=== PATIENT | female | born 1945 | race Caucasian/White ===

== ENCOUNTER 2020-06-15 10:45 | Inpatient (IN) | payer MEDICARE, BC ==
--- NOTE | 2020-06-15 11:02 | ED ---
URI HPI - General Chief Complaint: Upper Respiratory Infection Stated Complaint: Cough & fever Time Seen by Provider: 06/15/20 10:45 Source: patient, RN notes reviewed Mode of arrival: EMS Limitations: no limitations - History of Present Illness Initial Comments: This is a 74-year-old female who is still a smoker who presents by EMS from her assisted living facility with complaints of cough shortness of breath going on since last night. MD Complaint: fever, cough - Related Data Home Medications Medication Instructions Recorded Confirmed ALPRAZolam [Xanax] 0.25 mg PO TID PRN 06/15/20 06/15/20 Baclofen 10 mg PO BID@0800,199906/15/20 06/15/20 Betamethasone Dipropionate 1 applic TOPICAL BID PRN 06/15/20 06/15/20 [Diprolene AF 0.05% Cream] Carbamide Peroxide [Debrox Otic] 6 drops BOTH EARS DAILY PRN 06/15/20 06/15/20 Docusate [Colace] 100 mg PO BID@0800,199906/15/20 06/15/20 Fluticasone/Umeclidin/Vilanter 1 puff INHALATION RT-DAILY@199906/15/20 06/15/20 [Trelegy Ellipta 100-62.5-25] Furosemide [Lasix] 20 mg PO DAILY PRN 06/15/20 06/15/20 Gabapentin [Neurontin] 300 mg PO TID@0800,1300,199906/15/20 06/15/20 Ipratropium-Albuterol Nebulize 3 ml INHALATION RT-QID PRN 06/15/20 06/15/20 [Duoneb 0.5 mg-3 mg/3 ml Soln] Levothyroxine Sodium [Synthroid] 50 mcg PO DAILY@0800 06/15/20 06/15/20 Magnesium Hydroxide [Milk of 2,400 mg PO DAILY PRN 06/15/20 06/15/20 Magnesia] Meclizine HCl 25 mg PO BID PRN 06/15/20 06/15/20 Mupirocin 2% Oint [Bactroban 2% 1 applic TOPICAL TID PRN 06/15/20 06/15/20 Oint] Polyethylene Glycol 3350 [Miralax] 17 gm PO DAILY@0800 06/15/2006/15/20 Simvastatin [Zocor] 20 mg PO DAILY@199906/15/20 06/15/20 Vitamin B Complex 1 tab PO DAILY@79906/15/20 06/15/20 amLODIPine [Norvasc] 5 mg PO DAILY@79906/15/20 06/15/20 buPROPion HCL [Wellbutrin SR] 150 mg PO BID@0800,199906/15/20 06/15/20 guaiFENesin [guaiFENesin Oral 200 mg PO BID@0800,199906/15/20 06/15/20 Solution] metFORMIN HCL ER [Glucophage Xr] 500 mg PO DAILY@199906/15/20 06/15/20 risperiDONE 1.5 mg PO BID@08,199906/15/20 06/15/20 Allergies Allergy/AdvReac Type Severity Reaction Status Date / Time No Known Allergies Allergy Verified 06/15/20 11:32 Review of Systems ROS Statement: Those systems with pertinent positive or pertinent negative responses have been documented in the HPI. ROS Other: All systems not noted in ROS Statement are negative. Past Medical History Past Medical History: COPD, Diabetes Mellitus, Hypertension, Thyroid Disorder History of Any Multi-Drug Resistant Organisms: None Reported Past Psychological History: Schizophrenia Smoking Status: Current every day smoker Past Alcohol Use History: None Reported, Abuse Past Drug Use History: None Reported General Exam - General Exam Comments Initial Comments: Is a well-developed well-nourished awake alert female who does sound somewhat rhonchorous. Limitations: no limitations General appearance: alert, in no apparent distress Head exam: Present: atraumatic, normocephalic, normal inspection Eye exam: Present: normal appearance, PERRL, EOMI. Absent: scleral icterus, conjunctival injection, periorbital swelling ENT exam: Present: normal exam, mucous membranes moist Neck exam: Present: normal inspection, full ROM. Absent: tenderness, meningismus, lymphadenopathy Respiratory exam: Present: decreased breath sounds, other (Some scattered rhonchi). Absent: respiratory distress, wheezes, rales, rhonchi, stridor Cardiovascular Exam: Present: regular rate, normal rhythm, normal heart sounds. Absent: systolic murmur, diastolic murmur, rubs, gallop, clicks GI/Abdominal exam: Present: soft, normal bowel sounds. Absent: distended, tenderness, guarding, rebound, rigid Extremities exam: Present: normal inspection, full ROM, normal capillary refill. Absent: tenderness, pedal edema, joint swelling, calf tenderness Back exam: Present: normal inspection Neurological exam: Present: alert, oriented X3, CN II-XII intact Psychiatric exam: Present: normal affect, normal mood Skin exam: Present: warm, dry, intact, normal color. Absent: rash Course Vital Signs 06/15/20 06/15/20 06/15/20 10:48 11:33 12:14 Temperature 99.0 F Pulse Rate 78 69 Respiratory 18 17 Rate Blood Pressure 123/67 115/55 123/61 O2 Sat by Pulse 93 L 98 Oximetry Medical Decision Making - Medical Decision Making I did discuss case with the patient and with Dr. Sanchez patient be admitted place an IV antibiotics evidence of dehydration and hyponatremia rhabdomyolysis pneumonia - Lab Data Result diagrams: 06/15/20 10:49 06/15/20 10:49 Lab Results 06/15/20 06/15/20 06/15/20 Range/Units 10:49 10:49 10:49 WBC 15.5 H (3.8-10.6) k/uL RBC 3.58 L (3.80-5.40) m/uL Hgb 10.9 L (11.4-16.0) gm/dL Hct 32.8 L (34.0-46.0) % MCV 91.5 (80.0-100.0) fL MCH 30.4 (25.0-35.0) pg MCHC 33.3 (31.0-37.0) g/dL RDW 15.0 (11.5-15.5) % Plt Count 266 (150-450) k/uL Neutrophils % 89 % Lymphocytes % 5 % Monocytes % 4 % Eosinophils % 1 % Basophils % 0 % Neutrophils # 13.8 H (1.3-7.7) k/uL Lymphocytes # 0.8 L (1.0-4.8) k/uL Monocytes # 0.6 (0-1.0) k/uL Eosinophils # 0.1 (0-0.7) k/uL Basophils # 0.0 (0-0.2) k/uL PT 10.2 (9.0-12.0) sec INR 1.0 (<1.2) APTT 26.5 (22.0-30.0) sec Sodium 126 L (137-145) mmol/L Potassium 4.4 (3.5-5.1) mmol/L Chloride 93 L (98-107) mmol/L Carbon Dioxide 25 (22-30) mmol/L Anion Gap 8 mmol/L BUN 11 (7-17) mg/dL Creatinine 0.55 (0.52-1.04) mg/dL Est GFR (CKD-EPI)AfAm >90 (>60 ml/min/1.73 sqM) Est GFR (CKD-EPI)NonAf >90 (>60 ml/min/1.73 sqM) Glucose 185 H (74-99) mg/dL Plasma Lactic Acid Shawn (0.7-2.0) mmol/L Calcium 9.0 (8.4-10.2) mg/dL Magnesium 1.7 (1.6-2.3) mg/dL Total Bilirubin 0.5 (0.2-1.3) mg/dL AST 82 H (14-36) U/L ALT 37 H (4-34) U/L Alkaline Phosphatase 63 (38-126) U/L Creatine Kinase 1454 H* (30-135) U/L Troponin I (0.000-0.034) ng/mL NT-Pro-B Natriuret Pep pg/mL Total Protein 7.0 (6.3-8.2) g/dL Albumin 3.5 (3.5-5.0) g/dL 06/15/20 06/15/20 06/15/20 Range/Units 10:49 10:49 10:49 WBC (3.8-10.6) k/uL RBC (3.80-5.40) m/uL Hgb (11.4-16.0) gm/dL Hct (34.0-46.0) % MCV (80.0-100.0) fL MCH (25.0-35.0) pg MCHC (31.0-37.0) g/dL RDW (11.5-15.5) % Plt Count (150-450) k/uL Neutrophils % % Lymphocytes % % Monocytes % % Eosinophils % % Basophils % % Neutrophils # (1.3-7.7) k/uL Lymphocytes # (1.0-4.8) k/uL Monocytes # (0-1.0) k/uL Eosinophils # (0-0.7) k/uL Basophils # (0-0.2) k/uL PT (9.0-12.0) sec INR (<1.2) APTT (22.0-30.0) sec Sodium (137-145) mmol/L Potassium (3.5-5.1) mmol/L Chloride (98-107) mmol/L Carbon Dioxide (22-30) mmol/L Anion Gap mmol/L BUN (7-17) mg/dL Creatinine (0.52-1.04) mg/dL Est GFR (CKD-EPI)AfAm (>60 ml/min/1.73 sqM) Est GFR (CKD-EPI)NonAf (>60 ml/min/1.73 sqM) Glucose (74-99) mg/dL Plasma Lactic Acid Shawn 1.3 (0.7-2.0) mmol/L Calcium (8.4-10.2) mg/dL Magnesium (1.6-2.3) mg/dL Total Bilirubin (0.2-1.3) mg/dL AST (14-36) U/L ALT (4-34) U/L Alkaline Phosphatase (38-126) U/L Creatine Kinase (30-135) U/L Troponin I <0.012 (0.000-0.034) ng/mL NT-Pro-B Natriuret Pep 435 pg/mL Total Protein (6.3-8.2) g/dL Albumin (3.5-5.0) g/dL - EKG Data -: EKG Interpreted by Me EKG shows normal: sinus rhythm EKG Comments: Sinus rhythm of 79. Interval 170 QRS duration 96 QT since QTC 366/[address]-T wave configuration - Radiology Data Radiology results: report reviewed (I did review the imaging and report or is evidence of left lower lobe infiltrate his interstitial lung disease.), image reviewed Disposition Clinical Impression: Left lower lobe pneumonia, Dehydration, Rhabdomyolysis, Febrile illness, acute Disposition: ADMITTED IP TO THIS [facility] Condition: Fair Referrals: None,Stated [REFERRING] - 1-2 days
[2020-06-15 11:22] LABS: Basophils % (A) 0 %; Eosinophils # (A) 0.1 k/uL (0-0.7); Eosinophils % (A) 1 %; HCT 32.8 % (34.0-46.0); HGB 10.9 gm/dL (11.4-16.0); Lymphocytes # (A) 0.8 k/uL (1.0-4.8); Lymphocytes % (A) 5 %; MCH 30.4 pg (25.0-35.0); MCHC 33.3 g/dL (31.0-37.0); MCV 91.5 fL (80.0-100.0); Mean Platelet Volume 7.5; Monocytes # (A) 0.6 k/uL (0-1.0); Monocytes % (A) 4 %; Neutrophils # (A) 13.8 k/uL (1.3-7.7); Neutrophils % (A) 89 %; Platelet Count 266 k/uL (150-450); RBC 3.58 m/uL (3.80-5.40); WBC 15.5 k/uL (3.8-10.6)
[2020-06-15 11:26] LABS: ALT 37 U/L (4-34); AST 82 U/L (14-36); African American GFR (CKD) >90 (>60 ml/min/1.73 sqM); Albumin 3.5 g/dL (3.5-5.0); Alkaline Phosphatase 63 U/L (38-126); Anion Gap 8 mmol/L; Blood Urea Nitrogen 11 mg/dL (7-17); Carbon Dioxide 25 mmol/L (22-30); Chloride 93 mmol/L (98-107); Glucose 185 mg/dL (74-99); Magnesium 1.7 mg/dL (1.6-2.3); Non-African American GFR(CKD) >90 (>60 ml/min/1.73 sqM); Potassium 4.4 mmol/L (3.5-5.1); Sodium 126 mmol/L (137-145); Total Bilirubin 0.5 mg/dL (0.2-1.3)
[2020-06-15 11:32] LABS: Partial Thromboplastin Time 26.5 sec (22.0-30.0); Prothrombin Time 10.2 sec (9.0-12.0)
[2020-06-15 11:40] LABS: Creatine Kinase 1454 U/L (30-135)
--- NOTE | 2020-06-15 13:04 | XR ---
EXAMINATION TYPE: XR chest 2V DATE OF EXAM: 06/15/2020 HISTORY: difficulty breathing. REFERENCE: NONE. FINDINGS: The lungs are overinflated. The heart is not enlarged. There are increased interstitial mar kings throughout both lungs. This may BE acute or chronic. There is some confluent airspace disease a t the left lung base. I could not exclude superimposed pneumonia. There is blunting of both CP angles which may be secondary to overinflation or small effusions. IMPRESSION: 1. COPD. 2. CIRCULAR SOME DEGREE OF INTERSTITIAL LUNG DISEASE. 3. I CANNOT EXCLUDE SUPERIMPOSED PNEUMONIA AT THE LEFT LUNG BASE.
[2020-06-15] MEDS ORDERED: PNEUMONIA PROTOCOL UTILIZED 1 EACH MISC PO PRN (13:22)
[2020-06-15] MEDS ORDERED: AZITHROMYCIN 500 MG in SODIUM CHLORIDE 0.9% 250 ML IVPB STA (13:22)
[2020-06-15] MEDS ORDERED: MAGNESIUM HYDROXIDE 2,400 MG/10 ML CUP PO PRN (13:27)
[2020-06-15] MEDS ORDERED: CARBAMIDE PEROXIDE 6.5% DROPS 15 ML BTL BOTH EARS PRN (13:27)
[2020-06-15] MEDS ORDERED: IPRATROPIUM-ALBUTEROL 3 ML NEB INHALATION PRN (13:27)
[2020-06-15] MEDS ORDERED: MUPIROCIN 2% OINT 22 GM TUBE TOPICAL PRN (13:27)
[2020-06-15] MEDS ORDERED: BETAMETHASONE DIPROPIONATE 0.05% CREAM 15 GM TUBE TOPICAL PRN (13:27)
[2020-06-15] MEDS ORDERED: MECLIZINE 25 MG TAB PO PRN (13:27)
[2020-06-15] MEDS ORDERED: FUROSEMIDE 20 MG TAB PO PRN (13:27)
[2020-06-15] MEDS: ALPRAZolam 0.25 MG TAB PO PRN (14:13)
[2020-06-15] MEDS: SODIUM CHLORIDE 0.9% 1,000 ML IV SCH ×2 (14:13→21:39)
[2020-06-15 16:47] LABS: Glucose,Whole Blood 106 mg/dL (75-99)
[2020-06-15] MEDS: HYDROcodone/APAP 5-325MG 1 EACH TAB PO PRN (19:24)
[2020-06-15] MEDS: buPROPion SR 150 MG TABLET.ER PO SCH (19:25)
[2020-06-15] MEDS: GABAPENTIN 300 MG CAP PO SCH (19:25)
[2020-06-15] MEDS: ATORVASTATIN 10 MG TAB PO SCH (19:25)
[2020-06-15] MEDS: BACLOFEN 10 MG TAB PO SCH (19:25)
[2020-06-15] MEDS: DOCUSATE 100 MG CAP PO SCH (19:25)
[2020-06-15] MEDS: risperiDONE 0.5 MG TAB PO SCH (19:25)
[2020-06-15] MEDS: guaiFENesin SYRUP 100MG/5ML 200 MG/10 ML CUP PO SCH (19:25)
[2020-06-15] MEDS: metFORMIN 500 MG TAB PO SCH (19:26)
[2020-06-15 19:47] LABS: Glucose,Whole Blood 179 mg/dL (75-99)
[2020-06-15] MEDS: INSULIN ASPART (NovoLOG) 100 UNIT/ML VIAL SQ SCH (20:55)
[2020-06-15] MEDS: IPRATROPIUM 0.5 MG/2.5 ML NEBU INHALATION SCH (21:28)
[2020-06-15] MEDS: SYMBICORT 80-4.5 MCG INHALER INHALATION SCH (21:28)
[2020-06-16] MEDS: SODIUM CHLORIDE 0.9% 1,000 ML IV SCH ×3 (05:29→20:27)
[2020-06-16 07:00] LABS: Glucose,Whole Blood 108 mg/dL (75-99)
[2020-06-16] MEDS: INSULIN ASPART (NovoLOG) 100 UNIT/ML VIAL SQ SCH ×4 (07:08→20:27)
[2020-06-16] MEDS: metFORMIN 500 MG TAB PO SCH ×2 (07:24→20:26)
[2020-06-16] MEDS: amLODIPine 5 MG TAB PO SCH (07:24)
[2020-06-16] MEDS: BACLOFEN 10 MG TAB PO SCH ×2 (07:24→20:26)
[2020-06-16] MEDS: LEVOTHYROXINE 50 MCG TAB PO SCH (07:24)
--- NOTE | 2020-06-16 07:24 | XR ---
EXAMINATION TYPE: XR chest 1V portable DATE OF EXAM: 06/16/2020 HISTORY: pneumonia. REFERENCE: Previous study dated 06/15/2020. FINDINGS: There is a worsening left basilar infiltrate and a worsening left-sided effusion. Heart siz e upper limits of normal. IMPRESSION: WORSENING LEFT-SIDED INFILTRATE WITH A CONCOMITANT EFFUSION.
[2020-06-16] MEDS: risperiDONE 0.5 MG TAB PO SCH ×2 (07:25→20:27)
[2020-06-16] MEDS: GABAPENTIN 300 MG CAP PO SCH ×3 (07:25→20:26)
[2020-06-16] MEDS: guaiFENesin SYRUP 100MG/5ML 200 MG/10 ML CUP PO SCH ×2 (07:25→20:26)
[2020-06-16] MEDS: DOCUSATE 100 MG CAP PO SCH ×2 (07:25→20:26)
[2020-06-16] MEDS: ALPRAZolam 0.25 MG TAB PO PRN ×2 (07:25→17:36)
[2020-06-16] MEDS: AZITHROMYCIN 500 MG TAB PO SCH (07:26)
[2020-06-16] MEDS: polyethylene glycoL 3350 17 GM POWD.PACK PO SCH (07:26)
[2020-06-16] MEDS: buPROPion SR 150 MG TABLET.ER PO SCH ×2 (07:26→20:27)
[2020-06-16] MEDS ORDERED: NON FORMULARY DRUG (Vitamin B Complex [Vitamin B Complex] 1 TAB) PO SCH (08:00)
[2020-06-16] MEDS: SYMBICORT 80-4.5 MCG INHALER INHALATION SCH ×2 (08:59→20:15)
[2020-06-16] MEDS: IPRATROPIUM 0.5 MG/2.5 ML NEBU INHALATION SCH ×4 (08:59→20:15)
[2020-06-16 10:10] LABS: African American GFR (CKD) >90 (>60 ml/min/1.73 sqM); Anion Gap 6 mmol/L; Blood Urea Nitrogen 7 mg/dL (7-17); Calcium 8.7 mg/dL (8.4-10.2); Carbon Dioxide 25 mmol/L (22-30); Chloride 100 mmol/L (98-107); Glucose 104 mg/dL (74-99); Non-African American GFR(CKD) >90 (>60 ml/min/1.73 sqM); Sodium 131 mmol/L (137-145)
[2020-06-16 10:15] LABS: HCT 31.7 % (34.0-46.0); HGB 10.3 gm/dL (11.4-16.0); MCH 30.1 pg (25.0-35.0); MCHC 32.6 g/dL (31.0-37.0); MCV 92.5 fL (80.0-100.0); Mean Platelet Volume 7.6; Platelet Count 267 k/uL (150-450); RBC 3.43 m/uL (3.80-5.40); RDW 15.1 % (11.5-15.5); WBC 8.9 k/uL (3.8-10.6)
[2020-06-16 12:16] LABS: Glucose,Whole Blood 96 mg/dL (75-99)
--- NOTE | 2020-06-16 12:54 | P.HPIM ---
History of Present Illness H&P Date: 06/16/20 Sofía Leslie, is a 74-year-old female patient of Dr. Jacob, who presented to [facility] emergency room with a chief complaint of cough and shortness of breath for about 24 hours, patient was evaluated in the emergency room, her chest x-ray was suspicious for pneumonia, Covid 19 testing was done and is still pending, patient is a smoker, she lives in an assisted living facility. Patient has a known history of hypertension, hyperlipidemia, hypothyroidism , ood-pyrcvao-nyzimkkxf diabetes mellitus, COPD, and history of alcohol abuse, she has psychiatry care illness requiring the use of risperidone , Xanax , and Wellbutrin however patient is unable to give any significant details. On review of systems patient stated that she is feeling well, she is sitting up at the edge of the bed eating her meal, she stated that her cough and her shortness of breath has improved since admission, there is no fever or chills no headache or dizziness no chest pain no no nausea or vomiting no abdominal pain no diarrhea no blood in the stools, no burning with urination no frequency or urgency and no hematuria. Past Medical History Past Medical History: COPD, Diabetes Mellitus, Hypertension, Thyroid Disorder History of Any Multi-Drug Resistant Organisms: None Reported Past Anesthesia/Blood Transfusion Reactions: No Reported Reaction Past Psychological History: Depression, Schizophrenia Additional Psychological History / Comment(s): SEVERELY PARANOID Smoking Status: Current every day smoker Past Alcohol Use History: None Reported, Abuse Past Drug Use History: None Reported Medications and Allergies Home Medications Medication Instructions Recorded Confirmed Type ALPRAZolam [Xanax] 0.25 mg PO TID PRN 06/15/20 06/15/20 History Baclofen 10 mg PO BID@0800,199906/15/20 06/15/20 History Betamethasone Dipropionate 1 applic TOPICAL BID PRN 06/15/20 06/15/20 History [Diprolene AF 0.05% Cream] Carbamide Peroxide [Debrox Otic] 6 drops BOTH EARS DAILY PRN 06/15/20 06/15/20 History Docusate [Colace] 100 mg PO BID@0800,199906/15/20 06/15/20 History Fluticasone/Umeclidin/Vilanter 1 puff INHALATION RT-DAILY@199906/15/20 06/15/20 History [Trelegy Ellipta 100-62.5-25] Furosemide [Lasix] 20 mg PO DAILY PRN 06/15/20 06/15/20 History Gabapentin [Neurontin] 300 mg PO TID@0800,1300,199906/15/20 06/15/20 History Ipratropium-Albuterol Nebulize 3 ml INHALATION RT-QID PRN 06/15/20 06/15/20 History [Duoneb 0.5 mg-3 mg/3 ml Soln] Levothyroxine Sodium [Synthroid] 50 mcg PO DAILY@0800 06/15/20 06/15/20 History Magnesium Hydroxide [Milk of 2,400 mg PO DAILY PRN 06/15/20 06/15/20 History Magnesia] Meclizine HCl 25 mg PO BID PRN 06/15/20 06/15/20 History Mupirocin 2% Oint [Bactroban 2% 1 applic TOPICAL TID PRN 06/15/20 06/15/20 History Oint] Polyethylene Glycol 3350 [Miralax] 17 gm PO DAILY@0806/15/20 06/15/20 History Simvastatin [Zocor] 20 mg PO DAILY@199906/15/20 06/15/20 History Vitamin B Complex 1 tab PO DAILY@0806/15/20 06/15/20 History amLODIPine [Norvasc] 5 mg PO DAILY@0800 06/15/20 06/15/20 History buPROPion HCL [Wellbutrin SR] 150 mg PO BID@0800,199906/15/20 06/15/20 History guaiFENesin [guaiFENesin Oral 200 mg PO BID@0800,199906/15/20 06/15/20 History Solution] metFORMIN HCL ER [Glucophage Xr] 500 mg PO DAILY@199906/15/20 06/15/20 History risperiDONE 1.5 mg PO BID@0800,199906/15/20 06/15/20 History Allergies Allergy/AdvReac Type Severity Reaction Status Date / Time No Known Allergies Allergy Verified 06/15/20 11:32 Physical Exam Vitals: Vital Signs Temp Pulse Pulse Resp BP BP Pulse Ox 06/16/20 07:00 97.5 F L 57 L 17 143/71 97 06/16/20 04:00 18 06/16/20 01:36 97.5 F L 59 L 18 113/64 97 06/16/20 00:00 18 06/15/20 21:44 63 06/15/20 21:29 63 97 06/15/20 20:00 98.3 F 93 18 121/70 98 06/15/20 19:55 18 06/15/20 19:39 97.7 F 70 18 132/72 96 06/15/20 14:32 98.4 F 73 19 139/66 90 L 06/15/20 14:25 99.1 F 71 18 121/71 98 Intake and Output 06/15/20 06/16/20 06/16/20 22:59 06:59 14:59 Other: # Voids 0 2 In general patient is alert and oriented 3 in no apparent distress HEENT head normocephalic and atraumatic Neck is supple no JVD no goiter no lymphadenopathy Chest exam reveals coarse crackles in both lung conley no wheezing Cardiac exam reveals regular heart sounds no gallops no murmurs Abdomen is soft nontender no organomegaly with normal bowel sounds Extremity exam reveals no edema no cyanosis or clubbing Neurological examination reveals no gross focal deficit Results CBC & Chem 7: 06/16/20 09:28 06/16/20 09:28 Labs: Abnormal Lab Results - Last 24 Hours (Table) 06/15/20 06/15/20 06/16/20 Range/Units 16:45 19:45 06:58 RBC (3.80-5.40) m/uL Hgb (11.4-16.0) gm/dL Hct (34.0-46.0) % Sodium (137-145) mmol/L Creatinine (0.52-1.04) mg/dL Glucose (74-99) mg/dL POC Glucose (mg/dL) 106 H 179 H 108 H (75-99) mg/dL Creatine Kinase (30-135) U/L 06/16/20 06/16/20 06/16/20 Range/Units 09:28 09:28 09:28 RBC 3.43 L (3.80-5.40) m/uL Hgb 10.3 L (11.4-16.0) gm/dL Hct 31.7 L (34.0-46.0) % Sodium 131 L (137-145) mmol/L Creatinine 0.40 L (0.52-1.04) mg/dL Glucose 104 H (74-99) mg/dL POC Glucose (mg/dL) (75-99) mg/dL Creatine Kinase 806 H (30-135) U/L Thrombosis Risk Factor Assmnt - Choose All That Apply Each Factor Represents 1 point: Obesity (BMI >25), Serious lung disease incl. pneumonia (< 1month) Each Risk Factor Represents 3 Points: Age 75 years or older Thrombosis Risk Factor Assessment Total Risk Factor Score: 5 Thrombosis Risk Factor Assessment Level: High Risk Assessment and Plan Plan: 1. Pneumonia, patient is admitted to medical floor she was started on IV Rocephin and Zithromax, Covid 19 testing is still pending, I will consult infectious disease and pulmonary at this time, continue current antibiotics 2. Underlying history of hypertension well-controlled on current medications continue 3. Underlying history of qxy-yezlnqn-zaylkvail diabetes mellitus maintained on metformin continue 4. Underlying history of hyperlipidemia maintained on simvastatin continue 5. History of mental illness, unable to qualify at this time patient was maintained on risperidone, Wellbutrin, and Xanax as outpatient will continue with current medication 6. Underlying history of hypothyroidism maintained on Synthroid continue 7. For DVT prophylaxis we will use Lovenox for GI prophylaxis Will use Protonix Will follow during this admission, Course will depend on clinical progress, sputum culture results, and Covid 19 testing results
[2020-06-16] MEDS: ENOXAPARIN 40 MG/0.4 ML SYRINGE SQ SCH (13:05)
--- NOTE | 2020-06-16 13:59 | P.CNPUL ---
History of Present Illness Consult date: 06/16/20 Reason for consult: pneumonia History of present illness: A 74-year-old female patient presented to the hospital because of increased cough and shortness of breath of few days' duration. She was seen in the ED and x-ray was suspicion for pneumonia as the patient lower lobe infiltrate left more than right. The patient has multiple other comorbidities including hypertension and hyperlipidemia and hypothyroidism and COPD and diabetes mellitus which is [id number]. She has COPD and chronic alcohol abuse. She has also psychiatric history and she is demented on a combination of sick medication included risperidone Xanax and Wellbutrin. The patient had a white cell count of 15.5. Hemoglobin was at 10.9. Platelets of 266. Sodium was 126, bicarbonate up to 131. Serum bicarb is 25. BUN is 11 with a creatinine of 0.55. The patient also had a lactic acid level of 1.3. Calcium level is 9. CPK is at 1454 with a cecal dropped down to 806. Troponin was negative 1. ProBNP level is 435. The chest x-ray showed a left lower lobe pulmonary infiltrate on 06/15/2020. Subsequent chest x-rays was done on 06/16/2020 showed worsening in the left-sided pulmonary infiltrate with a development of an effusion. The patient is currently on DuoNeb neb regimen [id number]. The patient was given accommodation Rocephin and Zithromax. The patient was kept on Symbicort. Home medication been ordered resume. She is also on Lovenox for DVT prophylaxis.: The COVID 19 evaluation still pending for now. The history is quite limited as the patient has severe paranoia related to her underlying schizophrenia. Review of Systems Constitutional: Reports as per HPI Eyes: denies as per HPI, denies blurred vision, denies bulging eye, denies decreased vision, denies diplopia, denies discharge, denies dry eye, denies irritation, denies itching, denies pain, denies photophobia, denies loss of peripheral vision, denies loss of vision, denies tunnel vision/blind spots Ears: deny: decreased hearing, ear discharge, earache, tinnitus Ears, nose, mouth and throat: Denies headache, Denies sore throat Breasts: absent: as per HPI, change in shape, gynecomastia, masses, nipple discharge, pain, skin changes, swelling Cardiovascular: Reports decreased exercise tolerance, Reports dyspnea on exertion Respiratory: Reports cough, Reports dyspnea Gastrointestinal: Reports as per HPI Genitourinary: Reports as per HPI Menstruation: Reports as per HPI Musculoskeletal: Reports as per HPI Musculoskeletal: absent: ankle pain, ankle stiffness, ankle swelling, as per HPI, elbow pain, elbow stiffness, elbow swelling, foot pain, foot stiffness, foot swelling, hand pain, hand stiffness, hand swelling, hip pain, hip stiffness, hip swelling, knee pain, knee stiffness, knee swelling, shoulder pain, shoulder stiffness, shoulder swelling, wrist pain, wrist stiffness, wrist swelling Integumentary: Reports as per HPI Neurological: Reports as per HPI Psychiatric: Reports as per HPI Endocrine: Reports as per HPI Past Medical History Past Medical History: COPD, Diabetes Mellitus, Hyperlipidemia, Hypertension, Thyroid Disorder History of Any Multi-Drug Resistant Organisms: None Reported Past Anesthesia/Blood Transfusion Reactions: No Reported Reaction Past Psychological History: Depression, Schizophrenia Additional Psychological History / Comment(s): SEVERELY PARANOID Smoking Status: Current every day smoker Past Alcohol Use History: None Reported, Abuse Past Drug Use History: None Reported Medications and Allergies Home Medications Medication Instructions Recorded Confirmed Type ALPRAZolam [Xanax] 0.25 mg PO TID PRN 06/15/20 06/15/20 History Baclofen 10 mg PO BID@0800,199906/15/20 06/15/20 History Betamethasone Dipropionate 1 applic TOPICAL BID PRN 06/15/20 06/15/20 History [Diprolene AF 0.05% Cream] Carbamide Peroxide [Debrox Otic] 6 drops BOTH EARS DAILY PRN 06/15/20 06/15/20 History Docusate [Colace] 100 mg PO BID@0800,199906/15/20 06/15/20 History Fluticasone/Umeclidin/Vilanter 1 puff INHALATION RT-DAILY@199906/15/20 06/15/20 History [Trelegy Ellipta 100-62.5-25] Furosemide [Lasix] 20 mg PO DAILY PRN 06/15/20 06/15/20 History Gabapentin [Neurontin] 300 mg PO TID@0800,1300,199906/15/20 06/15/20 History Ipratropium-Albuterol Nebulize 3 ml INHALATION RT-QID PRN 06/15/20 06/15/20 History [Duoneb 0.5 mg-3 mg/3 ml Soln] Levothyroxine Sodium [Synthroid] 50 mcg PO DAILY@79906/15/20 06/15/20 History Magnesium Hydroxide [Milk of 2,400 mg PO DAILY PRN 06/15/20 06/15/20 History Magnesia] Meclizine HCl 25 mg PO BID PRN 06/15/20 06/15/20 History Mupirocin 2% Oint [Bactroban 2% 1 applic TOPICAL TID PRN 06/15/20 06/15/20 History Oint] Polyethylene Glycol 3350 [Miralax] 17 gm PO DAILY@79906/15/20 06/15/20 History Simvastatin [Zocor] 20 mg PO DAILY@199906/15/20 06/15/20 History Vitamin B Complex 1 tab PO DAILY@0806/15/20 06/15/20 History amLODIPine [Norvasc] 5 mg PO DAILY@79906/15/20 06/15/20 History buPROPion HCL [Wellbutrin SR] 150 mg PO BID@0800,199906/15/20 06/15/20 History guaiFENesin [guaiFENesin Oral 200 mg PO BID@0800,199906/15/20 06/15/20 History Solution] metFORMIN HCL ER [Glucophage Xr] 500 mg PO DAILY@199906/15/20 06/15/20 History risperiDONE 1.5 mg PO BID@0800,199906/15/20 06/15/20 History Allergies Allergy/AdvReac Type Severity Reaction Status Date / Time No Known Allergies Allergy Verified 06/15/20 11:32 Physical Exam Vitals: Vital Signs Temp Pulse Pulse Resp BP BP Pulse Ox 06/16/20 07:00 97.5 F L 57 L 17 143/71 97 06/16/20 04:00 18 06/16/20 01:36 97.5 F L 59 L 18 113/64 97 06/16/20 00:00 18 06/15/20 21:44 63 06/15/20 21:29 63 97 06/15/20 20:00 98.3 F 93 18 121/70 98 06/15/20 19:55 18 06/15/20 19:39 97.7 F 70 18 132/72 96 06/15/20 14:32 98.4 F 73 19 139/66 90 L 06/15/20 14:25 99.1 F 71 18 121/71 98 Intake and Output 06/15/20 06/16/20 06/16/20 22:59 06:59 14:59 Other: # Voids 0 2 The patient appeared well nourished and normally developed. Vital signs as documented. Head exam is unremarkable. No scleral icterus or corneal arcus noted. Neck is without jugular venous distension, thyromegaly, or carotid bruits. Carotid upstrokes are brisk bilaterally. Lungs are demonstrating c rackles lung base bilaterally more so on the left and there is diminished breath sound lung bases. Cardiac exam reveals the PMI to be normally sized and situated. Rhythm is regular. First and second heart sounds normal. No murmurs, rubs or gallops. Abdominal exam reveals normal bowel sounds, no masses, no organomegaly and no aortic enlargement. Extremities are nonedematous and both femoral and pedal pulses are normal.Neurologically, the patient is awake and alert and the patient does not have any focal neurological deficit. Cranial nerves are essentially intact. Results - Laboratory Findings CBC and BMP: 06/16/20 09:28 06/16/20 09:28 PT/INR, D-dimer PT 10.2 sec (9.0-12.0) 06/15/20 10:49 INR 1.0 (<1.2) 06/15/20 10:49 Abnormal lab findings: Abnormal Labs 06/15/20 06/15/20 06/15/20 10:49 10:49 16:45 WBC 15.5 H RBC 3.58 L Hgb 10.9 L Hct 32.8 L Neutrophils # 13.8 H Lymphocytes # 0.8 L Sodium 126 L Chloride 93 L Creatinine Glucose 185 H POC Glucose (mg/dL) 106 H AST 82 H ALT 37 H Creatine Kinase 1454 H* 06/15/20 06/16/20 06/16/20 19:45 06:58 09:28 WBC RBC 3.43 L Hgb 10.3 L Hct 31.7 L Neutrophils # Lymphocytes # Sodium Chloride Creatinine Glucose POC Glucose (mg/dL) 179 H 108 H AST ALT Creatine Kinase 06/16/20 06/16/20 09:28 09:28 WBC RBC Hgb Hct Neutrophils # Lymphocytes # Sodium 131 L Chloride Creatinine 0.40 L Glucose 104 H POC Glucose (mg/dL) AST ALT Creatine Kinase 806 H - Diagnostic Findings Chest x-ray: image reviewed Assessment and Plan Plan: 1 left lower lobe pneumonia with a small left-sided pleural effusion. The p atient a combination of Rocephin and Zithromax. There are coronavirus COVID 19 evaluation is still pending. Nevertheless, overall suspicion for COVID 19 is low. 2 acute hypoxic respiratory failure secondary to above 3 COPD maintained on Trelegy Ellipta 1 inhalation daily on an outpatient basis 4 [id number] diabetes mellitus 5 hypertension 6 hyperlipidemia 7 hypothyroidism 8 schizophrenia with severe paranoid ideations. The patient's history is extremely limited due to her severe paranoia. 9 depression Plan Continue Rocephin and Zithromax Check pro-calcitonin level Check coronavirus Covid 19 nasal swab by PCR Resume all medications Blood cultures Sputum Gram stain and culture DuoNeb nebulized treatment 4 times a day [id number] Agree on Symbicort for now We'll follow
[2020-06-16 16:37] LABS: Glucose,Whole Blood 116 mg/dL (75-99)
[2020-06-16] MEDS: ATORVASTATIN 10 MG TAB PO SCH (20:26)
[2020-06-16 20:27] LABS: Glucose,Whole Blood 109 mg/dL (75-99)
[2020-06-16] MEDS: HYDROcodone/APAP 5-325MG 1 EACH TAB PO PRN (22:55)
[2020-06-17] MEDS: SODIUM CHLORIDE 0.9% 1,000 ML IV SCH ×3 (04:45→19:03)
--- NOTE | 2020-06-17 07:12 | P.CONS ---
History of Present Illness - Reason for Consult Consult date: 06/16/20 Pneumonia Requesting physician: Agnieszka Sanchez - Chief Complaint Shortness of breath and cough 1 day - History of Present Illness Patient is a 74-year-old female with a past medical history significant for COPD and psychiatric illness currently an adult foster care resident patient has been brought into the ER For evaluation of increasing shortness of breath and cough that apparently started the day before presentation to the hospital patient denies having any chest pain is complaining of shortness of breath on minimal exertion she also have a cough and bring up some sputum however she not hear about the color patient denies having any chest pain denies having any nausea no vomiting no choking on the food no abdominal pain and no diarrhea with the symptoms the patient was evaluated by the ER physician on arrival to the ER the patient was afebrile however she did have elevated white count of 15,000 patient did have a chest x-ray on admission that was suspicious for left lower lobe pneumonia a repeat x-ray this morning showing slight worsening of left lower lobe pneumonia along with some confusion however her white count has normalized patient has been treated with Rocephin and Zithromax infectious disease was consulted for further management of antibiotic therapy, Covid 19 testing came back negative Review of Systems Positive points mentioned in HPI however the patient is not good historian complete review of systems could not be completed Past Medical History Past Medical History: COPD, Diabetes Mellitus, Hypertension, Thyroid Disorder History of Any Multi-Drug Resistant Organisms: None Reported Past Anesthesia/Blood Transfusion Reactions: No Reported Reaction Past Psychological History: Depression, Schizophrenia Additional Psychological History / Comment(s): SEVERELY PARANOID Smoking Status: Current every day smoker Past Alcohol Use History: None Reported, Abuse Past Drug Use History: None Reported Medications and Allergies Home Medications Medication Instructions Recorded Confirmed Type ALPRAZolam [Xanax] 0.25 mg PO TID PRN 06/15/20 06/15/20 History Baclofen 10 mg PO BID@0800,199906/15/20 06/15/20 History Betamethasone Dipropionate 1 applic TOPICAL BID PRN 06/15/20 06/15/20 History [Diprolene AF 0.05% Cream] Carbamide Peroxide [Debrox Otic] 6 drops BOTH EARS DAILY PRN 06/15/20 06/15/20 History Docusate [Colace] 100 mg PO BID@0800,199906/15/20 06/15/20 History Fluticasone/Umeclidin/Vilanter 1 puff INHALATION RT-DAILY@199906/15/20 06/15/20 History [Trelegy Ellipta 100-62.5-25] Furosemide [Lasix] 20 mg PO DAILY PRN 06/15/20 06/15/20 History Gabapentin [Neurontin] 300 mg PO TID@0800,1300,199906/15/20 06/15/20 History Ipratropium-Albuterol Nebulize 3 ml INHALATION RT-QID PRN 06/15/20 06/15/20 History [Duoneb 0.5 mg-3 mg/3 ml Soln] Levothyroxine Sodium [Synthroid] 50 mcg PO DAILY@79906/15/20 06/15/20 History Magnesium Hydroxide [Milk of 2,400 mg PO DAILY PRN 06/15/20 06/15/20 History Magnesia] Meclizine HCl 25 mg PO BID PRN 06/15/20 06/15/20 History Mupirocin 2% Oint [Bactroban 2% 1 applic TOPICAL TID PRN 06/15/20 06/15/20 History Oint] Polyethylene Glycol 3350 [Miralax] 17 gm PO DAILY@79906/15/20 06/15/20 History Simvastatin [Zocor] 20 mg PO DAILY@199906/15/20 06/15/20 History Vitamin B Complex 1 tab PO DAILY@0806/15/20 06/15/20 History amLODIPine [Norvasc] 5 mg PO DAILY@79906/15/20 06/15/20 History buPROPion HCL [Wellbutrin SR] 150 mg PO BID@0800,199906/15/20 06/15/20 History guaiFENesin [guaiFENesin Oral 200 mg PO BID@08,199906/15/20 06/15/20 History Solution] metFORMIN HCL ER [Glucophage Xr] 500 mg PO DAILY@199906/15/20 06/15/20 History risperiDONE 1.5 mg PO BID@0800,199906/15/20 06/15/20 History Allergies Allergy/AdvReac Type Severity Reaction Status Date / Time No Known Allergies Allergy Verified 06/15/20 11:32 Physical Exam Vitals: Vital Signs Temp Pulse Pulse Resp BP BP Pulse Ox 06/16/20 07:00 97.5 F L 57 L 17 143/71 97 06/16/20 04:00 18 06/16/20 01:36 97.5 F L 59 L 18 113/64 97 06/16/20 00:00 18 06/15/20 21:44 63 06/15/20 21:29 63 97 06/15/20 20:00 98.3 F 93 18 121/70 98 06/15/20 19:55 18 06/15/20 19:39 97.7 F 70 18 132/72 96 06/15/20 14:32 98.4 F 73 19 139/66 90 L 06/15/20 14:25 99.1 F 71 18 121/71 98 Intake and Output 06/15/20 06/16/20 06/16/20 22:59 06:59 14:59 Other: # Voids 0 2 GENERAL DESCRIPTION: An elderly female up in the chair, no distress. No tachypnea or accessory muscle of respiration use. HEENT: Shows Pallor , no scleral icterus. Oral mucous membrane is dry. No pharyngeal erythema or thrush NECK: Trachea central, no thyromegaly. LUNGS: Unlabored breathing. Decreased breath sound at the base. No wheeze or crackle. HEART: S1, S2, regular rate and rhythm. No loud murmur ABDOMEN: Soft, no tenderness , guarding or rigidity, no organomegaly EXTREMITIES: No edema of feet. SKIN: No rash, no masses palpable. NEUROLOGICAL: The patient is awake, alert, oriented x2, mood and affect normal. Results CBC & Chem 7: 06/16/20 09:28 06/16/20 09:28 Labs: Abnormal Lab Results - Last 24 Hours (Table) 06/15/20 06/15/20 06/16/20 Range/Units 16:45 19:45 06:58 RBC (3.80-5.40) m/uL Hgb (11.4-16.0) gm/dL Hct (34.0-46.0) % Sodium (137-145) mmol/L Creatinine (0.52-1.04) mg/dL Glucose (74-99) mg/dL POC Glucose (mg/dL) 106 H 179 H 108 H (75-99) mg/dL Creatine Kinase (30-135) U/L 06/16/20 06/16/20 06/16/20 Range/Units 09:28 09:28 09:28 RBC 3.43 L (3.80-5.40) m/uL Hgb 10.3 L (11.4-16.0) gm/dL Hct 31.7 L (34.0-46.0) % Sodium 131 L (137-145) mmol/L Creatinine 0.40 L (0.52-1.04) mg/dL Glucose 104 H (74-99) mg/dL POC Glucose (mg/dL) (75-99) mg/dL Creatine Kinase 806 H (30-135) U/L Assessment and Plan Assessment: 1- patient presented to hospital with increasing shortness of breath and cough in this patient was noticed to have left lower lobe infiltrate and elevated white count on admission the patient white count subsequently normalized however the x-ray showing worsening of the left lower lobe infiltrate with some effusion with a question of possible community acquired pneumonia And the patient currently does not look toxic and is not running any fever and covid 19 testing came back negative (1) Left lower lobe pneumonia Current Visit: Yes Status: Acute Code(s): J18.9 - PNEUMONIA, UNSPECIFIED O RGANISM SNOMED Code(s): 663520603 Plan: 1- we will obtain sputum for Gram stain and culture 2- check a CRP and procalcitonin level 3- Rocephin 1 g daily and Zithromax to continue We will follow on clinical condition and cultures to further adjust medication if needed Thank you for this consultation will follow this patient with you Time with Patient: Greater than 30
[2020-06-17 07:37] LABS: Glucose,Whole Blood 92 mg/dL (75-99)
[2020-06-17 07:43] LABS: Basophils % (A) 0 %; Eosinophils # (A) 0.3 k/uL (0-0.7); Eosinophils % (A) 4 %; HCT 33.5 % (34.0-46.0); HGB 10.7 gm/dL (11.4-16.0); Lymphocytes # (A) 1.2 k/uL (1.0-4.8); Lymphocytes % (A) 17 %; MCH 29.5 pg (25.0-35.0); MCHC 31.8 g/dL (31.0-37.0); MCV 92.7 fL (80.0-100.0); Mean Platelet Volume 7.1; Monocytes # (A) 0.5 k/uL (0-1.0); Monocytes % (A) 7 %; Neutrophils # (A) 4.7 k/uL (1.3-7.7); Neutrophils % (A) 69 %; Platelet Count 291 k/uL (150-450); RBC 3.61 m/uL (3.80-5.40); RDW 15.1 % (11.5-15.5); WBC 6.9 k/uL (3.8-10.6)
[2020-06-17 07:53] LABS: ALT 36 U/L (4-34); AST 38 U/L (14-36); African American GFR (CKD) >90 (>60 ml/min/1.73 sqM); Albumin 3.2 g/dL (3.5-5.0); Alkaline Phosphatase 63 U/L (38-126); Anion Gap 6 mmol/L; Blood Urea Nitrogen 4 mg/dL (7-17); Calcium 8.8 mg/dL (8.4-10.2); Carbon Dioxide 25 mmol/L (22-30); Chloride 101 mmol/L (98-107); Glucose 114 mg/dL (74-99); Non-African American GFR(CKD) >90 (>60 ml/min/1.73 sqM); Potassium 4.1 mmol/L (3.5-5.1); Sodium 132 mmol/L (137-145); Total Bilirubin 0.5 mg/dL (0.2-1.3); Total Protein 6.6 g/dL (6.3-8.2)
[2020-06-17] MEDS: INSULIN ASPART (NovoLOG) 100 UNIT/ML VIAL SQ SCH ×4 (08:15→20:47)
[2020-06-17] MEDS: BACLOFEN 10 MG TAB PO SCH ×2 (08:22→20:48)
[2020-06-17] MEDS: GABAPENTIN 300 MG CAP PO SCH ×3 (08:22→20:48)
[2020-06-17] MEDS: PANTOPRAZOLE 40 MG TABLET PO SCH (08:22)
[2020-06-17] MEDS: amLODIPine 5 MG TAB PO SCH (08:22)
[2020-06-17] MEDS: buPROPion SR 150 MG TABLET.ER PO SCH ×2 (08:22→20:49)
[2020-06-17] MEDS: metFORMIN 500 MG TAB PO SCH ×2 (08:22→20:48)
[2020-06-17] MEDS: AZITHROMYCIN 500 MG TAB PO SCH (08:22)
[2020-06-17] MEDS: DOCUSATE 100 MG CAP PO SCH ×2 (08:22→20:48)
[2020-06-17] MEDS: guaiFENesin SYRUP 100MG/5ML 200 MG/10 ML CUP PO SCH ×2 (08:23→20:49)
[2020-06-17] MEDS: risperiDONE 0.5 MG TAB PO SCH ×2 (08:24→20:49)
[2020-06-17] MEDS: LEVOTHYROXINE 50 MCG TAB PO SCH (08:24)
[2020-06-17] MEDS: ENOXAPARIN 40 MG/0.4 ML SYRINGE SQ SCH (08:28)
[2020-06-17] MEDS: polyethylene glycoL 3350 17 GM POWD.PACK PO SCH (08:29)
[2020-06-17] MEDS: SYMBICORT 80-4.5 MCG INHALER INHALATION SCH ×2 (08:40→20:37)
[2020-06-17] MEDS: IPRATROPIUM 0.5 MG/2.5 ML NEBU INHALATION SCH ×4 (08:40→20:37)
[2020-06-17 11:55] LABS: Glucose,Whole Blood 116 mg/dL (75-99)
--- NOTE | 2020-06-17 12:35 | P.PN ---
Subjective Progress Note Date: 06/17/20 Principal diagnosis: Left lower lobe pneumonia A 74-year-old female patient presented to the hospital because of increased cough and shortness of breath of few days' duration. She was seen in the ED and x-ray was suspicion for pneumonia as the patient lower lobe infiltrate left more than right. The patient has multiple other comorbidities including hypertension and hyperlipidemia and hypothyroidism and COPD and diabetes mellitus which is [id number]. She has COPD and chronic alcohol abuse. She has also psychiatric history and she is demented on a combination of sick medication included risperidone Xanax and Wellbutrin. The patient had a white cell count of 15.5. Hemoglobin was at 10.9. Platelets of 266. Sodium was 126, bicarbonate up to 131. Serum bicarb is 25. BUN is 11 with a creatinine of 0.55. The patient also had a lactic acid level of 1.3. Calcium level is 9. CPK is at 1454 with a cecal dropped down to 806. Troponin was negative 1. Pr oBNP level is 435. The chest x-ray showed a left lower lobe pulmonary infiltrate on 06/15/2020. Subsequent chest x-rays was done on 06/16/2020 showed worsening in the left-sided pulmonary infiltrate with a development of an effusion. The patient is currently on DuoNeb neb regimen [id number]. The patient was given accommodation Rocephin and Zithromax. The patient was kept on Symbicort. Home medication been ordered resume. She is also on Lovenox for DVT prophylaxis.: The COVID 19 evaluation still pending for now. The history is quite limited as the patient has severe paranoia related to her underlying schizophrenia. On 06/17/2020 patient seen in follow-up on general medical surgical floor. She is in no acute distress, room air pulse ox is 90%, hemodynamically stable, has been afebrile during this admission. No cough or congestion, no compressive chest pain, or worsening dyspnea, blood culture has shown no growth since admission. No hemoptysis. Patient is on a combination of Zithromax and Rocephin. On sounds reveal inspiratory crackles over posterior left lung.COVID 19 was negative. IV fluids normal saline infusing at a rate of 1:30 ML per hour. Her last chest x-ray was done yesterday, showing worsening left-sided infiltrate with a concomitant effusion. Clinically patient is stable, we'll obtain follow-up chest x-ray in the morning, and continue current medical treatment Objective - Vital Signs Vital signs: Vital Signs Temp 97.8 F 06/17/20 07:00 Pulse 60 06/17/20 07:00 Resp 20 06/17/20 08:00 BP 134/72 06/17/20 07:00 Pulse Ox 90 L 06/17/20 07:00 Intake & Output 06/16/20 06/17/20 06/17/20 18:59 06:59 18:59 Intake Total 100 225 Output Total 1 Balance 99 225 Intake: Oral 100 225 Output: Urine 1 Other: # Voids 1 1 - Exam GENERAL EXAM: Alert, 74-year-old white female room air with a pulse ox of 90- 91% comfortable in no apparent distress. Patient insisted that her last name is Raymundo, and not Bruce, and her first name is Umu, not Sofía. Patient has underlying history of schizophrenia. HEAD: Normocephalic/atraumatic. EYES: Normal reaction of pupils, equal size. Conjunctiva pink, sclera white. NOSE: Clear with pink turbinates. THROAT: No erythema or exudates. NECK: No masses, no JVD, no thyroid enlargement, no adenopathy. CHEST: No chest wall deformity. Symmetrical expansion. LUNGS: Equal air entry with coarse inspiratory crackles over left mid to lower lung, posteriorly CVS: Regular rate and rhythm, normal S1 and S2, no gallops, no murmurs, no rubs ABDOMEN: Soft, nontender. No hepatosplenomegaly, normal bowel sounds, no guarding or rigidity. EXTREMITIES: No clubbing, no edema, no cyanosis, 2+ pulses and upper and lower extremities. MUSCULOSKELETAL: Muscle strength and tone normal. SPINE: No scoliosis or deformity SKIN: No rashes CENTRAL NERVOUS SYSTEM: Alert and oriented -3. No focal deficits, tone is normal in all 4 extremities. PSYCHIATRIC: Alert and oriented -3. Appropriate affect. Intact judgment and insight. - Labs CBC & Chem 7: 06/17/20 07:28 06/17/20 07:28 Labs: Abnormal Lab Results - Last 24 Hours (Table) 06/16/20 06/16/20 06/17/20 Range/Units 16:36 20:25 07:28 RBC 3.61 L (3.80-5.40) m/uL Hgb 10.7 L (11.4-16.0) gm/dL Hct 33.5 L (34.0-46.0) % Sodium (137-145) mmol/L BUN (7-17) mg/dL Creatinine (0.52-1.04) mg/dL Glucose (74-99) mg/dL POC Glucose (mg/dL) 116 H 109 H (75-99) mg/dL AST (14-36) U/L ALT (4-34) U/L Albumin (3.5-5.0) g/dL 06/17/20 06/17/20 Range/Units 07:28 11:45 RBC (3.80-5.40) m/uL Hgb (11.4-16.0) gm/dL Hct (34.0-46.0) % Sodium 132 L (137-145) mmol/L BUN 4 L (7-17) mg/dL Creatinine 0.40 L (0.52-1.04) mg/dL Glucose 114 H (74-99) mg/dL POC Glucose (mg/dL) 116 H (75-99) mg/dL AST 38 H (14-36) U/L ALT 36 H (4-34) U/L Albumin 3.2 L (3.5-5.0) g/dL Microbiology - Last 24 Hours (Table) 06/15/20 11:18 Blood Culture - Preliminary Blood No Growth after 24 hours Assessment and Plan Plan: Assessment: 1 left lower lobe pneumonia with a small left-sided pleural effusion. The patient a combination of Rocephin and Zithromax. There are coronavirus COVID 19 evaluation is still pending. COVID 19 was negative 2 acute hypoxic respiratory failure secondary to above 3 COPD maintained on Trelegy Ellipta 1 inhalation daily on an outpatient basis 4 [id number]-[id number] diabetes mellitus 5 hypertension 6 hyperlipidemia 7 hypothyroidism 8 schizophrenia with severe paranoid ideations. The patient's history is extremely limited due to her severe paranoia. 9 depression Plan: Continue current antibiotic treatment, COVID 19 was negative, patient has been afebrile, vital signs have been stable, we'll repeat chest x-ray in another 24 hours, we'll continue to follow I performed a history & physical examination of the patient and discussed their management with my nurse practitioner, Johanna Brantley. I reviewed the nurse practitioner's note and agree with the documented findings and plan of care. Lung sounds are positive for coarse inspiratory crackles over left lung. The findings and the impression was discussed with the patient. I attest to the documentation by the nurse practitioner. Time with Patient: Less than 30
[2020-06-17 17:16] LABS: Glucose,Whole Blood 108 mg/dL (75-99)
--- NOTE | 2020-06-17 17:54 | P.PN ---
Subjective Progress Note Date: 06/17/20 Sofía Leslie, is a 74-year-old female patient of Dr. Jacob, who presented to [facility] emergency room with a chief complaint of cough and shortness of breath for about 24 hours, patient was evaluated in the emergency room, her chest x-ray was suspicious for pneumonia, Covid 19 testing was done and is still pending, patient is a smoker, she lives in an assisted living facility. Patient has a known history of hypertension, hyperlipidemia, hypothyroidism , sxm-vljekzn-gnreivoch diabetes mellitus, COPD, and history of alcohol abuse, she has psychiatry care illness requiring the use of risperidone , Xanax , and Wellbutrin however patient is unable to give any significant details. On review of systems patient stated that she is feeling well, she is sitting up at the edge of the bed eating her meal, she stated that her cough and her shortness of breath has improved since admission, there is no fever or chills no headache or dizziness no chest pain no no nausea or vomiting no abdominal pain no diarrhea no blood in the stools, no burning with urination no frequency or urgency and no hematuria. On 06/17/2020 patient was seen and examined on the medical floor she is alert and oriented 3 in no apparent distress there is no fever or chills no headache or dizziness no chest pain no shortness of breath she has occasional cough no nausea or vomiting no abdominal pain no diarrhea no burning with urination no frequency or urgency and no hematuria Objective - Vital Signs Vital signs: Vital Signs Temp 97.9 F 06/17/20 15:00 Pulse 64 06/17/20 15:00 Resp 20 06/17/20 16:00 BP 163/78 06/17/20 15:00 Pulse Ox 94 L 06/17/20 15:00 Intake & Output 06/16/20 06/17/20 06/17/20 18:59 06:59 18:59 Intake Total 100 425 Output Total 1 Balance 99 425 Intake: Oral 100 425 Output: Urine 1 Other: # Voids 1 1 2 # Bowel Movements 1 - Exam In general patient is alert and oriented 3 in no apparent distress HEENT head normocephalic and atraumatic Neck is supple no JVD no goiter no lymphadenopathy Chest exam reveals coarse crackles in both lung conley no wheezing Cardiac exam reveals regular heart sounds no gallops no murmurs Abdomen is soft nontender no organomegaly with normal bowel sounds Extremity exam reveals no edema no cyanosis or clubbing Neurological examination reveals no gross focal deficit - Labs CBC & Chem 7: 06/17/20 07:28 06/17/20 07:28 Labs: Abnormal Lab Results - Last 24 Hours (Table) 06/16/20 06/17/20 06/17/20 Range/Units 20:25 07:28 07:28 RBC 3.61 L (3.80-5.40) m/uL Hgb 10.7 L (11.4-16.0) gm/dL Hct 33.5 L (34.0-46.0) % Sodium 132 L (137-145) mmol/L BUN 4 L (7-17) mg/dL Creatinine 0.40 L (0.52-1.04) mg/dL Glucose 114 H (74-99) mg/dL POC Glucose (mg/dL) 109 H (75-99) mg/dL AST 38 H (14-36) U/L ALT 36 H (4-34) U/L Albumin 3.2 L (3.5-5.0) g/dL 06/17/20 06/17/20 Range/Units 11:45 17:14 RBC (3.80-5.40) m/uL Hgb (11.4-16.0) gm/dL Hct (34.0-46.0) % Sodium (137-145) mmol/L BUN (7-17) mg/dL Creatinine (0.52-1.04) mg/dL Glucose (74-99) mg/dL POC Glucose (mg/dL) 116 H 108 H (75-99) mg/dL AST (14-36) U/L ALT (4-34) U/L Albumin (3.5-5.0) g/dL Microbiology - Last 24 Hours (Table) 06/15/20 11:18 Blood Culture - Preliminary Blood No Growth after 48 hours Assessment and Plan Plan: 1. Pneumonia, patient is admitted to medical floor she was started on IV Rocephin and Zithromax, Covid 19 testing is still pending, I will consult infectious disease and pulmonary at this time, continue current antibiotics 2. Underlying history of hypertension well-controlled on current medications continue 3. Underlying history of [id number]-mpwabtdwf diabetes mellitus maintained on metformin continue 4. Underlying history of hyperlipidemia maintained on simvastatin continue 5. History of mental illness, unable to qualify at this time patient was maintained on risperidone, Wellbutrin, and Xanax as outpatient will continue with current medication 6. Underlying history of hypothyroidism maintained on Synthroid continue 7. For DVT prophylaxis we will use Lovenox for GI prophylaxis Will use Protonix Will follow during this admission, Course will depend on clinical progress, sputum culture results, and Covid 19 testing results
[2020-06-17 20:48] LABS: Glucose,Whole Blood 93 mg/dL (75-99)
[2020-06-17] MEDS: ATORVASTATIN 10 MG TAB PO SCH (20:49)
[2020-06-17] MEDS: HYDROcodone/APAP 5-325MG 1 EACH TAB PO PRN (22:05)
--- NOTE | 2020-06-17 22:25 | PN ---
PROGRESS NOTE DATE OF SERVICE: 06/17/2020 REASON FOR FOLLOWUP: Pneumonia. INTERVAL HISTORY: The patient is currently afebrile. The patient is breathing comfortably. The patient mentions she is fine. Denies having any chest pain. Did have some cough but no sputum. No nausea, no vomiting. No abdominal pain or diarrhea. PHYSICAL EXAMINATION: Blood pressure 158/75 with a pulse of 64, temperature 98.2. She is 94% on room air. General description is an elderly female lying in bed in no distress. RESPIRATORY SYSTEM: Unlabored breathing with decreased breath sounds at the base. No wheeze. HEART: S1, S2. Regular rate and rhythm. ABDOMEN: Soft. No tenderness. LABS: Hemoglobin is 10.7, white count 6.9, BUN of 4, creatinine 0.40. DIAGNOSTIC IMPRESSION AND PLAN: Patient admitted to hospital with increased shortness of breath in this patient who did have a component of left lower lobe pneumonia, possibly community-acquired. The patient is covered with Rocephin and Zithromax; to continue and monitor clinical course closely. Continue supportive care. MMODL / IJN: [id number] /
[2020-06-18] MEDS: SODIUM CHLORIDE 0.9% 1,000 ML IV SCH ×2 (02:02→17:31)
[2020-06-18 06:45] LABS: Glucose,Whole Blood 86 mg/dL (75-99)
[2020-06-18] MEDS: INSULIN ASPART (NovoLOG) 100 UNIT/ML VIAL SQ SCH ×4 (07:21→22:14)
[2020-06-18] MEDS: SYMBICORT 80-4.5 MCG INHALER INHALATION SCH ×2 (07:30→18:56)
[2020-06-18] MEDS: IPRATROPIUM 0.5 MG/2.5 ML NEBU INHALATION SCH ×4 (07:31→18:56)
[2020-06-18 07:33] LABS: Basophils % (A) 1 %; Eosinophils # (A) 0.2 k/uL (0-0.7); Eosinophils % (A) 4 %; HCT 31.5 % (34.0-46.0); HGB 10.3 gm/dL (11.4-16.0); Lymphocytes # (A) 1.5 k/uL (1.0-4.8); Lymphocytes % (A) 30 %; MCH 30.2 pg (25.0-35.0); MCHC 32.7 g/dL (31.0-37.0); MCV 92.2 fL (80.0-100.0); Mean Platelet Volume 7.5; Monocytes # (A) 0.5 k/uL (0-1.0); Monocytes % (A) 9 %; Neutrophils # (A) 2.7 k/uL (1.3-7.7); Neutrophils % (A) 54 %; Platelet Count 326 k/uL (150-450); RBC 3.42 m/uL (3.80-5.40); RDW 15.1 % (11.5-15.5)
[2020-06-18 07:44] LABS: ALT 32 U/L (4-34); AST 29 U/L (14-36); African American GFR (CKD) >90 (>60 ml/min/1.73 sqM); Albumin 3.3 g/dL (3.5-5.0); Alkaline Phosphatase 62 U/L (38-126); Anion Gap 7 mmol/L; Blood Urea Nitrogen 5 mg/dL (7-17); Carbon Dioxide 26 mmol/L (22-30); Chloride 99 mmol/L (98-107); Glucose 81 mg/dL (74-99); Non-African American GFR(CKD) >90 (>60 ml/min/1.73 sqM); Potassium 4.2 mmol/L (3.5-5.1); Sodium 132 mmol/L (137-145); Total Bilirubin 0.6 mg/dL (0.2-1.3); Total Protein 6.6 g/dL (6.3-8.2)
[2020-06-18] MEDS: GABAPENTIN 300 MG CAP PO SCH ×3 (07:50→19:12)
[2020-06-18] MEDS: metFORMIN 500 MG TAB PO SCH ×2 (07:51→19:12)
[2020-06-18] MEDS: amLODIPine 5 MG TAB PO SCH (07:51)
[2020-06-18] MEDS: PANTOPRAZOLE 40 MG TABLET PO SCH (07:51)
[2020-06-18] MEDS: DOCUSATE 100 MG CAP PO SCH ×2 (07:51→19:12)
[2020-06-18] MEDS: BACLOFEN 10 MG TAB PO SCH ×2 (07:52→19:12)
[2020-06-18] MEDS: guaiFENesin SYRUP 100MG/5ML 200 MG/10 ML CUP PO SCH ×2 (07:52→19:12)
[2020-06-18] MEDS: polyethylene glycoL 3350 17 GM POWD.PACK PO SCH (07:52)
[2020-06-18] MEDS: LEVOTHYROXINE 50 MCG TAB PO SCH (07:52)
[2020-06-18] MEDS: ENOXAPARIN 40 MG/0.4 ML SYRINGE SQ SCH (07:53)
[2020-06-18] MEDS: buPROPion SR 150 MG TABLET.ER PO SCH ×2 (07:53→19:12)
[2020-06-18] MEDS: risperiDONE 0.5 MG TAB PO SCH ×2 (07:53→19:12)
[2020-06-18] MEDS: AZITHROMYCIN 500 MG TAB PO SCH (07:54)
[2020-06-18] MEDS: HYDROcodone/APAP 5-325MG 1 EACH TAB PO PRN ×2 (08:04→17:33)
--- NOTE | 2020-06-18 10:36 | XR ---
EXAMINATION TYPE: XR chest 1V portable DATE OF EXAM: 06/18/2020 COMPARISON: Chest radiograph 06/16/2020 HISTORY: Left lower lobe pneumonia TECHNIQUE: Single frontal portable view of the chest is obtained. FINDINGS: There is focal opacity of the left lung base and small left pleural effusion, unchanged fr om 06/16/2020. There is haziness at the right costophrenic angle which may represent atelectasis versu s tiny pleural effusion. Interstitial coarsening redemonstrated. No pneumothorax seen. The cardiac si lhouette size is within normal limits. IMPRESSION: 1. Unchanged left basilar airspace opacity and small left pleural effusion. 2. Hazy right costophrenic angle may represent atelectasis versus tiny pleural effusion.
[2020-06-18 11:26] LABS: Glucose,Whole Blood 79 mg/dL (75-99)
--- NOTE | 2020-06-18 12:21 | P.PN ---
Subjective Progress Note Date: 06/18/20 Principal diagnosis: Left lower lobe pneumonia A 74-year-old female patient presented to the hospital because of increased cough and shortness of breath of few days' duration. She was seen in the ED and x-ray was suspicion for pneumonia as the patient lower lobe infiltrate left more than right. The patient has multiple other comorbidities including hypertension and hyperlipidemia and hypothyroidism and COPD and diabetes mellitus which is [id number]-sounzxivn. She has COPD and chronic alcohol abuse. She has also psychiatric history and she is demented on a combination of sick medication included risperidone Xanax and Wellbutrin. The patient had a white cell count of 15.5. Hemoglobin was at 10.9. Platelets of 266. Sodium was 126, bicarbonate up to 131. Serum bicarb is 25. BUN is 11 with a creatinine of 0.55. The patient also had a lactic acid level of 1.3. Calcium level is 9. CPK is at 1454 with a cecal dropped down to 806. Troponin was negative 1. Pr oBNP level is 435. The chest x-ray showed a left lower lobe pulmonary infiltrate on 06/15/2020. Subsequent chest x-rays was done on 06/16/2020 showed worsening in the left-sided pulmonary infiltrate with a development of an effusion. The patient is currently on DuoNeb neb regimen [id number]. The patient was given accommodation Rocephin and Zithromax. The patient was kept on Symbicort. Home medication been ordered resume. She is also on Lovenox for DVT prophylaxis.: The COVID 19 evaluation still pending for now. The history is quite limited as the patient has severe paranoia related to her underlying schizophrenia. On 06/17/2020 patient seen in follow-up on general medical surgical floor. She is in no acute distress, room air pulse ox is 90%, hemodynamically stable, has been afebrile during this admission. No cough or congestion, no compressive chest pain, or worsening dyspnea, blood culture has shown no growth since admission. No hemoptysis. Patient is on a combination of Zithromax and Rocephin. On sounds reveal inspiratory crackles over posterior left lung.COVID 19 was negative. IV fluids normal saline infusing at a rate of 1:30 ML per hour. Her last chest x-ray was done yesterday, showing worsening left-sided infiltrate with a concomitant effusion. Clinically patient is stable, we'll obtain follow-up chest x-ray in the morning, and continue current medical treatment On 06/18/2020 patient seen in follow-up on general medical floor. She is sitt ing up in the recliner, she has her shoes on in her purse and she is stating that she is going home today. Room air pulse ox is 91-98%, hemodynamically patient is stable, she is afebrile, respirations are nonlabored, lung sounds reveal coarse inspiratory crackles over left mid to lower posterior lung. No cough, no congestion, no complaints of chest discomfort. Remains on azithromycin and Rocephin. Today's chest x-ray has been reviewed with Dr. Argueta, showing left basilar airspace opacity and small left pleural effusion, and hazy right costophrenic angle representing atelectasis versus tiny pleural effusion. Clinically patient has remained stable, And could be considered for discharge home today. Objective - Vital Signs Vital signs: Vital Signs Temp 98.3 F 06/18/20 07:00 Pulse 61 06/18/20 07:00 Resp 17 06/18/20 07:00 BP 145/76 06/18/20 07:00 Pulse Ox 91 L 06/18/20 07:00 Intake & Output 06/17/20 06/18/20 06/18/20 18:59 06:59 18:59 Intake Total 425 300 Balance 425 300 Intake: Oral 425 300 Other: Voiding Method Toilet # Voids 2 1 # Bowel Movements 1 - Exam GENERAL EXAM: Alert, 74-year-old white female room air with a pulse ox of 90- 91% comfortable in no apparent distress. Patient insisted that her last name is Raymundo, and not Bruce, and her first name is Umu, not Sofía. Patient has underlying history of schizophrenia. HEAD: Normocephalic/atraumatic. EYES: Normal reaction of pupils, equal size. Conjunctiva pink, sclera white. NOSE: Clear with pink turbinates. THROAT: No erythema or exudates. NECK: No masses, no JVD, no thyroid enlargement, no adenopathy. CHEST: No chest wall deformity. Symmetrical expansion. LUNGS: Equal air entry with coarse inspiratory crackles over left mid to lower lung, posteriorly CVS: Regular rate and rhythm, normal S1 and S2, no gallops, no murmurs, no rubs ABDOMEN: Soft, nontender. No hepatosplenomegaly, normal bowel sounds, no guarding or rigidity. EXTREMITIES: No clubbing, no edema, no cyanosis, 2+ pulses and upper and lower extremities. MUSCULOSKELETAL: Muscle strength and tone normal. SPINE: No scoliosis or deformity SKIN: No rashes CENTRAL NERVOUS SYSTEM: Alert and oriented -3. No focal deficits, tone is normal in all 4 extremities. PSYCHIATRIC: Alert and oriented -3. Appropriate affect. Intact judgment and insight. - Labs CBC & Chem 7: 06/18/20 06:47 06/18/20 06:47 Labs: Abnormal Lab Results - Last 24 Hours (Table) 06/17/20 06/18/20 06/18/20 Range/Units 17:14 06:47 06:47 RBC 3.42 L (3.80-5.40) m/uL Hgb 10.3 L (11.4-16.0) gm/dL Hct 31.5 L (34.0-46.0) % Sodium 132 L (137-145) mmol/L BUN 5 L (7-17) mg/dL Creatinine 0.43 L (0.52-1.04) mg/dL POC Glucose (mg/dL) 108 H (75-99) mg/dL Albumin 3.3 L (3.5-5.0) g/dL Microbiology - Last 24 Hours (Table) 06/15/20 11:18 Blood Culture - Preliminary Blood No Growth after 48 hours Assessment and Plan Plan: Assessment: 1 left lower lobe pneumonia with a small left-sided pleural effusion. The patient a combination of Rocephin and Zithromax. There are coronavirus COVID 19 evaluation is still pending. COVID 19 was negative 2 acute hypoxic respiratory failure secondary to above, resolved 3 COPD maintained on Trelegy Ellipta 1 inhalation daily on an outpatient basis 4 hks-lhxseve-vcwhuwutv diabetes mellitus 5 hypertension 6 hyperlipidemia 7 hypothyroidism 8 schizophrenia with severe paranoid ideations. The patient's history is extremely limited due to her severe paranoia. 9 depression Plan: Today's chest x-ray has been reviewed still showing left basilar airspace opacity and small left pleural effusion, clinically patient has remained stable, she is on room air, she is afebrile, breathing is comfortable, no complaints of chest pain, or worsening shortness of breath, no cough or congestion. She is determined to go home today, from pulmonary perspective patient is stable, and can be considered for discharge home with outpatient follow-up in the office with Dr. Argueta in 7-10 days and patient can complete oral course of antibiotics azithromycin and oral Ceftin. I performed a history & physical examination of the patient and discussed their management with my nurse practitioner, Johanna Brantley. I reviewed the nurse practitioner's note and agree with the documented findings and plan of care. Lung sounds are positive for coarse inspiratory crackles over left lung. The findings and the impression was discussed with the patient. I attest to the doc umentation by the nurse practitioner. Time with Patient: Less than 30
[2020-06-18 14:21] VITALS: RESP 16
--- NOTE | 2020-06-18 15:55 | PN ---
PROGRESS NOTE DATE OF SERVICE: 06/18/2020 REASON FOR FOLLOWUP: Pneumonia. INTERVAL HISTORY: The patient is currently afebrile. The patient is feeling better, breathing comfortably. The patient denies having any chest pain or shortness of breath. Occasional cough. No abdominal pain or diarrhea. PHYSICAL EXAMINATION: Her blood pressure is 145/76 with a pulse of 71, temperature 98.3. She is 91% on room air. General description is an elderly female up in the chair in no distress. RESPIRATORY SYSTEM: Unlabored breathing with decreased breath sounds at the base. No wheeze. HEART: S1, S2. Regular rate and rhythm. ABDOMEN: Soft. No tenderness. LABS: Hemoglobin is 10, white count of 5.0, BUN of 5, creatinine 0.43. Chest x-ray did not show any changes. DIAGNOSTIC IMPRESSION AND PLAN: Patient with left lower lobe pneumonia, possibly community-acquired, clinically responding to Rocephin and Zithromax; to continue. Finish therapy with oral Ceftin. Continue with supportive care. MMODL / IJN: [id number] /
[2020-06-18 17:25] LABS: Glucose,Whole Blood 129 mg/dL (75-99)
--- NOTE | 2020-06-18 18:03 | P.DS ---
Providers Date of admission: 06/15/20 13:22 Expected date of discharge: 06/18/20 Attending physician: Agnieszka Sanchez Consults: 06/16/20 12:43 Consult Physician Routine Consulting Provider: Trena Jarrell Consult Reason/Comments: pneumonia Do you want consulting provider notified?: Yes 06/16/20 12:44 Consult Physician Routine Consulting Provider: Jaquan Basurto Consult Reason/Comments: pneumonia Do you want consulting provider notified?: Yes Primary care physician: Aby Jacob Hospital Course: Diagnoses on discharge: 1. Pneumonia, patient is admitted to medical floor she was started on IV Rocephin and Zithromax, Covid 19 testing is still pending, I will consult infectious disease and pulmonary at this time, continue current antibiotics 2. Underlying history of hypertension well-controlled on current medications continue 3. Underlying history of yzb-yiurfxn-yciqqsdsg diabetes mellitus maintained on metformin continue 4. Underlying history of hyperlipidemia maintained on simvastatin continue 5. History of mental illness, unable to qualify at this time patient was maintained on risperidone, Wellbutrin, and Xanax as outpatient will continue with current medication 6. Underlying history of hypothyroidism maintained on Synthroid continue 7. For DVT prophylaxis we will use Lovenox for GI prophylaxis Will use Protonix Hospital course: Sofía Leslie, is a 74-year-old female patient of Dr. Jacob, who presented to [facility] emergency room with a chief complaint of cough and shortness of breath for about 24 hours, patient was evaluated in the emergency room, her chest x-ray was suspicious for pneumonia, Covid 19 testing was done and is still pending, patient is a smoker, she lives in an assisted living facility. Patient has a known history of hypertension, hyperlipidemia, hypothyroidism , gde-apgefnn-tewqgwqno diabetes mellitus, COPD, and history of alcohol abuse, she has psychiatry care illness requiring the use of risperidone , Xanax , and Wellbutrin however patient is unable to give any significant details. On review of systems patient stated that she is feeling well, she is sitting up at the edge of the bed eating her meal, she stated that her cough and her shortness of breath has improved since admission, there is no fever or chills no headache or dizziness no chest pain no no nausea or vomiting no abdominal pain no diarrhea no blood in the stools, no burning with urination no frequency or urgency and no hematuria. On 06/17/2020 patient was seen and examined on the medical floor she is alert and oriented 3 in no apparent distress there is no fever or chills no headache or dizziness no chest pain no shortness of breath she has occasional cough no nausea or vomiting no abdominal pain no diarrhea no burning with urination no frequency or urgency and no hematuria On 06/18/2020 patient was seen and examined on the medical floor she is alert and oriented 3 in no apparent distress she is still having cough otherwise she denies any complaints there is no fever or chills no headache or dizzinessno chest pain no shortness of breath no nausea or vomiting no abdominal pain no diarrhea no blood in the stools no burning was urination no frequency or urgency no hematuria. Chest x-ray has worsened slightly since admission, however patient is insisting on going home today I spent considerable amount of time trying to convince her to stay in the hospital longer on IV antibiotic however patient refused adamantly. At this time she will be given a prescription for Ceftin 500 mg twice daily for 10 days and Zithromax 500 mg by mouth daily for 7 days she was instructed to return to the hospital if her condition worsens or if she developed shortness of breath., Or fever. Patient was and able to give a sputum sample for culture during this admission. Patient Condition at Discharge: Fair Plan - Discharge Summary Discharge Rx Participant: Yes New Discharge Prescriptions: New Cefuroxime Axetil [Ceftin] 500 mg PO BID 10 Days #20 tab Azithromycin [Zithromax] 500 mg PO DAILY 7 Days #7 tab Continue Mupirocin 2% Oint [Bactroban 2% Oint] 1 applic TOPICAL TID PRN PRN Reason: SKIN LESIONS/INFECTION Meclizine HCl 25 mg PO BID PRN PRN Reason: DIZZINESS Magnesium Hydroxide [Milk of Magnesia] 2,400 mg PO DAILY PRN PRN Reason: Constipation Ipratropium-Albuterol Nebulize [Duoneb 0.5 mg-3 mg/3 ml Soln] 3 ml INHALATION RT-QID PRN PRN Reason: Shortness Of Breath Furosemide [Lasix] 20 mg PO DAILY PRN PRN Reason: LEG SWELLING Carbamide Peroxide [Debrox Otic] 6 drops BOTH EARS DAILY PRN PRN Reason: earwax buildup Betamethasone Dipropionate [Diprolene AF 0.05% Cream] 1 applic TOPICAL BID PRN PRN Reason: Rash Fluticasone/Umeclidin/Vilanter [Trelegy Ellipta 100-62.5-25] 1 puff INHALATION RT-DAILY@1999 ALPRAZolam [Xanax] 0.25 mg PO TID PRN PRN Reason: Anxiety risperiDONE 1.5 mg PO BID@08,1999 Simvastatin [Zocor] 20 mg PO DAILY@1999 amLODIPine [Norvasc] 5 mg PO DAILY@08 Gabapentin [Neurontin] 300 mg PO TID@0800,1299,1999 Polyethylene Glycol 3350 [Miralax] 17 gm PO DAILY@0800 Levothyroxine Sodium [Synthroid] 50 mcg PO DAILY@08 metFORMIN HCL ER [Glucophage Xr] 500 mg PO DAILY@1999 guaiFENesin [guaiFENesin Oral Solution] 200 mg PO BID@799,1999 buPROPion HCL [Wellbutrin SR] 150 mg PO BID@799,1999 Docusate [Colace] 100 mg PO BID@799,1999 Vitamin B Complex 1 tab PO DAILY@0800 Baclofen 10 mg PO BID@799,1999 Discharge Medication List ALPRAZolam [Xanax] 0.25 mg PO TID PRN 06/15/20 [History] Baclofen 10 mg PO BID@799,199906/15/20 [History] Betamethasone Dipropionate [Diprolene AF 0.05% Cream] 1 applic TOPICAL BID PRN 06/15/20 [History] Carbamide Peroxide [Debrox Otic] 6 drops BOTH EARS DAILY PRN 06/15/20 [History] Docusate [Colace] 100 mg PO BID@799,199906/15/20 [History] Fluticasone/Umeclidin/Vilanter [Trelegy Ellipta 100-62.5-25] 1 puff INHALATION RT-DAILY@199906/15/20 [History] Furosemide [Lasix] 20 mg PO DAILY PRN 06/15/20 [History] Gabapentin [Neurontin] 300 mg PO TID@0800,1300,199906/15/20 [History] Ipratropium-Albuterol Nebulize [Duoneb 0.5 mg-3 mg/3 ml Soln] 3 ml INHALATION RT-QID PRN 06/15/20 [History] Levothyroxine Sodium [Synthroid] 50 mcg PO DAILY@79906/15/20 [History] Magnesium Hydroxide [Milk of Magnesia] 2,400 mg PO DAILY PRN 06/15/20 [History] Meclizine HCl 25 mg PO BID PRN 06/15/20 [History] Mupirocin 2% Oint [Bactroban 2% Oint] 1 applic TOPICAL TID PRN 06/15/20 [History] Polyethylene Glycol 3350 [Miralax] 17 gm PO DAILY@79906/15/20 [History] Simvastatin [Zocor] 20 mg PO DAILY@199906/15/20 [History] Vitamin B Complex 1 tab PO DAILY@79906/15/20 [History] amLODIPine [Norvasc] 5 mg PO DAILY@79906/15/20 [History] buPROPion HCL [Wellbutrin SR] 150 mg PO BID@08,199906/15/20 [History] guaiFENesin [guaiFENesin Oral Solution] 200 mg PO BID@08,199906/15/20 [History] metFORMIN HCL ER [Glucophage Xr] 500 mg PO DAILY@199906/15/20 [History] risperiDONE 1.5 mg PO BID@799,199906/15/20 [History] Azithromycin [Zithromax] 500 mg PO DAILY 7 Days #7 tab 06/18/20 [Rx] Cefuroxime Axetil [Ceftin] 500 mg PO BID 10 Days #20 tab 06/18/20 [Rx] Follow up Appointment(s)/Referral(s): None,Stated [REFERRING] - 1-2 days
[2020-06-18] MEDS: ATORVASTATIN 10 MG TAB PO SCH (19:12)
[2020-06-18 20:34] LABS: Glucose,Whole Blood 98 mg/dL (75-99)
[2020-06-18 21:00] VITALS: BP 166/76; PULSE 67; TEMP 98
== END 2020-06-18 21:40 | disposition home or self-care (01) | DRG 193 ==
LOC: EEVIPCON 10:45 → EC 10:45 → 4SSUR 13:22
PROVIDERS: ADMIT Internal Medicine; ATTEND Internal Medicine
DX: J18.9 Pneumonia, unspecified organism (principal); J96.01 Acute respiratory failure with hypoxia; E87.1 Hypo-osmolality and hyponatremia; J44.0 Chronic obstructive pulmonary disease with (acute) lower respiratory infection; M62.82 Rhabdomyolysis; J98.11 Atelectasis; F03.90 Unspecified dementia, unspecified severity, without behavioral disturbance, psychotic disturbance, mood disturbance, and anxiety; E03.9 Hypothyroidism, unspecified; E11.9 Type 2 diabetes mellitus without complications; E78.5 Hyperlipidemia, unspecified; E86.0 Dehydration; F17.200 Nicotine dependence, unspecified, uncomplicated; F20.9 Schizophrenia, unspecified; F32.9 Major depressive disorder, single episode, unspecified; F60.0 Paranoid personality disorder; I10 Essential (primary) hypertension; Z20.828 Contact with and (suspected) exposure to other viral communicable diseases; Z79.84 Long term (current) use of oral hypoglycemic drugs; Z79.890 Hormone replacement therapy; Z79.899 Other long term (current) drug therapy
CPT/HCPCS: 36415; 71045; 71046; 80048; 80053; 82550; 83605; 83735; 83880; 84145; 84484; 85025; 85027; 85610; 85730; 87040; 93005; 94640; 99285

== ENCOUNTER 2020-10-21 08:57 | Inpatient (IN) | payer MEDICARE, BC ==
[2020-10-21 09:21] LABS: Glucose,Whole Blood 118 mg/dL (75-99)
--- NOTE | 2020-10-21 09:27 | ED ---
Weakness HPI - General Source: patient, EMS Mode of arrival: EMS Limitations: no limitations <Rosalina Ceballos - Last Filed: 10/21/20 09:23> <Ezio Traceyssargentina Shaffer - Last Filed: 10/21/20 12:53> - General Chief complaint: Weakness Stated complaint: weakness Time Seen by Provider: 10/21/20 09:07 - History of Present Illness Initial comments: Dictation was produced using [employer] dictation software. please excuse any grammatical, word or spelling errors. This patient was cared for during a federal and state declared state of emergency secondary to Covid 19 Chief Complaint: 74-year-old female brought to the emergency department for altered mental status. History of Present Illness: A 74-year-old female she is brought in today for to the emergency department for altered mental status upon waking. Patient is a poor historian. EMS is not here for history of present illness. According to nursing staff patient was seen at the bedside sitting on the bed when she seemed to be a little more altered more than usual. Patient unable to provide detailed history of present illness. It is unclear what is patient's normal baseline mental status is. Patient allegedly has history of bipolar disorder. There is concern about slurred speech. Patient also did suffer a fall. It is unclear whether patient symptoms started. Unable to obtain secondary to patient's mental status. PHYSICAL EXAM: General Impression: Alert oriented x3, not in acute distress HEENT: Small hematoma over the occiput, no bleeding extra-ocular movements intact, pupils equal and reactive to light bilaterally, mucous membranes moist. Cardiovascular: Heart regular rate and rhythm Chest: Able to complete full sentences, no retractions, no tachypnea Abdomen: abdomen soft, non-tender, non-distended, no organomegaly Musculoskeletal: Pulses present and equal in all extremities, no peripheral edema Motor: no focal deficits noted Neurological: Slurred speech, no facial asymmetry with smiling, pupils 3 mm reactive to light, with answering questions, 3 minus weakness to all the extremities, non-aphasic, and NIH is 14 slurred speech ED course: 74-year-old female past history of psychiatric disease presents from [facility] home for concerns of stroke like symptoms and fall. As upon arrival are within acceptable limits. Patient is presents today with her daily medications. MAR from [facility] was reviewed. She does have an advanced directive that shows no CPR, no cardiac medication, no pressors and no shocks. Also no intubations and no ventilators. Laboratory evaluation obtained. Leukocytosis, 26.8. Patient does not have leukocytosis at baseline. Neutrophils 25.9. Coag panel is unremarkable. Metabolic panel shows sodium 125, potassium 6.0 with slight hemolysis. Rest metabolic panel is unremarkable.. Patient is a poor historian is unclear with patient having localizing symptoms. Computed tomography scan of the brain shows no acute processes. CT C-spine shows no acute processes. CT angiogram of the head and neck shows 80% diameter reduction at the left internal carotid artery, 50% stenosis involving the right internal carotid artery. Also left upper lobe infiltrate possible pneumonia. Chest x-ray should just increasing lung infiltrate. Case was discussed with Dr. Sanchez was willing to accept patients care. He requested neurology be consulted and patient be given antibiotics. Patient given azithromycin and ceftriaxone. EKG interpretation: Ventricular rate 73, normal sinus rhythm. QRS 96, QTC 425. No IA prolongation, no QTC prolongation, no ST or T-wave changes noted. I disagree with computer EKG interpretation.. Overall, this EKG is unremarkable (Steve Tracey) - Related Data Home Medications Medication Instructions Recorded Confirmed ALPRAZolam [Xanax] 0.25 mg PO TID PRN 06/15/20 10/21/20 Baclofen 10 mg PO BID@0800,199906/15/20 10/21/20 Betamethasone Dipropionate 1 applic TOPICAL BID PRN 06/15/20 10/21/20 [Diprolene AF 0.05% Cream] Carbamide Peroxide [Debrox Otic] 6 drops BOTH EARS DAILY PRN 06/15/20 10/21/20 Docusate [Colace] 100 mg PO BID@0800,199906/15/20 10/21/20 Fluticasone/Umeclidin/Vilanter 1 puff INHALATION RT-DAILY@199906/15/20 10/21/20 [Trelegy Ellipta 100-62.5-25] Furosemide [Lasix] 20 mg PO DAILY PRN 06/15/20 10/21/20 Gabapentin [Neurontin] 300 mg PO TID@0800,1300,199906/15/20 10/21/20 Ipratropium-Albuterol Nebulize 3 ml INHALATION RT-QID PRN 06/15/20 10/21/20 [Duoneb 0.5 mg-3 mg/3 ml Soln] Levothyroxine Sodium [Synthroid] 50 mcg PO DAILY@0800 06/15/20 10/21/20 Magnesium Hydroxide [Milk of 2,400 mg PO DAILY PRN 06/15/20 10/21/20 Magnesia] Meclizine HCl 25 mg PO BID PRN 06/15/20 10/21/20 Mupirocin 2% Oint [Bactroban 2% 1 applic TOPICAL TID PRN 06/15/20 10/21/20 Oint] Simvastatin [Zocor] 20 mg PO DAILY@199906/15/20 10/21/20 Vitamin B Complex 1 tab PO DAILY@0800 06/15/20 10/21/20 amLODIPine [Norvasc] 5 mg PO DAILY@0800 06/15/20 10/21/20 buPROPion HCL [Wellbutrin SR] 150 mg PO BID@0800,199906/15/20 10/21/20 guaiFENesin [guaiFENesin Oral 200 mg PO BID@0800,199906/15/20 10/21/20 Solution] metFORMIN HCL ER [Glucophage Xr] 500 mg PO HS@199906/15/20 10/21/20 polyethylene glycoL 3350 [Miralax] 17 gm PO DAILY@0800 06/15/20 10/21/20 risperiDONE 1.5 mg PO BID@0800,199906/15/20 10/21/20 Acetaminophen Tab [Tylenol Tab] 500 - 1,000 mg PO Q8H PRN 10/21/20 10/21/20 Azithromycin [Zithromax] See Taper PO DAILY@0800 10/21/20 10/21/20 Theraworx Relief 1 pump TOPICAL BID PRN 10/21/20 10/21/20 Allergies Allergy/AdvReac Type Severity Reaction Status Date / Time No Known Allergies Allergy Verified 10/21/20 09:00 Review of Systems ROS Other: All systems not noted in ROS Statement are negative. <Rosalina Ceballos - Last Filed: 10/21/20 09:23> ROS Other: All systems not noted in ROS Statement are negative. <Steve Tracey - Last Filed: 10/21/20 12:53> ROS Statement: Those systems with pertinent positive or pertinent negative responses have been documented in the HPI. Past Medical History Past Medical History: COPD, Diabetes Mellitus, Hypertension, Thyroid Disorder History of Any Multi-Drug Resistant Organisms: None Reported Past Surgical History: Unable to Obtain Past Anesthesia/Blood Transfusion Reactions: No Reported Reaction Past Psychological History: Depression, Schizophrenia Smoking Status: Current every day smoker Past Alcohol Use History: None Reported, Abuse Past Drug Use History: None Reported <Rosalina Ceballos L - Last Filed: 10/21/20 09:23> General Exam Limitations: no limitations <Rosalina Ceballos L - Last Filed: 10/21/20 09:23> Course Vital Signs 10/21/20 10/21/20 10/21/20 08:58 09:03 09:15 Temperature 97.9 F 98.0 F Pulse Rate 75 75 Respiratory 18 18 Rate Blood Pressure 111/55 110/63 O2 Sat by Pulse 95 83 L 95 Oximetry 10/21/20 10/21/20 10/21/20 09:30 09:45 10:00 Temperature 98.0 F 97.9 F 98.0 F Pulse Rate 67 67 66 Respiratory 18 18 18 Rate Blood Pressure 118/55 120/56 120/56 O2 Sat by Pulse 97 96 94 L Oximetry 10/21/20 10/21/20 10/21/20 10:30 11:00 11:30 Temperature Pulse Rate 71 71 Respiratory 13 18 18 Rate Blood Pressure 116/52 112/51 115/54 O2 Sat by Pulse 91 L 85 L 90 L Oximetry 10/21/20 10/21/20 12:00 12:30 Temperature Pulse Rate 70 70 Respiratory 19 17 Rate Blood Pressure 110/67 119/63 O2 Sat by Pulse 92 L 89 L Oximetry Medical Decision Making - Lab Data Result diagrams: 10/21/20 09:21 10/21/20 09:21 <Steve Tracey - Last Filed: 10/21/20 12:53> - Lab Data Lab Results 10/21/20 10/21/20 10/21/20 Range/Units 09:20 09:21 09:21 WBC 26.8 H (3.8-10.6) k/uL RBC 3.88 (3.80-5.40) m/uL Hgb 11.2 L (11.4-16.0) gm/dL Hct 35.8 (34.0-46.0) % MCV 92.3 (80.0-100.0) fL MCH 29.0 (25.0-35.0) pg MCHC 31.4 (31.0-37.0) g/dL RDW 15.8 H (11.5-15.5) % Plt Count 307 (150-450) k/uL MPV 8.3 Neutrophils % (Manual) 91 % Band Neuts % (Manual) 6 % Lymphocytes % (Manual) 3 % Monocytes % (Manual) 2 % Neutrophils # (Manual) 25.90 H (1.3-7.7) k/uL Lymphocytes # (Manual) 0.80 L (1.0-4.8) k/uL Monocytes # (Manual) 0.54 (0-1.0) k/uL Nucleated RBCs 0 (0-0) /100 WBC Manual Slide Review Performed PT 9.8 (9.0-12.0) sec INR 0.9 (<1.2) APTT 24.8 (22.0-30.0) sec Sodium (137-145) mmol/L Potassium (3.5-5.1) mmol/L Chloride (98-107) mmol/L Carbon Dioxide (22-30) mmol/L Anion Gap mmol/L BUN (7-17) mg/dL Creatinine (0.52-1.04) mg/dL Est GFR (CKD-EPI)AfAm (>60 ml/min/1.73 sqM) Est GFR (CKD-EPI)NonAf (>60 ml/min/1.73 sqM) Glucose (74-99) mg/dL POC Glucose (mg/dL) 118 H (75-99) mg/dL POC Glu Senior Network Engineer ID Ariella Ward Plasma Lactic Acid Hsawn (0.7-2.0) mmol/L Calcium (8.4-10.2) mg/dL Phosphorus (2.5-4.5) mg/dL Magnesium (1.6-2.3) mg/dL Total Bilirubin (0.2-1.3) mg/dL AST (14-36) U/L ALT (4-34) U/L Alkaline Phosphatase (38-126) U/L Troponin I (0.000-0.034) ng/mL NT-Pro-B Natriuret Pep pg/mL Total Protein (6.3-8.2) g/dL Albumin (3.5-5.0) g/dL Urine Color Urine Appearance (Clear) Urine pH (5.0-8.0) Ur Specific [place] (1.001-1.035) Urine Protein (Negative) Urine Glucose (UA) (Negative) Urine Ketones (Negative) Urine Blood (Negative) Urine Nitrite (Negative) Urine Bilirubin (Negative) Urine Urobilinogen (<2.0) mg/dL Ur Leukocyte Esterase (Negative) Urine RBC (0-5) /hpf Urine WBC (0-5) /hpf Urine WBC Clumps (None) /hpf Ur Squamous Epith Cells (0-4) /hpf Urine Mucus (None) /hpf 10/21/20 10/21/20 10/21/20 Range/Units 09:21 09:21 09:21 WBC (3.8-10.6) k/uL RBC (3.80-5.40) m/uL Hgb (11.4-16.0) gm/dL Hct (34.0-46.0) % MCV (80.0-100.0) fL MCH (25.0-35.0) pg MCHC (31.0-37.0) g/dL RDW (11.5-15.5) % Plt Count (150-450) k/uL MPV Neutrophils % (Manual) % Band Neuts % (Manual) % Lymphocytes % (Manual) % Monocytes % (Manual) % Neutrophils # (Manual) (1.3-7.7) k/uL Lymphocytes # (Manual) (1.0-4.8) k/uL Monocytes # (Manual) (0-1.0) k/uL Nucleated RBCs (0-0) /100 WBC Manual Slide Review PT (9.0-12.0) sec INR (<1.2) APTT (22.0-30.0) sec Sodium 125 L (137-145) mmol/L Potassium 6.0 H (3.5-5.1) mmol/L Chloride 95 L (98-107) mmol/L Carbon Dioxide 24 (22-30) mmol/L Anion Gap 6 mmol/L BUN 16 (7-17) mg/dL Creatinine 0.97 (0.52-1.04) mg/dL Est GFR (CKD-EPI)AfAm 66 (>60 ml/min/1.73 sqM) Est GFR (CKD-EPI)NonAf 58 (>60 ml/min/1.73 sqM) Glucose 114 H (74-99) mg/dL POC Glucose (mg/dL) (75-99) mg/dL POC Glu Senior Network Engineer ID Plasma Lactic Acid Shawn 1.8 (0.7-2.0) mmol/L Calcium 9.0 (8.4-10.2) mg/dL Phosphorus 3.7 (2.5-4.5) mg/dL Magnesium 1.6 (1.6-2.3) mg/dL Total Bilirubin 0.7 (0.2-1.3) mg/dL AST 101 H (14-36) U/L ALT 28 (4-34) U/L Alkaline Phosphatase 60 (38-126) U/L Troponin I <0.012 (0.000-0.034) ng/mL NT-Pro-B Natriuret Pep pg/mL Total Protein 7.2 (6.3-8.2) g/dL Albumin 3.3 L (3.5-5.0) g/dL Urine Color Urine Appearance (Clear) Urine pH (5.0-8.0) Ur Specific [place] (1.001-1.035) Urine Protein (Negative) Urine Glucose (UA) (Negative) Urine Ketones (Negative) Urine Blood (Negative) Urine Nitrite (Negative) Urine Bilirubin (Negative) Urine Urobilinogen (<2.0) mg/dL Ur Leukocyte Esterase (Negative) Urine RBC (0-5) /hpf Urine WBC (0-5) /hpf Urine WBC Clumps (None) /hpf Ur Squamous Epith Cells (0-4) /hpf Urine Mucus (None) /hpf 10/21/20 10/21/20 Range/Units 09:21 12:00 WBC (3.8-10.6) k/uL RBC (3.80-5.40) m/uL Hgb (11.4-16.0) gm/dL Hct (34.0-46.0) % MCV (80.0-100.0) fL MCH (25.0-35.0) pg MCHC (31.0-37.0) g/dL RDW (11.5-15.5) % Plt Count (150-450) k/uL MPV Neutrophils % (Manual) % Band Neuts % (Manual) % Lymphocytes % (Manual) % Monocytes % (Manual) % Neutrophils # (Manual) (1.3-7.7) k/uL Lymphocytes # (Manual) (1.0-4.8) k/uL Monocytes # (Manual) (0-1.0) k/uL Nucleated RBCs (0-0) /100 WBC Manual Slide Review PT (9.0-12.0) sec INR (<1.2) APTT (22.0-30.0) sec Sodium (137-145) mmol/L Potassium (3.5-5.1) mmol/L Chloride (98-107) mmol/L Carbon Dioxide (22-30) mmol/L Anion Gap mmol/L BUN (7-17) mg/dL Creatinine (0.52-1.04) mg/dL Est GFR (CKD-EPI)AfAm (>60 ml/min/1.73 sqM) Est GFR (CKD-EPI)NonAf (>60 ml/min/1.73 sqM) Glucose (74-99) mg/dL POC Glucose (mg/dL) (75-99) mg/dL POC Glu Senior Network Engineer ID Plasma Lactic Acid Shawn (0.7-2.0) mmol/L Calcium (8.4-10.2) mg/dL Phosphorus (2.5-4.5) mg/dL Magnesium (1.6-2.3) mg/dL Total Bilirubin (0.2-1.3) mg/dL AST (14-36) U/L ALT (4-34) U/L Alkaline Phosphatase (38-126) U/L Troponin I (0.000-0.034) ng/mL NT-Pro-B Natriuret Pep 592 pg/mL Total Protein (6.3-8.2) g/dL Albumin (3.5-5.0) g/dL Urine Color Yellow Urine Appearance Turbid H (Clear) Urine pH 6.5 (5.0-8.0) Ur Specific [place] 1.046 H (1.001-1.035) Urine Protein 1+ H (Negative) Urine Glucose (UA) Negative (Negative) Urine Ketones Negative (Negative) Urine Blood Large H (Negative) Urine Nitrite Negative (Negative) Urine Bilirubin Negative (Negative) Urine Urobilinogen <2.0 (<2.0) mg/dL Ur Leukocyte Esterase Large H (Negative) Urine RBC 49 H (0-5) /hpf Urine WBC >182 H (0-5) /hpf Urine WBC Clumps Many H (None) /hpf Ur Squamous Epith Cells 3 (0-4) /hpf Urine Mucus Occasional H (None) /hpf Disposition <Rosalina Ceballos - Last Filed: 10/21/20 09:23> Decision Time: 12:53 <Steve Tracey - Last Filed: 10/21/20 12:53> Clinical Impression: Slurred speech, Pneumonia, UTI (urinary tract infection) Disposition: ADMITTED IP TO THIS HOSP Condition: Fair Referrals: Aby Jacob MD [Primary Care Provider] - 1-2 days
--- NOTE | 2020-10-21 09:40 | CT ---
EXAMINATION TYPE: CT brain yael palafox DATE OF EXAM: 10/21/2020 COMPARISON: None HISTORY: Neuro deficit CT DLP: 1233.[address] of the brain was performed. The ventricles, basal cisterns and sulci overlying the cerebral convexities demonstrate mild enlargem ent. There is no evidence for intracranial hemorrhage or sulcal effacement. There is decreased attenuatio n about the periventricular white matter and deep white matter of both cerebral hemispheres, compatib le with chronic small vessel ischemia. No mass effects are seen. If symptoms persist consider MRI. Osseous calvarium is intact. IMPRESSION: 1. Age related atrophic and chronic small vessel ischemic change without acute intracranial process seen at this time. CT Cervical Spine: Unenhanced CT of the cervical spine was performed with bone and soft tissue window settings submitted . Coronal and sagittal reconstruction is obtained. There is normal alignment and prevertebral soft tissues. No evidence for acute cervical fracture . Scattered degenerative disc disease and spondylosis. Biapical scarring. IMPRESSION: 1. No evidence for acute fracture or subluxation of the cervical spine.
[2020-10-21 09:54] LABS: INR 0.9 (<1.2)
[2020-10-21 09:55] LABS: Partial Thromboplastin Time 24.8 sec (22.0-30.0); Prothrombin Time 9.8 sec (9.0-12.0)
[2020-10-21 09:58] LABS: Total Bilirubin 0.7 mg/dL (0.2-1.3)
--- NOTE | 2020-10-21 10:13 | CT ---
EXAMINATION TYPE: CT angio head neck DATE OF EXAM: 10/21/2020 COMPARISON: None HISTORY: Weakness CT DLP: 392.6 mGycm CONTRAST: Performed with IV Contrast, patient injected with 65 mL of Isovue 370. Combination Contrast CTA cervical carotids and [place] CTA cervical carotids with 3-D recons truction Contrast CTA of the cervical carotids was performed 3-D reconstruction imaging obtained at a separate workstation. Right carotid system: Mild plaque is seen of the right common carotid artery. There is moderate plaq ue also noted at the carotid bulb and proximal ICA. Estimated diameter reduction of 50 percent. ECA is patent. Right vertebral artery appears unremarkable. Left carotid system: Mild plaque is seen of the left common carotid artery. There is moderate to sev ere plaque also noted at the carotid bulb and proximal ICA. Estimated diameter reduction of greater than 80% left ICA.ECA is patent. Right vertebral artery appears unremarkable. IMPRESSION: 1. Estimated diameter reduction is estimated at 80% on the left internal carotid artery. 50% stenosis involving the right internal carotid artery. 2. Left upper lobe infiltrate. Correlate for pneumonia. CTA [place] with 3-D reconstruction Contrast CTA of the [place] was performed 3-D reconstruction imaging obtained at a separate workstation. Vertebrobasilar system as well as intracranial portions of the internal carotid arteries and their ma demetrius tributaries are patent. I do not see evidence for sizable aneurysm or vascular malformation. Pl ease note MRI provides greater sensitivity and specificity. Visualized brain appears grossly unremar kable. IMPRESSION: 1. No significant abnormality.
[2020-10-21 10:16] LABS: Albumin 3.3 g/dL (3.5-5.0); Magnesium 1.6 mg/dL (1.6-2.3); Phosphorus 3.7 mg/dL (2.5-4.5); Total Protein 7.2 g/dL (6.3-8.2)
[2020-10-21 10:17] LABS: HCT 35.8 % (34.0-46.0); HGB 11.2 gm/dL (11.4-16.0); MCHC 31.4 g/dL (31.0-37.0); MCV 92.3 fL (80.0-100.0); Mean Platelet Volume 8.3; Platelet Count 307 k/uL (150-450); RBC 3.88 m/uL (3.80-5.40); RDW 15.8 % (11.5-15.5); WBC 26.8 k/uL (3.8-10.6)
--- NOTE | 2020-10-21 10:34 | XR ---
EXAMINATION TYPE: XR chest 2V DATE OF EXAM: 10/21/2020 COMPARISON: 06/18/2020 INDICATION: Weakness TECHNIQUE: Frontal and lateral views of the chest are obtained. FINDINGS: The heart size is normal. The pulmonary vasculature is normal. There is a patchy trachea on the left side. This is increasing from comparison. Consider atypical pne umonia.. IMPRESSION: 1. Increasing left lung infiltrate. Continued follow-up is recommended.
[2020-10-21 10:44] LABS: Band Neutrophils % 6 %; Monocytes # (M) 0.54 k/uL (0-1.0); Neutrophils % (M) 91 %; Nucleated Red Blood Cells 0 /100 WBC (0-0); Total Cells Counted 200
[2020-10-21] MEDS ORDERED: SODIUM CHLORIDE 0.9% 1,000 ML IV STA (12:12)
[2020-10-21] MEDS ORDERED: AZITHROMYCIN 500 MG in SODIUM CHLORIDE 0.9% 250 ML IVPB STA (12:18)
[2020-10-21 12:43] LABS: Appearance,Urine Turbid (Clear); Bilirubin,Urine Negative (Negative); Blood,Urine Large (Negative); Color,Urine Yellow; Glucose,Urine (UA) Negative (Negative); Ketones,Urine Negative (Negative); Leukocyte Esterase,Urine Large (Negative); Mucus,Urine Occasional /hpf; Nitrite,Urine Negative (Negative); PH, Urine 6.5 (5.0-8.0); Protein,Urine 1+ (Negative); RBC,Urine 49 /hpf (0-5); Squamous Epithelial Cell,Urine 3 /hpf (0-4); Urobilinogen,Urine <2.0 mg/dL (<2.0); WBC,Urine >182 /hpf (0-5)
[2020-10-21 12:44] LABS: Specific Gravity,Urine 1.046 (1.001-1.035)
[2020-10-21] MEDS ORDERED: cefTRIAXone IN SWFI 1,000 MG/10 ML SYRINGE IVP STA (12:44)
[2020-10-21] MEDS ORDERED: ONDANSETRON 4 MG/2 ML VIAL IVP PRN (12:51)
[2020-10-21] MEDS ORDERED: NALOXONE 0.4 MG/ML 1 ML VIAL IV PRN (12:51)
[2020-10-21] MEDS ORDERED: ASPIRIN 81 MG PO STA (12:52)
[2020-10-21] MEDS ORDERED: MORPHINE SULFATE 4 MG/ML SYRINGE IVP STA (13:01)
[2020-10-21] MEDS: SODIUM CHLORIDE 0.9% 1,000 ML IV SCH (13:10)
[2020-10-22] MEDS: SODIUM CHLORIDE 0.9% 1,000 ML IV SCH ×3 (02:34→20:18)
[2020-10-22] MEDS ORDERED: MUPIROCIN 2% OINT 22 GM TUBE TOPICAL PRN (09:52)
[2020-10-22] MEDS ORDERED: [UNRECOGNIZED DRUG - OTHER] TOPICAL PRN (09:52)
[2020-10-22] MEDS ORDERED: BETAMETHASONE DIPROPIONATE 0.05% CREAM 15 GM TUBE TOPICAL PRN (09:52)
[2020-10-22] MEDS ORDERED: FUROSEMIDE 20 MG TAB PO PRN (09:52)
[2020-10-22] MEDS ORDERED: MAGNESIUM HYDROXIDE 2,400 MG/10 ML CUP PO PRN (09:52)
[2020-10-22] MEDS ORDERED: CARBAMIDE PEROXIDE 6.5% DROPS 15 ML BTL BOTH EARS PRN (09:52)
[2020-10-22] MEDS ORDERED: MECLIZINE 25 MG TAB PO PRN (09:52)
[2020-10-22 11:39] LABS: Basophils # (A) 0.1 k/uL (0-0.2); Basophils % (A) 0 %; Eosinophils # (A) 0.1 k/uL (0-0.7); Eosinophils % (A) 1 %; HCT 32.8 % (34.0-46.0); HGB 10.9 gm/dL (11.4-16.0); Lymphocytes # (A) 0.8 k/uL (1.0-4.8); Lymphocytes % (A) 4 %; MCH 30.2 pg (25.0-35.0); MCHC 33.2 g/dL (31.0-37.0); Mean Platelet Volume 7.9; Monocytes # (A) 0.5 k/uL (0-1.0); Monocytes % (A) 3 %; Neutrophils # (A) 18.6 k/uL (1.3-7.7); Neutrophils % (A) 92 %; Platelet Count 269 k/uL (150-450); RDW 15.6 % (11.5-15.5); WBC 20.2 k/uL (3.8-10.6)
[2020-10-22 11:43] LABS: ALT 42 U/L (4-34); AST 139 U/L (14-36); African American GFR (CKD) >90 (>60 ml/min/1.73 sqM); Albumin 2.8 g/dL (3.5-5.0); Albumin/Globulin Ratio 0.8; Alkaline Phosphatase 71 U/L (38-126); Anion Gap 4 mmol/L; Blood Urea Nitrogen 14 mg/dL (7-17); Calcium 8.6 mg/dL (8.4-10.2); Carbon Dioxide 24 mmol/L (22-30); Chloride 102 mmol/L (98-107); Globulin 3.4 g/dL; Glucose 110 mg/dL (74-99); Non-African American GFR(CKD) >90 (>60 ml/min/1.73 sqM); Potassium 4.2 mmol/L (3.5-5.1); Sodium 130 mmol/L (137-145); Total Bilirubin 0.3 mg/dL (0.2-1.3); Total Protein 6.2 g/dL (6.3-8.2)
[2020-10-22] MEDS: GABAPENTIN 300 MG CAP PO SCH ×2 (12:00→20:19)
--- NOTE | 2020-10-22 12:25 | P.HPIM ---
History of Present Illness H&P Date: 10/22/20 Sofía Leslie is a 74 year-old female patient of Dr Jacob who presented to [facility] ER with a chief complaint of slurred speech, patient has a known history of bipolar disorder, schizophrenia, she is a poor historian her baseline mental status and speech pattern is not clear however caregivers. There is a change from her baseline and she was brought into emergency room to be evaluated for possible stroke. Patient was evaluated in the emergency room her temperature was 97.9 pulse 75 respiration 18 blood pressure 111/55 pulse ox 95% on room air, subsequently dropped to 83% on room air. Her laboratory data was significant for a white blood count of 26.8 sodium of 125 potassium of 6.0 and evidence of elevated AST at 101 and evidence of urinary tract infection. Patient underwent a computed tomography scan of the brain without contrast in the emergency room that revealed age-related atrophic and chronic small vessel disease changes without acute intracranial bleeding she also underwent computed tomography scan of the cervical spine due to recent fall there was no evidence for acute fracture or subluxation of the cervical spine CT angiogram of the brain did not reveal any significant abnormality in the [place] CT angiogram of the neck revealed 80% stenosis on the left internal carotid artery chest x-ray was positive for left upper lobe infiltrate correlate for pneumonia. EKG revealed accelerated junctional rhythm with nonspecific T-wave abnormality. Patient was started on IV antibiotic for UTI and pneumonia. She was started on IV fluid for severe hyponatremia she was admitted to medical floor infectious disease consultation and cardiology consultation were requested. Past Medical History Past Medical History: COPD, Diabetes Mellitus, Hypertension, Thyroid Disorder History of Any Multi-Drug Resistant Organisms: None Reported Past Surgical History: Unable to Obtain Past Anesthesia/Blood Transfusion Reactions: No Reported Reaction Past Psychological History: Depression, Schizophrenia Additional Psychological History / Comment(s): SEVERELY PARANOID Smoking Status: Current every day smoker Past Alcohol Use History: None Reported, Abuse Past Drug Use History: None Reported Medications and Allergies Home Medications Medication Instructions Recorded Confirmed Type ALPRAZolam [Xanax] 0.25 mg PO TID PRN 06/15/20 10/21/20 History Baclofen 10 mg PO BID@0800,199906/15/20 10/21/20 History Betamethasone Dipropionate 1 applic TOPICAL BID PRN 06/15/20 10/21/20 History [Diprolene AF 0.05% Cream] Carbamide Peroxide [Debrox Otic] 6 drops BOTH EARS DAILY PRN 06/15/20 10/21/20 History Docusate [Colace] 100 mg PO BID@0800,199906/15/20 10/21/20 History Fluticasone/Umeclidin/Vilanter 1 puff INHALATION RT-DAILY@199906/15/20 10/21/20 History [Trelegy Ellipta 100-62.5-25] Furosemide [Lasix] 20 mg PO DAILY PRN 06/15/20 10/21/20 History Gabapentin [Neurontin] 300 mg PO TID@0800,1300,199906/15/20 10/21/20 History Ipratropium-Albuterol Nebulize 3 ml INHALATION RT-QID PRN 06/15/20 10/21/20 History [Duoneb 0.5 mg-3 mg/3 ml Soln] Levothyroxine Sodium [Synthroid] 50 mcg PO DAILY@79906/15/20 10/21/20 History Magnesium Hydroxide [Milk of 2,400 mg PO DAILY PRN 06/15/20 10/21/20 History Magnesia] Meclizine HCl 25 mg PO BID PRN 06/15/20 10/21/20 History Mupirocin 2% Oint [Bactroban 2% 1 applic TOPICAL TID PRN 06/15/20 10/21/20 History Oint] Simvastatin [Zocor] 20 mg PO DAILY@199906/15/20 10/21/20 History Vitamin B Complex 1 tab PO DAILY@0806/15/20 10/21/20 History amLODIPine [Norvasc] 5 mg PO DAILY@0806/15/20 10/21/20 History buPROPion HCL [Wellbutrin SR] 150 mg PO BID@0800,199906/15/20 10/21/20 History guaiFENesin [guaiFENesin Oral 200 mg PO BID@0800,199906/15/20 10/21/20 History Solution] metFORMIN HCL ER [Glucophage Xr] 500 mg PO HS@199906/15/20 10/21/20 History polyethylene glycoL 3350 [Miralax] 17 gm PO DAILY@0806/15/20 10/21/20 History risperiDONE 1.5 mg PO BID@0800,199906/15/20 10/21/20 History Acetaminophen Tab [Tylenol Tab] 500 - 1,000 mg PO Q8H PRN 10/21/20 10/21/20 History Azithromycin [Zithromax] See Taper PO DAILY@0800 10/21/20 10/21/20 History Theraworx Relief 1 pump TOPICAL BID PRN 10/21/20 10/21/20 History Allergies Allergy/AdvReac Type Severity Reaction Status Date / Time No Known Allergies Allergy Verified 10/21/20 09:00 Physical Exam Vitals: Vital Signs Temp Pulse Pulse Resp BP BP Pulse Ox 10/22/20 11:31 93 L 10/22/20 07:00 98.1 F 82 127/69 91 L 10/21/20 19:50 98.0 F 95 18 135/74 95 10/21/20 18:34 97.6 F 84 18 145/64 94 L 10/21/20 12:30 70 17 119/63 89 L Intake and Output 10/21/20 10/22/20 10/22/20 22:59 06:59 14:59 Intake Total 1320 Balance 1320 Intake: Intake, IV Titration 960 Amount Sodium Chloride 0.9% 1, 960 000 ml @ 80 mls/hr IV . [id number] [facility] Rx#:[id number] Oral 360 Other: Voiding Method Incontinent Incontinent # Voids 1 2 1 # Bowel Movements 1 Weight 76.204 kg In general patient is alert slightly confused in no apparent distress HEENT head normocephalic and atraumatic Neck is supple no JVD no goiter no lymphadenopathy Chest exam reveals a few scattered rhonchi no wheezing Cardiac exam reveals regular heart sounds S1 and S2 no gallops no murmurs Abdomen is soft nontender no organomegaly with normal bowel sounds Extremity exam reveals no edema no cyanosis or clubbing Neurological examination reveals no gross focal deficit Results CBC & Chem 7: 10/22/20 10:56 10/22/20 10:56 Labs: Abnormal Lab Results - Last 24 Hours (Table) 10/21/20 10/22/20 10/22/20 Range/Units 12:00 10:56 10:56 WBC 20.2 H (3.8-10.6) k/uL RBC 3.60 L (3.80-5.40) m/uL Hgb 10.9 L (11.4-16.0) gm/dL Hct 32.8 L (34.0-46.0) % RDW 15.6 H (11.5-15.5) % Neutrophils # 18.6 H (1.3-7.7) k/uL Lymphocytes # 0.8 L (1.0-4.8) k/uL Sodium 130 L (137-145) mmol/L Glucose 110 H (74-99) mg/dL AST 139 H (14-36) U/L ALT 42 H (4-34) U/L Total Protein 6.2 L (6.3-8.2) g/dL Albumin 2.8 L (3.5-5.0) g/dL Urine Appearance Turbid H (Clear) Ur Specific [place] 1.046 H (1.001-1.035) Urine Protein 1+ H (Negative) Urine Blood Large H (Negative) Ur Leukocyte Esterase Large H (Negative) Urine RBC 49 H (0-5) /hpf Urine WBC >182 H (0-5) /hpf Urine WBC Clumps Many H (None) /hpf Urine Mucus Occasional H (None) /hpf Microbiology - Last 24 Hours (Table) 10/21/20 12:00 Urine Culture - Preliminary Urine,Catheterized Thrombosis Risk Factor Assmnt - Choose All That Apply Any of the Below Risk Factors Present?: No Other Risk Factors: Yes Each Risk Factor Represents 3 Points: Age 75 years or older Thrombosis Risk Factor Assessment Total Risk Factor Score: 3 Thrombosis Risk Factor Assessment Level: Moderate Risk Assessment and Plan Plan: 1. Left upper lobe pneumonia 2. Urinary tract infection 3. Hyponatremia 4. Hyperkalemia 5. Possible worsening mental status changes and slurred speech Neurology consultation was requested. 6. Slight elevation in liver enzymes will check liver ultrasound. At this time patient was started on IV Rocephin and oral Zithromax Medication and labs were reviewed and reordered Will follow during this admission for medical management
[2020-10-22] MEDS: ASPIRIN 81 MG PO SCH (13:05)
[2020-10-22] MEDS: CLOPIDOGREL 75 MG TAB PO SCH (13:40)
--- NOTE | 2020-10-22 14:10 | P.CRDCN ---
History of Present Illness Consult date: 10/22/20 Chief complaint: Slurred speech History of present illness: This is a 74-year-old female patient who has a known history of bipolar disorder, schizophrenia, she is a poor historian, most of the information was taken from the medical record. Patient was apparently brought to the hospital because it was noted by her caregivers that she was having a change in her speech pattern, slurring of speech. They brought her to the emergency room for evaluation of possible stroke. Temperature on arrival here 97.9, blood pressure 110/50 with a heart rate in the 70s, 95% on room air. Subsequently her oxygenation dropped to 80%. Her laboratory data was reviewed, white blood cell count 26.8, sodium 125, potassium 6, AST 101, evidence of a urinary tract infection. Patient underwent a computed tomography scan of the brain without contrast in the emergency room that revealed age-related atrophic and chronic small vessel disease changes without any acute intracranial bleeding. CT angiogram revealed 80% stenosis in the left carotid artery. Chest x-ray showed left upper lobe infiltrate, correlate for possible pneumonia. KG showed a normal sinus rhythm with nonspecific ST-T wave changes. No evidence of junctional rhythm. Patient has been initiated on antibiotics for UTI and pneumonia. She is also started on IV fluids for her severe hyponatremia. According to the medical record, patient does have a history of diabetes, hypertension, hypothyroidism, COPD, depression, schizophrenia, nicotine dependence and bipolar disorder. Past Medical History Past Medical History: COPD, Diabetes Mellitus, Hypertension, Thyroid Disorder History of Any Multi-Drug Resistant Organisms: None Reported Past Surgical History: Unable to Obtain Past Anesthesia/Blood Transfusion Reactions: No Reported Reaction Past Psychological History: Depression, Schizophrenia Additional Psychological History / Comment(s): SEVERELY PARANOID Smoking Status: Current every day smoker Past Alcohol Use History: None Reported, Abuse Past Drug Use History: None Reported Medications and Allergies Home Medications Medication Instructions Recorded Confirmed Type ALPRAZolam [Xanax] 0.25 mg PO TID PRN 06/15/20 10/21/20 History Baclofen 10 mg PO BID@0800,199906/15/20 10/21/20 History Betamethasone Dipropionate 1 applic TOPICAL BID PRN 06/15/20 10/21/20 History [Diprolene AF 0.05% Cream] Carbamide Peroxide [Debrox Otic] 6 drops BOTH EARS DAILY PRN 06/15/20 10/21/20 History Docusate [Colace] 100 mg PO BID@0800,199906/15/20 10/21/20 History Fluticasone/Umeclidin/Vilanter 1 puff INHALATION RT-DAILY@199906/15/20 10/21/20 History [Trelegy Ellipta 100-62.5-25] Furosemide [Lasix] 20 mg PO DAILY PRN 06/15/20 10/21/20 History Gabapentin [Neurontin] 300 mg PO TID@0800,1300,199906/15/20 10/21/20 History Ipratropium-Albuterol Nebulize 3 ml INHALATION RT-QID PRN 06/15/20 10/21/20 History [Duoneb 0.5 mg-3 mg/3 ml Soln] Levothyroxine Sodium [Synthroid] 50 mcg PO DAILY@0800 06/15/20 10/21/20 History Magnesium Hydroxide [Milk of 2,400 mg PO DAILY PRN 06/15/20 10/21/20 History Magnesia] Meclizine HCl 25 mg PO BID PRN 06/15/20 10/21/20 History Mupirocin 2% Oint [Bactroban 2% 1 applic TOPICAL TID PRN 06/15/20 10/21/20 History Oint] Simvastatin [Zocor] 20 mg PO DAILY@199906/15/20 10/21/20 History Vitamin B Complex 1 tab PO DAILY@0800 06/15/20 10/21/20 History amLODIPine [Norvasc] 5 mg PO DAILY@0800 06/15/20 10/21/20 History buPROPion HCL [Wellbutrin SR] 150 mg PO BID@0800,199906/15/20 10/21/20 History guaiFENesin [guaiFENesin Oral 200 mg PO BID@0800,199906/15/20 10/21/20 History Solution] metFORMIN HCL ER [Glucophage Xr] 500 mg PO HS@199906/15/20 10/21/20 History polyethylene glycoL 3350 [Miralax] 17 gm PO DAILY@0800 06/15/20 10/21/20 History risperiDONE 1.5 mg PO BID@0800,199906/15/20 10/21/20 History Acetaminophen Tab [Tylenol Tab] 500 - 1,000 mg PO Q8H PRN 10/21/20 10/21/20 History Azithromycin [Zithromax] See Taper PO DAILY@0800 10/21/20 10/21/20 History Theraworx Relief 1 pump TOPICAL BID PRN 10/21/20 10/21/20 History Allergies Allergy/AdvReac Type Severity Reaction Status Date / Time No Known Allergies Allergy Verified 10/21/20 09:00 Physical Exam Vitals: Vital Signs Temp Pulse Pulse Resp BP BP Pulse Ox 10/22/20 11:31 93 L 10/22/20 07:00 98.1 F 82 127/69 91 L 10/21/20 19:50 98.0 F 95 18 135/74 95 10/21/20 18:34 97.6 F 84 18 145/64 94 L Intake and Output 10/21/20 10/22/20 10/22/20 22:59 06:59 14:59 Intake Total 1320 Balance 1320 Intake: Intake, IV Titration 960 Amount Sodium Chloride 0.9% 1, 960 000 ml @ 80 mls/hr IV . [id number] [facility] Rx#:[id number] Oral 360 Other: Voiding Method Incontinent Incontinent # Voids 1 2 1 # Bowel Movements 1 Weight 76.204 kg PHYSICAL EXAMINATION: GENERAL: 74-year-old female in no acute distress at the time of my examination, slightly confused HEENT: Head is atraumatic, normocephalic. Pupils equal, round. Sclera anicteric. Conjunctiva are clear. Mucous membranes of the mouth are moist. Neck is supple. There is no elevated jugular venous pressure. HEART EXAMINATION: Heart S1, S2 normal. No murmur or gallop heard. CHEST EXAMINATION: Lungs reveal scattered coarse wheezing and rhonchi throughout . ABDOMEN: Soft, nontender. Bowel sounds are heard. No organomegaly noted. EXTREMITIES: 2+ peripheral pulses with no evidence of peripheral edema and no calf tenderness noted. NEUROLOGIC patient is awake, alert and oriented 1 . . Results 10/22/20 10:56 10/22/20 10:56 Cardiac Enzymes 10/22/20 Range/Units 10:56 AST 139 H (14-36) U/L CBC 10/22/20 Range/Units 10:56 WBC 20.2 H (3.8-10.6) k/uL RBC 3.60 L (3.80-5.40) m/uL Hgb 10.9 L (11.4-16.0) gm/dL Hct 32.8 L (34.0-46.0) % Plt Count 269 (150-450) k/uL Comprehensive Metabolic Panel 10/22/20 Range/Units 10:56 Sodium 130 L (137-145) mmol/L Potassium 4.2 (3.5-5.1) mmol/L Chloride 102 (98-107) mmol/L Carbon Dioxide 24 (22-30) mmol/L BUN 14 (7-17) mg/dL Creatinine 0.58 (0.52-1.04) mg/dL Glucose 110 H (74-99) mg/dL Calcium 8.6 (8.4-10.2) mg/dL AST 139 H (14-36) U/L ALT 42 H (4-34) U/L Alkaline Phosphatase 71 (38-126) U/L Total Protein 6.2 L (6.3-8.2) g/dL Albumin 2.8 L (3.5-5.0) g/dL Current Medications Generic Name Dose Route Start Last Admin Trade Name Freq PRN Reason Stop Dose Admin Acetaminophen 500 mg 10/22/20 09:52 Acetaminophen Tab 500 Mg Tab PO Q8H PRN Pain or Fever > 100.5 Albuterol/Ipratropium 3 ml 10/22/20 09:52 Ipratropium-Albuterol 3 Ml Neb INHALATION RT-QID PRN Shortness Of Breath Alprazolam 0.25 mg 10/22/20 09:52 Alprazolam 0.25 Mg Tab PO TID PRN Anxiety Amlodipine Besylate 5 mg 10/23/20 08:00 Amlodipine 5 Mg Tab PO DAILY@0800 [facility] Aspirin 81 mg 10/22/20 13:00 10/22/20 13:05 Aspirin 81 Mg PO 81 mg DAILY [facility] Administration Atorvastatin Calcium 40 mg 10/22/20 21:00 Atorvastatin 40 Mg Tab PO HS DAMIAN Baclofen 10 mg 10/22/20 20:00 Baclofen 10 Mg Tab PO BID@0800,2000 [facility] Betamethasone Dipropionate 1 applic 10/22/20 09:52 Betamethasone Dipropionate 0.05% Cream 15 Gm Tube TOPICAL BID PRN Rash Budesonide/Formoterol Fumarate 2 puff 10/22/20 20:00 Symbicort 80-4.5 Mcg Inhaler INHALATION RT-BID [facility] Bupropion HCl 150 mg 10/22/20 20:00 Bupropion Sr 150 Mg Tablet.Er PO BID@ [facility] Carbamide Perox/Anhydrous Glycerin 6 drops 10/22/20 09:52 Carbamide Peroxide 6.5% Drops 15 Ml Btl BOTH EARS DAILY PRN earwax buildup Clopidogrel Bisulfate 75 mg 10/22/20 13:15 10/22/20 13:40 Clopidogrel 75 Mg Tab PO 75 mg DAILY [facility] Administration Docusate Sodium 100 mg 10/22/20 20:00 Docusate 100 Mg Cap PO BID@ [facility] Furosemide 20 mg 10/22/20 09:52 Furosemide 20 Mg Tab PO DAILY PRN LEG SWELLING Gabapentin 300 mg 10/22/20 13:00 10/22/20 12:00 Gabapentin 300 Mg Cap PO 300 mg TID@08,1299,1999 [facility] Administration Guaifenesin 200 mg 10/22/20 20:00 Guaifenesin Syrup 100mg/5ml 200 Mg/10 Ml Cup PO BID@ [facility] Sodium Chloride 1,000 mls @ 80 mls/hr 10/21/20 13:00 10/22/20 08:28 Saline 0.9% IV 80 mls/hr .[id number] [facility] Administration Ceftriaxone Sodium 1 gm/ 50 mls @ 100 mls/hr 10/22/20 10:15 10/22/20 10:08 Sodium Chloride IVPB 100 mls/hr Q24HR [facility] Administration Ipratropium [place] 0.5 mg 10/22/20 20:00 Ipratropium 0.5 Mg/2.5 Ml Nebu INHALATION RT-QID [facility] Levothyroxine Sodium 50 mcg 10/23/20 08:00 Levothyroxine 50 Mcg Tab PO DAILY@0800 [facility] Magnesium Hydroxide 2,400 mg 10/22/20 09:52 Magnesium Hydroxide 2,400 Mg/10 Ml Cup PO DAILY PRN Constipation Meclizine HCl 25 mg 10/22/20 09:52 Meclizine 25 Mg Tab PO BID PRN DIZZINESS Metformin HCl 250 mg 10/22/20 20:00 Metformin 500 Mg Tab PO BID@ [facility] Mupirocin 1 applic 10/22/20 09:52 Mupirocin 2% Oint 22 Gm Tube TOPICAL TID PRN SKIN LESIONS/INFECTION Naloxone HCl 0.2 mg 10/21/20 12:51 Naloxone 0.4 Mg/Ml 1 Ml Vial IV Q2M PRN Opioid Reversal Ondansetron HCl 4 mg 10/21/20 12:51 Ondansetron 4 Mg/2 Ml Vial IVP Q8HR PRN Nausea And Vomiting Polyethylene Glycol 17 gm 10/23/20 08:00 Polyethylene Glycol 3350 17 Gm Powd.Pack PO DAILY@0800 [facility] Risperidone 1.5 mg 10/22/20 20:00 Risperidone 0.5 Mg Tab PO BID@ [facility] Intake and Output 10/21/20 10/22/20 10/22/20 22:59 06:59 14:59 Intake Total 1320 Balance 1320 Intake: Intake, IV Titration 960 Amount Sodium Chloride 0.9% 1, 960 000 ml @ 80 mls/hr IV . [id number] [facility] Rx#:[id number] Oral 360 Other: Voiding Method Incontinent Incontinent # Voids 1 2 1 # Bowel Movements 1 Weight 76.204 kg 10/22/20 10:56 10/22/20 10:56 EKG Interpretations (text) EKG shows a normal sinus rhythm with nonspecific ST-T wave changes Assessment and Plan Plan: Assessment and plan #1 mental status changes with associated slurring of speech, neurology consulted #2 left carotid stenosis, 80% #3 left upper lobe pneumonia #4 hyponatremia #5 hyperkalemia #6 elevated liver enzymes Plan We will obtain an echocardiogram with Doppler study. We will also add Plavix and a statin to the patient's medication regime. No evidence of junctional rhythm on the EKG or monitor. Further recommendations to follow. DNP note has been reviewed, I agree with a documented findings and plan of care. Patient was seen and examined.
[2020-10-22 18:53] LABS: Chol/HDL Ratio 1.93; Cholesterol 114 mg/dL (0-200); Triglycerides <50.0 mg/dL (0.0-149.0)
[2020-10-22] MEDS: IPRATROPIUM 0.5 MG/2.5 ML NEBU INHALATION SCH (19:15)
[2020-10-22] MEDS: SYMBICORT 80-4.5 MCG INHALER INHALATION SCH (19:16)
--- NOTE | 2020-10-22 19:45 | P.CNNES ---
History of Present Illness Consult date: 10/22/20 Requesting physician: Steve Tracey Reason for Consult: altered mental status History of Present Illness: This is a 74-year-old woman with medical history of diabetes, hypertension, bipolar, schizophrenia presented to [facility] ED on 10/21/2020 for altered mental status. Patient is a poor historian. I attempted to contact patient son via phone but received voice message. She was obtained from medical records. Per medical record according to the nursing staff the patient was at bedside sitting on the bed but seemed to be more altered the today upon waking up on 10/21/2020. a is a concern that the patient has a slurring of the speech. Unclear exactly when the symptoms were started. She does have memory issues about her mentation is change from her baseline. Workup in the hospital consisted of: CT of the head was reported as age-related atrophic and chronic small vessel ischemic changes without acute intracranial process seen at this time. I reviewed the CT of the head and agree with the report. CT cervical spine is reported as no evidence for acute fracture or subluxation of cervical spine. CT angiography of the head and neck was reported as a diameter reduction is estimated at 80% on the left internal carotid artery. 50% stenosis involving the right internal carotid artery. Left upper lobe infiltrate the. Correlate for pneumonia. CT of the head was reported as no significant abnormality. EKG reported as accelerated junctional rhythm. Nonspecific T wave abnormality. Abnormal EKG. On initial presentation the patient 1 blood cell is 26.8 on repeated is 20.2. And it's predominantly neutrophilic. Patient sodium on presentation is 125 on repeated is a 130. Patient the baseline sodium is a runs from 126 to 132. An initial serum glucose is 118. Calcium is 9.0. Urine analysis. It appears that her bed, leukocyte esterase is large, urine white blood cell is more than 182, urine white blood cell clumps is many. This is suggestive of urinary tract infection. Review of Systems Review of system is limited because of the patient's condition but per her positive and negative as per HPI. Past Medical History Past Medical History: COPD, Diabetes Mellitus, Hypertension, Thyroid Disorder History of Any Multi-Drug Resistant Organisms: None Reported Past Surgical History: Unable to Obtain Past Anesthesia/Blood Transfusion Reactions: No Reported Reaction Past Psychological History: Depression, Schizophrenia Additional Psychological History / Comment(s): SEVERELY PARANOID Smoking Status: Current every day smoker Past Alcohol Use History: None Reported, Abuse Past Drug Use History: None Reported Medications and Allergies Home Medications Medication Instructions Recorded Confirmed Type ALPRAZolam [Xanax] 0.25 mg PO TID PRN 06/15/20 10/21/20 History Baclofen 10 mg PO BID@0800,199906/15/20 10/21/20 History Betamethasone Dipropionate 1 applic TOPICAL BID PRN 06/15/20 10/21/20 History [Diprolene AF 0.05% Cream] Carbamide Peroxide [Debrox Otic] 6 drops BOTH EARS DAILY PRN 06/15/20 10/21/20 History Docusate [Colace] 100 mg PO BID@0800,199906/15/20 10/21/20 History Fluticasone/Umeclidin/Vilanter 1 puff INHALATION RT-DAILY@199906/15/20 10/21/20 History [Trelegy Ellipta 100-62.5-25] Furosemide [Lasix] 20 mg PO DAILY PRN 06/15/20 10/21/20 History Gabapentin [Neurontin] 300 mg PO TID@0800,1300,199906/15/20 10/21/20 History Ipratropium-Albuterol Nebulize 3 ml INHALATION RT-QID PRN 06/15/20 10/21/20 History [Duoneb 0.5 mg-3 mg/3 ml Soln] Levothyroxine Sodium [Synthroid] 50 mcg PO DAILY@0806/15/20 10/21/20 History Magnesium Hydroxide [Milk of 2,400 mg PO DAILY PRN 06/15/20 10/21/20 History Magnesia] Meclizine HCl 25 mg PO BID PRN 06/15/20 10/21/20 History Mupirocin 2% Oint [Bactroban 2% 1 applic TOPICAL TID PRN 06/15/20 10/21/20 History Oint] Simvastatin [Zocor] 20 mg PO DAILY@199906/15/20 10/21/20 History Vitamin B Complex 1 tab PO DAILY@0806/15/20 10/21/20 History amLODIPine [Norvasc] 5 mg PO DAILY@79906/15/20 10/21/20 History buPROPion HCL [Wellbutrin SR] 150 mg PO BID@0800,199906/15/20 10/21/20 History guaiFENesin [guaiFENesin Oral 200 mg PO BID@799,199906/15/20 10/21/20 History Solution] metFORMIN HCL ER [Glucophage Xr] 500 mg PO HS@199906/15/20 10/21/20 History polyethylene glycoL 3350 [Miralax] 17 gm PO DAILY@0806/15/20 10/21/20 History risperiDONE 1.5 mg PO BID@08,199906/15/20 10/21/20 History Acetaminophen Tab [Tylenol Tab] 500 - 1,000 mg PO Q8H PRN 10/21/20 10/21/20 History Azithromycin [Zithromax] See Taper PO DAILY@0800 10/21/20 10/21/20 History Theraworx Relief 1 pump TOPICAL BID PRN 10/21/20 10/21/20 History Allergies Allergy/AdvReac Type Severity Reaction Status Date / Time No Known Allergies Allergy Verified 10/21/20 09:00 Physical Examination - Vital Signs Vital Signs: Vital Signs Temp Pulse Pulse Resp BP BP Pulse Ox 10/22/20 11:31 93 L 10/22/20 07:00 98.1 F 82 127/69 91 L 10/21/20 19:50 98.0 F 95 18 135/74 95 10/21/20 18:34 97.6 F 84 18 145/64 94 L Intake and Output 10/21/20 10/22/20 10/22/20 22:59 06:59 14:59 Intake Total 1320 Balance 1320 Intake: Intake, IV Titration 960 Amount Sodium Chloride 0.9% 1, 960 000 ml @ 80 mls/hr IV . [id number] [facility] Rx#:[id number] Oral 360 Other: Voiding Method Incontinent Incontinent # Voids 1 2 1 # Bowel Movements 1 Weight 76.204 kg GENERAL: The patient is lying in bed and is not in acute distress. Patient seemed restless. CHEST: The heart rate is regular rate rhythm. No murmurs to auscultation. Positive carotid bruit over the left. LUNG: Clear to auscultation bilaterally no wheezing noted throughout. Not labored breathing. ABDOMEN/GI: Bowel sounds present in all 4 quadrants. No tenderness to palpation throughout. NEUROLOGICAL: Higher mental function: The patient is awake, alert, oriented to self only. Correctly naming objects such as cup, phone and pen. Patient is following simple commands. I felt she had garbled speech and concern for aphasia (predominately broca) but unsure patient baseline. No neglect. Cranial nerves: The pupils are round, equal (3-4mm) and reactive to light. Visual conley are full to confrontation throughout. Extraocular movement is intact no nystagmus is noted. Facial sensation is normal to touch throughout. The facial strength is normal throughout. Hearing is slightly decreased to hand rub bilaterlly. Tongue is midline and moved [id number] without any difficulty. No dysarthria is noted. Shoulder shrug is normal bilaterally. Motor: Gait is deferred. The strength is able to move all extremities above gravity without drift. Could not assess each individual muscle because of cooperation. Normal tone and bulk. Cerebellum: Normal finger to nose bilaterally. Sensation: Sensation is normal to touch throughout. Reflexes (right/left):2+ throughout. Plantars are downgoing bilaterally. Results Schneider virus PCR is nondetected Cognition study: PT of 9.8, INR 0.9 and PTT of 24.8. - Laboratory Findings CBC and BMP: 10/22/20 10:56 10/22/20 10:56 Abnormal Lab Findings: Abnormal Labs 10/21/20 10/21/20 10/21/20 09:20 09:21 09:21 WBC 26.8 H RBC Hgb 11.2 L Hct RDW 15.8 H Neutrophils # Neutrophils # (Manual) 25.90 H Lymphocytes # Lymphocytes # (Manual) 0.80 L Sodium 125 L Potassium 6.0 H Chloride 95 L Glucose 114 H POC Glucose (mg/dL) 118 H AST 101 H ALT Total Protein Albumin 3.3 L Urine Appearance Ur Specific Fork Urine Protein Urine Blood Ur Leukocyte Esterase Urine RBC Urine WBC Urine WBC Clumps Urine Mucus 10/21/20 10/22/20 10/22/20 12:00 10:56 10:56 WBC 20.2 H RBC 3.60 L Hgb 10.9 L Hct 32.8 L RDW 15.6 H Neutrophils # 18.6 H Neutrophils # (Manual) Lymphocytes # 0.8 L Lymphocytes # (Manual) Sodium 130 L Potassium Chloride Glucose 110 H POC Glucose (mg/dL) AST 139 H ALT 42 H Total Protein 6.2 L Albumin 2.8 L Urine Appearance Turbid H Ur Specific [place]ork 1.046 H Urine Protein 1+ H Urine Blood Large H Ur Leukocyte Esterase Large H Urine RBC 49 H Urine WBC >182 H Urine WBC Clumps Many H Urine Mucus Occasional H Assessment and Plan Assessment: This is a 74-year-old woman with multiple medical problems who presented to [facility] ED on 10/21/2020 for altered mental status. Patient is a poor historian. Per medical record according to the nursing staff the patient was at bedside sitting on the bed but seemed to be more altered the today upon waking up on 10/21/2020 and concern for slurring of speech. Unclear exactly when the symptoms were started. She does have memory issues about her mentation is change from her baseline. Slurring speech and on examination there is concern for aphasia (predominately broca): Concern for stroke. Possibly artery to artery emboli. Unsure patient baseline language. Toxic metabolic encephalopathy (urinary tract infection and the chronic hyponatremia) Left internal carotid stenosis (per CTA) Right Internal carotid stenosis (50% per CTA) Chronic hyponatremia (125 Baseline sodium is a runs from 126 to 132) likely due to medication use Urinary tract infection Diabetes mellitus Hypertension Bipolar, Schizophrenia Plan: MR the brain would help us delineate if the patient has an acute stroke but the patient is to his restless to get it. Therefore will will consider getting a repeated CT of the head tomorrow in the a.m. Patient is currently on Lipitor 10 mg daily and will increase to 40 mg daily. She received aspirin 324 mg once in the ED. But she is currently not on any antiplatelets. I started the patient on the aspirin 81 mg and cardiology started the patient on Plavix 75 mg I think will be suitable because of the carotid stenosis having on dual antiplatelets. For the patient the significant carotid stenosis over the left as well as junctional rhythm Dr. Akbar Andrews is consulted. Patient had the lipid profile on 05/29/2020: Triglyceride is less than 50, cholesterol is 125, LDL there is no value over the LDL, HDL 65. I'll repeat the lipid profile. Ordered 2-D echo. I consulted the physical therapy, occupational therapy and [employer]EL[employer]. TSH on 05/29/2020 is normal with a value of 2.770 with a free T4 of 1.30 both are normal. There is no reason to repeat this. Hemoglobin A1c is 6.1 on 05/29/2020 and there is no need to repeat this again. Ordered vitamin B12 and folate level. She is on gabapentin 300 mg 3 times a day as home bed and that was restarted by the primary team. I'll defer the management of hyponatremia to the primary team and recommend correcting the slowly. Blood cultures is pending ordered by ED. Infection disease is consulted. I attempted to contact patient's son via phone but received a voice message. Thank you for the consultation. Arnaldo Robbins M.D. Neuro-hospitalist Time with Patient: Greater than 30
[2020-10-22] MEDS ORDERED: ATORVASTATIN 10 MG TAB PO SCH (20:00)
[2020-10-22] MEDS: DOCUSATE 100 MG CAP PO SCH (20:19)
[2020-10-22] MEDS: guaiFENesin SYRUP 100MG/5ML 200 MG/10 ML CUP PO SCH (20:19)
[2020-10-22] MEDS: BACLOFEN 10 MG TAB PO SCH (20:19)
[2020-10-22] MEDS: buPROPion SR 150 MG TABLET.ER PO SCH (20:19)
[2020-10-22] MEDS: risperiDONE 0.5 MG TAB PO SCH (20:20)
[2020-10-22] MEDS: metFORMIN 500 MG TAB PO SCH (20:35)
[2020-10-22 20:49] LABS: Glucose,Whole Blood 134 mg/dL (75-99)
[2020-10-22] MEDS ORDERED: ATORVASTATIN 40 MG TAB PO SCH (21:00)
[2020-10-23] MEDS: AMPICILLIN-SULBACTAM 3 GM in SODIUM CHLORIDE 0.9% 100 ML IVPB SCH ×4 (00:20→18:45)
--- NOTE | 2020-10-23 06:13 | CONS ---
CONSULTATION DATE OF SERVICE: 10/22/2020. REASON FOR CONSULTATION: UTI and pneumonia. HISTORY OF PRESENT ILLNESS: The patient is a 74-year-old female with a past medical history significant for bipolar disorder. The patient has been brought into the ER at [facility] yesterday for evaluation of mental status changes and apparently the patient did have a fall. The patient at the time of my evaluation when asked specifically why she was in the hospital did not answer that question. The patient mentioned she is hard of hearing, but denies having any headache or URI symptoms. No chest pain. The patient did have minimal cough, but not bringing up any sputum. No nausea, no vomiting. No abdominal pain or any diarrhea. On arrival to the hospital, the patient has been afebrile with a low-grade fever of 99.5 this evening. The patient was hypoxic requiring supplemental oxygen. She did have a white count 26.8. Repeat is 20.2. Kidney function was normal. AST was mildly elevated. CRP and procalcitonin have not been done. She did have positive UA. Schneider PCR came back negative. The patient has been treated with Rocephin. Infectious Disease was consulted for further management of antibiotic therapy. History remains to be limited because the patient is not a good historian so most of the information has been extracted from review of the chart. This patient also has a chest x-ray with increasing left lung infiltrate. REVIEW OF SYSTEMS: Could not be completely obtained though the positive points have been mentioned in HPI. PAST MEDICAL HISTORY: COPD, diabetes mellitus, hypertension, hypothyroidism, depression, and schizophrenia. PAST SURGICAL HISTORY: No major surgery. SOCIAL HISTORY: Current everyday smoker. No drinking or drug use. FAMILY HISTORY: No pertinent findings noted. ALLERGIES: No known drug allergies. MEDICATIONS: Medications include the patient is currently on risperidone, MiraLAX, Zofran, Narcan, Bactroban, Antivert, Synthroid, Robitussin, Neurontin, Lasix, Rocephin 1 gram daily, Wellbutrin, Symbicort, baclofen, Lipitor, aspirin, Norvasc, and Xanax. PHYSICAL EXAMINATION: Blood pressure is 120/59, pulse of 77, temperature 99.5. She is 94% on 4 L nasal cannula. General description is an elderly female up in the bed in no distress. No tachypnea or accessory muscle of respiration use. HEENT: Examination shows pallor, no scleral icterus. Oral mucous membrane is dry. NECK: Trachea central. No thyromegaly. LUNGS: Unlabored breathing, decreased breath sounds at the base. No wheeze. HEART: S1, S2. Regular rate and rhythm. ABDOMEN: Soft, no tenderness. No guarding or rigidity. EXTREMITIES: No edema of feet. SKIN EXAMINATION: No rash or mass palpable. NEUROLOGICAL: The patient is an awake, alert, oriented x1. Mood and affect normal. LABS: Hemoglobin is 10.9, white count 20.2, with a BUN of 14, creatinine 0.58. Urine is positive. was negative. DIAGNOSTIC IMPRESSION: The patient admitted to the hospital with mental status changes. Source is likely symptomatic urinary tract infection underlying pneumonia less likely but not entirely excluded with urine culture now showing Enterococcus species. PLAN: 1. Discontinue Rocephin. 2. Will start the patient on Unasyn 3 grams q.6 hours. 3. We will follow on her clinical condition and culture to further adjust medication if needed. Thank you for this consultation. Will follow this patient along with you. MMODL / IJN: [id number] /
[2020-10-23 06:40] LABS: Basophils % (A) 0 %; Eosinophils # (A) 0.1 k/uL (0-0.7); Eosinophils % (A) 1 %; HCT 31.5 % (34.0-46.0); HGB 10.1 gm/dL (11.4-16.0); Lymphocytes # (A) 0.9 k/uL (1.0-4.8); Lymphocytes % (A) 8 %; MCH 29.5 pg (25.0-35.0); MCHC 32.2 g/dL (31.0-37.0); MCV 91.9 fL (80.0-100.0); Monocytes # (A) 0.7 k/uL (0-1.0); Monocytes % (A) 6 %; Neutrophils # (A) 10.2 k/uL (1.3-7.7); Neutrophils % (A) 84 %; Platelet Count 238 k/uL (150-450); RBC 3.43 m/uL (3.80-5.40); RDW 15.6 % (11.5-15.5); WBC 12.1 k/uL (3.8-10.6)
[2020-10-23 06:56] LABS: Glucose,Whole Blood 89 mg/dL (75-99)
[2020-10-23] MEDS ORDERED: NON FORMULARY DRUG (Vitamin B Complex [Vitamin B Complex] 1 EACH Capsule) PO SCH (08:00)
[2020-10-23] MEDS ORDERED: AZITHROMYCIN 250 MG TAB PO SCH (08:00)
[2020-10-23] MEDS ORDERED: amLODIPine 5 MG TAB PO SCH (08:00)
[2020-10-23] MEDS: IPRATROPIUM 0.5 MG/2.5 ML NEBU INHALATION SCH ×4 (08:03→20:26)
[2020-10-23] MEDS: SYMBICORT 80-4.5 MCG INHALER INHALATION SCH ×2 (08:03→20:26)
[2020-10-23] MEDS: LEVOTHYROXINE 50 MCG TAB PO SCH (08:32)
[2020-10-23] MEDS: ASPIRIN 81 MG PO SCH (08:32)
[2020-10-23] MEDS: GABAPENTIN 300 MG CAP PO SCH ×3 (08:32→21:53)
[2020-10-23] MEDS: guaiFENesin SYRUP 100MG/5ML 200 MG/10 ML CUP PO SCH ×2 (08:32→21:54)
[2020-10-23] MEDS: metFORMIN 500 MG TAB PO SCH ×2 (08:33→21:53)
[2020-10-23] MEDS: CLOPIDOGREL 75 MG TAB PO SCH (08:33)
[2020-10-23] MEDS: DOCUSATE 100 MG CAP PO SCH ×2 (08:33→21:53)
[2020-10-23] MEDS: BACLOFEN 10 MG TAB PO SCH ×2 (08:33→21:53)
[2020-10-23] MEDS: risperiDONE 0.5 MG TAB PO SCH ×2 (08:34→21:54)
[2020-10-23] MEDS: buPROPion SR 150 MG TABLET.ER PO SCH ×2 (08:34→21:54)
[2020-10-23] MEDS: polyethylene glycoL 3350 17 GM POWD.PACK PO SCH (08:34)
--- NOTE | 2020-10-23 09:33 | CT ---
EXAMINATION TYPE: CT brain wo con DATE OF EXAM: 10/23/2020 HISTORY: Slurring speech and aphasia. CT DLP: 1031.4 mGycm. Automated Exposure Control for Dose Reduction was Utilized. TECHNIQUE: CT scan of the head is performed without contrast. COMPARISON: CT brain 2 days ago. FINDINGS: There is no acute intracranial hemorrhage or midline shift identified. There is diffuse v entricular and sulcal prominence consistent with diffuse age-related cerebral atrophy. There is low- attenuation in the periventricular white matter consistent with chronic small vessel ischemic change. 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 The glob es are intact and the visualized sinuses are clear. Vascular calcification distal internal carotid arteries bilaterally redemonstrated. IMPRESSION: No acute intracranial hemorrhage or midline shift. There is mild diffuse age-related ce rebral atrophy and chronic small vessel ischemic change along with old lacunar infarct left head of c audate nucleus all redemonstrated. No significant interval change.
[2020-10-23 11:44] LABS: Glucose,Whole Blood 86 mg/dL (75-99)
--- NOTE | 2020-10-23 13:30 | ECHOF ---
Referral Reason:stroke MEASUREMENTS -------- HEIGHT: 167.6 cm WEIGHT: 76.2 kg BP: 127/69 IVSd: 1.2 cm (0.6 - 1.1) LVIDd: 4.9 cm (3.9 - 5.3) LVPWd: 1.3 cm (0.6 - 1.1) EDV(Teich): 113 ml IVSs: 1.9 cm LVIDs: 2.6 cm LVPWs: 1.9 cm %IVS Thck: 54 % ESV(Teich): 26 ml EF(Teich): 77 % %FS: 46 % SV(Teich): 87 ml RVIDd: 2.8 cm (< 3.3) IVC: 26.92 mm LALs A4C: 7.0 cm LAAs A4C: 29.7 cm LAESV A-L A4C: 107 ml LAESV MOD A4C: 93 ml LALs A2C: 5.4 cm LAAs A2C: 21.3 cm LAESV A-L A2C: 71 ml LAESV MOD A2C: 68 ml LAESV(A-L): 99 ml LAESV Index (A-L): 53.14 ml/m Ao Diam: 3.4 cm (2.0 - 3.7) AV Cusp: 2.0 cm (1.5 - 2.6) EPSS: 1.8 cm MV E Magdi: 1.14 m/s MV DecT: 152 ms MV Dec [place]: 7.5 m/s MV A Magdi: 1.14 m/s MV E/A Ratio: 1.00 MV PHT: 44 ms LVOT Vmax: 0.87 m/s LVOT maxP.06 mmHg AV Vmax: 1.51 m/s AV maxP.15 mmHg TR Vmax: 3.29 m/s TR maxP.28 mmHg RAP: 20.00 mmHg RVSP: 63.28 mmHg MV EF SLOPE: 83.32 mm/s (70 - 150) MV EXCURSION: 15.57 mm (> 18.000) FINDINGS -------- Sinus rhythm. This was a technically adequate study. The left ventricular size is normal. There is mild concentric left ventricular hypertrophy. Overa left ventricular systolic function is normal with, an EF between 55 - 60 %. The right ventricle is normal in size. LA is severely dilated >40 ml/m2 The right atrial size is normal. Interatrial and interventricular septum intact. The aortic valve is trileaflet and appears structurally normal. There is no evidence of aortic regu rgitation. There is no evidence of aortic stenosis. [id number] mitral regurgitation is present. Moderate to severe tricuspid regurgitation present. There is severe pulmonary hypertension. The r ight ventricular systolic pressure, as measured by Doppler, is 63.28mmHg. There is no pulmonic regurgitation present. The aortic root size is normal. The inferior vena cava is dilated with poor inspiratory collapse which is consistent with estimated r ight atrial pressure of 20 mmHg. There is a trivial pericardial effusion present. CONCLUSIONS -------- 1. The left ventricular size is normal. 2. There is mild concentric left ventricular hypertrophy. 3. Overall left ventricular systolic function is normal with, an EF between 55 - 60 %. 4. LA is severely dilated >40 ml/m2 5. Pnvt-vf-ckwnluav mitral regurgitation is present. 6. Moderate to severe tricuspid regurgitation present. 7. There is severe pulmonary hypertension. 8. The right ventricular systolic pressure, as measured by Doppler, is 63.28mmHg. 9. The inferior vena cava is dilated with poor inspiratory collapse which is consistent with estimate d right atrial pressure of 20 mmHg. 10. There is a trivial pericardial effusion present. COMPONENTS ENGINEER: Robyn Hook RDCS
[2020-10-23] MEDS ORDERED: IV FLUID CONTINUATION 950 ML IV ONE (14:10)
[2020-10-23] MEDS ORDERED: LIDOCAINE 1% INJ 10MG/ML (20 ML MDV) SQ ONE (14:40)
[2020-10-23] MEDS ORDERED: HEPARIN SODIUM 1,000 UN/ML (10ML VL) IV ONE (14:46)
[2020-10-23] MEDS ORDERED: CLOPIDOGREL 75 MG TAB PO ONE (15:46)
[2020-10-23] MEDS ORDERED: IOPAMIDOL-250 100ML BTL IV ONE (15:48)
[2020-10-23] MEDS ORDERED: SODIUM CHLORIDE 0.9% 1,000 ML in EMPTY BAG 1 BAG IV SCH (16:00)
[2020-10-23] MEDS: IPRATROPIUM-ALBUTEROL 3 ML NEB INHALATION PRN (17:03)
--- NOTE | 2020-10-23 17:22 | IR ---
EXAMINATION TYPE: IR stent intravas non coronary DATE OF EXAM: 10/23/2020 COMPARISON: CTA head and neck 10/21/2020 HISTORY: Internal carotid lesion TECHNIQUE: Fluoroscopy. FINDINGS: Fluoroscopic guidance was provided during procedure performed by Dr. Colindres. A total of 14. 6 minutes of fluoroscopic time was utilized during the procedure and 267 images acquired. Please see operative report for additional details. IMPRESSION: As Above.
--- NOTE | 2020-10-23 17:23 | P.PN ---
Subjective Progress Note Date: 10/23/20 Patient was taken for carotid stenting of the symptomatic CTA that was read by Dr. Colindres and he notified me that the the left internal carotid artery was actually about 20% the atherosclerotic plaque and he felt that external carotid artery was a more significantly the stenosis as a result there is no int ervention done. Today the sodium is 130. Objective - Vital Signs Vital signs: Vital Signs Temp 98.6 F 10/23/20 13:42 Pulse 76 10/23/20 17:03 Resp 12 10/23/20 16:41 BP 143/72 10/23/20 16:50 Pulse Ox 90 L 10/23/20 16:50 Intake & Output 10/22/20 10/23/20 10/23/20 18:59 06:59 18:59 Intake Total 200 400 Balance 200 400 Intake: IV 200 Sodium Chloride 0.9% 1, 0 000 ml @ 80 mls/hr IV . [id number] DAMIAN Rx#:[id number] Oral 200 200 Other: Voiding Method Incontinent Incontinent # Voids 1 1 3 # Bowel Movements 1 1 - Exam GENERAL: The patient is lying in bed and is not in acute distress. Patient seemed restless. CHEST: The heart rate is regular rate rhythm. No murmurs to auscultation. NEUROLOGICAL: Higher mental function: The patient is awake, alert, oriented to self only. Correctly naming objects such as cup, phone and pen. Patient is following simple commands. I felt she had garbled speech and concern for aphasia (predominately broca) but unsure patient baseline. No neglect. Cranial nerves: The pupils are round, equal (3-4mm) and reactive to light. Visual conley are full to confrontation throughout. Extraocular movement is intact no nystagmus is noted. Facial sensation is normal to touch throughout. The facial strength is normal throughout. Hearing is slightly decreased to hand rub bilaterally. Tongue is midline and moved [id number] without any difficulty. No dysarthria is noted. Shoulder shrug is normal bilaterally. Motor: Gait is deferred. The strength is able to move all extremities above gravity without drift. Could not assess each individual muscle because of cooperation. Normal tone and bulk. Cerebellum: Normal finger to nose bilaterally. Sensation: Sensation is normal to touch throughout. Reflexes (right/left):2+ throughout. Plantars are downgoing bilaterally. - Labs CBC & Chem 7: 10/23/20 05:34 10/22/20 10:56 Labs: Abnormal Lab Results - Last 24 Hours (Table) 10/22/20 10/22/20 10/22/20 Range/Units 10:56 10:56 20:47 WBC (3.8-10.6) k/uL RBC (3.80-5.40) m/uL Hgb (11.4-16.0) gm/dL Hct (34.0-46.0) % RDW (11.5-15.5) % Neutrophils # (1.3-7.7) k/uL Lymphocytes # (1.0-4.8) k/uL POC Glucose (mg/dL) 134 H (75-99) mg/dL C-Reactive Protein (0.0-0.8) mg/dL Vitamin B12 982.0 H (200.0-944.0) pg/mL RBC Folate 1,274 H (280 - 791) ng/mL Procalcitonin (0.02-0.09) ng/mL 10/23/20 10/23/20 10/23/20 Range/Units 05:34 05:34 05:34 WBC 12.1 H (3.8-10.6) k/uL RBC 3.43 L (3.80-5.40) m/uL Hgb 10.1 L (11.4-16.0) gm/dL Hct 31.5 L (34.0-46.0) % RDW 15.6 H (11.5-15.5) % Neutrophils # 10.2 H (1.3-7.7) k/uL Lymphocytes # 0.9 L (1.0-4.8) k/uL POC Glucose (mg/dL) (75-99) mg/dL C-Reactive Protein 19.6 H (0.0-0.8) mg/dL Vitamin B12 (200.0-944.0) pg/mL RBC Folate (280 - 791) ng/mL Procalcitonin 0.45 H (0.02-0.09) ng/mL Microbiology - Last 24 Hours (Table) 10/21/20 13:00 Blood Culture - Preliminary Blood No Growth after 48 hours 10/21/20 12:00 Urine Culture - Preliminary Urine,Catheterized Group D Enterococcus Assessment and Plan Assessment: This is a 74-year-old woman with multiple medical problems who presented to [facility] ED on 10/21/2020 for altered mental status. Patient is a poor historian. Per medical record according to the nursing staff the patient was at bedside sitting on the bed but seemed to be more altered the today upon waking up on 10/21/2020 and concern for slurring of speech. Unclear exactly when the symptoms were started. She does have memory issues about her mentation is change from her baseline. Slurring speech and on examination there is concern for aphasia (predominately broca): Concern for stroke. Possibly artery to artery emboli. Unsure patient baseline language. Toxic metabolic encephalopathy (urinary tract infection and the chronic hyponatremia) Left internal carotid stenosis (per CTA) but upon diagnostic cerebral angiogram it was 20%stenosis per Dr. Colindres Right Internal carotid stenosis (50% per CTA) Chronic hyponatremia (125 Baseline sodium is a runs from 126 to 132) likely due to medication use Urinary tract infection Diabetes mellitus Hypertension Bipolar, Schizophrenia Plan: MR the brain would help us delineate if the patient has an acute stroke but the patient is to his restless to get it. Repeat CT of the head shows no acute intracranial hemorrhage or midline shift. 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 No significant interval change. Patient is currently on Lipitor 10 mg daily and will increase to 40 mg daily. Initially the derrick boat runner increase it to 80 thinking that she had the significant carotid stenosis per CTA by the upon getting diagnostic cerebral angiogram and left ICA was 20% therefore I decrease in back to 40 mg daily. I started the patient on the aspirin 81 mg and cardiology started the patient on Plavix 75 mg I think will be suitable. Patient to continue dual antiplatelets for 21 days then the to the discontinue Plavix continue aspirin permanently. Again the patient had diagnostic cerebral angiogram and there is no significant carotid stenosis over the left ICA was about 20% therefore there is no intervention that was needed that. Regarding that junctional rhythm Dr. Colindres was not convinced off any arrhythmia such as A. fib or atrial flutter. Patient had the lipid profile on 05/29/2020: Triglyceride is less than 50, cholesterol is 125, LDL there is no value over the LDL, HDL 65. I'll repeat the lipid profile. 2-D echo: Reported as mild concentric left ventricular hypertrophy. Ejection fraction of 55-60%. Left atrium is severely dilated. Moderate to severe tricuspid regurgitation is present. There is severe pulmonary hypertension. Continue physical therapy, occupational therapy and ADMISSIONS NURSE. TSH on 05/29/2020 is normal with a value of 2.770 with a free T4 of 1.30 both are normal. There is no reason to repeat this. Hemoglobin A1c is 6.1 on 05/29/2020 and there is no need to repeat this again. vitamin B12: 982 and folate level: 1274 both above normal limit which is ok. She is on gabapentin 300 mg 3 times a day as home bed and that was restarted by the primary team. I'll defer the management of hyponatremia to the primary team and recommend correcting the slowly. I'll defer the management of severe pulmonary hypertension to the primary team. Blood cultures is pending ordered by ED. Infection disease is consulted. I attempted to contact patient's son via phone but received a voice message. Arnaldo Robbins M.D. Neuro-hospitalist Time with Patient: Less than 30
--- NOTE | 2020-10-23 18:16 | P.PN ---
Subjective Progress Note Date: 10/23/20 Sofía Leslie is a 74 year-old female patient of Dr Jacob who presented to [facility] ER with a chief complaint of slurred speech, patient has a known history of bipolar disorder, schizophrenia, she is a poor historian her baseline mental status and speech pattern is not clear however caregivers. There is a change from her baseline and she was brought into emergency room to be evaluated for possible stroke. Patient was evaluated in the emergency room her temperature was 97.9 pulse 75 respiration 18 blood pressure 111/55 pulse ox 95% on room air, subsequently dropped to 83% on room air. Her laboratory data was significant for a white blood count of 26.8 sodium of 125 potassium of 6.0 and evidence of elevated AST at 101 and evidence of urinary tract infection. Patient underwent a computed tomography scan of the brain without contrast in the emergency room that revealed age-related atrophic and chronic small vessel disease changes without acute intracranial bleeding she also underwent computed tomography scan of the cervical spine due to recent fall there was no evidence for acute fracture or subluxation of the cervical spine CT angiogram of the brain did not reveal any significant abnormality in the [place] of [place] CT angiogram of the neck revealed 80% stenosis on the left internal carotid artery chest x-ray was positive for left upper lobe infiltrate correlate for pneumonia. EKG revealed accelerated junctional rhythm with nonspecific T-wave abnormality. Patient was started on IV antibiotic for UTI and pneumonia. She was started on IV fluid for severe hyponatremia she was admitted to medical floor infectious disease consultation and cardiology consultation were requested. On 10/23/2020 patient was seen and examined on the medical floor she is alert, slightly confused in no apparent distress there is no fever or chills no headache or dizziness no chest pain no shortness of breath no cough no nausea or vomiting no abdominal pain no diarrhea and no urinary symptoms Objective - Vital Signs Vital signs: Vital Signs Temp 98.6 F 10/23/20 13:42 Pulse 76 10/23/20 16:15 Resp 12 10/23/20 16:15 BP 146/67 10/23/20 16:15 Pulse Ox 90 L 10/23/20 16:15 Intake & Output 10/22/20 10/23/20 10/23/20 18:59 06:59 18:59 Intake Total 200 400 Balance 200 400 Intake: IV 200 Sodium Chloride 0.9% 1, 0 000 ml @ 80 mls/hr IV . [id number] [facility] Rx#:[id number] Oral 200 200 Other: Voiding Method Incontinent Incontinent # Voids 1 1 3 # Bowel Movements 1 1 - Exam In general patient is alert slightly confused in no apparent distress HEENT head normocephalic and atraumatic Neck is supple no JVD no goiter no lymphadenopathy Chest exam reveals a few scattered rhonchi no wheezing Cardiac exam reveals regular heart sounds S1 and S2 no gallops no murmurs Abdomen is soft nontender no organomegaly with normal bowel sounds Extremity exam reveals no edema no cyanosis or clubbing Neurological examination reveals no gross focal deficit - Labs CBC & Chem 7: 10/23/20 05:34 10/22/20 10:56 Labs: Abnormal Lab Results - Last 24 Hours (Table) 10/22/20 10/22/20 10/22/20 Range/Units 10:56 10:56 20:47 WBC (3.8-10.6) k/uL RBC (3.80-5.40) m/uL Hgb (11.4-16.0) gm/dL Hct (34.0-46.0) % RDW (11.5-15.5) % Neutrophils # (1.3-7.7) k/uL Lymphocytes # (1.0-4.8) k/uL POC Glucose (mg/dL) 134 H (75-99) mg/dL C-Reactive Protein (0.0-0.8) mg/dL Vitamin B12 982.0 H (200.0-944.0) pg/mL RBC Folate 1,274 H (280 - 791) ng/mL Procalcitonin (0.02-0.09) ng/mL 10/23/20 10/23/20 10/23/20 Range/Units 05:34 05:34 05:34 WBC 12.1 H (3.8-10.6) k/uL RBC 3.43 L (3.80-5.40) m/uL Hgb 10.1 L (11.4-16.0) gm/dL Hct 31.5 L (34.0-46.0) % RDW 15.6 H (11.5-15.5) % Neutrophils # 10.2 H (1.3-7.7) k/uL Lymphocytes # 0.9 L (1.0-4.8) k/uL POC Glucose (mg/dL) (75-99) mg/dL C-Reactive Protein 19.6 H (0.0-0.8) mg/dL Vitamin B12 (200.0-944.0) pg/mL RBC Folate (280 - 791) ng/mL Procalcitonin 0.45 H (0.02-0.09) ng/mL Microbiology - Last 24 Hours (Table) 10/21/20 13:00 Blood Culture - Preliminary Blood No Growth after 48 hours 10/21/20 12:00 Urine Culture - Preliminary Urine,Catheterized Group D Enterococcus Assessment and Plan Plan: 1. Left upper lobe pneumonia 2. Urinary tract infection 3. Hyponatremia 4. Hyperkalemia 5. Possible worsening mental status changes and slurred speech Neurology consultation was requested. 6. Slight elevation in liver enzymes will check liver ultrasound. At this time patient was started on IV Rocephin and oral Zithromax Medication and labs were reviewed and reordered Will follow during this admission for medical management
[2020-10-23] MEDS ORDERED: FUROSEMIDE 10 MG/ML 4 ML VIAL IV STA (18:35)
[2020-10-23] MEDS: SODIUM CHLORIDE 0.9% 1,000 ML IV SCH (18:45)
[2020-10-23] MEDS ORDERED: ATORVASTATIN 80 MG TAB PO SCH (21:00)
--- NOTE | 2020-10-23 23:27 | LTR ---
October 23, 2020 To: Dr. Sanchez Re: Sofía Leslie (43) Dear Dr. Sanchez: Ms. Sofía Leslie underwent today selective carotid angiogram and that revealed only mild disease involving the left internal carotid artery. Because we had a hard time going up to her arch from the right groin with a lot of resistance and because of severe disease involving her common iliac system, I performed successful stenting of both iliacs with excellent angiographic results and without any complications. Thank you again for allowing us to participate in her care. Please do not hesitate to call if you have any question or concerns. Sincerely, Akbar Colnidres M.D. ABRAHAN / VIKKI: [id number] /
[2020-10-24] MEDS: ACETAMINOPHEN TAB 500 MG TAB PO PRN ×2 (00:04→23:19)
--- NOTE | 2020-10-24 00:18 | PN ---
PROGRESS NOTE DATE OF SERVICE: 10/23/2020 REASON FOR FOLLOWUP: UTI and possible pneumonia. INTERVAL HISTORY: Patient is currently afebrile. The patient is breathing slightly comfortably. Denies any chest pain. She did have a cough, not bringing up sputum. No nausea. No vomiting. No abdominal pain. No diarrhea. PHYSICAL EXAMINATION: Blood pressure 156/71 with a pulse of 80, temperature 98.3. She is 92% on 4 L nasal cannula. General description is an elderly female up in the chair in no distress. Respiratory system: Unlabored breathing, decreased breath sounds at bases. No wheeze. Heart S1, S2. Regular rate and rhythm. ABDOMEN: Soft, no tenderness. LABS: Hemoglobin is 10.1, white count 12.1. CRP is 19.6 with procalcitonin of 0.45. Urine with group D Enterococcus. DIAGNOSTIC IMPRESSION AND PLAN: Patient with urinary tract infection, urine with Enterococcus and question of pneumonia. Patient is covered with Unasyn to continue. White count showing a downward trend and continue supportive care. MMODL / IJN: [id number] /
--- NOTE | 2020-10-24 01:51 | AN ---
ANGIOGRAPHY REPORT DATE OF SERVICE: October 23, 2020 PERFORMING PHYSICIAN: Akbar Colindres MD. PROCEDURE PERFORMED: 1. Aortic arch angiogram. 2. Selective left internal carotid artery angiogram. 3. Selective bilateral iliac arteries angiogram. 4. Successful stenting of the right and left common iliac arteries using 8.0 x 39 on the right and 8.0 x 29 on the left in a kissing technique with an excellent angiographic results. INDICATIONS: This is a 74-year-old female patient with hypertension and dyslipidemia and multiple comorbid conditions who was admitted to the hospital with change in mental status and she was diagnosed with TIA/CVA. She was seen by a neurologist, Dr. Robbins who diagnosed the patient with possible stroke and also expressive aphagia. She underwent a CTA of the carotid and the CTA revealed severe disease involving the left internal carotid artery. Because of that, we consulted to see the patient. We advised proceeding with percutaneous stenting of the left carotid artery given the symptomatic state of the patient as well as the severity of the carotid disease. APPROACH: Right common femoral artery and left common femoral artery. COMPLICATION: None. LEVEL OF SEDATION: Moderate with sedation length of 66 minutes. PROCEDURE DESCRIPTION: After obtaining an informed consent, the patient was brought to the cardiac incinerator plant laborer. The right common femoral artery was cannulated using micropuncture technique and a micropuncture wire passed easily. Then I advanced a 0.[address] the way to the descending aorta. I had resistance advancing a 6-Wolof sheath across the right common iliac artery. There was extremely calcified segment of the right common iliac artery extending all the way to the ostium. Because of that I decided to balloon that iliac on my way up. I ballooned it using 6 mm x 20 mm balloon multiple times. After that I was an able to advance the Shuttle sheath [address] to the aortic arch. That was performed under fluoroscopic guidance. An aortic arch angiogram was performed and revealed a type 2 aortic arch. The arch was calcified. I did select the left common carotid artery using REJI 2 catheter. Multiple injections with multiple views of the left internal carotid artery were performed through the REJI 2 catheter. The lesion in the left internal carotid artery was only about 20%-30% and it was calcified, but the left external carotid artery has a very critical lesion. Because of that, we aborted any procedure or any intervention on the left carotid artery. Because we ballooned the left iliac and I was worried about acute vessel closure, I decided to stent that Iliac. Because the lesion was extending all the way to the ostium, I decided to do a kissing technique. At that point, I accessed the left common femoral artery using micropuncture technique under ultrasound guidance and then I placed a 6-Wolof sheath 23 cm Brite tip at the left common femoral artery. The same sheath was placed at the right common femoral artery. I did stenting of the right and left common iliac artery using kissing technique where I placed on the right 8 x 39 and on the left 8 x 29 mm. Both stents were deployed simultaneously. The following angiogram showed excellent angiographic results and the procedure was completed without any complication. After that, I did exchange my short sheath my 23 cm sheath into 11 cm sheath using 0.035 wire. Finally I did selective bilateral common femoral artery angiogram. The procedure was completed without any complication. CONCLUSION: 1. Only mild disease involving the left internal carotid system. 2. Critical disease involving the right common iliac artery. 3. Successful stenting of the right and left common iliac arteries in a kissing technique with an excellent angiographic results. POSTPROCEDURE MANAGEMENT: 1. Dual anti-platelet therapy. 2. Risk factor modifications. 3. Follow up with the patient. MMODL / IJN: [id number] /
[2020-10-24] MEDS: SODIUM CHLORIDE 0.9% 1,000 ML IV SCH ×3 (04:34→23:09)
[2020-10-24] MEDS: AMPICILLIN-SULBACTAM 3 GM in SODIUM CHLORIDE 0.9% 100 ML IVPB SCH ×6 (05:50→23:10)
[2020-10-24 08:36] LABS: Basophils % (A) 0 %; Eosinophils # (A) 0.1 k/uL (0-0.7); Eosinophils % (A) 1 %; HCT 30.3 % (34.0-46.0); HGB 9.9 gm/dL (11.4-16.0); Lymphocytes # (A) 0.9 k/uL (1.0-4.8); Lymphocytes % (A) 10 %; MCH 29.8 pg (25.0-35.0); MCHC 32.6 g/dL (31.0-37.0); MCV 91.2 fL (80.0-100.0); Mean Platelet Volume 6.9; Monocytes # (A) 0.5 k/uL (0-1.0); Monocytes % (A) 6 %; Neutrophils # (A) 6.9 k/uL (1.3-7.7); Neutrophils % (A) 79 %; Platelet Count 257 k/uL (150-450); RBC 3.33 m/uL (3.80-5.40); RDW 15.9 % (11.5-15.5); WBC 8.7 k/uL (3.8-10.6)
[2020-10-24 08:54] LABS: ALT 40 U/L (4-34); AST 60 U/L (14-36); African American GFR (CKD) >90 (>60 ml/min/1.73 sqM); Albumin 2.5 g/dL (3.5-5.0); Alkaline Phosphatase 65 U/L (38-126); Anion Gap 5 mmol/L; Blood Urea Nitrogen 9 mg/dL (7-17); Calcium 8.1 mg/dL (8.4-10.2); Carbon Dioxide 26 mmol/L (22-30); Chloride 102 mmol/L (98-107); Glucose 79 mg/dL (74-99); Non-African American GFR(CKD) >90 (>60 ml/min/1.73 sqM); Potassium 3.4 mmol/L (3.5-5.1); Sodium 133 mmol/L (137-145); Total Bilirubin 0.6 mg/dL (0.2-1.3); Total Protein 5.7 g/dL (6.3-8.2)
[2020-10-24] MEDS: SYMBICORT 80-4.5 MCG INHALER INHALATION SCH ×2 (09:25→18:54)
[2020-10-24] MEDS: IPRATROPIUM 0.5 MG/2.5 ML NEBU INHALATION SCH ×4 (09:26→18:54)
[2020-10-24] MEDS: polyethylene glycoL 3350 17 GM POWD.PACK PO SCH (10:30)
[2020-10-24] MEDS: metFORMIN 500 MG TAB PO SCH ×2 (10:30→20:09)
[2020-10-24] MEDS: guaiFENesin SYRUP 100MG/5ML 200 MG/10 ML CUP PO SCH ×2 (10:30→20:09)
[2020-10-24] MEDS: GABAPENTIN 300 MG CAP PO SCH ×3 (10:30→20:09)
[2020-10-24] MEDS: DOCUSATE 100 MG CAP PO SCH ×2 (10:31→20:09)
[2020-10-24] MEDS: BACLOFEN 10 MG TAB PO SCH ×2 (10:31→20:09)
[2020-10-24] MEDS: CLOPIDOGREL 75 MG TAB PO SCH (10:31)
[2020-10-24] MEDS: ASPIRIN 81 MG PO SCH (10:31)
[2020-10-24] MEDS: risperiDONE 0.5 MG TAB PO SCH ×2 (10:31→22:08)
[2020-10-24] MEDS: LEVOTHYROXINE 50 MCG TAB PO SCH (10:31)
[2020-10-24] MEDS: buPROPion SR 150 MG TABLET.ER PO SCH ×2 (10:32→22:09)
--- NOTE | 2020-10-24 13:45 | P.PN ---
Subjective Progress Note Date: 10/24/20 Sofía Leslie is a 74 year-old female patient of Dr Jacob who presented to [facility] ER with a chief complaint of slurred speech, patient has a known history of bipolar disorder, schizophrenia, she is a poor historian her baseline mental status and speech pattern is not clear however caregivers. There is a change from her baseline and she was brought into emergency room to be evaluated for possible stroke. Patient was evaluated in the emergency room her temperature was 97.9 pulse 75 respiration 18 blood pressure 111/55 pulse ox 95% on room air, subsequently dropped to 83% on room air. Her laboratory data was significant for a white blood count of 26.8 sodium of 125 potassium of 6.0 and evidence of elevated AST at 101 and evidence of urinary tract infection. Patient underwent a computed tomography scan of the brain without contrast in the emergency room that revealed age-related atrophic and chronic small vessel disease changes without acute intracranial bleeding she also underwent computed tomography scan of the cervical spine due to recent fall there was no evidence for acute fracture or subluxation of the cervical spine CT angiogram of the brain did not reveal any significant abnormality in the [place] CT angiogram of the neck revealed 80% stenosis on the left internal carotid artery chest x-ray was positive for left upper lobe infiltrate correlate for pneumonia. EKG revealed accelerated junctional rhythm with nonspecific T-wave abnormality. Patient was started on IV antibiotic for UTI and pneumonia. She was started on IV fluid for severe hyponatremia she was admitted to medical floor infectious disease consultation and cardiology consultation were requested. On 10/23/2020 patient was seen and examined on the medical floor she is alert, slightly confused in no apparent distress there is no fever or chills no headache or dizziness no chest pain no shortness of breath no cough no nausea or vomiting no abdominal pain no diarrhea and no urinary symptoms. On 10/24/2020 patient was seen and examined on the medical floor she is alert confused in no apparent distress there is no fever or chills no headache or dizziness no chest pain no shortness of breath no cough no nausea or vomiting no abdominal pain no diarrhea and no urinary symptoms, patient is being treated for pneumonia, urinary tract infection, mental status changes she seems to be related to metabolic encephalopathy related to her infections, case was discussed with neurology today Dr. Robbins no evidence of acute CVA at this point. Objective - Vital Signs Vital signs: Vital Signs Temp 97.9 F 10/24/20 10:29 Pulse 68 10/24/20 10:29 Resp 20 10/24/20 10:29 BP 126/61 10/24/20 10:29 Pulse Ox 90 L 10/24/20 10:29 Intake & Output 10/23/20 10/24/20 10/24/20 18:59 06:59 18:59 Intake Total 560 0 Output Total 400 Balance 560 -400 0 Weight 75.5 kg Intake: IV 360 Sodium Chloride 0.9% 1, 160 000 ml @ 80 mls/hr IV . [id number] [facility] Rx#:[id number] Oral 200 0 Output: Urine 400 Other: Voiding Method Incontinent # Voids 3 1 - Exam In general patient is alert slightly confused in no apparent distress HEENT head normocephalic and atraumatic Neck is supple no JVD no goiter no lymphadenopathy Chest exam reveals a few scattered rhonchi no wheezing Cardiac exam reveals regular heart sounds S1 and S2 no gallops no murmurs Abdomen is soft nontender no organomegaly with normal bowel sounds Extremity exam reveals no edema no cyanosis or clubbing Neurological examination reveals no gross focal deficit - Labs CBC & Chem 7: 10/24/20 08:18 10/24/20 08:18 Labs: Abnormal Lab Results - Last 24 Hours (Table) 10/24/20 10/24/20 Range/Units 08:18 08:18 RBC 3.33 L (3.80-5.40) m/uL Hgb 9.9 L (11.4-16.0) gm/dL Hct 30.3 L (34.0-46.0) % RDW 15.9 H (11.5-15.5) % Lymphocytes # 0.9 L (1.0-4.8) k/uL Sodium 133 L (137-145) mmol/L Potassium 3.4 L (3.5-5.1) mmol/L Calcium 8.1 L (8.4-10.2) mg/dL AST 60 H (14-36) U/L ALT 40 H (4-34) U/L Total Protein 5.7 L (6.3-8.2) g/dL Albumin 2.5 L (3.5-5.0) g/dL Microbiology - Last 24 Hours (Table) 10/21/20 12:00 Urine Culture - Final Urine,Catheterized Enterococcus faecalis 10/21/20 13:00 Blood Culture - Preliminary Blood No Growth after 48 hours Assessment and Plan Plan: 1. Left upper lobe pneumonia 2. Urinary tract infection 3. Hyponatremia 4. Hyperkalemia 5. Possible worsening mental status changes and slurred speech Neurology consultation was requested. 6. Slight elevation in liver enzymes will check liver ultrasound. At this time patient was started on IV Rocephin and oral Zithromax Medication and labs were reviewed and reordered Will follow during this admission for medical management
--- NOTE | 2020-10-24 14:11 | P.PN ---
Subjective Progress Note Date: 10/24/20 HISTORY OF PRESENT ILLNESS: Patient underwent carotid angiogram that revealed only mild disease involving the left internal carotid artery. Patient also had stenting of both iliac arteries. Patient examined at the bedside. She denies chest pain or pressure. Denies shortness of breath. PHYSICAL EXAM: VITAL SIGNS: Reviewed. GENERAL: Well-developed in no acute distress. NECK: Supple. No JVD or thyromegaly LUNGS: Respirations even and unlabored. Lungs diminished. HEART: Regular rate and rhythm. S1 and S2 heard. EXTREMITIES: Normal range of motion. No clubbing or cyanosis. Peripheral pulses intact. No lower extremity edema. Right femoral site without hematoma. Pulse noted. ASSESSMENT: #1 mental status changes with associated slurring of speech, possible TIA/CVA #2 left carotid stenosis, 80% per CTA, s/p angiogram revealing mild disease (20%) #3 left upper lobe pneumonia #4 hyponatremia #5 hyperkalemia #6 elevated liver enzymes PLAN: Continue current cardiac medications Neurology following Further recommendations pending patient course Nurse practitioner note has been reviewed by physician. Signing provider agrees with the documented findings, assessment, and plan of care. Objective - Vital Signs Vital signs: Vital Signs Temp 97.9 F 10/24/20 10:29 Pulse 84 10/24/20 13:55 Resp 18 10/24/20 12:45 BP 163/70 10/24/20 12:45 Pulse Ox 91 L 10/24/20 12:45 Intake & Output 10/23/20 10/24/20 10/24/20 18:59 06:59 18:59 Intake Total 560 0 Output Total 400 Balance 560 -400 0 Weight 75.5 kg Intake: IV 360 Sodium Chloride 0.9% 1, 160 000 ml @ 80 mls/hr IV . [id number] [facility] Rx#:[id number] Oral 200 0 Output: Urine 400 Other: Voiding Method Incontinent # Voids 3 1 - Labs CBC & Chem 7: 10/24/20 08:18 10/24/20 08:18 Labs: Abnormal Lab Results - Last 24 Hours (Table) 10/24/20 10/24/20 Range/Units 08:18 08:18 RBC 3.33 L (3.80-5.40) m/uL Hgb 9.9 L (11.4-16.0) gm/dL Hct 30.3 L (34.0-46.0) % RDW 15.9 H (11.5-15.5) % Lymphocytes # 0.9 L (1.0-4.8) k/uL Sodium 133 L (137-145) mmol/L Potassium 3.4 L (3.5-5.1) mmol/L Calcium 8.1 L (8.4-10.2) mg/dL AST 60 H (14-36) U/L ALT 40 H (4-34) U/L Total Protein 5.7 L (6.3-8.2) g/dL Albumin 2.5 L (3.5-5.0) g/dL Microbiology - Last 24 Hours (Table) 10/21/20 12:00 Urine Culture - Final Urine,Catheterized Enterococcus faecalis 10/21/20 13:00 Blood Culture - Preliminary Blood No Growth after 48 hours
--- NOTE | 2020-10-24 17:57 | P.PN ---
Subjective Progress Note Date: 10/24/20 Patient was seen at bedside and she seems much better today compared to yesterday. She is verbalizing better. Patient stated that she's doing well and she kept on saying I would like to go home. She denies of any weakness any numbness. As of any headache any nausea, any visual disturbance. Objective - Vital Signs Vital signs: Vital Signs Temp 98.7 F 10/24/20 16:08 Pulse 82 10/24/20 16:08 Resp 16 10/24/20 16:08 BP 129/63 10/24/20 16:08 Pulse Ox 96 10/24/20 16:08 Intake & Output 10/23/20 10/24/20 10/24/20 18:59 06:59 18:59 Intake Total 560 0 Output Total 400 Balance 560 -400 0 Weight 75.5 kg Intake: IV 360 Sodium Chloride 0.9% 1, 160 000 ml @ 80 mls/hr IV . [id number] [facility] Rx#:[id number] Oral 200 0 Output: Urine 400 Other: Voiding Method Incontinent Incontinent # Voids 3 1 2 # Bowel Movements 1 - Exam GENERAL: The patient is lying in bed and is not in acute distress. Patient seemed restless. CHEST: The heart rate is regular rate rhythm. No murmurs to auscultation. NEUROLOGICAL: Higher mental function: The patient is awake, alert, oriented to self, place and time. Patient is following simple commands. No aphasia or neglect. Cranial nerves: The pupils are round, equal (3-4mm) and reactive to light. Visual conley are full to confrontation throughout. Extraocular movement is intact no nystagmus is noted. Facial sensation is normal to touch throughout. The facial strength is normal throughout. Hearing is slightly decreased to hand rub bilaterally. Tongue is midline and moved [id number] without any difficulty. No dysarthria is noted. Shoulder shrug is normal bilaterally. Motor: Gait is deferred. The strength is 5-/5 throughout.. Normal tone and bulk. Cerebellum: Normal finger to nose bilaterally. Sensation: Sensation is normal to touch throughout. Reflexes (right/left):2+ throughout. Plantars are downgoing bilaterally. - Labs CBC & Chem 7: 10/24/20 08:18 10/24/20 08:18 Labs: Abnormal Lab Results - Last 24 Hours (Table) 10/24/20 10/24/20 Range/Units 08:18 08:18 RBC 3.33 L (3.80-5.40) m/uL Hgb 9.9 L (11.4-16.0) gm/dL Hct 30.3 L (34.0-46.0) % RDW 15.9 H (11.5-15.5) % Lymphocytes # 0.9 L (1.0-4.8) k/uL Sodium 133 L (137-145) mmol/L Potassium 3.4 L (3.5-5.1) mmol/L Calcium 8.1 L (8.4-10.2) mg/dL AST 60 H (14-36) U/L ALT 40 H (4-34) U/L Total Protein 5.7 L (6.3-8.2) g/dL Albumin 2.5 L (3.5-5.0) g/dL Microbiology - Last 24 Hours (Table) 10/21/20 13:00 Blood Culture - Preliminary Blood No Growth after 72 hours 10/21/20 12:00 Urine Culture - Final Urine,Catheterized Enterococcus faecalis Assessment and Plan Assessment: This is a 74-year-old woman with multiple medical problems who presented to [facility] ED on 10/21/2020 for altered mental status. Patient is a poor historian. Per medical record according to the nursing staff the patient was at bedside sitting on the bed but seemed to be more altered the today upon waking up on 10/21/2020 and concern for slurring of speech. Unclear exactly when the symptoms were started. She does have memory issues about her mentation is change from her baseline. Slurring speech and on examination there is concern for aphasia (predominately broca): Possibly from underlying toxic-metabolic encephalopathy. Transient is chemic attack is a possibility but I believe less likely. Toxic metabolic encephalopathy (urinary tract infection and the chronic hyponatremia)--improving Left internal carotid stenosis (per CTA 80%) but upon diagnostic cerebral angiogram it was 20% stenosis per Dr. Colindres (he documented mild disease) Chronic hyponatremia (125 Baseline sodium is a runs from 126 to 132) likely due to medication use Urinary tract infection Diabetes mellitus Hypertension Bipolar, Schizophrenia Plan: Repeat CT of the head 10/23/20 shows no acute intracranial hemorrhage or midline shift. 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 No significant interval change. Patient is currently on Lipitor 10 mg daily and will increase to 40 mg daily. I started the patient on the aspirin 81 mg and cardiology started the patient on Plavix 75 mg I think will be suitable. Patient to continue dual antiplatelets for 21 days then the to the discontinue Plavix continue aspirin permanently. Again the patient had diagnostic cerebral angiogram and there is no significant carotid stenosis over the left ICA was mild therefore there is no intervention that was needed. Regarding that junctional rhythm Dr. Colindres was not convinced off any arrhythmia such as A. fib or atrial flutter. Patient had the lipid profile on 05/29/2020: Triglyceride is less than 50, cholesterol is 125, LDL there is no value over the LDL, HDL 65. I'll repeat the lipid profile. 2-D echo: Reported as mild concentric left ventricular hypertrophy. Ejection fraction of 55-60%. Left atrium is severely dilated. Moderate to severe tricuspid regurgitation is present. There is severe pulmonary hypertension. Continue physical therapy, occupational therapy and BOTTLING LINE ATTENDANT. TSH on 05/29/2020 is normal with a value of 2.770 with a free T4 of 1.30 both are normal. There is no reason to repeat this. Hemoglobin A1c is 6.1 on 05/29/2020 and there is no need to repeat this again. vitamin B12: 982 and folate level: 1274 both above normal limit which is ok. She is on gabapentin 300 mg 3 times a day as home bed and that was restarted by the primary team. I'll defer the management of hyponatremia to the primary team and recommend correcting the slowly. I'll defer the management of severe pulmonary hypertension to the primary team. Urine culture: Enteroccous faecalis. Infection disease is on board. I attempted to contact patient's son via phone but received a voice message. The plan was discussed with the primary team. Arnaldo Robbins M.D. Neuro-hospitalist Time with Patient: Less than 30
[2020-10-24] MEDS: ATORVASTATIN 40 MG TAB PO SCH (20:09)
[2020-10-25] MEDS: AMPICILLIN-SULBACTAM 3 GM in SODIUM CHLORIDE 0.9% 100 ML IVPB SCH ×4 (06:00→23:03)
--- NOTE | 2020-10-25 06:10 | PN ---
PROGRESS NOTE DATE OF SERVICE: 10/24/2020 REASON FOR FOLLOWUP: UTI and pneumonia. INTERVAL HISTORY: The patient is currently afebrile. The patient is breathing comfortably. No chest pain. Occasional cough. No abdominal pain or any diarrhea. PHYSICAL EXAMINATION: Blood pressure is 131/64 with a pulse of 78, temperature 98.7. She is 96% on 4 L nasal cannula. General description is an elderly female up in the chair in no distress. RESPIRATORY SYSTEM: Unlabored breathing, decreased breath sounds at the bases. No wheeze. HEART: S1, S2. Regular rate and rhythm. ABDOMEN: Soft, no tenderness. LABS: Hemoglobin 9.9, white count 8.7, BUN of 9, creatinine 0.53. DIAGNOSTIC IMPRESSION AND PLAN: The patient with Enterococcus faecalis urinary tract infection and pneumonia. Patient is covered with Unasyn. Patient white count normalized. To continue with current antibiotics. Finish therapy with the oral antibiotics and continue supportive care. MMODL / IJN: [id number] /
[2020-10-25] MEDS: IPRATROPIUM-ALBUTEROL 3 ML NEB INHALATION PRN (08:44)
[2020-10-25] MEDS: SYMBICORT 80-4.5 MCG INHALER INHALATION SCH ×2 (08:44→21:05)
[2020-10-25] MEDS: IPRATROPIUM 0.5 MG/2.5 ML NEBU INHALATION SCH ×4 (08:44→21:03)
[2020-10-25] MEDS: ASPIRIN 81 MG PO SCH (09:45)
[2020-10-25] MEDS: DOCUSATE 100 MG CAP PO SCH ×2 (09:46→20:24)
[2020-10-25] MEDS: BACLOFEN 10 MG TAB PO SCH ×2 (09:46→20:25)
[2020-10-25] MEDS: metFORMIN 500 MG TAB PO SCH ×2 (09:46→20:25)
[2020-10-25] MEDS: LEVOTHYROXINE 50 MCG TAB PO SCH (09:46)
[2020-10-25] MEDS: CLOPIDOGREL 75 MG TAB PO SCH (09:47)
[2020-10-25] MEDS: GABAPENTIN 300 MG CAP PO SCH ×3 (09:47→20:25)
[2020-10-25] MEDS: buPROPion SR 150 MG TABLET.ER PO SCH ×2 (09:48→20:25)
[2020-10-25] MEDS: polyethylene glycoL 3350 17 GM POWD.PACK PO SCH (09:48)
[2020-10-25] MEDS: guaiFENesin SYRUP 100MG/5ML 200 MG/10 ML CUP PO SCH ×2 (09:48→20:24)
[2020-10-25] MEDS: risperiDONE 0.5 MG TAB PO SCH ×2 (09:48→20:25)
--- NOTE | 2020-10-25 11:41 | US ---
EXAMINATION TYPE: US liver DATE OF EXAM: 10/25/2020 COMPARISON: NONE CLINICAL HISTORY: elevated liver enzymes. EXAM MEASUREMENTS: Liver Length: 16.8 cm Gallbladder Wall: 0.1 cm CBD: 1.0 cm Right Kidney: 11.4 x 4.7 x 4.7 cm Pancreas: Normal. Liver: Normal. Gallbladder: Normal. No cholelithiasis, gallbladder wall thickening, or pericholecystic edema. House Wirer reports negative sonographic Finnegan sign. CBD: Dilated with no obvious obstruction. Right Kidney: Normal. IMPRESSION: 1. Dilated common bile duct up to 1.0 cm. No cholelithiasis or visualized choledocholithiasis. Recomm end MRCP for further characterization. 2. No focal liver abnormality.
--- NOTE | 2020-10-25 11:44 | P.PN ---
Subjective Progress Note Date: 10/25/20 The patient was seen at bedside and she said that she's doing well. Denies of any new weakness, numbness or visual disturbance. According to the patient the her slurring that is noticed by our team is her b aseline. She feels like she is doing well. Objective - Vital Signs Vital signs: Vital Signs Temp 98.1 F 10/25/20 08:00 Pulse 80 10/25/20 08:55 Resp 18 10/25/20 08:00 BP 155/69 10/25/20 08:00 Pulse Ox 94 L 10/25/20 08:00 Intake & Output 10/24/20 10/25/20 10/25/20 18:59 06:59 18:59 Intake Total 120 240 Balance 120 240 Weight 46 kg Intake: Oral 120 240 Other: Voiding Method Incontinent Incontinent # Voids 2 1 # Bowel Movements 1 - Exam GENERAL: The patient is lying in bed and is not in acute distress. NEUROLOGICAL: Higher mental function: The patient is awake, alert, oriented to self, place and time. Patient is following simple commands. No aphasia or neglect. Cranial nerves: The pupils are round, equal (3-4mm) and reactive to light. Visual conley are full to confrontation throughout. Extraocular movement is intact no nystagmus is noted. Facial sensation is normal to touch throughout. The facial strength is normal throughout. Hearing is slightly decreased to hand rub bilaterally. Tongue is midline and moved [id number] without any difficulty. Mild dysarthria is noted (per patient this is her baseline). Shoulder shrug is normal bilaterally. Motor: Gait is deferred. The strength is 5/5 throughout.. Normal tone and bulk. Cerebellum: Normal finger to nose bilaterally. Sensation: Sensation is normal to touch throughout. Reflexes (right/left):2+ throughout. Plantars are downgoing bilaterally. - Labs CBC & Chem 7: 10/24/20 08:18 10/24/20 08:18 Labs: Microbiology - Last 24 Hours (Table) 10/21/20 13:00 Blood Culture - Preliminary Blood No Growth after 72 hours Assessment and Plan Assessment: This is a 74-year-old woman with multiple medical problems who presented to [facility] ED on 10/21/2020 for altered mental status. Patient is a p oor historian. Per medical record according to the nursing staff the patient was at bedside sitting on the bed but seemed to be more altered the today upon waking up on 10/21/2020 and concern for slurring of speech. Unclear exactly when the symptoms were started. She does have memory issues about her mentation is change from her baseline. * Toxic metabolic encephalopathy (urinary tract infection and the chronic hyponatremia)--improving * Slurring speech and on examination there is concern for aphasia (predominately broca): Possibly from underlying toxic-metabolic encephalopathy. Transient ischemic attack is a possibility but I believe less likely. Aphasia resolved. While mild dysarthria patient said this is her baseline. * Left internal carotid stenosis (per CTA 80%) but upon diagnostic cerebral angiogram it was 20% stenosis per Dr. Colindres (he documented mild disease) * Chronic hyponatremia (125 Baseline sodium is a runs from 126 to 132) likely due to medication use--improving. Last Na 133. * Urinary tract infection * Diabetes mellitus * Hypertension * Bipolar * Schizophrenia Plan: Repeat CT of the head 10/23/20 shows no acute intracranial hemorrhage or midline shift. 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 No significant interval change. Patient is currently on Lipitor 10 mg daily and will increase to 40 mg daily. I started the patient on the aspirin 81 mg and cardiology started the patient on Plavix 75 mg I think will be suitable. Patient to continue dual antiplatelets for 21 days then the to the discontinue Plavix continue aspirin permanently. Again the patient had diagnostic cerebral angiogram and there is no significant carotid stenosis over the left ICA was mild therefore there is no intervention that was needed. Regarding that junctional rhythm Dr. Colindres was not convinced off any arrhythmia such as A. fib or atrial flutter. Patient had the lipid profile on 05/29/2020: Triglyceride is less than 50, cholesterol is 125, LDL there is no value over the LDL, HDL 65. I'll repeat the lipid profile. 2-D echo: Reported as mild concentric left ventricular hypertrophy. Ejection fraction of 55-60%. Left atrium is severely dilated. Moderate to severe tricuspid regurgitation is present. There is severe pulmonary hypertension. Continue physical therapy, occupational therapy and [employer]. TSH on 05/29/2020 is normal with a value of 2.770 with a free T4 of 1.30 both are normal. There is no reason to repeat this. Hemoglobin A1c is 6.1 on 05/29/2020 and there is no need to repeat this again. vitamin B12: 982 and folate level: 1274 both above normal limit which is ok. She is on gabapentin 300 mg 3 times a day as home bed and that was restarted by the primary team. I'll defer the management of hyponatremia to the primary team and recommend correcting the slowly. I'll defer the management of severe pulmonary hypertension to the primary team. Urine culture: Enteroccous faecalis. Infection disease is on board. I attempted to contact patient's son via phone but received a voice message. Patient needs to follow-up with neurologist as outpatient within 2-3 weeks upon discharge. No further work-up is needed. Neurology will sign off. Please reconsult if needed. Arnaldo Robbins M.D. Neuro-hospitalist Time with Patient: Less than 30
--- NOTE | 2020-10-25 13:19 | P.PN ---
Subjective Progress Note Date: 10/25/20 HISTORY OF PRESENT ILLNESS: Patient underwent carotid angiogram that revealed only mild disease involving the left internal carotid artery. Patient also had stenting of both iliac arteries. Patient examined at the bedside. She denies chest pain or pressure. Denies shortness of breath. PHYSICAL EXAM: VITAL SIGNS: Reviewed. GENERAL: Well-developed in no acute distress. NECK: Supple. No JVD or thyromegaly LUNGS: Respirations even and unlabored. Lungs diminished. HEART: Regular rate and rhythm. S1 and S2 heard. EXTREMITIES: Normal range of motion. No clubbing or cyanosis. Peripheral pulses intact. No lower extremity edema. Right femoral site without hematoma. Pulse noted. ASSESSMENT: #1 mental status changes with associated slurring of speech, possible TIA/CVA #2 left carotid stenosis, 80% per CTA, s/p angiogram revealing mild disease (20%) #3 left upper lobe pneumonia #4 hyponatremia #5 hyperkalemia #6 elevated liver enzymes PLAN: Continue current cardiac medications Neurology following Patient is stable for discharge from a cardiac perspective. Will defer to internal medicine We will follow on an as-needed basis. Please call with questions or concerns Nurse practitioner note has been reviewed by physician. Signing provider agrees with the documented findings, assessment, and plan of care. Objective - Vital Signs Vital signs: Vital Signs Temp 98.1 F 10/25/20 08:00 Pulse 80 10/25/20 08:55 Resp 18 10/25/20 08:00 BP 155/69 10/25/20 08:00 Pulse Ox 94 L 10/25/20 08:00 Intake & Output 10/24/20 10/25/20 10/25/20 18:59 06:59 18:59 Intake Total 120 240 Balance 120 240 Weight 46 kg Intake: Oral 120 240 Other: Voiding Method Incontinent Incontinent # Voids 2 1 # Bowel Movements 1 - Labs CBC & Chem 7: 10/24/20 08:18 10/24/20 08:18 Labs: Microbiology - Last 24 Hours (Table) 10/21/20 13:00 Blood Culture - Preliminary Blood No Growth after 72 hours
[2020-10-25 13:22] VITALS: BMI 16.3
[2020-10-25] MEDS: SODIUM CHLORIDE 0.9% 1,000 ML IV SCH (16:55)
[2020-10-25 20:23] LABS: Glucose,Whole Blood 149 mg/dL (75-99)
[2020-10-25] MEDS: ATORVASTATIN 40 MG TAB PO SCH (20:25)
--- NOTE | 2020-10-25 22:13 | PN ---
PROGRESS NOTE DATE OF SERVICE: 10/25/2020 REASON FOR FOLLOWUP: Pneumonia and urinary tract infection. INTERVAL HISTORY: The patient is currently afebrile. Still complaining of feeling weak and tired; no energy. No chest pain. She did have a cough but not bringing up any sputum. No vomiting. No abdominal pain or diarrhea. PHYSICAL EXAMINATION: Blood pressure 161/77 with a pulse of 69, temperature 98.9. She is 94% on 4 L nasal cannula. General description is an elderly female up in the chair in no distress. RESPIRATORY SYSTEM: Unlabored breathing with some coarse breath sounds at the bases. No wheeze. HEART: S1, S2. Regular rate and rhythm. ABDOMEN: Soft. No tenderness. LABS: Hemoglobin 9.9, white count 8.7, BUN of 9, creatinine 0.53. Urine is enterococcus. Blood culture negative. No sputum collected. DIAGNOSTIC IMPRESSION AND PLAN: Patient admitted to hospital with generalized weakness. No new fever. Concern for UTI plus/minus pneumonia. The patient is currently covered with Unasyn with overall resolution of her fever, and white count normalized. To continue to finish therapy with oral Augmentin. Continue with supportive care. MMODL / IJN: [id number] /
[2020-10-25] MEDS: ACETAMINOPHEN TAB 500 MG TAB PO PRN (22:38)
[2020-10-26] MEDS: AMPICILLIN-SULBACTAM 3 GM in SODIUM CHLORIDE 0.9% 100 ML IVPB SCH ×3 (05:18→18:08)
[2020-10-26] MEDS: SODIUM CHLORIDE 0.9% 1,000 ML IV SCH ×2 (05:19→21:19)
[2020-10-26 07:37] LABS: Basophils % (A) 1 %; Eosinophils # (A) 0.1 k/uL (0-0.7); Eosinophils % (A) 2 %; HCT 28.7 % (34.0-46.0); HGB 9.5 gm/dL (11.4-16.0); Lymphocytes % (A) 11 %; MCH 30.2 pg (25.0-35.0); MCV 91.3 fL (80.0-100.0); Monocytes # (A) 0.7 k/uL (0-1.0); Monocytes % (A) 8 %; Neutrophils % (A) 78 %; Platelet Count 277 k/uL (150-450); RBC 3.15 m/uL (3.80-5.40); RDW 15.3 % (11.5-15.5)
[2020-10-26 07:41] LABS: ALT 36 U/L (4-34); AST 34 U/L (14-36); African American GFR (CKD) >90 (>60 ml/min/1.73 sqM); Albumin 2.4 g/dL (3.5-5.0); Alkaline Phosphatase 63 U/L (38-126); Anion Gap 2 mmol/L; Blood Urea Nitrogen 8 mg/dL (7-17); Calcium 8.3 mg/dL (8.4-10.2); Carbon Dioxide 30 mmol/L (22-30); Chloride 102 mmol/L (98-107); Glucose 93 mg/dL (74-99); Non-African American GFR(CKD) >90 (>60 ml/min/1.73 sqM); Potassium 3.7 mmol/L (3.5-5.1); Sodium 134 mmol/L (137-145); Total Bilirubin 0.6 mg/dL (0.2-1.3); Total Protein 5.5 g/dL (6.3-8.2)
[2020-10-26] MEDS: guaiFENesin SYRUP 100MG/5ML 200 MG/10 ML CUP PO SCH ×2 (07:47→20:23)
[2020-10-26] MEDS: polyethylene glycoL 3350 17 GM POWD.PACK PO SCH (07:47)
[2020-10-26] MEDS: DOCUSATE 100 MG CAP PO SCH ×2 (07:48→20:22)
[2020-10-26] MEDS: metFORMIN 500 MG TAB PO SCH ×2 (07:48→20:22)
[2020-10-26] MEDS: buPROPion SR 150 MG TABLET.ER PO SCH ×2 (07:48→20:22)
[2020-10-26] MEDS: GABAPENTIN 300 MG CAP PO SCH ×3 (07:48→20:23)
[2020-10-26] MEDS: BACLOFEN 10 MG TAB PO SCH ×2 (07:48→20:22)
[2020-10-26] MEDS: LEVOTHYROXINE 50 MCG TAB PO SCH (07:49)
[2020-10-26] MEDS: CLOPIDOGREL 75 MG TAB PO SCH (07:50)
[2020-10-26] MEDS: ASPIRIN 81 MG PO SCH (07:50)
[2020-10-26] MEDS: risperiDONE 0.5 MG TAB PO SCH ×2 (07:50→20:23)
[2020-10-26] MEDS: SYMBICORT 80-4.5 MCG INHALER INHALATION SCH ×3 (08:35→20:38)
[2020-10-26] MEDS: IPRATROPIUM 0.5 MG/2.5 ML NEBU INHALATION SCH ×4 (08:36→20:20)
--- NOTE | 2020-10-26 13:06 | P.PN ---
Subjective Progress Note Date: 10/25/20 Sofía Leslie is a 74 year-old female patient of Dr Jacob who presented to [facility] ER with a chief complaint of slurred speech, patient has a known history of bipolar disorder, schizophrenia, she is a poor historian her baseline mental status and speech pattern is not clear however caregivers. There is a change from her baseline and she was brought into emergency room to be evaluated for possible stroke. Patient was evaluated in the emergency room her temperature was 97.9 pulse 75 respiration 18 blood pressure 111/55 pulse ox 95% on room air, subsequently dropped to 83% on room air. Her laboratory data was significant for a white blood count of 26.8 sodium of 125 potassium of 6.0 and evidence of elevated AST at 101 and evidence of urinary tract infection. Patient underwent a computed tomography scan of the brain without contrast in the emergency room that revealed age-related atrophic and chronic small vessel disease changes without acute intracranial bleeding she also underwent computed tomography scan of the cervical spine due to recent fall there was no evidence for acute fracture or subluxation of the cervical spine CT angiogram of the brain did not reveal any significant abnormality in the [place] CT angiogram of the neck revealed 80% stenosis on the left internal carotid artery chest x-ray was positive for left upper lobe infiltrate correlate for pneumonia. EKG revealed accelerated junctional rhythm with nonspecific T-wave abnormality. Patient was started on IV antibiotic for UTI and pneumonia. She was started on IV fluid for severe hyponatremia she was admitted to medical floor infectious disease consultation and cardiology consultation were requested. On 10/23/2020 patient was seen and examined on the medical floor she is alert, slightly confused in no apparent distress there is no fever or chills no headache or dizziness no chest pain no shortness of breath no cough no nausea or vomiting no abdominal pain no diarrhea and no urinary symptoms. On 10/24/2020 patient was seen and examined on the medical floor she is alert confused in no apparent distress there is no fever or chills no headache or dizziness no chest pain no shortness of breath no cough no nausea or vomiting no abdominal pain no diarrhea and no urinary symptoms, patient is being treated for pneumonia, urinary tract infection, mental status changes she seems to be related to metabolic encephalopathy related to her infections, case was discussed with neurology today Dr. Robbins no evidence of acute CVA at this point. On 10/25/2020 patient was seen and examined on the medical floor she is alert confused in no distress she is complaining of cough her oxygen saturation is borderline with 2 L of nasal cannula, there is no fever or chills no headache or dizziness no chest pain no shortness of breath no nausea or vomiting no abdominal pain no diarrhea no blood in the stools no burning with urination no frequency or urgency and no hematuria. Liver enzymes are elevated liver ultrasound reveals enlarged common bile duct gastroenterology consultation re quested. Objective - Vital Signs Vital signs: Vital Signs Temp 98.1 F 10/25/20 08:00 Pulse 96 10/25/20 12:00 Resp 18 10/25/20 12:00 BP 148/79 10/25/20 12:00 Pulse Ox 95 10/25/20 12:00 Intake & Output 10/24/20 10/25/20 10/25/20 18:59 06:59 18:59 Intake Total 120 240 100 Balance 120 240 100 Weight 46 kg 46 kg Intake: IV 100 Ampicillin-Sulbactam 3 gm 100 In Sodium Chloride 0.9% 100 ml @ 200 mls/hr IVPB Q6HR [facility] Rx#:[id number] Oral 120 240 Other: Voiding Method Incontinent Incontinent Incontinent # Voids 2 1 # Bowel Movements 1 - Exam In general patient is alert slightly confused in no apparent distress HEENT head normocephalic and atraumatic Neck is supple no JVD no goiter no lymphadenopathy Chest exam reveals a few scattered rhonchi no wheezing Cardiac exam reveals regular heart sounds S1 and S2 no gallops no murmurs Abdomen is soft nontender no organomegaly with normal bowel sounds Extremity exam reveals no edema no cyanosis or clubbing Neurological examination reveals no gross focal deficit - Labs CBC & Chem 7: 10/26/20 06:54 10/26/20 06:54 Labs: Microbiology - Last 24 Hours (Table) 10/21/20 13:00 Blood Culture - Preliminary Blood No Growth after 96 hours Assessment and Plan Plan: 1. Left upper lobe pneumonia maintained on IV antibiotic infectious disease consultation requested 2. Urinary tract infection 3. Hyponatremia 4. Hyperkalemia 5. Possible worsening mental status changes and slurred speech Neurology consultation was requested. 6. Elevated liver enzymes with abnormal liver ultrasound showing dilated common bile duct gastroenterology consultation requested At this time patient was started on IV Rocephin and oral Zithromax Medication and labs were reviewed and reordered Will follow during this admission for medical management
--- NOTE | 2020-10-26 13:07 | P.PN ---
Subjective Progress Note Date: 10/26/20 Sofía Leslie is a 74 year-old female patient of Dr Jacob who presented to [facility] ER with a chief complaint of slurred speech, patient has a known history of bipolar disorder, schizophrenia, she is a poor historian her baseline mental status and speech pattern is not clear however caregivers. There is a change from her baseline and she was brought into emergency room to be evaluated for possible stroke. Patient was evaluated in the emergency room her temperature was 97.9 pulse 75 respiration 18 blood pressure 111/55 pulse ox 95% on room air, subsequently dropped to 83% on room air. Her laboratory data was significant for a white blood count of 26.8 sodium of 125 potassium of 6.0 and evidence of elevated AST at 101 and evidence of urinary tract infection. Patient underwent a computed tomography scan of the brain without contrast in the emergency room that revealed age-related atrophic and chronic small vessel disease changes without acute intracranial bleeding she also underwent computed tomography scan of the cervical spine due to recent fall there was no evidence for acute fracture or subluxation of the cervical spine CT angiogram of the brain did not reveal any significant abnormality in the [place] CT angiogram of the neck revealed 80% stenosis on the left internal carotid artery chest x-ray was positive for left upper lobe infiltrate correlate for pneumonia. EKG revealed accelerated junctional rhythm with nonspecific T-wave abnormality. Patient was started on IV antibiotic for UTI and pneumonia. She was started on IV fluid for severe hyponatremia she was admitted to medical floor infectious disease consultation and cardiology consultation were requested. On 10/23/2020 patient was seen and examined on the medical floor she is alert, slightly confused in no apparent distress there is no fever or chills no headache or dizziness no chest pain no shortness of breath no cough no nausea or vomiting no abdominal pain no diarrhea and no urinary symptoms. On 10/24/2020 patient was seen and examined on the medical floor she is alert confused in no apparent distress there is no fever or chills no headache or dizziness no chest pain no shortness of breath no cough no nausea or vomiting no abdominal pain no diarrhea and no urinary symptoms, patient is being treated for pneumonia, urinary tract infection, mental status changes she seems to be related to metabolic encephalopathy related to her infections, case was discussed with neurology today Dr. Robbins no evidence of acute CVA at this point. On 10/25/2020 patient was seen and examined on the medical floor she is alert confused in no distress she is complaining of cough her oxygen saturation is borderline with 2 L of nasal cannula, there is no fever or chills no headache or dizziness no chest pain no shortness of breath no nausea or vomiting no abdominal pain no diarrhea no blood in the stools no burning with urination no frequency or urgency and no hematuria. Liver enzymes are elevated liver ultrasound reveals enlarged common bile duct gastroenterology consultation re quested. On 10/26/2020 patient was seen and examined on the medical floor she is alert and oriented 3 in no apparent distress today she is maintained on oxygen 3 L nasal cannula her pulse ox is 89 at this time will repeat chest x-ray will repeat Covid 19 testing there is no fever or chills no headache or dizziness no chest pain no shortness of breath patient is still having cough no nausea or vo miting no abdominal pain no diarrhea no blood in the stools no burning with urination no frequency or urgency no hematuria Objective - Vital Signs Vital signs: Vital Signs Temp 98.2 F 10/26/20 08:25 Pulse 80 10/26/20 08:46 Resp 16 10/26/20 08:25 BP 148/69 10/26/20 08:25 Pulse Ox 89 L 10/26/20 08:25 Intake & Output 10/25/20 10/26/20 10/26/20 18:59 06:59 18:59 Intake Total 672 Balance 672 Weight 46 kg Intake: IV 200 Ampicillin-Sulbactam 3 gm 200 In Sodium Chloride 0.9% 100 ml @ 200 mls/hr IVPB Q6HR [facility] Rx#:[id number] Oral 472 Other: Voiding Method Incontinent Incontinent Incontinent # Voids 2 - Exam In general patient is alert slightly confused in no apparent distress HEENT head normocephalic and atraumatic Neck is supple no JVD no goiter no lymphadenopathy Chest exam reveals a few scattered rhonchi no wheezing Cardiac exam reveals regular heart sounds S1 and S2 no gallops no murmurs Abdomen is soft nontender no organomegaly with normal bowel sounds Extremity exam reveals no edema no cyanosis or clubbing Neurological examination reveals no gross focal deficit - Labs CBC & Chem 7: 10/26/20 06:54 10/26/20 06:54 Labs: Abnormal Lab Results - Last 24 Hours (Table) 10/25/20 10/26/20 10/26/20 Range/Units 20:22 06:54 06:54 RBC 3.15 L (3.80-5.40) m/uL Hgb 9.5 L (11.4-16.0) gm/dL Hct 28.7 L (34.0-46.0) % Sodium 134 L (137-145) mmol/L POC Glucose (mg/dL) 149 H (75-99) mg/dL Calcium 8.3 L (8.4-10.2) mg/dL ALT 36 H (4-34) U/L Total Protein 5.5 L (6.3-8.2) g/dL Albumin 2.4 L (3.5-5.0) g/dL Microbiology - Last 24 Hours (Table) 10/21/20 13:00 Blood Culture - Preliminary Blood No Growth after 96 hours Assessment and Plan Plan: 1. Left upper lobe pneumonia maintained on IV antibiotic infectious disease consultation requested 2. Urinary tract infection 3. Hyponatremia 4. Hyperkalemia 5. Possible worsening mental status changes and slurred speech Neurology consultation was requested. 6. Elevated liver enzymes with abnormal liver ultrasound showing dilated common bile duct gastroenterology consultation requested At this time patient was started on IV Rocephin and oral Zithromax Medication and labs were reviewed and reordered Will follow during this admission for medical management
--- NOTE | 2020-10-26 16:06 | XR ---
EXAMINATION TYPE: XR chest 1V portable DATE OF EXAM: 10/26/2020 COMPARISON: 10/21/2020 HISTORY: Hypoxemia TECHNIQUE: Single view FINDINGS: There is extensive opacification left hemithorax. Heart and mediastinum are deviated slight ly to the left side. There is interstitial infiltrate throughout the right lung. IMPRESSION: There is significant airspace consolidation and mild volume loss in the left lung that de leon s progressed compared to recent exam. There is increasing diffuse interstitial infiltrate in the righ t lung compared to recent exam. RDS is possible. Congestive heart failure not excluded.
[2020-10-26] MEDS ORDERED: BENZONATATE 100 MG CAP PO PRN (17:26)
[2020-10-26] MEDS: IPRATROPIUM-ALBUTEROL 3 ML NEB INHALATION PRN (20:20)
[2020-10-26] MEDS: ATORVASTATIN 40 MG TAB PO SCH (20:22)
[2020-10-26] MEDS: ACETAMINOPHEN TAB 500 MG TAB PO PRN (21:05)
[2020-10-27] MEDS: PIPERACILLIN-TAZOBACTAM 3.375 GM in SODIUM CHLORIDE 0.9% 100 ML IVPB SCH ×4 (00:15→23:27)
--- NOTE | 2020-10-27 01:07 | PN ---
PROGRESS NOTE DATE OF SERVICE: 10/26/2020 REASON FOR FOLLOWUP: Enterococcus UTI and pneumonia. INTERVAL HISTORY: The patient has been afebrile. The patient has been breathing comfortably. Denies any chest pain. She did have some congested cough, noticed to be hypoxic requiring supplemental oxygen which has been compared to yesterday. No vomiting or diarrhea has been reported. PHYSICAL EXAMINATION: Blood pressure is 151/71 with a pulse of 84, temperature 99. General description: The patient is an elderly female up in the bed in no distress. Respiratory system: Unlabored breathing and decreased breath sounds in the bases. Heart S1, S2. Regular rate and rhythm. Abdomen soft, no tenderness. LABS: Hemoglobin 9.5, white count 9.0, creatinine 0.57. Chest x-ray now showing significant airspace consolidation and mild volume loss in the left lung. DIAGNOSTIC IMPRESSION AND PLAN: Patient with left lower lobe pneumonia, possible aspiration etiology versus gram- negative with worsening on the Unasyn. We will discontinue the Unasyn and start the patient on Zosyn. Try to obtain a sputum and monitor clinical course. MMODL / IJN: [id number] /
[2020-10-27] MEDS: SODIUM CHLORIDE 0.9% 1,000 ML IV SCH ×2 (05:25→20:00)
[2020-10-27] MEDS: ASPIRIN 81 MG PO SCH (07:40)
[2020-10-27] MEDS: polyethylene glycoL 3350 17 GM POWD.PACK PO SCH (07:40)
[2020-10-27] MEDS: LEVOTHYROXINE 50 MCG TAB PO SCH (07:40)
[2020-10-27] MEDS: DOCUSATE 100 MG CAP PO SCH ×2 (07:40→19:58)
[2020-10-27] MEDS: metFORMIN 500 MG TAB PO SCH ×2 (07:40→19:58)
[2020-10-27] MEDS: BACLOFEN 10 MG TAB PO SCH ×2 (07:40→19:58)
[2020-10-27] MEDS: buPROPion SR 150 MG TABLET.ER PO SCH ×2 (07:40→19:59)
[2020-10-27] MEDS: guaiFENesin SYRUP 100MG/5ML 200 MG/10 ML CUP PO SCH ×2 (07:41→19:59)
[2020-10-27] MEDS: GABAPENTIN 300 MG CAP PO SCH ×3 (07:41→19:58)
[2020-10-27] MEDS: CLOPIDOGREL 75 MG TAB PO SCH (07:41)
[2020-10-27] MEDS: risperiDONE 0.5 MG TAB PO SCH ×2 (07:41→19:59)
[2020-10-27] MEDS ORDERED: RX INFO: IV CONTRAST WAS GIVEN 1 EACH MISC MISCELLANE PRN (08:00)
[2020-10-27] MEDS: IPRATROPIUM 0.5 MG/2.5 ML NEBU INHALATION SCH ×4 (08:10→20:55)
[2020-10-27] MEDS: SYMBICORT 80-4.5 MCG INHALER INHALATION SCH ×2 (08:10→20:57)
--- NOTE | 2020-10-27 08:59 | XR ---
EXAMINATION TYPE: XR chest 1V portable DATE OF EXAM: 10/27/2020 CLINICAL HISTORY: Hypoxia and fever progress study. TECHNIQUE: Single AP portable upright view of the chest is obtained. COMPARISON: Chest x-ray from one day earlier and older studies. FINDINGS: Persistent diffuse left lung opacity with some improved aeration left upper lung. Persiste nt silhouetting of the left hemidiaphragm and heart border. Background chronic parenchymal change wit h worsening right lung alveolar and interstitial opacities. Osseous structures are intact. Cardiac si lhouette size is difficult to assess likely stable and upper limits of normal IMPRESSION: Chronic parenchymal changes with diffuse left mid to lower lung acute edema and/or infilt rates slightly improved in the upper lung from one day earlier. But there is developing diffuse right lung edema and/or infiltrates noted in interval.
[2020-10-27 09:48] LABS: C Reactive Protein 11.8 mg/dL (0.0-0.8)
--- NOTE | 2020-10-27 10:30 | US ---
EXAMINATION TYPE: US chest DATE OF EXAM: 10/27/2020 COMPARISON: Chest x-ray earlier today. CLINICAL HISTORY: Markings for thoracentesis by pulmonary staff. TECHNIQUE: Targeted ultrasound of the posterior lower bilateral hemithoraces EXAM MEASUREMENTS: Right Pleural Effusion pocket size: 0.0 cm Left Pleural Effusion pocket size: 5.5 cm Right side NOT marked for possible thoracentesis outside the dept due to no fluid seen. Left side NOT marked for possible thoracentesis outside the dept due to lung tissue in fluid pocket. Pulmonologists are able to review the images in the patient?s EMR. No significant right-sided pleural effusion on the initial 2 images saved. Next 4 images show only sm all left pleural effusion and atelectatic lung which correlates with same day x-ray. IMPRESSIONS: As above.
--- NOTE | 2020-10-27 10:33 | P.PN ---
Subjective Progress Note Date: 10/27/20 Sofía Leslie is a 74 year-old female patient of Dr Jacob who presented to [facility] ER with a chief complaint of slurred speech, patient has a known history of bipolar disorder, schizophrenia, she is a poor historian her baseline mental status and speech pattern is not clear however caregivers. There is a change from her baseline and she was brought into emergency room to be evaluated for possible stroke. Patient was evaluated in the emergency room her temperature was 97.9 pulse 75 respiration 18 blood pressure 111/55 pulse ox 95% on room air, subsequently dropped to 83% on room air. Her laboratory data was significant for a white blood count of 26.8 sodium of 125 potassium of 6.0 and evidence of elevated AST at 101 and evidence of urinary tract infection. Patient underwent a computed tomography scan of the brain without contrast in the emergency room that revealed age-related atrophic and chronic small vessel disease changes without acute intracranial bleeding she also underwent computed tomography scan of the cervical spine due to recent fall there was no evidence for acute fracture or subluxation of the cervical spine CT angiogram of the brain did not reveal any significant abnormality in the craig of Shukla CT angiogram of the neck revealed 80% stenosis on the left internal carotid artery chest x-ray was positive for left upper lobe infiltrate correlate for pneumonia. EKG revealed accelerated junctional rhythm with nonspecific T-wave abnormality. Patient was started on IV antibiotic for UTI and pneumonia. She was started on IV fluid for severe hyponatremia she was admitted to medical floor infectious disease consultation and cardiology consultation were requested. On 10/23/2020 patient was seen and examined on the medical floor she is alert, slightly confused in no apparent distress there is no fever or chills no headache or dizziness no chest pain no shortness of breath no cough no nausea or vomiting no abdominal pain no diarrhea and no urinary symptoms. On 10/24/2020 patient was seen and examined on the medical floor she is alert confused in no apparent distress there is no fever or chills no headache or dizziness no chest pain no shortness of breath no cough no nausea or vomiting no abdominal pain no diarrhea and no urinary symptoms, patient is being treated for pneumonia, urinary tract infection, mental status changes she seems to be related to metabolic encephalopathy related to her infections, case was discussed with neurology today Dr. Robbins no evidence of acute CVA at this point. On 10/25/2020 patient was seen and examined on the medical floor she is alert confused in no distress she is complaining of cough her oxygen saturation is borderline with 2 L of nasal cannula, there is no fever or chills no headache or dizziness no chest pain no shortness of breath no nausea or vomiting no abdominal pain no diarrhea no blood in the stools no burning with urination no frequency or urgency and no hematuria. Liver enzymes are elevated liver ultrasound reveals enlarged common bile duct gastroenterology consultation re quested. On 10/26/2020 patient was seen and examined on the medical floor she is alert and oriented 3 in no apparent distress today she is maintained on oxygen 3 L nasal cannula her pulse ox is 89 at this time will repeat chest x-ray will repeat Covid 19 testing there is no fever or chills no headache or dizziness no chest pain no shortness of breath patient is still having cough no nausea or vo miting no abdominal pain no diarrhea no blood in the stools no burning with urination no frequency or urgency no hematuria On 10/27/2020 patient was seen and examined on the medical floor she is alert and oriented, her condition is worse today she developed worsening shortness of breath was decreased O2 saturation repeat chest x-ray, reveals bilateral infiltrates, her Covid 19 testing on presentation was negative, repeat testing ordered yesterday is still pending, patient will be started on IV Decadron pulmonary consultation was requested yesterday she is also followed by infectious disease Objective - Vital Signs Vital signs: Vital Signs Temp 98.2 F 10/27/20 08:00 Pulse 82 10/27/20 08:22 Resp 20 10/27/20 08:00 BP 170/75 10/27/20 08:00 Pulse Ox 96 10/27/20 08:00 Intake & Output 10/26/20 10/27/20 10/27/20 18:59 06:59 18:59 Intake Total 100 Balance 100 Intake: Intake, IV Titration 100 Amount Piperacillin-Tazobactam 3 100 .375 gm In Sodium Chloride 0.9% 100 ml @ 25 mls/hr IVPB Q8HR [facility] Rx# :[id number] Other: Voiding Method Incontinent Incontinent # Voids 1 - Exam In general patient is alert slightly confused in no apparent distress HEENT head normocephalic and atraumatic Neck is supple no JVD no goiter no lymphadenopathy Chest exam reveals a few scattered rhonchi no wheezing Cardiac exam reveals regular heart sounds S1 and S2 no gallops no murmurs Abdomen is soft nontender no organomegaly with normal bowel sounds Extremity exam reveals no edema no cyanosis or clubbing Neurological examination reveals no gross focal deficit - Labs CBC & Chem 7: 10/26/20 06:54 10/26/20 06:54 Labs: Abnormal Lab Results - Last 24 Hours (Table) 10/27/20 10/27/20 10/27/20 Range/Units 04:45 04:45 04:45 D-Dimer 4.16 H (<0.60) mg/L FEU C-Reactive Protein 11.8 H (0.0-0.8) mg/dL Procalcitonin 0.11 H (0.02-0.09) ng/mL Microbiology - Last 24 Hours (Table) 10/21/20 13:00 Blood Culture - Preliminary Blood No Growth after 120 hours Assessment and Plan Plan: 1. Left upper lobe pneumonia maintained on IV antibiotic infectious disease consultation requested 2. Urinary tract infection 3. Hyponatremia 4. Hyperkalemia 5. Possible worsening mental status changes and slurred speech Neurology consultation was requested. 6. Elevated liver enzymes with abnormal liver ultrasound showing dilated common bile duct gastroenterology consultation requested At this time patient was started on IV Rocephin and oral Zithromax Medication and labs were reviewed and reordered Will follow during this admission for medical management
--- NOTE | 2020-10-27 11:08 | CT ---
EXAMINATION TYPE: CT angio chest DATE OF EXAM: 10/27/2020 10:44 AM COMPARISON: Chest x-ray earlier today an older studies HISTORY: Pulmonary Embolus CT DLP: 308.7 mGycm Automated exposure control for dose reduction was used. CONTRAST: CTA scan of the thorax is performed with IV Contrast, patient injected with 75 mL of Isovue 370, pulm onary embolism protocol. . FINDINGS: LUNGS: Background mild to moderate underlying emphysematous and pulmonary fibrotic change. There are small to tiny bilateral pleural effusions and associated compressive atelectasis. Pleural fluid exten ds into the right-sided major fissure with more rounded appearance. Bilateral upper lobes posterior i nferior aspect show multifocal organizing consolidation with additional areas of involvement in the l ingula and left lower lobe and to lesser degree the right lower lobe axial image 102. No pneumothorax seen bilaterally. MEDIASTINUM: There is suboptimal bolus with most dense contrast seen in the SVC but there is no conv incing evidence for medium or large size central pulmonary embolism. Enlarged main pulmonary artery o f 3.3 cm image 57 consistent with underlying pulmonary hypertension. Smaller segmental and subsegmen danielle PE not entirely excluded on this study. There is abnormal thoracic adenopathy with involvement pr evascular region and AP window near axial image 47 and pericarinal region axial image 49.Enlarged love ateral hilar lymph nodes. No pericardial effusion is seen. There is cardiomegaly with moderate to sev ere biatrial dilatation and moderate left ventricular dilatation. OTHER: Focal calcified plaque at origin of celiac artery appears to cause significant stenosis sagit danielle image 89. Correlate clinically. IMPRESSION: 1. Suboptimal study without central pulmonary embolism. 2. Cardiomegaly with small bilateral pleural effusions. Background moderate emphysematous and to less er degree scattered pulmonary fibrotic changes. Multifocal areas of organizing consolidation bilatera lly consistent with covid- 19 infection progression.
--- NOTE | 2020-10-27 12:20 | P.CONS ---
History of Present Illness - Reason for Consult Consult date: 10/26/20 Dilated common bile duct Requesting physician: gAnieszka Sanchez - Chief Complaint Slurred speech - History of Present Illness 74-year-old female with a medical history significant for bipolar disorder, schizophrenia who presented with slurred speech. She was evaluated for possible CVA with no evidence of such. Evaluation was suggestive of UTI and pneumonia and the patient has been receiving treatment in association with the infectious disease service. She has had issues with shortness of breath which have persisted. She did have evaluation with ultrasound of the abdomen due to mild elevation of her liver enzymes which are almost completely normal today with total bilirubin 0.6, alkaline phosphatase 63, AST 34 and ALT 36. On questioning patient denies any history of elevation of liver enzymes or liver disease. She denies any right upper quadrant pain at this time. She has tolerated diet. Review of Systems REVIEW OF SYSTEMS: CONSTITUTIONAL: Denies any fevers, chills, weight change but she is reporting fatigue. CARDIOVASCULAR: Denies any chest pain, palpitations high or low blood pressures RESPIRATORY: Denies any hemoptysis but does report shortness of breath and cough. GENITOURINARY: No dysuria or hematuria. MUSCULOSKELETAL: No weakness reported. SKIN: Denies any new rashes or lesions, jaundice or pallor. PSYCHIATRIC: Denies any depression or anxiety at present but she does have an underlying psychiatric history. NEUROLOGY: Denies headache, denies any new focal deficits. EARS/NOSE/THROAT: No recent hearing change, congestion, nasal discharge or sore throat. EYES: No pain in eyes, discharge or change in vision. GASTROINTESTINAL: As per HPI. Past Medical History Past Medical History: COPD, Diabetes Mellitus, Hypertension, Thyroid Disorder History of Any Multi-Drug Resistant Organisms: None Reported Past Surgical History: Unable to Obtain Past Anesthesia/Blood Transfusion Reactions: No Reported Reaction Past Psychological History: Depression, Schizophrenia Additional Psychological History / Comment(s): SEVERELY PARANOID Smoking Status: Current every day smoker Past Alcohol Use History: None Reported, Abuse Past Drug Use History: None Reported Additional History: Family history: Reviewed with the patient and noncontributory to current medical presentation. Medications and Allergies Home Medications Medication Instructions Recorded Confirmed Type ALPRAZolam [Xanax] 0.25 mg PO TID PRN 06/15/20 10/21/20 History Baclofen 10 mg PO BID@0800,199906/15/20 10/21/20 History Betamethasone Dipropionate 1 applic TOPICAL BID PRN 06/15/20 10/21/20 History [Diprolene AF 0.05% Cream] Carbamide Peroxide [Debrox Otic] 6 drops BOTH EARS DAILY PRN 06/15/20 10/21/20 History Docusate [Colace] 100 mg PO BID@0800,199906/15/20 10/21/20 History Fluticasone/Umeclidin/Vilanter 1 puff INHALATION RT-DAILY@199906/15/20 10/21/20 History [Trelegy Ellipta 100-62.5-25] Furosemide [Lasix] 20 mg PO DAILY PRN 06/15/20 10/21/20 History Gabapentin [Neurontin] 300 mg PO TID@0800,1300,199906/15/20 10/21/20 History Ipratropium-Albuterol Nebulize 3 ml INHALATION RT-QID PRN 06/15/20 10/21/20 History [Duoneb 0.5 mg-3 mg/3 ml Soln] Levothyroxine Sodium [Synthroid] 50 mcg PO DAILY@0800 06/15/20 10/21/20 History Magnesium Hydroxide [Milk of 2,400 mg PO DAILY PRN 06/15/20 10/21/20 History Magnesia] Meclizine HCl 25 mg PO BID PRN 06/15/20 10/21/20 History Mupirocin 2% Oint [Bactroban 2% 1 applic TOPICAL TID PRN 06/15/20 10/21/20 H istory Oint] Simvastatin [Zocor] 20 mg PO DAILY@199906/15/20 10/21/20 History Vitamin B Complex 1 tab PO DAILY@0800 06/15/20 10/21/20 History amLODIPine [Norvasc] 5 mg PO DAILY@0806/15/20 10/21/20 History buPROPion HCL [Wellbutrin SR] 150 mg PO BID@0800,199906/15/20 10/21/20 History guaiFENesin [guaiFENesin Oral 200 mg PO BID@0800,199906/15/20 10/21/20 History Solution] metFORMIN HCL ER [Glucophage Xr] 500 mg PO HS@199906/15/20 10/21/20 History polyethylene glycoL 3350 [Miralax] 17 gm PO DAILY@0806/15/20 10/21/20 History risperiDONE 1.5 mg PO BID@06/15/20 10/21/20 History Acetaminophen Tab [Tylenol Tab] 500 - 1,000 mg PO Q8H PRN 10/21/20 10/21/20 History Azithromycin [Zithromax] See Taper PO DAILY@0810/21/20 10/21/20 History Theraworx Relief 1 pump TOPICAL BID PRN 10/21/20 10/21/20 History Allergies Allergy/AdvReac Type Severity Reaction Status Date / Time No Known Allergies Allergy Verified 10/21/20 09:00 Physical Exam Vitals: Vital Signs Temp Pulse Pulse Pulse Resp BP BP 10/26/20 13:51 80 10/26/20 13:37 80 10/26/20 13:06 10/26/20 08:46 80 10/26/20 08:39 80 10/26/20 08:25 98.2 F 67 16 148/69 10/26/20 02:10 98.0 F 70 20 131/57 10/25/20 21:15 69 10/25/20 21:05 69 10/25/20 20:00 98.9 F 69 19 161/77 10/25/20 16:52 89 10/25/20 16:41 75 10/25/20 16:00 60 18 151/70 Pulse Ox 10/26/20 13:51 10/26/20 13:37 10/26/20 13:06 99 10/26/20 08:46 10/26/20 08:39 10/26/20 08:25 89 L 10/26/20 02:10 95 10/25/20 21:15 10/25/20 21:05 10/25/20 20:00 94 L 10/25/20 16:52 10/25/20 16:41 10/25/20 16:00 95 Intake and Output 10/25/20 10/26/20 10/26/20 22:59 06:59 14:59 Intake Total 322 Balance 322 Intake: IV 100 Ampicillin-Sulbactam 3 gm 100 In Sodium Chloride 0.9% 100 ml @ 200 mls/hr IVPB Q6HR [facility] Rx#:[id number] Oral 222 Other: Voiding Method Incontinent Incontinent Incontinent # Voids 2 On physical examination, patient appears comfortable in no apparent distress. HEAD: Normocephalic, atraumatic. EYES: No scleral icterus. No conjunctival injection. MOUTH: No lesions, tongue midline. NECK: Trachea midline, no gross abnormalities. CHEST: Decreased air entry in all. HEART: Regular rate and rhythm. ABDOMEN: Soft, nontender to palpation. Bowel sounds are positive. No organomegaly. No guarding or rigidity. EXTREMITIES: No pedal edema. SKIN: No rashes, no jaundice. NEUROLOGIC: Alert and oriented x3. No focal deficits. Results CBC & Chem 7: 10/26/20 06:54 10/26/20 06:54 Labs: Abnormal Lab Results - Last 24 Hours (Table) 10/25/20 10/26/20 10/26/20 Range/Units 20:22 06:54 06:54 RBC 3.15 L (3.80-5.40) m/uL Hgb 9.5 L (11.4-16.0) gm/dL Hct 28.7 L (34.0-46.0) % Sodium 134 L (137-145) mmol/L POC Glucose (mg/dL) 149 H (75-99) mg/dL Calcium 8.3 L (8.4-10.2) mg/dL ALT 36 H (4-34) U/L Total Protein 5.5 L (6.3-8.2) g/dL Albumin 2.4 L (3.5-5.0) g/dL Microbiology - Last 24 Hours (Table) 10/21/20 13:00 Blood Culture - Preliminary Blood No Growth after 96 hours US - abdomen: report reviewed (Ultrasound abdomen with no focal liver defect about 1 cm dilated CBD noted) Assessment and Plan (1) Common bile duct dilation Narrative/Plan: 74-year-old female with multiple medical comorbidities currently being treated for suspected pneumonia and UTI. Ultrasound of the abdomen was performed in evaluation of elevated liver enzymes and showed a dilated CBD with no other liver abnormalities seen. Liver enzymes almost completely normal with only mild elevation today with total bilirubin 0.6, alkaline phosphatase 63, AST 34 and ALT 36. She denies any history of liver abnormalities or abnormal liver enzymes in the past. Suspicion is for medication effects or other benign process, however cannot rule out other etiology. There is no evidence of biliary obstruction evaluation of liver enzymes. Current Visit: Yes Status: Acute Code(s): K83.8 - OTHER SPECIFIED DISEASES OF BILIARY TRACT SNOMED Code(s): 470090132 (2) Elevated liver enzymes Current Visit: Yes Status: Acute Code(s): R74.8 - ABNORMAL LEVELS OF OTHER SERUM ENZYMES SNOMED Code(s): 289422366 Plan: Supportive care Okay for diet as tolerated Continue monitor CBC, BMP, LFTs Continue treatment of suspected UTI and pneumonia Recommendation is for nonemergent MRCP for evaluation of the bile duct, this can be performed after discharge Thank you for allowing us to participate in the care of the patient, the GI service will stand by, please call us back with any questions or concerns
[2020-10-27] MEDS: DEXAMETHASONE SOD PHOSPHATE 10 MG/ML 1 ML VIAL IV SCH (13:33)
[2020-10-27] MEDS: ENOXAPARIN 40 MG/0.4 ML SYRINGE SQ SCH (13:33)
[2020-10-27] MEDS: ZINC SULFATE 220 MG CAP PO SCH (13:33)
[2020-10-27] MEDS: ASCORBIC ACID 500 MG TAB PO SCH (13:33)
--- NOTE | 2020-10-27 13:35 | P.CNPUL ---
History of Present Illness Consult date: 10/27/20 Requesting physician: Agnieszka Sanchez Reason for consult: dyspnea, hypoxemia, abnormal CXR/CT Chief complaint: Shortness of breath History of present illness: This is a 74-year-old female patient who follows with Dr. Jacob as her primary care provider. She has a history of hypertension, hypothyroidism, diabetes mellitus, chronic obstructive pulmonary disease, severe paranoia and schizophrenia, chronic and ongoing tobacco dependence. She was brought into the emergency room via EMS back on 10/21/2020 for altered mental status upon wakening. She was unable to provide any significant history. She did have slurred speech and possibly suffered a fall. CAT scan revealed age related atrophic and chronic small vessel ischemic changes without acute intracranial process. Urine positive for enterococcal faecalis. Blood culture revealed no growth. Chest x-ray did reveal left lung infiltrate. She had been initiated on Unasyn. Her oxygen requirements continued to worsen and she is currently on the AirVo high flow oxygen device at 30 L and 80% FiO2 to maintain O2 saturation in the low 90s. We're consulted today 10/27/2020 for the same. Chest x-ray reveals significant diffuse left mid to lower lung edema/infiltrate and worsening diffuse right lung edema/infiltrate. An ultrasound of the chest was requested and there was 0 amount of fluid in the right lung and 5.5 cm pocket in the left. Not enough to consider a thoracentesis. CAT scan of the chest revealed cardiomegaly with small bilateral pleural effusions. Background moderate emphysematous changes and scattered fibrotic changes. There are multifocal areas of organizing consolidation bilaterally consistent with CoVID 19 infection. Again, her initial screen was negative. She is seen on the regular medical floor. She is currently sitting up in bed. She is oriented to self only. She no she is in a facility unclear which one. Not sure of the day or the time. Not sure why she is here. White count 9.0. Hemoglobin 9.5. D- dimer 4.16. Sodium 134. Potassium 3.7. Creatinine 0.57. LDH 221. C-reactive protein 11.8. Pro-calcitonin 0.11. She is switched to Zosyn. Repeat CoVID 19 screen pending. Review of Systems ROS unobtainable: due to mental status Past Medical History Past Medical History: COPD, Diabetes Mellitus, Hypertension, Thyroid Disorder History of Any Multi-Drug Resistant Organisms: None Reported Past Surgical History: Unable to Obtain Past Anesthesia/Blood Transfusion Reactions: No Reported Reaction Past Psychological History: Depression, Schizophrenia Additional Psychological History / Comment(s): SEVERELY PARANOID Smoking Status: Current every day smoker Past Alcohol Use History: None Reported, Abuse Past Drug Use History: None Reported Medications and Allergies Home Medications Medication Instructions Recorded Confirmed Type ALPRAZolam [Xanax] 0.25 mg PO TID PRN 06/15/20 10/21/20 History Baclofen 10 mg PO BID@0800,199906/15/20 10/21/20 History Betamethasone Dipropionate 1 applic TOPICAL BID PRN 06/15/20 10/21/20 History [Diprolene AF 0.05% Cream] Carbamide Peroxide [Debrox Otic] 6 drops BOTH EARS DAILY PRN 06/15/20 10/21/20 History Docusate [Colace] 100 mg PO BID@0800,199906/15/20 10/21/20 History Fluticasone/Umeclidin/Vilanter 1 puff INHALATION RT-DAILY@199906/15/20 10/21/20 History [Trelegy Ellipta 100-62.5-25] Furosemide [Lasix] 20 mg PO DAILY PRN 06/15/20 10/21/20 History Gabapentin [Neurontin] 300 mg PO TID@0800,1300,199906/15/20 10/21/20 History Ipratropium-Albuterol Nebulize 3 ml INHALATION RT-QID PRN 06/15/20 10/21/20 History [Duoneb 0.5 mg-3 mg/3 ml Soln] Levothyroxine Sodium [Synthroid] 50 mcg PO DAILY@0800 06/15/20 10/21/20 History Magnesium Hydroxide [Milk of 2,400 mg PO DAILY PRN 06/15/20 10/21/20 History Magnesia] Meclizine HCl 25 mg PO BID PRN 06/15/20 10/21/20 History Mupirocin 2% Oint [Bactroban 2% 1 applic TOPICAL TID PRN 06/15/20 10/21/20 History Oint] Simvastatin [Zocor] 20 mg PO DAILY@199906/15/20 10/21/20 History Vitamin B Complex 1 tab PO DAILY@0800 20 11/23/20 History amLODIPine [Norvasc] 5 mg PO DAILY@79906/15/20 10/21/20 History buPROPion HCL [Wellbutrin SR] 150 mg PO BID@799,199906/15/20 10/21/20 History guaiFENesin [guaiFENesin Oral 200 mg PO BID@799,199906/15/20 10/21/20 History Solution] metFORMIN HCL ER [Glucophage Xr] 500 mg PO HS@199906/15/20 10/21/20 History polyethylene glycoL 3350 [Miralax] 17 gm PO DAILY@79906/15/20 10/21/20 History risperiDONE 1.5 mg PO BID@799,199906/15/20 10/21/20 History Acetaminophen Tab [Tylenol Tab] 500 - 1,000 mg PO Q8H PRN 10/21/20 10/21/20 History Azithromycin [Zithromax] See Taper PO DAILY@79910/21/20 10/21/20 History Theraworx Relief 1 pump TOPICAL BID PRN 10/21/20 10/21/20 History Allergies Allergy/AdvReac Type Severity Reaction Status Date / Time No Known Allergies Allergy Verified 10/21/20 09:00 Physical Exam Vitals: Vital Signs Temp Pulse Pulse Pulse Resp BP BP 10/27/20 12:40 80 10/27/20 12:20 80 10/27/20 11:47 97.1 F L 65 18 163/50 10/27/20 08:22 82 10/27/20 08:10 82 10/27/20 08:00 98.2 F 62 20 170/75 10/27/20 03:17 10/27/20 02:00 98.4 F 62 18 128/69 10/26/20 22:00 18 10/26/20 21:09 100.7 F H 10/26/20 20:21 73 10/26/20 19:55 10/26/20 19:42 99.0 F 84 20 151/71 10/26/20 16:17 83 10/26/20 16:10 83 10/26/20 14:18 97.4 F L 69 20 141/71 10/26/20 13:51 80 10/26/20 13:37 80 Pulse Ox 10/27/20 12:40 10/27/20 12:20 10/27/20 11:47 95 10/27/20 08:22 10/27/20 08:10 10/27/20 08:00 96 10/27/20 03:17 91 L 10/27/20 02:00 94 L 10/26/20 22:00 91 L 10/26/20 21:09 10/26/20 20:21 10/26/20 19:55 85 L 10/26/20 19:42 85 L 10/26/20 16:17 10/26/20 16:10 10/26/20 14:18 92 L 10/26/20 13:51 10/26/20 13:37 Intake and Output 10/26/20 10/27/20 10/27/20 22:59 06:59 14:59 Intake Total 100 Balance 100 Intake: Intake, IV Titration 100 Amount Piperacillin-Tazobactam 3 100 .375 gm In Sodium Chloride 0.9% 100 ml @ 25 mls/hr IVPB Q8HR [facility] Rx# :[id number] Other: Voiding Method Incontinent # Voids 1 1 GENERAL EXAM: Alert, confused 74-year-old female patient, on AIrVO high flow oxygen 30 liters and 80% FiO2, comfortable in no apparent distress. HEAD: Normocephalic. EYES: Normal reaction of pupils, equal size. NOSE: Clear with pink turbinates. THROAT: No erythema or exudates. NECK: No masses, no JVD. CHEST: No chest wall deformity. LUNGS: Equal air entry with bilateral scattered rhonchi, coarse crackles in the bases, diminished. CVS: S1 and S2 normal with no audible murmur, regular rhythm. ABDOMEN: No hepatosplenomegaly, normal bowel sounds, no guarding or rigidity. SPINE: No scoliosis or deformity SKIN: No rashes CENTRAL NERVOUS SYSTEM: No focal deficits, tone is normal in all 4 extremities. EXTREMITIES: There is no peripheral edema. No clubbing, no cyanosis. Peripheral pulses are intact. Results - Laboratory Findings CBC and BMP: 10/26/20 06:54 10/26/20 06:54 PT/INR, D-dimer PT 9.8 sec (9.0-12.0) 10/21/20 09:21 INR 0.9 (<1.2) 10/21/20 09:21 D-Dimer 4.16 mg/L FEU (<0.60) H 10/27/20 04:45 Abnormal lab findings: Abnormal Labs 10/21/20 10/21/20 10/21/20 09:20 09:21 09:21 WBC 26.8 H RBC Hgb 11.2 L Hct RDW 15.8 H Neutrophils # Neutrophils # (Manual) 25.90 H Lymphocytes # Lymphocytes # (Manual) 0.80 L D-Dimer Sodium 125 L Potassium 6.0 H Chloride 95 L Glucose 114 H POC Glucose (mg/dL) 118 H Calcium AST 101 H ALT C-Reactive Protein Total Protein Albumin 3.3 L Vitamin B12 RBC Folate Procalcitonin Urine Appearance Ur Specific Allen Urine Protein Urine Blood Ur Leukocyte Esterase Urine RBC Urine WBC Urine WBC Clumps Urine Mucus 10/21/20 10/22/20 10/22/20 12:00 10:56 10:56 WBC 20.2 H RBC 3.60 L Hgb 10.9 L Hct 32.8 L RDW 15.6 H Neutrophils # 18.6 H Neutrophils # (Manual) Lymphocytes # 0.8 L Lymphocytes # (Manual) D-Dimer Sodium 130 L Potassium Chloride Glucose 110 H POC Glucose (mg/dL) Calcium AST 139 H ALT 42 H C-Reactive Protein Total Protein 6.2 L Albumin 2.8 L Vitamin B12 RBC Folate Procalcitonin Urine Appearance Turbid H Ur Specific Allen 1.046 H Urine Protein 1+ H Urine Blood Large H Ur Leukocyte Esterase Large H Urine RBC 49 H Urine WBC >182 H Urine WBC Clumps Many H Urine Mucus Occasional H 10/22/20 10/22/20 10/22/20 10:56 10:56 20:47 WBC RBC Hgb Hct RDW Neutrophils # Neutrophils # (Manual) Lymphocytes # Lymphocytes # (Manual) D-Dimer Sodium Potassium Chloride Glucose POC Glucose (mg/dL) 134 H Calcium AST ALT C-Reactive Protein Total Protein Albumin Vitamin B12 982.0 H RBC Folate 1,274 H Procalcitonin Urine Appearance Ur Specific Allen Urine Protein Urine Blood Ur Leukocyte Esterase Urine RBC Urine WBC Urine WBC Clumps Urine Mucus 10/23/20 10/23/20 10/23/20 05:34 05:34 05:34 WBC 12.1 H RBC 3.43 L Hgb 10.1 L Hct 31.5 L RDW 15.6 H Neutrophils # 10.2 H Neutrophils # (Manual) Lymphocytes # 0.9 L Lymphocytes # (Manual) D-Dimer Sodium Potassium Chloride Glucose POC Glucose (mg/dL) Calcium AST ALT C-Reactive Protein 19.6 H Total Protein Albumin Vitamin B12 RBC Folate Procalcitonin 0.45 H Urine Appearance Ur Specific Allen Urine Protein Urine Blood Ur Leukocyte Esterase Urine RBC Urine WBC Urine WBC Clumps Urine Mucus 10/24/20 10/24/20 10/25/20 08:18 08:18 20:22 WBC RBC 3.33 L Hgb 9.9 L Hct 30.3 L RDW 15.9 H Neutrophils # Neutrophils # (Manual) Lymphocytes # 0.9 L Lymphocytes # (Manual) D-Dimer Sodium 133 L Potassium 3.4 L Chloride Glucose POC Glucose (mg/dL) 149 H Calcium 8.1 L AST 60 H ALT 40 H C-Reactive Protein Total Protein 5.7 L Albumin 2.5 L Vitamin B12 RBC Folate Procalcitonin Urine Appearance Ur Specific Allen Urine Protein Urine Blood Ur Leukocyte Esterase Urine RBC Urine WBC Urine WBC Clumps Urine Mucus 10/26/20 10/26/20 10/27/20 06:54 06:54 04:45 WBC RBC 3.15 L Hgb 9.5 L Hct 28.7 L RDW Neutrophils # Neutrophils # (Manual) Lymphocytes # Lymphocytes # (Manual) D-Dimer Sodium 134 L Potassium Chloride Glucose POC Glucose (mg/dL) Calcium 8.3 L AST ALT 36 H C-Reactive Protein Total Protein 5.5 L Albumin 2.4 L Vitamin B12 RBC Folate Procalcitonin 0.11 H Urine Appearance Ur Specific Allen Urine Protein Urine Blood Ur Leukocyte Esterase Urine RBC Urine WBC Urine WBC Clumps Urine Mucus 10/27/20 10/27/20 04:45 04:45 WBC RBC Hgb Hct RDW Neutrophils # Neutrophils # (Manual) Lymphocytes # Lymphocytes # (Manual) D-Dimer 4.16 H Sodium Potassium Chloride Glucose POC Glucose (mg/dL) Calcium AST ALT C-Reactive Protein 11.8 H Total Protein Albumin Vitamin B12 RBC Folate Procalcitonin Urine Appearance Ur Specific Allen Urine Protein Urine Blood Ur Leukocyte Esterase Urine RBC Urine WBC Urine WBC Clumps Urine Mucus - Diagnostic Findings Chest x-ray: image reviewed Assessment and Plan Assessment: 1 Acute hypoxic respiratory failure secondary to suspected aspiration pneumonia versus CoVID 19 pneumonia 2 Altered mental status suspect secondary to above 3 Acute exacerbation of chronic obstructive pulmonary disease 4 Chronic and ongoing tobacco dependence 5 Severe paranoia and bipolar disorder 6 history of congestive heart failure 7 History of valvular heart disease 8 Hypothyroidism 9 Diabetes mellitus 10 Hypertension Plan: The patient was seen and evaluated by Dr. Zepeda Chest x-ray and labs reviewed CAT scan and ultrasound ordered and reviewed Not enough fluid for thoracentesis Suspect CoVID 19 pneumonitis versus aspiration pneumonia Repeat CoVID screen pending Continue Symbicort and DuoNeb inhalations Antibiotics changed to Zosyn Initiated on Decadron, Lovenox per ID services Titrate the FiO2 as tolerated Monitor oxygen therapy closely We will continue to follow and make further recommendations based on her clinical status I, the cosigning physician, performed a history & physical examination of the patient. Lungs sounds with bilateral rhonchi, crackles in the posterior bases diminished. Maintaining good O2 saturations in the 90s on 80% FiO2 via the AirVo. I discussed the assessment and plan of care with my nurse practitioner, Sona Parker. I attest to the above consultation as dictated by her. Time with Patient: Greater than 30
[2020-10-27] MEDS: IPRATROPIUM-ALBUTEROL 3 ML NEB INHALATION PRN (16:00)
[2020-10-27] MEDS: CHOLECALCIFEROL 400 UNIT TAB PO SCH (16:36)
[2020-10-27] MEDS: ATORVASTATIN 40 MG TAB PO SCH (19:58)
[2020-10-28] MEDS: ALPRAZolam 0.25 MG TAB PO PRN (04:16)
--- NOTE | 2020-10-28 05:59 | PN ---
PROGRESS NOTE DATE OF SERVICE: 10/27/2020 REASON FOR FOLLOWUP: 1. Pneumonia, possible COVID or aspiration. 2. Enterococcus UTI. INTERVAL HISTORY: Patient is currently afebrile. Patient is breathing slightly comfortably, still requiring high-flow oxygen. Denies any chest pain. Minimal cough. No abdominal pain. No diarrhea. EXAMINATION: Blood pressure 140/66, pulse of 71, temperature 99.1. She is 96% on high-flow nasal cannula oxygen. General description is an elderly female lying in bed in no distress. Respiratory system: Unlabored breathing, decreased breath sounds in the bases, with no wheeze. Heart S1, S2. Regular rate and rhythm. Abdomen is soft, no tenderness. Extremities: No edema of the feet. LAB: COVID test came back negative. Hemoglobin 9.5, white count 9.0, d-dimer 4.16. Procalcitonin 0.11. CRP is down to 11.8. IMPRESSION/PLAN: Patient with pneumonia with concern for possible aspiration versus COVID. The COVID test came back negative. The patient is currently on Solu-Medrol, zinc sulfate, dexamethasone, to continue and monitor clinical course closely. MMODL / IJN: [id number] /
[2020-10-28] MEDS: SYMBICORT 80-4.5 MCG INHALER INHALATION SCH ×2 (08:31→20:35)
[2020-10-28] MEDS: ALBUTEROL HFA INHALER INHALATION PRN ×4 (08:31→20:35)
[2020-10-28] MEDS: TIOTROPIUM 18 MCG/PUFF INHALER INHALATION SCH (08:32)
[2020-10-28] MEDS: ASPIRIN 81 MG PO SCH (09:28)
[2020-10-28] MEDS: GABAPENTIN 300 MG CAP PO SCH ×3 (09:28→20:06)
[2020-10-28] MEDS: ENOXAPARIN 40 MG/0.4 ML SYRINGE SQ SCH (09:28)
[2020-10-28] MEDS: PIPERACILLIN-TAZOBACTAM 3.375 GM in SODIUM CHLORIDE 0.9% 100 ML IVPB SCH ×2 (09:28→15:46)
[2020-10-28] MEDS: guaiFENesin SYRUP 100MG/5ML 200 MG/10 ML CUP PO SCH ×2 (09:29→20:06)
[2020-10-28] MEDS: CLOPIDOGREL 75 MG TAB PO SCH (09:29)
[2020-10-28] MEDS: DOCUSATE 100 MG CAP PO SCH ×2 (09:29→20:06)
[2020-10-28] MEDS: ASCORBIC ACID 500 MG TAB PO SCH (09:29)
[2020-10-28] MEDS: buPROPion SR 150 MG TABLET.ER PO SCH ×2 (09:29→20:06)
[2020-10-28] MEDS: metFORMIN 500 MG TAB PO SCH ×2 (09:30→20:06)
[2020-10-28] MEDS: ZINC SULFATE 220 MG CAP PO SCH (09:30)
[2020-10-28] MEDS: LEVOTHYROXINE 50 MCG TAB PO SCH (09:30)
[2020-10-28] MEDS: polyethylene glycoL 3350 17 GM POWD.PACK PO SCH (09:31)
[2020-10-28] MEDS: DEXAMETHASONE SOD PHOSPHATE 10 MG/ML 1 ML VIAL IV SCH (09:31)
[2020-10-28] MEDS: risperiDONE 0.5 MG TAB PO SCH ×2 (09:32→20:06)
[2020-10-28] MEDS: CHOLECALCIFEROL 400 UNIT TAB PO SCH (09:35)
[2020-10-28] MEDS: BACLOFEN 10 MG TAB PO SCH ×2 (09:48→20:12)
[2020-10-28] MEDS: SODIUM CHLORIDE 0.9% 1,000 ML IV SCH ×2 (15:17→20:21)
--- NOTE | 2020-10-28 16:31 | P.PN ---
Subjective Progress Note Date: 10/28/20 Principal diagnosis: Shortness of breath This is a 74-year-old female patient who follows with Dr. Jacob as her primary care provider. She has a history of hypertension, hypothyroidism, diabetes mellitus, chronic obstructive pulmonary disease, severe paranoia and schizophrenia, chronic and ongoing tobacco dependence. She was brought into the emergency room via EMS back on 10/21/2020 for altered mental status upon wakening. She was unable to provide any significant history. She did have slurred speech and possibly suffered a fall. CAT scan revealed age related atrophic and chronic small vessel ischemic changes without acute intracranial process. Urine positive for enterococcal faecalis. Blood culture revealed no growth. Chest x-ray did reveal left lung infiltrate. She had been initiated on Unasyn. Her oxygen requirements continued to worsen and she is currently on the AirVo high flow oxygen device at 30 L and 80% FiO2 to maintain O2 saturation in the low 90s. We're consulted today 10/27/2020 for the same. Chest x-ray reveals significant diffuse left mid to lower lung edema/infiltrate and worsening diffuse right lung edema/infiltrate. An ultrasound of the chest was requested and there was 0 amount of fluid in the right lung and 5.5 cm pocket in the left. Not enough to consider a thoracentesis. CAT scan of the chest revealed cardiomegaly with small bilateral pleural effusions. Background moderate emphysematous changes and scattered fibrotic changes. There are multifocal areas of organizing consolidation bilaterally consistent with CoVID 19 infection. Again, her initial screen was negative. She is seen on the regular medical floor. She is currently sitting up in bed. She is oriented to self only. She no she is in a facility unclear which one. Not sure of the day or the time. Not sure why she is here. White count 9.0. Hemoglobin 9.5. D- dimer 4.16. Sodium 134. Potassium 3.7. Creatinine 0.57. LDH 221. C-reactive protein 11.8. Pro-calcitonin 0.11. She is switched to Zosyn. Repeat CoVID 19 screen pending. on 10/28/2020 patient is seen in follow-up on Gen. medical surgical floor. She remains on high flow oxygen, per Airvo at 40 L/m, and FiO2 of 75%, with a pulse ox of 94%, she is awake and alert, she is quite hard of hearing, she is answering questions appropriate, she is oriented 3, she denies any worsening d yspnea, lung sounds are still positive for some scattered wheezes, she denies any chest pain, occasional cough. Patient has been afebrile, her CTA chest showed suboptimal study with of central pulmonary embolism, cardiomegaly with small bilateral pleural effusions, on a background of moderate emphysematous and to a lesser degree scattered pulmonary fibrotic changes. There are multifocal areas of organizing consolidation with the possibility of Covid 19 infection progression. However patient tested negative on 4 different occasions for coronavirus PCR. And her most recent test on 10/27/2020 also came back negative. She remains on IV Decadron, and Zosyn for possibility of aspiration pneumonia. Objective - Vital Signs Vital signs: Vital Signs Temp 98.0 F 10/28/20 14:00 Pulse 80 10/28/20 14:00 Resp 18 10/28/20 14:00 BP 123/55 10/28/20 14:00 Pulse Ox 91 L 10/28/20 14:00 Intake & Output 10/27/20 10/28/20 10/28/20 18:59 06:59 18:59 Intake Total 300 Output Total 2 Balance 300 -2 Intake: IV 100 Ampicillin-Sulbactam 3 gm 100 In Sodium Chloride 0.9% 100 ml @ 200 mls/hr IVPB Q6HR [facility] Rx#:[id number] Intake, IV Titration 200 Amount Piperacillin-Tazobactam 3 200 .375 gm In Sodium Chloride 0.9% 100 ml @ 25 mls/hr IVPB Q8HR [facility] Rx# :[id number] Output: Urine 2 Other: Voiding Method Incontinent Incontinent Incontinent # Voids 2 1 # Bowel Movements 1 - Exam GENERAL EXAM: Alert, very pleasant, 74-year-old white female quite hard of hearing, on Airvo at 40 L/m, and FiO2 of 75%, sat been 94% comfortable in no apparent distress. HEAD: Normocephalic/atraumatic. EYES: Normal reaction of pupils, equal size. Conjunctiva pink, sclera white. NOSE: Clear with pink turbinates. THROAT: No erythema or exudates. NECK: No masses, no JVD, no thyroid enlargement, no adenopathy. CHEST: No chest wall deformity. Symmetrical expansion. LUNGS: Equal air entry with diffuse wheezes CVS: Regular rate and rhythm, normal S1 and S2, no gallops, no murmurs, no rubs ABDOMEN: Soft, nontender. No hepatosplenomegaly, normal bowel sounds, no guarding or rigidity. EXTREMITIES: No clubbing, no edema, no cyanosis, 2+ pulses and upper and lower extremities. MUSCULOSKELETAL: Muscle strength and tone normal. SPINE: No scoliosis or deformity SKIN: No rashes CENTRAL NERVOUS SYSTEM: Alert and oriented -3. No focal deficits, tone is normal in all 4 extremities. PSYCHIATRIC: Alert and oriented -3. Appropriate affect. Intact judgment and i nsight. - Labs CBC & Chem 7: 10/26/20 06:54 10/26/20 06:54 Labs: Microbiology - Last 24 Hours (Table) 10/27/20 00:01 Blood Culture - Preliminary Blood No Growth after 24 hours 10/21/20 13:00 Blood Culture - Final Blood No Growth after 144 hours Assessment and Plan Plan: Assessment: #1. Acute hypoxic respiratory failure secondary to suspected aspiration pneumonia, COVID 19 pneumonia has been ruled out #2. Altered mental status, likely related to metabolic encephalopathy related to pneumonia and urinary tract infection, improved #3. Acute exacerbation of chronic obstructive pulmonary disease #4. Chronic and ongoing tobacco dependence #5. History of bipolar disorder and severe paranoia #6. History of congestive heart failure, with unknown EF #7. History of valvular heart disease #8. History of hypothyroidism #9. Diabetes poultice type II #10. Hypertension #11. Acute urinary tract infection related to Enterococcus faecalis Plan: Continue with Zosyn for empiric antibiotic coverage, leukocytosis is improving, patient has been afebrile, wean FiO2, mentation is improving, vital signs have been stable, follow-up chest x-ray in the morning, continue to follow. I performed a history & physical examination of the patient and discussed their management with my nurse practitioner, Johanna Brantley. I reviewed the nurse practitioner's note and agree with the documented findings and plan of care. Lung sounds are positive for bibasilar crackles. The findings and the impression was discussed with the patient. I attest to the documentation by the nurse practitioner. Time with Patient: Less than 30
--- NOTE | 2020-10-28 19:39 | P.PN ---
Subjective Progress Note Date: 10/28/20 Sofía Leslie is a 74 year-old female patient of Dr Jacob who presented to [facility] ER with a chief complaint of slurred speech, patient has a known history of bipolar disorder, schizophrenia, she is a poor historian her baseline mental status and speech pattern is not clear however caregivers. There is a change from her baseline and she was brought into emergency room to be evaluated for possible stroke. Patient was evaluated in the emergency room her temperature was 97.9 pulse 75 respiration 18 blood pressure 111/55 pulse ox 95% on room air, subsequently dropped to 83% on room air. Her laboratory data was significant for a white blood count of 26.8 sodium of 125 potassium of 6.0 and evidence of elevated AST at 101 and evidence of urinary tract infection. Patient underwent a computed tomography scan of the brain without contrast in the emergency room that revealed age-related atrophic and chronic small vessel disease changes without acute intracranial bleeding she also underwent computed tomography scan of the cervical spine due to recent fall there was no evidence for acute fracture or subluxation of the cervical spine CT angiogram of the brain did not reveal any significant abnormality in the ambler of [place] CT angiogram of the neck revealed 80% stenosis on the left internal carotid artery chest x-ray was positive for left upper lobe infiltrate correlate for pneumonia. EKG revealed accelerated junctional rhythm with nonspecific T-wave abnormality. Patient was started on IV antibiotic for UTI and pneumonia. She was started on IV fluid for severe hyponatremia she was admitted to medical floor infectious disease consultation and cardiology consultation were requested. On 10/23/2020 patient was seen and examined on the medical floor she is alert, slightly confused in no apparent distress there is no fever or chills no headache or dizziness no chest pain no shortness of breath no cough no nausea or vomiting no abdominal pain no diarrhea and no urinary symptoms. On 10/24/2020 patient was seen and examined on the medical floor she is alert confused in no apparent distress there is no fever or chills no headache or dizziness no chest pain no shortness of breath no cough no nausea or vomiting no abdominal pain no diarrhea and no urinary symptoms, patient is being treated for pneumonia, urinary tract infection, mental status changes she seems to be related to metabolic encephalopathy related to her infections, case was discussed with neurology today Dr. Robbins no evidence of acute CVA at this point. On 10/25/2020 patient was seen and examined on the medical floor she is alert confused in no distress she is complaining of cough her oxygen saturation is borderline with 2 L of nasal cannula, there is no fever or chills no headache or dizziness no chest pain no shortness of breath no nausea or vomiting no abdominal pain no diarrhea no blood in the stools no burning with urination no frequency or urgency and no hematuria. Liver enzymes are elevated liver ultrasound reveals enlarged common bile duct gastroenterology consultation re quested. On 10/26/2020 patient was seen and examined on the medical floor she is alert and oriented 3 in no apparent distress today she is maintained on oxygen 3 L nasal cannula her pulse ox is 89 at this time will repeat chest x-ray will repeat Covid 19 testing there is no fever or chills no headache or dizziness no chest pain no shortness of breath patient is still having cough no nausea or vo miting no abdominal pain no diarrhea no blood in the stools no burning with urination no frequency or urgency no hematuria On 10/27/2020 patient was seen and examined on the medical floor she is alert and oriented, her condition is worse today she developed worsening shortness of breath was decreased O2 saturation repeat chest x-ray, reveals bilateral infiltrates, her Covid 19 testing on presentation was negative, repeat testing ordered yesterday is still pending, patient will be started on IV Decadron pulmonary consultation was requested yesterday she is also followed by infectious disease On 10/28/2020 patient was seen and examined on the medical floor she is alert and oriented, she developed worsening shortness of breath was decreased O2 saturation repeat chest x-ray, reveals bilateral infiltrates, her Covid 19 testing on presentation was negative, repeat testing ordered yesterday is negative again, patient will be started on IV Decadron pulmonary consultation was requested yesterday she is also followed by infectious disease. she is maintained on antibiotics for possible aspiration pneumonia. Objective - Vital Signs Vital signs: Vital Signs Temp 98.1 F 10/28/20 08:00 Pulse 74 10/28/20 08:00 Resp 19 10/28/20 08:00 BP 141/63 10/28/20 08:00 Pulse Ox 94 L 10/28/20 11:50 Intake & Output 10/27/20 10/28/20 10/28/20 18:59 06:59 18:59 Intake Total 300 Output Total 2 Balance 300 -2 Intake: IV 100 Ampicillin-Sulbactam 3 gm 100 In Sodium Chloride 0.9% 100 ml @ 200 mls/hr IVPB Q6HR [facility] Rx#:[id number] Intake, IV Titration 200 Amount Piperacillin-Tazobactam 3 200 .375 gm In Sodium Chloride 0.9% 100 ml @ 25 mls/hr IVPB Q8HR [facility] Rx# :[id number] Output: Urine 2 Other: Voiding Method Incontinent Incontinent Incontinent # Voids 2 # Bowel Movements 1 - Exam In general patient is alert slightly confused in no apparent distress HEENT head normocephalic and atraumatic Neck is supple no JVD no goiter no lymphadenopathy Chest exam reveals a few scattered rhonchi no wheezing Cardiac exam reveals regular heart sounds S1 and S2 no gallops no murmurs Abdomen is soft nontender no organomegaly with normal bowel sounds Extremity exam reveals no edema no cyanosis or clubbing Neurological examination reveals no gross focal deficit - Labs CBC & Chem 7: 10/26/20 06:54 10/26/20 06:54 Labs: Microbiology - Last 24 Hours (Table) 10/27/20 00:01 Blood Culture - Preliminary Blood No Growth after 24 hours 10/21/20 13:00 Blood Culture - Final Blood No Growth after 144 hours Assessment and Plan Plan: 1. Left upper lobe pneumonia maintained on IV antibiotic infectious disease consultation requested 2. Urinary tract infection 3. Hyponatremia 4. Hyperkalemia 5. Possible worsening mental status changes and slurred speech Neurology consultation was requested. 6. Elevated liver enzymes with abnormal liver ultrasound showing dilated common bile duct gastroenterology consultation requested At this time patient was started on IV Rocephin and oral Zithromax Medication and labs were reviewed and reordered Will follow during this admission for medical management
[2020-10-28] MEDS: ATORVASTATIN 40 MG TAB PO SCH (20:06)
[2020-10-29] MEDS: PIPERACILLIN-TAZOBACTAM 3.375 GM in SODIUM CHLORIDE 0.9% 100 ML IVPB SCH ×3 (00:06→15:58)
--- NOTE | 2020-10-29 02:18 | PN ---
PROGRESS NOTE DATE OF SERVICE: 10/28/2020 REASON FOR FOLLOWUP: Pneumonia and UTI. INTERVAL HISTORY: The patient is currently afebrile. She is still requiring high-flow supplemental oxygen. The patient denies having any chest pain. She did have some cough. Complains of some weakness in the legs. No abdominal pain or diarrhea. PHYSICAL EXAMINATION: Blood pressure 134/67 with pulse of 63, temperature 98. She is 96% on 20% FiO2. General description is an elderly female lying in bed in no distress. RESPIRATORY SYSTEM: Unlabored breathing, decreased breath sounds at the bases. No wheeze. HEART: S1, S2. Regular rate and rhythm. ABDOMEN: Soft. No tenderness. LABS: White count normal at 9.0. BUN of 8, creatinine 0.57. Schneider PCR has been negative. DIAGNOSTIC IMPRESSION AND PLAN: Patient admitted to the hospital with fever and elevated white count. Concern likely for pneumonia possible respiratory etiology as well as urinary tract infection. The patient is currently covered with Zosyn to continue. White count normalized. Still on high-flow supplemental oxygen and Pulmonary following the patient closely. Continue with supportive care. MMODL / IJN: [id number] /
[2020-10-29 07:11] LABS: Basophils % (A) 0 %; Eosinophils # (A) 0.2 k/uL (0-0.7); Eosinophils % (A) 2 %; HGB 8.5 gm/dL (11.4-16.0); Lymphocytes # (A) 1.2 k/uL (1.0-4.8); Lymphocytes % (A) 13 %; MCH 30.3 pg (25.0-35.0); MCHC 32.6 g/dL (31.0-37.0); MCV 92.7 fL (80.0-100.0); Mean Platelet Volume 7.1; Monocytes # (A) 0.6 k/uL (0-1.0); Monocytes % (A) 6 %; Neutrophils # (A) 7.7 k/uL (1.3-7.7); Neutrophils % (A) 78 %; Platelet Count 406 k/uL (150-450); RDW 15.3 % (11.5-15.5)
[2020-10-29] MEDS: CHOLECALCIFEROL 400 UNIT TAB PO SCH (08:02)
[2020-10-29] MEDS: ZINC SULFATE 220 MG CAP PO SCH (08:02)
[2020-10-29] MEDS: ASPIRIN 81 MG PO SCH (08:02)
[2020-10-29] MEDS: polyethylene glycoL 3350 17 GM POWD.PACK PO SCH (08:02)
[2020-10-29] MEDS: ASCORBIC ACID 500 MG TAB PO SCH (08:03)
[2020-10-29] MEDS: guaiFENesin SYRUP 100MG/5ML 200 MG/10 ML CUP PO SCH ×2 (08:03→20:22)
[2020-10-29] MEDS: DOCUSATE 100 MG CAP PO SCH ×2 (08:03→20:22)
[2020-10-29] MEDS: buPROPion SR 150 MG TABLET.ER PO SCH ×2 (08:03→20:22)
[2020-10-29] MEDS: BACLOFEN 10 MG TAB PO SCH ×2 (08:03→20:22)
[2020-10-29] MEDS: LEVOTHYROXINE 50 MCG TAB PO SCH (08:03)
[2020-10-29] MEDS: risperiDONE 0.5 MG TAB PO SCH ×2 (08:03→20:22)
[2020-10-29] MEDS: CLOPIDOGREL 75 MG TAB PO SCH (08:03)
[2020-10-29] MEDS: GABAPENTIN 300 MG CAP PO SCH ×3 (08:03→20:22)
[2020-10-29] MEDS: metFORMIN 500 MG TAB PO SCH ×2 (08:03→20:22)
[2020-10-29] MEDS: SYMBICORT 80-4.5 MCG INHALER INHALATION SCH ×2 (08:04→19:42)
[2020-10-29] MEDS: ALBUTEROL HFA INHALER INHALATION PRN ×2 (08:04→12:15)
[2020-10-29] MEDS: SODIUM CHLORIDE 0.9% 1,000 ML IV SCH ×2 (08:04→20:26)
[2020-10-29] MEDS: DEXAMETHASONE SOD PHOSPHATE 10 MG/ML 1 ML VIAL IV SCH (08:04)
[2020-10-29 10:15] LABS: African American GFR (CKD) 109.7 (60.0-200.0); Albumin 2.6 g/dL (3.80-4.90); Anion Gap 5.2 mmol/L (4.00-12.00); Calcium 8.6 mg/dL (8.7-10.3); Carbon Dioxide 31.8 mmol/L (21.6-31.8); Globulin 2.6 g/dL (1.6-3.3); Non-African American GFR(CKD) 94.7 (60.0-200.0); Potassium 3.9 mmol/L (3.5-5.5); Total Bilirubin 0.4 mg/dL (0.2-1.2); Total Protein 5.2 g/dL (6.2-8.2)
[2020-10-29] MEDS: ENOXAPARIN 40 MG/0.4 ML SYRINGE SQ SCH (11:20)
[2020-10-29] MEDS: TIOTROPIUM 18 MCG/PUFF INHALER INHALATION SCH (12:15)
[2020-10-29] MEDS: methylPREDNISolone SOD SUCCI 125 MG/2 ML VIAL IV SCH (16:38)
--- NOTE | 2020-10-29 16:40 | P.PN ---
Subjective Progress Note Date: 10/29/20 Principal diagnosis: Shortness of breath This is a 74-year-old female patient who follows with Dr. Jacob as her primary care provider. She has a history of hypertension, hypothyroidism, diabetes mellitus, chronic obstructive pulmonary disease, severe paranoia and schizophrenia, chronic and ongoing tobacco dependence. She was brought into the emergency room via EMS back on 10/21/2020 for altered mental status upon wakening. She was unable to provide any significant history. She did have slurred speech and possibly suffered a fall. CAT scan revealed age related atrophic and chronic small vessel ischemic changes without acute intracranial process. Urine positive for enterococcal faecalis. Blood culture revealed no growth. Chest x-ray did reveal left lung infiltrate. She had been initiated on Unasyn. Her oxygen requirements continued to worsen and she is currently on the AirVo high flow oxygen device at 30 L and 80% FiO2 to maintain O2 saturation in the low 90s. We're consulted today 10/27/2020 for the same. Chest x-ray reveals significant diffuse left mid to lower lung edema/infiltrate and worsening diffuse right lung edema/infiltrate. An ultrasound of the chest was requested and there was 0 amount of fluid in the right lung and 5.5 cm pocket in the left. Not enough to consider a thoracentesis. CAT scan of the chest revealed cardiomegaly with small bilateral pleural effusions. Background moderate emphysematous changes and scattered fibrotic changes. There are multifocal areas of organizing consolidation bilaterally consistent with CoVID 19 infection. Again, her initial screen was negative. She is seen on the regular medical floor. She is currently sitting up in bed. She is oriented to self only. She no she is in a facility unclear which one. Not sure of the day or the time. Not sure why she is here. White count 9.0. Hemoglobin 9.5. D- dimer 4.16. Sodium 134. Potassium 3.7. Creatinine 0.57. LDH 221. C-reactive protein 11.8. Pro-calcitonin 0.11. She is switched to Zosyn. Repeat CoVID 19 screen pending. on 10/28/2020 patient is seen in follow-up on Gen. medical surgical floor. She remains on high flow oxygen, per Airvo at 40 L/m, and FiO2 of 75%, with a pulse ox of 94%, she is awake and alert, she is quite hard of hearing, she is answering questions appropriate, she is oriented 3, she denies any worsening d yspnea, lung sounds are still positive for some scattered wheezes, she denies any chest pain, occasional cough. Patient has been afebrile, her CTA chest showed suboptimal study with of central pulmonary embolism, cardiomegaly with small bilateral pleural effusions, on a background of moderate emphysematous and to a lesser degree scattered pulmonary fibrotic changes. There are multifocal areas of organizing consolidation with the possibility of Covid 19 infection progression. However patient tested negative on 4 different occasions for coronavirus PCR. And her most recent test on 10/27/2020 also came back negative. She remains on IV Decadron, and Zosyn for possibility of aspiration pneumonia. On 10/29/2020 patient seen in follow-up on medical surgical floor. She remains on Airvo 40 L, and FiO2 of 74% with a pulse ox of 94%, still requiring high flow oxygen, she has a congested cough, but not bringing up any sputum, remains Zosyn for empiric antibiotic coverage, she is on bronchodilators, her mentation has improved, patient is awake and alert, she is answering questions appropriately. She's been afebrile. Denies any chest pain, or hemoptysis, no new chest x-ray, her urine culture came back positive for Enterococcus faecalis, is sensitive to penicillin, blood cultures have shown no growth. ID service is following. Objective - Vital Signs Vital signs: Vital Signs Temp 98.8 F 10/29/20 11:44 Pulse 72 10/29/20 11:44 Resp 17 10/29/20 11:44 BP 138/67 10/29/20 11:44 Pulse Ox 93 L 10/29/20 12:16 Intake & Output 10/28/20 10/29/20 10/29/20 18:59 06:59 18:59 Intake Total 200 360 Output Total 2 Balance -2 200 360 Weight 46 kg Intake: IV 100 Sodium Chloride 0.9% 1, 100 000 ml @ 80 mls/hr IV . [id number] [facility] Rx#:[id number] Intake, IV Titration 100 Amount Piperacillin-Tazobactam 3 100 .375 gm In Sodium Chloride 0.9% 100 ml @ 25 mls/hr IVPB Q8HR [facility] Rx# :[id number] Oral 360 Output: Urine 2 Other: Voiding Method Incontinent Incontinent Incontinent # Voids 1 1 # Bowel Movements 1 - Exam GENERAL EXAM: Alert, very pleasant, 74-year-old white female quite hard of hearing, on Airvo at 40 L/m, and FiO2 of 75%, sat been 94% comfortable in no apparent distress. HEAD: Normocephalic/atraumatic. EYES: Normal reaction of pupils, equal size. Conjunctiva pink, sclera white. NOSE: Clear with pink turbinates. THROAT: No erythema or exudates. NECK: No masses, no JVD, no thyroid enlargement, no adenopathy. CHEST: No chest wall deformity. Symmetrical expansion. LUNGS: Equal air entry with diffuse wheezes CVS: Regular rate and rhythm, normal S1 and S2, no gallops, no murmurs, no rubs ABDOMEN: Soft, nontender. No hepatosplenomegaly, normal bowel sounds, no guarding or rigidity. EXTREMITIES: No clubbing, no edema, no cyanosis, 2+ pulses and upper and lower extremities. MUSCULOSKELETAL: Muscle strength and tone normal. SPINE: No scoliosis or deformity SKIN: No rashes CENTRAL NERVOUS SYSTEM: Alert and oriented -3. No focal deficits, tone is normal in all 4 extremities. PSYCHIATRIC: Alert and oriented -3. Appropriate affect. Intact judgment and insight. - Labs CBC & Chem 7: 10/29/20 06:26 10/29/20 06:26 Labs: Abnormal Lab Results - Last 24 Hours (Table) 10/29/20 10/29/20 Range/Units 06:26 06:26 RBC 2.80 L (3.80-5.40) m/uL Hgb 8.5 L (11.4-16.0) gm/dL Hct 26.0 L (34.0-46.0) % Creatinine 0.5 L (0.6-1.5) mg/dL BUN/Creatinine Ratio 22.00 H (12.00-20.00) Ratio Calcium 8.6 L (8.7-10.3) mg/dL AST 72 H (13-35) U/L ALT 89 H (8-44) U/L Total Protein 5.2 L (6.2-8.2) g/dL Albumin 2.60 L (3.80-4.90) g/dL Albumin/Globulin Ratio 1.00 L (1.60-3.17) g/dL Microbiology - Last 24 Hours (Table) 10/27/20 00:01 Blood Culture - Preliminary Blood No Growth after 48 hours Assessment and Plan Plan: Assessment: #1. Acute hypoxic respiratory failure secondary to suspected aspiration pneu monia, COVID 19 pneumonia has been ruled out #2. Altered mental status, likely related to metabolic encephalopathy related to pneumonia and urinary tract infection, improved #3. Acute exacerbation of chronic obstructive pulmonary disease #4. Chronic and ongoing tobacco dependence #5. History of bipolar disorder and severe paranoia #6. History of congestive heart failure, with unknown EF #7. History of valvular heart disease #8. History of hypothyroidism #9. Diabetes poultice type II #10. Hypertension #11. Acute urinary tract infection related to Enterococcus faecalis Plan: Continue current antibiotic coverage, patient has been afebrile, still requiring high flow oxygen, her chest CTA shows extensive multifocal areas of organizing consolidation bilaterally, she has a congested cough, not able to bring up any sputum, we will add IV Solu-Medrol, will continue with bronchodilators, encourage deep breathing and coughing, follow-up chest x-ray in the morning, wean FiO2, will follow I performed a history & physical examination of the patient and discussed their management with my nurse practitioner, Johanna Brantley. I reviewed the nurse practitioner's note and agree with the documented findings and plan of care. Lung sounds are positive for bibasilar crackles. The findings and the impression was discussed with the patient. I attest to the documentation by the nurse practitioner. Time with Patient: Less than 30
--- NOTE | 2020-10-29 18:00 | P.PN ---
Subjective Progress Note Date: 10/29/20 Sofía Leslie is a 74 year-old female patient of Dr Jacob who presented to [facility] ER with a chief complaint of slurred speech, patient has a known history of bipolar disorder, schizophrenia, she is a poor historian her baseline mental status and speech pattern is not clear however caregivers. There is a change from her baseline and she was brought into emergency room to be evaluated for possible stroke. Patient was evaluated in the emergency room her temperature was 97.9 pulse 75 respiration 18 blood pressure 111/55 pulse ox 95% on room air, subsequently dropped to 83% on room air. Her laboratory data was significant for a white blood count of 26.8 sodium of 125 potassium of 6.0 and evidence of elevated AST at 101 and evidence of urinary tract infection. Patient underwent a computed tomography scan of the brain without contrast in the emergency room that revealed age-related atrophic and chronic small vessel disease changes without acute intracranial bleeding she also underwent computed tomography scan of the cervical spine due to recent fall there was no evidence for acute fracture or subluxation of the cervical spine CT angiogram of the brain did not reveal any significant abnormality in the [place] of [place] CT angiogram of the neck revealed 80% stenosis on the left internal carotid artery chest x-ray was positive for left upper lobe infiltrate correlate for pneumonia. EKG revealed accelerated junctional rhythm with nonspecific T-wave abnormality. Patient was started on IV antibiotic for UTI and pneumonia. She was started on IV fluid for severe hyponatremia she was admitted to medical floor infectious disease consultation and cardiology consultation were requested. On 10/23/2020 patient was seen and examined on the medical floor she is alert, slightly confused in no apparent distress there is no fever or chills no headache or dizziness no chest pain no shortness of breath no cough no nausea or vomiting no abdominal pain no diarrhea and no urinary symptoms. On 10/24/2020 patient was seen and examined on the medical floor she is alert confused in no apparent distress there is no fever or chills no headache or dizziness no chest pain no shortness of breath no cough no nausea or vomiting no abdominal pain no diarrhea and no urinary symptoms, patient is being treated for pneumonia, urinary tract infection, mental status changes she seems to be related to metabolic encephalopathy related to her infections, case was discussed with neurology today Dr. Robbins no evidence of acute CVA at this point. On 10/25/2020 patient was seen and examined on the medical floor she is alert confused in no distress she is complaining of cough her oxygen saturation is borderline with 2 L of nasal cannula, there is no fever or chills no headache or dizziness no chest pain no shortness of breath no nausea or vomiting no abdominal pain no diarrhea no blood in the stools no burning with urination no frequency or urgency and no hematuria. Liver enzymes are elevated liver ultrasound reveals enlarged common bile duct gastroenterology consultation re quested. On 10/26/2020 patient was seen and examined on the medical floor she is alert and oriented 3 in no apparent distress today she is maintained on oxygen 3 L nasal cannula her pulse ox is 89 at this time will repeat chest x-ray will repeat Covid 19 testing there is no fever or chills no headache or dizziness no chest pain no shortness of breath patient is still having cough no nausea or vo miting no abdominal pain no diarrhea no blood in the stools no burning with urination no frequency or urgency no hematuria On 10/27/2020 patient was seen and examined on the medical floor she is alert and oriented, her condition is worse today she developed worsening shortness of breath was decreased O2 saturation repeat chest x-ray, reveals bilateral infiltrates, her Covid 19 testing on presentation was negative, repeat testing ordered yesterday is still pending, patient will be started on IV Decadron pulmonary consultation was requested yesterday she is also followed by infectious disease On 10/28/2020 patient was seen and examined on the medical floor she is alert and oriented, she developed worsening shortness of breath was decreased O2 saturation repeat chest x-ray, reveals bilateral infiltrates, her Covid 19 testing on presentation was negative, repeat testing ordered yesterday is negative again, patient will be started on IV Decadron pulmonary consultation was requested yesterday she is also followed by infectious disease. she is maintained on antibiotics for possible aspiration pneumonia. On 10/29/2020 patient was seen and examined on the medical floor she is alert and oriented 3 in no apparent distress. She remains on Airvo 40 L, and FiO2 of 74% with a pulse ox of 94%,, she is complaining of cough and shortness of breath otherwise she denies any complaints there is no fever or chills no headache or dizziness no chest pain no nausea or vomiting no abdominal pain no diarrhea no blood in the stools no burning with urination no frequency or urgency and no hematuria pulmonary and infectious disease consultants following Objective - Vital Signs Vital signs: Vital Signs Temp 98.1 F 10/29/20 07:45 Pulse 67 10/29/20 07:45 Resp 18 10/29/20 07:45 BP 135/64 10/29/20 07:45 Pulse Ox 90 L 10/29/20 08:05 Intake & Output 10/28/20 10/29/20 10/29/20 18:59 06:59 18:59 Intake Total 200 Output Total 2 Balance -2 200 Intake: IV 100 Sodium Chloride 0.9% 1, 100 000 ml @ 80 mls/hr IV . [id number] [facility] Rx#:[id number] Intake, IV Titration 100 Amount Piperacillin-Tazobactam 3 100 .375 gm In Sodium Chloride 0.9% 100 ml @ 25 mls/hr IVPB Q8HR [facility] Rx# :[id number] Output: Urine 2 Other: Voiding Method Incontinent Incontinent # Voids 1 1 # Bowel Movements 1 - Exam In general patient is alert slightly confused in no apparent distress HEENT head normocephalic and atraumatic Neck is supple no JVD no goiter no lymphadenopathy Chest exam reveals a few scattered rhonchi no wheezing Cardiac exam reveals regular heart sounds S1 and S2 no gallops no murmurs Abdomen is soft nontender no organomegaly with normal bowel sounds Extremity exam reveals no edema no cyanosis or clubbing Neurological examination reveals no gross focal deficit - Labs CBC & Chem 7: 10/29/20 06:26 10/29/20 06:26 Labs: Abnormal Lab Results - Last 24 Hours (Table) 10/29/20 Range/Units 06:26 RBC 2.80 L (3.80-5.40) m/uL Hgb 8.5 L (11.4-16.0) gm/dL Hct 26.0 L (34.0-46.0) % Microbiology - Last 24 Hours (Table) 10/27/20 00:01 Blood Culture - Preliminary Blood No Growth after 48 hours Assessment and Plan Plan: 1. Left upper lobe pneumonia maintained on IV antibiotic infectious disease consultation requested 2. Urinary tract infection 3. Hyponatremia 4. Hyperkalemia 5. Possible worsening mental status changes and slurred speech Neurology consultation was requested. 6. Elevated liver enzymes with abnormal liver ultrasound showing dilated common bile duct gastroenterology consultation requested At this time patient was started on IV Rocephin and oral Zithromax Medication and labs were reviewed and reordered Will follow during this admission for medical management
[2020-10-29] MEDS: ATORVASTATIN 40 MG TAB PO SCH (20:22)
[2020-10-29] MEDS ORDERED: LEVOFLOXACIN 750MG-D5W PMX 750 MG in DEXTROSE/WATER 1 150ML.BAG IVPB STA (22:34)
[2020-10-30] MEDS: methylPREDNISolone SOD SUCCI 125 MG/2 ML VIAL IV SCH ×5 (00:47→23:30)
[2020-10-30] MEDS: PIPERACILLIN-TAZOBACTAM 3.375 GM in SODIUM CHLORIDE 0.9% 100 ML IVPB SCH ×4 (00:47→23:30)
--- NOTE | 2020-10-30 02:15 | PN ---
PROGRESS NOTE DATE OF SERVICE: 10/29/2020 REASON FOR FOLLOWUP: Pneumonia. INTERVAL HISTORY: The patient is currently afebrile. Patient is breathing more comfortably. FiO2 is cut down to 40%. Denies having any chest pain. Did have a cough, not bringing up sputum. No vomiting or any diarrhea has been reported. PHYSICAL EXAMINATION: Blood pressure 170/54 with a pulse of 73, temperature 98.1. She is 94% on 40% FiO2. General description is an elderly female lying in bed in no distress. RESPIRATORY SYSTEM: Unlabored breathing, decreased breath sounds at the bases. No wheeze. HEART: S1, S2. Regular rate and rhythm. ABDOMEN: Soft, no tenderness. LABS: Hemoglobin 8.5, white count 10, BUN of 11, creatinine 0.5. Blood culture has been negative. No sputum has been collected. DIAGNOSTIC IMPRESSION AND PLAN: Patient admitted to the hospital with fever, elevated white count with concern initially for pneumonia and possible gram-negative; however, chest x-ray and CT has been most suspicious for a COVID infection. However, the patient carver PCR has been negative x2. We will check urine for Legionella antigen, add Levaquin and monitor her clinical course closely. MMODL / IJN: [id number] /
[2020-10-30 06:42] LABS: Basophils % (A) 0 %; Eosinophils % (A) 0 %; HCT 28.2 % (34.0-46.0); Lymphocytes # (A) 0.6 k/uL (1.0-4.8); Lymphocytes % (A) 5 %; MCH 29.9 pg (25.0-35.0); MCHC 31.9 g/dL (31.0-37.0); MCV 93.6 fL (80.0-100.0); Mean Platelet Volume 6.8; Monocytes # (A) 0.4 k/uL (0-1.0); Monocytes % (A) 3 %; Neutrophils # (A) 9.7 k/uL (1.3-7.7); Neutrophils % (A) 90 %; Platelet Count 461 k/uL (150-450); RBC 3.01 m/uL (3.80-5.40); WBC 10.8 k/uL (3.8-10.6)
[2020-10-30] MEDS: CLOPIDOGREL 75 MG TAB PO SCH (07:54)
[2020-10-30] MEDS: CHOLECALCIFEROL 400 UNIT TAB PO SCH (07:54)
[2020-10-30] MEDS: GABAPENTIN 300 MG CAP PO SCH ×3 (07:54→21:33)
[2020-10-30] MEDS: DOCUSATE 100 MG CAP PO SCH ×2 (07:54→21:32)
[2020-10-30] MEDS: ZINC SULFATE 220 MG CAP PO SCH (07:54)
[2020-10-30] MEDS: ASPIRIN 81 MG PO SCH (07:55)
[2020-10-30] MEDS: buPROPion SR 150 MG TABLET.ER PO SCH ×2 (07:55→21:33)
[2020-10-30] MEDS: ASCORBIC ACID 500 MG TAB PO SCH (07:55)
[2020-10-30] MEDS: LEVOTHYROXINE 50 MCG TAB PO SCH (07:55)
[2020-10-30] MEDS: risperiDONE 0.5 MG TAB PO SCH ×2 (07:55→21:34)
[2020-10-30] MEDS: metFORMIN 500 MG TAB PO SCH ×2 (07:55→21:33)
[2020-10-30] MEDS: polyethylene glycoL 3350 17 GM POWD.PACK PO SCH (07:56)
[2020-10-30] MEDS: ENOXAPARIN 40 MG/0.4 ML SYRINGE SQ SCH (07:56)
[2020-10-30] MEDS: BACLOFEN 10 MG TAB PO SCH ×2 (07:57→21:33)
[2020-10-30] MEDS: ACETAMINOPHEN TAB 500 MG TAB PO PRN (08:00)
[2020-10-30] MEDS: guaiFENesin SYRUP 100MG/5ML 200 MG/10 ML CUP PO SCH ×2 (08:03→21:33)
[2020-10-30] MEDS ORDERED: BENZOCAINE/MENTHOL LOZENG 1 EACH LOZENGE MUCOUS MEM PRN (08:06)
[2020-10-30] MEDS ORDERED: HYDROcodone/APAP 5-325MG 1 EACH TAB PO PRN (08:07)
--- NOTE | 2020-10-30 08:49 | XR ---
EXAMINATION TYPE: XR chest 1V portable DATE OF EXAM: 10/30/2020 COMPARISON: 10/27/2020 HISTORY: Cough possible pneumonia TECHNIQUE: Single frontal view of the chest is obtained. FINDINGS: Diffuse interstitial pattern with cardiomegaly, bilateral effusions and patchy bilateral a reas of consolidation. Heart is enlarged. No sizable pneumothorax. IMPRESSION: 1. Diffuse pleural-parenchymal changes are similar to prior exam with mild improvement of the left yaz ng base.
[2020-10-30] MEDS: SYMBICORT 80-4.5 MCG INHALER INHALATION SCH ×2 (10:08→20:24)
[2020-10-30] MEDS: TIOTROPIUM 18 MCG/PUFF INHALER INHALATION SCH (10:08)
[2020-10-30 10:57] LABS: African American GFR (CKD) 109.7 (60.0-200.0); Albumin/Globulin Ratio 1.03 (1.60-3.17); Anion Gap 8.2 mmol/L (4.00-12.00); Calcium 8.8 mg/dL (8.7-10.3); Carbon Dioxide 28.8 mmol/L (21.6-31.8); Globulin 2.9 g/dL (1.6-3.3); Non-African American GFR(CKD) 94.7 (60.0-200.0); Potassium 4.4 mmol/L (3.5-5.5); Total Bilirubin 0.3 mg/dL (0.3-1.2); Total Protein 5.9 g/dL (6.2-8.2)
[2020-10-30] MEDS: SODIUM CHLORIDE 0.9% 1,000 ML IV SCH ×2 (11:09→23:10)
[2020-10-30] MEDS: ALBUTEROL HFA INHALER INHALATION PRN ×3 (13:11→20:24)
--- NOTE | 2020-10-30 14:24 | P.PN ---
Subjective Progress Note Date: 10/30/20 Principal diagnosis: Acute hypoxic respiratory failure secondary to suspected aspiration pneumonia. CoVID 19 ruled out This is a 74-year-old female patient who follows with Dr. Jacob as her primary care provider. She has a history of hypertension, hypothyroidism, diabetes [place], chronic obstructive pulmonary disease, severe paranoia and schizophrenia, chronic and ongoing tobacco dependence. She was brought into the emergency room via EMS back on 10/21/2020 for altered mental status upon wakening. She was unable to provide any significant history. She did have slurred speech and possibly suffered a fall. CAT scan revealed age related atrophic and chronic small vessel ischemic changes without acute intracranial process. Urine positive for enterococcal faecalis. Blood culture revealed no growth. Chest x- ray did reveal left lung infiltrate. She had been initiated on Unasyn. Her oxygen requirements continued to worsen and she is currently on the AirVo high flow oxygen device at 30 L and 80% FiO2 to maintain O2 saturation in the low 90s. We're consulted today 10/27/2020 for the same. Chest x-ray reveals significant diffuse left mid to lower lung edema/infiltrate and worsening diffuse right lung edema/infiltrate. An ultrasound of the chest was requested and there was 0 amount of fluid in the right lung and 5.5 cm pocket in the left. Not enough to consider a thoracentesis. CAT scan of the chest revealed cardiomegaly with small bilateral pleural effusions. Background moderate emphysematous changes and scattered fibrotic changes. There are multifocal areas of organizing consolidation bilaterally consistent with CoVID 19 infection. Again, her initial screen was negative. She is seen on the regular medical floor. She is currently sitting up in bed. She is oriented to self only. She no she is in a facility unclear which one. Not sure of the day or the time. Not sure why she is here. White count 9.0. Hemoglobin 9.5. D-dimer 4.16. Sodium 134. Potassium 3.7. Creatinine 0.57. LDH 221. C-reactive protein 11.8. Pro-calcitonin 0.11. She is switched to Zosyn. Repeat CoVID 19 screen pending. on 10/28/2020 patient is seen in follow-up on Gen. medical surgical floor. She remains on high flow oxygen, per Airvo at 40 L/m, and FiO2 of 75%, with a pulse ox of 94%, she is awake and alert, she is quite hard of hearing, she is answering questions appropriate, she is oriented 3, she denies any worsening dyspnea, lung sounds are still positive for some scattered wheezes, she denies any chest pain, occasional cough. Patient has been afebrile, her CTA chest showed suboptimal study with of central pulmonary embolism, cardiomegaly with small bilateral pleural effusions, on a background of moderate emphysematous and to a lesser degree scattered pulmonary fibrotic changes. There are multifocal areas of organizing consolidation with the possibility of Covid 19 infection progression. However patient tested negative on 4 different occasions for coronavirus PCR. And her most recent test on 10/27/2020 also came back nega tive. She remains on IV Decadron, and Zosyn for possibility of aspiration pneumonia. On 10/29/2020 patient seen in follow-up on medical surgical floor. She remains on Airvo 40 L, and FiO2 of 74% with a pulse ox of 94%, still requiring high flow oxygen, she has a congested cough, but not bringing up any sputum, remains Zosyn for empiric antibiotic coverage, she is on bronchodilators, her mentation has improved, patient is awake and alert, she is answering questions appropriately. She's been afebrile. Denies any chest pain, or hemoptysis, no new chest x-ray, her urine culture came back positive for Enterococcus faecalis, is sensitive to penicillin, blood cultures have shown no growth. ID service is following. The patient is seen today 10/30/2020 in follow-up on the regular medical floor. She is currently resting comfortably in bed. He remains on AirVo high flow oxygen at 35 L and 73% FiO2 to maintain O2 saturations in the high 80s low 90s. Patient is restless at times and pulse her device off. She's currently afebrile. Chest x-ray continues to reveal diffuse pleural parenchymal changes with mild improvement in the left lung base. White count 10.8. Hemoglobin 9.0. Sodium 135. Potassium 4.4. Creatinine 0.5. Remains on bronchodilators, IV Solu-Medrol, Zosyn. Objective - Vital Signs Vital signs: Vital Signs Temp 97.8 F 10/30/20 13:07 Pulse 69 10/30/20 13:07 Resp 28 H 10/30/20 13:07 BP 161/69 10/30/20 13:07 Pulse Ox 88 L 10/30/20 13:07 Intake & Output 10/29/20 10/30/20 10/30/20 18:59 06:59 18:59 Intake Total 360 Balance 360 Weight 46 kg Intake: Oral 360 Other: Voiding Method Incontinent Incontinent # Voids 4 # Bowel Movements 4 - Exam GENERAL EXAM: Alert, restless, on AirVo high flow oxygen, comfortable in no apparent distress. HEAD: Normocephalic. EYES: Normal reaction of pupils, equal size. NOSE: Clear with pink turbinates. THROAT: No erythema or exudates. NECK: No masses, no JVD. CHEST: No chest wall deformity. LUNGS: Equal air entry with bilateral scattered rhonchi, crackles in the posterior bases CVS: S1 and S2 normal with no audible murmur, regular rhythm. ABDOMEN: No hepatosplenomegaly, normal bowel sounds, no guarding or rigidity. SPINE: No scoliosis or deformity SKIN: No rashes CENTRAL NERVOUS SYSTEM: No focal deficits, tone is normal in all 4 extremities. EXTREMITIES: There is no peripheral edema. No clubbing, no cyanosis. Peripheral pulses are intact. - Labs CBC & Chem 7: 10/30/20 06:10 10/30/20 06:10 Labs: Abnormal Lab Results - Last 24 Hours (Table) 10/30/20 10/30/20 Range/Units 06:10 06:10 WBC 10.8 H (3.8-10.6) k/uL RBC 3.01 L (3.80-5.40) m/uL Hgb 9.0 L (11.4-16.0) gm/dL Hct 28.2 L (34.0-46.0) % Plt Count 461 H (150-450) k/uL Neutrophils # 9.7 H (1.3-7.7) k/uL Lymphocytes # 0.6 L (1.0-4.8) k/uL Creatinine 0.5 L (0.6-1.5) mg/dL BUN/Creatinine Ratio 26.00 H (12.00-20.00) Ratio Glucose 128 H (70-110) mg/dL AST 121 H (13-35) U/L ALT 162 H (8-44) U/L Total Protein 5.9 L (6.2-8.2) g/dL Albumin 3.00 L (3.80-4.90) g/dL Albumin/Globulin Ratio 1.03 L (1.60-3.17) g/dL Microbiology - Last 24 Hours (Table) 10/27/20 00:01 Blood Culture - Preliminary Blood No Growth after 72 hours Assessment and Plan Assessment: 1 Acute hypoxic respiratory failure secondary to suspected aspiration pneumonia, CoVID 19 ruled out 2 Altered mental status suspect secondary to above 3 Acute exacerbation of chronic obstructive pulmonary disease 4 Chronic and ongoing tobacco dependence 5 Severe paranoia and bipolar disorder 6 history of congestive heart failure 7 History of valvular heart disease 8 Hypothyroidism 9 Diabetes mellitus 10 Hypertension Plan: The patient was seen and evaluated by Dr. Robbins Chest x-ray and labs reviewed Continue Symbicort and DuoNeb inhalations Continue Zosyn Continue IV Solu-Medrol Titrate the FiO2 as tolerated We will continue to follow and make further recommendations based on her clinical status I, the cosigning physician, performed a history & physical examination of the patient. Lungs sounds with bilateral rhonchi, crackles in the posterior bases diminished. Maintaining good O2 saturations in the 90s on 73% FiO2 via the AirVo. I discussed the assessment and plan of care with my nurse practitioner, Sona Parker. I attest to the above note as dictated by her.
[2020-10-30] MEDS: ALPRAZolam 0.25 MG TAB PO PRN (15:49)
--- NOTE | 2020-10-30 18:42 | P.PN ---
Subjective Progress Note Date: 10/30/20 Sofía Leslie is a 74 year-old female patient of Dr Jacob who presented to [facility] ER with a chief complaint of slurred speech, patient has a known history of bipolar disorder, schizophrenia, she is a poor historian her baseline mental status and speech pattern is not clear however caregivers. There is a change from her baseline and she was brought into emergency room to be evaluated for possible stroke. Patient was evaluated in the emergency room her temperature was 97.9 pulse 75 respiration 18 blood pressure 111/55 pulse ox 95% on room air, subsequently dropped to 83% on room air. Her laboratory data was significant for a white blood count of 26.8 sodium of 125 potassium of 6.0 and evidence of elevated AST at 101 and evidence of urinary tract infection. Patient underwent a computed tomography scan of the brain without contrast in the emergency room that revealed age-related atrophic and chronic small vessel disease changes without acute intracranial bleeding she also underwent computed tomography scan of the cervical spine due to recent fall there was no evidence for acute fracture or subluxation of the cervical spine CT angiogram of the brain did not reveal any significant abnormality in the [place] CT angiogram of the neck revealed 80% stenosis on the left internal carotid artery chest x-ray was positive for left upper lobe infiltrate correlate for pneumonia. EKG revealed accelerated junctional rhythm with nonspecific T-wave abnormality. Patient was started on IV antibiotic for UTI and pneumonia. She was started on IV fluid for severe hyponatremia she was admitted to medical floor infectious disease consultation and cardiology consultation were requested. On 10/23/2020 patient was seen and examined on the medical floor she is alert, slightly confused in no apparent distress there is no fever or chills no headache or dizziness no chest pain no shortness of breath no cough no nausea or vomiting no abdominal pain no diarrhea and no urinary symptoms. On 10/24/2020 patient was seen and examined on the medical floor she is alert confused in no apparent distress there is no fever or chills no headache or dizziness no chest pain no shortness of breath no cough no nausea or vomiting no abdominal pain no diarrhea and no urinary symptoms, patient is being treated for pneumonia, urinary tract infection, mental status changes she seems to be related to metabolic encephalopathy related to her infections, case was discussed with neurology today Dr. Robbins no evidence of acute CVA at this point. On 10/25/2020 patient was seen and examined on the medical floor she is alert confused in no distress she is complaining of cough her oxygen saturation is borderline with 2 L of nasal cannula, there is no fever or chills no headache or dizziness no chest pain no shortness of breath no nausea or vomiting no abdominal pain no diarrhea no blood in the stools no burning with urination no frequency or urgency and no hematuria. Liver enzymes are elevated liver ultrasound reveals enlarged common bile duct gastroenterology consultation re quested. On 10/26/2020 patient was seen and examined on the medical floor she is alert and oriented 3 in no apparent distress today she is maintained on oxygen 3 L nasal cannula her pulse ox is 89 at this time will repeat chest x-ray will repeat Covid 19 testing there is no fever or chills no headache or dizziness no chest pain no shortness of breath patient is still having cough no nausea or vo miting no abdominal pain no diarrhea no blood in the stools no burning with urination no frequency or urgency no hematuria On 10/27/2020 patient was seen and examined on the medical floor she is alert and oriented, her condition is worse today she developed worsening shortness of breath was decreased O2 saturation repeat chest x-ray, reveals bilateral infiltrates, her Covid 19 testing on presentation was negative, repeat testing ordered yesterday is still pending, patient will be started on IV Decadron pulmonary consultation was requested yesterday she is also followed by infectious disease On 10/28/2020 patient was seen and examined on the medical floor she is alert and oriented, she developed worsening shortness of breath was decreased O2 saturation repeat chest x-ray, reveals bilateral infiltrates, her Covid 19 testing on presentation was negative, repeat testing ordered yesterday is negative again, patient will be started on IV Decadron pulmonary consultation was requested yesterday she is also followed by infectious disease. she is maintained on antibiotics for possible aspiration pneumonia. On 10/29/2020 patient was seen and examined on the medical floor she is alert and oriented 3 in no apparent distress. She remains on Airvo 40 L, and FiO2 of 74% with a pulse ox of 94%,, she is complaining of cough and shortness of breath otherwise she denies any complaints there is no fever or chills no headache or dizziness no chest pain no nausea or vomiting no abdominal pain no diarrhea no blood in the stools no burning with urination no frequency or urgency and no hematuria pulmonary and infectious disease consultants following On 10/30/2020 patient was seen and examined on the medical floor she is alert and oriented 3 in no apparent distress she is complaining of cough and shortness of breath she is still maintained on high flow oxygen otherwise she denies any complaints there is no fever or chills no headache or dizziness no chest pain no nausea or vomiting no abdominal pain no diarrhea and no urinary symptoms, IV heparin was discontinued patient was started on subcu Lovenox Objective - Vital Signs Vital signs: Vital Signs Temp 97.8 F 10/30/20 13:07 Pulse 69 10/30/20 13:07 Resp 28 H 10/30/20 13:07 BP 161/69 10/30/20 13:07 Pulse Ox 88 L 10/30/20 13:07 Intake & Output 10/29/20 10/30/20 10/30/20 18:59 06:59 18:59 Intake Total 360 360 Balance 360 360 Weight 46 kg Intake: Oral 360 360 Other: Voiding Method Incontinent Incontinent Incontinent # Voids 4 2 # Bowel Movements 4 - Exam In general patient is alert slightly confused in no apparent distress HEENT head normocephalic and atraumatic Neck is supple no JVD no goiter no lymphadenopathy Chest exam reveals a few scattered rhonchi no wheezing Cardiac exam reveals regular heart sounds S1 and S2 no gallops no murmurs Abdomen is soft nontender no organomegaly with normal bowel sounds Extremity exam reveals no edema no cyanosis or clubbing Neurological examination reveals no gross focal deficit - Labs CBC & Chem 7: 10/30/20 06:10 10/30/20 06:10 Labs: Abnormal Lab Results - Last 24 Hours (Table) 10/30/20 10/30/20 Range/Units 06:10 06:10 WBC 10.8 H (3.8-10.6) k/uL RBC 3.01 L (3.80-5.40) m/uL Hgb 9.0 L (11.4-16.0) gm/dL Hct 28.2 L (34.0-46.0) % Plt Count 461 H (150-450) k/uL Neutrophils # 9.7 H (1.3-7.7) k/uL Lymphocytes # 0.6 L (1.0-4.8) k/uL Creatinine 0.5 L (0.6-1.5) mg/dL BUN/Creatinine Ratio 26.00 H (12.00-20.00) Ratio Glucose 128 H (70-110) mg/dL AST 121 H (13-35) U/L ALT 162 H (8-44) U/L Total Protein 5.9 L (6.2-8.2) g/dL Albumin 3.00 L (3.80-4.90) g/dL Albumin/Globulin Ratio 1.03 L (1.60-3.17) g/dL Microbiology - Last 24 Hours (Table) 10/27/20 00:01 Blood Culture - Preliminary Blood No Growth after 72 hours Assessment and Plan Plan: 1. Left upper lobe pneumonia maintained on IV antibiotic infectious disease consultation requested 2. Urinary tract infection 3. Hyponatremia 4. Hyperkalemia 5. Possible worsening mental status changes and slurred speech Neurology consultation was requested. 6. Elevated liver enzymes with abnormal liver ultrasound showing dilated common bile duct gastroenterology consultation requested At this time patient was started on IV Rocephin and oral Zithromax Medication and labs were reviewed and reordered Will follow during this admission for medical management
[2020-10-30] MEDS: ATORVASTATIN 40 MG TAB PO SCH (21:32)
--- NOTE | 2020-10-31 01:22 | PN ---
PROGRESS NOTE DATE OF SERVICE: 10/30/2020 REASON FOR FOLLOWUP: Pneumonia. INTERVAL HISTORY: The patient is currently afebrile. The patient is breathing slightly comfortably, still requiring high-flow oxygen, though overall requirement has decreased. Denies having any chest pain. She did have a cough, not bringing up sputum. No abdominal pain or diarrhea. PHYSICAL EXAMINATION: Blood pressure 156/73 with a pulse of 67, temperature 98. She is 95% on 25% FiO2. General description is an elderly female lying in bed in no distress. RESPIRATORY SYSTEM: Unlabored breathing, decreased intensity of breath sounds. No wheeze. HEART: S1, S2. Regular rate and rhythm. ABDOMEN: Soft, no tenderness. LABS: Hemoglobin 9, white count 10.8, BUN of 13, creatinine 0.5. DIAGNOSTIC IMPRESSION AND PLAN: Patient with pneumonia, possible Gram negative versus atypical. Patient is covered with Zosyn and Levaquin to continue along with respiratory support. Monitor clinical course closely. MMODL / IJN: [id number] /
[2020-10-31] MEDS: methylPREDNISolone SOD SUCCI 125 MG/2 ML VIAL IV SCH ×4 (05:38→23:36)
[2020-10-31 07:37] LABS: Glucose,Whole Blood 143 mg/dL (75-99)
[2020-10-31] MEDS: LEVOTHYROXINE 50 MCG TAB PO SCH (08:11)
[2020-10-31] MEDS: ASCORBIC ACID 500 MG TAB PO SCH (08:12)
[2020-10-31] MEDS: DOCUSATE 100 MG CAP PO SCH ×2 (08:12→19:15)
[2020-10-31] MEDS: CLOPIDOGREL 75 MG TAB PO SCH (08:12)
[2020-10-31] MEDS: ZINC SULFATE 220 MG CAP PO SCH (08:12)
[2020-10-31] MEDS: metFORMIN 500 MG TAB PO SCH ×2 (08:12→19:16)
[2020-10-31] MEDS: BACLOFEN 10 MG TAB PO SCH ×2 (08:13→19:16)
[2020-10-31] MEDS: ASPIRIN 81 MG PO SCH (08:13)
[2020-10-31] MEDS: CHOLECALCIFEROL 400 UNIT TAB PO SCH (08:13)
[2020-10-31] MEDS: GABAPENTIN 300 MG CAP PO SCH ×3 (08:13→19:15)
[2020-10-31] MEDS: buPROPion SR 150 MG TABLET.ER PO SCH ×2 (08:14→19:15)
[2020-10-31] MEDS: guaiFENesin SYRUP 100MG/5ML 200 MG/10 ML CUP PO SCH ×2 (08:14→19:16)
[2020-10-31] MEDS: ENOXAPARIN 40 MG/0.4 ML SYRINGE SQ SCH (08:15)
[2020-10-31] MEDS: polyethylene glycoL 3350 17 GM POWD.PACK PO SCH (08:15)
[2020-10-31] MEDS: PIPERACILLIN-TAZOBACTAM 3.375 GM in SODIUM CHLORIDE 0.9% 100 ML IVPB SCH ×3 (08:15→23:36)
[2020-10-31] MEDS: risperiDONE 0.5 MG TAB PO SCH ×2 (08:16→19:16)
[2020-10-31] MEDS: SYMBICORT 80-4.5 MCG INHALER INHALATION SCH ×2 (08:50→22:39)
[2020-10-31] MEDS: TIOTROPIUM 18 MCG/PUFF INHALER INHALATION SCH (08:50)
[2020-10-31] MEDS: ALPRAZolam 0.25 MG TAB PO PRN (09:10)
[2020-10-31 10:00] LABS: Basophils % (A) 0 %; Eosinophils % (A) 0 %; HCT 28.3 % (34.0-46.0); HGB 8.9 gm/dL (11.4-16.0); Hypochromasia Slight; Lymphocytes # (A) 0.7 k/uL (1.0-4.8); Lymphocytes % (A) 5 %; MCH 29.9 pg (25.0-35.0); MCHC 31.6 g/dL (31.0-37.0); MCV 94.6 fL (80.0-100.0); Mean Platelet Volume 6.9; Monocytes # (A) 0.4 k/uL (0-1.0); Monocytes % (A) 3 %; Neutrophils # (A) 11.1 k/uL (1.3-7.7); Neutrophils % (A) 90 %; Platelet Count 578 k/uL (150-450); RBC 2.99 m/uL (3.80-5.40); RDW 14.9 % (11.5-15.5); WBC 12.3 k/uL (3.8-10.6)
[2020-10-31] MEDS: ALBUTEROL HFA INHALER INHALATION PRN ×2 (13:03→22:39)
[2020-10-31] MEDS: LEVOFLOXACIN 750 MG TAB PO SCH (13:15)
--- NOTE | 2020-10-31 14:41 | P.PN ---
Subjective Progress Note Date: 10/31/20 Principal diagnosis: Acute hypoxic respiratory failure secondary to suspected aspiration pneumonia. CoVID 19 ruled out This is a 74-year-old female patient who follows with Dr. Jacob as her primary care provider. She has a history of hypertension, hypothyroidism, diabetes xena litus, chronic obstructive pulmonary disease, severe paranoia and schizophrenia, chronic and ongoing tobacco dependence. She was brought into the emergency room via EMS back on 10/21/2020 for altered mental status upon wakening. She was unable to provide any significant history. She did have slurred speech and possibly suffered a fall. CAT scan revealed age related atrophic and chronic small vessel ischemic changes without acute intracranial process. Urine positive for enterococcal faecalis. Blood culture revealed no growth. Chest x- ray did reveal left lung infiltrate. She had been initiated on Unasyn. Her oxygen requirements continued to worsen and she is currently on the AirVo high flow oxygen device at 30 L and 80% FiO2 to maintain O2 saturation in the low 90s. We're consulted today 10/27/2020 for the same. Chest x-ray reveals significant diffuse left mid to lower lung edema/infiltrate and worsening diffuse right lung edema/infiltrate. An ultrasound of the chest was requested and there was 0 amount of fluid in the right lung and 5.5 cm pocket in the left. Not enough to consider a thoracentesis. CAT scan of the chest revealed cardiomegaly with small bilateral pleural effusions. Background moderate emphysematous changes and scattered fibrotic changes. There are multifocal areas of organizing consolidation bilaterally consistent with CoVID 19 infection. Again, her initial screen was negative. She is seen on the regular medical floor. She is currently sitting up in bed. She is oriented to self only. She no she is in a facility unclear which one. Not sure of the day or the time. Not sure why she is here. White count 9.0. Hemoglobin 9.5. D-dimer 4.16. Sodium 134. Potassium 3.7. Creatinine 0.57. LDH 221. C-reactive protein 11.8. Pro-calcitonin 0.11. She is switched to Zosyn. Repeat CoVID 19 screen pending. on 10/28/2020 patient is seen in follow-up on Gen. medical surgical floor. She remains on high flow oxygen, per Airvo at 40 L/m, and FiO2 of 75%, with a pulse ox of 94%, she is awake and alert, she is quite hard of hearing, she is answering questions appropriate, she is oriented 3, she denies any worsening dyspnea, lung sounds are still positive for some scattered wheezes, she denies any chest pain, occasional cough. Patient has been afebrile, her CTA chest showed suboptimal study with of central pulmonary embolism, cardiomegaly with small bilateral pleural effusions, on a background of moderate emphysematous and to a lesser degree scattered pulmonary fibrotic changes. There are multifocal areas of organizing consolidation with the possibility of Covid 19 infection progression. However patient tested negative on 4 different occasions for coronavirus PCR. And her most recent test on 10/27/2020 also came back nega tive. She remains on IV Decadron, and Zosyn for possibility of aspiration pneumonia. On 10/29/2020 patient seen in follow-up on medical surgical floor. She remains on Airvo 40 L, and FiO2 of 74% with a pulse ox of 94%, still requiring high flow oxygen, she has a congested cough, but not bringing up any sputum, remains Zosyn for empiric antibiotic coverage, she is on bronchodilators, her mentation has improved, patient is awake and alert, she is answering questions appropriately. She's been afebrile. Denies any chest pain, or hemoptysis, no new chest x-ray, her urine culture came back positive for Enterococcus faecalis, is sensitive to penicillin, blood cultures have shown no growth. ID service is following. The patient is seen today 10/30/2020 in follow-up on the regular medical floor. She is currently resting comfortably in bed. He remains on AirVo high flow oxygen at 35 L and 73% FiO2 to maintain O2 saturations in the high 80s low 90s. Patient is restless at times and pulse her device off. She's currently afebrile. Chest x-ray continues to reveal diffuse pleural parenchymal changes with mild improvement in the left lung base. White count 10.8. Hemoglobin 9.0. Sodium 135. Potassium 4.4. Creatinine 0.5. Remains on bronchodilators, IV Solu-Medrol, Zosyn. The patient is seen today 10/31/2020 in follow-up on the regular medical floor. She is sitting up in bed having lunch. Awake and alert in no acute distress. She remains on AirVo high flow oxygen at 35 L and 80% FiO2. She is currently afebrile. Urine culture was positive for Enterococcus faecalis and the blood cultures revealed no growth. Coronavirus screen was negative 4. White count 12.3. Hemoglobin 8.9. She remains on Zosyn and Levaquin. Remains on bronchodilators and IV Solu-Medrol. Lovenox for DVT prophylaxis. Objective - Vital Signs Vital signs: Vital Signs Temp 97.7 F 10/31/20 11:00 Pulse 70 10/31/20 11:00 Resp 22 10/31/20 11:00 BP 146/68 10/31/20 11:00 Pulse Ox 90 L 10/31/20 11:00 Intake & Output 10/30/20 10/31/20 10/31/20 18:59 06:59 18:59 Intake Total 360 1630 Balance 360 1630 Weight 46 kg Intake: Intake, IV Titration 680 Amount Piperacillin-Tazobactam 3 200 .375 gm In Sodium Chloride 0.9% 100 ml @ 25 mls/hr IVPB Q8HR [facility] Rx# :[id number] Sodium Chloride 0.9% 1, 480 000 ml @ 80 mls/hr IV . [id number] [facility] Rx#:[id number] Oral 360 950 Other: Voiding Method Incontinent Incontinent # Voids 2 1 - Exam GENERAL EXAM: Alert, restless, on AirVo high flow oxygen at 85% FiO2, comfortable in no apparent distress. HEAD: Normocephalic. EYES: Normal reaction of pupils, equal size. NOSE: Clear with pink turbinates. THROAT: No erythema or exudates. NECK: No masses, no JVD. CHEST: No chest wall deformity. LUNGS: Equal air entry with bilateral scattered rhonchi, crackles in the posterior bases CVS: S1 and S2 normal with no audible murmur, regular rhythm. ABDOMEN: No hepatosplenomegaly, normal bowel sounds, no guarding or rigidity. SPINE: No scoliosis or deformity SKIN: No rashes CENTRAL NERVOUS SYSTEM: No focal deficits, tone is normal in all 4 extremities. EXTREMITIES: There is no peripheral edema. No clubbing, no cyanosis. Peripheral pulses are intact. - Labs CBC & Chem 7: 10/31/20 09:35 10/30/20 06:10 Labs: Abnormal Lab Results - Last 24 Hours (Table) 10/31/20 10/31/20 Range/Units 07:34 09:35 WBC 12.3 H (3.8-10.6) k/uL RBC 2.99 L (3.80-5.40) m/uL Hgb 8.9 L (11.4-16.0) gm/dL Hct 28.3 L (34.0-46.0) % Plt Count 578 H (150-450) k/uL Neutrophils # 11.1 H (1.3-7.7) k/uL Lymphocytes # 0.7 L (1.0-4.8) k/uL POC Glucose (mg/dL) 143 H (75-99) mg/dL Microbiology - Last 24 Hours (Table) 10/27/20 00:01 Blood Culture - Preliminary Blood No Growth after 96 hours Assessment and Plan Assessment: 1 Acute hypoxic respiratory failure secondary to suspected aspiration pneumonia, CoVID 19 ruled out 4 2 Altered mental status suspect secondary to above 3 Acute exacerbation of chronic obstructive pulmonary disease 4 Chronic and ongoing tobacco dependence 5 Severe paranoia and bipolar disorder 6 history of congestive heart failure 7 History of valvular heart disease 8 Hypothyroidism 9 Diabetes mellitus 10 Hypertension Plan: The patient was seen and evaluated by Dr. Robbins Continue Symbicort and DuoNeb inhalations Continue Zosyn and Levaquin Continue IV Solu-Medrol Titrate the FiO2 as tolerated We will continue to follow and make further recommendations based on her clinical status I, the cosigning physician, performed a history & physical examination of the patient. Lungs sounds with bilateral rhonchi, crackles in the posterior bases diminished. Maintaining good O2 saturations in the 90s on 85% FiO2 via the AirVo. I discussed the assessment and plan of care with my nurse practitioner, Sona Parker. I attest to the above note as dictated by her.
[2020-10-31 15:50] LABS: African American GFR (CKD) 102.6 (60.0-200.0); Albumin/Globulin Ratio 1.07 (1.60-3.17); BUN/Creat Ratio 28.33 Ratio (12.00-20.00); Calcium 9.1 mg/dL (8.7-10.3); Globulin 2.8 g/dL (1.6-3.3); Non-African American GFR(CKD) 88.5 (60.0-200.0); Potassium 4.3 mmol/L (3.5-5.5); Total Bilirubin 0.3 mg/dL (0.2-1.2); Total Protein 5.8 g/dL (6.2-8.2)
--- NOTE | 2020-10-31 16:20 | P.PN ---
Subjective Progress Note Date: 10/31/20 HISTORY OF PRESENT ILLNESS This is a 75-year-old female admitted to the hospital and treated for possible aspiration pneumonia, gram-negative pneumonia. Patient has been covered with Zosyn and Levaquin transitioned to oral. Patient complains of cough that is productive. Nurse relates the patient has had problems with hallucinations. Patient denies having any chest pain. Patient has been a febrile, heart rate 70, blood pressure 146/60, pulse ox 90% on high flow nasal cannula with FiO2 of 80, flow rate 35. Repeat blood work reveals WBC 12.3, hemoglobin 8.9, platelet count 578. Electrolytes and renal function normal. Blood sugar 189. AST 85, ALT 178. PHYSICAL EXAMINATION Gen: This is a thin 75-year-old female. HEENT: Head is atraumatic, normocephalic. Pupils equal, round. Sclerae is anicteric. LUNGS: Decreased breath sounds bilaterally. No intercostal retractions. No accessory muscle usage. HEART: Regular rate and rhythm. No murmur. ABDOMEN: Soft. Bowel sounds are present. No masses. No tenderness. EXTREMITIES: No pedal edema. No calf tenderness. NEUROLOGICAL: Patient is awake, alert. ASSESSMENT Acute aspiration pneumonia COVID-19 ruled out on 4 different specimens Metabolic encephalopathy secondary to pneumonia Acute exacerbation of COPD Tobacco use and dependence Acute urinary tract infection, completed treatment PLAN Continue Levaquin 750 mg oral daily Continue Zosyn 3.375 grams every 8 hours Continue oxygen therapy and attempt to wean The above dictated assessment and findings were discussed with Dr. Jarrell. The impression and plan of care have been directed as dictated. Jessica Currie nurse practitioner acting as scribe for Dr. Jarrell. Objective - Vital Signs Vital signs: Vital Signs Temp 98.1 F 10/31/20 05:00 Pulse 64 10/31/20 05:00 Resp 16 10/31/20 05:00 BP 169/78 10/31/20 05:00 Pulse Ox 97 10/31/20 05:00 Intake & Output 10/30/20 10/31/20 10/31/20 18:59 06:59 18:59 Intake Total 360 1630 Balance 360 1630 Intake: Intake, IV Titration 680 Amount Piperacillin-Tazobactam 3 200 .375 gm In Sodium Chloride 0.9% 100 ml @ 25 mls/hr IVPB Q8HR [facility] Rx# :[id number] Sodium Chloride 0.9% 1, 480 000 ml @ 80 mls/hr IV . [id number] [facility] Rx#:[id number] Oral 360 950 Other: Voiding Method Incontinent # Voids 2 1 - Labs CBC & Chem 7: 10/31/20 09:35 10/31/20 09:35 Labs: Abnormal Lab Results - Last 24 Hours (Table) 10/30/20 10/31/20 10/31/20 Range/Units 06:10 07:34 09:35 WBC 12.3 H (3.8-10.6) k/uL RBC 2.99 L (3.80-5.40) m/uL Hgb 8.9 L (11.4-16.0) gm/dL Hct 28.3 L (34.0-46.0) % Plt Count 578 H (150-450) k/uL Neutrophils # 11.1 H (1.3-7.7) k/uL Lymphocytes # 0.7 L (1.0-4.8) k/uL Creatinine 0.5 L (0.6-1.5) mg/dL BUN/Creatinine Ratio 26.00 H (12.00-20.00) Ratio Glucose 128 H (70-110) mg/dL POC Glucose (mg/dL) 143 H (75-99) mg/dL AST 121 H (13-35) U/L ALT 162 H (8-44) U/L Total Protein 5.9 L (6.2-8.2) g/dL Albumin 3.00 L (3.80-4.90) g/dL Albumin/Globulin Ratio 1.03 L (1.60-3.17) g/dL Microbiology - Last 24 Hours (Table) 10/27/20 00:01 Blood Culture - Preliminary Blood No Growth after 96 hours
[2020-10-31] MEDS: SODIUM CHLORIDE 0.9% 1,000 ML IV SCH (16:36)
--- NOTE | 2020-10-31 18:48 | P.PN ---
Subjective Progress Note Date: 10/31/20 Sofía Leslie is a 74 year-old female patient of Dr Jacob who presented to [facility] ER with a chief complaint of slurred speech, patient has a known history of bipolar disorder, schizophrenia, she is a poor historian her baseline mental status and speech pattern is not clear however caregivers. There is a change from her baseline and she was brought into emergency room to be evaluated for possible stroke. Patient was evaluated in the emergency room her temperature was 97.9 pulse 75 respiration 18 blood pressure 111/55 pulse ox 95% on room air, subsequently dropped to 83% on room air. Her laboratory data was significant for a white blood count of 26.8 sodium of 125 potassium of 6.0 and evidence of elevated AST at 101 and evidence of urinary tract infection. Patient underwent a computed tomography scan of the brain without contrast in the emergency room that revealed age-related atrophic and chronic small vessel disease changes without acute intracranial bleeding she also underwent computed tomography scan of the cervical spine due to recent fall there was no evidence for acute fracture or subluxation of the cervical spine CT angiogram of the brain did not reveal any significant abnormality in the [place] [facility] [place] CT angiogram of the neck revealed 80% stenosis on the left internal carotid artery chest x-ray was positive for left upper lobe infiltrate correlate for pneumonia. EKG revealed accelerated junctional rhythm with nonspecific T-wave abnormality. Patient was started on IV antibiotic for UTI and pneumonia. She was started on IV fluid for severe hyponatremia she was admitted to medical floor infectious disease consultation and cardiology consultation were requested. On 10/23/2020 patient was seen and examined on the medical floor she is alert, slightly confused in no apparent distress there is no fever or chills no headache or dizziness no chest pain no shortness of breath no cough no nausea or vomiting no abdominal pain no diarrhea and no urinary symptoms. On 10/24/2020 patient was seen and examined on the medical floor she is alert confused in no apparent distress there is no fever or chills no headache or dizziness no chest pain no shortness of breath no cough no nausea or vomiting no abdominal pain no diarrhea and no urinary symptoms, patient is being treated for pneumonia, urinary tract infection, mental status changes she seems to be related to metabolic encephalopathy related to her infections, case was discussed with neurology today Dr. Robbins no evidence of acute CVA at this point. On 10/25/2020 patient was seen and examined on the medical floor she is alert confused in no distress she is complaining of cough her oxygen saturation is borderline with 2 L of nasal cannula, there is no fever or chills no headache or dizziness no chest pain no shortness of breath no nausea or vomiting no abdominal pain no diarrhea no blood in the stools no burning with urination no frequency or urgency and no hematuria. Liver enzymes are elevated liver ultrasound reveals enlarged common bile duct gastroenterology consultation re quested. On 10/26/2020 patient was seen and examined on the medical floor she is alert and oriented 3 in no apparent distress today she is maintained on oxygen 3 L nasal cannula her pulse ox is 89 at this time will repeat chest x-ray will repeat Covid 19 testing there is no fever or chills no headache or dizziness no chest pain no shortness of breath patient is still having cough no nausea or vo miting no abdominal pain no diarrhea no blood in the stools no burning with urination no frequency or urgency no hematuria On 10/27/2020 patient was seen and examined on the medical floor she is alert and oriented, her condition is worse today she developed worsening shortness of breath was decreased O2 saturation repeat chest x-ray, reveals bilateral infiltrates, her Covid 19 testing on presentation was negative, repeat testing ordered yesterday is still pending, patient will be started on IV Decadron pulmonary consultation was requested yesterday she is also followed by infectious disease On 10/28/2020 patient was seen and examined on the medical floor she is alert and oriented, she developed worsening shortness of breath was decreased O2 saturation repeat chest x-ray, reveals bilateral infiltrates, her Covid 19 testing on presentation was negative, repeat testing ordered yesterday is negative again, patient will be started on IV Decadron pulmonary consultation was requested yesterday she is also followed by infectious disease. she is maintained on antibiotics for possible aspiration pneumonia. On 10/29/2020 patient was seen and examined on the medical floor she is alert and oriented 3 in no apparent distress. She remains on Airvo 40 L, and FiO2 of 74% with a pulse ox of 94%,, she is complaining of cough and shortness of breath otherwise she denies any complaints there is no fever or chills no headache or dizziness no chest pain no nausea or vomiting no abdominal pain no diarrhea no blood in the stools no burning with urination no frequency or urgency and no hematuria pulmonary and infectious disease consultants following On 10/30/2020 patient was seen and examined on the medical floor she is alert and oriented 3 in no apparent distress she is complaining of cough and shortness of breath she is still maintained on high flow oxygen otherwise she denies any complaints there is no fever or chills no headache or dizziness no chest pain no nausea or vomiting no abdominal pain no diarrhea and no urinary symptoms, IV heparin was discontinued patient was started on subcu Lovenox On 10/31/2020 patient was seen and examined on the medical floor she is alert and oriented in no distress she is still complaining of cough and shortness of breath she is maintained on high flow oxygen otherwise she denies any complaints there is no fever or chills no headache or dizziness no chest pain no known nausea or vomiting no abdominal pain no diarrhea no blood in the stools no burning with urination no frequency or urgency and no hematuria patient is followed by pulmonary critical care Objective - Vital Signs Vital signs: Vital Signs Temp 98 F 10/31/20 17:00 Pulse 60 10/31/20 17:00 Resp 22 10/31/20 17:00 BP 172/79 10/31/20 17:00 Pulse Ox 99 10/31/20 17:00 Intake & Output 10/30/20 10/31/20 10/31/20 18:59 06:59 18:59 Intake Total 360 1630 Balance 360 1630 Weight 46 kg Intake: Intake, IV Titration 680 Amount Piperacillin-Tazobactam 3 200 .375 gm In Sodium Chloride 0.9% 100 ml @ 25 mls/hr IVPB Q8HR [facility] Rx# :[id number] Sodium Chloride 0.9% 1, 480 000 ml @ 80 mls/hr IV . [id number] [facility] Rx#:[id number] Oral 360 950 Other: Voiding Method Incontinent Incontinent # Voids 2 1 - Exam In general patient is alert slightly confused in no apparent distress HEENT head normocephalic and atraumatic Neck is supple no JVD no goiter no lymphadenopathy Chest exam reveals a few scattered rhonchi no wheezing Cardiac exam reveals regular heart sounds S1 and S2 no gallops no murmurs Abdomen is soft nontender no organomegaly with normal bowel sounds Extremity exam reveals no edema no cyanosis or clubbing Neurological examination reveals no gross focal deficit - Labs CBC & Chem 7: 10/31/20 09:35 12/03/20 09:35 Labs: Abnormal Lab Results - Last 24 Hours (Table) 10/31/20 10/31/20 10/31/20 Range/Units 07:34 09:35 09:35 WBC 12.3 H (3.8-10.6) k/uL RBC 2.99 L (3.80-5.40) m/uL Hgb 8.9 L (11.4-16.0) gm/dL Hct 28.3 L (34.0-46.0) % Plt Count 578 H (150-450) k/uL Neutrophils # 11.1 H (1.3-7.7) k/uL Lymphocytes # 0.7 L (1.0-4.8) k/uL BUN/Creatinine Ratio 28.33 H (12.00-20.00) Ratio Glucose 189 H (70-110) mg/dL POC Glucose (mg/dL) 143 H (75-99) mg/dL AST 85 H (13-35) U/L ALT 178 H (8-44) U/L Total Protein 5.8 L (6.2-8.2) g/dL Albumin 3.00 L (3.80-4.90) g/dL Albumin/Globulin Ratio 1.07 L (1.60-3.17) g/dL Microbiology - Last 24 Hours (Table) 10/27/20 00:01 Blood Culture - Preliminary Blood No Growth after 96 hours Assessment and Plan Plan: 1. Left upper lobe pneumonia maintained on IV antibiotic infectious disease consultation requested 2. Urinary tract infection 3. Hyponatremia 4. Hyperkalemia 5. Possible worsening mental status changes and slurred speech Neurology consultation was requested. 6. Elevated liver enzymes with abnormal liver ultrasound showing dilated common bile duct gastroenterology consultation requested At this time patient was started on IV Rocephin and oral Zithromax Medication and labs were reviewed and reordered Will follow during this admission for medical management
[2020-10-31] MEDS: ATORVASTATIN 40 MG TAB PO SCH (19:16)
[2020-11-01] MEDS: ALPRAZolam 0.25 MG TAB PO PRN ×3 (01:27→20:12)
[2020-11-01] MEDS: SODIUM CHLORIDE 0.9% 1,000 ML IV SCH ×2 (04:00→08:47)
[2020-11-01] MEDS: methylPREDNISolone SOD SUCCI 125 MG/2 ML VIAL IV SCH ×3 (05:30→17:54)
[2020-11-01] MEDS: LEVOFLOXACIN 750 MG TAB PO SCH (08:45)
[2020-11-01] MEDS: buPROPion SR 150 MG TABLET.ER PO SCH ×2 (08:45→20:12)
[2020-11-01] MEDS: metFORMIN 500 MG TAB PO SCH ×2 (08:45→20:12)
[2020-11-01] MEDS: ASPIRIN 81 MG PO SCH (08:45)
[2020-11-01] MEDS: ZINC SULFATE 220 MG CAP PO SCH (08:45)
[2020-11-01] MEDS: DOCUSATE 100 MG CAP PO SCH ×2 (08:46→20:12)
[2020-11-01] MEDS: risperiDONE 0.5 MG TAB PO SCH ×2 (08:46→20:13)
[2020-11-01] MEDS: GABAPENTIN 300 MG CAP PO SCH ×3 (08:46→20:12)
[2020-11-01] MEDS: LEVOTHYROXINE 50 MCG TAB PO SCH (08:46)
[2020-11-01] MEDS: PIPERACILLIN-TAZOBACTAM 3.375 GM in SODIUM CHLORIDE 0.9% 100 ML IVPB SCH ×2 (08:46→16:00)
[2020-11-01] MEDS: BACLOFEN 10 MG TAB PO SCH ×2 (08:46→20:12)
[2020-11-01] MEDS: guaiFENesin SYRUP 100MG/5ML 200 MG/10 ML CUP PO SCH ×2 (08:46→20:12)
[2020-11-01] MEDS: ASCORBIC ACID 500 MG TAB PO SCH (08:46)
[2020-11-01] MEDS: CLOPIDOGREL 75 MG TAB PO SCH (08:46)
[2020-11-01] MEDS: CHOLECALCIFEROL 400 UNIT TAB PO SCH (08:46)
[2020-11-01] MEDS: polyethylene glycoL 3350 17 GM POWD.PACK PO SCH (08:47)
[2020-11-01] MEDS: ENOXAPARIN 40 MG/0.4 ML SYRINGE SQ SCH (08:47)
[2020-11-01 08:56] LABS: Basophils % (A) 0 %; Eosinophils % (A) 0 %; HCT 28.6 % (34.0-46.0); HGB 9.2 gm/dL (11.4-16.0); Hypochromasia Slight; Lymphocytes # (A) 0.9 k/uL (1.0-4.8); Lymphocytes % (A) 7 %; MCH 30.3 pg (25.0-35.0); MCHC 32.1 g/dL (31.0-37.0); MCV 94.4 fL (80.0-100.0); Mean Platelet Volume 6.9; Monocytes # (A) 0.7 k/uL (0-1.0); Monocytes % (A) 5 %; Neutrophils # (A) 10.8 k/uL (1.3-7.7); Neutrophils % (A) 86 %; Platelet Count 622 k/uL (150-450); RBC 3.03 m/uL (3.80-5.40); WBC 12.6 k/uL (3.8-10.6)
[2020-11-01] MEDS: ALBUTEROL HFA INHALER INHALATION PRN ×4 (09:32→20:06)
[2020-11-01] MEDS: SYMBICORT 80-4.5 MCG INHALER INHALATION SCH ×2 (09:32→20:06)
[2020-11-01] MEDS: TIOTROPIUM 18 MCG/PUFF INHALER INHALATION SCH (12:32)
--- NOTE | 2020-11-01 14:16 | P.PN ---
Subjective Progress Note Date: 11/01/20 Principal diagnosis: Acute hypoxic respiratory failure secondary to suspected aspiration pneumonia. CoVID 19 ruled out This is a 74-year-old female patient who follows with Dr. Jacob as her primary care provider. She has a history of hypertension, hypothyroidism, diabetes xena litus, chronic obstructive pulmonary disease, severe paranoia and schizophrenia, chronic and ongoing tobacco dependence. She was brought into the emergency room via EMS back on 10/21/2020 for altered mental status upon wakening. She was unable to provide any significant history. She did have slurred speech and possibly suffered a fall. CAT scan revealed age related atrophic and chronic small vessel ischemic changes without acute intracranial process. Urine positive for enterococcal faecalis. Blood culture revealed no growth. Chest x- ray did reveal left lung infiltrate. She had been initiated on Unasyn. Her oxygen requirements continued to worsen and she is currently on the AirVo high flow oxygen device at 30 L and 80% FiO2 to maintain O2 saturation in the low 90s. We're consulted today 10/27/2020 for the same. Chest x-ray reveals significant diffuse left mid to lower lung edema/infiltrate and worsening diffuse right lung edema/infiltrate. An ultrasound of the chest was requested and there was 0 amount of fluid in the right lung and 5.5 cm pocket in the left. Not enough to consider a thoracentesis. CAT scan of the chest revealed cardiomegaly with small bilateral pleural effusions. Background moderate emphysematous changes and scattered fibrotic changes. There are multifocal areas of organizing consolidation bilaterally consistent with CoVID 19 infection. Again, her initial screen was negative. She is seen on the regular medical floor. She is currently sitting up in bed. She is oriented to self only. She no she is in a facility unclear which one. Not sure of the day or the time. Not sure why she is here. White count 9.0. Hemoglobin 9.5. D-dimer 4.16. Sodium 134. Potassium 3.7. Creatinine 0.57. LDH 221. C-reactive protein 11.8. Pro-calcitonin 0.11. She is switched to Zosyn. Repeat CoVID 19 screen pending. on 10/28/2020 patient is seen in follow-up on Gen. medical surgical floor. She remains on high flow oxygen, per Airvo at 40 L/m, and FiO2 of 75%, with a pulse ox of 94%, she is awake and alert, she is quite hard of hearing, she is answering questions appropriate, she is oriented 3, she denies any worsening dyspnea, lung sounds are still positive for some scattered wheezes, she denies any chest pain, occasional cough. Patient has been afebrile, her CTA chest showed suboptimal study with of central pulmonary embolism, cardiomegaly with small bilateral pleural effusions, on a background of moderate emphysematous and to a lesser degree scattered pulmonary fibrotic changes. There are multifocal areas of organizing consolidation with the possibility of Covid 19 infection progression. However patient tested negative on 4 different occasions for coronavirus PCR. And her most recent test on 10/27/2020 also came back nega tive. She remains on IV Decadron, and Zosyn for possibility of aspiration pneumonia. On 10/29/2020 patient seen in follow-up on medical surgical floor. She remains on Airvo 40 L, and FiO2 of 74% with a pulse ox of 94%, still requiring high flow oxygen, she has a congested cough, but not bringing up any sputum, remains Zosyn for empiric antibiotic coverage, she is on bronchodilators, her mentation has improved, patient is awake and alert, she is answering questions appropriately. She's been afebrile. Denies any chest pain, or hemoptysis, no new chest x-ray, her urine culture came back positive for Enterococcus faecalis, is sensitive to penicillin, blood cultures have shown no growth. ID service is following. The patient is seen today 10/30/2020 in follow-up on the regular medical floor. She is currently resting comfortably in bed. He remains on AirVo high flow oxygen at 35 L and 73% FiO2 to maintain O2 saturations in the high 80s low 90s. Patient is restless at times and pulse her device off. She's currently afebrile. Chest x-ray continues to reveal diffuse pleural parenchymal changes with mild improvement in the left lung base. White count 10.8. Hemoglobin 9.0. Sodium 135. Potassium 4.4. Creatinine 0.5. Remains on bronchodilators, IV Solu-Medrol, Zosyn. The patient is seen today 10/31/2020 in follow-up on the regular medical floor. She is sitting up in bed having lunch. Awake and alert in no acute distress. She remains on AirVo high flow oxygen at 35 L and 80% FiO2. She is currently afebrile. Urine culture was positive for Enterococcus faecalis and the blood cultures revealed no growth. Coronavirus screen was negative 4. White count 12.3. Hemoglobin 8.9. She remains on Zosyn and Levaquin. Remains on bronchodilators and IV Solu-Medrol. Lovenox for DVT prophylaxis. The patient is seen today 11/01/2020 in follow-up on the regular medical floor. She is currently sitting up in bed. Having lunch. Maintaining O2 saturations up to 100% on 35 L and 85% on the AirVo high flow oxygen device. She's afebrile. White count 12.6. Hemoglobin 9.2. She remains on Levaquin and Zosyn. Continued on bronchodilators, IV Solu-Medrol, Lovenox. Objective - Vital Signs Vital signs: Vital Signs Temp 97.5 F L 11/01/20 10:11 Pulse 73 11/01/20 10:11 Resp 22 11/01/20 10:11 BP 179/75 11/01/20 04:41 Pulse Ox 100 11/01/20 10:11 Intake & Output 10/31/20 11/01/20 11/01/20 18:59 06:59 18:59 Intake Total 960 Balance 960 Weight 46 kg Intake: IV 960 Sodium Chloride 0.9% 1, 960 000 ml @ 80 mls/hr IV . [id number] [facility] Rx#:[id number] Other: Voiding Method Incontinent Incontinent # Bowel Movements 3 - Exam GENERAL EXAM: Alert, restless, on AirVo high flow oxygen at 85% FiO2, comfortable in no apparent distress. HEAD: Normocephalic. EYES: Normal reaction of pupils, equal size. NOSE: Clear with pink turbinates. THROAT: No erythema or exudates. NECK: No masses, no JVD. CHEST: No chest wall deformity. LUNGS: Equal air entry with bilateral scattered rhonchi, diminished CVS: S1 and S2 normal with no audible murmur, regular rhythm. ABDOMEN: No hepatosplenomegaly, normal bowel sounds, no guarding or rigidity. SPINE: No scoliosis or deformity SKIN: No rashes CENTRAL NERVOUS SYSTEM: No focal deficits, tone is normal in all 4 extremities. EXTREMITIES: There is no peripheral edema. No clubbing, no cyanosis. Peripheral pulses are intact. - Labs CBC & Chem 7: 11/01/20 07:38 12 09:35 Labs: Abnormal Lab Results - Last 24 Hours (Table) 10/31/20 11/01/20 Range/Units 09:35 07:38 WBC 12.6 H (3.8-10.6) k/uL RBC 3.03 L (3.80-5.40) m/uL Hgb 9.2 L (11.4-16.0) gm/dL Hct 28.6 L (34.0-46.0) % Plt Count 622 H (150-450) k/uL Neutrophils # 10.8 H (1.3-7.7) k/uL Lymphocytes # 0.9 L (1.0-4.8) k/uL BUN/Creatinine Ratio 28.33 H (12.00-20.00) Ratio Glucose 189 H (70-110) mg/dL AST 85 H (13-35) U/L ALT 178 H (8-44) U/L Total Protein 5.8 L (6.2-8.2) g/dL Albumin 3.00 L (3.80-4.90) g/dL Albumin/Globulin Ratio 1.07 L (1.60-3.17) g/dL Microbiology - Last 24 Hours (Table) 10/27/20 00:01 Blood Culture - Preliminary Blood No Growth after 120 hours Assessment and Plan Assessment: 1 Acute hypoxic respiratory failure secondary to suspected aspiration pneumonia, CoVID 19 ruled out 4 2 Altered mental status suspect secondary to above 3 Acute exacerbation of chronic obstructive pulmonary disease 4 Chronic and ongoing tobacco dependence 5 Severe paranoia and bipolar disorder 6 history of congestive heart failure 7 History of valvular heart disease 8 Hypothyroidism 9 Diabetes mellitus 10 Hypertension Plan: The patient was seen and evaluated by Dr. Robbins We will give her a trial on 15 L high flow versus the AirVo Titrate oxygen to keep O2 saturations greater than 88% We will continue to follow and make further recommendations based on her clinical status I, the cosigning physician, performed a history & physical examination of the patient. Lungs sounds with bilateral rhonchi, diminished. Maintaining good O2 saturations in the 90s on 85% FiO2 via the AirVo. I discussed the assessment and plan of care with my nurse practitioner, Sona Parker. I attest to the above note as dictated by her.
--- NOTE | 2020-11-01 15:35 | P.PN ---
Subjective Progress Note Date: 11/01/20 Sofía Leslie is a 74 year-old female patient of Dr Jacob who presented to [facility] ER with a chief complaint of slurred speech, patient has a known history of bipolar disorder, schizophrenia, she is a poor historian her baseline mental status and speech pattern is not clear however caregivers. There is a change from her baseline and she was brought into emergency room to be evaluated for possible stroke. Patient was evaluated in the emergency room her temperature was 97.9 pulse 75 respiration 18 blood pressure 111/55 pulse ox 95% on room air, subsequently dropped to 83% on room air. Her laboratory data was significant for a white blood count of 26.8 sodium of 125 potassium of 6.0 and evidence of elevated AST at 101 and evidence of urinary tract infection. Patient underwent a computed tomography scan of the brain without contrast in the emergency room that revealed age-related atrophic and chronic small vessel disease changes without acute intracranial bleeding she also underwent computed tomography scan of the cervical spine due to recent fall there was no evidence for acute fracture or subluxation of the cervical spine CT angiogram of the brain did not reveal any significant abnormality in the lower [place] of [place] CT angiogram of the neck revealed 80% stenosis on the left internal carotid artery chest x-ray was positive for left upper lobe infiltrate correlate for pneumonia. EKG revealed accelerated junctional rhythm with nonspecific T-wave abnormality. Patient was started on IV antibiotic for UTI and pneumonia. She was started on IV fluid for severe hyponatremia she was admitted to medical floor infectious disease consultation and cardiology consultation were requested. On 10/23/2020 patient was seen and examined on the medical floor she is alert, slightly confused in no apparent distress there is no fever or chills no headache or dizziness no chest pain no shortness of breath no cough no nausea or vomiting no abdominal pain no diarrhea and no urinary symptoms. On 10/24/2020 patient was seen and examined on the medical floor she is alert confused in no apparent distress there is no fever or chills no headache or dizziness no chest pain no shortness of breath no cough no nausea or vomiting no abdominal pain no diarrhea and no urinary symptoms, patient is being treated for pneumonia, urinary tract infection, mental status changes she seems to be related to metabolic encephalopathy related to her infections, case was discussed with neurology today Dr. Robbins no evidence of acute CVA at this point. On 10/25/2020 patient was seen and examined on the medical floor she is alert confused in no distress she is complaining of cough her oxygen saturation is borderline with 2 L of nasal cannula, there is no fever or chills no headache or dizziness no chest pain no shortness of breath no nausea or vomiting no abdominal pain no diarrhea no blood in the stools no burning with urination no frequency or urgency and no hematuria. Liver enzymes are elevated liver ultrasound reveals enlarged common bile duct gastroenterology consultation re quested. On 10/26/2020 patient was seen and examined on the medical floor she is alert and oriented 3 in no apparent distress today she is maintained on oxygen 3 L nasal cannula her pulse ox is 89 at this time will repeat chest x-ray will repeat Covid 19 testing there is no fever or chills no headache or dizziness no chest pain no shortness of breath patient is still having cough no nausea or vo miting no abdominal pain no diarrhea no blood in the stools no burning with urination no frequency or urgency no hematuria On 10/27/2020 patient was seen and examined on the medical floor she is alert and oriented, her condition is worse today she developed worsening shortness of breath was decreased O2 saturation repeat chest x-ray, reveals bilateral infiltrates, her Covid 19 testing on presentation was negative, repeat testing ordered yesterday is still pending, patient will be started on IV Decadron pulmonary consultation was requested yesterday she is also followed by infectious disease On 10/28/2020 patient was seen and examined on the medical floor she is alert and oriented, she developed worsening shortness of breath was decreased O2 saturation repeat chest x-ray, reveals bilateral infiltrates, her Covid 19 testing on presentation was negative, repeat testing ordered yesterday is negative again, patient will be started on IV Decadron pulmonary consultation was requested yesterday she is also followed by infectious disease. she is maintained on antibiotics for possible aspiration pneumonia. On 10/29/2020 patient was seen and examined on the medical floor she is alert and oriented 3 in no apparent distress. She remains on Airvo 40 L, and FiO2 of 74% with a pulse ox of 94%,, she is complaining of cough and shortness of breath otherwise she denies any complaints there is no fever or chills no headache or dizziness no chest pain no nausea or vomiting no abdominal pain no diarrhea no blood in the stools no burning with urination no frequency or urgency and no hematuria pulmonary and infectious disease consultants following On 10/30/2020 patient was seen and examined on the medical floor she is alert and oriented 3 in no apparent distress she is complaining of cough and shortness of breath she is still maintained on high flow oxygen otherwise she denies any complaints there is no fever or chills no headache or dizziness no chest pain no nausea or vomiting no abdominal pain no diarrhea and no urinary symptoms, IV heparin was discontinued patient was started on subcu Lovenox On 10/31/2020 patient was seen and examined on the medical floor she is alert and oriented in no distress she is still complaining of cough and shortness of breath she is maintained on high flow oxygen otherwise she denies any complaints there is no fever or chills no headache or dizziness no chest pain no known nausea or vomiting no abdominal pain no diarrhea no blood in the stools no burning with urination no frequency or urgency and no hematuria patient is followed by pulmonary critical care On 11/01/2020 patient was seen and examined on the medical floor she is alert an d oriented 3 in no distress she is complaining of cough and shortness of breath otherwise no complaints there is no fever or chills no headache or dizziness no chest pain no nausea or vomiting no abdominal pain no diarrhea no blood in the stools no burning with urination no frequency or urgency no hematuria Objective - Vital Signs Vital signs: Vital Signs Temp 97.9 F 11/01/20 04:41 Pulse 55 L 11/01/20 04:41 Resp 20 11/01/20 04:41 BP 179/75 11/01/20 04:41 Pulse Ox 100 11/01/20 04:41 Intake & Output 10/31/20 11/01/20 11/01/20 18:59 06:59 18:59 Intake Total 960 Balance 960 Weight 46 kg Intake: IV 960 Sodium Chloride 0.9% 1, 960 000 ml @ 80 mls/hr IV . [id number] [facility] Rx#:[id number] Other: Voiding Method Incontinent Incontinent # Bowel Movements 3 - Exam In general patient is alert slightly confused in no apparent distress HEENT head normocephalic and atraumatic Neck is supple no JVD no goiter no lymphadenopathy Chest exam reveals a few scattered rhonchi no wheezing Cardiac exam reveals regular heart sounds S1 and S2 no gallops no murmurs Abdomen is soft nontender no organomegaly with normal bowel sounds Extremity exam reveals no edema no cyanosis or clubbing Neurological examination reveals no gross focal deficit - Labs CBC & Chem 7: 11/01/20 07:38 10/31/20 09:35 Labs: Abnormal Lab Results - Last 24 Hours (Table) 10/31/20 11/01/20 Range/Units 09:35 07:38 WBC 12.6 H (3.8-10.6) k/uL RBC 3.03 L (3.80-5.40) m/uL Hgb 9.2 L (11.4-16.0) gm/dL Hct 28.6 L (34.0-46.0) % Plt Count 622 H (150-450) k/uL Neutrophils # 10.8 H (1.3-7.7) k/uL Lymphocytes # 0.9 L (1.0-4.8) k/uL BUN/Creatinine Ratio 28.33 H (12.00-20.00) Ratio Glucose 189 H (70-110) mg/dL AST 85 H (13-35) U/L ALT 178 H (8-44) U/L Total Protein 5.8 L (6.2-8.2) g/dL Albumin 3.00 L (3.80-4.90) g/dL Albumin/Globulin Ratio 1.07 L (1.60-3.17) g/dL Microbiology - Last 24 Hours (Table) 10/27/20 00:01 Blood Culture - Preliminary Blood No Growth after 120 hours Assessment and Plan Plan: 1. Left upper lobe pneumonia maintained on IV antibiotic infectious disease consultation requested 2. Urinary tract infection 3. Hyponatremia 4. Hyperkalemia 5. Possible worsening mental status changes and slurred speech Neurology consultation was requested. 6. Elevated liver enzymes with abnormal liver ultrasound showing dilated common bile duct gastroenterology consultation requested At this time patient was started on IV Rocephin and oral Zithromax Medication and labs were reviewed and reordered Will follow during this admission for medical management
--- NOTE | 2020-11-01 16:23 | P.PN ---
Subjective Progress Note Date: 11/01/20 HISTORY OF PRESENT ILLNESS This is a 75-year-old female admitted to the hospital and treated for possible aspiration pneumonia, gram-negative pneumonia. Patient has been covered with Zosyn and Levaquin transitioned to oral. Patient complains of cough that is productive. Nurse relates the patient has had problems with hallucinations. Patient denies having any chest pain. Patient has been a febrile, heart rate 70, blood pressure 146/60, pulse ox 90% on high flow nasal cannula with FiO2 of 80, flow rate 35. Repeat blood work reveals WBC 12.3, hemoglobin 8.9, platelet count 578. Electrolytes and renal function normal. Blood sugar 189. AST 85, ALT 178. 11/01: Patient states that she is feeling better today. She denies any chest pain, no shortness of breath, no cough. She denies any abdominal symptoms. Large amount of oxygen with pulse ox 100% on 15 L high flow. Blood pressure 161/84, heart rate 67, afebrile. Repeat blood work reveals an ABC 12.6, hemoglobin 9.2, platelet count 622. PHYSICAL EXAMINATION Gen: This is a thin 75-year-old female. HEENT: Head is atraumatic, normocephalic. Pupils equal, round. Sclerae is anicteric. LUNGS: Decreased breath sounds bilaterally and clear to auscultation. No intercostal retractions. No accessory muscle usage. HEART: Regular rate and rhythm. No murmur. ABDOMEN: Soft. Bowel sounds are present. No masses. No tenderness. EXTREMITIES: No pedal edema. No calf tenderness. NEUROLOGICAL: Patient is awake, alert. ASSESSMENT Acute aspiration pneumonia COVID-19 ruled out on 4 different specimens Metabolic encephalopathy secondary to pneumonia Acute exacerbation of COPD Tobacco use and dependence Acute urinary tract infection, completed treatment PLAN Continue Levaquin 750 mg oral daily Continue Zosyn 3.375 grams every 8 hours Continue oxygen therapy and attempt to wean The above dictated assessment and findings were discussed with Dr. Jarrell. The impression and plan of care have been directed as dictated. Jessica Currie nurse practitioner acting as scribe for Dr. Jarrell. Objective - Vital Signs Vital signs: Vital Signs Temp 97.5 F L 11/01/20 10:11 Pulse 73 11/01/20 10:11 Resp 22 11/01/20 10:11 BP 179/75 11/01/20 04:41 Pulse Ox 100 11/01/20 10:11 Intake & Output 10/31/20 11/01/20 11/01/20 18:59 06:59 18:59 Intake Total 960 Balance 960 Weight 46 kg Intake: IV 960 Sodium Chloride 0.9% 1, 960 000 ml @ 80 mls/hr IV . [id number] [facility] Rx#:[id number] Other: Voiding Method Incontinent Incontinent # Bowel Movements 3 - Labs CBC & Chem 7: 11/01/20 07:38 10/31/20 09:35 Labs: Abnormal Lab Results - Last 24 Hours (Table) 10/31/20 11/01/20 Range/Units 09:35 07:38 WBC 12.6 H (3.8-10.6) k/uL RBC 3.03 L (3.80-5.40) m/uL Hgb 9.2 L (11.4-16.0) gm/dL Hct 28.6 L (34.0-46.0) % Plt Count 622 H (150-450) k/uL Neutrophils # 10.8 H (1.3-7.7) k/uL Lymphocytes # 0.9 L (1.0-4.8) k/uL BUN/Creatinine Ratio 28.33 H (12.00-20.00) Ratio Glucose 189 H (70-110) mg/dL AST 85 H (13-35) U/L ALT 178 H (8-44) U/L Total Protein 5.8 L (6.2-8.2) g/dL Albumin 3.00 L (3.80-4.90) g/dL Albumin/Globulin Ratio 1.07 L (1.60-3.17) g/dL Microbiology - Last 24 Hours (Table) 10/27/20 00:01 Blood Culture - Preliminary Blood No Growth after 120 hours
[2020-11-01 16:32] LABS: Albumin/Globulin Ratio 1.03 (1.60-3.17); Anion Gap 8.2 mmol/L (4.00-12.00); Calcium 8.8 mg/dL (8.7-10.3); Carbon Dioxide 29.8 mmol/L (21.6-31.8); Globulin 2.9 g/dL (1.6-3.3); Potassium 4.6 mmol/L (3.5-5.5); Total Bilirubin 0.2 mg/dL (0.2-1.2); Total Protein 5.9 g/dL (6.2-8.2)
[2020-11-01] MEDS: ATORVASTATIN 40 MG TAB PO SCH (20:12)
[2020-11-02] MEDS: methylPREDNISolone SOD SUCCI 125 MG/2 ML VIAL IV SCH ×4 (01:17→17:34)
[2020-11-02] MEDS: PIPERACILLIN-TAZOBACTAM 3.375 GM in SODIUM CHLORIDE 0.9% 100 ML IVPB SCH ×3 (01:17→15:42)
[2020-11-02] MEDS: SODIUM CHLORIDE 0.9% 1,000 ML IV SCH ×2 (03:07→15:41)
[2020-11-02 06:24] LABS: Basophils % (A) 0 %; Eosinophils % (A) 0 %; HCT 27.6 % (34.0-46.0); HGB 8.7 gm/dL (11.4-16.0); Hypochromasia Slight; Lymphocytes # (A) 0.7 k/uL (1.0-4.8); Lymphocytes % (A) 6 %; MCH 29.6 pg (25.0-35.0); MCHC 31.5 g/dL (31.0-37.0); MCV 93.9 fL (80.0-100.0); Mean Platelet Volume 6.7; Monocytes # (A) 0.4 k/uL (0-1.0); Monocytes % (A) 4 %; Neutrophils # (A) 9.4 k/uL (1.3-7.7); Neutrophils % (A) 89 %; Platelet Count 622 k/uL (150-450); RBC 2.94 m/uL (3.80-5.40); RDW 15.1 % (11.5-15.5); WBC 10.7 k/uL (3.8-10.6)
[2020-11-02] MEDS: ALBUTEROL HFA INHALER INHALATION PRN (09:28)
[2020-11-02] MEDS: SYMBICORT 80-4.5 MCG INHALER INHALATION SCH ×2 (09:29→20:02)
[2020-11-02] MEDS: TIOTROPIUM 18 MCG/PUFF INHALER INHALATION SCH (09:29)
[2020-11-02] MEDS: ENOXAPARIN 40 MG/0.4 ML SYRINGE SQ SCH (09:40)
[2020-11-02] MEDS: CHOLECALCIFEROL 400 UNIT TAB PO SCH (09:40)
[2020-11-02] MEDS: ASCORBIC ACID 500 MG TAB PO SCH (09:40)
[2020-11-02] MEDS: ASPIRIN 81 MG PO SCH (09:40)
[2020-11-02] MEDS: CLOPIDOGREL 75 MG TAB PO SCH (09:41)
[2020-11-02] MEDS: LEVOFLOXACIN 750 MG TAB PO SCH (09:41)
[2020-11-02] MEDS: ZINC SULFATE 220 MG CAP PO SCH (09:41)
[2020-11-02] MEDS: metFORMIN 500 MG TAB PO SCH ×2 (09:42→20:17)
[2020-11-02] MEDS: polyethylene glycoL 3350 17 GM POWD.PACK PO SCH (09:42)
[2020-11-02] MEDS: buPROPion SR 150 MG TABLET.ER PO SCH ×2 (09:43→20:17)
[2020-11-02] MEDS: LEVOTHYROXINE 50 MCG TAB PO SCH (09:43)
[2020-11-02] MEDS: BACLOFEN 10 MG TAB PO SCH ×2 (09:43→20:17)
[2020-11-02] MEDS: GABAPENTIN 300 MG CAP PO SCH ×3 (09:44→20:17)
[2020-11-02] MEDS: DOCUSATE 100 MG CAP PO SCH ×2 (09:44→20:17)
[2020-11-02] MEDS: guaiFENesin SYRUP 100MG/5ML 200 MG/10 ML CUP PO SCH ×2 (09:44→20:18)
[2020-11-02] MEDS: risperiDONE 0.5 MG TAB PO SCH ×2 (09:47→20:17)
[2020-11-02 10:11] LABS: Albumin 2.9 g/dL (3.80-4.90); Albumin/Globulin Ratio 1.12 (1.60-3.17); Anion Gap 2.1 mmol/L (4.00-12.00); Calcium 8.8 mg/dL (8.7-10.3); Carbon Dioxide 35.9 mmol/L (21.6-31.8); Globulin 2.6 g/dL (1.6-3.3); Potassium 4.6 mmol/L (3.5-5.5); Total Bilirubin 0.3 mg/dL (0.3-1.2); Total Protein 5.5 g/dL (6.2-8.2)
--- NOTE | 2020-11-02 10:33 | P.PN ---
Subjective Progress Note Date: 11/02/20 Sofía Leslie is a 74 year-old female patient of Dr Jacob who presented to [facility] ER with a chief complaint of slurred speech, patient has a known history of bipolar disorder, schizophrenia, she is a poor historian her baseline mental status and speech pattern is not clear however caregivers. There is a change from her baseline and she was brought into emergency room to be evaluated for possible stroke. Patient was evaluated in the emergency room her temperature was 97.9 pulse 75 respiration 18 blood pressure 111/55 pulse ox 95% on room air, subsequently dropped to 83% on room air. Her laboratory data was significant for a white blood count of 26.8 sodium of 125 potassium of 6.0 and evidence of elevated AST at 101 and evidence of urinary tract infection. Patient underwent a computed tomography scan of the brain without contrast in the emergency room that revealed age-related atrophic and chronic small vessel disease changes without acute intracranial bleeding she also underwent computed tomography scan of the cervical spine due to recent fall there was no evidence for acute fracture or subluxation of the cervical spine CT angiogram of the brain did not reveal any significant abnormality in the chemehuevi of [place] CT angiogram of the neck revealed 80% stenosis on the left internal carotid artery chest x-ray was positive for left upper lobe infiltrate correlate for pneumonia. EKG revealed accelerated junctional rhythm with nonspecific T-wave abnormality. Patient was started on IV antibiotic for UTI and pneumonia. She was started on IV fluid for severe hyponatremia she was admitted to medical floor infectious disease consultation and cardiology consultation were requested. On 10/23/2020 patient was seen and examined on the medical floor she is alert, slightly confused in no apparent distress there is no fever or chills no headache or dizziness no chest pain no shortness of breath no cough no nausea or vomiting no abdominal pain no diarrhea and no urinary symptoms. On 10/24/2020 patient was seen and examined on the medical floor she is alert confused in no apparent distress there is no fever or chills no headache or dizziness no chest pain no shortness of breath no cough no nausea or vomiting no abdominal pain no diarrhea and no urinary symptoms, patient is being treated for pneumonia, urinary tract infection, mental status changes she seems to be related to metabolic encephalopathy related to her infections, case was discussed with neurology today Dr. Robbins no evidence of acute CVA at this point. On 10/25/2020 patient was seen and examined on the medical floor she is alert confused in no distress she is complaining of cough her oxygen saturation is borderline with 2 L of nasal cannula, there is no fever or chills no headache or dizziness no chest pain no shortness of breath no nausea or vomiting no abdominal pain no diarrhea no blood in the stools no burning with urination no frequency or urgency and no hematuria. Liver enzymes are elevated liver ultrasound reveals enlarged common bile duct gastroenterology consultation re quested. On 10/26/2020 patient was seen and examined on the medical floor she is alert and oriented 3 in no apparent distress today she is maintained on oxygen 3 L nasal cannula her pulse ox is 89 at this time will repeat chest x-ray will repeat Covid 19 testing there is no fever or chills no headache or dizziness no chest pain no shortness of breath patient is still having cough no nausea or vo miting no abdominal pain no diarrhea no blood in the stools no burning with urination no frequency or urgency no hematuria On 10/27/2020 patient was seen and examined on the medical floor she is alert and oriented, her condition is worse today she developed worsening shortness of breath was decreased O2 saturation repeat chest x-ray, reveals bilateral infiltrates, her Covid 19 testing on presentation was negative, repeat testing ordered yesterday is still pending, patient will be started on IV Decadron pulmonary consultation was requested yesterday she is also followed by infectious disease On 10/28/2020 patient was seen and examined on the medical floor she is alert and oriented, she developed worsening shortness of breath was decreased O2 saturation repeat chest x-ray, reveals bilateral infiltrates, her Covid 19 testing on presentation was negative, repeat testing ordered yesterday is negative again, patient will be started on IV Decadron pulmonary consultation was requested yesterday she is also followed by infectious disease. she is maintained on antibiotics for possible aspiration pneumonia. On 10/29/2020 patient was seen and examined on the medical floor she is alert and oriented 3 in no apparent distress. She remains on Airvo 40 L, and FiO2 of 74% with a pulse ox of 94%,, she is complaining of cough and shortness of breath otherwise she denies any complaints there is no fever or chills no headache or dizziness no chest pain no nausea or vomiting no abdominal pain no diarrhea no blood in the stools no burning with urination no frequency or urgency and no hematuria pulmonary and infectious disease consultants following On 10/30/2020 patient was seen and examined on the medical floor she is alert and oriented 3 in no apparent distress she is complaining of cough and shortness of breath she is still maintained on high flow oxygen otherwise she denies any complaints there is no fever or chills no headache or dizziness no chest pain no nausea or vomiting no abdominal pain no diarrhea and no urinary symptoms, IV heparin was discontinued patient was started on subcu Lovenox On 10/31/2020 patient was seen and examined on the medical floor she is alert and oriented in no distress she is still complaining of cough and shortness of breath she is maintained on high flow oxygen otherwise she denies any complaints there is no fever or chills no headache or dizziness no chest pain no known nausea or vomiting no abdominal pain no diarrhea no blood in the stools no burning with urination no frequency or urgency and no hematuria patient is followed by pulmonary critical care On 11/01/2020 patient was seen and examined on the medical floor she is alert an d oriented 3 in no distress she is complaining of cough and shortness of breath otherwise no complaints there is no fever or chills no headache or dizziness no chest pain no nausea or vomiting no abdominal pain no diarrhea no blood in the stools no burning with urination no frequency or urgency no hematuria 11/02/2020 patient is alert and oriented 3. Patient still having some cough and shortness of breath but per nursing staff oxygen is weaning down currently on 10 L high flow. White blood cell also improving to 10.7. Liver numbers also trending down. Patient remains on Zosyn and Levaquin Objective - Vital Signs Vital signs: Vital Signs Temp 98.0 F 11/02/20 05:00 Pulse 59 L 11/02/20 05:00 Resp 16 11/02/20 05:00 BP 116/59 11/01/20 23:00 Pulse Ox 100 11/02/20 05:00 Intake & Output 11/01/20 11/02/20 11/02/20 18:59 06:59 18:59 Intake Total 1180 Output Total 2 Balance 1180 -2 Intake: Oral 1180 Output: Urine 2 Other: Voiding Method Diaper Incontinent # Voids 1 2 2 # Bowel Movements 3 - Exam In general patient is alert slightly confused in no apparent distress HEENT head normocephalic and atraumatic Neck is supple no JVD no goiter no lymphadenopathy Chest exam reveals a few scattered rhonchi no wheezing Cardiac exam reveals regular heart sounds S1 and S2 no gallops no murmurs Abdomen is soft nontender no organomegaly with normal bowel sounds Extremity exam reveals no edema no cyanosis or clubbing Neurological examination reveals no gross focal deficit - Labs CBC & Chem 7: 11/02/20 05:42 11/02/20 05:42 Labs: Abnormal Lab Results - Last 24 Hours (Table) 11/01/20 11/02/20 11/02/20 Range/Units 07:38 05:42 05:42 WBC 10.7 H (3.8-10.6) k/uL RBC 2.94 L (3.80-5.40) m/uL Hgb 8.7 L (11.4-16.0) gm/dL Hct 27.6 L (34.0-46.0) % Plt Count 622 H (150-450) k/uL Neutrophils # 9.4 H (1.3-7.7) k/uL Lymphocytes # 0.7 L (1.0-4.8) k/uL Carbon Dioxide 35.9 H (21.6-31.8) mmol/L Anion Gap 2.10 L (4.00-12.00) mmol/L Creatinine 0.5 L 0.5 L (0.6-1.5) mg/dL BUN/Creatinine Ratio 30.00 H 26.00 H (12.00-20.00) Ratio Glucose 115 H (70-110) mg/dL AST 59 H (13-35) U/L ALT 160 H 121 H (8-44) U/L Total Protein 5.9 L 5.5 L (6.2-8.2) g/dL Albumin 3.00 L 2.90 L (3.80-4.90) g/dL Albumin/Globulin Ratio 1.03 L 1.12 L (1.60-3.17) g/dL Microbiology - Last 24 Hours (Table) 10/27/20 00:01 Blood Culture - Final Blood No Growth after 144 hours Assessment and Plan Plan: 1. Left upper lobe pneumonia. She remains on Levaquin and Zosyn. Infectious disease and pulmonary services are following. 2. Urinary tract infection. Per infectious disease patient has completed treatment is currently maintained on IV antibiotics for pneumonia 3. Hyponatremia. Resolved 4. Hyperkalemia resolved 5. Toxic Metabolic encephalopathy secondary to pneumonia. Patient was evaluated by neurology services. Per neurology services patient was started on aspirin and Plavix recommended 21 day antiplatelet therapy. She has been cleared by neurology services follow up with neurology services 2-3 weeks discharge 6. Elevated liver enzymes with abnormal liver ultrasound showing dilated common bile duct. Patient was evaluated by GI services. Per GI services recommended for nonemergent MRCP upon discharge. Liver numbers have improved DVT prophylaxis Lovenox. GI prophylaxis Pepcid Pulmonary and infectious disease currently following Patient was evaluated by GI and neurology services She remains on Levaquin and Zosyn IV antibiotic
[2020-11-02] MEDS: ALPRAZolam 0.25 MG TAB PO PRN (12:21)
--- NOTE | 2020-11-02 13:40 | P.PN ---
Subjective Progress Note Date: 11/02/20 Principal diagnosis: Acute hypoxic respiratory failure secondary to suspected aspiration pneumonia. CoVID 19 ruled out This is a 74-year-old female patient who follows with Dr. Jacob as her primary care provider. She has a history of hypertension, hypothyroidism, diabetes xena litus, chronic obstructive pulmonary disease, severe paranoia and schizophrenia, chronic and ongoing tobacco dependence. She was brought into the emergency room via EMS back on 10/21/2020 for altered mental status upon wakening. She was unable to provide any significant history. She did have slurred speech and possibly suffered a fall. CAT scan revealed age related atrophic and chronic small vessel ischemic changes without acute intracranial process. Urine positive for enterococcal faecalis. Blood culture revealed no growth. Chest x- ray did reveal left lung infiltrate. She had been initiated on Unasyn. Her oxygen requirements continued to worsen and she is currently on the AirVo high flow oxygen device at 30 L and 80% FiO2 to maintain O2 saturation in the low 90s. We're consulted today 10/27/2020 for the same. Chest x-ray reveals significant diffuse left mid to lower lung edema/infiltrate and worsening diffuse right lung edema/infiltrate. An ultrasound of the chest was requested and there was 0 amount of fluid in the right lung and 5.5 cm pocket in the left. Not enough to consider a thoracentesis. CAT scan of the chest revealed cardiomegaly with small bilateral pleural effusions. Background moderate emphysematous changes and scattered fibrotic changes. There are multifocal areas of organizing consolidation bilaterally consistent with CoVID 19 infection. Again, her initial screen was negative. She is seen on the regular medical floor. She is currently sitting up in bed. She is oriented to self only. She no she is in a facility unclear which one. Not sure of the day or the time. Not sure why she is here. White count 9.0. Hemoglobin 9.5. D-dimer 4.16. Sodium 134. Potassium 3.7. Creatinine 0.57. LDH 221. C-reactive protein 11.8. Pro-calcitonin 0.11. She is switched to Zosyn. Repeat CoVID 19 screen pending. on 10/28/2020 patient is seen in follow-up on Gen. medical surgical floor. She remains on high flow oxygen, per Airvo at 40 L/m, and FiO2 of 75%, with a pulse ox of 94%, she is awake and alert, she is quite hard of hearing, she is answering questions appropriate, she is oriented 3, she denies any worsening dyspnea, lung sounds are still positive for some scattered wheezes, she denies any chest pain, occasional cough. Patient has been afebrile, her CTA chest showed suboptimal study with of central pulmonary embolism, cardiomegaly with small bilateral pleural effusions, on a background of moderate emphysematous and to a lesser degree scattered pulmonary fibrotic changes. There are multifocal areas of organizing consolidation with the possibility of Covid 19 infection progression. However patient tested negative on 4 different occasions for coronavirus PCR. And her most recent test on 10/27/2020 also came back nega tive. She remains on IV Decadron, and Zosyn for possibility of aspiration pneumonia. On 10/29/2020 patient seen in follow-up on medical surgical floor. She remains on Airvo 40 L, and FiO2 of 74% with a pulse ox of 94%, still requiring high flow oxygen, she has a congested cough, but not bringing up any sputum, remains Zosyn for empiric antibiotic coverage, she is on bronchodilators, her mentation has improved, patient is awake and alert, she is answering questions appropriately. She's been afebrile. Denies any chest pain, or hemoptysis, no new chest x-ray, her urine culture came back positive for Enterococcus faecalis, is sensitive to penicillin, blood cultures have shown no growth. ID service is following. The patient is seen today 10/30/2020 in follow-up on the regular medical floor. She is currently resting comfortably in bed. He remains on AirVo high flow oxygen at 35 L and 73% FiO2 to maintain O2 saturations in the high 80s low 90s. Patient is restless at times and pulse her device off. She's currently afebrile. Chest x-ray continues to reveal diffuse pleural parenchymal changes with mild improvement in the left lung base. White count 10.8. Hemoglobin 9.0. Sodium 135. Potassium 4.4. Creatinine 0.5. Remains on bronchodilators, IV Solu-Medrol, Zosyn. The patient is seen today 10/31/2020 in follow-up on the regular medical floor. She is sitting up in bed having lunch. Awake and alert in no acute distress. She remains on AirVo high flow oxygen at 35 L and 80% FiO2. She is currently afebrile. Urine culture was positive for Enterococcus faecalis and the blood cultures revealed no growth. Coronavirus screen was negative 4. White count 12.3. Hemoglobin 8.9. She remains on Zosyn and Levaquin. Remains on bronchodilators and IV Solu-Medrol. Lovenox for DVT prophylaxis. The patient is seen today 11/01/2020 in follow-up on the regular medical floor. She is currently sitting up in bed. Having lunch. Maintaining O2 saturations up to 100% on 35 L and 85% on the AirVo high flow oxygen device. She's afebrile. White count 12.6. Hemoglobin 9.2. She remains on Levaquin and Zosyn. Continued on bronchodilators, IV Solu-Medrol, Lovenox. The patient is seen today 11/02/2020 in follow-up on the regular medical floor. She is currently awake and alert in no acute distress. She's been converted from the airflow O2 high flow nasal cannula. Currently at 11 L. Maintaining O2 saturation the high 90s. White count 10.7. Hemoglobin 8.7. Sodium 135. Potassium 4.6. Creatinine 0.5. She remains on bronchodilators, IV Solu-Medrol, Lovenox. Antibiotics in form of Levaquin and Zosyn. Objective - Vital Signs Vital signs: Vital Signs Temp 98.2 F 11/02/20 11:18 Pulse 63 11/02/20 11:18 Resp 16 11/02/20 11:18 BP 170/75 11/02/20 11:18 Pulse Ox 100 11/02/20 11:18 Intake & Output 11/01/20 11/02/20 11/02/20 18:59 06:59 18:59 Intake Total 1180 Output Total 2 Balance 1180 -2 Intake: Oral 1180 Output: Urine 2 Other: Voiding Method Diaper Incontinent # Voids 1 2 2 # Bowel Movements 3 - Exam GENERAL EXAM: Alert, restless, on 11 L high flow nasal cannula, comfortable in no apparent distress. HEAD: Normocephalic. EYES: Normal reaction of pupils, equal size. NOSE: Clear with pink turbinates. THROAT: No erythema or exudates. NECK: No masses, no JVD. CHEST: No chest wall deformity. LUNGS: Equal air entry with bilateral scattered rhonchi, diminished CVS: S1 and S2 normal with no audible murmur, regular rhythm. ABDOMEN: No hepatosplenomegaly, normal bowel sounds, no guarding or rigidity. SPINE: No scoliosis or deformity SKIN: No rashes CENTRAL NERVOUS SYSTEM: No focal deficits, tone is normal in all 4 extremities. EXTREMITIES: There is no peripheral edema. No clubbing, no cyanosis. Peripheral pulses are intact. - Labs CBC & Chem 7: 11/02/20 05:42 11/02/20 05:42 Labs: Abnormal Lab Results - Last 24 Hours (Table) 11/01/20 11/02/20 11/02/20 Range/Units 07:38 05:42 05:42 WBC 10.7 H (3.8-10.6) k/uL RBC 2.94 L (3.80-5.40) m/uL Hgb 8.7 L (11.4-16.0) gm/dL Hct 27.6 L (34.0-46.0) % Plt Count 622 H (150-450) k/uL Neutrophils # 9.4 H (1.3-7.7) k/uL Lymphocytes # 0.7 L (1.0-4.8) k/uL Carbon Dioxide 35.9 H (21.6-31.8) mmol/L Anion Gap 2.10 L (4.00-12.00) mmol/L Creatinine 0.5 L 0.5 L (0.6-1.5) mg/dL BUN/Creatinine Ratio 30.00 H 26.00 H (12.00-20.00) Ratio Glucose 115 H (70-110) mg/dL AST 59 H (13-35) U/L ALT 160 H 121 H (8-44) U/L Total Protein 5.9 L 5.5 L (6.2-8.2) g/dL Albumin 3.00 L 2.90 L (3.80-4.90) g/dL Albumin/Globulin Ratio 1.03 L 1.12 L (1.60-3.17) g/dL Microbiology - Last 24 Hours (Table) 10/27/20 00:01 Blood Culture - Final Blood No Growth after 144 hours Assessment and Plan Assessment: 1 Acute hypoxic respiratory failure secondary to suspected aspiration pneumonia, CoVID 19 ruled out 4 2 Altered mental status suspect secondary to above 3 Acute exacerbation of chronic obstructive pulmonary disease 4 Chronic and ongoing tobacco dependence 5 Severe paranoia and bipolar disorder 6 history of congestive heart failure 7 History of valvular heart disease 8 Hypothyroidism 9 Diabetes mellitus 10 Hypertension Plan: The patient was seen and evaluated by Dr. Robbins Continue the current treatment plan Titrate down the oxygen to keep O2 saturations greater than 88% Repeat a chest x-ray in the a.m. We will continue to follow and make further recommendations based on her clinical status I, the cosigning physician, performed a history & physical examination of the patient. Lungs sounds with bilateral rhonchi, diminished. Maintaining good O2 saturations in the 90s on 11 L high flow nasal cannula. I discussed the ass essment and plan of care with my nurse practitioner, Sona Parker. I attest to the above note as dictated by her.
[2020-11-02 20:08] LABS: Glucose,Whole Blood 116 mg/dL (75-99)
[2020-11-02] MEDS: ATORVASTATIN 40 MG TAB PO SCH (20:17)
--- NOTE | 2020-11-02 22:47 | PN ---
PROGRESS NOTE DATE OF SERVICE: 11/02/2020 REASON FOR FOLLOWUP: Pneumonia and UTI. INTERVAL HISTORY: The patient is currently afebrile. The patient is breathing slightly comfortably decreased. Denies any chest pain. Did have a cough but decreased intensity. No nausea. No vomiting. No abdominal pain. No diarrhea. PHYSICAL EXAMINATION: Blood pressure 143/69, pulse of 68, temperature 99.1. She is 93% on 9 L nasal cannula. General description is an elderly female lying in bed in no distress. Respiratory system: Unlabored breathing. Decreased breath sounds. No wheeze. Heart S1, S2 regular rate and rhythm. Abdomen soft, no tenderness. LAB: Hemoglobin 8.4, white count 10.7, BUN of 13, creatinine 0.5. DIAGNOSTIC IMPRESSION AND PLAN: Patient with pneumonia and concern for possible atypical bacteria versus viral pneumonia although has been multiple. Covid testing came back negative. The patient to continue with Levaquin and Solu-Medrol for now. Has received 7 days of Zosyn. Will give another three more days and continue supportive care. Thank you. MMODL / IJN: [id number] /
[2020-11-03] MEDS: PIPERACILLIN-TAZOBACTAM 3.375 GM in SODIUM CHLORIDE 0.9% 100 ML IVPB SCH ×3 (00:48→16:44)
[2020-11-03] MEDS: methylPREDNISolone SOD SUCCI 125 MG/2 ML VIAL IV SCH ×4 (00:48→16:49)
[2020-11-03 04:26] LABS: Glucose,Whole Blood 112 mg/dL (75-99)
[2020-11-03] MEDS: SODIUM CHLORIDE 0.9% 1,000 ML IV SCH ×2 (05:26→14:39)
[2020-11-03 07:28] LABS: Glucose,Whole Blood 147 mg/dL (75-99)
[2020-11-03 07:57] LABS: Basophils % (A) 0 %; Eosinophils % (A) 0 %; HCT 28.3 % (34.0-46.0); Hypochromasia Slight; Lymphocytes # (A) 0.7 k/uL (1.0-4.8); Lymphocytes % (A) 6 %; MCH 29.8 pg (25.0-35.0); MCHC 31.8 g/dL (31.0-37.0); MCV 93.7 fL (80.0-100.0); Mean Platelet Volume 6.7; Monocytes # (A) 0.4 k/uL (0-1.0); Monocytes % (A) 3 %; Neutrophils # (A) 10.8 k/uL (1.3-7.7); Neutrophils % (A) 90 %; Platelet Count 695 k/uL (150-450); RBC 3.02 m/uL (3.80-5.40)
[2020-11-03] MEDS: polyethylene glycoL 3350 17 GM POWD.PACK PO SCH (08:27)
[2020-11-03] MEDS: LEVOFLOXACIN 750 MG TAB PO SCH (08:27)
[2020-11-03] MEDS: ENOXAPARIN 40 MG/0.4 ML SYRINGE SQ SCH (08:27)
[2020-11-03] MEDS: guaiFENesin SYRUP 100MG/5ML 200 MG/10 ML CUP PO SCH ×2 (08:27→20:46)
[2020-11-03] MEDS: ASPIRIN 81 MG PO SCH (08:27)
[2020-11-03] MEDS: CHOLECALCIFEROL 400 UNIT TAB PO SCH (08:28)
[2020-11-03] MEDS: FAMOTIDINE 20 MG TAB PO SCH (08:28)
[2020-11-03] MEDS: LEVOTHYROXINE 50 MCG TAB PO SCH (08:28)
[2020-11-03] MEDS: GABAPENTIN 300 MG CAP PO SCH ×3 (08:28→20:46)
[2020-11-03] MEDS: CLOPIDOGREL 75 MG TAB PO SCH (08:28)
[2020-11-03] MEDS: BACLOFEN 10 MG TAB PO SCH ×2 (08:28→20:45)
[2020-11-03] MEDS: ASCORBIC ACID 500 MG TAB PO SCH (08:28)
[2020-11-03] MEDS: ZINC SULFATE 220 MG CAP PO SCH (08:28)
[2020-11-03] MEDS: risperiDONE 0.5 MG TAB PO SCH ×2 (08:29→21:13)
[2020-11-03] MEDS: metFORMIN 500 MG TAB PO SCH ×2 (08:29→20:45)
[2020-11-03] MEDS: DOCUSATE 100 MG CAP PO SCH ×2 (08:29→20:45)
--- NOTE | 2020-11-03 08:55 | XR ---
EXAMINATION TYPE: XR chest 1V portable DATE OF EXAM: 11/03/2020 Comparison: 10/30/2020 Clinical History: 75-year-old female Pneumonia Findings: Heart upper limits of normal in size. Continued small left effusion. Diffuse interstitial opacities p ersist. More confluent density left base, right upper lobe, and peripheral left upper lobe is redemon strated but with some improvement in the right upper lobe. Impression: Continued diffuse interstitial infiltrates along with superimposed airspace disease in the upper lobe s and left base. There has been partial improvement in the right upper lobe.
[2020-11-03] MEDS: TIOTROPIUM 18 MCG/PUFF INHALER INHALATION SCH (09:00)
[2020-11-03] MEDS: SYMBICORT 80-4.5 MCG INHALER INHALATION SCH ×2 (09:00→21:04)
[2020-11-03] MEDS: ALBUTEROL HFA INHALER INHALATION PRN ×4 (09:01→21:05)
[2020-11-03] MEDS: buPROPion SR 150 MG TABLET.ER PO SCH (10:00)
[2020-11-03 10:40] LABS: Glucose,Whole Blood 150 mg/dL (75-99)
--- NOTE | 2020-11-03 12:13 | P.PN ---
Subjective Progress Note Date: 11/03/20 Sofía Leslie is a 74 year-old female patient of Dr Jacob who presented to [facility] ER with a chief complaint of slurred speech, patient has a known history of bipolar disorder, schizophrenia, she is a poor historian her baseline mental status and speech pattern is not clear however caregivers. There is a change from her baseline and she was brought into emergency room to be evaluated for possible stroke. Patient was evaluated in the emergency room her temperature was 97.9 pulse 75 respiration 18 blood pressure 111/55 pulse ox 95% on room air, subsequently dropped to 83% on room air. Her laboratory data was significant for a white blood count of 26.8 sodium of 125 potassium of 6.0 and evidence of elevated AST at 101 and evidence of urinary tract infection. Patient underwent a computed tomography scan of the brain without contrast in the emergency room that revealed age-related atrophic and chronic small vessel disease changes without acute intracranial bleeding she also underwent computed tomography scan of the cervical spine due to recent fall there was no evidence for acute fracture or subluxation of the cervical spine CT angiogram of the brain did not reveal any significant abnormality in the [place] of [place] CT angiogram of the neck revealed 80% stenosis on the left internal carotid artery chest x-ray was positive for left upper lobe infiltrate correlate for pneumonia. EKG revealed accelerated junctional rhythm with nonspecific T-wave abnormality. Patient was started on IV antibiotic for UTI and pneumonia. She was started on IV fluid for severe hyponatremia she was admitted to medical floor infectious disease consultation and cardiology consultation were requested. On 10/23/2020 patient was seen and examined on the medical floor she is alert, slightly confused in no apparent distress there is no fever or chills no headache or dizziness no chest pain no shortness of breath no cough no nausea or vomiting no abdominal pain no diarrhea and no urinary symptoms. On 10/24/2020 patient was seen and examined on the medical floor she is alert confused in no apparent distress there is no fever or chills no headache or dizziness no chest pain no shortness of breath no cough no nausea or vomiting no abdominal pain no diarrhea and no urinary symptoms, patient is being treated for pneumonia, urinary tract infection, mental status changes she seems to be related to metabolic encephalopathy related to her infections, case was discussed with neurology today Dr. Robbins no evidence of acute CVA at this point. On 10/25/2020 patient was seen and examined on the medical floor she is alert confused in no distress she is complaining of cough her oxygen saturation is borderline with 2 L of nasal cannula, there is no fever or chills no headache or dizziness no chest pain no shortness of breath no nausea or vomiting no abdominal pain no diarrhea no blood in the stools no burning with urination no frequency or urgency and no hematuria. Liver enzymes are elevated liver ultrasound reveals enlarged common bile duct gastroenterology consultation re quested. On 10/26/2020 patient was seen and examined on the medical floor she is alert and oriented 3 in no apparent distress today she is maintained on oxygen 3 L nasal cannula her pulse ox is 89 at this time will repeat chest x-ray will repeat Covid 19 testing there is no fever or chills no headache or dizziness no chest pain no shortness of breath patient is still having cough no nausea or vo miting no abdominal pain no diarrhea no blood in the stools no burning with urination no frequency or urgency no hematuria On 10/27/2020 patient was seen and examined on the medical floor she is alert and oriented, her condition is worse today she developed worsening shortness of breath was decreased O2 saturation repeat chest x-ray, reveals bilateral infiltrates, her Covid 19 testing on presentation was negative, repeat testing ordered yesterday is still pending, patient will be started on IV Decadron pulmonary consultation was requested yesterday she is also followed by infectious disease On 10/28/2020 patient was seen and examined on the medical floor she is alert and oriented, she developed worsening shortness of breath was decreased O2 saturation repeat chest x-ray, reveals bilateral infiltrates, her Covid 19 testing on presentation was negative, repeat testing ordered yesterday is negative again, patient will be started on IV Decadron pulmonary consultation was requested yesterday she is also followed by infectious disease. she is maintained on antibiotics for possible aspiration pneumonia. On 10/29/2020 patient was seen and examined on the medical floor she is alert and oriented 3 in no apparent distress. She remains on Airvo 40 L, and FiO2 of 74% with a pulse ox of 94%,, she is complaining of cough and shortness of breath otherwise she denies any complaints there is no fever or chills no headache or dizziness no chest pain no nausea or vomiting no abdominal pain no diarrhea no blood in the stools no burning with urination no frequency or urgency and no hematuria pulmonary and infectious disease consultants following On 10/30/2020 patient was seen and examined on the medical floor she is alert and oriented 3 in no apparent distress she is complaining of cough and shortness of breath she is still maintained on high flow oxygen otherwise she denies any complaints there is no fever or chills no headache or dizziness no chest pain no nausea or vomiting no abdominal pain no diarrhea and no urinary symptoms, IV heparin was discontinued patient was started on subcu Lovenox On 10/31/2020 patient was seen and examined on the medical floor she is alert and oriented in no distress she is still complaining of cough and shortness of breath she is maintained on high flow oxygen otherwise she denies any complaints there is no fever or chills no headache or dizziness no chest pain no known nausea or vomiting no abdominal pain no diarrhea no blood in the stools no burning with urination no frequency or urgency and no hematuria patient is followed by pulmonary critical care On 11/01/2020 patient was seen and examined on the medical floor she is alert an d oriented 3 in no distress she is complaining of cough and shortness of breath otherwise no complaints there is no fever or chills no headache or dizziness no chest pain no nausea or vomiting no abdominal pain no diarrhea no blood in the stools no burning with urination no frequency or urgency no hematuria 11/02/2020 patient is alert and oriented 3. Patient still having some cough and shortness of breath but per nursing staff oxygen is weaning down currently on 10 L high flow. White blood cell also improving to 10.7. Liver numbers also trending down. Patient remains on Zosyn and Levaquin On 11/03/2020 patient is alert and oriented 3 resting comfortably in bed. Oxygen status is improving. Patient remains on 10 L. Patient remains on IV Zosyn per infectious disease. h Objective - Vital Signs Vital signs: Vital Signs Temp 98.5 F 11/03/20 05:00 Pulse 71 11/03/20 08:00 Resp 16 11/03/20 08:00 BP 109/58 11/03/20 05:00 Pulse Ox 90 L 11/03/20 05:00 Intake & Output 11/02/20 11/03/20 11/03/20 18:59 06:59 18:59 Intake Total 120 590 Output Total 2 Balance 118 590 Intake: Oral 120 590 Output: Urine 2 Other: Voiding Method Diaper Diaper Diaper Incontinent Incontinent Incontinent # Voids 2 2 # Bowel Movements 3 1 - Exam In general patient is alert slightly confused in no apparent distress HEENT head normocephalic and atraumatic Neck is supple no JVD no goiter no lymphadenopathy Chest exam reveals a few scattered rhonchi no wheezing Cardiac exam reveals regular heart sounds S1 and S2 no gallops no murmurs Abdomen is soft nontender no organomegaly with normal bowel sounds Extremity exam reveals no edema no cyanosis or clubbing Neurological examination reveals no gross focal deficit - Labs CBC & Chem 7: 11/03/20 07:27 11/02/20 05:42 Labs: Abnormal Lab Results - Last 24 Hours (Table) 11/02/20 11/03/20 11/03/20 Range/Units 20:07 04:25 07:26 WBC (3.8-10.6) k/uL RBC (3.80-5.40) m/uL Hgb (11.4-16.0) gm/dL Hct (34.0-46.0) % Plt Count (150-450) k/uL Neutrophils # (1.3-7.7) k/uL Lymphocytes # (1.0-4.8) k/uL POC Glucose (mg/dL) 116 H 112 H 147 H (75-99) mg/dL 11/03/20 11/03/20 Range/Units 07:27 10:39 WBC 12.0 H (3.8-10.6) k/uL RBC 3.02 L (3.80-5.40) m/uL Hgb 9.0 L (11.4-16.0) gm/dL Hct 28.3 L (34.0-46.0) % Plt Count 695 H (150-450) k/uL Neutrophils # 10.8 H (1.3-7.7) k/uL Lymphocytes # 0.7 L (1.0-4.8) k/uL POC Glucose (mg/dL) 150 H (75-99) mg/dL Assessment and Plan Plan: 1. Left upper lobe pneumonia. She remains on Levaquin and Zosyn. Infectious disease and pulmonary services are following. 2. Urinary tract infection. Per infectious disease patient has completed treatment is currently maintained on IV antibiotics for pneumonia 3. Hyponatremia. Resolved 4. Hyperkalemia resolved 5. Toxic Metabolic encephalopathy secondary to pneumonia. Patient was evaluated by neurology services. Per neurology services patient was started on aspirin and Plavix recommended 21 day antiplatelet therapy. She has been cleared by neurology services follow up with neurology services 2-3 weeks discharge 6. Elevated liver enzymes with abnormal liver ultrasound showing dilated common bile duct. Patient was evaluated by GI services. Per GI services recommended for nonemergent MRCP upon discharge. Liver numbers have improved DVT prophylaxis Lovenox. GI prophylaxis Pepcid Pulmonary and infectious disease currently following Patient was evaluated by GI and neurology services She remains on Levaquin and Zosyn IV antibiotic
--- NOTE | 2020-11-03 14:12 | P.PN ---
Subjective Progress Note Date: 11/03/20 Principal diagnosis: Acute hypoxic respiratory failure secondary to suspected aspiration pneumonia. CoVID 19 ruled out This is a 74-year-old female patient who follows with Dr. Jacob as her primary care provider. She has a history of hypertension, hypothyroidism, diabetes xena litus, chronic obstructive pulmonary disease, severe paranoia and schizophrenia, chronic and ongoing tobacco dependence. She was brought into the emergency room via EMS back on 10/21/2020 for altered mental status upon wakening. She was unable to provide any significant history. She did have slurred speech and possibly suffered a fall. CAT scan revealed age related atrophic and chronic small vessel ischemic changes without acute intracranial process. Urine positive for enterococcal faecalis. Blood culture revealed no growth. Chest x- ray did reveal left lung infiltrate. She had been initiated on Unasyn. Her oxygen requirements continued to worsen and she is currently on the AirVo high flow oxygen device at 30 L and 80% FiO2 to maintain O2 saturation in the low 90s. We're consulted today 10/27/2020 for the same. Chest x-ray reveals significant diffuse left mid to lower lung edema/infiltrate and worsening diffuse right lung edema/infiltrate. An ultrasound of the chest was requested and there was 0 amount of fluid in the right lung and 5.5 cm pocket in the left. Not enough to consider a thoracentesis. CAT scan of the chest revealed cardiomegaly with small bilateral pleural effusions. Background moderate emphysematous changes and scattered fibrotic changes. There are multifocal areas of organizing consolidation bilaterally consistent with CoVID 19 infection. Again, her initial screen was negative. She is seen on the regular medical floor. She is currently sitting up in bed. She is oriented to self only. She no she is in a facility unclear which one. Not sure of the day or the time. Not sure why she is here. White count 9.0. Hemoglobin 9.5. D-dimer 4.16. Sodium 134. Potassium 3.7. Creatinine 0.57. LDH 221. C-reactive protein 11.8. Pro-calcitonin 0.11. She is switched to Zosyn. Repeat CoVID 19 screen pending. on 10/28/2020 patient is seen in follow-up on Gen. medical surgical floor. She remains on high flow oxygen, per Airvo at 40 L/m, and FiO2 of 75%, with a pulse ox of 94%, she is awake and alert, she is quite hard of hearing, she is answering questions appropriate, she is oriented 3, she denies any worsening dyspnea, lung sounds are still positive for some scattered wheezes, she denies any chest pain, occasional cough. Patient has been afebrile, her CTA chest showed suboptimal study with of central pulmonary embolism, cardiomegaly with small bilateral pleural effusions, on a background of moderate emphysematous and to a lesser degree scattered pulmonary fibrotic changes. There are multifocal areas of organizing consolidation with the possibility of Covid 19 infection progression. However patient tested negative on 4 different occasions for coronavirus PCR. And her most recent test on 10/27/2020 also came back nega tive. She remains on IV Decadron, and Zosyn for possibility of aspiration pneumonia. On 10/29/2020 patient seen in follow-up on medical surgical floor. She remains on Airvo 40 L, and FiO2 of 74% with a pulse ox of 94%, still requiring high flow oxygen, she has a congested cough, but not bringing up any sputum, remains Zosyn for empiric antibiotic coverage, she is on bronchodilators, her mentation has improved, patient is awake and alert, she is answering questions appropriately. She's been afebrile. Denies any chest pain, or hemoptysis, no new chest x-ray, her urine culture came back positive for Enterococcus faecalis, is sensitive to penicillin, blood cultures have shown no growth. ID service is following. The patient is seen today 10/30/2020 in follow-up on the regular medical floor. She is currently resting comfortably in bed. He remains on AirVo high flow oxygen at 35 L and 73% FiO2 to maintain O2 saturations in the high 80s low 90s. Patient is restless at times and pulse her device off. She's currently afebrile. Chest x-ray continues to reveal diffuse pleural parenchymal changes with mild improvement in the left lung base. White count 10.8. Hemoglobin 9.0. Sodium 135. Potassium 4.4. Creatinine 0.5. Remains on bronchodilators, IV Solu-Medrol, Zosyn. The patient is seen today 10/31/2020 in follow-up on the regular medical floor. She is sitting up in bed having lunch. Awake and alert in no acute distress. She remains on AirVo high flow oxygen at 35 L and 80% FiO2. She is currently afebrile. Urine culture was positive for Enterococcus faecalis and the blood cultures revealed no growth. Coronavirus screen was negative 4. White count 12.3. Hemoglobin 8.9. She remains on Zosyn and Levaquin. Remains on bronchodilators and IV Solu-Medrol. Lovenox for DVT prophylaxis. The patient is seen today 11/01/2020 in follow-up on the regular medical floor. She is currently sitting up in bed. Having lunch. Maintaining O2 saturations up to 100% on 35 L and 85% on the AirVo high flow oxygen device. She's afebrile. White count 12.6. Hemoglobin 9.2. She remains on Levaquin and Zosyn. Continued on bronchodilators, IV Solu-Medrol, Lovenox. The patient is seen today 11/02/2020 in follow-up on the regular medical floor. She is currently awake and alert in no acute distress. She's been converted from the airflow O2 high flow nasal cannula. Currently at 11 L. Maintaining O2 saturation the high 90s. White count 10.7. Hemoglobin 8.7. Sodium 135. Potassium 4.6. Creatinine 0.5. She remains on bronchodilators, IV Solu-Medrol, Lovenox. Antibiotics in form of Levaquin and Zosyn. The patient is seen today 11/03/2020 in follow-up on the regular medical floor. She is resting comfortably in bed. Awake and alert in no acute distress. She is maintaining O2 saturations up to 100% on 10 L high flow nasal cannula. Currently afebrile. White count 12.0. Hemoglobin 9.0. This x-ray continues to show diffuse interstitial infiltrates along with superimposed airspace disease in the upper lobes and left base. There is been partial improvement in the right upper lobe. Objective - Vital Signs Vital signs: Vital Signs Temp 98.1 F 11/03/20 11:00 Pulse 61 11/03/20 11:00 Resp 20 11/03/20 11:00 BP 170/79 11/03/20 11:00 Pulse Ox 100 11/03/20 11:00 Intake & Output 11/02/20 11/03/20 11/03/20 18:59 06:59 18:59 Intake Total 120 590 Output Total 2 Balance 118 590 Intake: Oral 120 590 Output: Urine 2 Other: Voiding Method Diaper Diaper Diaper Incontinent Incontinent Incontinent # Voids 2 2 # Bowel Movements 3 1 - Exam GENERAL EXAM: Alert, restless, on 10 L high flow nasal cannula, comfortable in no apparent distress. HEAD: Normocephalic. EYES: Normal reaction of pupils, equal size. NOSE: Clear with pink turbinates. THROAT: No erythema or exudates. NECK: No masses, no JVD. CHEST: No chest wall deformity. LUNGS: Equal air entry with bilateral scattered rhonchi, diminished CVS: S1 and S2 normal with no audible murmur, regular rhythm. ABDOMEN: No hepatosplenomegaly, normal bowel sounds, no guarding or rigidity. SPINE: No scoliosis or deformity SKIN: No rashes CENTRAL NERVOUS SYSTEM: No focal deficits, tone is normal in all 4 extremities. EXTREMITIES: There is no peripheral edema. No clubbing, no cyanosis. Peripheral pulses are intact. - Labs CBC & Chem 7: 11/03/20 07:27 11/02/20 05:42 Labs: Abnormal Lab Results - Last 24 Hours (Table) 11/02/20 11/03/20 11/03/20 Range/Units 20:07 04:25 07:26 WBC (3.8-10.6) k/uL RBC (3.80-5.40) m/uL Hgb (11.4-16.0) gm/dL Hct (34.0-46.0) % Plt Count (150-450) k/uL Neutrophils # (1.3-7.7) k/uL Lymphocytes # (1.0-4.8) k/uL POC Glucose (mg/dL) 116 H 112 H 147 H (75-99) mg/dL 11/03/20 11/03/20 Range/Units 07:27 10:39 WBC 12.0 H (3.8-10.6) k/uL RBC 3.02 L (3.80-5.40) m/uL Hgb 9.0 L (11.4-16.0) gm/dL Hct 28.3 L (34.0-46.0) % Plt Count 695 H (150-450) k/uL Neutrophils # 10.8 H (1.3-7.7) k/uL Lymphocytes # 0.7 L (1.0-4.8) k/uL POC Glucose (mg/dL) 150 H (75-99) mg/dL Assessment and Plan Assessment: 1 Acute hypoxic respiratory failure secondary to suspected aspiration pneumonia, CoVID 19 ruled out 4 2 Altered mental status suspect secondary to above 3 Acute exacerbation of chronic obstructive pulmonary disease 4 Chronic and ongoing tobacco dependence 5 Severe paranoia and bipolar disorder 6 history of congestive heart failure 7 History of valvular heart disease 8 Hypothyroidism 9 Diabetes mellitus 10 Hypertension Plan: The patient was seen and evaluated by Dr. Robbins Chest x-ray and labs reviewed She has been slow to progress Antibiotics per ID services Titrate down the oxygen to keep O2 saturations greater than 88% We will continue to follow and make further recommendations based on her clinical status I, the cosigning physician, performed a history & physical examination of the patient. Lungs sounds with bilateral rhonchi, diminished. Maintaining good O2 saturations in the 90s on 11 L high flow nasal cannula. I discussed the assessment and plan of care with my nurse practitioner, Sona Parker. I attest to the above note as dictated by her.
[2020-11-03 17:57] LABS: Glucose,Whole Blood 119 mg/dL (75-99)
[2020-11-03 20:02] LABS: Glucose,Whole Blood 124 mg/dL (75-99)
[2020-11-03] MEDS: ATORVASTATIN 40 MG TAB PO SCH (20:45)
[2020-11-03] MEDS: ALPRAZolam 0.25 MG TAB PO PRN (20:46)
--- NOTE | 2020-11-03 23:31 | PN ---
PROGRESS NOTE DATE OF SERVICE: 11/03/2020 REASON FOR FOLLOWUP: Pneumonia. INTERVAL HISTORY: Patient is currently afebrile. The patient is breathing more comfortably. Patient denies having any chest pain or shortness of breath. Minimal cough. No abdominal pain or diarrhea. PHYSICAL EXAMINATION: Blood pressure 116/86, pulse of 73, temperature 98.3. She is 100% on 10 L nasal cannula. General description is an elderly female lying in bed in no distress. Respiratory system: Unlabored breathing, decreased breath sounds in the base, with no wheeze. Heart S1, S2. Regular rate and rhythm. ABDOMEN: Soft. No tenderness. LABS: Hemoglobin is 9.8, white count 5.0. DIAGNOSTIC IMPRESSION AND PLAN: Patient admitted with pneumonia for which the patient has been treated with Zosyn and Levaquin. Minimal clinical improvement. Plan to finish therapy with oral Levaquin and continue supportive care. MMODL / IJN: [id number] /
[2020-11-04] MEDS: buPROPion SR 150 MG TABLET.ER PO SCH ×3 (01:04→20:27)
[2020-11-04] MEDS: PIPERACILLIN-TAZOBACTAM 3.375 GM in SODIUM CHLORIDE 0.9% 100 ML IVPB SCH ×3 (01:05→15:52)
[2020-11-04] MEDS: methylPREDNISolone SOD SUCCI 125 MG/2 ML VIAL IV SCH ×4 (01:06→17:22)
[2020-11-04] MEDS: SODIUM CHLORIDE 0.9% 1,000 ML IV SCH ×3 (04:53→20:29)
[2020-11-04 06:37] LABS: Basophils % (A) 0 %; Eosinophils # (A) 0.1 k/uL (0-0.7); Eosinophils % (A) 1 %; HCT 28.4 % (34.0-46.0); HGB 9.2 gm/dL (11.4-16.0); Hypochromasia Slight; Lymphocytes # (A) 0.6 k/uL (1.0-4.8); Lymphocytes % (A) 7 %; MCH 30.3 pg (25.0-35.0); MCHC 32.2 g/dL (31.0-37.0); Mean Platelet Volume 6.8; Monocytes # (A) 0.3 k/uL (0-1.0); Monocytes % (A) 4 %; Neutrophils # (A) 7.7 k/uL (1.3-7.7); Neutrophils % (A) 88 %; Platelet Count 664 k/uL (150-450); RBC 3.02 m/uL (3.80-5.40); RDW 15.2 % (11.5-15.5); WBC 8.8 k/uL (3.8-10.6)
[2020-11-04 07:21] LABS: Glucose,Whole Blood 147 mg/dL (75-99)
[2020-11-04] MEDS: ENOXAPARIN 40 MG/0.4 ML SYRINGE SQ SCH (08:38)
[2020-11-04] MEDS: BACLOFEN 10 MG TAB PO SCH ×2 (08:39→20:27)
[2020-11-04] MEDS: polyethylene glycoL 3350 17 GM POWD.PACK PO SCH (08:39)
[2020-11-04] MEDS: guaiFENesin SYRUP 100MG/5ML 200 MG/10 ML CUP PO SCH ×2 (08:39→20:26)
[2020-11-04] MEDS: LEVOFLOXACIN 750 MG TAB PO SCH (08:39)
[2020-11-04] MEDS: LEVOTHYROXINE 50 MCG TAB PO SCH (08:39)
[2020-11-04] MEDS: ASPIRIN 81 MG PO SCH (08:39)
[2020-11-04] MEDS: CHOLECALCIFEROL 400 UNIT TAB PO SCH (08:40)
[2020-11-04] MEDS: ASCORBIC ACID 500 MG TAB PO SCH (08:40)
[2020-11-04] MEDS: DOCUSATE 100 MG CAP PO SCH ×2 (08:40→20:26)
[2020-11-04] MEDS: risperiDONE 0.5 MG TAB PO SCH ×2 (08:40→20:26)
[2020-11-04] MEDS: FAMOTIDINE 20 MG TAB PO SCH (08:40)
[2020-11-04] MEDS: ZINC SULFATE 220 MG CAP PO SCH (08:40)
[2020-11-04] MEDS: CLOPIDOGREL 75 MG TAB PO SCH (08:41)
[2020-11-04] MEDS: GABAPENTIN 300 MG CAP PO SCH ×3 (08:41→20:26)
[2020-11-04] MEDS: metFORMIN 500 MG TAB PO SCH ×2 (08:41→20:27)
[2020-11-04] MEDS: SYMBICORT 80-4.5 MCG INHALER INHALATION SCH ×2 (09:14→20:07)
[2020-11-04] MEDS: TIOTROPIUM 18 MCG/PUFF INHALER INHALATION SCH (09:14)
[2020-11-04] MEDS: ALBUTEROL HFA INHALER INHALATION PRN ×4 (09:14→20:07)
[2020-11-04 09:16] LABS: Albumin 2.9 g/dL (3.80-4.90); Albumin/Globulin Ratio 1.12 (1.60-3.17); Anion Gap 2.9 mmol/L (4.00-12.00); Calcium 8.5 mg/dL (8.7-10.3); Carbon Dioxide 33.1 mmol/L (21.6-31.8); Globulin 2.6 g/dL (1.6-3.3); Potassium 4.4 mmol/L (3.5-5.5); Total Bilirubin 0.4 mg/dL (0.3-1.2); Total Protein 5.5 g/dL (6.2-8.2)
[2020-11-04] MEDS: ALPRAZolam 0.25 MG TAB PO PRN (10:50)
[2020-11-04 11:50] LABS: Glucose,Whole Blood 122 mg/dL (75-99)
--- NOTE | 2020-11-04 13:59 | P.PN ---
Subjective Progress Note Date: 11/04/20 74-year-old female patient with multiple medical problems and comorbidities with acute hypoxic respiratory failure. The patient is currently on 10 L of oxygen by nasal cannula and she was treated for aspiration pneumonia. COVID 19 infection was ruled out. The patient has hypertension, hypothyroidism and diabetes mellitus and COPD. The patient has severe paranoia and schizophrenia. She is a chronic cigarette smoker. She has been in the hospital for quite some time treated with high flow oxygen and a combination of antibiotics. Chest x- ray from yesterday from 11/03/2020 showed diffuse interstitial infiltrates along with some airspace disease in the upper lobes and left lung base. There was s ome partial improvement in the right upper lobe area. The patient remains on Symbicort, albuterol HFA, Levaquin 750 mg by mouth daily and IV Zosyn. and Lovenox for DVT prophylaxis dose of 40 mg subcu daily. The white cell count is not elevated. The patient is a 32 with a creatinine of 0.5. The patient apparently is breathing more comfortably. She is afebrile. No chest pain. Minimal cough. No nausea. No vomiting. No diarrhea. She was treated with Zosyn and Levaquin. Her recovery was slow and the patient is currently finishing a course of Levaquin. Objective - Vital Signs Vital signs: Vital Signs Temp 97.5 F L 11/04/20 11:40 Pulse 63 11/04/20 11:40 Resp 16 11/04/20 11:40 BP 142/63 11/04/20 11:40 Pulse Ox 93 L 11/04/20 11:40 Intake & Output 11/03/20 11/04/20 11/04/20 18:59 06:59 18:59 Intake Total 240 590 Balance 240 590 Intake: Oral 240 590 Other: Voiding Method Diaper Bedpan Bedpan Incontinent Diaper Diaper Incontinent Incontinent # Voids 3 2 - Exam GENERAL EXAM: Alert, restless, on 10 L high flow nasal cannula, comfortable in no apparent distress. HEAD: Normocephalic. EYES: Normal reaction of pupils, equal size. NOSE: Clear with pink turbinates. THROAT: No erythema or exudates. NECK: No masses, no JVD. CHEST: No chest wall deformity. LUNGS: Equal air entry with bilateral scattered rhonchi, diminished CVS: S1 and S2 normal with no audible murmur, regular rhythm. ABDOMEN: No hepatosplenomegaly, normal bowel sounds, no guarding or rigidity. SPINE: No scoliosis or deformity SKIN: No rashes CENTRAL NERVOUS SYSTEM: No focal deficits, tone is normal in all 4 extremities. EXTREMITIES: There is no peripheral edema. No clubbing, no cyanosis. Peripheral pulses are intact. - Labs CBC & Chem 7: 11/04/20 06:26 11/04/20 06:26 Labs: Abnormal Lab Results - Last 24 Hours (Table) 11/03/20 11/03/20 11/04/20 Range/Units 17:55 20:00 06:26 RBC 3.02 L (3.80-5.40) m/uL Hgb 9.2 L (11.4-16.0) gm/dL Hct 28.4 L (34.0-46.0) % Plt Count 664 H (150-450) k/uL Lymphocytes # 0.6 L (1.0-4.8) k/uL Sodium (135-145) mmol/L Carbon Dioxide (21.6-31.8) mmol/L Anion Gap (4.00-12.00) mmol/L Creatinine (0.6-1.5) mg/dL BUN/Creatinine Ratio (12.00-20.00) Ratio Glucose (70-110) mg/dL POC Glucose (mg/dL) 119 H 124 H (75-99) mg/dL Calcium (8.7-10.3) mg/dL ALT (8-44) U/L Total Protein (6.2-8.2) g/dL Albumin (3.80-4.90) g/dL Albumin/Globulin Ratio (1.60-3.17) g/dL 11/04/20 11/04/20 11/04/20 Range/Units 06:26 07:20 11:42 RBC (3.80-5.40) m/uL Hgb (11.4-16.0) gm/dL Hct (34.0-46.0) % Plt Count (150-450) k/uL Lymphocytes # (1.0-4.8) k/uL Sodium 134 L (135-145) mmol/L Carbon Dioxide 33.1 H (21.6-31.8) mmol/L Anion Gap 2.90 L (4.00-12.00) mmol/L Creatinine 0.5 L (0.6-1.5) mg/dL BUN/Creatinine Ratio 26.00 H (12.00-20.00) Ratio Glucose 144 H (70-110) mg/dL POC Glucose (mg/dL) 147 H 122 H (75-99) mg/dL Calcium 8.5 L (8.7-10.3) mg/dL ALT 69 H (8-44) U/L Total Protein 5.5 L (6.2-8.2) g/dL Albumin 2.90 L (3.80-4.90) g/dL Albumin/Globulin Ratio 1.12 L (1.60-3.17) g/dL Assessment and Plan Plan: 1 Acute hypoxic respiratory failure secondary to suspected aspiration pneumonia, CoVID 19 ruled out 4, consider also post aspiration acute lung injury/ARDS. The patient is currently completing a course of Levaquinand Zosyn. She was t reated with Zosyn and Levaquin 2 Altered mental status suspect secondary to above, improved 3 Acute exacerbation of chronic obstructive pulmonary disease, improved 4 Chronic and ongoing tobacco dependence 5 Severe paranoia and bipolar disorder 6 history of congestive heart failure 7 History of valvular heart disease 8 Hypothyroidism 9 Diabetes mellitus 10 Hypertension Plan: She has been slow to progress Antibiotics per ID services Titrate down the oxygen to keep O2 saturations greater than 88% We will continue to follow and make further recommendations based on her clinical status
--- NOTE | 2020-11-04 15:18 | P.PN ---
Subjective Progress Note Date: 11/04/20 HISTORY OF PRESENT ILLNESS This is a 75-year-old female admitted to the hospital and treated for possible aspiration pneumonia, gram-negative pneumonia. Patient has been covered with Zosyn and Levaquin transitioned to oral. Patient complains of cough that is productive. Nurse relates the patient has had problems with hallucinations. Patient denies having any chest pain. Patient has been a febrile, heart rate 70, blood pressure 146/60, pulse ox 90% on high flow nasal cannula with FiO2 of 80, flow rate 35. Repeat blood work reveals WBC 12.3, hemoglobin 8.9, platelet count 578. Electrolytes and renal function normal. Blood sugar 189. AST 85, ALT 178. 12: Patient states that she is feeling better today. She denies any chest pain, no shortness of breath, no cough. She denies any abdominal symptoms. Large amount of oxygen with pulse ox 100% on 15 L high flow. Blood pressure 161/84, heart rate 67, afebrile. Repeat blood work reveals an ABC 12.6, hemoglobin 9.2, platelet count 622. 12: Patient states that she continues to have a cough. She denies any shortness of breath, no chest pain. She states that she is feeling fine. She denies having any abdominal symptoms, no abdominal pain, nausea, vomiting, diarrhea. She has been treated with Zosyn and Levaquin.. PHYSICAL EXAMINATION Gen: This is a thin 75-year-old female. HEENT: Head is atraumatic, normocephalic. Pupils equal, round. Sclerae is anicteric. LUNGS: Decreased breath sounds bilaterally and clear to auscultation. No intercostal retractions. No accessory muscle usage. HEART: Regular rate and rhythm. No murmur. ABDOMEN: Soft. Bowel sounds are present. No masses. No tenderness. EXTREMITIES: No pedal edema. No calf tenderness. NEUROLOGICAL: Patient is awake, alert. ASSESSMENT Acute aspiration pneumonia COVID-19 ruled out on 4 different specimens Metabolic encephalopathy secondary to pneumonia Acute exacerbation of COPD Tobacco use and dependence Acute urinary tract infection, completed treatment PLAN Continue Levaquin 750 mg oral daily for 5 more days outpatient. Prescription has been sent to her pharmacy. Patient is cleared for discharge from infectious disease. The above dictated assessment and findings were discussed with Dr. Jarrell. The impression and plan of care have been directed as dictated. Jessica Currie nurse practitioner acting as scribe for Dr. Jarrell. Objective - Vital Signs Vital signs: Vital Signs Temp 97.5 F L 11/04/20 11:40 Pulse 63 11/04/20 11:40 Resp 16 11/04/20 11:40 BP 142/63 11/04/20 11:40 Pulse Ox 93 L 11/04/20 11:40 Intake & Output 11/03/20 11/04/20 11/04/20 18:59 06:59 18:59 Intake Total 240 590 Balance 240 590 Intake: Oral 240 590 Other: Voiding Method Diaper Bedpan Bedpan Incontinent Diaper Diaper Incontinent Incontinent # Voids 3 2 - Labs CBC & Chem 7: 11/04/20 06:26 11/04/20 06:26 Labs: Abnormal Lab Results - Last 24 Hours (Table) 11/03/20 11/03/20 11/04/20 Range/Units 17:55 20:00 06:26 RBC 3.02 L (3.80-5.40) m/uL Hgb 9.2 L (11.4-16.0) gm/dL Hct 28.4 L (34.0-46.0) % Plt Count 664 H (150-450) k/uL Lymphocytes # 0.6 L (1.0-4.8) k/uL Sodium (135-145) mmol/L Carbon Dioxide (21.6-31.8) mmol/L Anion Gap (4.00-12.00) mmol/L Creatinine (0.6-1.5) mg/dL BUN/Creatinine Ratio (12.00-20.00) Ratio Glucose (70-110) mg/dL POC Glucose (mg/dL) 119 H 124 H (75-99) mg/dL Calcium (8.7-10.3) mg/dL ALT (8-44) U/L Total Protein (6.2-8.2) g/dL Albumin (3.80-4.90) g/dL Albumin/Globulin Ratio (1.60-3.17) g/dL 11/04/20 11/04/20 11/04/20 Range/Units 06:26 07:20 11:42 RBC (3.80-5.40) m/uL Hgb (11.4-16.0) gm/dL Hct (34.0-46.0) % Plt Count (150-450) k/uL Lymphocytes # (1.0-4.8) k/uL Sodium 134 L (135-145) mmol/L Carbon Dioxide 33.1 H (21.6-31.8) mmol/L Anion Gap 2.90 L (4.00-12.00) mmol/L Creatinine 0.5 L (0.6-1.5) mg/dL BUN/Creatinine Ratio 26.00 H (12.00-20.00) Ratio Glucose 144 H (70-110) mg/dL POC Glucose (mg/dL) 147 H 122 H (75-99) mg/dL Calcium 8.5 L (8.7-10.3) mg/dL ALT 69 H (8-44) U/L Total Protein 5.5 L (6.2-8.2) g/dL Albumin 2.90 L (3.80-4.90) g/dL Albumin/Globulin Ratio 1.12 L (1.60-3.17) g/dL
[2020-11-04 17:00] LABS: Glucose,Whole Blood 113 mg/dL (75-99)
--- NOTE | 2020-11-04 17:31 | P.PN ---
Subjective Progress Note Date: 11/04/20 Sofía Leslie is a 74 year-old female patient of Dr Jacob who presented to [facility] ER with a chief complaint of slurred speech, patient has a known history of bipolar disorder, schizophrenia, she is a poor historian her baseline mental status and speech pattern is not clear however caregivers. There is a change from her baseline and she was brought into emergency room to be evaluated for possible stroke. Patient was evaluated in the emergency room her temperature was 97.9 pulse 75 respiration 18 blood pressure 111/55 pulse ox 95% on room air, subsequently dropped to 83% on room air. Her laboratory data was significant for a white blood count of 26.8 sodium of 125 potassium of 6.0 and evidence of elevated AST at 101 and evidence of urinary tract infection. Patient underwent a computed tomography scan of the brain without contrast in the emergency room that revealed age-related atrophic and chronic small vessel disease changes without acute intracranial bleeding she also underwent computed tomography scan of the cervical spine due to recent fall there was no evidence for acute fracture or subluxation of the cervical spine CT angiogram of the brain did not reveal any significant abnormality in the [place] CT angiogram of the neck revealed 80% stenosis on the left internal carotid artery chest x-ray was positive for left upper lobe infiltrate correlate for pneumonia. EKG revealed accelerated junctional rhythm with nonspecific T-wave abnormality. Patient was started on IV antibiotic for UTI and pneumonia. She was started on IV fluid for severe hyponatremia she was admitted to medical floor infectious disease consultation and cardiology consultation were requested. On 10/23/2020 patient was seen and examined on the medical floor she is alert, slightly confused in no apparent distress there is no fever or chills no headache or dizziness no chest pain no shortness of breath no cough no nausea or vomiting no abdominal pain no diarrhea and no urinary symptoms. On 10/24/2020 patient was seen and examined on the medical floor she is alert confused in no apparent distress there is no fever or chills no headache or dizziness no chest pain no shortness of breath no cough no nausea or vomiting no abdominal pain no diarrhea and no urinary symptoms, patient is being treated for pneumonia, urinary tract infection, mental status changes she seems to be related to metabolic encephalopathy related to her infections, case was discussed with neurology today Dr. Robbins no evidence of acute CVA at this point. On 10/25/2020 patient was seen and examined on the medical floor she is alert confused in no distress she is complaining of cough her oxygen saturation is borderline with 2 L of nasal cannula, there is no fever or chills no headache or dizziness no chest pain no shortness of breath no nausea or vomiting no abdominal pain no diarrhea no blood in the stools no burning with urination no frequency or urgency and no hematuria. Liver enzymes are elevated liver ultrasound reveals enlarged common bile duct gastroenterology consultation re quested. On 10/26/2020 patient was seen and examined on the medical floor she is alert and oriented 3 in no apparent distress today she is maintained on oxygen 3 L nasal cannula her pulse ox is 89 at this time will repeat chest x-ray will repeat Covid 19 testing there is no fever or chills no headache or dizziness no chest pain no shortness of breath patient is still having cough no nausea or vo miting no abdominal pain no diarrhea no blood in the stools no burning with urination no frequency or urgency no hematuria On 10/27/2020 patient was seen and examined on the medical floor she is alert and oriented, her condition is worse today she developed worsening shortness of breath was decreased O2 saturation repeat chest x-ray, reveals bilateral infiltrates, her Covid 19 testing on presentation was negative, repeat testing ordered yesterday is still pending, patient will be started on IV Decadron pulmonary consultation was requested yesterday she is also followed by infectious disease On 10/28/2020 patient was seen and examined on the medical floor she is alert and oriented, she developed worsening shortness of breath was decreased O2 saturation repeat chest x-ray, reveals bilateral infiltrates, her Covid 19 testing on presentation was negative, repeat testing ordered yesterday is negative again, patient will be started on IV Decadron pulmonary consultation was requested yesterday she is also followed by infectious disease. she is maintained on antibiotics for possible aspiration pneumonia. On 10/29/2020 patient was seen and examined on the medical floor she is alert and oriented 3 in no apparent distress. She remains on Airvo 40 L, and FiO2 of 74% with a pulse ox of 94%,, she is complaining of cough and shortness of breath otherwise she denies any complaints there is no fever or chills no headache or dizziness no chest pain no nausea or vomiting no abdominal pain no diarrhea no blood in the stools no burning with urination no frequency or urgency and no hematuria pulmonary and infectious disease consultants following On 10/30/2020 patient was seen and examined on the medical floor she is alert and oriented 3 in no apparent distress she is complaining of cough and shortness of breath she is still maintained on high flow oxygen otherwise she denies any complaints there is no fever or chills no headache or dizziness no chest pain no nausea or vomiting no abdominal pain no diarrhea and no urinary symptoms, IV heparin was discontinued patient was started on subcu Lovenox On 10/31/2020 patient was seen and examined on the medical floor she is alert and oriented in no distress she is still complaining of cough and shortness of breath she is maintained on high flow oxygen otherwise she denies any complaints there is no fever or chills no headache or dizziness no chest pain no known nausea or vomiting no abdominal pain no diarrhea no blood in the stools no burning with urination no frequency or urgency and no hematuria patient is followed by pulmonary critical care On 11/01/2020 patient was seen and examined on the medical floor she is alert an d oriented 3 in no distress she is complaining of cough and shortness of breath otherwise no complaints there is no fever or chills no headache or dizziness no chest pain no nausea or vomiting no abdominal pain no diarrhea no blood in the stools no burning with urination no frequency or urgency no hematuria 11/02/2020 patient is alert and oriented 3. Patient still having some cough and shortness of breath but per nursing staff oxygen is weaning down currently on 10 L high flow. White blood cell also improving to 10.7. Liver numbers also trending down. Patient remains on Zosyn and Levaquin On 11/03/2020 patient is alert and oriented 3 resting comfortably in bed. Oxygen status is improving. Patient remains on 10 L. Patient remains on IV Zosyn per infectious disease. On 11/04/2020 patient was seen and examined on the medical floor she is alert confused in no apparent distress she is still complaining of cough and shortness of breath she is still on 10 L of oxygen per minutes otherwise she denies any complaints there is no fever or chills no headache or dizziness no chest pain no nausea or vomiting no abdominal pain no diarrhea and no urinary symptoms Objective - Vital Signs Vital signs: Vital Signs Temp 98.1 F 11/04/20 05:00 Pulse 60 11/04/20 05:00 Resp 20 11/04/20 05:00 BP 175/82 11/04/20 05:00 Pulse Ox 100 11/04/20 05:00 Intake & Output 11/03/20 11/04/20 11/04/20 18:59 06:59 18:59 Intake Total 240 590 Balance 240 590 Intake: Oral 240 590 Other: Voiding Method Diaper Bedpan Incontinent Diaper Incontinent # Voids 3 2 - Exam In general patient is alert slightly confused in no apparent distress HEENT head normocephalic and atraumatic Neck is supple no JVD no goiter no lymphadenopathy Chest exam reveals a few scattered rhonchi no wheezing Cardiac exam reveals regular heart sounds S1 and S2 no gallops no murmurs Abdomen is soft nontender no organomegaly with normal bowel sounds Extremity exam reveals no edema no cyanosis or clubbing Neurological examination reveals no gross focal deficit - Labs CBC & Chem 7: 11/04/20 06:26 11/04/20 06:26 Labs: Abnormal Lab Results - Last 24 Hours (Table) 11/03/20 11/03/20 11/03/20 Range/Units 07:26 07:27 10:39 WBC 12.0 H (3.8-10.6) k/uL RBC 3.02 L (3.80-5.40) m/uL Hgb 9.0 L (11.4-16.0) gm/dL Hct 28.3 L (34.0-46.0) % Plt Count 695 H (150-450) k/uL Neutrophils # 10.8 H (1.3-7.7) k/uL Lymphocytes # 0.7 L (1.0-4.8) k/uL POC Glucose (mg/dL) 147 H 150 H (75-99) mg/dL 11/03/20 11/03/20 11/04/20 Range/Units 17:55 20:00 06:26 WBC (3.8-10.6) k/uL RBC 3.02 L (3.80-5.40) m/uL Hgb 9.2 L (11.4-16.0) gm/dL Hct 28.4 L (34.0-46.0) % Plt Count 664 H (150-450) k/uL Neutrophils # (1.3-7.7) k/uL Lymphocytes # 0.6 L (1.0-4.8) k/uL POC Glucose (mg/dL) 119 H 124 H (75-99) mg/dL Assessment and Plan Plan: 1. Left upper lobe pneumonia. She remains on Levaquin and Zosyn. Infectious disease and pulmonary services are following. 2. Urinary tract infection. Per infectious disease patient has completed treatment is currently maintained on IV antibiotics for pneumonia 3. Hyponatremia. Resolved 4. Hyperkalemia resolved 5. Toxic Metabolic encephalopathy secondary to pneumonia. Patient was evaluated by neurology services. Per neurology services patient was started on aspirin and Plavix recommended 21 day antiplatelet therapy. She has been cleared by neurology services follow up with neurology services 2-3 weeks discharge 6. Elevated liver enzymes with abnormal liver ultrasound showing dilated common bile duct. Patient was evaluated by GI services. Per GI services recommended for nonemergent MRCP upon discharge. Liver numbers have improved DVT prophylaxis Lovenox. GI prophylaxis Pepcid Pulmonary and infectious disease currently following Patient was evaluated by GI and neurology services She remains on Levaquin and Zosyn IV antibiotic
[2020-11-04] MEDS: ATORVASTATIN 40 MG TAB PO SCH (20:26)
[2020-11-05] MEDS: methylPREDNISolone SOD SUCCI 125 MG/2 ML VIAL IV SCH ×4 (00:29→16:39)
[2020-11-05] MEDS: PIPERACILLIN-TAZOBACTAM 3.375 GM in SODIUM CHLORIDE 0.9% 100 ML IVPB SCH ×3 (00:29→15:17)
[2020-11-05 05:49] LABS: Basophils % (A) 0 %; Eosinophils % (A) 0 %; HCT 28.8 % (34.0-46.0); HGB 9.1 gm/dL (11.4-16.0); Hypochromasia Slight; Lymphocytes # (A) 0.7 k/uL (1.0-4.8); Lymphocytes % (A) 8 %; MCH 29.7 pg (25.0-35.0); MCHC 31.5 g/dL (31.0-37.0); MCV 94.1 fL (80.0-100.0); Mean Platelet Volume 7.2; Monocytes # (A) 0.4 k/uL (0-1.0); Monocytes % (A) 5 %; Neutrophils # (A) 7.2 k/uL (1.3-7.7); Neutrophils % (A) 86 %; Platelet Count 692 k/uL (150-450); RBC 3.07 m/uL (3.80-5.40); RDW 15.2 % (11.5-15.5); WBC 8.4 k/uL (3.8-10.6)
[2020-11-05 07:15] LABS: Glucose,Whole Blood 137 mg/dL (75-99)
[2020-11-05] MEDS: ALBUTEROL HFA INHALER INHALATION PRN ×4 (09:03→19:44)
[2020-11-05] MEDS: TIOTROPIUM 18 MCG/PUFF INHALER INHALATION SCH (09:03)
[2020-11-05] MEDS: SYMBICORT 80-4.5 MCG INHALER INHALATION SCH ×2 (09:03→19:44)
[2020-11-05 09:44] LABS: Albumin 2.9 g/dL (3.80-4.90); Albumin/Globulin Ratio 1.12 (1.60-3.17); Anion Gap 4.4 mmol/L (4.00-12.00); Calcium 8.7 mg/dL (8.7-10.3); Carbon Dioxide 31.6 mmol/L (21.6-31.8); Globulin 2.6 g/dL (1.6-3.3); Potassium 4.4 mmol/L (3.5-5.5); Total Bilirubin 0.3 mg/dL (0.2-1.2); Total Protein 5.5 g/dL (6.2-8.2)
[2020-11-05] MEDS: ZINC SULFATE 220 MG CAP PO SCH (10:00)
[2020-11-05] MEDS: GABAPENTIN 300 MG CAP PO SCH ×3 (10:00→22:08)
[2020-11-05] MEDS: ENOXAPARIN 40 MG/0.4 ML SYRINGE SQ SCH (10:01)
[2020-11-05] MEDS: BACLOFEN 10 MG TAB PO SCH ×2 (10:01→22:13)
[2020-11-05] MEDS: guaiFENesin SYRUP 100MG/5ML 200 MG/10 ML CUP PO SCH ×2 (10:01→22:27)
[2020-11-05] MEDS: ASCORBIC ACID 500 MG TAB PO SCH (10:01)
[2020-11-05] MEDS: risperiDONE 0.5 MG TAB PO SCH ×2 (10:01→22:08)
[2020-11-05] MEDS: LEVOTHYROXINE 50 MCG TAB PO SCH (10:01)
[2020-11-05] MEDS: polyethylene glycoL 3350 17 GM POWD.PACK PO SCH (10:01)
[2020-11-05] MEDS: metFORMIN 500 MG TAB PO SCH ×2 (10:02→22:08)
[2020-11-05] MEDS: LEVOFLOXACIN 750 MG TAB PO SCH (10:02)
[2020-11-05] MEDS: buPROPion SR 150 MG TABLET.ER PO SCH ×2 (10:02→22:08)
[2020-11-05] MEDS: ASPIRIN 81 MG PO SCH (10:02)
[2020-11-05] MEDS: CHOLECALCIFEROL 400 UNIT TAB PO SCH (10:03)
[2020-11-05] MEDS: DOCUSATE 100 MG CAP PO SCH ×2 (10:03→22:07)
[2020-11-05] MEDS: FAMOTIDINE 20 MG TAB PO SCH (10:03)
[2020-11-05] MEDS: CLOPIDOGREL 75 MG TAB PO SCH (10:03)
[2020-11-05 11:52] LABS: Glucose,Whole Blood 165 mg/dL (75-99)
--- NOTE | 2020-11-05 13:29 | P.PN ---
Subjective Progress Note Date: 11/05/20 74-year-old female patient with multiple medical problems and comorbidities with acute hypoxic respiratory failure. The patient is currently on 10 L of oxygen by nasal cannula and she was treated for aspiration pneumonia. COVID 19 infection was ruled out. The patient has hypertension, hypothyroidism and diabetes mellitus and COPD. The patient has severe paranoia and schizophrenia. She is a chronic cigarette smoker. She has been in the hospital for quite some time treated with high flow oxygen and a combination of antibiotics. Chest x- ray from yesterday from 11/03/2020 showed diffuse interstitial infiltrates along with some airspace disease in the upper lobes and left lung base. There was s ome partial improvement in the right upper lobe area. The patient remains on Symbicort, albuterol HFA, Levaquin 750 mg by mouth daily and IV Zosyn. and Lovenox for DVT prophylaxis dose of 40 mg subcu daily. The white cell count is not elevated. The patient is a 32 with a creatinine of 0.5. The patient apparently is breathing more comfortably. She is afebrile. No chest pain. Minimal cough. No nausea. No vomiting. No diarrhea. She was treated with Zosyn and Levaquin. Her recovery was slow and the patient is currently finishing a course of Levaquin. on 11/05/2020, the patient has been weaned down to 5 L of oxygen by nasal cannula.She is feeling better. She has a limited cough. No significant sputum production. She is on a combination of Levaquin and Zosyn. No systemic steroid s at this point in time. She is on DVT prophylaxis with Lovenox 40 mg subcu. She is tolerating her diet. Objective - Vital Signs Vital signs: Vital Signs Temp 97.7 F 11/05/20 11:00 Pulse 69 11/05/20 11:00 Resp 20 11/05/20 11:00 BP 147/67 11/05/20 11:00 Pulse Ox 93 L 11/05/20 11:00 Intake & Output 11/04/20 11/05/20 11/05/20 18:59 06:59 18:59 Intake Total 440 590 Balance 440 590 Weight 46 kg Intake: IV 240 Sodium Chloride 0.9% 1, 240 000 ml @ 80 mls/hr IV . [id number] [facility] Rx#:[id number] Intake, IV Titration 200 Amount Piperacillin-Tazobactam 3 200 .375 gm In Sodium Chloride 0.9% 100 ml @ 25 mls/hr IVPB Q8HR [facility] Rx# :[id number] Oral 590 Other: Voiding Method Bedpan Bedpan Bedpan Diaper Diaper Diaper Incontinent Incontinent Incontinent # Voids 1 - Exam GENERAL EXAM: Alert, restless, on 5 L high flow nasal cannula, comfortable in no apparent distress. HEAD: Normocephalic. EYES: Normal reaction of pupils, equal size. NOSE: Clear with pink turbinates. THROAT: No erythema or exudates. NECK: No masses, no JVD. CHEST: No chest wall deformity. LUNGS: Equal air entry with bilateral scattered rhonchi, diminished CVS: S1 and S2 normal with no audible murmur, regular rhythm. ABDOMEN: No hepatosplenomegaly, normal bowel sounds, no guarding or rigidity. SPINE: No scoliosis or deformity SKIN: No rashes CENTRAL NERVOUS SYSTEM: No focal deficits, tone is normal in all 4 extremities. EXTREMITIES: There is no peripheral edema. No clubbing, no cyanosis. Peripheral pulses are intact. - Labs CBC & Chem 7: 11/05/20 05:29 11/05/20 05:29 Labs: Abnormal Lab Results - Last 24 Hours (Table) 11/04/20 11/05/20 11/05/20 Range/Units 16:58 05:29 05:29 RBC 3.07 L (3.80-5.40) m/uL Hgb 9.1 L (11.4-16.0) gm/dL Hct 28.8 L (34.0-46.0) % Plt Count 692 H (150-450) k/uL Lymphocytes # 0.7 L (1.0-4.8) k/uL Creatinine 0.5 L (0.6-1.5) mg/dL BUN/Creatinine Ratio 30.00 H (12.00-20.00) Ratio Glucose 136 H (70-110) mg/dL POC Glucose (mg/dL) 113 H (75-99) mg/dL ALT 56 H (8-44) U/L Total Protein 5.5 L (6.2-8.2) g/dL Albumin 2.90 L (3.80-4.90) g/dL Albumin/Globulin Ratio 1.12 L (1.60-3.17) g/dL 11/05/20 11/05/20 Range/Units 07:11 11:50 RBC (3.80-5.40) m/uL Hgb (11.4-16.0) gm/dL Hct (34.0-46.0) % Plt Count (150-450) k/uL Lymphocytes # (1.0-4.8) k/uL Creatinine (0.6-1.5) mg/dL BUN/Creatinine Ratio (12.00-20.00) Ratio Glucose (70-110) mg/dL POC Glucose (mg/dL) 137 H 165 H (75-99) mg/dL ALT (8-44) U/L Total Protein (6.2-8.2) g/dL Albumin (3.80-4.90) g/dL Albumin/Globulin Ratio (1.60-3.17) g/dL Assessment and Plan Plan: 1 Acute hypoxic respiratory failure secondary to suspected aspiration pneumonia, CoVID 19 ruled out 4, consider also post aspiration acute lung injury/ARDS. The patient is currently completing a course of Levaquin and Zosyn. She was treated with Zosyn and Levaquin. Clinically the patient is improving. O xygenation is also improved and the patient is currently on 5 L of oxygen by nasal cannula. On examination, she has diminished breath sounds that she needs to be working more aggressively with her incentive spirometer. 2 Altered mental status suspect secondary to above, improved 3 Acute exacerbation of chronic obstructive pulmonary disease, improved 4 Chronic and ongoing tobacco dependence 5 Severe paranoia and bipolar disorder 6 history of congestive heart failure 7 History of valvular heart disease 8 Hypothyroidism 9 Diabetes mellitus 10 Hypertension Plan: She has been slow to progress, had oxidation is improved. Repeat chest x-ray in the morning. Antibiotics per ID services Titrate down the oxygen to keep O2 saturations greater than 88% We will continue to follow and make further recommendations based on her clinical status
--- NOTE | 2020-11-05 14:19 | P.PN ---
Subjective Progress Note Date: 11/05/20 HISTORY OF PRESENT ILLNESS This is a 75-year-old female admitted to the hospital and treated for possible aspiration pneumonia, gram-negative pneumonia. Patient has been covered with Zosyn and Levaquin transitioned to oral. Patient complains of cough that is productive. Nurse relates the patient has had problems with hallucinations. Patient denies having any chest pain. Patient has been a febrile, heart rate 70, blood pressure 146/60, pulse ox 90% on high flow nasal cannula with FiO2 of 80, flow rate 35. Repeat blood work reveals WBC 12.3, hemoglobin 8.9, platelet count 578. Electrolytes and renal function normal. Blood sugar 189. AST 85, ALT 178. 11/01: Patient states that she is feeling better today. She denies any chest pain, no shortness of breath, no cough. She denies any abdominal symptoms. Large amount of oxygen with pulse ox 100% on 15 L high flow. Blood pressure 161/84, heart rate 67, afebrile. Repeat blood work reveals an ABC 12.6, hemoglobin 9.2, platelet count 622. 11/04: Patient states that she continues to have a cough. She denies any shortness of breath, no chest pain. She states that she is feeling fine. She denies having any abdominal symptoms, no abdominal pain, nausea, vomiting, diarrhea. She has been treated with Zosyn and Levaquin.. 11/05: Patient denies having cough, shortness of breath, chest pain. She denies any abdominal symptoms including pain, nausea or vomiting. No diarrhea. She has been afebrile, heart rate 69, blood pressure 147/67, pulse ox 93% on high flow nasal cannula 5 L. WBC 8.4. Hemoglobin 9.1. Platelet count 692. Lymphocytes 2.7. Creatinine 0.5. She is tolerating diet but continues to have decreased appetite. PHYSICAL EXAMINATION Gen: This is a thin cachectic appearing 75-year-old female. HEENT: Head is atraumatic, normocephalic. Pupils equal, round. Sclerae is anicteric. LUNGS: Decreased breath sounds bilaterally and clear to auscultation. No intercostal retractions. No accessory muscle usage. HEART: Regular rate and rhythm. No murmur. ABDOMEN: Soft. Bowel sounds are present. No masses. No tenderness. EXTREMITIES: No pedal edema. No calf tenderness. NEUROLOGICAL: Patient is awake, alert. ASSESSMENT Acute aspiration pneumonia COVID-19 ruled out on 4 different specimens Metabolic encephalopathy secondary to pneumonia Acute exacerbation of COPD Tobacco use and dependence Acute urinary tract infection, completed treatment PLAN Continue Levaquin 750 mg oral daily for 5 more days outpatient. Prescription has been sent to her pharmacy. Patient is cleared for discharge from infectious disease once oxygen was titrated to a reasonable amount for discharge. The above dictated assessment and findings were discussed with Dr. Jarrell. The impression and plan of care have been directed as dictated. Jessica Currie nurse practitioner acting as scribe for Dr. Jarrell. Objective - Vital Signs Vital signs: Vital Signs Temp 97.7 F 11/05/20 11:00 Pulse 69 11/05/20 11:00 Resp 20 11/05/20 11:00 BP 147/67 11/05/20 11:00 Pulse Ox 93 L 11/05/20 11:00 Intake & Output 11/04/20 11/05/20 11/05/20 18:59 06:59 18:59 Intake Total 440 590 Balance 440 590 Intake: IV 240 Sodium Chloride 0.9% 1, 240 000 ml @ 80 mls/hr IV . [id number] [facility] Rx#:[id number] Intake, IV Titration 200 Amount Piperacillin-Tazobactam 3 200 .375 gm In Sodium Chloride 0.9% 100 ml @ 25 mls/hr IVPB Q8HR [facility] Rx# :[id number] Oral 590 Other: Voiding Method Bedpan Bedpan Bedpan Diaper Diaper Diaper Incontinent Incontinent Incontinent # Voids 1 - Labs CBC & Chem 7: 11/05/20 05:29 11/05/20 05:29 Labs: Abnormal Lab Results - Last 24 Hours (Table) 11/04/20 11/05/20 11/05/20 Range/Units 16:58 05:29 05:29 RBC 3.07 L (3.80-5.40) m/uL Hgb 9.1 L (11.4-16.0) gm/dL Hct 28.8 L (34.0-46.0) % Plt Count 692 H (150-450) k/uL Lymphocytes # 0.7 L (1.0-4.8) k/uL Creatinine 0.5 L (0.6-1.5) mg/dL BUN/Creatinine Ratio 30.00 H (12.00-20.00) Ratio Glucose 136 H (70-110) mg/dL POC Glucose (mg/dL) 113 H (75-99) mg/dL ALT 56 H (8-44) U/L Total Protein 5.5 L (6.2-8.2) g/dL Albumin 2.90 L (3.80-4.90) g/dL Albumin/Globulin Ratio 1.12 L (1.60-3.17) g/dL 11/05/20 11/05/20 Range/Units 07:11 11:50 RBC (3.80-5.40) m/uL Hgb (11.4-16.0) gm/dL Hct (34.0-46.0) % Plt Count (150-450) k/uL Lymphocytes # (1.0-4.8) k/uL Creatinine (0.6-1.5) mg/dL BUN/Creatinine Ratio (12.00-20.00) Ratio Glucose (70-110) mg/dL POC Glucose (mg/dL) 137 H 165 H (75-99) mg/dL ALT (8-44) U/L Total Protein (6.2-8.2) g/dL Albumin (3.80-4.90) g/dL Albumin/Globulin Ratio (1.60-3.17) g/dL
[2020-11-05] MEDS: SODIUM CHLORIDE 0.9% 1,000 ML IV SCH (15:17)
[2020-11-05 16:48] LABS: Glucose,Whole Blood 173 mg/dL (75-99)
--- NOTE | 2020-11-05 18:07 | P.PN ---
Subjective Progress Note Date: 11/05/20 Sofía Leslie is a 74 year-old female patient of Dr Jacob who presented to [facility] ER with a chief complaint of slurred speech, patient has a known history of bipolar disorder, schizophrenia, she is a poor historian her baseline mental status and speech pattern is not clear however caregivers. There is a change from her baseline and she was brought into emergency room to be evaluated for possible stroke. Patient was evaluated in the emergency room her temperature was 97.9 pulse 75 respiration 18 blood pressure 111/55 pulse ox 95% on room air, subsequently dropped to 83% on room air. Her laboratory data was significant for a white blood count of 26.8 sodium of 125 potassium of 6.0 and evidence of elevated AST at 101 and evidence of urinary tract infection. Patient underwent a computed tomography scan of the brain without contrast in the emergency room that revealed age-related atrophic and chronic small vessel disease changes without acute intracranial bleeding she also underwent computed tomography scan of the cervical spine due to recent fall there was no evidence for acute fracture or subluxation of the cervical spine CT angiogram of the brain did not reveal any significant abnormality in the [place] CT angiogram of the neck revealed 80% stenosis on the left internal carotid artery chest x-ray was positive for left upper lobe infiltrate correlate for pneumonia. EKG revealed accelerated junctional rhythm with nonspecific T-wave abnormality. Patient was started on IV antibiotic for UTI and pneumonia. She was started on IV fluid for severe hyponatremia she was admitted to medical floor infectious disease consultation and cardiology consultation were requested. On 10/23/2020 patient was seen and examined on the medical floor she is alert, slightly confused in no apparent distress there is no fever or chills no headache or dizziness no chest pain no shortness of breath no cough no nausea or vomiting no abdominal pain no diarrhea and no urinary symptoms. On 10/24/2020 patient was seen and examined on the medical floor she is alert confused in no apparent distress there is no fever or chills no headache or dizziness no chest pain no shortness of breath no cough no nausea or vomiting no abdominal pain no diarrhea and no urinary symptoms, patient is being treated for pneumonia, urinary tract infection, mental status changes she seems to be related to metabolic encephalopathy related to her infections, case was discussed with neurology today Dr. Robbins no evidence of acute CVA at this point. On 10/25/2020 patient was seen and examined on the medical floor she is alert confused in no distress she is complaining of cough her oxygen saturation is borderline with 2 L of nasal cannula, there is no fever or chills no headache or dizziness no chest pain no shortness of breath no nausea or vomiting no abdominal pain no diarrhea no blood in the stools no burning with urination no frequency or urgency and no hematuria. Liver enzymes are elevated liver ultrasound reveals enlarged common bile duct gastroenterology consultation re quested. On 10/26/2020 patient was seen and examined on the medical floor she is alert and oriented 3 in no apparent distress today she is maintained on oxygen 3 L nasal cannula her pulse ox is 89 at this time will repeat chest x-ray will repeat Covid 19 testing there is no fever or chills no headache or dizziness no chest pain no shortness of breath patient is still having cough no nausea or vo miting no abdominal pain no diarrhea no blood in the stools no burning with urination no frequency or urgency no hematuria On 10/27/2020 patient was seen and examined on the medical floor she is alert and oriented, her condition is worse today she developed worsening shortness of breath was decreased O2 saturation repeat chest x-ray, reveals bilateral infiltrates, her Covid 19 testing on presentation was negative, repeat testing ordered yesterday is still pending, patient will be started on IV Decadron pulmonary consultation was requested yesterday she is also followed by infectious disease On 10/28/2020 patient was seen and examined on the medical floor she is alert and oriented, she developed worsening shortness of breath was decreased O2 saturation repeat chest x-ray, reveals bilateral infiltrates, her Covid 19 testing on presentation was negative, repeat testing ordered yesterday is negative again, patient will be started on IV Decadron pulmonary consultation was requested yesterday she is also followed by infectious disease. she is maintained on antibiotics for possible aspiration pneumonia. On 10/29/2020 patient was seen and examined on the medical floor she is alert and oriented 3 in no apparent distress. She remains on Airvo 40 L, and FiO2 of 74% with a pulse ox of 94%,, she is complaining of cough and shortness of breath otherwise she denies any complaints there is no fever or chills no headache or dizziness no chest pain no nausea or vomiting no abdominal pain no diarrhea no blood in the stools no burning with urination no frequency or urgency and no hematuria pulmonary and infectious disease consultants following On 10/30/2020 patient was seen and examined on the medical floor she is alert and oriented 3 in no apparent distress she is complaining of cough and shortness of breath she is still maintained on high flow oxygen otherwise she denies any complaints there is no fever or chills no headache or dizziness no chest pain no nausea or vomiting no abdominal pain no diarrhea and no urinary symptoms, IV heparin was discontinued patient was started on subcu Lovenox On 10/31/2020 patient was seen and examined on the medical floor she is alert and oriented in no distress she is still complaining of cough and shortness of breath she is maintained on high flow oxygen otherwise she denies any complaints there is no fever or chills no headache or dizziness no chest pain no known nausea or vomiting no abdominal pain no diarrhea no blood in the stools no burning with urination no frequency or urgency and no hematuria patient is followed by pulmonary critical care On 11/01/2020 patient was seen and examined on the medical floor she is alert an d oriented 3 in no distress she is complaining of cough and shortness of breath otherwise no complaints there is no fever or chills no headache or dizziness no chest pain no nausea or vomiting no abdominal pain no diarrhea no blood in the stools no burning with urination no frequency or urgency no hematuria 11/02/2020 patient is alert and oriented 3. Patient still having some cough and shortness of breath but per nursing staff oxygen is weaning down currently on 10 L high flow. White blood cell also improving to 10.7. Liver numbers also trending down. Patient remains on Zosyn and Levaquin On 11/03/2020 patient is alert and oriented 3 resting comfortably in bed. Oxygen status is improving. Patient remains on 10 L. Patient remains on IV Zosyn per infectious disease. On 11/04/2020 patient was seen and examined on the medical floor she is alert confused in no apparent distress she is still complaining of cough and shortness of breath she is still on 10 L of oxygen per minutes otherwise she denies any complaints there is no fever or chills no headache or dizziness no chest pain no nausea or vomiting no abdominal pain no diarrhea and no urinary symptoms On 11/05/2020 patient was seen and examined on the medical floor she is alert and oriented 3 she still has occasional cough she has generalized weakness and requires assistance to stand up and walk she has shortness of breath with activity otherwise she denies any complaints there is no fever or chills no headache or dizziness no chest pain no nausea or vomiting no abdominal pain no diarrhea no blood in the stools no burning with urination no frequency or urgency and no hematuria Objective - Vital Signs Vital signs: Vital Signs Temp 98.0 F 11/05/20 05:00 Pulse 60 11/05/20 05:00 Resp 20 11/05/20 05:00 BP 157/67 11/05/20 05:00 Pulse Ox 91 L 11/05/20 05:00 Intake & Output 11/04/20 11/05/20 11/05/20 18:59 06:59 18:59 Intake Total 440 590 Balance 440 590 Intake: IV 240 Sodium Chloride 0.9% 1, 240 000 ml @ 80 mls/hr IV . [id number] [facility] Rx#:[id number] Intake, IV Titration 200 Amount Piperacillin-Tazobactam 3 200 .375 gm In Sodium Chloride 0.9% 100 ml @ 25 mls/hr IVPB Q8HR [facility] Rx# :[id number] Oral 590 Other: Voiding Method Bedpan Bedpan Diaper Diaper Incontinent Incontinent # Voids 1 - Exam In general patient is alert slightly confused in no apparent distress HEENT head normocephalic and atraumatic Neck is supple no JVD no goiter no lymphadenopathy Chest exam reveals a few scattered rhonchi no wheezing Cardiac exam reveals regular heart sounds S1 and S2 no gallops no murmurs Abdomen is soft nontender no organomegaly with normal bowel sounds Extremity exam reveals no edema no cyanosis or clubbing Neurological examination reveals no gross focal deficit - Labs CBC & Chem 7: 11/05/20 05:29 11/05/20 05:29 Labs: Abnormal Lab Results - Last 24 Hours (Table) 11/04/20 11/04/20 11/04/20 Range/Units 06:26 11:42 16:58 RBC (3.80-5.40) m/uL Hgb (11.4-16.0) gm/dL Hct (34.0-46.0) % Plt Count (150-450) k/uL Lymphocytes # (1.0-4.8) k/uL Sodium 134 L (135-145) mmol/L Carbon Dioxide 33.1 H (21.6-31.8) mmol/L Anion Gap 2.90 L (4.00-12.00) mmol/L Creatinine 0.5 L (0.6-1.5) mg/dL BUN/Creatinine Ratio 26.00 H (12.00-20.00) Ratio Glucose 144 H (70-110) mg/dL POC Glucose (mg/dL) 122 H 113 H (75-99) mg/dL Calcium 8.5 L (8.7-10.3) mg/dL ALT 69 H (8-44) U/L Total Protein 5.5 L (6.2-8.2) g/dL Albumin 2.90 L (3.80-4.90) g/dL Albumin/Globulin Ratio 1.12 L (1.60-3.17) g/dL 11/05/20 11/05/20 Range/Units 05:29 07:11 RBC 3.07 L (3.80-5.40) m/uL Hgb 9.1 L (11.4-16.0) gm/dL Hct 28.8 L (34.0-46.0) % Plt Count 692 H (150-450) k/uL Lymphocytes # 0.7 L (1.0-4.8) k/uL Sodium (135-145) mmol/L Carbon Dioxide (21.6-31.8) mmol/L Anion Gap (4.00-12.00) mmol/L Creatinine (0.6-1.5) mg/dL BUN/Creatinine Ratio (12.00-20.00) Ratio Glucose (70-110) mg/dL POC Glucose (mg/dL) 137 H (75-99) mg/dL Calcium (8.7-10.3) mg/dL ALT (8-44) U/L Total Protein (6.2-8.2) g/dL Albumin (3.80-4.90) g/dL Albumin/Globulin Ratio (1.60-3.17) g/dL Assessment and Plan Plan: 1. Left upper lobe pneumonia. She remains on Levaquin and Zosyn. Infectious disease and pulmonary services are following. 2. Urinary tract infection. Per infectious disease patient has completed treatment is currently maintained on IV antibiotics for pneumonia 3. Hyponatremia. Resolved 4. Hyperkalemia resolved 5. Toxic Metabolic encephalopathy secondary to pneumonia. Patient was evaluated by neurology services. Per neurology services patient was started on aspirin and Plavix recommended 21 day antiplatelet therapy. She has been cleared by neurology services follow up with neurology services 2-3 weeks discharge 6. Elevated liver enzymes with abnormal liver ultrasound showing dilated common bile duct. Patient was evaluated by GI services. Per GI services recommended for nonemergent MRCP upon discharge. Liver numbers have improved DVT prophylaxis Lovenox. GI prophylaxis Pepcid Pulmonary and infectious disease currently following Patient was evaluated by GI and neurology services She remains on Levaquin and Zosyn IV antibiotic
[2020-11-05 20:25] LABS: Glucose,Whole Blood 150 mg/dL (75-99)
[2020-11-05] MEDS: ATORVASTATIN 40 MG TAB PO SCH (22:09)
[2020-11-06] MEDS: methylPREDNISolone SOD SUCCI 125 MG/2 ML VIAL IV SCH ×4 (00:51→18:12)
[2020-11-06] MEDS: PIPERACILLIN-TAZOBACTAM 3.375 GM in SODIUM CHLORIDE 0.9% 100 ML IVPB SCH ×3 (00:51→16:24)
[2020-11-06] MEDS: SODIUM CHLORIDE 0.9% 1,000 ML IV SCH ×2 (05:11→18:27)
[2020-11-06 07:12] LABS: Glucose,Whole Blood 149 mg/dL (75-99)
--- NOTE | 2020-11-06 08:24 | XR ---
EXAMINATION TYPE: XR chest 1V DATE OF EXAM: 11/06/2020 COMPARISON: 11/03/2020 HISTORY: Pneumonia TECHNIQUE: Single frontal view of the chest is obtained. FINDINGS: Diffuse bilateral infiltrate and small effusion stable. Heart size stable. Atherosclerotic change aorta. Diffuse osteopenia and arthropathy shoulders. No pneumothorax. IMPRESSION: Stable diffuse bilateral infiltrate
[2020-11-06] MEDS: TIOTROPIUM 18 MCG/PUFF INHALER INHALATION SCH (08:57)
[2020-11-06] MEDS: ALBUTEROL HFA INHALER INHALATION PRN ×4 (08:57→19:26)
[2020-11-06] MEDS: SYMBICORT 80-4.5 MCG INHALER INHALATION SCH ×2 (08:57→19:26)
[2020-11-06] MEDS: LEVOFLOXACIN 750 MG TAB PO SCH (09:23)
[2020-11-06] MEDS: GABAPENTIN 300 MG CAP PO SCH ×3 (09:23→20:47)
[2020-11-06] MEDS: ASCORBIC ACID 500 MG TAB PO SCH (09:24)
[2020-11-06] MEDS: CLOPIDOGREL 75 MG TAB PO SCH (09:24)
[2020-11-06] MEDS: BACLOFEN 10 MG TAB PO SCH ×2 (09:24→20:47)
[2020-11-06] MEDS: buPROPion SR 150 MG TABLET.ER PO SCH ×2 (09:24→20:47)
[2020-11-06] MEDS: DOCUSATE 100 MG CAP PO SCH ×2 (09:24→20:47)
[2020-11-06] MEDS: FAMOTIDINE 20 MG TAB PO SCH (09:24)
[2020-11-06] MEDS: ASPIRIN 81 MG PO SCH (09:24)
[2020-11-06] MEDS: ENOXAPARIN 40 MG/0.4 ML SYRINGE SQ SCH (09:25)
[2020-11-06] MEDS: guaiFENesin SYRUP 100MG/5ML 200 MG/10 ML CUP PO SCH ×2 (09:25→20:47)
[2020-11-06] MEDS: CHOLECALCIFEROL 400 UNIT TAB PO SCH (09:26)
[2020-11-06] MEDS: risperiDONE 0.5 MG TAB PO SCH ×2 (09:26→20:46)
[2020-11-06] MEDS: ZINC SULFATE 220 MG CAP PO SCH (09:29)
[2020-11-06] MEDS: polyethylene glycoL 3350 17 GM POWD.PACK PO SCH (09:35)
[2020-11-06] MEDS: LEVOTHYROXINE 50 MCG TAB PO SCH (09:35)
[2020-11-06] MEDS: metFORMIN 500 MG TAB PO SCH ×2 (09:35→20:47)
[2020-11-06 11:28] LABS: Albumin/Globulin Ratio 1.15 (1.60-3.17); Anion Gap 6.9 mmol/L (4.00-12.00); Calcium 8.8 mg/dL (8.7-10.3); Carbon Dioxide 30.1 mmol/L (21.6-31.8); Globulin 2.6 g/dL (1.6-3.3); Potassium 4.5 mmol/L (3.5-5.5); Total Bilirubin 0.4 mg/dL (0.3-1.2); Total Protein 5.6 g/dL (6.2-8.2)
[2020-11-06 12:10] LABS: Glucose,Whole Blood 128 mg/dL (75-99)
--- NOTE | 2020-11-06 12:23 | P.PN ---
Subjective Progress Note Date: 11/06/20 Principal diagnosis: Shortness of breath This is a 74-year-old female patient who follows with Dr. Jacob as her primary care provider. She has a history of hypertension, hypothyroidism, diabetes mellitus, chronic obstructive pulmonary disease, severe paranoia and schizophrenia, chronic and ongoing tobacco dependence. She was brought into the emergency room via EMS back on 10/21/2020 for altered mental status upon wakening. She was unable to provide any significant history. She did have slurred speech and possibly suffered a fall. CAT scan revealed age related atrophic and chronic small vessel ischemic changes without acute intracranial process. Urine positive for enterococcal faecalis. Blood culture revealed no growth. Chest x-ray did reveal left lung infiltrate. She had been initiated on Unasyn. Her oxygen requirements continued to worsen and she is currently on the AirVo high flow oxygen device at 30 L and 80% FiO2 to maintain O2 saturation in the low 90s. We're consulted today 10/27/2020 for the same. Chest x-ray reveals significant diffuse left mid to lower lung edema/infiltrate and worsening diffuse right lung edema/infiltrate. An ultrasound of the chest was requested and there was 0 amount of fluid in the right lung and 5.5 cm pocket in the left. Not enough to consider a thoracentesis. CAT scan of the chest revealed cardiomegaly with small bilateral pleural effusions. Background moderate emphysematous changes and scattered fibrotic changes. There are multifocal areas of organizing consolidation bilaterally consistent with CoVID 19 infection. Again, her initial screen was negative. She is seen on the regular medical floor. She is currently sitting up in bed. She is oriented to self only. She no she is in a facility unclear which one. Not sure of the day or the time. Not sure why she is here. White count 9.0. Hemoglobin 9.5. D- dimer 4.16. Sodium 134. Potassium 3.7. Creatinine 0.57. LDH 221. C-reactive protein 11.8. Pro-calcitonin 0.11. She is switched to Zosyn. Repeat CoVID 19 screen pending. on 10/28/2020 patient is seen in follow-up on Gen. medical surgical floor. She remains on high flow oxygen, per Airvo at 40 L/m, and FiO2 of 75%, with a pulse ox of 94%, she is awake and alert, she is quite hard of hearing, she is answering questions appropriate, she is oriented 3, she denies any worsening d yspnea, lung sounds are still positive for some scattered wheezes, she denies any chest pain, occasional cough. Patient has been afebrile, her CTA chest showed suboptimal study with of central pulmonary embolism, cardiomegaly with small bilateral pleural effusions, on a background of moderate emphysematous and to a lesser degree scattered pulmonary fibrotic changes. There are multifocal areas of organizing consolidation with the possibility of Covid 19 infection progression. However patient tested negative on 4 different occasions for coronavirus PCR. And her most recent test on 10/27/2020 also came back negative. She remains on IV Decadron, and Zosyn for possibility of aspiration pneumonia. On 10/29/2020 patient seen in follow-up on medical surgical floor. She remains on Airvo 40 L, and FiO2 of 74% with a pulse ox of 94%, still requiring high flow oxygen, she has a congested cough, but not bringing up any sputum, remains Zosyn for empiric antibiotic coverage, she is on bronchodilators, her mentation has improved, patient is awake and alert, she is answering questions appropriately. She's been afebrile. Denies any chest pain, or hemoptysis, no new chest x-ray, her urine culture came back positive for Enterococcus faecalis, is sensitive to penicillin, blood cultures have shown no growth. ID service is following. On today's evaluation on October patient seen in follow-up on the general medical floor she is calm and comfortable, she is currently on 5 L of oxygen, her pulse ox of 95%, FiO2 was dropped down to 3 L, she denies any cough or congestion, there is no wheezing, no rhonchi today's exam, breathing is comfortable, nonlabored, denies any chest pain, no fever or chills, she remains on a combination of Levaquin and Zosyn, she is on bronchodilators, had no acute events overnight, she is working with physical therapy, requiring oral intake, has no specific complaints Objective - Vital Signs Vital signs: Vital Signs Temp 97.7 F 11/06/20 11:00 Pulse 65 11/06/20 11:00 Resp 19 11/06/20 11:00 BP 161/77 11/06/20 11:00 Pulse Ox 98 11/06/20 11:00 Intake & Output 11/05/20 11/06/20 11/06/20 18:59 06:59 18:59 Intake Total 500 Balance 500 Weight 46 kg Intake: IV 400 Sodium Chloride 0.9% 1, 400 000 ml @ 80 mls/hr IV . [id number] [facility] Rx#:[id number] Intake, IV Titration 100 Amount Piperacillin-Tazobactam 3 100 .375 gm In Sodium Chloride 0.9% 100 ml @ 25 mls/hr IVPB Q8HR [facility] Rx# :[id number] Other: Voiding Method Bedpan Bedpan Bedside Commode Diaper Diaper Diaper Incontinent Incontinent Incontinent # Voids 0 - Exam GENERAL EXAM: Alert, very pleasant, 74-year-old white female quite hard of hearing, on 5 L per high flow nasal cannula sat been 94% comfortable in no apparent distress. HEAD: Normocephalic/atraumatic. EYES: Normal reaction of pupils, equal size. Conjunctiva pink, sclera white. NOSE: Clear with pink turbinates. THROAT: No erythema or exudates. NECK: No masses, no JVD, no thyroid enlargement, no adenopathy. CHEST: No chest wall deformity. Symmetrical expansion. LUNGS: Equal air entry with diffuse wheezes CVS: Regular rate and rhythm, normal S1 and S2, no gallops, no murmurs, no rubs ABDOMEN: Soft, nontender. No hepatosplenomegaly, normal bowel sounds, no guarding or rigidity. EXTREMITIES: No clubbing, no edema, no cyanosis, 2+ pulses and upper and lower extremities. MUSCULOSKELETAL: Muscle strength and tone normal. SPINE: No scoliosis or deformity SKIN: No rashes CENTRAL NERVOUS SYSTEM: Alert and oriented -3. No focal deficits, tone is normal in all 4 extremities. PSYCHIATRIC: Alert and oriented -3. Appropriate affect. Intact judgment and insight. - Labs CBC & Chem 7: 11/05/20 05:29 11/06/20 05:32 Labs: Abnormal Lab Results - Last 24 Hours (Table) 11/05/20 11/05/20 11/06/20 Range/Units 16:37 20:23 05:32 Creatinine 0.5 L (0.6-1.5) mg/dL BUN/Creatinine Ratio 24.00 H (12.00-20.00) Ratio Glucose 132 H (70-110) mg/dL POC Glucose (mg/dL) 173 H 150 H (75-99) mg/dL ALT 49 H (8-44) U/L Total Protein 5.6 L (6.2-8.2) g/dL Albumin 3.00 L (3.80-4.90) g/dL Albumin/Globulin Ratio 1.15 L (1.60-3.17) g/dL 11/06/20 11/06/20 Range/Units 07:10 11:56 Creatinine (0.6-1.5) mg/dL BUN/Creatinine Ratio (12.00-20.00) Ratio Glucose (70-110) mg/dL POC Glucose (mg/dL) 149 H 128 H (75-99) mg/dL ALT (8-44) U/L Total Protein (6.2-8.2) g/dL Albumin (3.80-4.90) g/dL Albumin/Globulin Ratio (1.60-3.17) g/dL Assessment and Plan Plan: Assessment: #1. Acute hypoxic respiratory failure secondary to suspected aspiration pneumonia, COVID 19 pneumonia has been ruled out #2. Altered mental status, likely related to metabolic encephalopathy related to pneumonia and urinary tract infection, improved #3. Acute exacerbation of chronic obstructive pulmonary disease #4. Chronic and ongoing tobacco dependence #5. History of bipolar disorder and severe paranoia #6. History of congestive heart failure, with unknown EF #7. History of valvular heart disease #8. History of hypothyroidism #9. Diabetes poultice type II #10. Hypertension #11. Acute urinary tract infection related to Enterococcus faecalis Plan: Patient continues to improve, continue weaning FiO2, today's chest x-ray shows improvement in the appearance of bilateral multifocal pneumonia, no fever or chills, continue current antibiotics, increase activity as tolerated, maintain aspiration precautions, from pulmonary perspective patient can be considered for discharge home in the next 24-48 hours with antibiotics of ID service recommendations. I performed a history & physical examination of the patient and discussed their management with my nurse practitioner, Johanna Brantley. I reviewed the nurse practitioner's note and agree with the documented findings and plan of care. Lung sounds are positive for bibasilar crackles. The findings and the impression was discussed with the patient. I attest to the documentation by the nurse practitioner. Time with Patient: Less than 30
[2020-11-06 17:18] LABS: Glucose,Whole Blood 149 mg/dL (75-99)
--- NOTE | 2020-11-06 17:59 | P.PN ---
Subjective Progress Note Date: 11/06/20 Sofía Leslie is a 74 year-old female patient of Dr Jacob who presented to [facility] ER with a chief complaint of slurred speech, patient has a known history of bipolar disorder, schizophrenia, she is a poor historian her baseline mental status and speech pattern is not clear however caregivers. There is a change from her baseline and she was brought into emergency room to be evaluated for possible stroke. Patient was evaluated in the emergency room her temperature was 97.9 pulse 75 respiration 18 blood pressure 111/55 pulse ox 95% on room air, subsequently dropped to 83% on room air. Her laboratory data was significant for a white blood count of 26.8 sodium of 125 potassium of 6.0 and evidence of elevated AST at 101 and evidence of urinary tract infection. Patient underwent a computed tomography scan of the brain without contrast in the emergency room that revealed age-related atrophic and chronic small vessel disease changes without acute intracranial bleeding she also underwent computed tomography scan of the cervical spine due to recent fall there was no evidence for acute fracture or subluxation of the cervical spine CT angiogram of the brain did not reveal any significant abnormality in the [place] CT angiogram of the neck revealed 80% stenosis on the left internal carotid artery chest x-ray was positive for left upper lobe infiltrate correlate for pneumonia. EKG revealed accelerated junctional rhythm with nonspecific T-wave abnormality. Patient was started on IV antibiotic for UTI and pneumonia. She was started on IV fluid for severe hyponatremia she was admitted to medical floor infectious disease consultation and cardiology consultation were requested. On 10/23/2020 patient was seen and examined on the medical floor she is alert, slightly confused in no apparent distress there is no fever or chills no headache or dizziness no chest pain no shortness of breath no cough no nausea or vomiting no abdominal pain no diarrhea and no urinary symptoms. On 10/24/2020 patient was seen and examined on the medical floor she is alert confused in no apparent distress there is no fever or chills no headache or dizziness no chest pain no shortness of breath no cough no nausea or vomiting no abdominal pain no diarrhea and no urinary symptoms, patient is being treated for pneumonia, urinary tract infection, mental status changes she seems to be related to metabolic encephalopathy related to her infections, case was discussed with neurology today Dr. Robbins no evidence of acute CVA at this point. On 10/25/2020 patient was seen and examined on the medical floor she is alert confused in no distress she is complaining of cough her oxygen saturation is borderline with 2 L of nasal cannula, there is no fever or chills no headache or dizziness no chest pain no shortness of breath no nausea or vomiting no abdominal pain no diarrhea no blood in the stools no burning with urination no frequency or urgency and no hematuria. Liver enzymes are elevated liver ultrasound reveals enlarged common bile duct gastroenterology consultation re quested. On 10/26/2020 patient was seen and examined on the medical floor she is alert and oriented 3 in no apparent distress today she is maintained on oxygen 3 L nasal cannula her pulse ox is 89 at this time will repeat chest x-ray will repeat Covid 19 testing there is no fever or chills no headache or dizziness no chest pain no shortness of breath patient is still having cough no nausea or vo miting no abdominal pain no diarrhea no blood in the stools no burning with urination no frequency or urgency no hematuria On 10/27/2020 patient was seen and examined on the medical floor she is alert and oriented, her condition is worse today she developed worsening shortness of breath was decreased O2 saturation repeat chest x-ray, reveals bilateral infiltrates, her Covid 19 testing on presentation was negative, repeat testing ordered yesterday is still pending, patient will be started on IV Decadron pulmonary consultation was requested yesterday she is also followed by infectious disease On 10/28/2020 patient was seen and examined on the medical floor she is alert and oriented, she developed worsening shortness of breath was decreased O2 saturation repeat chest x-ray, reveals bilateral infiltrates, her Covid 19 testing on presentation was negative, repeat testing ordered yesterday is negative again, patient will be started on IV Decadron pulmonary consultation was requested yesterday she is also followed by infectious disease. she is maintained on antibiotics for possible aspiration pneumonia. On 10/29/2020 patient was seen and examined on the medical floor she is alert and oriented 3 in no apparent distress. She remains on Airvo 40 L, and FiO2 of 74% with a pulse ox of 94%,, she is complaining of cough and shortness of breath otherwise she denies any complaints there is no fever or chills no headache or dizziness no chest pain no nausea or vomiting no abdominal pain no diarrhea no blood in the stools no burning with urination no frequency or urgency and no hematuria pulmonary and infectious disease consultants following On 10/30/2020 patient was seen and examined on the medical floor she is alert and oriented 3 in no apparent distress she is complaining of cough and shortness of breath she is still maintained on high flow oxygen otherwise she denies any complaints there is no fever or chills no headache or dizziness no chest pain no nausea or vomiting no abdominal pain no diarrhea and no urinary symptoms, IV heparin was discontinued patient was started on subcu Lovenox On 10/31/2020 patient was seen and examined on the medical floor she is alert and oriented in no distress she is still complaining of cough and shortness of breath she is maintained on high flow oxygen otherwise she denies any complaints there is no fever or chills no headache or dizziness no chest pain no known nausea or vomiting no abdominal pain no diarrhea no blood in the stools no burning with urination no frequency or urgency and no hematuria patient is followed by pulmonary critical care On 11/01/2020 patient was seen and examined on the medical floor she is alert an d oriented 3 in no distress she is complaining of cough and shortness of breath otherwise no complaints there is no fever or chills no headache or dizziness no chest pain no nausea or vomiting no abdominal pain no diarrhea no blood in the stools no burning with urination no frequency or urgency no hematuria 11/02/2020 patient is alert and oriented 3. Patient still having some cough and shortness of breath but per nursing staff oxygen is weaning down currently on 10 L high flow. White blood cell also improving to 10.7. Liver numbers also trending down. Patient remains on Zosyn and Levaquin On 11/03/2020 patient is alert and oriented 3 resting comfortably in bed. Oxygen status is improving. Patient remains on 10 L. Patient remains on IV Zosyn per infectious disease. On 11/04/2020 patient was seen and examined on the medical floor she is alert confused in no apparent distress she is still complaining of cough and shortness of breath she is still on 10 L of oxygen per minutes otherwise she denies any complaints there is no fever or chills no headache or dizziness no chest pain no nausea or vomiting no abdominal pain no diarrhea and no urinary symptoms On 11/05/2020 patient was seen and examined on the medical floor she is alert and oriented 3 she still has occasional cough she has generalized weakness and requires assistance to stand up and walk she has shortness of breath with activity otherwise she denies any complaints there is no fever or chills no headache or dizziness no chest pain no nausea or vomiting no abdominal pain no diarrhea no blood in the stools no burning with urination no frequency or urgency and no hematuria On 11/06/2020 patient was seen and examined on the medical floor she is alert and oriented in no distress she still has cough and shortness of breath with any activity she is still having generalized weakness and requires assistance to ambulate, otherwise she denies any complaints there is no fever or chills no headache or dizziness no chest pain no nausea or vomiting no abdominal pain no diarrhea no blood in the stools no burning with urination no frequency or urgency and no hematuria. Today vitals and labs were reviewed input from pulmonary was reviewed possible discharge to home tomorrow. Objective - Vital Signs Vital signs: Vital Signs Temp 97.6 F 11/06/20 16:48 Pulse 69 11/06/20 16:48 Resp 19 11/06/20 16:48 BP 149/66 11/06/20 16:48 Pulse Ox 96 11/06/20 16:48 Intake & Output 11/05/20 11/06/20 11/06/20 18:59 06:59 18:59 Intake Total 500 Balance 500 Weight 46 kg Intake: IV 400 Sodium Chloride 0.9% 1, 400 000 ml @ 80 mls/hr IV . [id number] [facility] Rx#:[id number] Intake, IV Titration 100 Amount Piperacillin-Tazobactam 3 100 .375 gm In Sodium Chloride 0.9% 100 ml @ 25 mls/hr IVPB Q8HR [facility] Rx# :[id number] Other: Voiding Method Bedpan Bedpan Bedside Commode Diaper Diaper Diaper Incontinent Incontinent Incontinent # Voids 0 2 # Bowel Movements 2 - Exam In general patient is alert slightly confused in no apparent distress HEENT head normocephalic and atraumatic Neck is supple no JVD no goiter no lymphadenopathy Chest exam reveals a few scattered rhonchi no wheezing Cardiac exam reveals regular heart sounds S1 and S2 no gallops no murmurs Abdomen is soft nontender no organomegaly with normal bowel sounds Extremity exam reveals no edema no cyanosis or clubbing Neurological examination reveals no gross focal deficit - Labs CBC & Chem 7: 11/05/20 05:29 11/06/20 05:32 Labs: Abnormal Lab Results - Last 24 Hours (Table) 11/05/20 11/06/20 11/06/20 Range/Units 20:23 05:32 07:10 Creatinine 0.5 L (0.6-1.5) mg/dL BUN/Creatinine Ratio 24.00 H (12.00-20.00) Ratio Glucose 132 H (70-110) mg/dL POC Glucose (mg/dL) 150 H 149 H (75-99) mg/dL ALT 49 H (8-44) U/L Total Protein 5.6 L (6.2-8.2) g/dL Albumin 3.00 L (3.80-4.90) g/dL Albumin/Globulin Ratio 1.15 L (1.60-3.17) g/dL 11/06/20 11/06/20 Range/Units 11:56 17:00 Creatinine (0.6-1.5) mg/dL BUN/Creatinine Ratio (12.00-20.00) Ratio Glucose (70-110) mg/dL POC Glucose (mg/dL) 128 H 149 H (75-99) mg/dL ALT (8-44) U/L Total Protein (6.2-8.2) g/dL Albumin (3.80-4.90) g/dL Albumin/Globulin Ratio (1.60-3.17) g/dL Assessment and Plan Plan: 1. Left upper lobe pneumonia. She remains on Levaquin and Zosyn. Infectious disease and pulmonary services are following. 2. Urinary tract infection. Per infectious disease patient has completed treatment is currently maintained on IV antibiotics for pneumonia 3. Hyponatremia. Resolved 4. Hyperkalemia resolved 5. Toxic Metabolic encephalopathy secondary to pneumonia. Patient was evaluated by neurology services. Per neurology services patient was started on aspirin and Plavix recommended 21 day antiplatelet therapy. She has been cleared by neurology services follow up with neurology services 2-3 weeks discharge 6. Elevated liver enzymes with abnormal liver ultrasound showing dilated common bile duct. Patient was evaluated by GI services. Per GI services recommended for nonemergent MRCP upon discharge. Liver numbers have improved DVT prophylaxis Lovenox. GI prophylaxis Pepcid Pulmonary and infectious disease currently following Patient was evaluated by GI and neurology services She remains on Levaquin and Zosyn IV antibiotic
[2020-11-06 20:02] LABS: Glucose,Whole Blood 137 mg/dL (75-99)
[2020-11-06] MEDS: ATORVASTATIN 40 MG TAB PO SCH (20:47)
[2020-11-07] MEDS: methylPREDNISolone SOD SUCCI 125 MG/2 ML VIAL IV SCH ×4 (00:21→17:05)
[2020-11-07] MEDS: PIPERACILLIN-TAZOBACTAM 3.375 GM in SODIUM CHLORIDE 0.9% 100 ML IVPB SCH ×3 (00:22→16:18)
--- NOTE | 2020-11-07 00:26 | PN ---
PROGRESS NOTE DATE OF SERVICE: 11/06/2020 REASON FOR FOLLOWUP: Pneumonia and UTI. INTERVAL HISTORY: The patient is currently afebrile. Patient is breathing more comfortably. Patient denies any chest pain. She did have a cough, not bringing any sputum. No nausea. No vomiting or diarrhea. PHYSICAL EXAMINATION: Blood pressure 174/75 with a pulse of 75, temperature 98. She is 98% on 3 L nasal cannula. General description is an elderly female up in the bed in no distress. Respiratory system: Unlabored breathing. Coarse breath sounds in the bases, no wheeze. Heart S1, S2. Regular rate and rhythm. Abdomen soft, no tenderness. LABS: BUN of 20, creatinine 0.5. The patient did have a chest x-ray, stable diffuse bilateral infiltrate. DIAGNOSTIC IMPRESSION AND PLAN: Patient with pneumonia, question of aspiration or antiviral in this patient currently on oral Levaquin and Zosyn to continue along with steroids and bronchodilator and monitor clinical course closely. MMODL / IJN: [id number] /
[2020-11-07] MEDS: SODIUM CHLORIDE 0.9% 1,000 ML IV SCH ×2 (05:46→16:19)
[2020-11-07 07:11] LABS: Glucose,Whole Blood 136 mg/dL (75-99)
[2020-11-07] MEDS: ENOXAPARIN 40 MG/0.4 ML SYRINGE SQ SCH (07:43)
[2020-11-07] MEDS: polyethylene glycoL 3350 17 GM POWD.PACK PO SCH (07:44)
[2020-11-07] MEDS: metFORMIN 500 MG TAB PO SCH (07:45)
[2020-11-07] MEDS: LEVOFLOXACIN 750 MG TAB PO SCH (07:48)
[2020-11-07] MEDS: risperiDONE 0.5 MG TAB PO SCH (07:48)
[2020-11-07] MEDS: buPROPion SR 150 MG TABLET.ER PO SCH (07:48)
[2020-11-07] MEDS: GABAPENTIN 300 MG CAP PO SCH ×2 (07:48→13:20)
[2020-11-07] MEDS: DOCUSATE 100 MG CAP PO SCH (07:48)
[2020-11-07] MEDS: BACLOFEN 10 MG TAB PO SCH (07:48)
[2020-11-07] MEDS: FAMOTIDINE 20 MG TAB PO SCH (07:48)
[2020-11-07] MEDS: ZINC SULFATE 220 MG CAP PO SCH (07:49)
[2020-11-07] MEDS: LEVOTHYROXINE 50 MCG TAB PO SCH (07:49)
[2020-11-07] MEDS: guaiFENesin SYRUP 100MG/5ML 200 MG/10 ML CUP PO SCH (07:49)
[2020-11-07] MEDS: CHOLECALCIFEROL 400 UNIT TAB PO SCH (07:49)
[2020-11-07] MEDS: ASCORBIC ACID 500 MG TAB PO SCH (07:49)
[2020-11-07] MEDS: ASPIRIN 81 MG PO SCH (07:49)
[2020-11-07] MEDS: CLOPIDOGREL 75 MG TAB PO SCH (07:49)
[2020-11-07] MEDS: SYMBICORT 80-4.5 MCG INHALER INHALATION SCH (08:19)
[2020-11-07] MEDS: TIOTROPIUM 18 MCG/PUFF INHALER INHALATION SCH (08:19)
[2020-11-07] MEDS: ALBUTEROL HFA INHALER INHALATION PRN ×3 (08:19→17:11)
--- NOTE | 2020-11-07 11:13 | CDI ---
Documentation Clarification Form Date: 11/07/2020 10:38:00 AM From: Lisa Hansen RN, CCDS Admit Date: 10/21/2020 12:51:00 PM Patient Name: Sofía Leslie Visit Number: [id number] Discharge Date: ATTENTION: The Clinical Documentation Specialists (CDI) and [facility] Coding Staff appreciate your assistance in clarifying documentation. Please respond to the clarification below the line at the bottom and electronically sign. The CDI & [facility] Coding staff will review the response and follow-up if needed. Please note: Queries are made part of the Legal Health Record. If you have any questions, please contact the author of this message via ITS. Dr. Agnieszka Sanchez Physical examination by ID: This is a thin cachetic appearing 75-year-old has been documented in the progress note on 11/05. Please provide further specificity of what this may indicate. History/Risk Factors: Bipolar disorder, COPD, Diabetes mellitus, Hypertension, Current every day smoker Clinical Indicators: 75-year-old female present on 10/21 confusion. She had suffered a fall and has a small hematoma over the occiput. She had slurred speech, baseline was not known. She is undergoing treatment for possible aspiration, pneumonia, UTI. 10/21 Vital signs on admission: 111/55 75 18 95 % 10/21 Labs: WBC 26.8, NA+ 125, K+ 6.0 Total protein 7.2, Albumin 3.3, UA: Large Leukocyte Esterase / Total Protein 5,.6, Albumin 3.0 Albumin/Globulin Ratio 1.15 (range 1.60- 3.17) Current BMI: 16.4 Insufficient energy intake: Yes per nutritional consult: decreased appetite/intake due to PNA/UTI Documented intake<50 % EER Treatment: Dietary Consult: Yes, BMI index: Underweight Supplements: Ensure Enlive BID, Monitor PO intake, supplement intake In your professional opinion, can you please clarify if these findings signify one of the following conditions? Mild Protein-Calorie Malnutrition Moderate Protein-Calorie Malnutrition Severe Protein-Calorie Malnutrition Other condition, please specify _ Unable to determine (Last Revision: May 2019) moderate protein calorie malnutrition MTDD
[2020-11-07 11:30] LABS: Glucose,Whole Blood 116 mg/dL (75-99)
[2020-11-07 12:04] VITALS: RESP 17
--- NOTE | 2020-11-07 14:22 | P.PN ---
Subjective Progress Note Date: 11/07/20 HISTORY OF PRESENT ILLNESS This is a 75-year-old female admitted to the hospital and treated for possible aspiration pneumonia, gram-negative pneumonia. Patient has been covered with Zosyn and Levaquin transitioned to oral. Patient complains of cough that is productive. Nurse relates the patient has had problems with hallucinations. Patient denies having any chest pain. Patient has been a febrile, heart rate 70, blood pressure 146/60, pulse ox 90% on high flow nasal cannula with FiO2 of 80, flow rate 35. Repeat blood work reveals WBC 12.3, hemoglobin 8.9, platelet count 578. Electrolytes and renal function normal. Blood sugar 189. AST 85, ALT 178. 11/07: Patient denies having cough, shortness of breath, chest pain. She denies any abdominal symptoms including pain, nausea or vomiting. No diarrhea. She has been afebrile, heart rate 73, blood pressure 164/73, pulse ox 92% on 3 L nasal cannula. PHYSICAL EXAMINATION Gen: This is a thin cachectic appearing 75-year-old female. HEENT: Head is atraumatic, normocephalic. Pupils equal, round. Sclerae is anicteric. LUNGS: Decreased breath sounds bilaterally and clear to auscultation. No intercostal retractions. No accessory muscle usage. HEART: Regular rate and rhythm. No murmur. ABDOMEN: Soft. Bowel sounds are present. No masses. No tenderness. EXTREMITIES: No pedal edema. No calf tenderness. NEUROLOGICAL: Patient is awake, alert. ASSESSMENT Acute aspiration pneumonia COVID-19 ruled out on 4 different specimens Metabolic encephalopathy secondary to pneumonia Acute exacerbation of COPD Tobacco use and dependence Acute urinary tract infection, completed treatment PLAN Continue Levaquin 750 mg oral daily for 5 more days outpatient. Prescription has been sent to her pharmacy. Patient is cleared for discharge from infectious disease once oxygen was titrated to a reasonable amount for discharge. The above dictated assessment and findings were discussed with Dr. Jarrell. The impression and plan of care have been directed as dictated. Jessica Currie nurse practitioner acting as scribe for Dr. Jarrell. Objective - Vital Signs Vital signs: Vital Signs Temp 97.7 F 11/07/20 11:00 Pulse 73 11/07/20 11:00 Resp 17 11/07/20 11:00 BP 164/73 11/07/20 11:00 Pulse Ox 92 L 11/07/20 11:00 Intake & Output 11/06/20 11/07/20 11/07/20 18:59 06:59 18:59 Other: Voiding Method Bedside Commode Bedside Commode Bedside Commode Diaper Diaper Diaper Incontinent Incontinent Incontinent # Voids 2 5 # Bowel Movements 2 0 - Labs CBC & Chem 7: 11/05/20 05:29 11/06/20 05:32 Labs: Abnormal Lab Results - Last 24 Hours (Table) 11/06/20 11/06/20 11/07/20 Range/Units 17:00 20:01 07:10 POC Glucose (mg/dL) 149 H 137 H 136 H (75-99) mg/dL 11/07/20 Range/Units 11:28 POC Glucose (mg/dL) 116 H (75-99) mg/dL
--- NOTE | 2020-11-07 15:09 | P.PN ---
Subjective Progress Note Date: 11/07/20 74-year-old female patient with multiple medical problems and comorbidities with acute hypoxic respiratory failure. The patient is currently on 10 L of oxygen by nasal cannula and she was treated for aspiration pneumonia. COVID 19 infection was ruled out. The patient has hypertension, hypothyroidism and diabetes mellitus and COPD. The patient has severe paranoia and schizophrenia. She is a chronic cigarette smoker. She has been in the hospital for quite some time treated with high flow oxygen and a combination of antibiotics. Chest x- ray from yesterday from 11/03/2020 showed diffuse interstitial infiltrates along with some airspace disease in the upper lobes and left lung base. There was s ome partial improvement in the right upper lobe area. The patient remains on Symbicort, albuterol HFA, Levaquin 750 mg by mouth daily and IV Zosyn. and Lovenox for DVT prophylaxis dose of 40 mg subcu daily. On 11/07/2020, the patient is being seen for a follow-up. She remains on the same antibiotic coverage. She feels good. No specific complaints. She was taken off the oxygen and she is currently on room air oxygen. Chest x-ray from yesterday was improving and the patient was showing improvement in her oxygenation. She is down to 3 L of oxygen by nasal cannula and she has home oxygen. The patient is feeling better. She wants to go home. Case was discussed with her primary care physician. Objective - Vital Signs Vital signs: Vital Signs Temp 97.7 F 11/07/20 11:00 Pulse 73 11/07/20 11:00 Resp 17 11/07/20 11:00 BP 164/73 11/07/20 11:00 Pulse Ox 92 L 11/07/20 11:00 Intake & Output 11/06/20 11/07/20 11/07/20 18:59 06:59 18:59 Other: Voiding Method Bedside Commode Bedside Commode Bedside Commode Diaper Diaper Diaper Incontinent Incontinent Incontinent # Voids 2 5 # Bowel Movements 2 0 - Exam GENERAL EXAM: Alert, restless, on 3 L high flow nasal cannula, comfortable in no apparent distress. HEAD: Normocephalic. EYES: Normal reaction of pupils, equal size. NOSE: Clear with pink turbinates. THROAT: No erythema or exudates. NECK: No masses, no JVD. CHEST: No chest wall deformity. LUNGS: Equal air entry with bilateral scattered rhonchi, diminished CVS: S1 and S2 normal with no audible murmur, regular rhythm. ABDOMEN: No hepatosplenomegaly, normal bowel sounds, no guarding or rigidity. SPINE: No scoliosis or deformity SKIN: No rashes CENTRAL NERVOUS SYSTEM: No focal deficits, tone is normal in all 4 extremities. EXTREMITIES: There is no peripheral edema. No clubbing, no cyanosis. Peripheral pulses are intact. - Labs CBC & Chem 7: 11/05/20 05:29 11/06/20 05:32 Labs: Abnormal Lab Results - Last 24 Hours (Table) 11/06/20 11/06/20 11/07/20 Range/Units 17:00 20:01 07:10 POC Glucose (mg/dL) 149 H 137 H 136 H (75-99) mg/dL 11/07/20 Range/Units 11:28 POC Glucose (mg/dL) 116 H (75-99) mg/dL Assessment and Plan Plan: 1 Acute hypoxic respiratory failure secondary to suspected aspiration pneumonia, CoVID 19 ruled out 4, consider also post aspiration acute lung injury/ARDS. The patient is currently completing a course of Levaquin and Zosyn. Patient continued to improve. Her chest x-ray was improving and she was down to 3 L of oxygen by nasal cannula. Raises are being made for this patient to be discharged home. 2 Altered mental status suspect secondary to above, improved 3 Acute exacerbation of chronic obstructive pulmonary disease, improved 4 Chronic and ongoing tobacco dependence 5 Severe paranoia and bipolar disorder 6 history of congestive heart failure 7 History of valvular heart disease 8 Hypothyroidism 9 Diabetes mellitus 10 Hypertension Plan: She has been slow to progress, had oxidation is improved. Repeat chest x-ray was improving. On room air oxygen and his pulse ox is around 85%. As such, she is still going to be somewhat between 2 or 3 L of oxygen by nasal cannula. The choice of antibiotics per ID at a time of discharge.
--- NOTE | 2020-11-07 16:02 | P.DS ---
Providers Date of admission: 10/21/20 12:51 Expected date of discharge: 11/07/20 Attending physician: Agnieszka Sanchez Consults: 10/21/20 12:50 Consult Physician Routine Consulting Provider: Arnaldo Robbins Consult Reason/Comments: altered mental status Do you want consulting provider notified?: Yes 10/22/20 09:58 Consult Physician Routine Consulting Provider: Trena Jarrell Consult Reason/Comments: UTI, Pneumonia Do you want consulting provider notified?: Yes 10/27/20 06:31 Consult Physician Routine Consulting Provider: Edvin Zepeda Consult Reason/Comments: pneumonia, low pulse ox Do you want consulting provider notified?: Yes, Notify in am Primary care physician: Aby Jacob Hospital Course: Diagnoses on discharge: 1. Left upper lobe pneumonia. She remains on Levaquin and Zosyn. Infectious disease and pulmonary services are following. 2. Urinary tract infection. Per infectious disease patient has completed treatment is currently maintained on IV antibiotics for pneumonia 3. Hyponatremia. Resolved 4. Hyperkalemia resolved 5. Toxic Metabolic encephalopathy secondary to pneumonia. Patient was evaluated by neurology services. Per neurology services patient was started on aspirin and Plavix recommended 21 day antiplatelet therapy. She has been cleared by neurology services follow up with neurology services 2-3 weeks discharge 6. Elevated liver enzymes with abnormal liver ultrasound showing dilated common bile duct. Patient was evaluated by GI services. Per GI services recommended for nonemergent MRCP upon discharge. Liver numbers have improved Hospital course: Sofía Leslie is a 74 year-old female patient of Dr Jacob who presented to [facility] ER with a chief complaint of slurred speech, patient has a known history of bipolar disorder, schizophrenia, she is a poor historian her baseline mental status and speech pattern is not clear however caregivers. There is a change from her baseline and she was brought into emergency room to be evaluated for possible stroke. Patient was evaluated in the emergency room her temperature was 97.9 pulse 75 respiration 18 blood pressure 111/55 pulse ox 95% on room air, subsequently dropped to 83% on room air. Her laboratory data was significant for a white blood count of 26.8 sodium of 125 potassium of 6.0 and evidence of elevated AST at 101 and evidence of urinary tract infection. Patient underwent a computed tomography scan of the brain without contrast in the emergency room that revealed age-related atrophic and chronic small vessel disease changes without acute intracranial bleeding she also underwent computed tomography scan of the cervical spine due to recent fall there was no evidence for acute fracture or subluxation of the cervical spine CT angiogram of the brain did not reveal any significant abnormality in the pitka's point of [place]uk[place] CT angiogram of the neck revealed 80% stenosis on the left internal carotid artery chest x-ray was positive for left upper lobe infiltrate correlate for pneumonia. EKG revealed accelerated junctional rhythm with nonspecific T-wave abnormality. Patient was started on IV antibiotic for UTI and pneumonia. She was started on IV fluid for severe hyponatremia she was admitted to medical floor infectious disease consultation and cardiology consultation were requested. On 10/23/2020 patient was seen and examined on the medical floor she is alert, slightly confused in no apparent distress there is no fever or chills no headache or dizziness no chest pain no shortness of breath no cough no nausea or vomiting no abdominal pain no diarrhea and no urinary symptoms. On 10/24/2020 patient was seen and examined on the medical floor she is alert confused in no apparent distress there is no fever or chills no headache or dizziness no chest pain no shortness of breath no cough no nausea or vomiting no abdominal pain no diarrhea and no urinary symptoms, patient is being treated for pneumonia, urinary tract infection, mental status changes she seems to be related to metabolic encephalopathy related to her infections, case was discussed with neurology today Dr. Robbins no evidence of acute CVA at this point. On 10/25/2020 patient was seen and examined on the medical floor she is alert confused in no distress she is complaining of cough her oxygen saturation is borderline with 2 L of nasal cannula, there is no fever or chills no headache or dizziness no chest pain no shortness of breath no nausea or vomiting no abdominal pain no diarrhea no blood in the stools no burning with urination no frequency or urgency and no hematuria. Liver enzymes are elevated liver ultrasound reveals enlarged common bile duct gastroenterology consultation requested. On 10/26/2020 patient was seen and examined on the medical floor she is alert and oriented 3 in no apparent distress today she is maintained on oxygen 3 L nasal cannula her pulse ox is 89 at this time will repeat chest x-ray will repeat Covid 19 testing there is no fever or chills no headache or dizziness no chest pain no shortness of breath patient is still having cough no nausea or vomiting no abdominal pain no diarrhea no blood in the stools no burning with urination no frequency or urgency no hematuria On 10/27/2020 patient was seen and examined on the medical floor she is alert and oriented, her condition is worse today she developed worsening shortness of breath was decreased O2 saturation repeat chest x-ray, reveals bilateral infiltrates, her Covid 19 testing on presentation was negative, repeat testing ordered yesterday is still pending, patient will be started on IV Decadron pulmonary consultation was requested yesterday she is also followed by infectious disease On 10/28/2020 patient was seen and examined on the medical floor she is alert and oriented, she developed worsening shortness of breath was decreased O2 saturation repeat chest x-ray, reveals bilateral infiltrates, her Covid 19 testing on presentation was negative, repeat testing ordered yesterday is negative again, patient will be started on IV Decadron pulmonary consultation was requested yesterday she is also followed by infectious disease. she is maintained on antibiotics for possible aspiration pneumonia. On 10/29/2020 patient was seen and examined on the medical floor she is alert and oriented 3 in no apparent distress. She remains on Airvo 40 L, and FiO2 of 74% with a pulse ox of 94%,, she is complaining of cough and shortness of breath otherwise she denies any complaints there is no fever or chills no headache or dizziness no chest pain no nausea or vomiting no abdominal pain no diarrhea no blood in the stools no burning with urination no frequency or urgency and no hematuria pulmonary and infectious disease consultants following On 10/30/2020 patient was seen and examined on the medical floor she is alert and oriented 3 in no apparent distress she is complaining of cough and shortness of breath she is still maintained on high flow oxygen otherwise she denies any complaints there is no fever or chills no headache or dizziness no chest pain no nausea or vomiting no abdominal pain no diarrhea and no urinary symptoms, IV heparin was discontinued patient was started on subcu Lovenox On 10/31/2020 patient was seen and examined on the medical floor she is alert and oriented in no distress she is still complaining of cough and shortness of breath she is maintained on high flow oxygen otherwise she denies any complaints there is no fever or chills no headache or dizziness no chest pain no known nausea or vomiting no abdominal pain no diarrhea no blood in the stools no burning with urination no frequency or urgency and no hematuria patient is followed by pulmonary critical care On 11/01/2020 patient was seen and examined on the medical floor she is alert and oriented 3 in no distress she is complaining of cough and shortness of breath otherwise no complaints there is no fever or chills no headache or dizziness no chest pain no nausea or vomiting no abdominal pain no diarrhea no blood in the stools no burning with urination no frequency or urgency no hematuria 11/02/2020 patient is alert and oriented 3. Patient still having some cough and shortness of breath but per nursing staff oxygen is weaning down currently on 10 L high flow. White blood cell also improving to 10.7. Liver numbers also trending down. Patient remains on Zosyn and Levaquin On 11/03/2020 patient is alert and oriented 3 resting comfortably in bed. Oxygen status is improving. Patient remains on 10 L. Patient remains on IV Zosyn per infectious disease. On 11/04/2020 patient was seen and examined on the medical floor she is alert confused in no apparent distress she is still complaining of cough and shortness of breath she is still on 10 L of oxygen per minutes otherwise she denies any complaints there is no fever or chills no headache or dizziness no chest pain no nausea or vomiting no abdominal pain no diarrhea and no urinary symptoms On 11/05/2020 patient was seen and examined on the medical floor she is alert and oriented 3 she still has occasional cough she has generalized weakness and requires assistance to stand up and walk she has shortness of breath with activity otherwise she denies any complaints there is no fever or chills no headache or dizziness no chest pain no nausea or vomiting no abdominal pain no diarrhea no blood in the stools no burning with urination no frequency or urgency and no hematuria On 11/06/2020 patient was seen and examined on the medical floor she is alert and oriented in no distress she still has cough and shortness of breath with any activity she is still having generalized weakness and requires assistance to ambulate, otherwise she denies any complaints there is no fever or chills no headache or dizziness no chest pain no nausea or vomiting no abdominal pain no diarrhea no blood in the stools no burning with urination no frequency or urgency and no hematuria. Today vitals and labs were reviewed input from pulmonary was reviewed possible discharge to home tomorrow. Patient will need to follow-up with gastroenterology as outpatient for MRCP Patient Condition at Discharge: Fair Plan - Discharge Summary Discharge Rx Participant: No New Discharge Prescriptions: New Benzocaine/Menthol Lozeng [Cepacol lozenge] 1 each MUCOUS MEM Q2HR PRN lozenge PRN Reason: Sore Throat Furosemide [Lasix] 20 mg PO DAILY PRN tab PRN Reason: LEG SWELLING Levofloxacin [Levaquin] 750 mg PO DAILY 5 Days #5 tab HYDROcodone/APAP 5-325MG [[place] 5-325] 1 each PO Q4HR PRN tab PRN Reason: Pain Zinc Sulfate [Orazinc] 220 mg PO DAILY cap Clopidogrel [Plavix] 75 mg PO DAILY tab Benzonatate [Tessalon Perles] 100 mg PO TID PRN cap PRN Reason: Cough Ascorbic Acid [Vitamin C] 500 mg PO DAILY tab Cholecalciferol [Vitamin D3] 400 unit PO DAILY tab Continue Mupirocin 2% Oint [Bactroban 2% Oint] 1 applic TOPICAL TID PRN PRN Reason: SKIN LESIONS/INFECTION Meclizine HCl 25 mg PO BID PRN PRN Reason: DIZZINESS Magnesium Hydroxide [Milk of Magnesia] 2,400 mg PO DAILY PRN PRN Reason: Constipation Ipratropium-Albuterol Nebulize [Duoneb 0.5 mg-3 mg/3 ml Soln] 3 ml INHALATION RT-QID PRN PRN Reason: Shortness Of Breath Carbamide Peroxide [Debrox Otic] 6 drops BOTH EARS DAILY PRN PRN Reason: earwax buildup Betamethasone Dipropionate [Diprolene AF 0.05% Cream] 1 applic TOPICAL BID PRN PRN Reason: Rash Fluticasone/Umeclidin/Vilanter [Trelegy Ellipta 100-62.5-25] 1 puff INHALATION RT-DAILY@1999 ALPRAZolam [Xanax] 0.25 mg PO TID PRN PRN Reason: Anxiety risperiDONE 1.5 mg PO BID@0800,1999 Simvastatin [Zocor] 20 mg PO DAILY@1999 amLODIPine [Norvasc] 5 mg PO DAILY@0800 Gabapentin [Neurontin] 300 mg PO TID@0800,1300,2000 polyethylene glycoL 3350 [Miralax] 17 gm PO DAILY@0800 Levothyroxine Sodium [Synthroid] 50 mcg PO DAILY@0800 metFORMIN HCL ER [Glucophage Xr] 500 mg PO HS@1999 guaiFENesin [guaiFENesin Oral Solution] 200 mg PO BID@08,1999 buPROPion HCL [Wellbutrin SR] 150 mg PO BID@799,1999 Docusate [Colace] 100 mg PO BID@799,1999 Vitamin B Complex 1 tab PO DAILY@0800 Baclofen 10 mg PO BID@799,1999 Acetaminophen Tab [Tylenol] 500 - 1,000 mg PO Q8H PRN PRN Reason: Pain Or Fever > 100.5 Theraworx Relief 1 pump TOPICAL BID PRN PRN Reason: CRAMPS Discontinued Furosemide [Lasix] 20 mg PO DAILY PRN PRN Reason: LEG SWELLING Azithromycin [Zithromax] See Taper PO DAILY@0800 Discharge Medication List ALPRAZolam [Xanax] 0.25 mg PO TID PRN 06/15/20 [History] Baclofen 10 mg PO BID@0800,199906/15/20 [History] Betamethasone Dipropionate [Diprolene AF 0.05% Cream] 1 applic TOPICAL BID PRN 06/15/20 [History] Carbamide Peroxide [Debrox Otic] 6 drops BOTH EARS DAILY PRN 06/15/20 [History] Docusate [Colace] 100 mg PO BID@08,199906/15/20 [History] Fluticasone/Umeclidin/Vilanter [Trelegy Ellipta 100-62.5-25] 1 puff INHALATION RT-DAILY@199906/15/20 [History] Gabapentin [Neurontin] 300 mg PO TID@0800,1300,199906/15/20 [History] Ipratropium-Albuterol Nebulize [Duoneb 0.5 mg-3 mg/3 ml Soln] 3 ml INHALATION RT-QID PRN 06/15/20 [History] Levothyroxine Sodium [Synthroid] 50 mcg PO DAILY@0800 06/15/20 [History] Magnesium Hydroxide [Milk of Magnesia] 2,400 mg PO DAILY PRN 06/15/20 [History] Meclizine HCl 25 mg PO BID PRN 06/15/20 [History] Mupirocin 2% Oint [Bactroban 2% Oint] 1 applic TOPICAL TID PRN 06/15/20 [History] Simvastatin [Zocor] 20 mg PO DAILY@199906/15/20 [History] Vitamin B Complex 1 tab PO DAILY@79906/15/20 [History] amLODIPine [Norvasc] 5 mg PO DAILY@79906/15/20 [History] buPROPion HCL [Wellbutrin SR] 150 mg PO BID@799,199906/15/20 [History] guaiFENesin [guaiFENesin Oral Solution] 200 mg PO BID@799,199906/15/20 [History] metFORMIN HCL ER [Glucophage Xr] 500 mg PO HS@199906/15/20 [History] polyethylene glycoL 3350 [Miralax] 17 gm PO DAILY@79906/15/20 [History] risperiDONE 1.5 mg PO BID@799,199906/15/20 [History] Acetaminophen Tab [Tylenol] 500 - 1,000 mg PO Q8H PRN 10/21/20 [History] Theraworx Relief 1 pump TOPICAL BID PRN 10/21/20 [History] Ascorbic Acid [Vitamin C] 500 mg PO DAILY tab 11/07/20 [Rx] Benzocaine/Menthol Lozeng [Cepacol lozenge] 1 each MUCOUS MEM Q2HR PRN lozenge 11/07/20 [Rx] Benzonatate [Tessalon Perles] 100 mg PO TID PRN cap 11/07/20 [Rx] Cholecalciferol [Vitamin D3] 400 unit PO DAILY tab 11/07/20 [Rx] Clopidogrel [Plavix] 75 mg PO DAILY tab 11/07/20 [Rx] Furosemide [Lasix] 20 mg PO DAILY PRN tab 11/07/20 [Rx] HYDROcodone/APAP 5-325MG [[place] 5-325] 1 each PO Q4HR PRN tab 11/07/20 [Rx] Levofloxacin [Levaquin] 750 mg PO DAILY 5 Days #5 tab 11/07/20 [Rx] Zinc Sulfate [Orazinc] 220 mg PO DAILY cap 11/07/20 [Rx] Follow up Appointment(s)/Referral(s): Aby Jacob MD [Primary Care Provider] - 1-2 days
[2020-11-07 16:55] VITALS: BP 168/80; PULSE 61; TEMP 98
== END 2020-11-07 18:00 | disposition home or self-care (01) | DRG 166 ==
LOC: EC 08:57 → 4SSUR 12:51 → 3SCARD 10-23 15:36 → 6NMEDSUR 10-25 22:43
PROVIDERS: ADMIT Internal Medicine; ATTEND Internal Medicine
PROC: B3171ZZ Fluoroscopy of Left Internal Carotid Artery using Low Osmolar Contrast (ICD-10-PCS; principal; 2020-10-23 16:15)
PROC: 047C3EZ Dilation of Right Common Iliac Artery with Two Intraluminal Devices, Percutaneous Approach (ICD-10-PCS; principal; 2020-10-23 16:15)
PROC: B41G1ZZ Fluoroscopy of Left Lower Extremity Arteries using Low Osmolar Contrast (ICD-10-PCS; principal; 2020-10-23 16:15)
PROC: B3101ZZ Fluoroscopy of Thoracic Aorta using Low Osmolar Contrast (ICD-10-PCS; principal; 2020-10-23 16:15)
PROC: B41F1ZZ Fluoroscopy of Right Lower Extremity Arteries using Low Osmolar Contrast (ICD-10-PCS; principal; 2020-10-23 16:15)
PROC: 047D3EZ Dilation of Left Common Iliac Artery with Two Intraluminal Devices, Percutaneous Approach (ICD-10-PCS; principal; 2020-10-23 16:15)
DX: J69.0 Pneumonitis due to inhalation of food and vomit (principal); J96.01 Acute respiratory failure with hypoxia; G92 Toxic encephalopathy; N39.0 Urinary tract infection, site not specified; E87.1 Hypo-osmolality and hyponatremia; J44.1 Chronic obstructive pulmonary disease with (acute) exacerbation; R47.01 Aphasia; E44.0 Moderate protein-calorie malnutrition; Z68.1 Body mass index [BMI] 19.9 or less, adult; K83.8 Other specified diseases of biliary tract; J15.6 Pneumonia due to other Gram-negative bacteria; Z20.828 Contact with and (suspected) exposure to other viral communicable diseases; I27.20 Pulmonary hypertension, unspecified; F22 Delusional disorders; E11.51 Type 2 diabetes mellitus with diabetic peripheral angiopathy without gangrene; I11.0 Hypertensive heart disease with heart failure; I50.9 Heart failure, unspecified; F20.9 Schizophrenia, unspecified; F31.9 Bipolar disorder, unspecified; B95.2 Enterococcus as the cause of diseases classified elsewhere; E03.9 Hypothyroidism, unspecified; E87.5 Hyperkalemia; F17.210 Nicotine dependence, cigarettes, uncomplicated; H91.90 Unspecified hearing loss, unspecified ear; R74.8 Abnormal levels of other serum enzymes; R94.31 Abnormal electrocardiogram [ECG] [EKG]; R32 Unspecified urinary incontinence; I07.1 Rheumatic tricuspid insufficiency; T50.905A Adverse effect of unspecified drugs, medicaments and biological substances, initial encounter; S00.03XA Contusion of scalp, initial encounter; Z79.84 Long term (current) use of oral hypoglycemic drugs; Z79.890 Hormone replacement therapy; Z79.899 Other long term (current) drug therapy; W19.XXXA Unspecified fall, initial encounter
CPT/HCPCS: 36222; 36415; 37221; 70450; 70496; 70498; 71045; 71046; 71275; 72125; 76604; 76705; 80053; 80061; 81001; 82607; 82747; 83605; 83615; 83735; 83880; 84100; 84145; 84484; 85025; 85347; 85379; 85610; 85730; 86140; 87040; 87077; 87086; 87186; 87635; 93005; 93306; 94640; 94760; 96361; 96365; 96375; 99285

== ENCOUNTER 2021-02-14 07:51 | Inpatient (IN) | payer MEDICARE, BC ==
[2021-02-14] MEDS ORDERED: IBUPROFEN IV 600 MG in SODIUM CHLORIDE 0.9% 250 ML IV STA (07:56)
[2021-02-14] MEDS ORDERED: ACETAMINOPHEN SUPPOSITORY 650 MG SUPP RECTAL STA (07:57)
[2021-02-14 07:59] LABS: Glucose,Whole Blood 190 mg/dL (75-99)
[2021-02-14] MEDS: SODIUM CHLORIDE 0.9% 500 ML 500 ML IV SCH ×3 (08:00→08:40)
--- NOTE | 2021-02-14 08:03 | ED ---
General Adult HPI - General Chief complaint: Altered Mental Status Stated complaint: altered Time Seen by Provider: 02/14/21 07:51 Source: patient, EMS, RN notes reviewed, old records reviewed Mode of arrival: EMS Limitations: altered mental status, physical limitation - History of Present Illness Initial comments: This is a 75-year-old female who presents to the emergency department because of unresponsiveness. [facility] per [facility] she was last seen normal at 3 AM. When EMS arrived she was unresponsive she had a GCS of 4 according to EMS. Patient also was oxygenating in the 80s. And a headache axial temperature 103. According to EMS she did have some it appeared that she had vomited and may be aspirated. No further history is a available at this time - Related Data Home Medications Medication Instructions Recorded Confirmed ALPRAZolam [Xanax] 0.25 mg PO TID PRN 06/15/20 02/14/21 Baclofen 10 mg PO BID@0800,199906/15/20 02/14/21 Betamethasone Dipropionate 1 applic TOPICAL BID PRN 06/15/20 02/14/21 [Diprolene AF 0.05% Cream] Carbamide Peroxide [Debrox Otic] 5 drops BOTH EARS DAILY PRN 06/15/20 02/14/21 Docusate [Colace] 100 mg PO BID@0800,199906/15/20 02/14/21 Fluticasone/Umeclidin/Vilanter 1 puff INHALATION RT-DAILY@199906/15/20 02/14/21 [Trelegy Ellipta 100-62.5-25] Gabapentin [Neurontin] 300 mg PO TID@0800,1300,199906/15/20 02/14/21 Ipratropium-Albuterol Nebulize 3 ml INHALATION RT-QID PRN 06/15/20 02/14/21 [Duoneb 0.5 mg-3 mg/3 ml Soln] Levothyroxine Sodium [Synthroid] 50 mcg PO DAILY@0800 06/15/20 02/14/21 Magnesium Hydroxide [Milk of 2,400 mg PO DAILY PRN 06/15/20 02/14/21 Magnesia] Meclizine HCl 25 mg PO BID PRN 06/15/20 02/14/21 Mupirocin 2% Oint [Bactroban 2% 1 applic TOPICAL TID PRN 06/15/20 02/14/21 Oint] Simvastatin [Zocor] 20 mg PO DAILY@199906/15/20 02/14/21 Vitamin B Complex 1 tab PO DAILY@0800 06/15/20 02/14/21 amLODIPine [Norvasc] 5 mg PO DAILY@0800 06/15/20 02/14/21 buPROPion HCL [Wellbutrin SR] 150 mg PO BID@0800,199906/15/20 02/14/21 guaiFENesin [guaiFENesin Oral 200 mg PO BID@0800,199906/15/20 02/14/21 Solution] metFORMIN HCL ER [Glucophage Xr] 500 mg PO HS@199906/15/20 02/14/21 polyethylene glycoL 3350 [Miralax] 17 gm PO DAILY@0800 06/15/20 02/14/21 risperiDONE 1.5 mg PO BID@0800,199906/15/20 02/14/21 Acetaminophen Tab [Tylenol] 500 - 1,000 mg PO Q8H PRN 10/21/20 02/14/21 Theraworx Relief 1 pump TOPICAL BID PRN 10/21/20 02/14/21 Vitamin C 1000mg/Zinc 15mg 1 tab PO DAILY@0802/14/21 02/14/21 Previous Rx's Medication Instructions Recorded Benzonatate [Tessalon Perles] 100 mg PO TID PRN cap 11/07/20 Cholecalciferol [Vitamin D3 (10 400 unit PO DAILY tab 11/07/20 Mcg = 400 Iu)] Clopidogrel [Plavix] 75 mg PO DAILY tab 11/07/20 Furosemide [Lasix] 20 mg PO DAILY PRN tab 11/07/20 Allergies Allergy/AdvReac Type Severity Reaction Status Date / Time No Known Allergies Allergy Verified 02/14/21 08:21 Review of Systems ROS Statement: Those systems with pertinent positive or pertinent negative responses have been documented in the HPI. ROS Other: All systems not noted in ROS Statement are negative. Past Medical History Past Medical History: COPD, Diabetes Mellitus, Hypertension, Thyroid Disorder History of Any Multi-Drug Resistant Organisms: None Reported Past Surgical History: No Surgical Hx Reported Past Anesthesia/Blood Transfusion Reactions: No Reported Reaction Past Psychological History: Depression, Schizophrenia Smoking Status: Current every day smoker Past Alcohol Use History: Abuse Past Drug Use History: None Reported General Exam - General Exam Comments Initial Comments: GENERAL: Patient is well-developed and well-nourished. Patient is nontoxic and well- hydrated and is in mild distress. ENT: Neck is soft and supple. No significant lymphadenopathy is noted. Oropharynx is clear. Moist mucous membranes. Neck has full range of motion without eliciting any pain. EYES: The sclera were anicteric and conjunctiva were pink and moist. Extraocular movements were intact and pupils were equal round and reactive to light. Eyelids were unremarkable. PULMONARY: Unlabored respirations. Good breath sounds bilaterally. No audible rales rhonchi or wheezing was noted. CARDIOVASCULAR: There is a regular rate and rhythm without any murmurs gallops or rubs. ABDOMEN: Soft and nontender with normal bowel sounds. SKIN: Skin is clear with no lesions or rashes and otherwise unremarkable. NEUROLOGIC: Patient is alert and oriented x3. Cranial nerves II through XII are grossly int act. Motor and sensory are also intact. Normal speech, volume and content. Symmetrical smile. MUSCULOSKELETAL: Normal extremities with adequate strength and full range of motion. LYMPHATICS: No significant lymphadenopathy is noted PSYCHIATRIC: Normal psychiatric evaluation. Limitations: altered mental status, physical limitation Course Vital Signs 02/14/21 02/14/21 02/14/21 07:52 08:26 09:15 Temperature 101.2 F H Pulse Rate 124 H 103 H 85 Respiratory 28 H 30 H 28 H Rate Blood Pressure 129/74 115/61 69/43 O2 Sat by Pulse 95 98 100 Oximetry 02/14/21 02/14/21 02/14/21 10:00 10:30 11:00 Temperature 98.7 F Pulse Rate 73 71 67 Respiratory 26 H 24 24 Rate Blood Pressure 64/40 89/32 89/38 O2 Sat by Pulse 90 L 90 L 91 L Oximetry Medical Decision Making - Medical Decision Making EKG shows sinus tachycardia at [address] interval is 164 QRS is 96 QT interval 302 QTC is 433. Patient EKG shows no ST segment elevation or depression. Chest x-ray is consistent with COVID pneumonia. Patient was given 3 L of fluid patient was much more alert was able to answer basic questions. Son was contacted he wanted the patient to be a DO NOT RESUSCITATE. Patient was given steroids in the emergency department. Patient was oxygenating in the 90s on a venting mask. I spoke with Dr. Sanchez he wanted the patient admitted admitted the patient and I consult Dr. Jim. - Lab Data Result diagrams: 02/14/21 08:02 02/14/21 08:02 Lab Results 02/14/21 02/14/21 02/14/21 Range/Units 07:57 08:02 08:02 WBC 7.1 (3.8-10.6) k/uL RBC 3.41 L (3.80-5.40) m/uL Hgb 10.2 L (11.4-16.0) gm/dL Hct 30.7 L (34.0-46.0) % MCV 90.1 (80.0-100.0) fL MCH 29.9 (25.0-35.0) pg MCHC 33.1 (31.0-37.0) g/dL RDW 15.9 H (11.5-15.5) % Plt Count 338 (150-450) k/uL MPV 6.8 Neutrophils % 84 % Lymphocytes % 7 % Monocytes % 6 % Eosinophils % 0 % Basophils % 1 % Neutrophils # 6.0 (1.3-7.7) k/uL Lymphocytes # 0.5 L (1.0-4.8) k/uL Monocytes # 0.4 (0-1.0) k/uL Eosinophils # 0.0 (0-0.7) k/uL Basophils # 0.1 (0-0.2) k/uL PT (9.0-12.0) sec INR (<1.2) APTT (22.0-30.0) sec Sodium (137-145) mmol/L Potassium (3.5-5.1) mmol/L Chloride (98-107) mmol/L Carbon Dioxide (22-30) mmol/L Anion Gap mmol/L BUN (7-17) mg/dL Creatinine (0.52-1.04) mg/dL Est GFR (CKD-EPI)AfAm (>60 ml/min/1.73 sqM) Est GFR (CKD-EPI)NonAf (>60 ml/min/1.73 sqM) Glucose (74-99) mg/dL POC Glucose (mg/dL) 190 H (75-99) mg/dL POC Glu Media Associate ID Tiera Rogers Plasma Lactic Acid Shawn (0.7-2.0) mmol/L Calcium (8.4-10.2) mg/dL Total Bilirubin (0.2-1.3) mg/dL AST (14-36) U/L ALT (4-34) U/L Alkaline Phosphatase (38-126) U/L Total Protein (6.3-8.2) g/dL Albumin (3.5-5.0) g/dL Urine Color Urine Appearance (Clear) Urine pH (5.0-8.0) Ur Specific [place] (1.001-1.035) Urine Protein (Negative) Urine Glucose (UA) (Negative) Urine Ketones (Negative) Urine Blood (Negative) Urine Nitrite (Negative) Urine Bilirubin (Negative) Urine Urobilinogen (<2.0) mg/dL Ur Leukocyte Esterase (Negative) Urine RBC (0-5) /hpf Urine WBC (0-5) /hpf Urine Mucus (None) /hpf Coronavirus (PCR) Detected A (Not Detectd) 02/14/21 02/14/21 02/14/21 Range/Units 08:02 08:02 08:02 WBC (3.8-10.6) k/uL RBC (3.80-5.40) m/uL Hgb (11.4-16.0) gm/dL Hct (34.0-46.0) % MCV (80.0-100.0) fL MCH (25.0-35.0) pg MCHC (31.0-37.0) g/dL RDW (11.5-15.5) % Plt Count (150-450) k/uL MPV Neutrophils % % Lymphocytes % % Monocytes % % Eosinophils % % Basophils % % Neutrophils # (1.3-7.7) k/uL Lymphocytes # (1.0-4.8) k/uL Monocytes # (0-1.0) k/uL Eosinophils # (0-0.7) k/uL Basophils # (0-0.2) k/uL PT 10.9 (9.0-12.0) sec INR 1.0 (<1.2) APTT 23.6 (22.0-30.0) sec Sodium 128 L (137-145) mmol/L Potassium 4.5 (3.5-5.1) mmol/L Chloride 98 (98-107) mmol/L Carbon Dioxide 23 (22-30) mmol/L Anion Gap 7 mmol/L BUN 15 (7-17) mg/dL Creatinine 0.79 (0.52-1.04) mg/dL Est GFR (CKD-EPI)AfAm 85 (>60 ml/min/1.73 sqM) Est GFR (CKD-EPI)NonAf 74 (>60 ml/min/1.73 sqM) Glucose 187 H (74-99) mg/dL POC Glucose (mg/dL) (75-99) mg/dL POC Glu Media Associate ID Plasma Lactic Acid Shawn (0.7-2.0) mmol/L Calcium 8.1 L (8.4-10.2) mg/dL Total Bilirubin 0.2 (0.2-1.3) mg/dL AST 34 (14-36) U/L ALT 19 (4-34) U/L Alkaline Phosphatase 52 (38-126) U/L Total Protein 6.5 (6.3-8.2) g/dL Albumin 3.1 L (3.5-5.0) g/dL Urine Color Yellow Urine Appearance Clear (Clear) Urine pH 6.0 (5.0-8.0) Ur Specific [place] 1.014 (1.001-1.035) Urine Protein 1+ H (Negative) Urine Glucose (UA) Negative (Negative) Urine Ketones Trace H (Negative) Urine Blood Negative (Negative) Urine Nitrite Negative (Negative) Urine Bilirubin Negative (Negative) Urine Urobilinogen <2.0 (<2.0) mg/dL Ur Leukocyte Esterase Negative (Negative) Urine RBC <1 (0-5) /hpf Urine WBC 1 (0-5) /hpf Urine Mucus Rare H (None) /hpf Coronavirus (PCR) (Not Detectd) 02/14/21 Range/Units 08:02 WBC (3.8-10.6) k/uL RBC (3.80-5.40) m/uL Hgb (11.4-16.0) gm/dL Hct (34.0-46.0) % MCV (80.0-100.0) fL MCH (25.0-35.0) pg MCHC (31.0-37.0) g/dL RDW (11.5-15.5) % Plt Count (150-450) k/uL MPV Neutrophils % % Lymphocytes % % Monocytes % % Eosinophils % % Basophils % % Neutrophils # (1.3-7.7) k/uL Lymphocytes # (1.0-4.8) k/uL Monocytes # (0-1.0) k/uL Eosinophils # (0-0.7) k/uL Basophils # (0-0.2) k/uL PT (9.0-12.0) sec INR (<1.2) APTT (22.0-30.0) sec Sodium (137-145) mmol/L Potassium (3.5-5.1) mmol/L Chloride (98-107) mmol/L Carbon Dioxide (22-30) mmol/L Anion Gap mmol/L BUN (7-17) mg/dL Creatinine (0.52-1.04) mg/dL Est GFR (CKD-EPI)AfAm (>60 ml/min/1.73 sqM) Est GFR (CKD-EPI)NonAf (>60 ml/min/1.73 sqM) Glucose (74-99) mg/dL POC Glucose (mg/dL) (75-99) mg/dL POC Glu Media Associate ID Plasma Lactic Acid Shawn 1.5 (0.7-2.0) mmol/L Calcium (8.4-10.2) mg/dL Total Bilirubin (0.2-1.3) mg/dL AST (14-36) U/L ALT (4-34) U/L Alkaline Phosphatase (38-126) U/L Total Protein (6.3-8.2) g/dL Albumin (3.5-5.0) g/dL Urine Color Urine Appearance (Clear) Urine pH (5.0-8.0) Ur Specific [place] (1.001-1.035) Urine Protein (Negative) Urine Glucose (UA) (Negative) Urine Ketones (Negative) Urine Blood (Negative) Urine Nitrite (Negative) Urine Bilirubin (Negative) Urine Urobilinogen (<2.0) mg/dL Ur Leukocyte Esterase (Negative) Urine RBC (0-5) /hpf Urine WBC (0-5) /hpf Urine Mucus (None) /hpf Coronavirus (PCR) (Not Detectd) Critical Care Time Critical Care Time: Yes Total Critical Care Time: 35 Disposition Clinical Impression: Hypoxia, Pneumonia due to COVID-19 virus, Altered mental status Disposition: ADMITTED IP TO THIS HOSP Referrals: Aby Jacob MD [Primary Care Provider] - 1-2 days Time of Disposition: 10:54
[2021-02-14 08:30] LABS: Appearance,Urine Clear (Clear); Bilirubin,Urine Negative (Negative); Blood,Urine Negative (Negative); Color,Urine Yellow; Glucose,Urine (UA) Negative (Negative); Ketones,Urine Trace (Negative); Leukocyte Esterase,Urine Negative (Negative); Mucus,Urine Rare /hpf; Nitrite,Urine Negative (Negative); Protein,Urine 1+ (Negative); RBC,Urine <1 /hpf (0-5); Specific Gravity,Urine 1.014 (1.001-1.035); Urobilinogen,Urine <2.0 mg/dL (<2.0); WBC,Urine 1 /hpf (0-5)
[2021-02-14 08:36] LABS: Basophils # (A) 0.1 k/uL (0-0.2); Basophils % (A) 1 %; Eosinophils % (A) 0 %; HCT 30.7 % (34.0-46.0); HGB 10.2 gm/dL (11.4-16.0); Lymphocytes # (A) 0.5 k/uL (1.0-4.8); Lymphocytes % (A) 7 %; MCH 29.9 pg (25.0-35.0); MCHC 33.1 g/dL (31.0-37.0); MCV 90.1 fL (80.0-100.0); Mean Platelet Volume 6.8; Monocytes # (A) 0.4 k/uL (0-1.0); Monocytes % (A) 6 %; Neutrophils % (A) 84 %; Platelet Count 338 k/uL (150-450); RBC 3.41 m/uL (3.80-5.40); RDW 15.9 % (11.5-15.5); WBC 7.1 k/uL (3.8-10.6)
--- NOTE | 2021-02-14 08:41 | XR ---
EXAMINATION TYPE: XR chest 1V portable DATE OF EXAM: 02/14/2021 COMPARISON: Chest x-ray November 06, 2020 and older studies. CTA chest October 27, 2020 HISTORY: Fever. TECHNIQUE: Single AP portable frontal upright view of the chest is obtained. FINDINGS: There is background chronic emphysematous and pulmonary fibrotic change bilaterally with i ncreased opacities recurrent in the bilateral lower lungs and right upper lung. Tiny bilateral pleura l effusions are likely present. Mild cardiomegaly redemonstrated. Osseous structures remain demineral ized. IMPRESSION: Chronic changes and mild cardiomegaly with tiny bilateral pleural effusions. New And/or recurrent right upper lung and bibasilar acute infiltrates on current study.
[2021-02-14 08:45] LABS: Partial Thromboplastin Time 23.6 sec (22.0-30.0); Prothrombin Time 10.9 sec (9.0-12.0)
[2021-02-14 08:47] LABS: Albumin 3.1 g/dL (3.5-5.0); Calcium 8.1 mg/dL (8.4-10.2); Potassium 4.5 mmol/L (3.5-5.1); Total Bilirubin 0.2 mg/dL (0.2-1.3); Total Protein 6.5 g/dL (6.3-8.2)
[2021-02-14] MEDS ORDERED: dexAMETHasone 2 MG TAB PO STA (09:10)
[2021-02-14] MEDS ORDERED: SODIUM CHLORIDE 0.9% 1,000 ML IV STA ×2 (09:15→10:05)
[2021-02-14] MEDS: DEXAMETHASONE SOD PHOSPHATE 10 MG/ML 1 ML VIAL IV SCH (10:05)
[2021-02-14] MEDS ORDERED: NOREPINEPHRINE 4 MG in SODIUM CHLORIDE 0.9% 250 ML IV ONE (11:15)
[2021-02-14] MEDS ORDERED: NALOXONE 0.4 MG/ML 1 ML VIAL IV PRN (11:32)
[2021-02-14 13:28] LABS: Glucose,Whole Blood 159 mg/dL (75-99)
[2021-02-14 14:09] LABS: Amorphous Sediment,Urine Rare /hpf; Appearance,Urine Clear (Clear); Bacteria,Urine Rare /hpf; Bilirubin,Urine Negative (Negative); Blood,Urine Negative (Negative); Color,Urine Yellow; Glucose,Urine (UA) Negative (Negative); Hyaline Casts,Urine 6 /lpf (0-2); Ketones,Urine Negative (Negative); Leukocyte Esterase,Urine Negative (Negative); Mucus,Urine Rare /hpf; Nitrite,Urine Negative (Negative); Protein,Urine 1+ (Negative); RBC,Urine 3 /hpf (0-5); Specific Gravity,Urine 1.014 (1.001-1.035); Squamous Epithelial Cell,Urine <1 /hpf (0-4); Urobilinogen,Urine <2.0 mg/dL (<2.0); WBC,Urine 3 /hpf (0-5)
[2021-02-14] MEDS: NOREPINEPHRINE 4 MG in SODIUM CHLORIDE 0.9% 250 ML IV SCH (14:19)
[2021-02-14] MEDS: SODIUM CHLORIDE 0.9% 1,000 ML IV SCH ×2 (14:20→23:38)
--- NOTE | 2021-02-14 14:59 | P.HPIM ---
History of Present Illness H&P Date: 02/14/21 Sofía Leslie, is a 75-year-old female patient of Dr. Jacob who presented to [facility] emergency room with a chief complaint of being and responsive, patient was last seen at the nursing facility where she leaves at 3 AM, she was found in the morning and responsive EMS were called pulse ox was in the 80s, and temperature was 103 she was evaluated in the emergency room vital examination on arrival to emergency room reveals a temperature of 101.2 pulse 124 respiration 28 blood pressure 129/74 pulse ox 95% on nonrebreather mask at 15 L her white blood count was 7.1 hemoglobin 10.2 platelet count 338 sodium 128 glucose 187 AST and ALT normal BUN 15 creatinine 0.79 coronavirus PCR was positive. EKG was done in the emergency room and revealed sinus tachycardia with left anterior fascicular block and possible old septal infarct as evidenced by poor R-wave progression in the anterior leads. Chest x-ray revealed mild cardiomegaly with small bilateral pleural effusions, right upper lung and bybasilar acute infiltrates. Patient was admitted to intensive care unit pulmonary consultation was requested. Patient is unable to provide any information for review of system and past medical history. From review of her chart, she has a past medical history of hypertension with hypertensive heart disease, history of hyperlipidemia, history of hypothyroidism, history of pulmonary hypertension, history of COPD, and history of diabetes Mellitus. Past Medical History Past Medical History: COPD, Diabetes Mellitus, Hypertension, Thyroid Disorder Additional Past Medical History / Comment(s): Musclespasms, Fracture R Radius, Fracture Nasal Bones History of Any Multi-Drug Resistant Organisms: None Reported Past Surgical History: No Surgical Hx Reported Past Anesthesia/Blood Transfusion Reactions: No Reported Reaction Past Psychological History: Depression, Schizophrenia Additional Psychological History / Comment(s): SEVERELY PARANOID Smoking Status: Current every day smoker Past Alcohol Use History: Abuse Past Drug Use History: None Reported - Past Family History Father History Unknown: Yes Medications and Allergies Home Medications Medication Instructions Recorded Confirmed Type ALPRAZolam [Xanax] 0.25 mg PO TID PRN 06/15/20 02/14/21 History Baclofen 10 mg PO BID@0800,199906/15/20 02/14/21 History Betamethasone Dipropionate 1 applic TOPICAL BID PRN 06/15/20 02/14/21 History [Diprolene AF 0.05% Cream] Carbamide Peroxide [Debrox Otic] 5 drops BOTH EARS DAILY PRN 06/15/20 02/14/21 History Docusate [Colace] 100 mg PO BID@0800,199906/15/20 02/14/21 History Fluticasone/Umeclidin/Vilanter 1 puff INHALATION RT-DAILY@199906/15/20 02/14/21 History [Trelegy Ellipta 100-62.5-25] Gabapentin [Neurontin] 300 mg PO TID@0800,1300,199906/15/20 02/14/21 History Ipratropium-Albuterol Nebulize 3 ml INHALATION RT-QID PRN 06/15/20 02/14/21 History [Duoneb 0.5 mg-3 mg/3 ml Soln] Levothyroxine Sodium [Synthroid] 50 mcg PO DAILY@0800 06/15/20 02/14/21 History Magnesium Hydroxide [Milk of 2,400 mg PO DAILY PRN 06/15/20 02/14/21 History Magnesia] Meclizine HCl 25 mg PO BID PRN 06/15/20 02/14/21 History Mupirocin 2% Oint [Bactroban 2% 1 applic TOPICAL TID PRN 06/15/20 02/14/21 History Oint] Simvastatin [Zocor] 20 mg PO DAILY@199906/15/20 02/14/21 History Vitamin B Complex 1 tab PO DAILY@0800 06/15/20 02/14/21 History amLODIPine [Norvasc] 5 mg PO DAILY@0800 06/15/20 02/14/21 History buPROPion HCL [Wellbutrin SR] 150 mg PO BID@0800,199906/15/20 02/14/21 History guaiFENesin [guaiFENesin Oral 200 mg PO BID@0800,199906/15/20 02/14/21 History Solution] metFORMIN HCL ER [Glucophage Xr] 500 mg PO HS@199906/15/20 02/14/21 History polyethylene glycoL 3350 [Miralax] 17 gm PO DAILY@0800 06/15/20 02/14/21 History risperiDONE 1.5 mg PO BID@0800,199906/15/20 02/14/21 History Acetaminophen Tab [Tylenol] 500 - 1,000 mg PO Q8H PRN 10/21/20 02/14/21 History Theraworx Relief 1 pump TOPICAL BID PRN 10/21/20 02/14/21 History Benzonatate [Tessalon Perles] 100 mg PO TID PRN cap 11/07/20 02/14/21 Rx Cholecalciferol [Vitamin D3 (10 400 unit PO DAILY tab 11/07/20 02/14/21 Rx Mcg = 400 Iu)] Clopidogrel [Plavix] 75 mg PO DAILY tab 11/07/20 02/14/21 Rx Furosemide [Lasix] 20 mg PO DAILY PRN tab 11/07/20 02/14/21 Rx Vitamin C 1000mg/Zinc 15mg 1 tab PO DAILY@0800 02/14/21 02/14/21 History Allergies Allergy/AdvReac Type Severity Reaction Status Date / Time No Known Allergies Allergy Verified 02/14/21 08:21 Physical Exam Vitals: Vital Signs Temp Pulse Resp BP Pulse Ox 02/14/21 14:15 65 13 106/63 93 L 02/14/21 14:00 64 16 105/66 93 L 02/14/21 13:45 67 20 105/64 98 02/14/21 13:30 96.5 F L 25 H 107/68 99 02/14/21 13:15 65 21 95/58 99 02/14/21 13:10 98.7 F 65 24 95/58 99 02/14/21 12:51 67 22 99 02/14/21 12:35 66 18 96/60 98 02/14/21 12:24 90 L 02/14/21 12:19 68 24 81/51 86 L 02/14/21 11:30 70 26 H 72/34 92 L 02/14/21 11:00 67 24 89/38 91 L 02/14/21 10:30 98.7 F 71 24 89/32 90 L 02/14/21 10:00 73 26 H 64/40 90 L 02/14/21 09:15 85 28 H 69/43 100 02/14/21 08:26 103 H 30 H 115/61 98 02/14/21 07:52 101.2 F H 124 H 28 H 129/74 95 Intake and Output 02/13/21 02/14/2121 22:59 06:59 14:59 Intake Total 12.702 Balance 12.702 Intake: Intake, IV Titration 12.702 Amount Norepinephrine 4 mg In 12.702 Sodium Chloride 0.9% 250 ml @ 0.05 MCG/KG/MIN 15. 554 mls/hr IV .[id number] ONE Rx#:[id number] Other: Weight 81.647 kg In general patient is alert responsive in no apparent distress, currently she is maintained on oxygen 10 L high flow HEENT head normocephalic and atraumatic Neck is supple no JVD no goiter no lymphadenopathy Chest exam reveals coarse crackles in both lung conley with wheezing Cardiac exam reveals regular heart sounds S1 and S2 no gallops no murmurs Abdomen is soft nontender no organomegaly with normal bowel sounds Extremity exam reveals no edema no cyanosis or clubbing Neurological examination is limited but does not show any gross focal deficit Results CBC & Chem 7: 02/14/21 08:02 02/14/21 08:02 Labs: Abnormal Lab Results - Last 24 Hours (Table) 02/14/21 02/14/21 02/14/21 Range/Units 07:57 08:02 08:02 RBC 3.41 L (3.80-5.40) m/uL Hgb 10.2 L (11.4-16.0) gm/dL Hct 30.7 L (34.0-46.0) % RDW 15.9 H (11.5-15.5) % Lymphocytes # 0.5 L (1.0-4.8) k/uL Sodium (137-145) mmol/L Glucose (74-99) mg/dL POC Glucose (mg/dL) 190 H (75-99) mg/dL Calcium (8.4-10.2) mg/dL Albumin (3.5-5.0) g/dL Urine Protein (Negative) Urine Ketones (Negative) Amorphous Sediment (None) /hpf Urine Bacteria (None) /hpf Hyaline Casts (0-2) /lpf Urine Mucus (None) /hpf Coronavirus (PCR) Detected A (Not Detectd) 02/14/21 02/14/21 02/14/21 Range/Units 08:02 08:02 13:25 RBC (3.80-5.40) m/uL Hgb (11.4-16.0) gm/dL Hct (34.0-46.0) % RDW (11.5-15.5) % Lymphocytes # (1.0-4.8) k/uL Sodium 128 L (137-145) mmol/L Glucose 187 H (74-99) mg/dL POC Glucose (mg/dL) 159 H (75-99) mg/dL Calcium 8.1 L (8.4-10.2) mg/dL Albumin 3.1 L (3.5-5.0) g/dL Urine Protein 1+ H (Negative) Urine Ketones Trace H (Negative) Amorphous Sediment (None) /hpf Urine Bacteria (None) /hpf Hyaline Casts (0-2) /lpf Urine Mucus Rare H (None) /hpf Coronavirus (PCR) (Not Detectd) 02/14/21 Range/Units 14:00 RBC (3.80-5.40) m/uL Hgb (11.4-16.0) gm/dL Hct (34.0-46.0) % RDW (11.5-15.5) % Lymphocytes # (1.0-4.8) k/uL Sodium (137-145) mmol/L Glucose (74-99) mg/dL POC Glucose (mg/dL) (75-99) mg/dL Calcium (8.4-10.2) mg/dL Albumin (3.5-5.0) g/dL Urine Protein 1+ H (Negative) Urine Ketones (Negative) Amorphous Sediment Rare H (None) /hpf Urine Bacteria Rare H (None) /hpf Hyaline Casts 6 H (0-2) /lpf Urine Mucus Rare H (None) /hpf Coronavirus (PCR) (Not Detectd) Assessment and Plan Plan: Acute Covid 19 infection with evidence of multifocal pneumonia Acute hypoxic respiratory failure Underlying history of hypertension Underlying history of hyperlipidemia Underlying history of hypothyroidism Underlying history of pulmonary hypertension Underlying history of hypertensive heart disease Underlying history of schizophrenia, major depression, and paranoid personality disorder per chart Patient is admitted to intensive care unit She was started on IV dexamethasone and subcu Lovenox She was started on norepinephrine drip She was given a dose of IV Rocephin 2 g in the emergency room Pulmonary critical care consultation and infectious disease requested requested Patient is unable to provide any information, all past medical history is derived from review of her chart
--- NOTE | 2021-02-14 15:50 | P.CNPUL ---
History of Present Illness Consult date: 02/14/21 Requesting physician: Agnieszka Sanchez Reason for consult: other Chief complaint: Mental status changes. Hypotension. History of present illness: 75-year-old female, who is brought into the emergency department by EMS, because of unresponsiveness. She apparently resides at a longterm, and according to EMS, who received information from the staff at the longterm, was apparently normal at 3 AM. When EMS arrived, she was unresponsive, had a Ovi Coma Scale of 4, and also had saturations which were in the 80s. She had an axial temperature of 103, and it appeared that she may have vomited and aspirated. The patient is seen today in the ICU. She is currently on a nonrebreather mask, but the nurses think they can get her down to 8 L high flow or less. The patient was tested for COVID, and tested positive. Currently, she is on norepinephrine at 7.3 mcg/m, saline at 100 mL an hour. She is a DO NOT RESUSCITATE, DO NOT INTUBATE patient. Apparently her son said that she he would agree to resuscitation with fluids, and vasopressors but nothing more aggressive than that. She herself, can give no additional history other than the fact that she states that she was sick for about 4 days. She is on a number different medications, all of which are listed in the ER lia. Apparently her past medical history includes COPD, diabetes, hypertension, hypothyroidism, as well as depression, schizophrenia, and ongoing tobacco abuse. White count is 7.1, hemoglobin 10.2, hematocrit 30.7, and platelet count 338,000. PT/INR and PTT are all normal. Sodium is a bit low at 128, potassium 4.5, chlorides 98, CO2 23, anion gap 7, BUN 15, and creatinine 0.79. Urine appears to be negative for urinary tract infection. Chest x-ray shows some bilateral infiltrates, more right than left-sided. This could be consistent with some mild fluid overload, and/or aspiration. Review of Systems REVIEW OF SYSTEMS: CONSTITUTIONAL: [Negative.] NEUROLOGIC: Patient unable to give any additional history. HEENT: [ Negative.] CARDIAC: [Negative.] PULMONARY: Possible aspiration, and low saturations according to EMS. GI: [Negative.] : [Negative.] RHEUMATOLOGIC: [ Negative.] IMMUNOLOGIC: [ Negative.] ENDOCRINE: [Negative. ] DERMATOLOGIC: [Negative.] Past Medical History Past Medical History: COPD, Diabetes Mellitus, Hypertension, Thyroid Disorder Additional Past Medical History / Comment(s): Musclespasms, Fracture R Radius, Fracture Nasal Bones History of Any Multi-Drug Resistant Organisms: None Reported Past Surgical History: No Surgical Hx Reported Past Anesthesia/Blood Transfusion Reactions: No Reported Reaction Past Psychological History: Depression, Schizophrenia Additional Psychological History / Comment(s): SEVERELY PARANOID Smoking Status: Current every day smoker Past Alcohol Use History: Abuse Past Drug Use History: None Reported - Past Family History Father History Unknown: Yes Medications and Allergies Home Medications Medication Instructions Recorded Confirmed Type ALPRAZolam [Xanax] 0.25 mg PO TID PRN 06/15/20 02/14/21 History Baclofen 10 mg PO BID@0800,199906/15/20 02/14/21 History Betamethasone Dipropionate 1 applic TOPICAL BID PRN 06/15/20 02/14/21 History [Diprolene AF 0.05% Cream] Carbamide Peroxide [Debrox Otic] 5 drops BOTH EARS DAILY PRN 06/15/20 02/14/21 History Docusate [Colace] 100 mg PO BID@0800,199906/15/20 02/14/21 History Fluticasone/Umeclidin/Vilanter 1 puff INHALATION RT-DAILY@199906/15/20 02/14/21 History [Trelegy Ellipta 100-62.5-25] Gabapentin [Neurontin] 300 mg PO TID@0800,1300,199906/15/20 02/14/21 History Ipratropium-Albuterol Nebulize 3 ml INHALATION RT-QID PRN 06/15/20 02/14/21 History [Duoneb 0.5 mg-3 mg/3 ml Soln] Levothyroxine Sodium [Synthroid] 50 mcg PO DAILY@0800 06/15/20 02/14/21 History Magnesium Hydroxide [Milk of 2,400 mg PO DAILY PRN 06/15/20 02/14/21 History Magnesia] Meclizine HCl 25 mg PO BID PRN 06/15/20 02/14/21 History Mupirocin 2% Oint [Bactroban 2% 1 applic TOPICAL TID PRN 06/15/20 02/14/21 History Oint] Simvastatin [Zocor] 20 mg PO DAILY@199906/15/20 02/14/21 History Vitamin B Complex 1 tab PO DAILY@0800 06/15/20 02/14/21 History amLODIPine [Norvasc] 5 mg PO DAILY@0800 06/15/20 02/14/21 History buPROPion HCL [Wellbutrin SR] 150 mg PO BID@0800,199906/15/20 02/14/21 History guaiFENesin [guaiFENesin Oral 200 mg PO BID@0800,199906/15/20 02/14/21 History Solution] metFORMIN HCL ER [Glucophage Xr] 500 mg PO HS@199906/15/20 02/14/21 History polyethylene glycoL 3350 [Miralax] 17 gm PO DAILY@0800 06/15/20 02/14/21 History risperiDONE 1.5 mg PO BID@0800,199906/15/20 02/14/21 History Acetaminophen Tab [Tylenol] 500 - 1,000 mg PO Q8H PRN 10/21/20 02/14/21 History Theraworx Relief 1 pump TOPICAL BID PRN 10/21/20 02/14/21 History Benzonatate [Tessalon Perles] 100 mg PO TID PRN cap 11/07/20 02/14/21 Rx Cholecalciferol [Vitamin D3 (10 400 unit PO DAILY tab 11/07/20 02/14/21 Rx Mcg = 400 Iu)] Clopidogrel [Plavix] 75 mg PO DAILY tab 11/07/20 02/14/21 Rx Furosemide [Lasix] 20 mg PO DAILY PRN tab 11/07/20 02/14/21 Rx Vitamin C 1000mg/Zinc 15mg 1 tab PO DAILY@0800 02/14/21 02/14/21 History Allergies Allergy/AdvReac Type Severity Reaction Status Date / Time No Known Allergies Allergy Verified 02/14/21 08:21 Physical Exam Osteopathic Statement: *. No significant issues noted on an osteopathic structural exam other than those noted in the History and Physical/Consult. Vitals: Vital Signs Temp Pulse Resp BP Pulse Ox 02/14/21 15:00 66 18 106/64 92 L 02/14/21 14:45 66 19 105/63 91 L 02/14/21 14:30 66 19 105/64 90 L 02/14/21 14:15 65 13 106/63 93 L 02/14/21 14:00 64 16 105/66 93 L 02/14/21 13:45 67 20 105/64 98 02/14/21 13:30 96.5 F L 25 H 107/68 99 02/14/21 13:15 65 21 95/58 99 02/14/21 13:10 98.7 F 65 24 95/58 99 02/14/21 12:51 67 22 99 02/14/21 12:35 66 18 96/60 98 02/14/21 12:24 90 L 02/14/21 12:19 68 24 81/51 86 L 02/14/21 11:30 70 26 H 72/34 92 L 02/14/21 11:00 67 24 89/38 91 L 02/14/21 10:30 98.7 F 71 24 89/32 90 L 02/14/21 10:00 73 26 H 64/40 90 L 02/14/21 09:15 85 28 H 69/43 100 02/14/21 08:26 103 H 30 H 115/61 98 02/14/21 07:52 101.2 F H 124 H 28 H 129/74 95 Intake and Output 02/14/21 02/14/21 02/14/21 06:59 14:59 22:59 Intake Total 212.702 100 Output Total 130 60 Balance 82.702 40 Intake: IV 200 100 Sodium Chloride 0.9% 1, 200 100 000 ml @ 100 mls/hr IV . Q10H [facility] Rx#:[id number] Intake, IV Titration 12.702 Amount Norepinephrine 4 mg In 12.702 Sodium Chloride 0.9% 250 ml @ 0.05 MCG/KG/MIN 15. 554 mls/hr IV .[id number] Rx#:[id number] Output: Urine 130 60 Other: Weight 81.647 kg No acute distress, a bit somnolent/lethargic, but arouses. Currently, with a nonrebreather mask, and saturations under percent. HEENT examination is grossly unremarkable. Mucous membranes are moist. Neck supple. Full range of motion. No adenopathy thyromegaly or neck vein distention. Cardiovascular examination reveals regular rhythm rate. S1-S2 normal. No S3 or S4. No discernible murmur noted. Heart sounds are distant. Heart rate is 66 bpm. Lungs reveal bilateral rhonchi, and a few scattered bilateral crackles. No wheezes. Breath sounds equal bilaterally but diminished throughout. Abdomen soft bowel sounds are heard. No masses or tenderness. Extremities are intact. No cyanosis clubbing or edema. Skin is without rash or lesion. Neurologic examination is very difficult to assess. She is very lethargic. Doesn't really say very much when questions are asked. Results - Laboratory Findings CBC and BMP: 02/14/21 08:02 02/14/21 08:02 PT/INR, D-dimer PT 10.9 sec (9.0-12.0) 02/14/21 08:02 INR 1.0 (<1.2) 02/14/21 08:02 Abnormal lab findings: Abnormal Labs 02/14/21 02/14/21 02/14/21 07:57 08:02 08:02 RBC 3.41 L Hgb 10.2 L Hct 30.7 L RDW 15.9 H Lymphocytes # 0.5 L Sodium Glucose POC Glucose (mg/dL) 190 H Calcium Albumin Urine Protein Urine Ketones Amorphous Sediment Urine Bacteria Hyaline Casts Urine Mucus Coronavirus (PCR) Detected A 02/14/21 02/14/21 02/14/21 08:02 08:02 13:25 RBC Hgb Hct RDW Lymphocytes # Sodium 128 L Glucose 187 H POC Glucose (mg/dL) 159 H Calcium 8.1 L Albumin 3.1 L Urine Protein 1+ H Urine Ketones Trace H Amorphous Sediment Urine Bacteria Hyaline Casts Urine Mucus Rare H Coronavirus (PCR) 02/14/21 14:00 RBC Hgb Hct RDW Lymphocytes # Sodium Glucose POC Glucose (mg/dL) Calcium Albumin Urine Protein 1+ H Urine Ketones Amorphous Sediment Rare H Urine Bacteria Rare H Hyaline Casts 6 H Urine Mucus Rare H Coronavirus (PCR) - Diagnostic Findings Chest x-ray: image reviewed Assessment and Plan Assessment: Acute mental status changes, of unclear etiology. This may relate to aspiration pneumonia. Initial low saturations, possibly secondary to aspiration pneumonia or fluid overload. Unresponsiveness, of unclear etiology. Hypotension, which may relate to underlying sepsis. History of hyperlipidemia. History of hypertension. History of hypothyroidism. Possible history of underlying COPD. History of diabetes mellitus. History of ongoing tobacco use with nicotine addiction. History of depression and schizophrenia. Plan: Plan dated 02/14/2021. The patient's currently on norepinephrine at 7.3 mcg/m. The patient is receiving saline at 100 mL an hour. The patient may have aspirated. The patient is a DO NOT RESUSCITATE/DO NOT INTUBATE patient. The nonrebreather mask be discontinued in favor of high flow oxygen therapy. We'll attempt to wean the patient's norepinephrine. The patient did receive 3-1/2 L of fluid in the emergency room. Additional recommendations and suggestions are forthcoming. The patient's medications are reviewed. Prognosis is guarded given her age, and her poor memory of what happened. Time with Patient: Greater than 30
[2021-02-14] MEDS ORDERED: IPRATROPIUM-ALBUTEROL 3 ML NEB INHALATION PRN ×2 (15:52→17:38)
[2021-02-14] MEDS ORDERED: IPRATROPIUM-ALBUTEROL 3 ML NEB INHALATION SCH (16:00)
[2021-02-14] MEDS ORDERED: ALBUTEROL HFA INHALER INHALATION PRN (16:12)
[2021-02-14] MEDS: PIPERACILLIN-TAZOBACTAM 3.375 GM in SODIUM CHLORIDE 0.9% 100 ML IVPB SCH ×2 (17:24→23:21)
[2021-02-14] MEDS ORDERED: ALPRAZolam 0.25 MG TAB PO PRN (17:38)
[2021-02-14] MEDS ORDERED: MAGNESIUM HYDROXIDE 2,400 MG/10 ML CUP PO PRN (17:38)
[2021-02-14] MEDS ORDERED: BENZONATATE 100 MG CAP PO PRN (17:38)
[2021-02-14] MEDS ORDERED: BETAMETHASONE DIPROPIONATE 0.05% CREAM 15 GM TUBE TOPICAL PRN (17:38)
[2021-02-14] MEDS ORDERED: MECLIZINE 25 MG TAB PO PRN (17:38)
[2021-02-14] MEDS ORDERED: FUROSEMIDE 20 MG TAB PO PRN (17:38)
[2021-02-14 19:59] LABS: Glucose,Whole Blood 166 mg/dL (75-99)
[2021-02-14] MEDS ORDERED: IPRATROPIUM 0.5 MG/2.5 ML NEBU INHALATION SCH (20:00)
[2021-02-14] MEDS: BACLOFEN 10 MG TAB PO SCH (20:31)
[2021-02-14] MEDS: ATORVASTATIN 10 MG TAB PO SCH (20:31)
[2021-02-14] MEDS: GABAPENTIN 300 MG CAP PO SCH (20:31)
[2021-02-14] MEDS: DOCUSATE 100 MG CAP PO SCH (20:31)
[2021-02-14] MEDS: metFORMIN 500 MG TAB PO SCH (20:31)
[2021-02-14] MEDS: buPROPion SR 150 MG TABLET.ER PO SCH (20:32)
[2021-02-14] MEDS: risperiDONE 0.5 MG TAB PO SCH (20:32)
[2021-02-14] MEDS: guaiFENesin SYRUP 100MG/5ML 200 MG/10 ML CUP PO SCH (20:32)
[2021-02-14] MEDS: INSULIN ASPART (NovoLOG) 100 UNIT/ML VIAL SQ SCH (20:33)
[2021-02-14] MEDS: ALBUTEROL HFA INHALER INHALATION SCH (21:01)
[2021-02-14] MEDS: SYMBICORT 80-4.5 MCG INHALER INHALATION SCH (21:04)
[2021-02-15 05:30] LABS: Basophils % (A) 0 %; Eosinophils % (A) 0 %; HCT 31.5 % (34.0-46.0); HGB 9.9 gm/dL (11.4-16.0); Hypochromasia Slight; Lymphocytes # (A) 1.3 k/uL (1.0-4.8); Lymphocytes % (A) 8 %; MCH 28.7 pg (25.0-35.0); MCHC 31.4 g/dL (31.0-37.0); MCV 91.2 fL (80.0-100.0); Mean Platelet Volume 7.5; Monocytes # (A) 0.4 k/uL (0-1.0); Monocytes % (A) 3 %; Neutrophils # (A) 13.2 k/uL (1.3-7.7); Neutrophils % (A) 88 %; Platelet Count 299 k/uL (150-450); RBC 3.45 m/uL (3.80-5.40); WBC 15.1 k/uL (3.8-10.6)
[2021-02-15 05:35] LABS: ALT 85 U/L (4-34); AST 108 U/L (14-36); African American GFR (CKD) >90 (>60 ml/min/1.73 sqM); Albumin 2.7 g/dL (3.5-5.0); Alkaline Phosphatase 51 U/L (38-126); Anion Gap 9 mmol/L; Blood Urea Nitrogen 14 mg/dL (7-17); C Reactive Protein 70.9 mg/L (<10.0); Calcium 7.7 mg/dL (8.4-10.2); Carbon Dioxide 17 mmol/L (22-30); Chloride 107 mmol/L (98-107); Creatine Kinase 316 U/L (30-135); Glucose 86 mg/dL (74-99); LDH 670 U/L (313-618); Non-African American GFR(CKD) >90 (>60 ml/min/1.73 sqM); Sodium 133 mmol/L (137-145); Total Bilirubin 0.2 mg/dL (0.2-1.3); Total Protein 5.9 g/dL (6.3-8.2)
[2021-02-15 05:37] LABS: D-Dimer 3.7 mg/L FEU (<0.60)
[2021-02-15] MEDS: NOREPINEPHRINE 4 MG in SODIUM CHLORIDE 0.9% 250 ML IV SCH (05:52)
[2021-02-15 06:34] LABS: Glucose,Whole Blood 86 mg/dL (75-99)
--- NOTE | 2021-02-15 06:38 | CONS ---
CONSULTATION DATE OF SERVICE: 02/14/2021 REASON FOR CONSULTATION: Sepsis. HISTORY OF PRESENT ILLNESS: The patient is a 75-year-old female who is a [facility] resident. The patient has been brought into the ER after the [facility] staff called EMS for the patient currently responsive and she was noticed to be hypoxic with O2 sats of 80%. The patient did have a temperature of 103 degrees Fahrenheit. Apparently, the patient had episode of vomiting and there was question of aspiration. With these symptoms, the patient was rushed to [facility] ER. On arrival in the ER, the patient was febrile with a temperature of 101 degrees Fahrenheit. The patient was hypoxic requiring non-rebreather and also was hypotensive requiring a pressor support and at one time she did drop to 64/40 blood pressure. The patient did have a normal white count with lymphopenia. D-dimer is mildly elevated. Kidney function was normal. Liver enzymes are normal. Urine was negative. Schneider PCR came back positive. The patient did have a chest x-ray that was reported positive for right upper lung acute infiltrate with concern for possible aspiration. The patient has been started on Zosyn and admitted to the ICU as the patient did require pressor support. Infectious Disease was consulted for further management for antibiotic therapy. Most of the information has been obtained from reviewing the chart, talking to nursing staff as the patient was not a very good historian. No further vomiting has been reported. REVIEW OF SYSTEMS: Positive points have been mentioned in HPI. Rest of systems negative. PAST MEDICAL HISTORY: COPD, diabetes mellitus, hypertension, hypothyroidism, schizophrenia, depression. PAST SURGICAL HISTORY: No surgical history reported. SOCIAL HISTORY: Current everyday smoker. Does have a history of alcohol. No drug use. FAMILY HISTORY: No pertinent findings noticed. ALLERGIES: No known drug allergies. MEDICATIONS: The patient is currently on Zosyn, IV fluid, zinc, Protonix, Narcan, Glucophage, Antivert, Milk of Magnesia, Synthroid, NovoLog, Neurontin, Lasix, Lovenox, Decadron, Plavix, vitamin D3, Wellbutrin, vitamin C, Norvasc, Xanax. PHYSICAL EXAMINATION: VITAL SIGNS: Blood pressure 106/66 with a pulse of 63, temperature 98, T-max 101, she is 96% on high flow oxygen. GENERAL DESCRIPTION: Patient is an elderly female lying in bed in no distress. No tachypnea or accessory muscles of respiration use. HEENT: Examination shows no pallor or scleral icterus. Oral mucous membrane is dry. NECK: Trachea central, no thyromegaly. LUNGS: Unlabored breathing, decreased breath sounds at the bases. No wheeze or crackle. HEART: S1-S2, regular rate and rhythm. ABDOMEN: Soft, no tenderness. No guarding or rigidity. EXTREMITIES: No edema of the feet. SKIN: No rash or mass palpable. NEUROLOGICAL: Patient is . Orientation could not be determined. LABS: Hemoglobin is 10.3, white count 7.1. BUN of 15, creatinine 0.79. Electrolytes have been normal. Liver enzymes are normal. Urine was negative. Schneider PCR positive. Chest x-ray report as mentioned above. DIAGNOSTIC IMPRESSION AND PLAN: Patient admitted to the hospital with sepsis in this patient who did have a fever, tachycardia source likely pneumonia with mostly right-sided infiltrate, concern for possible aspiration etiology in this patient who also tested positive for COVID. Could be a combination of both viral as well as bacterial pneumonia. PLAN: 1. We will try to obtain sputum for Gram stain and culture. 2. We will obtain a procalcitonin, CRP level. 3. The patient to continue Zosyn 3.75 g q.8 hours. 4. Dexamethasone, Lovenox, zinc and ascorbic acid for underlying COVID-19 infection. 5. Droplet isolation and respiratory support. 6. We will follow on clinical condition and culture to further adjust medication if needed. Thank you for this consultation. Will follow this patient along with you. MMODL / IJN: [id number] /
[2021-02-15] MEDS: TIOTROPIUM 2.5 MCG INHALER INHALATION SCH (07:19)
[2021-02-15] MEDS: ALBUTEROL HFA INHALER INHALATION SCH ×4 (07:19→20:29)
[2021-02-15] MEDS ORDERED: NON FORMULARY DRUG (Vitamin B Complex [Vitamin B Complex] 1 EACH Capsule) PO SCH (08:00)
[2021-02-15] MEDS ORDERED: [UNRECOGNIZED DRUG - OTHER] PO SCH (08:00)
[2021-02-15] MEDS ORDERED: VITAMIN C PO SCH (08:00)
[2021-02-15] MEDS: INSULIN ASPART (NovoLOG) 100 UNIT/ML VIAL SQ SCH ×4 (08:42→20:35)
[2021-02-15] MEDS: amLODIPine 5 MG TAB PO SCH (08:51)
[2021-02-15] MEDS: GABAPENTIN 300 MG CAP PO SCH ×3 (08:53→20:36)
[2021-02-15] MEDS: BACLOFEN 10 MG TAB PO SCH ×2 (08:53→20:36)
[2021-02-15] MEDS: DOCUSATE 100 MG CAP PO SCH ×2 (08:53→20:36)
[2021-02-15] MEDS: guaiFENesin SYRUP 100MG/5ML 200 MG/10 ML CUP PO SCH ×2 (08:53→20:36)
[2021-02-15] MEDS: metFORMIN 500 MG TAB PO SCH ×2 (08:54→20:36)
[2021-02-15] MEDS: LEVOTHYROXINE 50 MCG TAB PO SCH (08:54)
[2021-02-15] MEDS: PIPERACILLIN-TAZOBACTAM 3.375 GM in SODIUM CHLORIDE 0.9% 100 ML IVPB SCH ×3 (08:54→23:14)
[2021-02-15] MEDS: polyethylene glycoL 3350 17 GM POWD.PACK PO SCH (08:54)
[2021-02-15] MEDS: ASCORBIC ACID 500 MG TAB PO SCH (08:55)
[2021-02-15] MEDS: CHOLECALCIFEROL 10 MCG (400 IU) TABLET PO SCH (08:55)
[2021-02-15] MEDS: DEXAMETHASONE SOD PHOSPHATE 10 MG/ML 1 ML VIAL IV SCH (08:55)
[2021-02-15] MEDS: ENOXAPARIN 40 MG/0.4 ML SYRINGE SQ SCH (08:55)
[2021-02-15] MEDS: risperiDONE 0.5 MG TAB PO SCH ×2 (08:55→20:36)
[2021-02-15] MEDS: CLOPIDOGREL 75 MG TAB PO SCH (08:55)
[2021-02-15] MEDS: ZINC SULFATE 220 MG CAP PO SCH (08:56)
[2021-02-15] MEDS: buPROPion SR 150 MG TABLET.ER PO SCH ×2 (08:56→20:36)
[2021-02-15] MEDS: PANTOPRAZOLE 40 MG/10 ML VIAL IV SCH (08:56)
[2021-02-15] MEDS ORDERED: CHOLECALCIFEROL 25 MCG (1000 IU) TABLET PO SCH (09:00)
[2021-02-15] MEDS ORDERED: dexAMETHasone 2 MG TAB PO SCH (09:00)
[2021-02-15] MEDS: SYMBICORT 80-4.5 MCG INHALER INHALATION SCH ×2 (10:59→20:29)
[2021-02-15 11:08] LABS: Glucose,Whole Blood 98 mg/dL (75-99)
--- NOTE | 2021-02-15 11:39 | XR ---
EXAMINATION TYPE: XR chest 1V portable DATE OF EXAM: 02/15/2021 COMPARISON: 02/14/2021 INDICATION: Assess lungs TECHNIQUE: Single frontal view of the chest is obtained. FINDINGS: The heart size is normal. The pulmonary vasculature is normal. Scattered infiltrates are present within the periphery of the right lung. This is worsening over the interval. Some subsegmental infiltrates may be present on the left. IMPRESSION: 1. Clinical correlation recommended for worsening atypical pneumonia greater within right lung but pr esent bilaterally
[2021-02-15 12:33] LABS: Ferritin 1489.8 ng/mL (10.0-291.0)
--- NOTE | 2021-02-15 12:41 | P.PN ---
Subjective Progress Note Date: 02/15/21 Principal diagnosis: CoVID 19 pneumonia 75-year-old female, who is brought into the emergency department by EMS, because of unresponsiveness. She apparently resides at a [facility], and according to EMS, who received information from the staff at the [facility], was apparently normal at 3 AM. When EMS arrived, she was unresponsive, had a Ovi Coma Scale of 4, and also had saturations which were in the 80s. She had an axial temperature of 103, and it appeared that she may have vomited and aspirated. The patient is seen today in the ICU. She is currently on a nonrebreather mask, but the nurses think they can get her down to 8 L high flow or less. The patient was tested for COVID, and tested positive. Currently, she is on norepinephrine at 7.3 mcg/m, saline at 100 mL an hour. She is a DO NOT RESUSCITATE, DO NOT INTUBATE patient. Apparently her son said that she he would agree to resuscitation with fluids, and vasopressors but nothing more aggressive than that. She herself, can give no additional history other than the fact that she states that she was sick for about 4 days. She is on a number different medications, all of which are listed in the ER lia. Apparently her past medical history includes COPD, diabetes, hypertension, hypothyroidism, as well as depression, schizophrenia, and ongoing tobacco abuse. White count is 7.1, hemoglobin 10.2, hematocrit 30.7, and platelet count 338,000. PT/INR and PTT are all normal. Sodium is a bit low at 128, potassium 4.5, chlorides 98, CO2 23, anion gap 7, BUN 15, and creatinine 0.79. Urine appears to be negative for urinary tract infection. Chest x-ray shows some bilateral infiltrates, more right than left-sided. This could be consistent with some mild fluid overload, and/or aspiration. The patient is seen today 02/15/2021 in follow-up in the intensive care unit. She is currently sitting up in bed. Awake and alert in no acute distress. She is on 10 L high flow nasal cannula maintaining O2 saturation low 90s. 0.9 normal saline at 100 ML's per hour. Antibiotics in the form of Zosyn. She has been off norepinephrine since approximately 8:00 last night. Chest x-ray continues to revealed bilateral infiltrates right greater than left. Blood cultures reveal no growth. White count 15.1. Hemoglobin 9.9. Lymphocytes 1.3. D-dimer 3.70. Sodium 133. Potassium 4.0. Creatinine 0.58. AST 108. ALT 85. LDH 670. C-reactive protein 70. She remains on Symbicort, Spiriva, albuterol, Decadron, Lovenox, vitamin supplements. Objective - Vital Signs Vital signs: Vital Signs Temp 97.6 F 02/15/21 08:00 Pulse 73 02/15/21 10:00 Resp 24 02/15/21 10:00 BP 114/64 02/15/21 10:00 Pulse Ox 97 02/15/21 10:00 Intake & Output 02/14/21 02/15/21 02/15/21 18:59 06:59 18:59 Intake Total 434.790 9366.105 400 Output Total 585 770 180 Balance 96.658 1223.105 220 Weight 81.647 kg 62.1 kg Intake: IV 600 1200 400 Sodium Chloride 0.9% 1, 600 1200 400 000 ml @ 100 mls/hr IV . Q10H [facility] Rx#:[id number] Intake, IV Titration 81.658 73.105 Amount Norepinephrine 4 mg In 12.702 Sodium Chloride 0.9% 250 ml @ 0.05 MCG/KG/MIN 15. 554 mls/hr IV .[id number] [facility] Rx#:[id number] Norepinephrine 4 mg In 68.956 73.105 Sodium Chloride 0.9% 250 ml @ 0.05 MCG/KG/MIN 15. 554 mls/hr IV .[id number] [facility] Rx#:[id number] Oral 720 Output: Urine 585 770 180 Other: Voiding Method Indwelling Catheter Indwelling Catheter Indwelling Catheter - Exam GENERAL EXAM: Alert, frail 75-year-old female patient, on 10 L high flow nasal cannula, comfortable in no apparent distress. HEAD: Normocephalic. EYES: Normal reaction of pupils, equal size. NOSE: Clear with pink turbinates. THROAT: No erythema or exudates. NECK: No masses, no JVD. CHEST: No chest wall deformity. LUNGS: Equal air entry with scattered rhonchi, crackles in the posterior bases right greater than left CVS: S1 and S2 normal with no audible murmur, regular rhythm. ABDOMEN: No hepatosplenomegaly, normal bowel sounds, no guarding or rigidity. SPINE: No scoliosis or deformity SKIN: No rashes CENTRAL NERVOUS SYSTEM: No focal deficits, tone is normal in all 4 extremities. EXTREMITIES: There is no peripheral edema. No clubbing, no cyanosis. Peripheral pulses are intact. - Labs CBC & Chem 7: 02/15/21 04:22 02/15/21 04:22 Labs: Abnormal Lab Results - Last 24 Hours (Table) 02/14/21 02/14/21 02/14/21 Range/Units 13:25 14:00 16:08 WBC (3.8-10.6) k/uL RBC (3.80-5.40) m/uL Hgb (11.4-16.0) gm/dL Hct (34.0-46.0) % RDW (11.5-15.5) % Neutrophils # (1.3-7.7) k/uL D-Dimer 2.09 H (<0.60) mg/L FEU Sodium (137-145) mmol/L Carbon Dioxide (22-30) mmol/L POC Glucose (mg/dL) 159 H (75-99) mg/dL Calcium (8.4-10.2) mg/dL AST (14-36) U/L ALT (4-34) U/L Lactate Dehydrogenase (313-618) U/L Creatine Kinase (30-135) U/L C-Reactive Protein (<10.0) mg/L Total Protein (6.3-8.2) g/dL Albumin (3.5-5.0) g/dL Urine Protein 1+ H (Negative) Amorphous Sediment Rare H (None) /hpf Urine Bacteria Rare H (None) /hpf Hyaline Casts 6 H (0-2) /lpf Urine Mucus Rare H (None) /hpf 02/14/21 02/15/21 02/15/21 Range/Units 19:57 04:22 04:22 WBC 15.1 H (3.8-10.6) k/uL RBC 3.45 L (3.80-5.40) m/uL Hgb 9.9 L (11.4-16.0) gm/dL Hct 31.5 L (34.0-46.0) % RDW 16.0 H (11.5-15.5) % Neutrophils # 13.2 H (1.3-7.7) k/uL D-Dimer (<0.60) mg/L FEU Sodium 133 L (137-145) mmol/L Carbon Dioxide 17 L (22-30) mmol/L POC Glucose (mg/dL) 166 H (75-99) mg/dL Calcium 7.7 L (8.4-10.2) mg/dL AST 108 H (14-36) U/L ALT 85 H (4-34) U/L Lactate Dehydrogenase 670 H (313-618) U/L Creatine Kinase 316 H (30-135) U/L C-Reactive Protein 70.9 H (<10.0) mg/L Total Protein 5.9 L (6.3-8.2) g/dL Albumin 2.7 L (3.5-5.0) g/dL Urine Protein (Negative) Amorphous Sediment (None) /hpf Urine Bacteria (None) /hpf Hyaline Casts (0-2) /lpf Urine Mucus (None) /hpf 02/15/ Range/Units 04:22 WBC (3.8-10.6) k/uL RBC (3.80-5.40) m/uL Hgb (11.4-16.0) gm/dL Hct (34.0-46.0) % RDW (11.5-15.5) % Neutrophils # (1.3-7.7) k/uL D-Dimer 3.70 H (<0.60) mg/L FEU Sodium (137-145) mmol/L Carbon Dioxide (22-30) mmol/L POC Glucose (mg/dL) (75-99) mg/dL Calcium (8.4-10.2) mg/dL AST (14-36) U/L ALT (4-34) U/L Lactate Dehydrogenase (313-618) U/L Creatine Kinase (30-135) U/L C-Reactive Protein (<10.0) mg/L Total Protein (6.3-8.2) g/dL Albumin (3.5-5.0) g/dL Urine Protein (Negative) Amorphous Sediment (None) /hpf Urine Bacteria (None) /hpf Hyaline Casts (0-2) /lpf Urine Mucus (None) /hpf Microbiology - Last 24 Hours (Table) 02/14/21 08:16 Blood Culture - Preliminary Blood No Growth after 24 hours 02/14/21 08:00 Blood Culture - Preliminary Blood No Growth after 24 hours Assessment and Plan Assessment: 1 Acute mental status changes, of unclear etiology. This may relate to aspiration pneumonia. 2 Acute hypoxic respiratory failure secondary to acute CoVID 19 pneumonia 3 Hypotension, which may relate to underlying sepsis. Recovered and off pressors 4 History of hyperlipidemia. 5 History of hypertension. 6 History of hypothyroidism. 7 Possible history of underlying COPD. 8 History of diabetes mellitus. 9 History of ongoing tobacco use with nicotine addiction. 10 History of depression and schizophrenia. Plan: The patient was seen and evaluated by Dr. Robbins Chest x-ray and labs reviewed She is cleared for transfer from the intensive care unit Titrate down the FiO2 as tolerated Repeat inflammatory markers in the a.m. We'll continue to follow I, the cosigning physician, performed a history & physical examination of the patient. Lungs sounds bilateral scattered rhonchi, crackles in the posterior bases right greater than left. Maintaining good O2 saturations in the 90s on 10 L high flow nasal cannula. I discussed the assessment and plan of care with my nurse practitioner, Sona Parker. I attest to the above note as dictated by her.
--- NOTE | 2021-02-15 12:43 | P.PN ---
Subjective Progress Note Date: 02/15/21 Sofía Leslie, is a 75-year-old female patient of Dr. Jacob who presented to [facility] emergency room with a chief complaint of being and responsive, patient was last seen at the nursing facility where she leaves at 3 AM, she was found in the morning and responsive EMS were called pulse ox was in the 80s, and temperature was 103 she was evaluated in the emergency room vital examination on arrival to emergency room reveals a temperature of 101.2 pulse 124 respiration 28 blood pressure 129/74 pulse ox 95% on nonrebreather mask at 15 L her white blood count was 7.1 hemoglobin 10.2 platelet count 338 sodium 128 glucose 187 AST and ALT normal BUN 15 creatinine 0.79 coronavirus PCR was positive. EKG was done in the emergency room and revealed sinus tachycardia with left anterior fascicular block and possible old septal infarct as evidenced by poor R-wave progression in the anterior leads. Chest x-ray revealed mild cardiomegaly with small bilateral pleural effusions, right upper lung and bybasilar acute infiltrates. Patient was admitted to intensive care unit pulmonary consultation was requested. Patient is unable to provide any information for review of system and past med ical history. From review of her chart, she has a past medical history of hypertension with hypertensive heart disease, history of hyperlipidemia, history of hypothyroidism, history of pulmonary hypertension, history of COPD, and history of diabetes Mellitus. On 02/15/2021 patient was seen and examined in the ICU she is alert slightly confused in no apparent distress she is complaining of nose congestion she stated that her shortness of breath is better she is still having occasional cough she is complaining of tenderness in the right heel area site of a small open ulcer, otherwise she denies any complaints there is no fever or chills no headache or dizziness no chest pain no nausea or vomiting no abdominal pain no diarrhea no blood in the stools and no urinary symptoms. Objective - Vital Signs Vital signs: Vital Signs Temp 97.8 F 02/15/21 04:00 Pulse 76 02/15/21 07:00 Resp 19 02/15/21 07:00 BP 118/73 02/15/21 07:00 Pulse Ox 97 02/15/21 07:00 Intake & Output 02/14/21 02/15/21 02/15/21 18:59 06:59 18:59 Intake Total 599.800 1612.105 100 Output Total 585 770 60 Balance 96.658 1223.105 40 Weight 81.647 kg 62.1 kg Intake: IV 600 1200 100 Sodium Chloride 0.9% 1, 600 1200 100 000 ml @ 100 mls/hr IV . Q10H [facility] Rx#:[id number] Intake, IV Titration 81.658 73.105 Amount Norepinephrine 4 mg In 12.702 Sodium Chloride 0.9% 250 ml @ 0.05 MCG/KG/MIN 15. 554 mls/hr IV .[id number] [facility] Rx#:[id number] Norepinephrine 4 mg In 68.956 73.105 Sodium Chloride 0.9% 250 ml @ 0.05 MCG/KG/MIN 15. 554 mls/hr IV .[id number] [facility] Rx#:[id number] Oral 720 Output: Urine 585 770 60 Other: Voiding Method Indwelling Catheter Indwelling Catheter - Exam In general patient is alert responsive in no apparent distress, currently she is maintained on oxygen 10 L high flow HEENT head normocephalic and atraumatic Neck is supple no JVD no goiter no lymphadenopathy Chest exam reveals coarse crackles in both lung conley with wheezing Cardiac exam reveals regular heart sounds S1 and S2 no gallops no murmurs Abdomen is soft nontender no organomegaly with normal bowel sounds Extremity exam reveals no edema no cyanosis or clubbing, there is a small ulcer on the lateral side of the right heel area with tenderness Neurological examination is limited but does not show any gross focal deficit - Labs CBC & Chem 7: 02/15/21 04:22 02/15/21 04:22 Labs: Abnormal Lab Results - Last 24 Hours (Table) 02/14/21 02/14/21 02/14/21 Range/Units 07:57 08:02 08:02 WBC (3.8-10.6) k/uL RBC 3.41 L (3.80-5.40) m/uL Hgb 10.2 L (11.4-16.0) gm/dL Hct 30.7 L (34.0-46.0) % RDW 15.9 H (11.5-15.5) % Neutrophils # (1.3-7.7) k/uL Lymphocytes # 0.5 L (1.0-4.8) k/uL D-Dimer (<0.60) mg/L FEU Sodium (137-145) mmol/L Carbon Dioxide (22-30) mmol/L Glucose (74-99) mg/dL POC Glucose (mg/dL) 190 H (75-99) mg/dL Calcium (8.4-10.2) mg/dL AST (14-36) U/L ALT (4-34) U/L Lactate Dehydrogenase (313-618) U/L Creatine Kinase (30-135) U/L C-Reactive Protein (<10.0) mg/L Total Protein (6.3-8.2) g/dL Albumin (3.5-5.0) g/dL Urine Protein (Negative) Urine Ketones (Negative) Amorphous Sediment (None) /hpf Urine Bacteria (None) /hpf Hyaline Casts (0-2) /lpf Urine Mucus (None) /hpf Coronavirus (PCR) Detected A (Not Detectd) 02/14/21 02/14/21 02/14/21 Range/Units 08:02 08:02 13:25 WBC (3.8-10.6) k/uL RBC (3.80-5.40) m/uL Hgb (11.4-16.0) gm/dL Hct (34.0-46.0) % RDW (11.5-15.5) % Neutrophils # (1.3-7.7) k/uL Lymphocytes # (1.0-4.8) k/uL D-Dimer (<0.60) mg/L FEU Sodium 128 L (137-145) mmol/L Carbon Dioxide (22-30) mmol/L Glucose 187 H (74-99) mg/dL POC Glucose (mg/dL) 159 H (75-99) mg/dL Calcium 8.1 L (8.4-10.2) mg/dL AST (14-36) U/L ALT (4-34) U/L Lactate Dehydrogenase (313-618) U/L Creatine Kinase (30-135) U/L C-Reactive Protein (<10.0) mg/L Total Protein (6.3-8.2) g/dL Albumin 3.1 L (3.5-5.0) g/dL Urine Protein 1+ H (Negative) Urine Ketones Trace H (Negative) Amorphous Sediment (None) /hpf Urine Bacteria (None) /hpf Hyaline Casts (0-2) /lpf Urine Mucus Rare H (None) /hpf Coronavirus (PCR) (Not Detectd) 02/14/21 02/14/21 02/14/21 Range/Units 14:00 16:08 19:57 WBC (3.8-10.6) k/uL RBC (3.80-5.40) m/uL Hgb (11.4-16.0) gm/dL Hct (34.0-46.0) % RDW (11.5-15.5) % Neutrophils # (1.3-7.7) k/uL Lymphocytes # (1.0-4.8) k/uL D-Dimer 2.09 H (<0.60) mg/L FEU Sodium (137-145) mmol/L Carbon Dioxide (22-30) mmol/L Glucose (74-99) mg/dL POC Glucose (mg/dL) 166 H (75-99) mg/dL Calcium (8.4-10.2) mg/dL AST (14-36) U/L ALT (4-34) U/L Lactate Dehydrogenase (313-618) U/L Creatine Kinase (30-135) U/L C-Reactive Protein (<10.0) mg/L Total Protein (6.3-8.2) g/dL Albumin (3.5-5.0) g/dL Urine Protein 1+ H (Negative) Urine Ketones (Negative) Amorphous Sediment Rare H (None) /hpf Urine Bacteria Rare H (None) /hpf Hyaline Casts 6 H (0-2) /lpf Urine Mucus Rare H (None) /hpf Coronavirus (PCR) (Not Detectd) 02/15/21 02/15/21 02/15/21 Range/Units 04:22 04:22 04:22 WBC 15.1 H (3.8-10.6) k/uL RBC 3.45 L (3.80-5.40) m/uL Hgb 9.9 L (11.4-16.0) gm/dL Hct 31.5 L (34.0-46.0) % RDW 16.0 H (11.5-15.5) % Neutrophils # 13.2 H (1.3-7.7) k/uL Lymphocytes # (1.0-4.8) k/uL D-Dimer 3.70 H (<0.60) mg/L FEU Sodium 133 L (137-145) mmol/L Carbon Dioxide 17 L (22-30) mmol/L Glucose (74-99) mg/dL POC Glucose (mg/dL) (75-99) mg/dL Calcium 7.7 L (8.4-10.2) mg/dL AST 108 H (14-36) U/L ALT 85 H (4-34) U/L Lactate Dehydrogenase 670 H (313-618) U/L Creatine Kinase 316 H (30-135) U/L C-Reactive Protein 70.9 H (<10.0) mg/L Total Protein 5.9 L (6.3-8.2) g/dL Albumin 2.7 L (3.5-5.0) g/dL Urine Protein (Negative) Urine Ketones (Negative) Amorphous Sediment (None) /hpf Urine Bacteria (None) /hpf Hyaline Casts (0-2) /lpf Urine Mucus (None) /hpf Coronavirus (PCR) (Not Detectd) Assessment and Plan Plan: Acute Covid 19 infection with evidence of multifocal pneumonia Acute hypoxic respiratory failure Underlying history of hypertension Underlying history of hyperlipidemia Underlying history of hypothyroidism Underlying history of pulmonary hypertension Underlying history of hypertensive heart disease Underlying history of schizophrenia, major depression, and paranoid personality disorder per chart Small ulcer on the lateral side of the right heel area with tenderness Will consult vascular surgery for possible debridement Patient is admitted to intensive care unit She was started on IV dexamethasone and subcu Lovenox She was started on norepinephrine drip She was given a dose of IV Rocephin 2 g in the emergency room Pulmonary critical care consultation and infectious disease requested requested Patient is unable to provide any information, all past medical history is derived from review of her chart
[2021-02-15] MEDS: SODIUM CHLORIDE 0.9% 1,000 ML IV SCH ×2 (15:36→20:35)
[2021-02-15] MEDS: FLUTICASONE 50MCG/SPRAY NASAL 16GM EA NOSTRIL SCH (15:37)
[2021-02-15 16:47] LABS: Glucose,Whole Blood 113 mg/dL (75-99)
--- NOTE | 2021-02-15 17:32 | PN ---
PROGRESS NOTE DATE OF SERVICE: 02/15/2021. REASON FOR FOLLOWUP: Pneumonia. INTERVAL HISTORY: Patient is currently afebrile. The patient is more awake and alert. The patient is breathing comfortably. Patient denies having any chest pain or shortness of breath. Patient did have some cough but not bringing up any sputum. No nausea, no vomiting. No abdominal pain, no diarrhea. PHYSICAL EXAMINATION: Blood pressure 114/54, pulse of 73, temperature 97.6, she is 95% on 10 L high-flow oxygen. GENERAL DESCRIPTION: An elderly female lying in bed in no distress. RESPIRATORY SYSTEM: Unlabored breathing, decreased intensity of breath sounds, no wheeze. HEART: S1, S2. Regular rate and rhythm. ABDOMEN: Soft, no tenderness. LABS: Hemoglobin 9.1, white count 15.1, BUN of 14, creatinine 0.58. Blood culture has been negative so far. DIAGNOSTIC IMPRESSION AND PLAN: Patient with pneumonia related to COVID-19. Underlying aspiration less likely but not entirely excluded. Patient seemed to have responded to current protocol of Zosyn, zinc, Lovenox, dexamethasone to continue. Monitor clinical course closely. Continue supportive care negative. MMODL / IJN: [id number] /
[2021-02-15 20:32] LABS: Glucose,Whole Blood 173 mg/dL (75-99)
[2021-02-15] MEDS: ATORVASTATIN 10 MG TAB PO SCH (20:36)
[2021-02-16 04:04] LABS: Anisocytosis Slight; Basophils % (A) 0 %; Eosinophils % (A) 0 %; HCT 29.6 % (34.0-46.0); HGB 9.6 gm/dL (11.4-16.0); Lymphocytes # (A) 0.5 k/uL (1.0-4.8); Lymphocytes % (A) 6 %; MCH 29.1 pg (25.0-35.0); MCHC 32.4 g/dL (31.0-37.0); MCV 89.6 fL (80.0-100.0); Mean Platelet Volume 7.5; Monocytes # (A) 0.3 k/uL (0-1.0); Monocytes % (A) 3 %; Neutrophils # (A) 8.1 k/uL (1.3-7.7); Neutrophils % (A) 90 %; Platelet Count 290 k/uL (150-450)
[2021-02-16 04:16] LABS: ALT 262 U/L (4-34); AST 265 U/L (14-36); African American GFR (CKD) >90 (>60 ml/min/1.73 sqM); Albumin 2.7 g/dL (3.5-5.0); Alkaline Phosphatase 57 U/L (38-126); Anion Gap 5 mmol/L; Blood Urea Nitrogen 13 mg/dL (7-17); Carbon Dioxide 19 mmol/L (22-30); Chloride 108 mmol/L (98-107); Glucose 90 mg/dL (74-99); Non-African American GFR(CKD) 89 (>60 ml/min/1.73 sqM); Potassium 3.8 mmol/L (3.5-5.1); Sodium 132 mmol/L (137-145); Total Bilirubin 0.3 mg/dL (0.2-1.3); Total Protein 5.9 g/dL (6.3-8.2)
[2021-02-16 06:40] LABS: Glucose,Whole Blood 108 mg/dL (75-99)
[2021-02-16] MEDS: SODIUM CHLORIDE 0.9% 1,000 ML IV SCH ×2 (06:45→16:41)
[2021-02-16] MEDS: INSULIN ASPART (NovoLOG) 100 UNIT/ML VIAL SQ SCH ×4 (06:57→20:14)
[2021-02-16] MEDS: ALBUTEROL HFA INHALER INHALATION SCH ×4 (08:10→20:16)
[2021-02-16] MEDS: SYMBICORT 80-4.5 MCG INHALER INHALATION SCH ×2 (08:11→20:16)
[2021-02-16] MEDS: TIOTROPIUM 2.5 MCG INHALER INHALATION SCH (08:11)
[2021-02-16] MEDS: polyethylene glycoL 3350 17 GM POWD.PACK PO SCH (08:36)
[2021-02-16] MEDS: PIPERACILLIN-TAZOBACTAM 3.375 GM in SODIUM CHLORIDE 0.9% 100 ML IVPB SCH ×3 (09:05→23:29)
[2021-02-16] MEDS: metFORMIN 500 MG TAB PO SCH ×2 (09:05→19:48)
[2021-02-16] MEDS: DEXAMETHASONE SOD PHOSPHATE 10 MG/ML 1 ML VIAL IV SCH (09:05)
[2021-02-16] MEDS: ENOXAPARIN 40 MG/0.4 ML SYRINGE SQ SCH (09:05)
[2021-02-16] MEDS: PANTOPRAZOLE 40 MG/10 ML VIAL IV SCH (09:05)
[2021-02-16] MEDS: GABAPENTIN 300 MG CAP PO SCH ×3 (09:06→19:42)
[2021-02-16] MEDS: CHOLECALCIFEROL 10 MCG (400 IU) TABLET PO SCH (09:06)
[2021-02-16] MEDS: BACLOFEN 10 MG TAB PO SCH ×2 (09:06→19:48)
[2021-02-16] MEDS: CLOPIDOGREL 75 MG TAB PO SCH (09:06)
[2021-02-16] MEDS: LEVOTHYROXINE 50 MCG TAB PO SCH (09:06)
[2021-02-16] MEDS: amLODIPine 5 MG TAB PO SCH (09:06)
[2021-02-16] MEDS: risperiDONE 0.5 MG TAB PO SCH ×2 (09:06→19:47)
[2021-02-16] MEDS: ZINC SULFATE 220 MG CAP PO SCH (09:07)
[2021-02-16] MEDS: buPROPion SR 150 MG TABLET.ER PO SCH ×2 (09:07→19:48)
[2021-02-16] MEDS: DOCUSATE 100 MG CAP PO SCH ×2 (09:07→19:48)
[2021-02-16] MEDS: guaiFENesin SYRUP 100MG/5ML 200 MG/10 ML CUP PO SCH ×2 (09:07→19:48)
[2021-02-16] MEDS: ASCORBIC ACID 500 MG TAB PO SCH (09:07)
[2021-02-16] MEDS: FLUTICASONE 50MCG/SPRAY NASAL 16GM EA NOSTRIL SCH (09:08)
--- NOTE | 2021-02-16 10:40 | P.PN ---
Subjective Progress Note Date: 02/16/21 Sofía Leslie, is a 75-year-old female patient of Dr. Jacob who presented to [facility] emergency room with a chief complaint of being and responsive, patient was last seen at the nursing facility where she leaves at 3 AM, she was found in the morning and responsive EMS were called pulse ox was in the 80s, and temperature was 103 she was evaluated in the emergency room vital examination on arrival to emergency room reveals a temperature of 101.2 pulse 124 respiration 28 blood pressure 129/74 pulse ox 95% on nonrebreather mask at 15 L her white blood count was 7.1 hemoglobin 10.2 platelet count 338 sodium 128 glucose 187 AST and ALT normal BUN 15 creatinine 0.79 coronavirus PCR was positive. EKG was done in the emergency room and revealed sinus tachycardia with left anterior fascicular block and possible old septal infarct as evidenced by poor R-wave progression in the anterior leads. Chest x-ray revealed mild cardiomegaly with small bilateral pleural effusions, right upper lung and bybasilar acute infiltrates. Patient was admitted to intensive care unit pulmonary consultation was requested. Patient is unable to provide any information for review of system and past med ical history. From review of her chart, she has a past medical history of hypertension with hypertensive heart disease, history of hyperlipidemia, history of hypothyroidism, history of pulmonary hypertension, history of COPD, and history of diabetes Mellitus. On 02/15/2021 patient was seen and examined in the ICU she is alert slightly confused in no apparent distress she is complaining of nose congestion she stated that her shortness of breath is better she is still having occasional cough she is complaining of tenderness in the right heel area site of a small open ulcer, otherwise she denies any complaints there is no fever or chills no headache or dizziness no chest pain no nausea or vomiting no abdominal pain no diarrhea no blood in the stools and no urinary symptoms. On 02/16/2021 patient was seen and examined in the ICU she is alert and oriented 3 in no apparent distress she is complaining of abdominal discomfort mostly in the epigastric area she is still complaining of cough and shortness of breath otherwise she denies any complaints there is no fever or chills no headache or dizziness no chest pain no nausea or vomiting no diarrhea no blood in the stools no burning with urination no frequency or urgency and no hematuria. Liver enzymes are significantly elevated today. Objective - Vital Signs Vital signs: Vital Signs Temp 102.4 F H 02/16/21 08:00 Pulse 102 H 02/16/21 08:00 Resp 20 02/16/21 08:00 BP 138/84 02/16/21 08:00 Pulse Ox 93 L 02/16/21 08:00 Intake & Output 02/15/21 02/16/21 02/16/21 18:59 06:59 18:59 Intake Total 400 950 Output Total 180 Balance 220 950 Weight 62.1 kg 66 kg Intake: IV 400 700 Sodium Chloride 0.9% 1, 400 700 000 ml @ 100 mls/hr IV . Q10H [facility] Rx#:[id number] Oral 250 Output: Urine 180 Other: Voiding Method Indwelling Catheter Bedpan # Voids 1 # Bowel Movements 1 1 - Exam In general patient is alert responsive in no apparent distress, currently she is maintained on oxygen 10 L high flow HEENT head normocephalic and atraumatic Neck is supple no JVD no goiter no lymphadenopathy Chest exam reveals coarse crackles in both lung conley with wheezing Cardiac exam reveals regular heart sounds S1 and S2 no gallops no murmurs Abdomen is soft nontender no organomegaly with normal bowel sounds Extremity exam reveals no edema no cyanosis or clubbing, there is a small ulcer on the lateral side of the right heel area with tenderness Neurological examination is limited but does not show any gross focal deficit - Labs CBC & Chem 7: 02/16/21 03:24 02/16/21 03:24 Labs: Abnormal Lab Results - Last 24 Hours (Table) 02/15/21 02/15/21 02/15/21 Range/Units 04:22 16:45 20:29 RBC (3.80-5.40) m/uL Hgb (11.4-16.0) gm/dL Hct (34.0-46.0) % RDW (11.5-15.5) % Neutrophils # (1.3-7.7) k/uL Lymphocytes # (1.0-4.8) k/uL Sodium (137-145) mmol/L Chloride (98-107) mmol/L Carbon Dioxide (22-30) mmol/L POC Glucose (mg/dL) 113 H 173 H (75-99) mg/dL Calcium (8.4-10.2) mg/dL Ferritin 1489.8 H (10.0-291.0) ng/mL AST (14-36) U/L ALT (4-34) U/L Total Protein (6.3-8.2) g/dL Albumin (3.5-5.0) g/dL 02/16/21 02/16/21 02/16/21 Range/Units 03:24 03:24 06:39 RBC 3.30 L (3.80-5.40) m/uL Hgb 9.6 L (11.4-16.0) gm/dL Hct 29.6 L (34.0-46.0) % RDW 16.0 H (11.5-15.5) % Neutrophils # 8.1 H (1.3-7.7) k/uL Lymphocytes # 0.5 L (1.0-4.8) k/uL Sodium 132 L (137-145) mmol/L Chloride 108 H (98-107) mmol/L Carbon Dioxide 19 L (22-30) mmol/L POC Glucose (mg/dL) 108 H (75-99) mg/dL Calcium 8.0 L (8.4-10.2) mg/dL Ferritin (10.0-291.0) ng/mL AST 265 H (14-36) U/L ALT 262 H (4-34) U/L Total Protein 5.9 L (6.3-8.2) g/dL Albumin 2.7 L (3.5-5.0) g/dL Microbiology - Last 24 Hours (Table) 02/14/21 08:16 Blood Culture - Preliminary Blood No Growth after 24 hours 02/14/21 08:00 Blood Culture - Preliminary Blood No Growth after 24 hours Assessment and Plan Plan: Acute Covid 19 infection with evidence of multifocal pneumonia Acute hypoxic respiratory failure Underlying history of hypertension Underlying history of hyperlipidemia Underlying history of hypothyroidism Underlying history of pulmonary hypertension Underlying history of hypertensive heart disease Underlying history of schizophrenia, major depression, and paranoid personality disorder per chart Small ulcer on the lateral side of the right heel area with tenderness Will consult vascular surgery for possible debridement Elevated liver enzymes will stop Lipitor at this time will check liver ultrasound and monitor closely Patient is admitted to intensive care unit She was started on IV dexamethasone and subcu Lovenox She was started on norepinephrine drip She was given a dose of IV Rocephin 2 g in the emergency room Pulmonary critical care consultation and infectious disease requested requested Patient is unable to provide any information, all past medical history is derived from review of her chart
[2021-02-16 11:04] LABS: Glucose,Whole Blood 125 mg/dL (75-99)
--- NOTE | 2021-02-16 12:13 | US ---
EXAMINATION TYPE: US liver DATE OF EXAM: 02/16/2021 COMPARISON: 10/25/2020 CLINICAL HISTORY: abdominal pain, elevated liver enzymes. Covid ICU with elevated labs and abd pain EXAM MEASUREMENTS: Liver Length: 18.5 cm. Normal 15.5 cm Gallbladder Wall: 1.5 cm , markedly thickened. Normal less than 0.3 cm. CBD: 1.0 cm. Dilated, normal less than 0.7 cm. Right Kidney: 11.9 x 4.7 x 4.4 cm Pancreas: wnl Liver: Hepatomegaly Gallbladder: grossly thickened wall with fluid Evidence for sonographic Finnegan's sign: no CBD: dilated with no obvious sign of obstruction Right Kidney: wnl IMPRESSION: 1. Clinical correlation recommended for cholecystitis. 2. Hepatomegaly
--- NOTE | 2021-02-16 13:12 | P.PN ---
Subjective Progress Note Date: 02/16/21 Principal diagnosis: CoVID 19 pneumonia 75-year-old female, who is brought into the emergency department by EMS, because of unresponsiveness. She apparently resides at a senior living, and according to EMS, who received information from the staff at the senior living, was apparently normal at 3 AM. When EMS arrived, she was unresponsive, had a Ovi Coma Scale of 4, and also had saturations which were in the 80s. She had an axial temperature of 103, and it appeared that she may have vomited and aspirated. The patient is seen today in the ICU. She is currently on a nonrebreather mask, but the nurses think they can get her down to 8 L high flow or less. The patient was tested for COVID, and tested positive. Currently, she is on norepinephrine at 7.3 mcg/m, saline at 100 mL an hour. She is a DO NOT RESUSCITATE, DO NOT INTUBATE patient. Apparently her son said that she he would agree to resuscitation with fluids, and vasopressors but nothing more aggressive than that. She herself, can give no additional history other than the fact that she states that she was sick for about 4 days. She is on a number different medications, all of which are listed in the ER lia. Apparently her past medical history includes COPD, diabetes, hypertension, hypothyroidism, as well as depression, schizophrenia, and ongoing tobacco abuse. White count is 7.1, hemoglobin 10.2, hematocrit 30.7, and platelet count 338,000. PT/INR and PTT are all normal. Sodium is a bit low at 128, potassium 4.5, chlorides 98, CO2 23, anion gap 7, BUN 15, and creatinine 0.79. Urine appears to be negative for urinary tract infection. Chest x-ray shows some bilateral infiltrates, more right than left-sided. This could be consistent with some mild fluid overload, and/or aspiration. The patient is seen today 02/15/2021 in follow-up in the intensive care unit. She is currently sitting up in bed. Awake and alert in no acute distress. She is on 10 L high flow nasal cannula maintaining O2 saturation low 90s. 0.9 normal saline at 100 ML's per hour. Antibiotics in the form of Zosyn. She has been off norepinephrine since approximately 8:00 last night. Chest x-ray continues to revealed bilateral infiltrates right greater than left. Blood cultures reveal no growth. White count 15.1. Hemoglobin 9.9. Lymphocytes 1.3. D-dimer 3.70. Sodium 133. Potassium 4.0. Creatinine 0.58. AST 108. ALT 85. LDH 670. C-reactive protein 70. She remains on Symbicort, Spiriva, albuterol, Decadron, Lovenox, vitamin supplements. The patient is seen today 02/16/2021 in follow-up in the intensive care unit. She is currently sitting up in bed. A bit more awake and alert today compared to yesterday. Her oxygen requirements increased from 8-10 L high flow nasal cannula. Temp 102.4. Blood culture reveals no growth to date. White count 9.0. He will the 9.6. Lymphocytes 0.5. Sodium 12. Potassium 3.8. Creatinine 0.59. AST 265. ALT 262. Ultrasound of the liver reveals hepatomegaly. Clinical correlation recommended for cholecystitis with grossly thickened wall with fluid of the gallbladder. She remains on Symbicort, DuoNeb inhalations, methicillin, Lovenox, vitamin supplements. Objective - Vital Signs Vital signs: Vital Signs Temp 99.7 F H 02/16/21 12:00 Pulse 102 H 02/16/21 08:00 Resp 20 02/16/21 08:00 BP 138/84 02/16/21 08:00 Pulse Ox 93 L 02/16/21 08:00 Intake & Output 02/15/21 02/16/21 02/16/21 18:59 06:59 18:59 Intake Total 400 950 850 Output Total 180 100 Balance 220 950 750 Weight 62.1 kg 66 kg Intake: IV 400 700 600 Sodium Chloride 0.9% 1, 400 700 600 000 ml @ 100 mls/hr IV . Q10H [facility] Rx#:[id number] Oral 250 250 Output: Urine 180 100 Other: Voiding Method Indwelling Catheter Bedpan External Catheter # Voids 1 # Bowel Movements 1 1 - Exam GENERAL EXAM: Alert, frail 75-year-old female patient, on 10 L high flow nasal cannula, comfortable in no apparent distress. HEAD: Normocephalic. EYES: Normal reaction of pupils, equal size. NOSE: Clear with pink turbinates. THROAT: No erythema or exudates. NECK: No masses, no JVD. CHEST: No chest wall deformity. LUNGS: Equal air entry with scattered rhonchi, crackles in the posterior bases right greater than left CVS: S1 and S2 normal with no audible murmur, regular rhythm. ABDOMEN: No hepatosplenomegaly, normal bowel sounds, no guarding or rigidity. SPINE: No scoliosis or deformity SKIN: No rashes CENTRAL NERVOUS SYSTEM: No focal deficits, tone is normal in all 4 extremities. EXTREMITIES: There is no peripheral edema. No clubbing, no cyanosis. Peripheral pulses are intact. - Labs CBC & Chem 7: 02/16/21 03:24 02/16/21 03:24 Labs: Abnormal Lab Results - Last 24 Hours (Table) 02/15/21 02/15/21 02/16/21 Range/Units 16:45 20:29 03:24 RBC 3.30 L (3.80-5.40) m/uL Hgb 9.6 L (11.4-16.0) gm/dL Hct 29.6 L (34.0-46.0) % RDW 16.0 H (11.5-15.5) % Neutrophils # 8.1 H (1.3-7.7) k/uL Lymphocytes # 0.5 L (1.0-4.8) k/uL Sodium (137-145) mmol/L Chloride (98-107) mmol/L Carbon Dioxide (22-30) mmol/L POC Glucose (mg/dL) 113 H 173 H (75-99) mg/dL Calcium (8.4-10.2) mg/dL AST (14-36) U/L ALT (4-34) U/L Total Protein (6.3-8.2) g/dL Albumin (3.5-5.0) g/dL 02/16/21 02/16/21 02/16/21 Range/Units 03:24 06:39 11:03 RBC (3.80-5.40) m/uL Hgb (11.4-16.0) gm/dL Hct (34.0-46.0) % RDW (11.5-15.5) % Neutrophils # (1.3-7.7) k/uL Lymphocytes # (1.0-4.8) k/uL Sodium 132 L (137-145) mmol/L Chloride 108 H (98-107) mmol/L Carbon Dioxide 19 L (22-30) mmol/L POC Glucose (mg/dL) 108 H 125 H (75-99) mg/dL Calcium 8.0 L (8.4-10.2) mg/dL AST 265 H (14-36) U/L ALT 262 H (4-34) U/L Total Protein 5.9 L (6.3-8.2) g/dL Albumin 2.7 L (3.5-5.0) g/dL Microbiology - Last 24 Hours (Table) 02/14/21 08:16 Blood Culture - Preliminary Blood No Growth after 48 hours 02/14/21 08:00 Blood Culture - Preliminary Blood No Growth after 48 hours Assessment and Plan Assessment: 1 Acute mental status changes, of unclear etiology. This may relate to aspiration pneumonia. 2 Acute hypoxic respiratory failure secondary to acute CoVID 19 pneumonia 3 Hypotension, which may relate to underlying sepsis. Recovered and off pressors 4 History of hyperlipidemia. 5 History of hypertension. 6 History of hypothyroidism. 7 Possible history of underlying COPD. 8 History of diabetes mellitus. 9 History of ongoing tobacco use with nicotine addiction. 10 History of depression and schizophrenia. Plan: The patient was seen and evaluated by Dr. Robbins She is cleared for transfer to the regular medical floor Titrate down the FiO2 as tolerated We'll continue to follow I, the cosigning physician, performed a history & physical examination of the patient. Lungs sounds bilateral scattered rhonchi, crackles in the posterior bases right greater than left. Maintaining good O2 saturations in the 90s on 10 L high flow nasal cannula. I discussed the assessment and plan of care with my nurse practitioner, Sona Parker. I attest to the above note as dictated by her.
[2021-02-16 16:33] LABS: Glucose,Whole Blood 183 mg/dL (75-99)
[2021-02-16 20:01] LABS: Glucose,Whole Blood 143 mg/dL (75-99)
--- NOTE | 2021-02-16 21:39 | P.GSCN ---
History of Present Illness Consult date: 02/16/21 Reason for Consult: right lateral foot ulcer History of present illness: 75 year old female currently being treated for COVID pneumonia in the ICU was found to have a wound on the lateral aspect of her right foot. She does have a history of DM and states she has had this wound for a little while but hasn't been seeing a physician for any treatments. Review of Systems All systems: negative (what is mentioned in the HPI and PMH) Past Medical History Past Medical History: COPD, Diabetes Mellitus, Hypertension, Thyroid Disorder Additional Past Medical History / Comment(s): Musclespasms, Fracture R Radius, Fracture Nasal Bones History of Any Multi-Drug Resistant Organisms: None Reported Past Surgical History: No Surgical Hx Reported Past Anesthesia/Blood Transfusion Reactions: No Reported Reaction Past Psychological History: Depression, Schizophrenia Additional Psychological History / Comment(s): SEVERELY PARANOID Smoking Status: Current every day smoker Past Alcohol Use History: Abuse Past Drug Use History: None Reported - Past Family History Father History Unknown: Yes Medications and Allergies Home Medications Medication Instructions Recorded Confirmed Type ALPRAZolam [Xanax] 0.25 mg PO TID PRN 06/15/20 02/14/21 History Baclofen 10 mg PO BID@0800,199906/15/20 02/14/21 History Betamethasone Dipropionate 1 applic TOPICAL BID PRN 06/15/20 02/14/21 History [Diprolene AF 0.05% Cream] Carbamide Peroxide [Debrox Otic] 5 drops BOTH EARS DAILY PRN 06/15/20 02/14/21 History Docusate [Colace] 100 mg PO BID@0800,199906/15/20 02/14/21 History Fluticasone/Umeclidin/Vilanter 1 puff INHALATION RT-DAILY@199906/15/20 02/14/21 History [Trelegy Ellipta 100-62.5-25] Gabapentin [Neurontin] 300 mg PO TID@0800,1300,199906/15/20 02/14/21 History Ipratropium-Albuterol Nebulize 3 ml INHALATION RT-QID PRN 06/15/20 02/14/21 History [Duoneb 0.5 mg-3 mg/3 ml Soln] Levothyroxine Sodium [Synthroid] 50 mcg PO DAILY@0800 06/15/20 02/14/21 History Magnesium Hydroxide [Milk of 2,400 mg PO DAILY PRN 06/15/20 02/14/21 History Magnesia] Meclizine HCl 25 mg PO BID PRN 06/15/20 02/14/21 History Mupirocin 2% Oint [Bactroban 2% 1 applic TOPICAL TID PRN 06/15/20 02/14/21 History Oint] Simvastatin [Zocor] 20 mg PO DAILY@199906/15/20 02/14/21 History Vitamin B Complex 1 tab PO DAILY@0806/15/20 02/14/21 History amLODIPine [Norvasc] 5 mg PO DAILY@0806/15/20 02/14/21 History buPROPion HCL [Wellbutrin SR] 150 mg PO BID@08,199906/15/20 02/14/21 History guaiFENesin [guaiFENesin Oral 200 mg PO BID@08,199906/15/20 02/14/21 History Solution] metFORMIN HCL ER [Glucophage Xr] 500 mg PO HS@199906/15/20 02/14/21 History polyethylene glycoL 3350 [Miralax] 17 gm PO DAILY@0806/15/20 02/14/21 History risperiDONE 1.5 mg PO BID@799,199906/15/20 02/14/21 History Acetaminophen Tab [Tylenol] 500 - 1,000 mg PO Q8H PRN 10/21/20 02/14/21 History Theraworx Relief 1 pump TOPICAL BID PRN 10/21/20 02/14/21 History Benzonatate [Tessalon Perles] 100 mg PO TID PRN cap 11/07/20 02/14/21 Rx Cholecalciferol [Vitamin D3 (10 400 unit PO DAILY tab 11/07/20 02/14/21 Rx Mcg = 400 Iu)] Clopidogrel [Plavix] 75 mg PO DAILY tab 11/07/20 02/14/21 Rx Furosemide [Lasix] 20 mg PO DAILY PRN tab 11/07/20 02/14/21 Rx Vitamin C 1000mg/Zinc 15mg 1 tab PO DAILY@0800 02/14/21 02/14/21 History Allergies Allergy/AdvReac Type Severity Reaction Status Date / Time No Known Allergies Allergy Verified 02/14/21 08:21 Surgical - Exam Vital Signs Temp Pulse Resp BP Pulse Ox 101.2 F H 124 H 28 H 129/74 95 02/14/21 07:52 02/14/21 07:52 02/14/21 07:52 02/14/21 07:52 02/14/21 07:52 [id number] right lateral foot diabetic ulcer with good granulation tissue at the base. No bleeding, or drainage. Palpable femoral, popliteal and DP pulses bilaterally. - General no pain, chronically ill - Eyes PERRL - ENT normal pinna, normal nares - Neck no masses - Respiratory No retractions - Cardiovascular Rhythm: regular - Abdomen Abdomen: soft, non tender - Integumentary no rash, no growths - Psychiatric oriented to person Results - Labs 02/16/21 03:24 02/16/21 03:24 Abnormal Lab Results - Last 24 Hours (Table) 02/16/21 02/16/21 02/16/21 Range/Units 03:24 03:24 06:39 RBC 3.30 L (3.80-5.40) m/uL Hgb 9.6 L (11.4-16.0) gm/dL Hct 29.6 L (34.0-46.0) % RDW 16.0 H (11.5-15.5) % Neutrophils # 8.1 H (1.3-7.7) k/uL Lymphocytes # 0.5 L (1.0-4.8) k/uL Sodium 132 L (137-145) mmol/L Chloride 108 H (98-107) mmol/L Carbon Dioxide 19 L (22-30) mmol/L POC Glucose (mg/dL) 108 H (75-99) mg/dL Calcium 8.0 L (8.4-10.2) mg/dL AST 265 H (14-36) U/L ALT 262 H (4-34) U/L Total Protein 5.9 L (6.3-8.2) g/dL Albumin 2.7 L (3.5-5.0) g/dL 02/16/21 02/16/21 02/16/21 Range/Units 11:03 16:32 19:59 RBC (3.80-5.40) m/uL Hgb (11.4-16.0) gm/dL Hct (34.0-46.0) % RDW (11.5-15.5) % Neutrophils # (1.3-7.7) k/uL Lymphocytes # (1.0-4.8) k/uL Sodium (137-145) mmol/L Chloride (98-107) mmol/L Carbon Dioxide (22-30) mmol/L POC Glucose (mg/dL) 125 H 183 H 143 H (75-99) mg/dL Calcium (8.4-10.2) mg/dL AST (14-36) U/L ALT (4-34) U/L Total Protein (6.3-8.2) g/dL Albumin (3.5-5.0) g/dL Microbiology - Last 24 Hours (Table) 02/14/21 08:16 Blood Culture - Preliminary Blood No Growth after 48 hours 02/14/21 08:00 Blood Culture - Preliminary Blood No Growth after 48 hours Diabetes panel 02/16/21 Range/Units 03:24 Sodium 132 L (137-145) mmol/L Potassium 3.8 (3.5-5.1) mmol/L Chloride 108 H (98-107) mmol/L Carbon Dioxide 19 L (22-30) mmol/L BUN 13 (7-17) mg/dL Creatinine 0.59 (0.52-1.04) mg/dL Glucose 90 (74-99) mg/dL Calcium 8.0 L (8.4-10.2) mg/dL AST 265 H (14-36) U/L ALT 262 H (4-34) U/L Alkaline Phosphatase 57 (38-126) U/L Total Protein 5.9 L (6.3-8.2) g/dL Albumin 2.7 L (3.5-5.0) g/dL Calcium panel 02/16/21 Range/Units 03:24 Calcium 8.0 L (8.4-10.2) mg/dL Albumin 2.7 L (3.5-5.0) g/dL Pituitary panel 02/16/21 Range/Units 03:24 Sodium 132 L (137-145) mmol/L Potassium 3.8 (3.5-5.1) mmol/L Chloride 108 H (98-107) mmol/L Carbon Dioxide 19 L (22-30) mmol/L BUN 13 (7-17) mg/dL Creatinine 0.59 (0.52-1.04) mg/dL Glucose 90 (74-99) mg/dL Calcium 8.0 L (8.4-10.2) mg/dL Adrenal panel 02/16/21 Range/Units 03:24 Sodium 132 L (137-145) mmol/L Potassium 3.8 (3.5-5.1) mmol/L Chloride 108 H (98-107) mmol/L Carbon Dioxide 19 L (22-30) mmol/L BUN 13 (7-17) mg/dL Creatinine 0.59 (0.52-1.04) mg/dL Glucose 90 (74-99) mg/dL Calcium 8.0 L (8.4-10.2) mg/dL Total Bilirubin 0.3 (0.2-1.3) mg/dL AST 265 H (14-36) U/L ALT 262 H (4-34) U/L Alkaline Phosphatase 57 (38-126) U/L Total Protein 5.9 L (6.3-8.2) g/dL Albumin 2.7 L (3.5-5.0) g/dL Assessment and Plan Assessment: 1. Diabetic right lateral foot ulcer 2. COVID PNA 3. History of DM 4. COPD 5. History of depression and schizophrenia Plan: Local wound care with Hailey to the wound bed daily. No surgical debridement required at this time. Thank you for the consultation.
--- NOTE | 2021-02-16 22:59 | PN ---
PROGRESS NOTE DATE OF SERVICE: 02/16/2021 REASON FOR FOLLOWUP: 1. Pneumonia. 2. Right foot ulcer. INTERVAL HISTORY: Patient did spike a fever this morning of 101.2. The patient afebrile since then. The patient is breathing slightly comfortably. Denies any chest pain. Did have a cough, not bringing up sputum. No abdominal pain. No pain to the right sternal border wound area. PHYSICAL EXAMINATION: Blood pressure is 94/57, pulse of 78, temperature 97.9. She is 94% on 10 L high-flow oxygen. General description is an elderly female lying in bed in no distress. Respiratory system: Unlabored breathing, clear to auscultation anteriorly. Heart S1, S2. Regular rate and rhythm. Abdomen soft, no tenderness. Right foot lateral border did have a wound with minimal purulent drainage. LABS: Hemoglobin is 9.2, white count 9.0. BUN of 30, creatinine 0.59. DIAGNOSTIC IMPRESSION/PLAN: 1. Patient admitted to the hospital with fever, concerning for pneumonia, possible aspiration plus-minus component of COVID-19 infection. The patient is covered with Lovenox, dexamethasone to continue. 2. Patient with right foot lateral border wound will need surgical debridement and deep cultures, covered with Zosyn and continue supportive care. MMODL / IJN: [id number] /
[2021-02-17] MEDS: SODIUM CHLORIDE 0.9% 1,000 ML IV SCH ×3 (01:50→21:22)
[2021-02-17 04:19] LABS: Anisocytosis Slight; Basophils % (A) 0 %; Eosinophils % (A) 0 %; HCT 31.2 % (34.0-46.0); HGB 9.8 gm/dL (11.4-16.0); Hypochromasia Slight; Lymphocytes % (A) 12 %; MCH 28.8 pg (25.0-35.0); MCHC 31.5 g/dL (31.0-37.0); MCV 91.2 fL (80.0-100.0); Mean Platelet Volume 8.4; Monocytes # (A) 0.3 k/uL (0-1.0); Monocytes % (A) 4 %; Neutrophils # (A) 6.9 k/uL (1.3-7.7); Neutrophils % (A) 83 %; Platelet Count 271 k/uL (150-450); RBC 3.42 m/uL (3.80-5.40); RDW 16.2 % (11.5-15.5); WBC 8.3 k/uL (3.8-10.6)
[2021-02-17 04:39] LABS: ALT 294 U/L (4-34); AST 206 U/L (14-36); African American GFR (CKD) >90 (>60 ml/min/1.73 sqM); Albumin 2.8 g/dL (3.5-5.0); Alkaline Phosphatase 59 U/L (38-126); Anion Gap 9 mmol/L; Blood Urea Nitrogen 14 mg/dL (7-17); Calcium 8.3 mg/dL (8.4-10.2); Carbon Dioxide 18 mmol/L (22-30); Chloride 108 mmol/L (98-107); Glucose 75 mg/dL (74-99); Non-African American GFR(CKD) 87 (>60 ml/min/1.73 sqM); Potassium 3.8 mmol/L (3.5-5.1); Sodium 135 mmol/L (137-145); Total Bilirubin 0.4 mg/dL (0.2-1.3); Total Protein 6.1 g/dL (6.3-8.2)
[2021-02-17 06:44] LABS: Glucose,Whole Blood 104 mg/dL (75-99)
[2021-02-17] MEDS: INSULIN ASPART (NovoLOG) 100 UNIT/ML VIAL SQ SCH ×4 (06:45→20:47)
[2021-02-17] MEDS: SYMBICORT 80-4.5 MCG INHALER INHALATION SCH ×2 (07:11→20:18)
[2021-02-17] MEDS: ALBUTEROL HFA INHALER INHALATION SCH ×4 (07:11→20:18)
[2021-02-17] MEDS: TIOTROPIUM 2.5 MCG INHALER INHALATION SCH (07:16)
--- NOTE | 2021-02-17 08:22 | P.PN ---
Subjective Progress Note Date: 02/17/21 \ 75-year-old female patient who presented to the ED because of altered mentation and diminished level of consciousness. [place] [facility] [place] [facility] [place] She was hypoxic and she was also febrile and she appeared to have had aspirated some emesis. The patient got admitted to the intensive care unit. She was placed on 100% nonrebreather facemask and subsequently she tested positive for coronary artery/Covid 19. She was hypotensive and she was supported with pressors and she was placed on norepinephrine infusion. An underlying cause status is DNR/DNI. No much history could be obtained from this patient. The patient apparently has had history of COPD, diabetes mellitus, hypertension and hypothyroidism as well as schizophrenia/depression and she has history of chronic smoking. Her white cell count at time of admission was 7.1 with a sodium level of 128. She had a normal renal function. The chest X-ray showed bilateral infiltrates right more than left consistent with underlying Covid 19 related pneumonia. subsequently, the patient was transitioned to oxygen at 10 L per minute nasal cannula and her oxygen flow was ranging between 8 and 10 L. She continued to have episodes of fever. Her LFTs were abnormal and ultrasound the liver showed some hepatomegaly and there was some also thickening of the gallbladder wall. The patienthad some rise in the LFTs including AST and ALP. Nevertheless the bilirubin was within normal limits. The patient's LDH level was 670 from . with a CRP of 70.9. The patient was placed on Decadron 6 mg IV every 24 hours. The patient was placed on Lovenox 40 mg subcu every 24 hours. She was also placed on empiric antibiotic coverage with IV Zosyn 3.375 g every 8 hours. IV fluids are running at 100cc/hr of normal saline. Objective - Vital Signs Vital signs: Vital Signs Temp 97.9 F 02/16/21 20:00 Pulse 78 02/16/21 20:00 Resp 22 02/17/21 02:00 BP 101/63 02/17/21 02:00 Pulse Ox 92 L 02/17/21 02:00 Intake & Output 02/16/21 02/17/21 02/17/21 18:59 06:59 18:59 Intake Total 850 1400 Output Total 100 100 Balance 750 1400 -100 Weight 70.7 kg Intake: IV 600 1200 Sodium Chloride 0.9% 1, 600 1200 000 ml @ 100 mls/hr IV . Q10H [facility] Rx#:[id number] Oral 250 200 Output: Urine 100 100 Other: Voiding Method External Catheter External Catheter # Bowel Movements 1 - Exam GENERAL EXAM: Alert, frail 75-year-old female patient, on 10 L high flow nasal cannula, comfortable in no apparent distress. HEAD: Normocephalic. EYES: Normal reaction of pupils, equal size. NOSE: Clear with pink turbinates. THROAT: No erythema or exudates. NECK: No masses, no JVD. CHEST: No chest wall deformity. LUNGS: Equal air entry with scattered rhonchi, crackles in the posterior bases right greater than left CVS: S1 and S2 normal with no audible murmur, regular rhythm. ABDOMEN: No hepatosplenomegaly, normal bowel sounds, no guarding or rigidity. SPINE: No scoliosis or deformity SKIN: No rashes CENTRAL NERVOUS SYSTEM: No focal deficits, tone is normal in all 4 extremities. EXTREMITIES: There is no peripheral edema. No clubbing, no cyanosis. Pe ripheral pulses are intact. - Labs CBC & Chem 7: 02/17/21 03:00 02/17/21 03:00 Labs: Abnormal Lab Results - Last 24 Hours (Table) 02/16/21 02/16/21 02/16/21 Range/Units 11:03 16:32 19:59 RBC (3.80-5.40) m/uL Hgb (11.4-16.0) gm/dL Hct (34.0-46.0) % RDW (11.5-15.5) % Sodium (137-145) mmol/L Chloride (98-107) mmol/L Carbon Dioxide (22-30) mmol/L POC Glucose (mg/dL) 125 H 183 H 143 H (75-99) mg/dL Calcium (8.4-10.2) mg/dL AST (14-36) U/L ALT (4-34) U/L Total Protein (6.3-8.2) g/dL Albumin (3.5-5.0) g/dL 02/17/21 02/17/21 02/17/21 Range/Units 03:00 03:00 06:43 RBC 3.42 L (3.80-5.40) m/uL Hgb 9.8 L (11.4-16.0) gm/dL Hct 31.2 L (34.0-46.0) % RDW 16.2 H (11.5-15.5) % Sodium 135 L (137-145) mmol/L Chloride 108 H (98-107) mmol/L Carbon Dioxide 18 L (22-30) mmol/L POC Glucose (mg/dL) 104 H (75-99) mg/dL Calcium 8.3 L (8.4-10.2) mg/dL AST 206 H (14-36) U/L ALT 294 H (4-34) U/L Total Protein 6.1 L (6.3-8.2) g/dL Albumin 2.8 L (3.5-5.0) g/dL Microbiology - Last 24 Hours (Table) 02/14/21 08:16 Blood Culture - Preliminary Blood No Growth after 48 hours 02/14/21 08:00 Blood Culture - Preliminary Blood No Growth after 48 hours Assessment and Plan Plan: 1 Acute mental status changes, likely due to covid 19 infection metabolic encephalopathy. Mental status is improving and the patient was able to follow commands and answer simple questions without any major difficulties. 2 Acute hypoxic respiratory failure secondary to acute CoVID 19 pneumonia, currently on 10 L by nasal cannula. 3 Hypotension, which may relate to underlying sepsis. Recovered and off pressors And the patient required pressors initially at time of admission and currently the patient is off vasopressors. 4 History of hyperlipidemia. 5 History of hypertension. 6 History of hypothyroidism. 7 Possible history of underlying COPD. the patient is currently on a combination of Spiriva and Symbicort 8 History of diabetes mellitus. 9 History of ongoing tobacco use with nicotine addiction. 10 History of depression and schizophrenia. 11 transaminitis, could be related to COVID. Underlying cholecystitis is felt to be less likely, LFTs are improving. Plan Keep the patient 10 L of oxygen by nasal cannula The fluid balance has been persistently positive as the patient is on normal saline at the rate of 100 mL an hour. Repeat chest x-ray today Continue the IV Decadron 6 mg every 24 hours Continue daily Lasix 40 mg every 24 hours Monitor liver function tests Continue IV Zosyn as an empiric antibiotic coverage and check a pro-calcitonin levels Repeat inflammatory markers for tomorrow The patient will need therapy at a later stage. She is getting progressively more weak. Mental status is adequate for now
[2021-02-17] MEDS: PIPERACILLIN-TAZOBACTAM 3.375 GM in SODIUM CHLORIDE 0.9% 100 ML IVPB SCH ×3 (09:32→23:19)
[2021-02-17] MEDS: ENOXAPARIN 40 MG/0.4 ML SYRINGE SQ SCH (09:32)
[2021-02-17] MEDS: LEVOTHYROXINE 50 MCG TAB PO SCH (09:33)
[2021-02-17] MEDS: ZINC SULFATE 220 MG CAP PO SCH (09:33)
[2021-02-17] MEDS: GABAPENTIN 300 MG CAP PO SCH ×3 (09:33→20:48)
[2021-02-17] MEDS: metFORMIN 500 MG TAB PO SCH ×2 (09:33→20:48)
[2021-02-17] MEDS: ASCORBIC ACID 500 MG TAB PO SCH (09:33)
[2021-02-17] MEDS: CLOPIDOGREL 75 MG TAB PO SCH (09:33)
[2021-02-17] MEDS: BACLOFEN 10 MG TAB PO SCH ×2 (09:33→20:47)
[2021-02-17] MEDS: DOCUSATE 100 MG CAP PO SCH ×2 (09:33→20:48)
[2021-02-17] MEDS: amLODIPine 5 MG TAB PO SCH (09:33)
[2021-02-17] MEDS: PANTOPRAZOLE 40 MG/10 ML VIAL IV SCH (09:34)
[2021-02-17] MEDS: DEXAMETHASONE SOD PHOSPHATE 10 MG/ML 1 ML VIAL IV SCH (09:34)
[2021-02-17] MEDS: FUROSEMIDE 10 MG/ML 4 ML VIAL IV SCH (09:34)
[2021-02-17] MEDS: CHOLECALCIFEROL 10 MCG (400 IU) TABLET PO SCH (09:35)
[2021-02-17] MEDS: risperiDONE 0.5 MG TAB PO SCH ×2 (09:35→21:10)
[2021-02-17] MEDS: buPROPion SR 150 MG TABLET.ER PO SCH ×2 (09:35→21:10)
[2021-02-17] MEDS: guaiFENesin SYRUP 100MG/5ML 200 MG/10 ML CUP PO SCH ×2 (09:36→20:48)
[2021-02-17] MEDS: polyethylene glycoL 3350 17 GM POWD.PACK PO SCH (09:36)
[2021-02-17] MEDS: HYDROmorphone 0.5 MG/0.5 ML SYRINGE IVP PRN (09:57)
[2021-02-17 10:08] LABS: C Reactive Protein 153.7 mg/L (<10.0)
--- NOTE | 2021-02-17 10:16 | XR ---
EXAMINATION TYPE: XR chest 1V portable DATE OF EXAM: 02/17/2021 HISTORY: Shortness of breath. COMPARISON: 02/15/2021 TECHNIQUE: Single view of the chest is submitted. FINDINGS: Demonstrated are scattered senescent parenchymal change. Patchy infiltrate persists throughout the right lung left lower lobe with slight interval progression suggested. The heart is stable. Hilar and mediastinal structures are within normal limits. Degenerative changes are seen of the dorsal spine. IMPRESSION: 1. Patchy infiltrate persists throughout the right lung left lower lobe with slight interval progres lane suggested.
[2021-02-17 11:11] VITALS: BMI 24.4
[2021-02-17] MEDS: FLUTICASONE 50MCG/SPRAY NASAL 16GM EA NOSTRIL SCH (12:22)
[2021-02-17] MEDS: ACETAMINOPHEN IV (For NPO) 1,000 MG in EMPTY BAG 1 BAG IVPB SCH ×3 (12:23→23:03)
[2021-02-17 12:25] LABS: Glucose,Whole Blood 154 mg/dL (75-99)
--- NOTE | 2021-02-17 13:18 | P.PN ---
Subjective Progress Note Date: 02/17/21 Principal diagnosis: Right diabetic foot ulcer The patient is seen in the ICU. She is currently admitted and being treat for Covid pneumonia. No acute changes through the night. Objective - Vital Signs Vital signs: Vital Signs Temp 102.7 F H 02/17/21 10:00 Pulse 95 02/17/21 10:00 Resp 28 H 02/17/21 10:00 BP 131/82 02/17/21 10:00 Pulse Ox 89 L 02/17/21 10:00 Intake & Output 02/16/21 02/17/21 02/17/21 18:59 06:59 18:59 Intake Total 850 1400 1200 Output Total 100 100 Balance 750 1400 1100 Weight 70.7 kg 70.7 kg Intake: IV 600 1200 1200 Sodium Chloride 0.9% 1, 600 1200 1200 000 ml @ 100 mls/hr IV . Q10H [facility] Rx#:[id number] Oral 250 200 Output: Urine 100 100 Other: Voiding Method External Catheter External Catheter External Catheter # Bowel Movements 1 - Exam General appearance: The patient is alert, oriented, in no acute distress. HET: Head is normocephalic and atraumatic. Neck: Supple without lymphadenopathy. Trachea midline.. Extremities: Palpable bilateral femoral and dorsalis pedis pulses.Right lower extremity with dressing to lateral surface of right foot. Neurological: No focal deficits. Strength and sensation are grossly intact. - Labs CBC & Chem 7: 02/17/21 03:00 02/17/21 03:00 Labs: Abnormal Lab Results - Last 24 Hours (Table) 02/16/21 02/16/21 02/17/21 Range/Units 16:32 19:59 03:00 RBC 3.42 L (3.80-5.40) m/uL Hgb 9.8 L (11.4-16.0) gm/dL Hct 31.2 L (34.0-46.0) % RDW 16.2 H (11.5-15.5) % Sodium (137-145) mmol/L Chloride (98-107) mmol/L Carbon Dioxide (22-30) mmol/L POC Glucose (mg/dL) 183 H 143 H (75-99) mg/dL Calcium (8.4-10.2) mg/dL AST (14-36) U/L ALT (4-34) U/L Lactate Dehydrogenase (313-618) U/L C-Reactive Protein (<10.0) mg/L Total Protein (6.3-8.2) g/dL Albumin (3.5-5.0) g/dL 02/17/21 02/17/21 02/17/21 Range/Units 03:00 03:00 06:43 RBC (3.80-5.40) m/uL Hgb (11.4-16.0) gm/dL Hct (34.0-46.0) % RDW (11.5-15.5) % Sodium 135 L (137-145) mmol/L Chloride 108 H (98-107) mmol/L Carbon Dioxide 18 L (22-30) mmol/L POC Glucose (mg/dL) 104 H (75-99) mg/dL Calcium 8.3 L (8.4-10.2) mg/dL AST 206 H (14-36) U/L ALT 294 H (4-34) U/L Lactate Dehydrogenase 1175 H (313-618) U/L C-Reactive Protein 153.7 H (<10.0) mg/L Total Protein 6.1 L (6.3-8.2) g/dL Albumin 2.8 L (3.5-5.0) g/dL Microbiology - Last 24 Hours (Table) 02/14/21 08:16 Blood Culture - Preliminary Blood No Growth after 72 hours 02/14/21 08:00 Blood Culture - Preliminary Blood No Growth after 72 hours Assessment and Plan Assessment: 1. Diabetic nonhealing ulcer of the right foot Plan: 1. Supportive Care 2. Hailey wound dressing every other day 3. No indication for surgical debridement at this time. The impression and plan of care has been dictated as directed. I performed a history and examination of this patient, discussed the same with the dictator. I agree with the dictator's note ,documented as a scribe. Any additional findings or plans will be noted.
--- NOTE | 2021-02-17 14:46 | P.GSCN ---
History of Present Illness Consult date: 02/17/21 Reason for Consult: Cholecystitis History of present illness: 75-year-old female admitted to the hospital for fevers and Unresponsiveness. Patient with history of schizophrenia. She was found to be covert positive. High-grade fevers 103.5. Liver enzymes noted to be elevated as well. Patient may have vomited prior to admission. She was complaining of some vague discomfort. Ultrasound was ordered because of the elevated liver enzymes. Patient was noted to have a thickened gallbladder wall with CBD dilation. She was in the ICU this morning. She was transferred to the floor. Apparently family has chosen to make patient DO NOT RESUSCITATE. Review of Systems ROS unobtainable: due to mental status Past Medical History Past Medical History: COPD, Diabetes Mellitus, Hypertension, Thyroid Disorder Additional Past Medical History / Comment(s): Musclespasms, Fracture R Radius, Fracture Nasal Bones History of Any Multi-Drug Resistant Organisms: None Reported Past Surgical History: No Surgical Hx Reported Past Anesthesia/Blood Transfusion Reactions: No Reported Reaction Past Psychological History: Depression, Schizophrenia Additional Psychological History / Comment(s): SEVERELY PARANOID Smoking Status: Current every day smoker Past Alcohol Use History: Abuse Past Drug Use History: None Reported - Past Family History Father History Unknown: Yes Medications and Allergies Home Medications Medication Instructions Recorded Confirmed Type ALPRAZolam [Xanax] 0.25 mg PO TID PRN 06/15/20 02/14/21 History Baclofen 10 mg PO BID@0800,199906/15/20 02/14/21 History Betamethasone Dipropionate 1 applic TOPICAL BID PRN 06/15/20 02/14/21 History [Diprolene AF 0.05% Cream] Carbamide Peroxide [Debrox Otic] 5 drops BOTH EARS DAILY PRN 06/15/20 02/14/21 History Docusate [Colace] 100 mg PO BID@0800,199906/15/20 02/14/21 History Fluticasone/Umeclidin/Vilanter 1 puff INHALATION RT-DAILY@199906/15/20 02/14/21 History [Trelegy Ellipta 100-62.5-25] Gabapentin [Neurontin] 300 mg PO TID@0800,1300,199906/15/20 02/14/21 History Ipratropium-Albuterol Nebulize 3 ml INHALATION RT-QID PRN 06/15/20 02/14/21 History [Duoneb 0.5 mg-3 mg/3 ml Soln] Levothyroxine Sodium [Synthroid] 50 mcg PO DAILY@0800 06/15/20 02/14/21 History Magnesium Hydroxide [Milk of 2,400 mg PO DAILY PRN 06/15/20 02/14/21 History Magnesia] Meclizine HCl 25 mg PO BID PRN 06/15/20 02/14/21 History Mupirocin 2% Oint [Bactroban 2% 1 applic TOPICAL TID PRN 06/15/20 02/14/21 History Oint] Simvastatin [Zocor] 20 mg PO DAILY@199906/15/20 02/14/21 History Vitamin B Complex 1 tab PO DAILY@0800 06/15/20 02/14/21 History amLODIPine [Norvasc] 5 mg PO DAILY@0800 06/15/20 02/14/21 History buPROPion HCL [Wellbutrin SR] 150 mg PO BID@0800,199906/15/20 02/14/21 History guaiFENesin [guaiFENesin Oral 200 mg PO BID@0800,199906/15/20 02/14/21 History Solution] metFORMIN HCL ER [Glucophage Xr] 500 mg PO HS@199906/15/20 02/14/21 History polyethylene glycoL 3350 [Miralax] 17 gm PO DAILY@0800 06/15/20 02/14/21 History risperiDONE 1.5 mg PO BID@0800,199906/15/20 02/14/21 History Acetaminophen Tab [Tylenol] 500 - 1,000 mg PO Q8H PRN 10/21/20 02/14/21 History Theraworx Relief 1 pump TOPICAL BID PRN 10/21/20 02/14/21 History Benzonatate [Tessalon Perles] 100 mg PO TID PRN cap 11/07/20 02/14/21 Rx Cholecalciferol [Vitamin D3 (10 400 unit PO DAILY tab 11/07/20 02/14/21 Rx Mcg = 400 Iu)] Clopidogrel [Plavix] 75 mg PO DAILY tab 11/07/20 02/14/21 Rx Furosemide [Lasix] 20 mg PO DAILY PRN tab 11/07/20 02/14/21 Rx Vitamin C 1000mg/Zinc 15mg 1 tab PO DAILY@0800 02/14/21 02/14/21 History Allergies Allergy/AdvReac Type Severity Reaction Status Date / Time No Known Allergies Allergy Verified 02/14/21 08:21 Surgical - Exam Vital Signs Temp Pulse Resp BP Pulse Ox 101.2 F H 124 H 28 H 129/74 95 02/14/21 07:52 02/14/21 07:52 02/14/21 07:52 02/14/21 07:52 02/14/21 07:52 Physical exam: General: Well-developed, well-nourished Mild shortness of breath HEENT: Normocephalic, sclerae nonicteric Abdomen: Mild upper abdominal tenderness, nondistended Extremities: No edema Neuro: Alert and Confused Results - Labs 02/17/21 03:00 02/17/21 03:00 Abnormal Lab Results - Last 24 Hours (Table) 02/16/21 02/16/21 02/17/21 Range/Units 16:32 19:59 03:00 RBC 3.42 L (3.80-5.40) m/uL Hgb 9.8 L (11.4-16.0) gm/dL Hct 31.2 L (34.0-46.0) % RDW 16.2 H (11.5-15.5) % Sodium (137-145) mmol/L Chloride (98-107) mmol/L Carbon Dioxide (22-30) mmol/L POC Glucose (mg/dL) 183 H 143 H (75-99) mg/dL Calcium (8.4-10.2) mg/dL AST (14-36) U/L ALT (4-34) U/L Lactate Dehydrogenase (313-618) U/L C-Reactive Protein (<10.0) mg/L Total Protein (6.3-8.2) g/dL Albumin (3.5-5.0) g/dL 02/17/21 02/17/21 02/17/21 Range/Units 03:00 03:00 06:43 RBC (3.80-5.40) m/uL Hgb (11.4-16.0) gm/dL Hct (34.0-46.0) % RDW (11.5-15.5) % Sodium 135 L (137-145) mmol/L Chloride 108 H (98-107) mmol/L Carbon Dioxide 18 L (22-30) mmol/L POC Glucose (mg/dL) 104 H (75-99) mg/dL Calcium 8.3 L (8.4-10.2) mg/dL AST 206 H (14-36) U/L ALT 294 H (4-34) U/L Lactate Dehydrogenase 1175 H (313-618) U/L C-Reactive Protein 153.7 H (<10.0) mg/L Total Protein 6.1 L (6.3-8.2) g/dL Albumin 2.8 L (3.5-5.0) g/dL 02/17/21 Range/Units 12:22 RBC (3.80-5.40) m/uL Hgb (11.4-16.0) gm/dL Hct (34.0-46.0) % RDW (11.5-15.5) % Sodium (137-145) mmol/L Chloride (98-107) mmol/L Carbon Dioxide (22-30) mmol/L POC Glucose (mg/dL) 154 H (75-99) mg/dL Calcium (8.4-10.2) mg/dL AST (14-36) U/L ALT (4-34) U/L Lactate Dehydrogenase (313-618) U/L C-Reactive Protein (<10.0) mg/L Total Protein (6.3-8.2) g/dL Albumin (3.5-5.0) g/dL Microbiology - Last 24 Hours (Table) 02/14/21 08:16 Blood Culture - Preliminary Blood No Growth after 72 hours 02/14/21 08:00 Blood Culture - Preliminary Blood No Growth after 72 hours Diabetes panel 02/17/21 Range/Units 03:00 Sodium 135 L (137-145) mmol/L Potassium 3.8 (3.5-5.1) mmol/L Chloride 108 H (98-107) mmol/L Carbon Dioxide 18 L (22-30) mmol/L BUN 14 (7-17) mg/dL Creatinine 0.63 (0.52-1.04) mg/dL Glucose 75 (74-99) mg/dL Calcium 8.3 L (8.4-10.2) mg/dL AST 206 H (14-36) U/L ALT 294 H (4-34) U/L Alkaline Phosphatase 59 (38-126) U/L Total Protein 6.1 L (6.3-8.2) g/dL Albumin 2.8 L (3.5-5.0) g/dL Calcium panel 02/17/21 Range/Units 03:00 Calcium 8.3 L (8.4-10.2) mg/dL Albumin 2.8 L (3.5-5.0) g/dL Pituitary panel 02/17/21 Range/Units 03:00 Sodium 135 L (137-145) mmol/L Potassium 3.8 (3.5-5.1) mmol/L Chloride 108 H (98-107) mmol/L Carbon Dioxide 18 L (22-30) mmol/L BUN 14 (7-17) mg/dL Creatinine 0.63 (0.52-1.04) mg/dL Glucose 75 (74-99) mg/dL Calcium 8.3 L (8.4-10.2) mg/dL Adrenal panel 02/17/21 Range/Units 03:00 Sodium 135 L (137-145) mmol/L Potassium 3.8 (3.5-5.1) mmol/L Chloride 108 H (98-107) mmol/L Carbon Dioxide 18 L (22-30) mmol/L BUN 14 (7-17) mg/dL Creatinine 0.63 (0.52-1.04) mg/dL Glucose 75 (74-99) mg/dL Calcium 8.3 L (8.4-10.2) mg/dL Total Bilirubin 0.4 (0.2-1.3) mg/dL AST 206 H (14-36) U/L ALT 294 H (4-34) U/L Alkaline Phosphatase 59 (38-126) U/L Total Protein 6.1 L (6.3-8.2) g/dL Albumin 2.8 L (3.5-5.0) g/dL Assessment and Plan (1) Acalculous cholecystitis Narrative/Plan: Patient with covid positive serology. Elevated liver enzymes with ultrasound showing evidence of acalculus cholecystitis. Recommend conservative management with IV antibiotics and serial labs. Patient may require cholecystectomy later during his hospital stay. We'll follow with you. Current Visit: Yes Status: Acute Code(s): K81.9 - CHOLECYSTITIS, UNSPECIFIED SNOMED Code(s): 62515677
[2021-02-17 16:17] LABS: Glucose,Whole Blood 185 mg/dL (75-99)
--- NOTE | 2021-02-17 17:12 | P.PN ---
Subjective Progress Note Date: 02/17/21 Sofía Leslie, is a 75-year-old female patient of Dr. Jacob who presented to [facility] emergency room with a chief complaint of being and responsive, patient was last seen at the nursing facility where she leaves at 3 AM, she was found in the morning and responsive EMS were called pulse ox was in the 80s, and temperature was 103 she was evaluated in the emergency room vital examination on arrival to emergency room reveals a temperature of 101.2 pulse 124 respiration 28 blood pressure 129/74 pulse ox 95% on nonrebreather mask at 15 L her white blood count was 7.1 hemoglobin 10.2 platelet count 338 sodium 128 glucose 187 AST and ALT normal BUN 15 creatinine 0.79 coronavirus PCR was positive. EKG was done in the emergency room and revealed sinus tachycardia with left anterior fascicular block and possible old septal infarct as evidenced by poor R-wave progression in the anterior leads. Chest x-ray revealed mild cardiomegaly with small bilateral pleural effusions, right upper lung and bybasilar acute infiltrates. Patient was admitted to intensive care unit pulmonary consultation was requested. Patient is unable to provide any information for review of system and past med ical history. From review of her chart, she has a past medical history of hypertension with hypertensive heart disease, history of hyperlipidemia, history of hypothyroidism, history of pulmonary hypertension, history of COPD, and history of diabetes Mellitus. On 02/15/2021 patient was seen and examined in the ICU she is alert slightly confused in no apparent distress she is complaining of nose congestion she stated that her shortness of breath is better she is still having occasional cough she is complaining of tenderness in the right heel area site of a small open ulcer, otherwise she denies any complaints there is no fever or chills no headache or dizziness no chest pain no nausea or vomiting no abdominal pain no diarrhea no blood in the stools and no urinary symptoms. On 02/16/2021 patient was seen and examined in the ICU she is alert and oriented 3 in no apparent distress she is complaining of abdominal discomfort mostly in the epigastric area she is still complaining of cough and shortness of breath otherwise she denies any complaints there is no fever or chills no headache or dizziness no chest pain no nausea or vomiting no diarrhea no blood in the stools no burning with urination no frequency or urgency and no hematuria. Liver enzymes are significantly elevated today. On 02/17/2021 patient was seen and examined on the medical floor she is alert and oriented in no apparent distress, she is still complaining of cough, shortness of breath, and abdominal discomfort otherwise she denies any complaints there is no fever or chills no headache or dizziness no chest pain no nausea or vomiting, no diarrhea no blood in the stools no burning with urination no frequency or urgency and no hematuria Objective - Vital Signs Vital signs: Vital Signs Temp 97.9 F 02/16/21 20:00 Pulse 78 02/16/21 20:00 Resp 22 02/17/21 02:00 BP 101/63 02/17/21 02:00 Pulse Ox 92 L 02/17/21 02:00 Intake & Output 02/16/21 02/17/21 02/17/21 18:59 06:59 18:59 Intake Total 850 1400 Output Total 100 100 Balance 750 1400 -100 Weight 70.7 kg Intake: IV 600 1200 Sodium Chloride 0.9% 1, 600 1200 000 ml @ 100 mls/hr IV . Q10H [facility] Rx#:[id number] Oral 250 200 Output: Urine 100 100 Other: Voiding Method External Catheter External Catheter External Catheter # Bowel Movements 1 - Exam In general patient is alert responsive in no apparent distress, currently she is maintained on oxygen 10 L high flow HEENT head normocephalic and atraumatic Neck is supple no JVD no goiter no lymphadenopathy Chest exam reveals coarse crackles in both lung conley with wheezing Cardiac exam reveals regular heart sounds S1 and S2 no gallops no murmurs Abdomen is soft nontender no organomegaly with normal bowel sounds Extremity exam reveals no edema no cyanosis or clubbing, there is a small ulcer on the lateral side of the right heel area with tenderness Neurological examination is limited but does not show any gross focal deficit - Labs CBC & Chem 7: 02/17/21 03:00 02/17/21 03:00 Labs: Abnormal Lab Results - Last 24 Hours (Table) 02/16/21 02/16/21 02/16/21 Range/Units 11:03 16:32 19:59 RBC (3.80-5.40) m/uL Hgb (11.4-16.0) gm/dL Hct (34.0-46.0) % RDW (11.5-15.5) % Sodium (137-145) mmol/L Chloride (98-107) mmol/L Carbon Dioxide (22-30) mmol/L POC Glucose (mg/dL) 125 H 183 H 143 H (75-99) mg/dL Calcium (8.4-10.2) mg/dL AST (14-36) U/L ALT (4-34) U/L Total Protein (6.3-8.2) g/dL Albumin (3.5-5.0) g/dL 02/17/21 02/17/21 02/17/21 Range/Units 03:00 03:00 06:43 RBC 3.42 L (3.80-5.40) m/uL Hgb 9.8 L (11.4-16.0) gm/dL Hct 31.2 L (34.0-46.0) % RDW 16.2 H (11.5-15.5) % Sodium 135 L (137-145) mmol/L Chloride 108 H (98-107) mmol/L Carbon Dioxide 18 L (22-30) mmol/L POC Glucose (mg/dL) 104 H (75-99) mg/dL Calcium 8.3 L (8.4-10.2) mg/dL AST 206 H (14-36) U/L ALT 294 H (4-34) U/L Total Protein 6.1 L (6.3-8.2) g/dL Albumin 2.8 L (3.5-5.0) g/dL Microbiology - Last 24 Hours (Table) 02/14/21 08:16 Blood Culture - Preliminary Blood No Growth after 48 hours 02/14/21 08:00 Blood Culture - Preliminary Blood No Growth after 48 hours Assessment and Plan Plan: Acute Covid 19 infection with evidence of multifocal pneumonia Acute hypoxic respiratory failure Underlying history of hypertension Underlying history of hyperlipidemia Underlying history of hypothyroidism Underlying history of pulmonary hypertension Underlying history of hypertensive heart disease Underlying history of schizophrenia, major depression, and paranoid personality disorder per chart Small ulcer on the lateral side of the right heel area with tenderness Will con sult vascular surgery for possible debridement Elevated liver enzymes will stop Lipitor at this time will check liver ultrasound and monitor closely, ultrasound revealing evidence of acute cholecystitis, patient maintained on IV Zosyn, surgical consultation requested Patient is admitted to intensive care unit She was started on IV dexamethasone and subcu Lovenox She was started on norepinephrine drip She was given a dose of IV Rocephin 2 g in the emergency room Pulmonary critical care consultation and infectious disease requested requested Patient is unable to provide any information, all past medical history is derived from review of her chart
[2021-02-17 20:11] LABS: Glucose,Whole Blood 191 mg/dL (75-99)
--- NOTE | 2021-02-18 00:19 | PN ---
PROGRESS NOTE DATE OF SERVICE: 02/17/2021 REASON FOR FOLLOWUP: Pneumonia. INTERVAL HISTORY: The patient did have a low-grade fever of 100.2 this morning. The patient has been afebrile since then. The patient is currently on high-flow oxygen. The patient is hemodynamically stable, not on any pressor support. No vomiting or diarrhea has been reported. The patient herself is unable to provide reliable history. PHYSICAL EXAMINATION: Blood pressure 95/56, pulse of 68, temperature 98.6. She is 94% on 10 L high-flow oxygen. General description is an elderly female lying in bed in no distress. RESPIRATORY SYSTEM: Unlabored breathing with decreased intensity of breath sounds. No wheeze. HEART: S1, S2. Regular rate and rhythm. ABDOMEN: Soft. No tenderness. LABS: Hemoglobin is 9.8, white count 8.3. Liver enzymes mildly elevated. Creatinine 0.63. LDH and CRP are elevated. DIAGNOSTIC IMPRESSION AND PLAN: Patient admitted to hospital with acute respiratory failure. Source is pneumonia, likely COVID plus/minus aspiration; also with elevated liver enzymes patient is currently covered with Zosyn; to continue while monitoring clinical course closely. Continue with supportive care. MMODL / IJN: [id number] /
[2021-02-18] MEDS: ACETAMINOPHEN IV (For NPO) 1,000 MG in EMPTY BAG 1 BAG IVPB SCH (05:29)
[2021-02-18 06:53] LABS: Glucose,Whole Blood 89 mg/dL (75-99)
[2021-02-18] MEDS: INSULIN ASPART (NovoLOG) 100 UNIT/ML VIAL SQ SCH ×4 (07:01→20:37)
[2021-02-18] MEDS: guaiFENesin SYRUP 100MG/5ML 200 MG/10 ML CUP PO SCH ×2 (08:28→20:34)
[2021-02-18] MEDS: FUROSEMIDE 10 MG/ML 4 ML VIAL IV SCH (08:28)
[2021-02-18] MEDS: DEXAMETHASONE SOD PHOSPHATE 10 MG/ML 1 ML VIAL IV SCH (08:28)
[2021-02-18] MEDS: ASCORBIC ACID 500 MG TAB PO SCH (08:28)
[2021-02-18] MEDS: PANTOPRAZOLE 40 MG/10 ML VIAL IV SCH (08:29)
[2021-02-18] MEDS: PIPERACILLIN-TAZOBACTAM 3.375 GM in SODIUM CHLORIDE 0.9% 100 ML IVPB SCH ×3 (08:29→23:01)
[2021-02-18] MEDS: ENOXAPARIN 40 MG/0.4 ML SYRINGE SQ SCH (08:29)
[2021-02-18] MEDS: ZINC SULFATE 220 MG CAP PO SCH (08:29)
[2021-02-18] MEDS: amLODIPine 5 MG TAB PO SCH (08:29)
[2021-02-18] MEDS: BACLOFEN 10 MG TAB PO SCH ×2 (08:30→20:34)
[2021-02-18] MEDS: metFORMIN 500 MG TAB PO SCH ×2 (08:30→20:34)
[2021-02-18] MEDS: SODIUM CHLORIDE 0.9% 1,000 ML IV SCH ×2 (08:30→16:32)
[2021-02-18] MEDS: risperiDONE 0.5 MG TAB PO SCH ×2 (08:30→22:34)
[2021-02-18] MEDS: LEVOTHYROXINE 50 MCG TAB PO SCH (08:30)
[2021-02-18] MEDS: CLOPIDOGREL 75 MG TAB PO SCH (08:30)
[2021-02-18] MEDS: GABAPENTIN 300 MG CAP PO SCH ×3 (08:30→20:34)
[2021-02-18] MEDS: DOCUSATE 100 MG CAP PO SCH ×2 (08:30→20:34)
[2021-02-18] MEDS: CHOLECALCIFEROL 10 MCG (400 IU) TABLET PO SCH (08:31)
[2021-02-18] MEDS: buPROPion SR 150 MG TABLET.ER PO SCH ×2 (08:31→22:33)
[2021-02-18] MEDS: SYMBICORT 80-4.5 MCG INHALER INHALATION SCH ×2 (09:05→21:58)
[2021-02-18] MEDS: ALBUTEROL HFA INHALER INHALATION SCH ×4 (09:05→21:58)
[2021-02-18] MEDS: TIOTROPIUM 2.5 MCG INHALER INHALATION SCH (09:05)
[2021-02-18] MEDS: FLUTICASONE 50MCG/SPRAY NASAL 16GM EA NOSTRIL SCH (09:07)
[2021-02-18] MEDS: polyethylene glycoL 3350 17 GM POWD.PACK PO SCH (10:01)
[2021-02-18] MEDS: ACETAMINOPHEN IV (For NPO) 1,000 MG in EMPTY BAG 1 BAG IVPB PRN ×3 (10:03→22:37)
[2021-02-18 11:24] LABS: Glucose,Whole Blood 179 mg/dL (75-99)
--- NOTE | 2021-02-18 11:44 | P.PN ---
Subjective Progress Note Date: 02/18/21 Principal diagnosis: Right diabetic foot ulcer Hernandez is seen and examined lying in bed. She is currently admitted and being treat for Covid pneumonia. No acute changes through the night. Objective - Vital Signs Vital signs: Vital Signs Temp 104.1 F H 02/18/21 10:49 Pulse 120 H 02/18/21 09:30 Resp 22 02/18/21 09:30 BP 124/69 02/18/21 09:30 Pulse Ox 94 L 02/18/21 09:30 Intake & Output 02/17/21 02/18/21 02/18/21 18:59 06:59 18:59 Intake Total 1200 Output Total 861 234 9398 Balance 700 -450 -1200 Weight 70.7 kg Intake: IV 1200 Sodium Chloride 0.9% 1, 1200 000 ml @ 100 mls/hr IV . Q10H [facility] Rx#:[id number] Output: Urine [id number] Other: Voiding Method External Catheter External Catheter External Catheter - Exam General appearance: The patient is alert, oriented, in no acute distress. HET: Head is normocephalic and atraumatic. Neck: Supple without lymphadenopathy. Trachea midline.. Extremities: Palpable bilateral femoral and dorsalis pedis pulses.Right lower extremity with dressing to lateral surface of right foot. Neurological: No focal deficits. Strength and sensation are grossly intact. - Labs CBC & Chem 7: 02/17/21 03:00 02/17/21 03:00 Labs: Abnormal Lab Results - Last 24 Hours (Table) 02/17/21 02/17/21 02/17/21 Range/Units 03:00 12:22 16:16 POC Glucose (mg/dL) 154 H 185 H (75-99) mg/dL Procalcitonin 3.13 H (0.02-0.09) ng/mL 02/17/21 02/18/21 Range/Units 20:09 11:23 POC Glucose (mg/dL) 191 H 179 H (75-99) mg/dL Procalcitonin (0.02-0.09) ng/mL Microbiology - Last 24 Hours (Table) 02/14/21 08:00 Blood Culture - Preliminary Blood No Growth after 96 hours 02/14/21 08:16 Blood Culture - Preliminary Blood No Growth after 96 hours Assessment and Plan Assessment: 1. 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 Covid pneumonia Plan: 1. Supportive Care 2. Hailey wound dressing every other day 3. No indication for surgical debridement at this time 4. Recommend outpatient follow-up with wound care clinic Thank you for this consultation, we'll sign off at this time The impression and plan of care has been dictated as directed. Dr. Crowe I performed a history and examination of this patient, discussed the same with the dictator. I agree with the dictator's note ,documented as a scribe. Any additional findings or plans will be noted.
[2021-02-18 11:49] LABS: Basophils # (A) 0.01 X 10*3/uL (0.00-0.10); Basophils % (A) 0.1 %; Eosinophils # (A) 0 X 10*3/uL (0.04-0.35); Eosinophils % (A) 0 %; HCT 30.4 % (37.2-46.3); HGB 9.2 g/dL (12.0-15.0); Lymphocytes # (A) 0.89 X 10*3/uL (0.90-5.00); Lymphocytes % (A) 9.4 %; MCH 28.2 pg (27.0-32.0); MCHC 30.3 g/dL (32.0-37.0); MCV 93.3 fL (80.0-97.0); Mean Platelet Volume 10.4 fL (9.5-12.2); Monocytes # (A) 0.29 X 10*3/uL (0.20-1.00); Neutrophils # (A) 8.24 X 10*3/uL (1.80-7.70); Neutrophils % (A) 86.7 %; Platelet Count 303 X 10*3/uL (140-440); RBC 3.26 X 10*6/uL (4.10-5.20); WBC 9.51 X 10*3/uL (4.50-10.00)
[2021-02-18 12:15] LABS: African American GFR (CKD) 97.5 (60.0-200.0); Albumin 2.9 g/dL (3.80-4.90); Albumin/Globulin Ratio 1.12 (1.60-3.17); Anion Gap 12.1 mmol/L (4.00-12.00); BUN/Creat Ratio 22.86 Ratio (12.00-20.00); Calcium 8.6 mg/dL (8.7-10.3); Carbon Dioxide 19.9 mmol/L (21.6-31.8); Globulin 2.6 g/dL (1.6-3.3); Non-African American GFR(CKD) 84.2 (60.0-200.0); Potassium 3.7 mmol/L (3.5-5.5); Total Bilirubin 0.2 mg/dL (0.2-1.2); Total Protein 5.5 g/dL (6.2-8.2)
--- NOTE | 2021-02-18 12:23 | P.PN ---
<FranciealiyahMeri - Last Filed: 02/18/21 12:16> Subjective Progress Note Date: 02/18/21 CHIEF COMPLAINT: Fevers HISTORY OF PRESENT ILLNESS: Surgical service is following regards to patient's cholecystitis. She is Covid positive. She's been having high-grade fevers. T- max 104.1 and she is currently on a 15 L nonrebreather satting at 94 L. She is receiving IV Tylenol for the fever. She is resting in bed comfortably. She opens her eyes to her name. She appears confused. She has not been needing any pain medication per nursing staff. Per nursing she is not reported any abdominal pain. No nausea or vomiting reported. WBC 9.5 one Hgb 9.2 total bili 0.2 AST 116 ALT 271 PHYSICAL EXAM: VITAL SIGNS: Reviewed. GENERAL: Well-developed in no acute distress. HEENT: No sclera icterus. Extraocular movements grossly intact. Moist buccal mucosa. Head is atraumatic, normocephalic. ABDOMEN: Soft. Nondistended. NEUROLOGIC: Alert and oriented. Cranial nerves II through XII grossly intact. ASSESSMENT: 1. Acalculous cholecystitis 2. Covid 19 positive PLAN: -Continue conservative management -Continue IV antibiotics -Continue to monitor labs -Patient may require cholecystectomy later during this hospital stay -Further recommendations forthcoming per surgeon Physician Scenic Designer note has been reviewed by physician. Signing provider agrees with the documented findings, assessment, and plan of care. Objective - Vital Signs Vital signs: Vital Signs Temp 104.1 F H 02/18/21 10:49 Pulse 120 H 02/18/21 09:30 Resp 22 02/18/21 09:30 BP 124/69 02/18/21 09:30 Pulse Ox 94 L 02/18/21 09:30 Intake & Output 02/17/21 02/18/21 02/18/21 18:59 06:59 18:59 Intake Total 1200 Output Total 763 303 4336 Balance 700 -450 -1200 Weight 70.7 kg Intake: IV 1200 Sodium Chloride 0.9% 1, 1200 000 ml @ 100 mls/hr IV . Q10H [facility] Rx#:[id number] Output: Urine 553 [id number] Other: Voiding Method External Catheter External Catheter External Catheter - Labs CBC & Chem 7: 02/18/21 07:03 02/18/21 07:03 Labs: Abnormal Lab Results - Last 24 Hours (Table) 02/17/21 02/17/21 02/17/21 Range/Units 03:00 12:22 16:16 RBC (4.10-5.20) X 10*6/uL Hgb (12.0-15.0) g/dL Hct (37.2-46.3) % MCHC (32.0-37.0) g/dL RDW (11.5-14.5) % Immature Gran # (0.00-0.04) X 10*3/uL Neutrophils # (1.80-7.70) X 10*3/uL Lymphocytes # (0.90-5.00) X 10*3/uL Eosinophils # (0.04-0.35) X 10*3/uL Carbon Dioxide (21.6-31.8) mmol/L Anion Gap (4.00-12.00) mmol/L BUN/Creatinine Ratio (12.00-20.00) Ratio POC Glucose (mg/dL) 154 H 185 H (75-99) mg/dL Calcium (8.7-10.3) mg/dL AST (13-35) U/L ALT (8-44) U/L Total Protein (6.2-8.2) g/dL Albumin (3.80-4.90) g/dL Albumin/Globulin Ratio (1.60-3.17) g/dL Procalcitonin 3.13 H (0.02-0.09) ng/mL 02/17/21 02/18/21 02/18/21 Range/Units 20:09 07:03 07:03 RBC 3.26 L (4.10-5.20) X 10*6/uL Hgb 9.2 L (12.0-15.0) g/dL Hct 30.4 L (37.2-46.3) % MCHC 30.3 L (32.0-37.0) g/dL RDW 17.0 H (11.5-14.5) % Immature Gran # 0.08 H (0.00-0.04) X 10*3/uL Neutrophils # 8.24 H (1.80-7.70) X 10*3/uL Lymphocytes # 0.89 L (0.90-5.00) X 10*3/uL Eosinophils # 0 L (0.04-0.35) X 10*3/uL Carbon Dioxide 19.9 L (21.6-31.8) mmol/L Anion Gap 12.10 H (4.00-12.00) mmol/L BUN/Creatinine Ratio 22.86 H (12.00-20.00) Ratio POC Glucose (mg/dL) 191 H (75-99) mg/dL Calcium 8.6 L (8.7-10.3) mg/dL AST 116 H (13-35) U/L ALT 271 H (8-44) U/L Total Protein 5.5 L (6.2-8.2) g/dL Albumin 2.90 L (3.80-4.90) g/dL Albumin/Globulin Ratio 1.12 L (1.60-3.17) g/dL Procalcitonin (0.02-0.09) ng/mL 02/18/21 Range/Units 11:23 RBC (4.10-5.20) X 10*6/uL Hgb (12.0-15.0) g/dL Hct (37.2-46.3) % MCHC (32.0-37.0) g/dL RDW (11.5-14.5) % Immature Gran # (0.00-0.04) X 10*3/uL Neutrophils # (1.80-7.70) X 10*3/uL Lymphocytes # (0.90-5.00) X 10*3/uL Eosinophils # (0.04-0.35) X 10*3/uL Carbon Dioxide (21.6-31.8) mmol/L Anion Gap (4.00-12.00) mmol/L BUN/Creatinine Ratio (12.00-20.00) Ratio POC Glucose (mg/dL) 179 H (75-99) mg/dL Calcium (8.7-10.3) mg/dL AST (13-35) U/L ALT (8-44) U/L Total Protein (6.2-8.2) g/dL Albumin (3.80-4.90) g/dL Albumin/Globulin Ratio (1.60-3.17) g/dL Procalcitonin (0.02-0.09) ng/mL Microbiology - 24 Hours (Table) 02/14/21 08:00 Blood Culture - Preliminary Blood No Growth after 96 hours 02/14/21 08:16 Blood Culture - Preliminary Blood No Growth after 96 hours <Feliz Billings - Last Filed: 02/18/21 16:16> Subjective As above. Patient with ongoing fevers. Elevated liver enzymes are improved and likely on the basis of viral illness more than gallbladder issues. She is nontender currently. Continue antibiotics for possible acalculous cholecystitis. Continue diet as tolerated. Will follow. Objective - Vital Signs Vital signs: Vital Signs Temp 101.4 F H 02/18/21 14:00 Pulse 83 02/18/21 14:00 Resp 20 02/18/21 14:00 BP 98/61 02/18/21 14:00 Pulse Ox 94 L 02/18/21 14:00 Intake & Output 02/17/21 02/18/21 02/18/21 18:59 06:59 18:59 Intake Total 1200 Output Total 448 447 7448 Balance 700 -450 -1200 Weight 70.7 kg Intake: IV 1200 Sodium Chloride 0.9% 1, 1200 000 ml @ 100 mls/hr IV . Q10H [facility] Rx#:[id number] Output: Urine 536 [id number] Other: Voiding Method External Catheter External Catheter External Catheter - Labs CBC & Chem 7: 02/18/21 07:03 02/18/21 07:03 Labs: Abnormal Lab Results - Last 24 Hours (Table) 02/17/21 02/17/21 02/18/21 Range/Units 16:16 20:09 07:03 RBC 3.26 L (4.10-5.20) X 10*6/uL Hgb 9.2 L (12.0-15.0) g/dL Hct 30.4 L (37.2-46.3) % MCHC 30.3 L (32.0-37.0) g/dL RDW 17.0 H (11.5-14.5) % Immature Gran # 0.08 H (0.00-0.04) X 10*3/uL Neutrophils # 8.24 H (1.80-7.70) X 10*3/uL Lymphocytes # 0.89 L (0.90-5.00) X 10*3/uL Eosinophils # 0 L (0.04-0.35) X 10*3/uL Carbon Dioxide (21.6-31.8) mmol/L Anion Gap (4.00-12.00) mmol/L BUN/Creatinine Ratio (12.00-20.00) Ratio POC Glucose (mg/dL) 185 H 191 H (75-99) mg/dL Calcium (8.7-10.3) mg/dL AST (13-35) U/L ALT (8-44) U/L Total Protein (6.2-8.2) g/dL Albumin (3.80-4.90) g/dL Albumin/Globulin Ratio (1.60-3.17) g/dL 02/18/21 02/18/21 02/18/21 Range/Units 07:03 11:23 16:13 RBC (4.10-5.20) X 10*6/uL Hgb (12.0-15.0) g/dL Hct (37.2-46.3) % MCHC (32.0-37.0) g/dL RDW (11.5-14.5) % Immature Gran # (0.00-0.04) X 10*3/uL Neutrophils # (1.80-7.70) X 10*3/uL Lymphocytes # (0.90-5.00) X 10*3/uL Eosinophils # (0.04-0.35) X 10*3/uL Carbon Dioxide 19.9 L (21.6-31.8) mmol/L Anion Gap 12.10 H (4.00-12.00) mmol/L BUN/Creatinine Ratio 22.86 H (12.00-20.00) Ratio POC Glucose (mg/dL) 179 H 234 H (75-99) mg/dL Calcium 8.6 L (8.7-10.3) mg/dL AST 116 H (13-35) U/L ALT 271 H (8-44) U/L Total Protein 5.5 L (6.2-8.2) g/dL Albumin 2.90 L (3.80-4.90) g/dL Albumin/Globulin Ratio 1.12 L (1.60-3.17) g/dL Microbiology - Last 24 Hours (Table) 02/14/21 08:00 Blood Culture - Preliminary Blood No Growth after 96 hours 02/14/21 08:16 Blood Culture - Preliminary Blood No Growth after 96 hours Assessment and Plan (1) Acalculous cholecystitis Current Visit: Yes Status: Acute Code(s): K81.9 - CHOLECYSTITIS, UNSPECIFIED SNOMED Code(s): 00822078
--- NOTE | 2021-02-18 13:52 | P.PN ---
Subjective Progress Note Date: 02/18/21 \ 75-year-old female patient who presented to the ED because of altered mentation and diminished level of consciousness. The patient resides in a [facility]. She was hypoxic and she was also febrile and she appeared to have had aspirated some emesis. The patient got admitted to the intensive care unit. She was placed on 100% nonrebreather facemask and subsequently she tested positive for coronary artery/Covid 19. She was hypotensive and she was supported with pressors and she was placed on norepinephrine infusion. An underlying cause status is DNR/DNI. No much history could be obtained from this patient. The patient apparently has had history of COPD, diabetes mellitus, hypertension and hypothyroidism as well as schizophrenia/depression and she has history of chronic smoking. Her white cell count at time of admission was 7.1 with a sodium level of 128. She had a normal renal function. The chest X-ray showed bilateral infiltrates right more than left consistent with underlying Covid 19 related pneumonia. subsequently, the patient was transitioned to oxygen at 10 L per minute nasal cannula and her oxygen flow was ranging between 8 and 10 L. She continued to have episodes of fever. Her LFTs were abnormal and ultrasound the liver showed some hepatomegaly and there was some also thickening of the gallbladder wall. The patienthad some rise in the LFTs including AST and ALP. Nevertheless the bilirubin was within normal limits. The patient's LDH level was 670 from . with a CRP of 70.9. The patient was placed on Decadron 6 mg IV every 24 hours. The patient was placed on Lovenox 40 mg subcu every 24 hours. She was also placed on empiric antibiotic coverage with IV Zosyn 3.375 g every 8 hours. IV fluids are running at 100cc/hr of normal saline. On today's evaluation of 02/18/2021, the patient is being seen for a follow-up. Her mentation is not absolutely appropriate. She continues to be lethargic and diminished level of consciousness. No agitation. She is able to respond and answer some from simple commands. She is on a Ventimask with 15 L of oxygen by nasal cannula. The current pulse ox is around 94%. She is hemodynamically stable. She is known to have COPD, hypertension, diabetes mellitus, and hypothyroidism. She also has history of schizophrenia/depression. Monitor blood work, her LDH is CRP has not been checked or they are pending today for now. Meanwhile, the rest of the blood work shows no major abnormalities. Serum bicarb is 19. BNP is at 60 with a creatinine of 0.7. D-dimer from several days ago was 3.7 and this needs to be rechecked. There were discussed and 0.5 with a hemoglobin of 9.2. The patient is currently on 0.9 at KVO. She is also covered empirically with IV Zosyn. Pro-calcitonin was at 3.13 from 02/17/2021 the LFTs are showing improvement. The AST is down to 116, ALT is down to 271 and a love irubin is on 0.2. The cultures are negative including blood cultures 2. Objective - Vital Signs Vital signs: Vital Signs Temp 104.1 F H 02/18/21 10:49 Pulse 120 H 02/18/21 09:30 Resp 22 02/18/21 09:30 BP 124/69 02/18/21 09:30 Pulse Ox 94 L 02/18/21 09:30 Intake & Output 02/17/21 02/18/21 02/18/21 18:59 06:59 18:59 Intake Total 1200 Output Total 912 915 1909 Balance 700 -450 -1200 Weight 70.7 kg Intake: IV 1200 Sodium Chloride 0.9% 1, 1200 000 ml @ 100 mls/hr IV . Q10H [facility] Rx#:[id number] Output: Urine 974 [id number] Other: Voiding Method External Catheter External Catheter External Catheter - Exam GENERAL EXAM: Alert, frail 75-year-old female patient, on 100% nonrebreather facemask., comfortable in no apparent distress. No signs of respiratory distress. She is a mouth breather. He is quite lethargic as she has not been responding activity. She does follow some simple commands however. HEAD: Normocephalic. EYES: Normal reaction of pupils, equal size. NOSE: Clear with pink turbinates. THROAT: No erythema or exudates. NECK: No masses, no JVD. CHEST: No chest wall deformity. LUNGS: Equal air entry with scattered rhonchi, crackles in the posterior bases right greater than left CVS: S1 and S2 normal with no audible murmur, regular rhythm. ABDOMEN: No hepatosplenomegaly, normal bowel sounds, no guarding or rigidity. SPINE: No scoliosis or deformity SKIN: No rashes CENTRAL NERVOUS SYSTEM: No focal deficits, tone is normal in all 4 extremities. EXTREMITIES: There is no peripheral edema. No clubbing, no cyanosis. Peripheral pulses are intact. - Labs CBC & Chem 7: 02/18/21 07:03 02/18/21 07:03 Labs: Abnormal Lab Results - Last 24 Hours (Table) 02/17/21 02/17/21 02/17/21 Range/Units 03:00 16:16 20:09 RBC (4.10-5.20) X 10*6/uL Hgb (12.0-15.0) g/dL Hct (37.2-46.3) % MCHC (32.0-37.0) g/dL RDW (11.5-14.5) % Immature Gran # (0.00-0.04) X 10*3/uL Neutrophils # (1.80-7.70) X 10*3/uL Lymphocytes # (0.90-5.00) X 10*3/uL Eosinophils # (0.04-0.35) X 10*3/uL Carbon Dioxide (21.6-31.8) mmol/L Anion Gap (4.00-12.00) mmol/L BUN/Creatinine Ratio (12.00-20.00) Ratio POC Glucose (mg/dL) 185 H 191 H (75-99) mg/dL Calcium (8.7-10.3) mg/dL AST (13-35) U/L ALT (8-44) U/L Total Protein (6.2-8.2) g/dL Albumin (3.80-4.90) g/dL Albumin/Globulin Ratio (1.60-3.17) g/dL Procalcitonin 3.13 H (0.02-0.09) ng/mL 02/18/21 02/18/21 02/18/21 Range/Units 07:03 07:03 11:23 RBC 3.26 L (4.10-5.20) X 10*6/uL Hgb 9.2 L (12.0-15.0) g/dL Hct 30.4 L (37.2-46.3) % MCHC 30.3 L (32.0-37.0) g/dL RDW 17.0 H (11.5-14.5) % Immature Gran # 0.08 H (0.00-0.04) X 10*3/uL Neutrophils # 8.24 H (1.80-7.70) X 10*3/uL Lymphocytes # 0.89 L (0.90-5.00) X 10*3/uL Eosinophils # 0 L (0.04-0.35) X 10*3/uL Carbon Dioxide 19.9 L (21.6-31.8) mmol/L Anion Gap 12.10 H (4.00-12.00) mmol/L BUN/Creatinine Ratio 22.86 H (12.00-20.00) Ratio POC Glucose (mg/dL) 179 H (75-99) mg/dL Calcium 8.6 L (8.7-10.3) mg/dL AST 116 H (13-35) U/L ALT 271 H (8-44) U/L Total Protein 5.5 L (6.2-8.2) g/dL Albumin 2.90 L (3.80-4.90) g/dL Albumin/Globulin Ratio 1.12 L (1.60-3.17) g/dL Procalcitonin (0.02-0.09) ng/mL Microbiology - Last 24 Hours (Table) 02/14/21 08:00 Blood Culture - Preliminary Blood No Growth after 96 hours 02/14/21 08:16 Blood Culture - Preliminary Blood No Growth after 96 hours Assessment and Plan Plan: 1 Acute mental status changes, likely due to covid 19 infection metabolic encephalopathy. Mental status is improving and the patient was able to follow commands and answer simple questions without any major difficulties. No major changes in her condition since yesterday and the patient has a DNR/DNI CODE STATUS. 2 Acute hypoxic respiratory failure secondary to acute CoVID 19 pneumonia, currently 100% nonrebreather facemask 3 Hypotension, which may relate to underlying sepsis. Recovered and off pressors And the patient required pressors initially at time of admission and currently the patient is off vasopressors. 4 History of hyperlipidemia. 5 History of hypertension. 6 History of hypothyroidism. 7 Possible history of underlying COPD. the patient is currently on a combination of Spiriva and Symbicort 8 History of diabetes mellitus. 9 History of ongoing tobacco use with nicotine addiction. 10 History of depression and schizophrenia. 11 transaminitis, could be related to COVID. Underlying cholecystitis is felt to be less likely, LFTs are improving. Pro-calcitonin level is elevated and this needs to be monitored. Plan Keep the patient 100% nonrebreather facemask IV fluids at 75 mL an hour normal saline. Aspiration precautions Continue the IV Decadron 6 mg every 24 hours Stop Lasix Monitor liver function tests him on levels are improving Continue IV Zosyn as an empiric antibiotic coverage and check a pro-calcitonin levels Repeat inflammatory markers for tomorrow, check d-dimer tomorrow DNR/DNI CODE STATUS
[2021-02-18 16:14] LABS: Glucose,Whole Blood 234 mg/dL (75-99)
--- NOTE | 2021-02-18 18:40 | P.PN ---
Subjective Progress Note Date: 02/18/21 Sofía Leslie, is a 75-year-old female patient of Dr. Jacob who presented to [facility] emergency room with a chief complaint of being and responsive, patient was last seen at the nursing facility where she leaves at 3 AM, she was found in the morning and responsive EMS were called pulse ox was in the 80s, and temperature was 103 she was evaluated in the emergency room vital examination on arrival to emergency room reveals a temperature of 101.2 pulse 124 respiration 28 blood pressure 129/74 pulse ox 95% on nonrebreather mask at 15 L her white blood count was 7.1 hemoglobin 10.2 platelet count 338 sodium 128 glucose 187 AST and ALT normal BUN 15 creatinine 0.79 coronavirus PCR was positive. EKG was done in the emergency room and revealed sinus tachycardia with left anterior fascicular block and possible old septal infarct as evidenced by poor R-wave progression in the anterior leads. Chest x-ray revealed mild cardiomegaly with small bilateral pleural effusions, right upper lung and bybasilar acute infiltrates. Patient was admitted to intensive care unit pulmonary consultation was requested. Patient is unable to provide any information for review of system and past med ical history. From review of her chart, she has a past medical history of hypertension with hypertensive heart disease, history of hyperlipidemia, history of hypothyroidism, history of pulmonary hypertension, history of COPD, and history of diabetes Mellitus. On 02/15/2021 patient was seen and examined in the ICU she is alert slightly confused in no apparent distress she is complaining of nose congestion she stated that her shortness of breath is better she is still having occasional cough she is complaining of tenderness in the right heel area site of a small open ulcer, otherwise she denies any complaints there is no fever or chills no headache or dizziness no chest pain no nausea or vomiting no abdominal pain no diarrhea no blood in the stools and no urinary symptoms. On 02/16/2021 patient was seen and examined in the ICU she is alert and oriented 3 in no apparent distress she is complaining of abdominal discomfort mostly in the epigastric area she is still complaining of cough and shortness of breath otherwise she denies any complaints there is no fever or chills no headache or dizziness no chest pain no nausea or vomiting no diarrhea no blood in the stools no burning with urination no frequency or urgency and no hematuria. Liver enzymes are significantly elevated today. On 02/17/2021 patient was seen and examined on the medical floor she is alert and oriented in no apparent distress, she is still complaining of cough, shortness of breath, and abdominal discomfort otherwise she denies any complaints there is no fever or chills no headache or dizziness no chest pain no nausea or vomiting, no diarrhea no blood in the stools no burning with urination no frequency or urgency and no hematuria. On 02/18/2021 patient was seen and examined on the medical floor she is alert slightly confused in no apparent distress, she was having episodes of severe elevation in her temperature up to 104.1 today her blood pressure is 98/61 pulse ox 94% on 15 L nasal cannula pulmonary critical care notified and evaluated the patient, at this time I will repeat the blood culture and sputum culture I will notify infectious disease to reevaluate patient in regard to significant mara vation in her temperature today otherwise patient is also complaining of shortness of breath she denies any other complaints at this time there is no headache or dizziness no chest pain no nausea or vomiting no abdominal pain no diarrhea no blood in the stools no burning with urination no frequency or urgency no hematuria Objective - Vital Signs Vital signs: Vital Signs Temp 101.4 F H 02/18/21 14:00 Pulse 83 02/18/21 14:00 Resp 20 02/18/21 14:00 BP 98/61 02/18/21 14:00 Pulse Ox 94 L 02/18/21 14:00 Intake & Output 02/17/21 02/18/21 02/18/21 18:59 06:59 18:59 Intake Total 1200 Output Total 106 866 3215 Balance 700 -450 -1200 Weight 70.7 kg Intake: IV 1200 Sodium Chloride 0.9% 1, 1200 000 ml @ 100 mls/hr IV . Q10H [facility] Rx#:[id number] Output: Urine [phone] Other: Voiding Method External Catheter External Catheter External Catheter - Exam In general patient is alert responsive in no apparent distress, currently she is maintained on oxygen 10 L high flow HEENT head normocephalic and atraumatic Neck is supple no JVD no goiter no lymphadenopathy Chest exam reveals coarse crackles in both lung conley with wheezing Cardiac exam reveals regular heart sounds S1 and S2 no gallops no murmurs Abdomen is soft nontender no organomegaly with normal bowel sounds Extremity exam reveals no edema no cyanosis or clubbing, there is a small ulcer on the lateral side of the right heel area with tenderness Neurological examination is limited but does not show any gross focal deficit - Labs CBC & Chem 7: 02/18/21 07:03 02/18/21 07:03 Labs: Abnormal Lab Results - Last 24 Hours (Table) 02/17/21 02/18/21 02/18/21 Range/Units 20:09 07:03 07:03 RBC 3.26 L (4.10-5.20) X 10*6/uL Hgb 9.2 L (12.0-15.0) g/dL Hct 30.4 L (37.2-46.3) % MCHC 30.3 L (32.0-37.0) g/dL RDW 17.0 H (11.5-14.5) % Immature Gran # 0.08 H (0.00-0.04) X 10*3/uL Neutrophils # 8.24 H (1.80-7.70) X 10*3/uL Lymphocytes # 0.89 L (0.90-5.00) X 10*3/uL Eosinophils # 0 L (0.04-0.35) X 10*3/uL Carbon Dioxide 19.9 L (21.6-31.8) mmol/L Anion Gap 12.10 H (4.00-12.00) mmol/L BUN/Creatinine Ratio 22.86 H (12.00-20.00) Ratio POC Glucose (mg/dL) 191 H (75-99) mg/dL Calcium 8.6 L (8.7-10.3) mg/dL AST 116 H (13-35) U/L ALT 271 H (8-44) U/L Total Protein 5.5 L (6.2-8.2) g/dL Albumin 2.90 L (3.80-4.90) g/dL Albumin/Globulin Ratio 1.12 L (1.60-3.17) g/dL 02/18/21 02/18/21 Range/Units 11:23 16:13 RBC (4.10-5.20) X 10*6/uL Hgb (12.0-15.0) g/dL Hct (37.2-46.3) % MCHC (32.0-37.0) g/dL RDW (11.5-14.5) % Immature Gran # (0.00-0.04) X 10*3/uL Neutrophils # (1.80-7.70) X 10*3/uL Lymphocytes # (0.90-5.00) X 10*3/uL Eosinophils # (0.04-0.35) X 10*3/uL Carbon Dioxide (21.6-31.8) mmol/L Anion Gap (4.00-12.00) mmol/L BUN/Creatinine Ratio (12.00-20.00) Ratio POC Glucose (mg/dL) 179 H 234 H (75-99) mg/dL Calcium (8.7-10.3) mg/dL AST (13-35) U/L ALT (8-44) U/L Total Protein (6.2-8.2) g/dL Albumin (3.80-4.90) g/dL Albumin/Globulin Ratio (1.60-3.17) g/dL Microbiology - Last 24 Hours (Table) 02/14/21 08:00 Blood Culture - Preliminary Blood No Growth after 96 hours 02/14/21 08:16 Blood Culture - Preliminary Blood No Growth after 96 hours Assessment and Plan Plan: Acute Covid 19 infection with evidence of multifocal pneumonia Acute hypoxic respiratory failure Underlying history of hypertension Underlying history of hyperlipidemia Underlying history of hypothyroidism Underlying history of pulmonary hypertension Underlying history of hypertensive heart disease Underlying history of schizophrenia, major depression, and paranoid personality disorder per chart Small ulcer on the lateral side of the right heel area with tenderness Will consult vascular surgery for possible debridement Elevated liver enzymes will stop Lipitor at this time will check liver ultrasound and monitor closely, ultrasound revealing evidence of acute cholecystitis, patient maintained on IV Zosyn, surgical consultation requested Patient is admitted to intensive care unit She was started on IV dexamethasone and subcu Lovenox She was started on norepinephrine drip She was given a dose of IV Rocephin 2 g in the emergency room Pulmonary critical care consultation and infectious disease requested requested Patient is unable to provide any information, all past medical history is derived from review of her chart
[2021-02-18 19:58] LABS: Glucose,Whole Blood 146 mg/dL (75-99)
--- NOTE | 2021-02-19 01:54 | PN ---
PROGRESS NOTE DATE OF SERVICE: 02/18/2021 REASON FOR FOLLOWUP: possible cholecystitis. INTERVAL HISTORY: The patient has been running a low-grade fever. The patient noticed to be slightly lethargic and has been on non-rebreather. No vomiting, diarrhea, or any other changes reported by the nursing staff. Patient herself was unable to provide any history. PHYSICAL EXAMINATION: Blood pressure is 136/84, pulse of 89, temperature 99.3. She is 93% on high-flow oxygen. General description is an elderly female lying in bed in no distress. Respiratory system: Unlabored breathing, decreased intensity in breath sounds. No wheeze. Heart S1, S2. Regular rate and rhythm. Abdomen soft, no tenderness. LABS: Hemoglobin 9.1, white count 10.51, BUN of 16, creatinine 0.7. DIAGNOSTIC IMPRESSION AND PLAN: Patient with a fever which is multifactorial. This patient has been diagnosed with Covid plus aspiration pneumonia and also with concern for cholecystitis, currently being managed conservatively on Zosyn. Blood culture has been repeated. Those will be followed. Monitor clinical course closely. MMODL / IJN: [id number] /
[2021-02-19] MEDS: SODIUM CHLORIDE 0.9% 1,000 ML IV SCH ×2 (05:10→14:26)
[2021-02-19 07:15] LABS: Glucose,Whole Blood 85 mg/dL (75-99)
[2021-02-19] MEDS: INSULIN ASPART (NovoLOG) 100 UNIT/ML VIAL SQ SCH ×4 (07:30→21:54)
[2021-02-19] MEDS: polyethylene glycoL 3350 17 GM POWD.PACK PO SCH (08:24)
[2021-02-19] MEDS: PANTOPRAZOLE 40 MG/10 ML VIAL IV SCH (08:25)
[2021-02-19] MEDS: PIPERACILLIN-TAZOBACTAM 3.375 GM in SODIUM CHLORIDE 0.9% 100 ML IVPB SCH ×2 (08:25→16:21)
[2021-02-19] MEDS: ASCORBIC ACID 500 MG TAB PO SCH (08:26)
[2021-02-19] MEDS: BACLOFEN 10 MG TAB PO SCH ×2 (08:26→21:55)
[2021-02-19] MEDS: GABAPENTIN 300 MG CAP PO SCH ×3 (08:26→21:55)
[2021-02-19] MEDS: CLOPIDOGREL 75 MG TAB PO SCH (08:26)
[2021-02-19] MEDS: metFORMIN 500 MG TAB PO SCH ×2 (08:26→21:54)
[2021-02-19] MEDS: LEVOTHYROXINE 50 MCG TAB PO SCH (08:26)
[2021-02-19] MEDS: DEXAMETHASONE SOD PHOSPHATE 10 MG/ML 1 ML VIAL IV SCH (08:26)
[2021-02-19] MEDS: ENOXAPARIN 40 MG/0.4 ML SYRINGE SQ SCH (08:26)
[2021-02-19] MEDS: amLODIPine 5 MG TAB PO SCH (08:26)
[2021-02-19] MEDS: DOCUSATE 100 MG CAP PO SCH ×2 (08:26→21:54)
[2021-02-19] MEDS: buPROPion SR 150 MG TABLET.ER PO SCH ×2 (08:27→21:53)
[2021-02-19] MEDS: CHOLECALCIFEROL 10 MCG (400 IU) TABLET PO SCH (08:27)
[2021-02-19] MEDS: risperiDONE 0.5 MG TAB PO SCH ×2 (08:27→21:53)
[2021-02-19] MEDS: ZINC SULFATE 220 MG CAP PO SCH (08:27)
[2021-02-19] MEDS: guaiFENesin SYRUP 100MG/5ML 200 MG/10 ML CUP PO SCH ×2 (08:27→21:53)
[2021-02-19] MEDS: FLUTICASONE 50MCG/SPRAY NASAL 16GM EA NOSTRIL SCH (08:28)
[2021-02-19] MEDS: SYMBICORT 80-4.5 MCG INHALER INHALATION SCH ×2 (09:20→21:33)
[2021-02-19] MEDS: ALBUTEROL HFA INHALER INHALATION SCH ×4 (09:20→21:33)
[2021-02-19] MEDS: TIOTROPIUM 2.5 MCG INHALER INHALATION SCH (09:20)
--- NOTE | 2021-02-19 11:01 | P.PN ---
<Meri Koch - Last Filed: 02/19/21 10:56> Subjective Progress Note Date: 02/19/21 CHIEF COMPLAINT: Fevers HISTORY OF PRESENT ILLNESS: Surgical service is following regards to patient's cholecystitis. She is Covid positive. Patient is afebrile this morning. However, she did have a temp of 102.4 last night. She remains on nonrebreather 15 L. Patient resting comfortably in bed. Per nursing staff patient has had no nausea or vomiting and is not reporting any abdominal pain. She is able to eat small amounts of food such as a Magic cup. No new labs for today PHYSICAL EXAM: VITAL SIGNS: Reviewed. GENERAL: Well-developed in no acute distress. HEENT: No sclera icterus. Extraocular movements grossly intact. Moist buccal mucosa. Head is atraumatic, normocephalic. ABDOMEN: Soft. Nondistended. NEUROLOGIC: Sleeping comfortably ASSESSMENT: 1. Acalculous cholecystitis 2. Elevated liver enzymes are improving and likely on the basis of a viral illness more than gallbladder issues. 3. Covid 19 positive PLAN: -Continue conservative management -Continue antibiotics for possible acalculous cholecystitis -Continue diet as tolerated -No surgical intervention planned at this time Physician Buying Intern note has been reviewed by physician. Signing provider agrees with the documented findings, assessment, and plan of care. Objective - Vital Signs Vital signs: Vital Signs Temp 98.6 F 02/19/21 06:02 Pulse 75 02/19/21 06:02 Resp 18 02/19/21 06:02 BP 117/73 02/19/21 06:02 Pulse Ox 92 L 02/19/21 06:02 Intake & Output 02/18/21 02/19/21 02/19/21 18:59 06:59 18:59 Output Total 1200 200 Balance -1200 -200 Output: Urine 1200 200 Other: Voiding Method External Catheter External Catheter - Labs CBC & Chem 7: 02/18/21 07:03 02/18/21 07:03 Labs: Abnormal Lab Results - Last 24 Hours (Table) 02/18/21 02/18/21 02/18/21 Range/Units 07:03 07:03 11:23 RBC 3.26 L (4.10-5.20) X 10*6/uL Hgb 9.2 L (12.0-15.0) g/dL Hct 30.4 L (37.2-46.3) % MCHC 30.3 L (32.0-37.0) g/dL RDW 17.0 H (11.5-14.5) % Immature Gran # 0.08 H (0.00-0.04) X 10*3/uL Neutrophils # 8.24 H (1.80-7.70) X 10*3/uL Lymphocytes # 0.89 L (0.90-5.00) X 10*3/uL Eosinophils # 0 L (0.04-0.35) X 10*3/uL Carbon Dioxide 19.9 L (21.6-31.8) mmol/L Anion Gap 12.10 H (4.00-12.00) mmol/L BUN/Creatinine Ratio 22.86 H (12.00-20.00) Ratio POC Glucose (mg/dL) 179 H (75-99) mg/dL Calcium 8.6 L (8.7-10.3) mg/dL AST 116 H (13-35) U/L ALT 271 H (8-44) U/L Total Protein 5.5 L (6.2-8.2) g/dL Albumin 2.90 L (3.80-4.90) g/dL Albumin/Globulin Ratio 1.12 L (1.60-3.17) g/dL 02/18/21 02/18/21 Range/Units 16:13 19:56 RBC (4.10-5.20) X 10*6/uL Hgb (12.0-15.0) g/dL Hct (37.2-46.3) % MCHC (32.0-37.0) g/dL RDW (11.5-14.5) % Immature Gran # (0.00-0.04) X 10*3/uL Neutrophils # (1.80-7.70) X 10*3/uL Lymphocytes # (0.90-5.00) X 10*3/uL Eosinophils # (0.04-0.35) X 10*3/uL Carbon Dioxide (21.6-31.8) mmol/L Anion Gap (4.00-12.00) mmol/L BUN/Creatinine Ratio (12.00-20.00) Ratio POC Glucose (mg/dL) 234 H 146 H (75-99) mg/dL Calcium (8.7-10.3) mg/dL AST (13-35) U/L ALT (8-44) U/L Total Protein (6.2-8.2) g/dL Albumin (3.80-4.90) g/dL Albumin/Globulin Ratio (1.60-3.17) g/dL Microbiology - Last 24 Hours (Table) 02/14/21 08:00 Blood Culture - Preliminary Blood No Growth after 120 hours 02/14/21 08:16 Blood Culture - Preliminary Blood No Growth after 120 hours <Feliz Billings - Last Filed: 02/19/21 18:45> Subjective Patient remains febrile intermittently. Still short of breath with hypoxia. Continue antibiotics for possible cholecystitis. No surgical intervention planned at this time or in the near future. Patient's condition unfortunately quite poor. We'll sign off. Please call if needed. Objective - Vital Signs Vital signs: Vital Signs Temp 99.8 F H 02/19/21 14:54 Pulse 96 02/19/21 14:54 Resp 14 02/19/21 14:54 BP 123/74 02/19/21 14:54 Pulse Ox 83 L 02/19/21 14:54 Intake & Output 02/18/21 02/19/21 02/19/21 18:59 06:59 18:59 Output Total 1200 200 Balance -1200 -200 Output: Urine 1200 200 Other: Voiding Method External Catheter External Catheter - Labs CBC & Chem 7: 02/18/21 07:03 02/19/21 15:46 Labs: Abnormal Lab Results - Last 24 Hours (Table) 02/18/21 02/19/21 02/19/21 Range/Units 19:56 12:09 15:46 D-Dimer 3.83 H (<0.60) mg/L FEU Sodium (137-145) mmol/L Potassium (3.5-5.1) mmol/L Chloride (98-107) mmol/L Glucose (74-99) mg/dL POC Glucose (mg/dL) 146 H 136 H (75-99) mg/dL Lactate Dehydrogenase (313-618) U/L C-Reactive Protein (<10.0) mg/L 02/19/21 02/19/21 Range/Units 15:46 17:24 D-Dimer (<0.60) mg/L FEU Sodium 146 H (137-145) mmol/L Potassium 3.2 L (3.5-5.1) mmol/L Chloride 111 H (98-107) mmol/L Glucose 192 H (74-99) mg/dL POC Glucose (mg/dL) 189 H (75-99) mg/dL Lactate Dehydrogenase 1154 H (313-618) U/L C-Reactive Protein 165.3 H (<10.0) mg/L Microbiology - Last 24 Hours (Table) 02/14/21 08:00 Blood Culture - Preliminary Blood No Growth after 120 hours 02/14/21 08:16 Blood Culture - Preliminary Blood No Growth after 120 hours Assessment and Plan (1) Acalculous cholecystitis Current Visit: Yes Status: Acute Code(s): K81.9 - CHOLECYSTITIS, UNSPECIFIED SNOMED Code(s): 71463564
[2021-02-19 12:14] LABS: Glucose,Whole Blood 136 mg/dL (75-99)
--- NOTE | 2021-02-19 14:39 | P.PN ---
Subjective Progress Note Date: 02/19/21 Sofía Leslie, is a 75-year-old female patient of Dr. Jacob who presented to [facility] emergency room with a chief complaint of being and responsive, patient was last seen at the nursing facility where she leaves at 3 AM, she was found in the morning and responsive EMS were called pulse ox was in the 80s, and temperature was 103 she was evaluated in the emergency room vital examination on arrival to emergency room reveals a temperature of 101.2 pulse 124 respiration 28 blood pressure 129/74 pulse ox 95% on nonrebreather mask at 15 L her white blood count was 7.1 hemoglobin 10.2 platelet count 338 sodium 128 glucose 187 AST and ALT normal BUN 15 creatinine 0.79 coronavirus PCR was positive. EKG was done in the emergency room and revealed sinus tachycardia with left anterior fascicular block and possible old septal infarct as evidenced by poor R-wave progression in the anterior leads. Chest x-ray revealed mild cardiomegaly with small bilateral pleural effusions, right upper lung and bybasilar acute infiltrates. Patient was admitted to intensive care unit pulmonary consultation was requested. Patient is unable to provide any information for review of system and past med ical history. From review of her chart, she has a past medical history of hypertension with hypertensive heart disease, history of hyperlipidemia, history of hypothyroidism, history of pulmonary hypertension, history of COPD, and history of diabetes Mellitus. On 02/15/2021 patient was seen and examined in the ICU she is alert slightly confused in no apparent distress she is complaining of nose congestion she stated that her shortness of breath is better she is still having occasional cough she is complaining of tenderness in the right heel area site of a small open ulcer, otherwise she denies any complaints there is no fever or chills no headache or dizziness no chest pain no nausea or vomiting no abdominal pain no diarrhea no blood in the stools and no urinary symptoms. On 02/16/2021 patient was seen and examined in the ICU she is alert and oriented 3 in no apparent distress she is complaining of abdominal discomfort mostly in the epigastric area she is still complaining of cough and shortness of breath otherwise she denies any complaints there is no fever or chills no headache or dizziness no chest pain no nausea or vomiting no diarrhea no blood in the stools no burning with urination no frequency or urgency and no hematuria. Liver enzymes are significantly elevated today. On 02/17/2021 patient was seen and examined on the medical floor she is alert and oriented in no apparent distress, she is still complaining of cough, shortness of breath, and abdominal discomfort otherwise she denies any complaints there is no fever or chills no headache or dizziness no chest pain no nausea or vomiting, no diarrhea no blood in the stools no burning with urination no frequency or urgency and no hematuria. On 02/18/2021 patient was seen and examined on the medical floor she is alert slightly confused in no apparent distress, she was having episodes of severe elevation in her temperature up to 104.1 today her blood pressure is 98/61 pulse ox 94% on 15 L nasal cannula pulmonary critical care notified and evaluated the patient, at this time I will repeat the blood culture and sputum culture I will notify infectious disease to reevaluate patient in regard to significant mara vation in her temperature today otherwise patient is also complaining of shortness of breath she denies any other complaints at this time there is no headache or dizziness no chest pain no nausea or vomiting no abdominal pain no diarrhea no blood in the stools no burning with urination no frequency or urgency no hematuria On 02/19/2021 patient was seen and examined on the medical floor she is alert and oriented in no apparent distress her fever has somewhat subsided this morning temperature is 98.6 and 100.7 it was significantly more elevated yesterday her pulse is 75 respiration 18 blood pressure 117/73 pulse ox 92% on 15 L nonrebreather mask she is complaining of cough and shortness of breath otherwise she denies any complaints there is no headache or dizziness no chest pain no nausea or vomiting no abdominal pain no diarrhea no blood in the stools no burning with urination no frequency or urgency and no hematuria pulmonary critical care, surgery, and infectious disease are following closely Objective - Vital Signs Vital signs: Vital Signs Temp 98.6 F 02/19/21 06:02 Pulse 75 02/19/21 06:02 Resp 18 02/19/21 06:02 BP 117/73 02/19/21 06:02 Pulse Ox 92 L 02/19/21 06:02 Intake & Output 02/18/21 02/19/21 02/19/21 18:59 06:59 18:59 Output Total 1200 200 Balance -1200 -200 Output: Urine 1200 200 Other: Voiding Method External Catheter - Exam In general patient is alert responsive in no apparent distress, currently she is maintained on oxygen 10 L high flow HEENT head normocephalic and atraumatic Neck is supple no JVD no goiter no lymphadenopathy Chest exam reveals coarse crackles in both lung conley with wheezing Cardiac exam reveals regular heart sounds S1 and S2 no gallops no murmurs Abdomen is soft nontender no organomegaly with normal bowel sounds Extremity exam reveals no edema no cyanosis or clubbing, there is a small ulcer on the lateral side of the right heel area with tenderness Neurological examination is limited but does not show any gross focal deficit - Labs CBC & Chem 7: 02/18/21 07:03 02/18/21 07:03 Labs: Abnormal Lab Results - Last 24 Hours (Table) 02/18/21 02/18/21 02/18/21 Range/Units 07:03 07:03 11:23 RBC 3.26 L (4.10-5.20) X 10*6/uL Hgb 9.2 L (12.0-15.0) g/dL Hct 30.4 L (37.2-46.3) % MCHC 30.3 L (32.0-37.0) g/dL RDW 17.0 H (11.5-14.5) % Immature Gran # 0.08 H (0.00-0.04) X 10*3/uL Neutrophils # 8.24 H (1.80-7.70) X 10*3/uL Lymphocytes # 0.89 L (0.90-5.00) X 10*3/uL Eosinophils # 0 L (0.04-0.35) X 10*3/uL Carbon Dioxide 19.9 L (21.6-31.8) mmol/L Anion Gap 12.10 H (4.00-12.00) mmol/L BUN/Creatinine Ratio 22.86 H (12.00-20.00) Ratio POC Glucose (mg/dL) 179 H (75-99) mg/dL Calcium 8.6 L (8.7-10.3) mg/dL AST 116 H (13-35) U/L ALT 271 H (8-44) U/L Total Protein 5.5 L (6.2-8.2) g/dL Albumin 2.90 L (3.80-4.90) g/dL Albumin/Globulin Ratio 1.12 L (1.60-3.17) g/dL 02/18/21 02/18/21 Range/Units 16:13 19:56 RBC (4.10-5.20) X 10*6/uL Hgb (12.0-15.0) g/dL Hct (37.2-46.3) % MCHC (32.0-37.0) g/dL RDW (11.5-14.5) % Immature Gran # (0.00-0.04) X 10*3/uL Neutrophils # (1.80-7.70) X 10*3/uL Lymphocytes # (0.90-5.00) X 10*3/uL Eosinophils # (0.04-0.35) X 10*3/uL Carbon Dioxide (21.6-31.8) mmol/L Anion Gap (4.00-12.00) mmol/L BUN/Creatinine Ratio (12.00-20.00) Ratio POC Glucose (mg/dL) 234 H 146 H (75-99) mg/dL Calcium (8.7-10.3) mg/dL AST (13-35) U/L ALT (8-44) U/L Total Protein (6.2-8.2) g/dL Albumin (3.80-4.90) g/dL Albumin/Globulin Ratio (1.60-3.17) g/dL Microbiology - Last 24 Hours (Table) 02/14/21 08:00 Blood Culture - Preliminary Blood No Growth after 96 hours 02/14/21 08:16 Blood Culture - Preliminary Blood No Growth after 96 hours Assessment and Plan Plan: Acute Covid 19 infection with evidence of multifocal pneumonia Acute hypoxic respiratory failure Underlying history of hypertension Underlying history of hyperlipidemia Underlying history of hypothyroidism Underlying history of pulmonary hypertension Underlying history of hypertensive heart disease Underlying history of schizophrenia, major depression, and paranoid personality disorder per chart Small ulcer on the lateral side of the right heel area with tenderness Will consult vascular surgery for possible debridement Elevated liver enzymes will stop Lipitor at this time will check liver ultrasound and monitor closely, ultrasound revealing evidence of acute cholecystitis, patient maintained on IV Zosyn, surgical consultation requested Patient is admitted to intensive care unit She was started on IV dexamethasone and subcu Lovenox She was started on norepinephrine drip She was given a dose of IV Rocephin 2 g in the emergency room Pulmonary critical care consultation and infectious disease requested requested Patient is unable to provide any information, all past medical history is derived from review of her chart
--- NOTE | 2021-02-19 15:36 | P.PN ---
Subjective Progress Note Date: 02/19/21 \ 75-year-old female patient who presented to the ED because of altered mentation and diminished level of consciousness. The patient resides in a retirement. She was hypoxic and she was also febrile and she appeared to have had aspirated some emesis. The patient got admitted to the intensive care unit. She was placed on 100% nonrebreather facemask and subsequently she tested positive for coronary artery/Covid 19. She was hypotensive and she was supported with pressors and she was placed on norepinephrine infusion. An underlying cause status is DNR/DNI. No much history could be obtained from this patient. The patient apparently has had history of COPD, diabetes mellitus, hypertension and hypothyroidism as well as schizophrenia/depression and she has history of chronic smoking. Her white cell count at time of admission was 7.1 with a sodium level of 128. She had a normal renal function. The chest X-ray showed bilateral infiltrates right more than left consistent with underlying Covid 19 related pneumonia. subsequently, the patient was transitioned to oxygen at 10 L per minute nasal cannula and her oxygen flow was ranging between 8 and 10 L. She continued to have episodes of fever. Her LFTs were abnormal and ultrasound the liver showed some hepatomegaly and there was some also thickening of the gallbladder wall. The patienthad some rise in the LFTs including AST and ALP. Nevertheless the bilirubin was within normal limits. The patient's LDH level was 670 from . with a CRP of 70.9. The patient was placed on Decadron 6 mg IV every 24 hours. The patient was placed on Lovenox 40 mg subcu every 24 hours. She was also placed on empiric antibiotic coverage with IV Zosyn 3.375 g every 8 hours. IV fluids are running at 100cc/hr of normal saline. On today's evaluation of 02/18/2021, the patient is being seen for a follow-up. Her mentation is not absolutely appropriate. She continues to be lethargic and diminished level of consciousness. No agitation. She is able to respond and answer some from simple commands. She is on a Ventimask with 15 L of oxygen by nasal cannula. The current pulse ox is around 94%. She is hemodynamically stable. She is known to have COPD, hypertension, diabetes mellitus, and hypothyroidism. She also has history of schizophrenia/depression. Monitor blood work, her LDH is CRP has not been checked or they are pending today for now. Meanwhile, the rest of the blood work shows no major abnormalities. Serum bicarb is 19. BNP is at 60 with a creatinine of 0.7. D-dimer from several days ago was 3.7 and this needs to be rechecked. There were discussed and 0.5 with a hemoglobin of 9.2. The patient is currently on 0.9 at KVO. She is also covered empirically with IV Zosyn. Pro-calcitonin was at 3.13 from 02/17/2021 the LFTs are showing improvement. The AST is down to 116, ALT is down to 271 and a love irubin is on 0.2. The cultures are negative including blood cultures 2. 02/19/2021, the patient is doing poorly. After being on a Ventimask , the patient was briefly tried on high flow oxygen at 15 L and the patient failed and significant the patient had 3 based on the percent nonrebreather facemask. I saw the patient. She has crackles throughout the lungs bilaterally. She was quite short of breath. She was congested. She was unable to speak in full sentences. Her pulse ox was in the low 90s. At that point, I ordered a chest x-ray which with interval worsening and the patient has developed diffuse breath and pulmonary infiltrates and complaining the x-rays, there is obvious worsening in the diffuse bilateral pulmonary infiltration. The patient remains on IV Zosyn as a broad-spectrum antibiotic coverage. Labs from today are still pending for now. She is unfortunately doing poorly. She has a DNR/DNI CODE STATUS. She has history of schizophrenia. There is some use of accessory muscles of breathing also. She also is altered. She is lethargic. She is weak. She is at a higher risk of aspiration. Objective - Vital Signs Vital signs: Vital Signs Temp 100.7 F H 02/19/21 10:23 Pulse 99 02/19/21 10:23 Resp 14 02/19/21 10:23 BP 130/71 02/19/21 10:23 Pulse Ox 92 L 02/19/21 11:46 Intake & Output 02/18/21 02/19/21 02/19/21 18:59 06:59 18:59 Output Total 1200 200 Balance -1200 -200 Output: Urine 1200 200 Other: Voiding Method External Catheter External Catheter - Exam GENERAL EXAM: Alert, frail 75-year-old female patient, on 100% nonrebreather facemask., comfortable in no apparent distress. Patient is in [id number] degree of of respiratory distress. She is a mouth breather. He is quite lethargic as she has not been responding activity. She does follow some simple commands however. I felt that the patient is obviously worse compared to yesterday and she is having more difficulty breathing. She was unable to tolerate coming off the 100% nonrebreather., The crackles and diffuse throughout the lung his bilaterally heard anteriorly and posteriorly. HEAD: Normocephalic. EYES: Normal reaction of pupils, equal size. NOSE: Clear with pink turbinates. THROAT: No erythema or exudates. NECK: No masses, no JVD. CHEST: No chest wall deformity. LUNGS: Equal air entry with scattered rhonchi, crackles in the posterior bases right greater than left CVS: S1 and S2 normal with no audible murmur, regular rhythm. ABDOMEN: No hepatosplenomegaly, normal bowel sounds, no guarding or rigidity. SPINE: No scoliosis or deformity SKIN: No rashes CENTRAL NERVOUS SYSTEM: No focal deficits, tone is normal in all 4 extremities. The patient is very much lethargic and somnolent at times confused. EXTREMITIES: There is no peripheral edema. No clubbing, no cyanosis. Peripheral pulses are intact. - Labs CBC & Chem 7: 02/18/21 07:03 02/18/21 07:03 Labs: Abnormal Lab Results - Last 24 Hours (Table) 02/18/21 02/18/21 02/19/21 Range/Units 16:13 19:56 12:09 POC Glucose (mg/dL) 234 H 146 H 136 H (75-99) mg/dL Microbiology - Last 24 Hours (Table) 02/14/21 08:00 Blood Culture - Preliminary Blood No Growth after 120 hours 02/14/21 08:16 Blood Culture - Preliminary Blood No Growth after 120 hours Assessment and Plan Plan: 1 Acute mental status changes, likely due to covid 19 infection metabolic encephalopathy. Mental status is improving and the patient was able to follow commands and answer simple questions without any major difficulties. No major changes in her condition since yesterday and the patient has a DNR/DNI CODE STATUS. Unfortunately, the patient's condition decompensated. She is more lethargic and she is hesitant to worsening respiratory status and respiratory failure. 2 Acute hypoxic respiratory failure secondary to acute CoVID 19 pneumonia, currently 100% nonrebreather facemask, chest x-ray showing diffuse breath and pulmonary infiltrates with obvious interval worsening. She is on IV Zosyn for any potential aspiration. I think there predominant presentation is progression of her underlying Covid 19 pneumonia. 3 Hypotension, which may relate to underlying sepsis. Recovered and off pressors And the patient required pressors initially at time of admission and currently the patient is off vasopressors. 4 History of hyperlipidemia. 5 History of hypertension. 6 History of hypothyroidism. 7 Possible history of underlying COPD. the patient is currently on a combination of Spiriva and Symbicort 8 History of diabetes mellitus. 9 History of ongoing tobacco use with nicotine addiction. 10 History of depression and schizophrenia. 11 transaminitis, could be related to COVID. Underlying cholecystitis is felt to be less likely, LFTs are improving. Pro-calcitonin level is elevated and this needs to be monitored. Plan Keep the patient 100% nonrebreather facemask IV fluids at 75 mL an hour normal saline. Aspiration precautions Continue the IV Decadron 6 mg every 24 hours Monitor liver function tests him on levels are improving Continue IV Zosyn as an empiric antibiotic coverage Repeat inflammatory markers for tomorrow, check d-dimer tomorrow, these were ordered and results are still pending. Meanwhile the patient has significantly decompensated. There is obvious worsening of the chest x-ray findings. . She is doing very poorly for now. DNR/DNI CODE STATUS
[2021-02-19] MEDS: methylPREDNISolone SOD SUCCI 125 MG/2 ML VIAL IV SCH ×2 (16:18→21:54)
[2021-02-19 16:27] LABS: African American GFR (CKD) >90 (>60 ml/min/1.73 sqM); Anion Gap 8 mmol/L; Blood Urea Nitrogen 13 mg/dL (7-17); Calcium 8.5 mg/dL (8.4-10.2); Carbon Dioxide 27 mmol/L (22-30); Chloride 111 mmol/L (98-107); Glucose 192 mg/dL (74-99); LDH 1154 U/L (313-618); Non-African American GFR(CKD) 87 (>60 ml/min/1.73 sqM); Potassium 3.2 mmol/L (3.5-5.1); Sodium 146 mmol/L (137-145)
[2021-02-19 16:42] LABS: C Reactive Protein 165.3 mg/L (<10.0)
[2021-02-19] MEDS ORDERED: Potassium Replacement Protocol 1 EACH MISC MISCELLANE PRN (17:18)
[2021-02-19 17:28] LABS: Glucose,Whole Blood 189 mg/dL (75-99)
[2021-02-19] MEDS: POTASSIUM CHLORIDE ER 20 MEQ TAB.ER PO SCH ×2 (17:50→18:16)
--- NOTE | 2021-02-19 17:55 | XR ---
EXAMINATION TYPE: XR chest 1V portable DATE OF EXAM: 02/19/2021 COMPARISON: 02/17/2021 HISTORY: Shortness of breath TECHNIQUE: Single frontal view of the chest is obtained. FINDINGS: Diffuse bilateral areas of infiltrate and pleural effusion are stable. Heart is enlarged. No pneumothorax. Diffuse osteopenia. Atherosclerotic change aorta. IMPRESSION: 1. Diffuse pleural-parenchymal changes are stable correlate for diffuse pneumonitis with bilateral pl eural effusions.
[2021-02-19 20:25] LABS: Glucose,Whole Blood 177 mg/dL (75-99)
[2021-02-20] MEDS: PIPERACILLIN-TAZOBACTAM 3.375 GM in SODIUM CHLORIDE 0.9% 100 ML IVPB SCH ×3 (00:41→16:19)
[2021-02-20] MEDS: SODIUM CHLORIDE 0.9% 1,000 ML IV SCH ×2 (00:44→11:25)
--- NOTE | 2021-02-20 01:16 | PN ---
PROGRESS NOTE DATE OF SERVICE: 02/19/2021. REASON FOR FOLLOWUP: Pneumonia and a question of cholecystitis. INTERVAL HISTORY: The patient did spike a fever of 100.8 this evening. The patient is hemodynamically stable, not on pressor support. However, she is requiring non-rebreather to saturations. No vomiting or diarrhea has been reported. PHYSICAL EXAMINATION: Blood pressure 127/80 with a pulse of 88. Temperature 100.1. She is 96% on nonrebreather. General description is an elderly female lying in bed in no distress. Respiratory system: Unlabored breathing, coarse breath sounds bilaterally. No wheeze. Heart S1, S2. Regular rate and rhythm. ABDOMEN: Soft, tenderness right upper quadrant area. LAB: BUN of 13, creatinine 0.63. D-dimer 3.83. LDH is elevated as well as CRP. DIAGNOSTIC IMPRESSION AND PLAN: Patient with fever, source is multifactorial in this patient likely COVID-19 pneumonia plus-minus aspiration and question of cholecystitis. Patient is covered with Zosyn to continue along with Solu-Medrol and zinc, Lovenox and respiratory support. Prognosis remains to be guarded. MMODL / IJN: [id number] /
[2021-02-20] MEDS: methylPREDNISolone SOD SUCCI 125 MG/2 ML VIAL IV SCH ×4 (03:26→21:19)
[2021-02-20 07:03] LABS: Glucose,Whole Blood 169 mg/dL (75-99)
[2021-02-20 08:32] LABS: Anisocytosis Slight; Basophils % (A) 0 %; Eosinophils % (A) 0 %; HGB 8.8 gm/dL (11.4-16.0); Hypochromasia Slight; Lymphocytes # (A) 0.5 k/uL (1.0-4.8); Lymphocytes % (A) 11 %; MCH 28.5 pg (25.0-35.0); MCHC 31.5 g/dL (31.0-37.0); MCV 90.4 fL (80.0-100.0); Mean Platelet Volume 7.5; Monocytes # (A) 0.2 k/uL (0-1.0); Monocytes % (A) 4 %; Neutrophils # (A) 3.6 k/uL (1.3-7.7); Neutrophils % (A) 84 %; Platelet Count 374 k/uL (150-450); RDW 16.2 % (11.5-15.5); WBC 4.3 k/uL (3.8-10.6)
[2021-02-20 08:36] LABS: ALT 155 U/L (4-34); AST 54 U/L (14-36); African American GFR (CKD) >90 (>60 ml/min/1.73 sqM); Albumin 2.5 g/dL (3.5-5.0); Albumin/Globulin Ratio 0.8; Alkaline Phosphatase 55 U/L (38-126); Anion Gap 5 mmol/L; Blood Urea Nitrogen 13 mg/dL (7-17); Calcium 8.7 mg/dL (8.4-10.2); Carbon Dioxide 31 mmol/L (22-30); Chloride 114 mmol/L (98-107); Globulin 3.1 g/dL; Glucose 151 mg/dL (74-99); Non-African American GFR(CKD) 86 (>60 ml/min/1.73 sqM); Potassium 3.7 mmol/L (3.5-5.1); Sodium 150 mmol/L (137-145); Total Bilirubin 0.3 mg/dL (0.2-1.3); Total Protein 5.6 g/dL (6.3-8.2)
[2021-02-20] MEDS: GABAPENTIN 300 MG CAP PO SCH ×3 (09:07→21:20)
[2021-02-20] MEDS: metFORMIN 500 MG TAB PO SCH ×2 (09:07→21:20)
[2021-02-20] MEDS: ASCORBIC ACID 500 MG TAB PO SCH (09:07)
[2021-02-20] MEDS: CLOPIDOGREL 75 MG TAB PO SCH (09:07)
[2021-02-20] MEDS: ENOXAPARIN 40 MG/0.4 ML SYRINGE SQ SCH (09:08)
[2021-02-20] MEDS: BACLOFEN 10 MG TAB PO SCH ×2 (09:08→21:20)
[2021-02-20] MEDS: amLODIPine 5 MG TAB PO SCH (09:08)
[2021-02-20] MEDS: LEVOTHYROXINE 50 MCG TAB PO SCH (09:08)
[2021-02-20] MEDS: DOCUSATE 100 MG CAP PO SCH ×2 (09:08→21:19)
[2021-02-20] MEDS: INSULIN ASPART (NovoLOG) 100 UNIT/ML VIAL SQ SCH ×4 (09:09→21:21)
[2021-02-20] MEDS: ZINC SULFATE 220 MG CAP PO SCH (09:09)
[2021-02-20] MEDS: PANTOPRAZOLE 40 MG/10 ML VIAL IV SCH (09:09)
[2021-02-20] MEDS: guaiFENesin SYRUP 100MG/5ML 200 MG/10 ML CUP PO SCH ×2 (09:10→21:19)
[2021-02-20] MEDS: polyethylene glycoL 3350 17 GM POWD.PACK PO SCH (09:10)
[2021-02-20] MEDS: buPROPion SR 150 MG TABLET.ER PO SCH ×2 (09:11→21:48)
[2021-02-20] MEDS: risperiDONE 0.5 MG TAB PO SCH ×2 (09:11→21:48)
[2021-02-20] MEDS: FLUTICASONE 50MCG/SPRAY NASAL 16GM EA NOSTRIL SCH (09:12)
[2021-02-20] MEDS: CHOLECALCIFEROL 10 MCG (400 IU) TABLET PO SCH ×2 (09:15→09:16)
[2021-02-20] MEDS: SYMBICORT 80-4.5 MCG INHALER INHALATION SCH ×2 (09:20→19:21)
[2021-02-20] MEDS: ALBUTEROL HFA INHALER INHALATION SCH ×4 (09:20→19:20)
[2021-02-20] MEDS: TIOTROPIUM 2.5 MCG INHALER INHALATION SCH (09:24)
[2021-02-20 12:10] LABS: Glucose,Whole Blood 202 mg/dL (75-99)
--- NOTE | 2021-02-20 15:15 | P.PN ---
Subjective Progress Note Date: 02/20/21 \ 75-year-old female patient who presented to the ED because of altered mentation and diminished level of consciousness. The patient resides in a [facility]. She was hypoxic and she was also febrile and she appeared to have had aspirated some emesis. The patient got admitted to the intensive care unit. She was placed on 100% nonrebreather facemask and subsequently she tested positive for coronary artery/Covid 19. She was hypotensive and she was supported with pressors and she was placed on norepinephrine infusion. An underlying cause status is DNR/DNI. No much history could be obtained from this patient. The patient apparently has had history of COPD, diabetes mellitus, hypertension and hypothyroidism as well as schizophrenia/depression and she has history of chronic smoking. Her white cell count at time of admission was 7.1 with a sodium level of 128. She had a normal renal function. The chest X-ray showed bilateral infiltrates right more than left consistent with underlying Covid 19 related pneumonia. subsequently, the patient was transitioned to oxygen at 10 L per minute nasal cannula and her oxygen flow was ranging between 8 and 10 L. She continued to have episodes of fever. Her LFTs were abnormal and ultrasound the liver showed some hepatomegaly and there was some also thickening of the gallbladder wall. The patienthad some rise in the LFTs including AST and ALP. Nevertheless the bilirubin was within normal limits. The patient's LDH level was 670 from . with a CRP of 70.9. The patient was placed on Decadron 6 mg IV every 24 hours. The patient was placed on Lovenox 40 mg subcu every 24 hours. She was also placed on empiric antibiotic coverage with IV Zosyn 3.375 g every 8 hours. IV fluids are running at 100cc/hr of normal saline. On today's evaluation of 02/18/2021, the patient is being seen for a follow-up. Her mentation is not absolutely appropriate. She continues to be lethargic and diminished level of consciousness. No agitation. She is able to respond and answer some from simple commands. She is on a Ventimask with 15 L of oxygen by nasal cannula. The current pulse ox is around 94%. She is hemodynamically stable. She is known to have COPD, hypertension, diabetes mellitus, and hypothyroidism. She also has history of schizophrenia/depression. Monitor blood work, her LDH is CRP has not been checked or they are pending today for now. Meanwhile, the rest of the blood work shows no major abnormalities. Serum bicarb is 19. BNP is at 60 with a creatinine of 0.7. D-dimer from several days ago was 3.7 and this needs to be rechecked. There were discussed and 0.5 with a hemoglobin of 9.2. The patient is currently on 0.9 at KVO. She is also covered empirically with IV Zosyn. Pro-calcitonin was at 3.13 from 02/17/2021 the LFTs are showing improvement. The AST is down to 116, ALT is down to 271 and a love irubin is on 0.2. The cultures are negative including blood cultures 2. 02/19/2021, the patient is doing poorly. After being on a Ventimask , the patient was briefly tried on high flow oxygen at 15 L and the patient failed and significant the patient had 3 based on the percent nonrebreather facemask. I saw the patient. She has crackles throughout the lungs bilaterally. She was quite short of breath. She was congested. She was unable to speak in full sentences. Her pulse ox was in the low 90s. At that point, I ordered a chest x-ray which with interval worsening and the patient has developed diffuse breath and pulmonary infiltrates and complaining the x-rays, there is obvious worsening in the diffuse bilateral pulmonary infiltration. The patient remains on IV Zosyn as a broad-spectrum antibiotic coverage. Labs from today are still pending for now. She is unfortunately doing poorly. She has a DNR/DNI CODE STATUS. She has history of schizophrenia. There is some use of accessory muscles of breathing also. She also is altered. She is lethargic. She is weak. She is at a higher risk of aspiration. 02/20/2021, the patient remains on 100percent nonrebreather facemask. Her condition probably is unchanged compared to yesterday. She is following some simple commands. She was aware of her location this morning. She is lethargic however. At times she gets agitated and confused and she starts pulling on her mask and her IV lines. There is a sitter at the bedside. She is a DNR/DNI CODE STATUS. Oral intake is minimal and very limited at this point in time as me ntioned earlier. I noticed that her urine output has dropped and the patient also became hypernatremic. The sodium level is up to 150 and the chloride is 114 with a serum bicarb of 31. Glucose at 202. LFTs are showing some mild transaminitis which is improving. Serum protein is at 5.6 with an albumin level of 2.5. LDH level was 1154 and the CRP is at 165. The d-dimer from yesterday was at 3.83. The chest x-ray showing diffuse pleural parenchymal disease Objective - Vital Signs Vital signs: Vital Signs Temp 98.7 F 02/20/21 02:00 Pulse 77 02/20/21 02:00 Resp 17 02/20/21 02:00 BP 116/68 02/20/21 02:00 Pulse Ox 92 L 02/20/21 02:00 Intake & Output 02/19/21 02/20/21 02/20/21 18:59 06:59 18:59 Output Total 300 Balance -300 Output: Urine 300 Other: Voiding Method External Catheter External Catheter Incontinent # Voids 1 # Bowel Movements 1 - Exam GENERAL EXAM: Alert, frail 75-year-old female patient, on 100% nonrebreather facemask., comfortable in no apparent distress. Patient is in [id number] degree of of respiratory distress. She is a mouth breather. He is quite lethargic as she has not been responding activity. She does follow some simple commands however. I felt that the patient is obviously worse compared to yesterday and she is having more difficulty breathing. She was unable to tolerate coming off the 100% nonrebreather., The crackles and diffuse throughout the lung his bilaterally heard anteriorly and posteriorly. HEAD: Normocephalic. EYES: Normal reaction of pupils, equal size. NOSE: Clear with pink turbinates. THROAT: No erythema or exudates. NECK: No masses, no JVD. CHEST: No chest wall deformity. LUNGS: Equal air entry with scattered rhonchi, crackles in the posterior bases right greater than left CVS: S1 and S2 normal with no audible murmur, regular rhythm. ABDOMEN: No hepatosplenomegaly, normal bowel sounds, no guarding or rigidity. SPINE: No scoliosis or deformity SKIN: No rashes CENTRAL NERVOUS SYSTEM: No focal deficits, tone is normal in all 4 extremities. The patient is very much lethargic and somnolent at times confused. EXTREMITIES: There is no peripheral edema. No clubbing, no cyanosis. Peripheral pulses are intact. - Labs CBC & Chem 7: 02/20/21 07:34 02/20/21 07:34 Labs: Abnormal Lab Results - Last 24 Hours (Table) 02/19/21 02/19/21 02/19/21 Range/Units 15:46 15:46 17:24 RBC (3.80-5.40) m/uL Hgb (11.4-16.0) gm/dL Hct (34.0-46.0) % RDW (11.5-15.5) % Lymphocytes # (1.0-4.8) k/uL D-Dimer 3.83 H (<0.60) mg/L FEU Sodium 146 H (137-145) mmol/L Potassium 3.2 L (3.5-5.1) mmol/L Chloride 111 H (98-107) mmol/L Carbon Dioxide (22-30) mmol/L Glucose 192 H (74-99) mg/dL POC Glucose (mg/dL) 189 H (75-99) mg/dL AST (14-36) U/L ALT (4-34) U/L Lactate Dehydrogenase 1154 H (313-618) U/L C-Reactive Protein 165.3 H (<10.0) mg/L Total Protein (6.3-8.2) g/dL Albumin (3.5-5.0) g/dL 02/19/21 02/20/21 02/20/21 Range/Units 20:22 07:00 07:34 RBC 3.10 L (3.80-5.40) m/uL Hgb 8.8 L (11.4-16.0) gm/dL Hct 28.0 L (34.0-46.0) % RDW 16.2 H (11.5-15.5) % Lymphocytes # 0.5 L (1.0-4.8) k/uL D-Dimer (<0.60) mg/L FEU Sodium (137-145) mmol/L Potassium (3.5-5.1) mmol/L Chloride (98-107) mmol/L Carbon Dioxide (22-30) mmol/L Glucose (74-99) mg/dL POC Glucose (mg/dL) 177 H 169 H (75-99) mg/dL AST (14-36) U/L ALT (4-34) U/L Lactate Dehydrogenase (313-618) U/L C-Reactive Protein (<10.0) mg/L Total Protein (6.3-8.2) g/dL Albumin (3.5-5.0) g/dL 02/20/21 02/20/21 Range/Units 07:34 12:01 RBC (3.80-5.40) m/uL Hgb (11.4-16.0) gm/dL Hct (34.0-46.0) % RDW (11.5-15.5) % Lymphocytes # (1.0-4.8) k/uL D-Dimer (<0.60) mg/L FEU Sodium 150 H (137-145) mmol/L Potassium (3.5-5.1) mmol/L Chloride 114 H (98-107) mmol/L Carbon Dioxide 31 H (22-30) mmol/L Glucose 151 H (74-99) mg/dL POC Glucose (mg/dL) 202 H (75-99) mg/dL AST 54 H (14-36) U/L ALT 155 H (4-34) U/L Lactate Dehydrogenase (313-618) U/L C-Reactive Protein (<10.0) mg/L Total Protein 5.6 L (6.3-8.2) g/dL Albumin 2.5 L (3.5-5.0) g/dL Microbiology - Last 24 Hours (Table) 02/14/21 08:16 Blood Culture - Final Blood No Growth after 144 hours 02/14/21 08:00 Blood Culture - Final Blood No Growth after 144 hours 02/18/21 19:00 Blood Culture - Preliminary Blood No Growth after 24 hours Assessment and Plan Plan: 1 Acute mental status changes, likely due to covid 19 infection metabolic encephalopathy. Mental status is improving and the patient was able to follow commands and answer simple questions without any major difficulties. No major changes in her condition since yesterday and the patient has a DNR/DNI CODE STATUS. The patient's condition decompensated. She is more lethargic and she is hesitant to worsening respiratory status and respiratory failure. No major change since yesterday. She remains in the 100% nonrebreather facemask to maintain a saturation above 90%. Multiple status is still fluctuating. The patient also developed a hyperchloremic hypernatremia and she is quite dry and he'll need some IV fluids. Oral intake is quite 2 Acute hypoxic respiratory failure secondary to acute CoVID 19 pneumonia, currently 100% nonrebreather facemask, chest x-ray showing diffuse breath and pulmonary infiltrates with obvious interval worsening. She is on IV Zosyn for any potential aspiration. I think there predominant presentation is progression of her underlying Covid 19 pneumonia. 3 Hypotension, which may relate to underlying sepsis. Recovered and off pressors And the patient required pressors initially at time of admission and currently the patient is off vasopressors. 4 History of hyperlipidemia. 5 History of hypertension. 6 History of hypothyroidism. 7 Possible history of underlying COPD. the patient is currently on a combination of Spiriva and Symbicort 8 History of diabetes mellitus. 9 History of ongoing tobacco use with nicotine addiction. 10 History of depression and schizophrenia. 11 transaminitis, could be related to COVID. Underlying cholecystitis is felt to be less likely, LFTs are improving. Pro-calcitonin level is elevated and this needs to be monitored. Plan Diet under strict precautions and monitoring by the nursing staff. Watch for any aspiration. Keep the patient 100% nonrebreather facemask IV fluids at 100 mL an hour of D5W Aspiration precautions Continue the IV Decadron 6 mg every 24 hours Monitor liver function tests him on levels are improving Continue IV Zosyn as an empiric antibiotic coverage She is doing very poorly for now. DNR/DNI CODE STATUS
[2021-02-20] MEDS: DEXTROSE 5% IN WATER 1,000 ML IV SCH (15:22)
[2021-02-20 17:07] LABS: Glucose,Whole Blood 176 mg/dL (75-99)
--- NOTE | 2021-02-20 18:56 | PN ---
PROGRESS NOTE DATE OF SERVICE: 02/20/2021 REASON FOR FOLLOWUP: Pneumonia and cholecystitis. INTERVAL HISTORY: The patient is currently afebrile. The patient remains hypoxic, requiring non- rebreather. The patient tries to communicate, but it is hard to understand her questions. No vomiting, diarrhea or any other changes reported by the nursing staff. PHYSICAL EXAMINATION: Her blood pressure is 123/68 with a pulse of 80, temperature 97.6. General description is an elderly female lying in bed in no distress. RESPIRATORY SYSTEM: Unlabored breathing. Coarse breath sounds bilaterally. No wheeze. HEART: S1, S2. Regular rate and rhythm. ABDOMEN: Soft. Mildly tender in the right upper quadrant area. LABS: Hemoglobin 8.3, white count 4.3, BUN of 13, creatinine 0.67. Blood culture has been negative. DIAGNOSTIC IMPRESSION AND PLAN: Patient with pneumonia, likely a combination of COVID-19 plus/minus aspiration pneumonia. Patient seems to have shown overall worsening of her clinical condition, currently being treated with empiric Zosyn in addition to the Lovenox, Solu-Medrol, zinc; to continue and monitor her clinical course closely. Overall prognosis remains guarded. MMODL / IJN: [id number] /
[2021-02-20 20:06] LABS: Glucose,Whole Blood 217 mg/dL (75-99)
[2021-02-21] MEDS: PIPERACILLIN-TAZOBACTAM 3.375 GM in SODIUM CHLORIDE 0.9% 100 ML IVPB SCH ×4 (06:12→23:00)
[2021-02-21] MEDS: DEXTROSE 5% IN WATER 1,000 ML IV SCH ×3 (06:13→20:18)
[2021-02-21] MEDS: methylPREDNISolone SOD SUCCI 125 MG/2 ML VIAL IV SCH ×4 (06:15→20:17)
[2021-02-21 06:58] LABS: Glucose,Whole Blood 191 mg/dL (75-99)
[2021-02-21] MEDS: GABAPENTIN 300 MG CAP PO SCH ×3 (08:04→19:44)
[2021-02-21] MEDS: LEVOTHYROXINE 50 MCG TAB PO SCH (08:04)
[2021-02-21] MEDS: amLODIPine 5 MG TAB PO SCH (08:04)
[2021-02-21] MEDS: guaiFENesin SYRUP 100MG/5ML 200 MG/10 ML CUP PO SCH ×2 (08:04→19:43)
[2021-02-21] MEDS: BACLOFEN 10 MG TAB PO SCH ×2 (08:04→19:44)
[2021-02-21] MEDS: metFORMIN 500 MG TAB PO SCH ×2 (08:05→19:43)
[2021-02-21] MEDS: ZINC SULFATE 220 MG CAP PO SCH (08:05)
[2021-02-21] MEDS: ENOXAPARIN 40 MG/0.4 ML SYRINGE SQ SCH (08:05)
[2021-02-21] MEDS: ASCORBIC ACID 500 MG TAB PO SCH (08:05)
[2021-02-21] MEDS: CLOPIDOGREL 75 MG TAB PO SCH (08:05)
[2021-02-21] MEDS: INSULIN ASPART (NovoLOG) 100 UNIT/ML VIAL SQ SCH ×4 (08:05→20:18)
[2021-02-21] MEDS: PANTOPRAZOLE 40 MG/10 ML VIAL IV SCH (08:05)
[2021-02-21] MEDS: polyethylene glycoL 3350 17 GM POWD.PACK PO SCH (08:06)
[2021-02-21] MEDS: risperiDONE 0.5 MG TAB PO SCH ×2 (08:07→19:44)
[2021-02-21] MEDS: buPROPion SR 150 MG TABLET.ER PO SCH ×2 (08:07→19:44)
[2021-02-21] MEDS: FLUTICASONE 50MCG/SPRAY NASAL 16GM EA NOSTRIL SCH (08:07)
[2021-02-21] MEDS: DOCUSATE 100 MG CAP PO SCH ×2 (08:08→19:44)
[2021-02-21] MEDS: CHOLECALCIFEROL 10 MCG (400 IU) TABLET PO SCH (08:14)
[2021-02-21] MEDS: SYMBICORT 80-4.5 MCG INHALER INHALATION SCH ×2 (08:51→20:08)
[2021-02-21] MEDS: ALBUTEROL HFA INHALER INHALATION SCH ×4 (08:51→20:08)
[2021-02-21] MEDS: TIOTROPIUM 2.5 MCG INHALER INHALATION SCH (08:51)
[2021-02-21 09:25] LABS: Basophils # (A) 0.01 X 10*3/uL (0.00-0.10); Basophils % (A) 0.1 %; Eosinophils # (A) 0 X 10*3/uL (0.04-0.35); Eosinophils % (A) 0 %; HCT 27.7 % (37.2-46.3); HGB 8.3 g/dL (12.0-15.0); Lymphocytes # (A) 0.74 X 10*3/uL (0.90-5.00); Lymphocytes % (A) 8.9 %; MCH 27.9 pg (27.0-32.0); Mean Platelet Volume 9.9 fL (9.5-12.2); Monocytes % (A) 4.8 %; Neutrophils # (A) 6.99 X 10*3/uL (1.80-7.70); Neutrophils % (A) 84.3 %; Platelet Count 381 X 10*3/uL (140-440); RBC 2.98 X 10*6/uL (4.10-5.20)
--- NOTE | 2021-02-21 09:49 | P.PN ---
Subjective Progress Note Date: 02/20/21 Sofía Leslie, is a 75-year-old female patient of Dr. Jacob who presented to [facility] emergency room with a chief complaint of being and responsive, patient was last seen at the nursing facility where she leaves at 3 AM, she was found in the morning and responsive EMS were called pulse ox was in the 80s, and temperature was 103 she was evaluated in the emergency room vital examination on arrival to emergency room reveals a temperature of 101.2 pulse 124 respiration 28 blood pressure 129/74 pulse ox 95% on nonrebreather mask at 15 L her white blood count was 7.1 hemoglobin 10.2 platelet count 338 sodium 128 glucose 187 AST and ALT normal BUN 15 creatinine 0.79 coronavirus PCR was positive. EKG was done in the emergency room and revealed sinus tachycardia with left anterior fascicular block and possible old septal infarct as evidenced by poor R-wave progression in the anterior leads. Chest x-ray revealed mild cardiomegaly with small bilateral pleural effusions, right upper lung and bybasilar acute infiltrates. Patient was admitted to intensive care unit pulmonary consultation was requested. Patient is unable to provide any information for review of system and past med ical history. From review of her chart, she has a past medical history of hypertension with hypertensive heart disease, history of hyperlipidemia, history of hypothyroidism, history of pulmonary hypertension, history of COPD, and history of diabetes Mellitus. On 02/15/2021 patient was seen and examined in the ICU she is alert slightly confused in no apparent distress she is complaining of nose congestion she stated that her shortness of breath is better she is still having occasional cough she is complaining of tenderness in the right heel area site of a small open ulcer, otherwise she denies any complaints there is no fever or chills no headache or dizziness no chest pain no nausea or vomiting no abdominal pain no diarrhea no blood in the stools and no urinary symptoms. On 02/16/2021 patient was seen and examined in the ICU she is alert and oriented 3 in no apparent distress she is complaining of abdominal discomfort mostly in the epigastric area she is still complaining of cough and shortness of breath otherwise she denies any complaints there is no fever or chills no headache or dizziness no chest pain no nausea or vomiting no diarrhea no blood in the stools no burning with urination no frequency or urgency and no hematuria. Liver enzymes are significantly elevated today. On 02/17/2021 patient was seen and examined on the medical floor she is alert and oriented in no apparent distress, she is still complaining of cough, shortness of breath, and abdominal discomfort otherwise she denies any complaints there is no fever or chills no headache or dizziness no chest pain no nausea or vomiting, no diarrhea no blood in the stools no burning with urination no frequency or urgency and no hematuria. On 02/18/2021 patient was seen and examined on the medical floor she is alert slightly confused in no apparent distress, she was having episodes of severe elevation in her temperature up to 104.1 today her blood pressure is 98/61 pulse ox 94% on 15 L nasal cannula pulmonary critical care notified and evaluated the patient, at this time I will repeat the blood culture and sputum culture I will notify infectious disease to reevaluate patient in regard to significant mara vation in her temperature today otherwise patient is also complaining of shortness of breath she denies any other complaints at this time there is no headache or dizziness no chest pain no nausea or vomiting no abdominal pain no diarrhea no blood in the stools no burning with urination no frequency or urgency no hematuria On 02/19/2021 patient was seen and examined on the medical floor she is alert and oriented in no apparent distress her fever has somewhat subsided this morning temperature is 98.6 and 100.7 it was significantly more elevated yesterday her pulse is 75 respiration 18 blood pressure 117/73 pulse ox 92% on 15 L nonrebreather mask she is complaining of cough and shortness of breath otherwise she denies any complaints there is no headache or dizziness no chest pain no nausea or vomiting no abdominal pain no diarrhea no blood in the stools no burning with urination no frequency or urgency and no hematuria pulmonary critical care, surgery, and infectious disease are following closely On 02/20/2021 patient was seen and examined on the medical floor she is alert and oriented in no apparent she is complaining of cough and shortness of breath, her pulse ox 92% on 15 L nonrebreather mask she is complaining of cough and shortness of breath otherwise she denies any complaints there is no headache or dizziness no chest pain no nausea or vomiting no abdominal pain no diarrhea no blood in the stools no burning with urination no frequency or urgency and no hematuria pulmonary critical care, surgery, and infectious disease are following closely Objective - Vital Signs Vital signs: Vital Signs Temp 98.7 F 02/20/21 02:00 Pulse 77 02/20/21 02:00 Resp 17 02/20/21 02:00 BP 116/68 02/20/21 02:00 Pulse Ox 92 L 02/20/21 02:00 Intake & Output 02/19/21 02/20/21 02/20/21 18:59 06:59 18:59 Output Total 300 Balance -300 Output: Urine 300 Other: Voiding Method External Catheter External Catheter Incontinent # Voids 1 # Bowel Movements 1 - Exam In general patient is alert responsive in no apparent distress, currently she is maintained on oxygen 10 L high flow HEENT head normocephalic and atraumatic Neck is supple no JVD no goiter no lymphadenopathy Chest exam reveals coarse crackles in both lung conley with wheezing Cardiac exam reveals regular heart sounds S1 and S2 no gallops no murmurs Abdomen is soft nontender no organomegaly with normal bowel sounds Extremity exam reveals no edema no cyanosis or clubbing, there is a small ulcer on the lateral side of the right heel area with tenderness Neurological examination is limited but does not show any gross focal deficit - Labs CBC & Chem 7: 02/21/21 07:02 02/20/21 07:34 Labs: Abnormal Lab Results - Last 24 Hours (Table) 02/19/21 02/19/21 02/19/21 Range/Units 12:09 15:46 15:46 RBC (3.80-5.40) m/uL Hgb (11.4-16.0) gm/dL Hct (34.0-46.0) % RDW (11.5-15.5) % Lymphocytes # (1.0-4.8) k/uL D-Dimer 3.83 H (<0.60) mg/L FEU Sodium 146 H (137-145) mmol/L Potassium 3.2 L (3.5-5.1) mmol/L Chloride 111 H (98-107) mmol/L Carbon Dioxide (22-30) mmol/L Glucose 192 H (74-99) mg/dL POC Glucose (mg/dL) 136 H (75-99) mg/dL AST (14-36) U/L ALT (4-34) U/L Lactate Dehydrogenase 1154 H (313-618) U/L C-Reactive Protein 165.3 H (<10.0) mg/L Total Protein (6.3-8.2) g/dL Albumin (3.5-5.0) g/dL 02/19/21 02/19/21 02/20/21 Range/Units 17:24 20:22 07:00 RBC (3.80-5.40) m/uL Hgb (11.4-16.0) gm/dL Hct (34.0-46.0) % RDW (11.5-15.5) % Lymphocytes # (1.0-4.8) k/uL D-Dimer (<0.60) mg/L FEU Sodium (137-145) mmol/L Potassium (3.5-5.1) mmol/L Chloride (98-107) mmol/L Carbon Dioxide (22-30) mmol/L Glucose (74-99) mg/dL POC Glucose (mg/dL) 189 H 177 H 169 H (75-99) mg/dL AST (14-36) U/L ALT (4-34) U/L Lactate Dehydrogenase (313-618) U/L C-Reactive Protein (<10.0) mg/L Total Protein (6.3-8.2) g/dL Albumin (3.5-5.0) g/dL 02/20/21 02/20/21 Range/Units 07:34 07:34 RBC 3.10 L (3.80-5.40) m/uL Hgb 8.8 L (11.4-16.0) gm/dL Hct 28.0 L (34.0-46.0) % RDW 16.2 H (11.5-15.5) % Lymphocytes # 0.5 L (1.0-4.8) k/uL D-Dimer (<0.60) mg/L FEU Sodium 150 H (137-145) mmol/L Potassium (3.5-5.1) mmol/L Chloride 114 H (98-107) mmol/L Carbon Dioxide 31 H (22-30) mmol/L Glucose 151 H (74-99) mg/dL POC Glucose (mg/dL) (75-99) mg/dL AST 54 H (14-36) U/L ALT 155 H (4-34) U/L Lactate Dehydrogenase (313-618) U/L C-Reactive Protein (<10.0) mg/L Total Protein 5.6 L (6.3-8.2) g/dL Albumin 2.5 L (3.5-5.0) g/dL Microbiology - Last 24 Hours (Table) 02/14/21 08:16 Blood Culture - Final Blood No Growth after 144 hours 02/14/21 08:00 Blood Culture - Final Blood No Growth after 144 hours 02/18/21 19:00 Blood Culture - Preliminary Blood No Growth after 24 hours Assessment and Plan Plan: Acute Covid 19 infection with evidence of multifocal pneumonia Acute hypoxic respiratory failure Underlying history of hypertension Underlying history of hyperlipidemia Underlying history of hypothyroidism Underlying history of pulmonary hypertension Underlying history of hypertensive heart disease Underlying history of schizophrenia, major depression, and paranoid personality disorder per chart Small ulcer on the lateral side of the right heel area with tenderness Will consult vascular surgery for possible debridement Elevated liver enzymes will stop Lipitor at this time will check liver ultrasound and monitor closely, ultrasound revealing evidence of acute cholecystitis, patient maintained on IV Zosyn, surgical consultation requested Patient is admitted to intensive care unit She was started on IV dexamethasone and subcu Lovenox She was started on norepinephrine drip She was given a dose of IV Rocephin 2 g in the emergency room Pulmonary critical care consultation and infectious disease requested requested Patient is unable to provide any information, all past medical history is derived from review of her chart
[2021-02-21 11:47] LABS: Glucose,Whole Blood 197 mg/dL (75-99)
--- NOTE | 2021-02-21 13:50 | P.PN ---
Subjective Progress Note Date: 02/21/21 Sofía Leslie, is a 75-year-old female patient of Dr. Jacob who presented to [facility] emergency room with a chief complaint of being and responsive, patient was last seen at the nursing facility where she leaves at 3 AM, she was found in the morning and responsive EMS were called pulse ox was in the 80s, and temperature was 103 she was evaluated in the emergency room vital examination on arrival to emergency room reveals a temperature of 101.2 pulse 124 respiration 28 blood pressure 129/74 pulse ox 95% on nonrebreather mask at 15 L her white blood count was 7.1 hemoglobin 10.2 platelet count 338 sodium 128 glucose 187 AST and ALT normal BUN 15 creatinine 0.79 coronavirus PCR was positive. EKG was done in the emergency room and revealed sinus tachycardia with left anterior fascicular block and possible old septal infarct as evidenced by poor R-wave progression in the anterior leads. Chest x-ray revealed mild cardiomegaly with small bilateral pleural effusions, right upper lung and bybasilar acute infiltrates. Patient was admitted to intensive care unit pulmonary consultation was requested. Patient is unable to provide any information for review of system and past med ical history. From review of her chart, she has a past medical history of hypertension with hypertensive heart disease, history of hyperlipidemia, history of hypothyroidism, history of pulmonary hypertension, history of COPD, and history of diabetes Mellitus. On 02/15/2021 patient was seen and examined in the ICU she is alert slightly confused in no apparent distress she is complaining of nose congestion she stated that her shortness of breath is better she is still having occasional cough she is complaining of tenderness in the right heel area site of a small open ulcer, otherwise she denies any complaints there is no fever or chills no headache or dizziness no chest pain no nausea or vomiting no abdominal pain no diarrhea no blood in the stools and no urinary symptoms. On 02/16/2021 patient was seen and examined in the ICU she is alert and oriented 3 in no apparent distress she is complaining of abdominal discomfort mostly in the epigastric area she is still complaining of cough and shortness of breath otherwise she denies any complaints there is no fever or chills no headache or dizziness no chest pain no nausea or vomiting no diarrhea no blood in the stools no burning with urination no frequency or urgency and no hematuria. Liver enzymes are significantly elevated today. On 02/17/2021 patient was seen and examined on the medical floor she is alert and oriented in no apparent distress, she is still complaining of cough, shortness of breath, and abdominal discomfort otherwise she denies any complaints there is no fever or chills no headache or dizziness no chest pain no nausea or vomiting, no diarrhea no blood in the stools no burning with urination no frequency or urgency and no hematuria. On 02/18/2021 patient was seen and examined on the medical floor she is alert slightly confused in no apparent distress, she was having episodes of severe elevation in her temperature up to 104.1 today her blood pressure is 98/61 pulse ox 94% on 15 L nasal cannula pulmonary critical care notified and evaluated the patient, at this time I will repeat the blood culture and sputum culture I will notify infectious disease to reevaluate patient in regard to significant mara vation in her temperature today otherwise patient is also complaining of shortness of breath she denies any other complaints at this time there is no headache or dizziness no chest pain no nausea or vomiting no abdominal pain no diarrhea no blood in the stools no burning with urination no frequency or urgency no hematuria On 02/19/2021 patient was seen and examined on the medical floor she is alert and oriented in no apparent distress her fever has somewhat subsided this morning temperature is 98.6 and 100.7 it was significantly more elevated yesterday her pulse is 75 respiration 18 blood pressure 117/73 pulse ox 92% on 15 L nonrebreather mask she is complaining of cough and shortness of breath otherwise she denies any complaints there is no headache or dizziness no chest pain no nausea or vomiting no abdominal pain no diarrhea no blood in the stools no burning with urination no frequency or urgency and no hematuria pulmonary critical care, surgery, and infectious disease are following closely On 02/20/2021 patient was seen and examined on the medical floor she is alert and oriented in no apparent she is complaining of cough and shortness of breath, her pulse ox 92% on 15 L nonrebreather mask she is complaining of cough and shortness of breath otherwise she denies any complaints there is no headache or dizziness no chest pain no nausea or vomiting no abdominal pain no diarrhea no blood in the stools no burning with urination no frequency or urgency and no hematuria pulmonary critical care, surgery, and infectious disease are following closely On 02/21/2021 patient was seen and examined on the medical floor she is alert and oriented 3 she is still complaining of shortness of breath with any activity and complaining of cough otherwise she denies any complaints there is no fever or chills no headache or dizziness no chest pain no palpitation no nausea or vomiting no abdominal pain no diarrhea no blood in the stools no burning with urination no frequency or urgency and no hematuria Objective - Vital Signs Vital signs: Vital Signs Temp 97.5 F L 02/20/21 22:17 Pulse 88 02/20/21 22:17 Resp 17 02/20/21 22:17 BP 135/73 02/20/21 22:17 Pulse Ox 87 L 02/20/21 22:17 Intake & Output 02/20/21 02/21/21 02/21/21 18:59 06:59 18:59 Intake Total 1540 Balance 1540 Weight 70.7 kg Intake: IV 240 Sodium Chloride 0.9% 1, 240 000 ml @ 100 mls/hr IV . Q10H [facility] Rx#:[id number] Intake, IV Titration 1300 Amount Dextrose 5% in Water 1, 1200 000 ml @ 100 mls/hr IV . Q10H [facility] Rx#:[id number] Piperacillin-Tazobactam 3 100 .375 gm In Sodium Chloride 0.9% 100 ml @ 25 mls/hr IVPB Q8HR [facility] Rx# :[id number] Other: Voiding Method Incontinent Incontinent Incontinent # Voids 2 # Bowel Movements 2 1 - Exam In general patient is alert responsive in no apparent distress, currently she is maintained on oxygen 10 L high flow HEENT head normocephalic and atraumatic Neck is supple no JVD no goiter no lymphadenopathy Chest exam reveals coarse crackles in both lung conley with wheezing Cardiac exam reveals regular heart sounds S1 and S2 no gallops no murmurs Abdomen is soft nontender no organomegaly with normal bowel sounds Extremity exam reveals no edema no cyanosis or clubbing, there is a small ulcer on the lateral side of the right heel area with tenderness Neurological examination is limited but does not show any gross focal deficit - Labs CBC & Chem 7: 02/21/21 07:02 02/20/21 07:34 Labs: Abnormal Lab Results - Last 24 Hours (Table) 02/20/21 02/20/21 02/20/21 Range/Units 12:01 17:04 20:02 RBC (4.10-5.20) X 10*6/uL Hgb (12.0-15.0) g/dL Hct (37.2-46.3) % MCHC (32.0-37.0) g/dL RDW (11.5-14.5) % Absolute Nucleated RBC (0.00-0.00) X 10*3/uL Immature Gran # (0.00-0.04) X 10*3/uL Lymphocytes # (0.90-5.00) X 10*3/uL Eosinophils # (0.04-0.35) X 10*3/uL NRBC/100 WBC Diff (0.0-0.0) /100 WBCS POC Glucose (mg/dL) 202 H 176 H 217 H (75-99) mg/dL 02/21/21 02/21/21 Range/Units 06:54 07:02 RBC 2.98 L (4.10-5.20) X 10*6/uL Hgb 8.3 L (12.0-15.0) g/dL Hct 27.7 L (37.2-46.3) % MCHC 30.0 L (32.0-37.0) g/dL RDW 17.0 H (11.5-14.5) % Absolute Nucleated RBC 0.08 H (0.00-0.00) X 10*3/uL Immature Gran # 0.16 H (0.00-0.04) X 10*3/uL Lymphocytes # 0.74 L (0.90-5.00) X 10*3/uL Eosinophils # 0 L (0.04-0.35) X 10*3/uL NRBC/100 WBC Diff 1.0 H (0.0-0.0) /100 WBCS POC Glucose (mg/dL) 191 H (75-99) mg/dL Microbiology - Last 24 Hours (Table) 02/18/21 19:00 Blood Culture - Preliminary Blood No Growth after 48 hours 02/14/21 08:16 Blood Culture - Final Blood No Growth after 144 hours 02/14/21 08:00 Blood Culture - Final Blood No Growth after 144 hours Assessment and Plan Plan: Acute Covid 19 infection with evidence of multifocal pneumonia Acute hypoxic respiratory failure Underlying history of hypertension Underlying history of hyperlipidemia Underlying history of hypothyroidism Underlying history of pulmonary hypertension Underlying history of hypertensive heart disease Underlying history of schizophrenia, major depression, and paranoid personality disorder per chart Small ulcer on the lateral side of the right heel area with tenderness Will consult vascular surgery for possible debridement Elevated liver enzymes will stop Lipitor at this time will check liver ultrasound and monitor closely, ultrasound revealing evidence of acute cholecystitis, patient maintained on IV Zosyn, surgical consultation requested Patient is admitted to intensive care unit She was started on IV dexamethasone and subcu Lovenox She was started on norepinephrine drip She was given a dose of IV Rocephin 2 g in the emergency room Pulmonary critical care consultation and infectious disease requested requested Patient is unable to provide any information, all past medical history is derived from review of her chart
--- NOTE | 2021-02-21 14:13 | P.PN ---
Subjective Progress Note Date: 02/21/21 Principal diagnosis: COVID 19 pneumonia, suspected aspiration, metabolic encephalopathy 75-year-old female patient who presented to the ED because of altered mentation and diminished level of consciousness. The patient resides in a senior living. She was hypoxic and she was also febrile and she appeared to have had aspirated some emesis. The patient got admitted to the intensive care unit. She was placed on 100% nonrebreather facemask and subsequently she tested positive for coronary artery/Covid 19. She was hypotensive and she was supported with pressors and she was placed on norepinephrine infusion. An underlying cause status is DNR/DNI. No much history could be obtained from this patient. The patient apparently has had history of COPD, diabetes mellitus, hypertension and hypothyroidism as well as schizophrenia/depression and she has history of chronic smoking. Her white cell count at time of admission was 7.1 with a sodium level of 128. She had a normal renal function. The chest X-ray showed bilateral infiltrates right more than left consistent with underlying Covid 19 related pneumonia. subsequently, the patient was transitioned to oxygen at 10 L per minute nasal cannula and her oxygen flow was ranging between 8 and 10 L. She continued to have episodes of fever. Her LFTs were abnormal and ultrasound the liver showed some hepatomegaly and there was some also thickening of the gallbladder wall. The patienthad some rise in the LFTs including AST and ALP. Nevertheless the bilirubin was within normal limits. The patient's LDH level was 670 from with a CRP of 70.9. The patient was placed on Decadron 6 mg IV every 24 hours. The patient was placed on Lovenox 40 mg subcu every 24 hours. She was also placed on empiric antibiotic coverage with IV Zosyn 3.375 g every 8 hours. IV fluids are running at 100cc/hr of normal saline. On today's evaluation of 02/18/2021, the patient is being seen for a follow-up. Her mentation is not absolutely appropriate. She continues to be lethargic and diminished level of consciousness. No agitation. She is able to respond and answer some from simple commands. She is on a Ventimask with 15 L of oxygen by nasal cannula. The current pulse ox is around 94%. She is hemodynamically stable. She is known to have COPD, hypertension, diabetes mellitus, and hypothyroidism. She also has history of schizophrenia/depression. Monitor blood work, her LDH is CRP has not been checked or they are pending today for now. Meanwhile, the rest of the blood work shows no major abnormalities. Serum bicarb is 19. BNP is at 60 with a creatinine of 0.7. D-dimer from several days ago was 3.7 and this needs to be rechecked. There were discussed and 0.5 with a hemoglobin of 9.2. The patient is currently on 0.9 at KVO. She is also covered empirically with IV Zosyn. Pro-calcitonin was at 3.13 from 02/17/2021 the LFTs are showing improvement. The AST is down to 116, ALT is down to 271 and a bilirubin is on 0.2. The cultures are negative including blood cultures 2. 02/19/2021, the patient is doing poorly. After being on a Ventimask , the patient was briefly tried on high flow oxygen at 15 L and the patient failed and significant the patient had 3 based on the percent nonrebreather facemask. I saw the patient. She has crackles throughout the lungs bilaterally. She was q uite short of breath. She was congested. She was unable to speak in full sentences. Her pulse ox was in the low 90s. At that point, I ordered a chest x-ray which with interval worsening and the patient has developed diffuse breath and pulmonary infiltrates and complaining the x-rays, there is obvious worsening in the diffuse bilateral pulmonary infiltration. The patient remains on IV Zosyn as a broad-spectrum antibiotic coverage. Labs from today are still pending for now. She is unfortunately doing poorly. She has a DNR/DNI CODE STATUS. She has history of schizophrenia. There is some use of accessory muscles of breathing also. She also is altered. She is lethargic. She is weak. She is at a higher risk of aspiration. 02/20/2021, the patient remains on 100percent nonrebreather facemask. Her condition probably is unchanged compared to yesterday. She is following some simple commands. She was aware of her location this morning. She is lethargic however. At times she gets agitated and confused and she starts pulling on her mask and her IV lines. There is a sitter at the bedside. She is a DNR/DNI CODE STATUS. Oral intake is minimal and very limited at this point in time as mentioned earlier. I noticed that her urine output has dropped and the patient also became hypernatremic. The sodium level is up to 150 and the chloride is 114 with a serum bicarb of 31. Glucose at 202. LFTs are showing some mild transaminitis which is improving. Serum protein is at 5.6 with an albumin level of 2.5. LDH level was 1154 and the CRP is at 165. The d-dimer from yesterday was at 3.83. The chest x-ray showing diffuse pleural parenchymal disease On 02/21/2021 patient seen in follow-up. Awake and alert, she seems to be a little bit more conversant on today's exam, denies any worsening dyspnea, she still requiring 100% nonrebreather mask which she frequently pulls off although does not appear to be in any acute distress when the oxygen is off, her pulse ox is 87-92 %. Seems to be breathing comfortably, she is afebrile, hemodynamically appears to be stable, less chest x-ray was done on 02/19/2021 showing diffuse pleural parenchymal changes there is stable. Her blood work has been reviewed, last set of inflammatory markers of LDH and CRP were still elevated on 02/19/2021, we haven't had a recheck in the last couple days, her pro-calcitonin level was elevated on 02/17/2021 at 3.13. patient is on Zosyn for empiric antibiotic coverage for possibility of aspiration, she remains on IV steroids currently at 60 mg every 6 hours of Solu-Medrol, she is on inhalers, and prophylactic Lovenox. She is on nectar thick liquids per speech therapy recommendations. She requires assistance and close supervision with meals. Objective - Vital Signs Vital signs: Vital Signs Temp 97.6 F 02/21/21 09:46 Pulse 85 02/21/21 09:46 Resp 20 02/21/21 09:46 BP 135/83 02/21/21 09:46 Pulse Ox 87 L 02/21/21 09:46 Intake & Output 02/20/21 02/21/21 02/21/21 18:59 06:59 18:59 Intake Total 1540 Balance 1540 Weight 70.7 kg Intake: IV 240 Sodium Chloride 0.9% 1, 240 000 ml @ 100 mls/hr IV . Q10H [facility] Rx#:[id number] Intake, IV Titration 1300 Amount Dextrose 5% in Water 1, 1200 000 ml @ 100 mls/hr IV . Q10H [facility] Rx#:[id number] Piperacillin-Tazobactam 3 100 .375 gm In Sodium Chloride 0.9% 100 ml @ 25 mls/hr IVPB Q8HR [facility] Rx# :[id number] Other: Voiding Method Incontinent Incontinent Incontinent # Voids 2 # Bowel Movements 2 1 - Exam GENERAL EXAM: Alert, very pleasant, but confused 75-year-old white female on the 100% nonrebreather, and the pulse ox between 87-92%, comfortable in no apparent distress. HEAD: Normocephalic/atraumatic. EYES: Normal reaction of pupils, equal size. Conjunctiva pink, sclera white. NOSE: Clear with pink turbinates. THROAT: No erythema or exudates. NECK: No masses, no JVD, no thyroid enlargement, no adenopathy. CHEST: No chest wall deformity. Symmetrical expansion. LUNGS: Equal air entry with scattered rhonchi CVS: Regular rate and rhythm, normal S1 and S2, no gallops, no murmurs, no rubs ABDOMEN: Soft, nontender. No hepatosplenomegaly, normal bowel sounds, no gua rding or rigidity. EXTREMITIES: No clubbing, no edema, no cyanosis, 2+ pulses and upper and lower extremities. MUSCULOSKELETAL: Muscle strength and tone normal. SPINE: No scoliosis or deformity SKIN: No rashes CENTRAL NERVOUS SYSTEM: Alert and oriented -2. No focal deficits, tone is normal in all 4 extremities. PSYCHIATRIC: Alert and oriented -2. Appropriate affect. Intact judgment and insight. - Labs CBC & Chem 7: 02/21/21 07:02 02/20/21 07:34 Labs: Abnormal Lab Results - Last 24 Hours (Table) 02/20/21 02/20/21 02/21/21 Range/Units 17:04 20:02 06:54 RBC (4.10-5.20) X 10*6/uL Hgb (12.0-15.0) g/dL Hct (37.2-46.3) % MCHC (32.0-37.0) g/dL RDW (11.5-14.5) % Absolute Nucleated RBC (0.00-0.00) X 10*3/uL Immature Gran # (0.00-0.04) X 10*3/uL Lymphocytes # (0.90-5.00) X 10*3/uL Eosinophils # (0.04-0.35) X 10*3/uL NRBC/100 WBC Diff (0.0-0.0) /100 WBCS POC Glucose (mg/dL) 176 H 217 H 191 H (75-99) mg/dL 02/21/21 02/21/21 Range/Units 07:02 11:44 RBC 2.98 L (4.10-5.20) X 10*6/uL Hgb 8.3 L (12.0-15.0) g/dL Hct 27.7 L (37.2-46.3) % MCHC 30.0 L (32.0-37.0) g/dL RDW 17.0 H (11.5-14.5) % Absolute Nucleated RBC 0.08 H (0.00-0.00) X 10*3/uL Immature Gran # 0.16 H (0.00-0.04) X 10*3/uL Lymphocytes # 0.74 L (0.90-5.00) X 10*3/uL Eosinophils # 0 L (0.04-0.35) X 10*3/uL NRBC/100 WBC Diff 1.0 H (0.0-0.0) /100 WBCS POC Glucose (mg/dL) 197 H (75-99) mg/dL Microbiology - Last 24 Hours (Table) 02/18/21 19:00 Blood Culture - Preliminary Blood No Growth after 48 hours 02/14/21 08:16 Blood Culture - Final Blood No Growth after 144 hours 02/14/21 08:00 Blood Culture - Final Blood No Growth after 144 hours Assessment and Plan Plan: Assessment: 1 Acute mental status changes, likely due to covid 19 infection metabolic encephalopathy. Mental status is improving and the patient was able to follow commands and answer simple questions without any major difficulties. No major changes in her condition since yesterday and the patient has a DNR/DNI CODE STATUS. The patient's condition decompensated. She is more lethargic and she is hesitant to worsening respiratory status and respiratory failure. No major change since yesterday. She remains in the 100% nonrebreather facemask to maintain a saturation above 90%. Multiple status is still fluctuating. The patient also developed a hyperchloremic hypernatremia and she is quite dry and he'll need some IV fluids. Oral intake is quite 2 Acute hypoxic respiratory failure secondary to acute CoVID 19 pneumonia, currently 100% nonrebreather facemask, chest x-ray showing diffuse breath and pulmonary infiltrates with obvious interval worsening. She is on IV Zosyn for any potential aspiration. I think there predominant presentation is progression of her underlying Covid 19 pneumonia. 3 Hypotension, which may relate to underlying sepsis. Recovered and off pressors And the patient required pressors initially at time of admission and currently the patient is off vasopressors. 4 History of hyperlipidemia. 5 History of hypertension. 6 History of hypothyroidism. 7 Possible history of underlying COPD. the patient is currently on a combination of Spiriva and Symbicort 8 History of diabetes mellitus. 9 History of ongoing tobacco use with nicotine addiction. 10 History of depression and schizophrenia. 11 transaminitis, could be related to COVID. Underlying cholecystitis is felt to be less likely, LFTs are improving. Pro-calcitonin level is elevated and this needs to be monitored. Plan: Continue current medical treatment, and maintain aspiration precautions, weaning FiO2, follow-up chest x-ray tomorrow, we'll need to set of lites and renal profile today, continue same dose IV steroids, tinea D5W at 100 ML per hour, continue prophylactic Lovenox, obtain follow-up inflammatory markers, and follow d-dimer and chest x-ray tomorrow. I performed a history & physical examination of the patient and discussed their management with my nurse practitioner, Johanna Brantley. I reviewed the nurse practitioner's note and agree with the documented findings and plan of care. Lung sounds are positive for diminished breath sounds with a few scattered rhonchi. The findings and the impression was discussed with the patient. I attest to the documentation by the nurse practitioner. Time with Patient: Less than 30
[2021-02-21 15:20] LABS: African American GFR (CKD) 97.5 (60.0-200.0); Albumin 2.9 g/dL (3.80-4.90); Albumin/Globulin Ratio 1.12 (1.60-3.17); Anion Gap 8.1 mmol/L (4.00-12.00); BUN/Creat Ratio 25.71 Ratio (12.00-20.00); Calcium 9.1 mg/dL (8.7-10.3); Carbon Dioxide 28.9 mmol/L (21.6-31.8); Globulin 2.6 g/dL (1.6-3.3); Non-African American GFR(CKD) 84.2 (60.0-200.0); Potassium 3.6 mmol/L (3.5-5.5); Total Bilirubin 0.3 mg/dL (0.2-1.2); Total Protein 5.5 g/dL (6.2-8.2)
--- NOTE | 2021-02-21 15:37 | PN ---
PROGRESS NOTE DATE OF SERVICE: 02/21/2021 REASON FOR FOLLOWUP: Pneumonia. INTERVAL HISTORY: The patient is currently afebrile. The patient remains on high-flow oxygen along with non-rebreather. Still saturating around 87%. The patient is currently lethargic and is unable to provide any history. Oral intake remains poor. No vomiting or any diarrhea has been reported. PHYSICAL EXAMINATION: Blood pressure 135/83 with a pulse of 85, temperature 97.6. She is 87% on 15 L high- flow oxygen. General description is an elderly female lying in bed in no distress. RESPIRATORY SYSTEM: Unlabored breathing with decreased intensity of breath sounds. No wheeze. HEART: S1, S2. Regular rate and rhythm. ABDOMEN: Soft. No tenderness. LABS: Hemoglobin 8.3, white count 8.30. DIAGNOSTIC IMPRESSION AND PLAN: Patient with pneumonia, likely combination of COVID-19 plus/minus aspiration and a question of cholecystitis. Patient has been on Zosyn in addition to the Solu-Medrol, Lovenox; to continue. Overall prognosis remains guarded. Continue with supportive care. MMODL / IJN: [id number] /
[2021-02-21 16:43] LABS: Glucose,Whole Blood 161 mg/dL (75-99)
[2021-02-21 20:14] LABS: Glucose,Whole Blood 176 mg/dL (75-99)
[2021-02-21] MEDS: HYDROmorphone 0.5 MG/0.5 ML SYRINGE IVP PRN (22:22)
[2021-02-22] MEDS: methylPREDNISolone SOD SUCCI 125 MG/2 ML VIAL IV SCH ×4 (02:02→20:39)
[2021-02-22 06:53] LABS: Glucose,Whole Blood 185 mg/dL (75-99)
[2021-02-22 07:01] LABS: D-Dimer 5.92 mg/L FEU (<0.60)
[2021-02-22 07:02] LABS: Partial Thromboplastin Time 20.8 sec (22.0-30.0)
[2021-02-22] MEDS: ALBUTEROL HFA INHALER INHALATION SCH ×4 (07:18→20:12)
[2021-02-22] MEDS: TIOTROPIUM 2.5 MCG INHALER INHALATION SCH (07:18)
[2021-02-22] MEDS: SYMBICORT 80-4.5 MCG INHALER INHALATION SCH ×2 (07:18→20:13)
[2021-02-22] MEDS: DEXTROSE 5% IN WATER 1,000 ML IV SCH ×2 (07:30→16:08)
[2021-02-22] MEDS: INSULIN ASPART (NovoLOG) 100 UNIT/ML VIAL SQ SCH ×4 (07:42→20:20)
[2021-02-22] MEDS: PANTOPRAZOLE 40 MG/10 ML VIAL IV SCH (07:42)
[2021-02-22] MEDS: amLODIPine 5 MG TAB PO SCH (07:43)
[2021-02-22] MEDS: BACLOFEN 10 MG TAB PO SCH ×2 (07:43→19:25)
[2021-02-22] MEDS: ENOXAPARIN 40 MG/0.4 ML SYRINGE SQ SCH (07:43)
[2021-02-22] MEDS: ZINC SULFATE 220 MG CAP PO SCH (07:43)
[2021-02-22] MEDS: PIPERACILLIN-TAZOBACTAM 3.375 GM in SODIUM CHLORIDE 0.9% 100 ML IVPB SCH ×2 (07:43→16:09)
[2021-02-22] MEDS: ASCORBIC ACID 500 MG TAB PO SCH (07:43)
[2021-02-22] MEDS: guaiFENesin SYRUP 100MG/5ML 200 MG/10 ML CUP PO SCH ×2 (07:44→19:25)
[2021-02-22] MEDS: CLOPIDOGREL 75 MG TAB PO SCH (07:44)
[2021-02-22] MEDS: GABAPENTIN 300 MG CAP PO SCH ×3 (07:44→19:25)
[2021-02-22] MEDS: DOCUSATE 100 MG CAP PO SCH ×2 (07:44→19:25)
[2021-02-22] MEDS: LEVOTHYROXINE 50 MCG TAB PO SCH (07:44)
[2021-02-22] MEDS: metFORMIN 500 MG TAB PO SCH ×2 (07:44→19:26)
[2021-02-22] MEDS: buPROPion SR 150 MG TABLET.ER PO SCH ×2 (07:45→19:25)
[2021-02-22] MEDS: risperiDONE 0.5 MG TAB PO SCH ×2 (07:45→19:26)
[2021-02-22] MEDS: polyethylene glycoL 3350 17 GM POWD.PACK PO SCH (07:45)
[2021-02-22] MEDS: FLUTICASONE 50MCG/SPRAY NASAL 16GM EA NOSTRIL SCH (07:46)
[2021-02-22] MEDS: CHOLECALCIFEROL 10 MCG (400 IU) TABLET PO SCH (07:46)
--- NOTE | 2021-02-22 07:56 | XR ---
EXAMINATION TYPE: XR chest 1V portable DATE OF EXAM: 02/22/2021 COMPARISON: 02/19/2021 HISTORY: Shortness of breath TECHNIQUE: Single frontal view of the chest is obtained. FINDINGS Diffuse marked miliary pattern alveolar infiltrates unchanged compared to the prior study. There is a retrocardiac opacity secondary to the lung infiltrates and likely small pleural effusion. There is n o pneumothorax. Heart size is normal for the technique. The osseous structures are intact. IMPRESSION: No change in the diffuse lung infiltrates is described above.
[2021-02-22 09:27] LABS: African American GFR (CKD) 102.6 (60.0-200.0); Anion Gap 7.7 mmol/L (4.00-12.00); C Reactive Protein 3.8 mg/dL (0.0-0.8); Calcium 8.8 mg/dL (8.7-10.3); Carbon Dioxide 29.3 mmol/L (21.6-31.8); Non-African American GFR(CKD) 88.5 (60.0-200.0); Potassium 3.8 mmol/L (3.5-5.5)
--- NOTE | 2021-02-22 09:59 | P.PN ---
Subjective Progress Note Date: 02/22/21 \ 75-year-old female patient who presented to the ED because of altered mentation and diminished level of consciousness. The patient resides in a long-term. She was hypoxic and she was also febrile and she appeared to have had aspirated some emesis. The patient got admitted to the intensive care unit. She was placed on 100% nonrebreather facemask and subsequently she tested positive for coronary artery/Covid 19. She was hypotensive and she was supported with pressors and she was placed on norepinephrine infusion. An underlying cause status is DNR/DNI. No much history could be obtained from this patient. The patient apparently has had history of COPD, diabetes mellitus, hypertension and hypothyroidism as well as schizophrenia/depression and she has history of chronic smoking. Her white cell count at time of admission was 7.1 with a sodium level of 128. She had a normal renal function. The chest X-ray showed bilateral infiltrates right more than left consistent with underlying Covid 19 related pneumonia. subsequently, the patient was transitioned to oxygen at 10 L per minute nasal cannula and her oxygen flow was ranging between 8 and 10 L. She continued to have episodes of fever. Her LFTs were abnormal and ultrasound the liver showed some hepatomegaly and there was some also thickening of the gallbladder wall. The patienthad some rise in the LFTs including AST and ALP. Nevertheless the bilirubin was within normal limits. The patient's LDH level was 670 from . with a CRP of 70.9. The patient was placed on Decadron 6 mg IV every 24 hours. The patient was placed on Lovenox 40 mg subcu every 24 hours. She was also placed on empiric antibiotic coverage with IV Zosyn 3.375 g every 8 hours. IV fluids are running at 100cc/hr of normal saline. On today's evaluation of 02/18/2021, the patient is being seen for a follow-up. Her mentation is not absolutely appropriate. She continues to be lethargic and diminished level of consciousness. No agitation. She is able to respond and answer some from simple commands. She is on a Ventimask with 15 L of oxygen by nasal cannula. The current pulse ox is around 94%. She is hemodynamically stable. She is known to have COPD, hypertension, diabetes mellitus, and hypothyroidism. She also has history of schizophrenia/depression. Monitor blood work, her LDH is CRP has not been checked or they are pending today for now. Meanwhile, the rest of the blood work shows no major abnormalities. Serum bicarb is 19. BNP is at 60 with a creatinine of 0.7. D-dimer from several days ago was 3.7 and this needs to be rechecked. There were discussed and 0.5 with a hemoglobin of 9.2. The patient is currently on 0.9 at KVO. She is also covered empirically with IV Zosyn. Pro-calcitonin was at 3.13 from 02/17/2021 the LFTs are showing improvement. The AST is down to 116, ALT is down to 271 and a b ilirubin is on 0.2. The cultures are negative including blood cultures 2. 02/19/2021, the patient is doing poorly. After being on a Ventimask , the patient was briefly tried on high flow oxygen at 15 L and the patient failed and significant the patient had 3 based on the percent nonrebreather facemask. I saw the patient. She has crackles throughout the lungs bilaterally. She was quite short of breath. She was congested. She was unable to speak in full sentences. Her pulse ox was in the low 90s. At that point, I ordered a chest x-ray which with interval worsening and the patient has developed diffuse breath and pulmonary infiltrates and complaining the x-rays, there is obvious worsening in the diffuse bilateral pulmonary infiltration. The patient remains on IV Zosyn as a broad-spectrum antibiotic coverage. Labs from today are still pending for now. She is unfortunately doing poorly. She has a DNR/DNI CODE STATUS. She has history of schizophrenia. There is some use of accessory muscles of breathing also. She also is altered. She is lethargic. She is weak. She is at a higher risk of aspiration. 02/20/2021, the patient remains on 100percent nonrebreather facemask. Her condition probably is unchanged compared to yesterday. She is following some simple commands. She was aware of her location this morning. She is lethargic however. At times she gets agitated and confused and she starts pulling on her mask and her IV lines. There is a sitter at the bedside. She is a DNR/DNI CODE STATUS. Oral intake is minimal and very limited at this point in time as mentioned earlier. I noticed that her urine output has dropped and the patient also became hypernatremic. The sodium level is up to 150 and the chloride is 114 with a serum bicarb of 31. Glucose at 202. LFTs are showing some mild transaminitis which is improving. Serum protein is at 5.6 with an albumin level of 2.5. LDH level was 1154 and the CRP is at 165. The d-dimer from yesterday was at 3.83. The chest x-ray showing diffuse pleural parenchymal disease On 02/21/2021 patient seen in follow-up. Awake and alert, she seems to be a little bit more conversant on today's exam, denies any worsening dyspnea, she still requiring 100% nonrebreather mask which she frequently pulls off although does not appear to be in any acute distress when the oxygen is off, her pulse ox is 87-92 %. Seems to be breathing comfortably, she is afebrile, hemodynamically appears to be stable, less chest x-ray was done on 02/19/2021 showing diffuse pleural parenchymal changes there is stable. Her blood work has been reviewed, last set of inflammatory markers of LDH and CRP were still elevated on 2020, we haven't had a recheck in the last couple days, her pro-calcitonin level was elevated on 02/17/2021 at 3.13. patient is on Zosyn for empiric antibiotic coverage for possibility of aspiration, she remains on IV steroids currently at 60 mg every 6 hours of Solu-Medrol, she is on inhalers, and prophylactic Lovenox. She is on nectar thick liquids per speech therapy recommendations. She requires assistance and close supervision with meals. 02/22/2021, there has been further decompensation the patient's overall status. The patient is struggling with her breathing. She is desaturating. She is currently on 100% nonrebreather facemask along with a 15 L nasal cannula. Her pulse ox currently is 74-78%. Chest x-ray is consistent with diffuse bilateral pulmonary infiltrates, again consistent with Covid 19 related pneumonia. He is on empiric antibiotic coverage with IV Zosyn. She is also on steroids and the patient is receiving Solu-Medrol 60 mg every 6 hours. The patient is also on Lovenox 40 mg subcutaneous daily. She is unable to eat. She is unable to communicate. She is moaning. She is quite in distress. Her blood work from today shows a d-dimer of 5.92 with a sodium level of 147 and her sodium level is improving. Her CRP is down to 3.8 with an LDH level of 430. Liver function tests are mildly elevated and the patient had a mild transaminitis related to Covid 19. As mentioned earlier, she carries a DNR/DNI CODE STATUS. He is extremely poor in terms of her performance and functional status. She has history of schizophrenia. She is quite lethargic. She is not following commands at this point in time. He also has history of diabetes mellitus and COPD. Objective - Vital Signs Vital signs: Vital Signs Temp 98.8 F 02/22/21 09:07 Pulse 87 02/22/21 09:07 Resp 22 02/22/21 09:07 BP 148/79 02/22/21 09:07 Pulse Ox 78 L 02/22/21 09:07 Intake & Output 02/21/21 02/22/21 02/22/21 18:59 06:59 18:59 Intake Total 50 Balance 50 Intake: Oral 50 Other: Voiding Method Incontinent Incontinent # Voids 2 2 # Bowel Movements 1 1 - Exam GENERAL EXAM: Alert, frail 75-year-old female patient, on 100% nonrebreather facemask., comfortable in no apparent distress. Patient is in [id number] degree of of respiratory distress. She is a mouth breather. He is quite lethargic as she has not been responding activity. She does follow some simple commands however. I felt that the patient is obviously worse compared to yesterday and she is having more difficulty breathing. She was unable to tolerate coming off the 100% nonrebreather., Also she is quite moaning HEAD: Normocephalic. EYES: Normal reaction of pupils, equal size. NOSE: Clear with pink turbinates. THROAT: No erythema or exudates. NECK: No masses, no JVD. CHEST: No chest wall deformity. LUNGS: Equal air entry with scattered rhonchi, crackles in the posterior bases right greater than left, The crackles and diffuse throughout the lung his bilaterally heard anteriorly and posteriorly. CVS: S1 and S2 normal with no audible murmur, regular rhythm. ABDOMEN: No hepatosplenomegaly, normal bowel sounds, no guarding or rigidity. SPINE: No scoliosis or deformity SKIN: No rashes CENTRAL NERVOUS SYSTEM: No focal deficits, tone is normal in all 4 extremities. The patient is very much lethargic and somnolent at times confused. EXTREMITIES: There is no peripheral edema. No clubbing, no cyanosis. Peripheral pulses are intact. - Labs CBC & Chem 7: 02/21/21 07:02 02/22/21 05:46 Labs: Abnormal Lab Results - Last 24 Hours (Table) 02/21/21 02/21/21 02/21/21 Range/Units 07:02 11:44 16:40 APTT (22.0-30.0) sec D-Dimer (<0.60) mg/L FEU Sodium 152 H (135-145) mmol/L Chloride 115 H (96-109) mmol/L BUN/Creatinine Ratio 25.71 H (12.00-20.00) Ratio Glucose 197 H (70-110) mg/dL POC Glucose (mg/dL) 197 H 161 H (75-99) mg/dL AST 36 H (13-35) U/L ALT 129 H (8-44) U/L Lactate Dehydrogenase (120-246) U/L C-Reactive Protein (0.0-0.8) mg/dL Total Protein 5.5 L (6.2-8.2) g/dL Albumin 2.90 L (3.80-4.90) g/dL Albumin/Globulin Ratio 1.12 L (1.60-3.17) g/dL 02/21/21 02/22/21 02/22/21 Range/Units 20:13 05:46 05:46 APTT 20.8 L (22.0-30.0) sec D-Dimer 5.92 H (<0.60) mg/L FEU Sodium 147 H (135-145) mmol/L Chloride 110 H (96-109) mmol/L BUN/Creatinine Ratio 25.00 H (12.00-20.00) Ratio Glucose 180 H (70-110) mg/dL POC Glucose (mg/dL) 176 H (75-99) mg/dL AST (13-35) U/L ALT (8-44) U/L Lactate Dehydrogenase 430 H (120-246) U/L C-Reactive Protein 3.8 H (0.0-0.8) mg/dL Total Protein (6.2-8.2) g/dL Albumin (3.80-4.90) g/dL Albumin/Globulin Ratio (1.60-3.17) g/dL 02/22/21 Range/Units 06:51 APTT (22.0-30.0) sec D-Dimer (<0.60) mg/L FEU Sodium (135-145) mmol/L Chloride (96-109) mmol/L BUN/Creatinine Ratio (12.00-20.00) Ratio Glucose (70-110) mg/dL POC Glucose (mg/dL) 185 H (75-99) mg/dL AST (13-35) U/L ALT (8-44) U/L Lactate Dehydrogenase (120-246) U/L C-Reactive Protein (0.0-0.8) mg/dL Total Protein (6.2-8.2) g/dL Albumin (3.80-4.90) g/dL Albumin/Globulin Ratio (1.60-3.17) g/dL Microbiology - Last 24 Hours (Table) 02/18/21 19:00 Blood Culture - Preliminary Blood No Growth after 72 hours Assessment and Plan Plan: 1 Acute mental status changes, likely due to covid 19 infection metabolic encephalopathy. Overall condition is decompensated. The patient is on telemetry doing worse. She is more restless, agitated, moaning, and pain and is same time she has become progressively more hypoxic over the past 24 hours and currently her pulse ox in the mid 70s. She doesn't 100% nonrebreather facemask along with a nasal cannula. She has a DNR/DNI CODE STATUS. Her chest x-ray is consistent still with diffuse by the pulmonary infiltrates from Covid 19 related pneumonia. 2 Acute hypoxic respiratory failure secondary to acute CoVID 19 pneumonia, currently 100% nonrebreather facemask, chest x-ray showing diffuse breath and pulmonary infiltrates with obvious interval worsening. She is on IV Zosyn for any potential aspiration. I think there predominant presentation is progression of her underlying Covid 19 pneumonia. 3 Hypotension, which may relate to underlying sepsis. Recovered and off pressors And the patient required pressors initially at time of admission and currently the patient is off vasopressors. 4 History of hyperlipidemia. 5 History of hypertension. 6 History of hypothyroidism. 7 Possible history of underlying COPD. the patient is currently on a combination of Spiriva and Symbicort 8 History of diabetes mellitus. 9 History of ongoing tobacco use with nicotine addiction. 10 History of depression and schizophrenia. 11 transaminitis, could be related to COVID. Underlying cholecystitis is felt to be less likely, LFTs are improving. Pro-calcitonin level is elevated and this needs to be monitored. Plan Contacted the son, David, and he is the POA, and discussed with him the condition and outcome which is poor and I recommended hospice care. This was agreeable and he wanted to run this by the rest of the family and get back to us. Comfort care will be introduced/hospice probably within next few hours. DNR/DNI CODE STATUS
[2021-02-22 11:46] LABS: Glucose,Whole Blood 198 mg/dL (75-99)
--- NOTE | 2021-02-22 14:12 | P.PN ---
Subjective Progress Note Date: 02/22/21 Sofía Leslie, is a 75-year-old female patient of Dr. Jacob who presented to [facility] emergency room with a chief complaint of being and responsive, patient was last seen at the nursing facility where she leaves at 3 AM, she was found in the morning and responsive EMS were called pulse ox was in the 80s, and temperature was 103 she was evaluated in the emergency room vital examination on arrival to emergency room reveals a temperature of 101.2 pulse 124 respiration 28 blood pressure 129/74 pulse ox 95% on nonrebreather mask at 15 L her white blood count was 7.1 hemoglobin 10.2 platelet count 338 sodium 128 glucose 187 AST and ALT normal BUN 15 creatinine 0.79 coronavirus PCR was positive. EKG was done in the emergency room and revealed sinus tachycardia with left anterior fascicular block and possible old septal infarct as evidenced by poor R-wave progression in the anterior leads. Chest x-ray revealed mild cardiomegaly with small bilateral pleural effusions, right upper lung and bybasilar acute infiltrates. Patient was admitted to intensive care unit pulmonary consultation was requested. Patient is unable to provide any information for review of system and past med ical history. From review of her chart, she has a past medical history of hypertension with hypertensive heart disease, history of hyperlipidemia, history of hypothyroidism, history of pulmonary hypertension, history of COPD, and history of diabetes Mellitus. On 02/15/2021 patient was seen and examined in the ICU she is alert slightly confused in no apparent distress she is complaining of nose congestion she stated that her shortness of breath is better she is still having occasional cough she is complaining of tenderness in the right heel area site of a small open ulcer, otherwise she denies any complaints there is no fever or chills no headache or dizziness no chest pain no nausea or vomiting no abdominal pain no diarrhea no blood in the stools and no urinary symptoms. On 02/16/2021 patient was seen and examined in the ICU she is alert and oriented 3 in no apparent distress she is complaining of abdominal discomfort mostly in the epigastric area she is still complaining of cough and shortness of breath otherwise she denies any complaints there is no fever or chills no headache or dizziness no chest pain no nausea or vomiting no diarrhea no blood in the stools no burning with urination no frequency or urgency and no hematuria. Liver enzymes are significantly elevated today. On 02/17/2021 patient was seen and examined on the medical floor she is alert and oriented in no apparent distress, she is still complaining of cough, shortness of breath, and abdominal discomfort otherwise she denies any complaints there is no fever or chills no headache or dizziness no chest pain no nausea or vomiting, no diarrhea no blood in the stools no burning with urination no frequency or urgency and no hematuria. On 02/18/2021 patient was seen and examined on the medical floor she is alert slightly confused in no apparent distress, she was having episodes of severe elevation in her temperature up to 104.1 today her blood pressure is 98/61 pulse ox 94% on 15 L nasal cannula pulmonary critical care notified and evaluated the patient, at this time I will repeat the blood culture and sputum culture I will notify infectious disease to reevaluate patient in regard to significant mara vation in her temperature today otherwise patient is also complaining of shortness of breath she denies any other complaints at this time there is no headache or dizziness no chest pain no nausea or vomiting no abdominal pain no diarrhea no blood in the stools no burning with urination no frequency or urgency no hematuria On 02/19/2021 patient was seen and examined on the medical floor she is alert and oriented in no apparent distress her fever has somewhat subsided this morning temperature is 98.6 and 100.7 it was significantly more elevated yesterday her pulse is 75 respiration 18 blood pressure 117/73 pulse ox 92% on 15 L nonrebreather mask she is complaining of cough and shortness of breath otherwise she denies any complaints there is no headache or dizziness no chest pain no nausea or vomiting no abdominal pain no diarrhea no blood in the stools no burning with urination no frequency or urgency and no hematuria pulmonary critical care, surgery, and infectious disease are following closely On 02/20/2021 patient was seen and examined on the medical floor she is alert and oriented in no apparent she is complaining of cough and shortness of breath, her pulse ox 92% on 15 L nonrebreather mask she is complaining of cough and shortness of breath otherwise she denies any complaints there is no headache or dizziness no chest pain no nausea or vomiting no abdominal pain no diarrhea no blood in the stools no burning with urination no frequency or urgency and no hematuria pulmonary critical care, surgery, and infectious disease are following closely On 02/21/2021 patient was seen and examined on the medical floor she is alert and oriented 3 she is still complaining of shortness of breath with any activity and complaining of cough otherwise she denies any complaints there is no fever or chills no headache or dizziness no chest pain no palpitation no nausea or vomiting no abdominal pain no diarrhea no blood in the stools no burning with urination no frequency or urgency and no hematuria. On 02/22/2021 patient was seen and examined on the medical floor she is more let hargic today her oxygen saturation is low despite being on nonrebreather mask at 15 L she was evaluated by Dr. Sherine walton who approached her family in that regard to switching her CODE STATUS to comfort care and initiating hospice care. Objective - Vital Signs Vital signs: Vital Signs Temp 98.6 F 02/22/21 13:54 Pulse 87 02/22/21 13:54 Resp 22 02/22/21 13:54 BP 145/75 02/22/21 13:54 Pulse Ox 82 L 02/22/21 13:54 Intake & Output 02/21/21 02/22/21 02/22/21 18:59 06:59 18:59 Intake Total 50 Balance 50 Intake: Oral 50 Other: Voiding Method Incontinent Incontinent Incontinent # Voids 2 2 # Bowel Movements 1 1 - Exam In general patient is alert responsive in no apparent distress, currently she is maintained on oxygen 10 L high flow HEENT head normocephalic and atraumatic Neck is supple no JVD no goiter no lymphadenopathy Chest exam reveals coarse crackles in both lung conley with wheezing Cardiac exam reveals regular heart sounds S1 and S2 no gallops no murmurs Abdomen is soft nontender no organomegaly with normal bowel sounds Extremity exam reveals no edema no cyanosis or clubbing, there is a small ulcer on the lateral side of the right heel area with tenderness Neurological examination is limited but does not show any gross focal deficit - Labs CBC & Chem 7: 02/21/21 07:02 02/22/21 05:46 Labs: Abnormal Lab Results - Last 24 Hours (Table) 02/21/21 02/21/21 02/21/21 Range/Units 07:02 16:40 20:13 APTT (22.0-30.0) sec D-Dimer (<0.60) mg/L FEU Sodium 152 H (135-145) mmol/L Chloride 115 H (96-109) mmol/L BUN/Creatinine Ratio 25.71 H (12.00-20.00) Ratio Glucose 197 H (70-110) mg/dL POC Glucose (mg/dL) 161 H 176 H (75-99) mg/dL AST 36 H (13-35) U/L ALT 129 H (8-44) U/L Lactate Dehydrogenase (120-246) U/L C-Reactive Protein (0.0-0.8) mg/dL Total Protein 5.5 L (6.2-8.2) g/dL Albumin 2.90 L (3.80-4.90) g/dL Albumin/Globulin Ratio 1.12 L (1.60-3.17) g/dL 02/22/21 02/22/21 02/22/21 Range/Units 05:46 05:46 06:51 APTT 20.8 L (22.0-30.0) sec D-Dimer 5.92 H (<0.60) mg/L FEU Sodium 147 H (135-145) mmol/L Chloride 110 H (96-109) mmol/L BUN/Creatinine Ratio 25.00 H (12.00-20.00) Ratio Glucose 180 H (70-110) mg/dL POC Glucose (mg/dL) 185 H (75-99) mg/dL AST (13-35) U/L ALT (8-44) U/L Lactate Dehydrogenase 430 H (120-246) U/L C-Reactive Protein 3.8 H (0.0-0.8) mg/dL Total Protein (6.2-8.2) g/dL Albumin (3.80-4.90) g/dL Albumin/Globulin Ratio (1.60-3.17) g/dL 02/22/21 Range/Units 11:38 APTT (22.0-30.0) sec D-Dimer (<0.60) mg/L FEU Sodium (135-145) mmol/L Chloride (96-109) mmol/L BUN/Creatinine Ratio (12.00-20.00) Ratio Glucose (70-110) mg/dL POC Glucose (mg/dL) 198 H (75-99) mg/dL AST (13-35) U/L ALT (8-44) U/L Lactate Dehydrogenase (120-246) U/L C-Reactive Protein (0.0-0.8) mg/dL Total Protein (6.2-8.2) g/dL Albumin (3.80-4.90) g/dL Albumin/Globulin Ratio (1.60-3.17) g/dL Microbiology - Last 24 Hours (Table) 02/18/21 19:00 Blood Culture - Preliminary Blood No Growth after 72 hours Assessment and Plan Plan: Acute Covid 19 infection with evidence of multifocal pneumonia Acute hypoxic respiratory failure Underlying history of hypertension Underlying history of hyperlipidemia Underlying history of hypothyroidism Underlying history of pulmonary hypertension Underlying history of hypertensive heart disease Underlying history of schizophrenia, major depression, and paranoid personality disorder per chart Small ulcer on the lateral side of the right heel area with tenderness Will consult vascular surgery for possible debridement Elevated liver enzymes will stop Lipitor at this time will check liver ultrasound and monitor closely, ultrasound revealing evidence of acute cholecystitis, patient maintained on IV Zosyn, surgical consultation requested Patient condition worsening despite maximal care, family approached by pulmonary critical care in regard to hospice care awaiting family decision.
[2021-02-22 16:18] LABS: Glucose,Whole Blood 184 mg/dL (75-99)
--- NOTE | 2021-02-22 18:02 | PN ---
PROGRESS NOTE DATE OF SERVICE: 02/22/2021 REASON FOR FOLLOWUP: Pneumonia and possible cholecystitis. INTERVAL HISTORY: The patient currently afebrile. The patient remains to be lethargic. She remains to be on high-flow nasal cannula oxygen in addition to nonrebreather. She is lethargic and unable to provide any history. No vomiting or diarrhea has been reported by nursing staff. PHYSICAL EXAMINATION: Blood pressure 145/75, pulse of 87, temperature 98.6. She is 92% on high-flow oxygen. General description is an elderly female lying in bed in no distress. Respiratory system: Unlabored breathing with decreased intensity of breath sounds. No wheeze. HEART: S1, S2. Regular. ABDOMEN: Soft, no tenderness. LABS: D-dimer up to 5.92, creatinine 0.6. CRP 3.8. DIAGNOSTIC IMPRESSION AND PLAN: Patient with pneumonia likely Covid 19plus minus aspiration with question of cholecystitis in this patient covered with the Zosyn, Solu-Medrol, zinc, and Lovenox. Dose may need to be adjusted now because of her elevated D-dimer. Discussed with pulmonary. Continue supportive care. MMODL / IJN: [id number] /
[2021-02-22 19:52] LABS: Glucose,Whole Blood 148 mg/dL (75-99)
[2021-02-22 23:06] VITALS: BP 153/84; PULSE 105; RESP 21; TEMP 97.6
[2021-02-23] MEDS: PIPERACILLIN-TAZOBACTAM 3.375 GM in SODIUM CHLORIDE 0.9% 100 ML IVPB SCH (00:18)
[2021-02-23] MEDS: DEXTROSE 5% IN WATER 1,000 ML IV SCH (00:19)
--- NOTE | 2021-02-23 11:58 | P.DS ---
Providers Date of admission: 02/14/21 11:32 Expected date of discharge: 02/22/21 Attending physician: Agnieszka Sanchez Consults: 02/14/21 11:32 Consult Physician Stat Consulting Provider: Santy Robbins Consult Reason/Comments: COVID pneumonia, altered mental status, hypoxia Do you want consulting provider notified?: Yes 02/14/21 14:59 Consult Physician Routine Consulting Provider: Trena Jarrell Consult Reason/Comments: Pneumonia, sepsis Do you want consulting provider notified?: Yes 02/17/21 09:49 Consult Physician Routine Consulting Provider: Feliz Billings Consult Reason/Comments: cholecystitis Do you want consulting provider notified?: Yes Primary care physician: Aby Jacob Hospital Course: Discharge diagnosis Terminal diagnosis acute hypoxic respiratory failure secondary to acute covid 19 pneumonia Acute Covid 19 infection with evidence of multifocal pneumonia Acute hypoxic respiratory failure Underlying history of hypertension Underlying history of hyperlipidemia Underlying history of hypothyroidism Underlying history of pulmonary hypertension Underlying history of hypertensive heart disease Underlying history of schizophrenia, major depression, and paranoid personality disorder per chart Small ulcer on the lateral side of the right heel area with tenderness Will consult vascular surgery for possible debridement Elevated liver enzymes will stop Lipitor at this time will check liver ultrasound and monitor closely, ultrasound revealing evidence of acute cholecystitis, patient maintained on IV Zosyn, surgical consultation requested Hospital course Sofía Leslie, is a 75-year-old female patient of Dr. Jacob who presented to [facility] emergency room with a chief complaint of being and responsive, patient was last seen at the nursing facility where she leaves at 3 AM, she was found in the morning and responsive EMS were called pulse ox was in the 80s, and temperature was 103 she was evaluated in the emergency room vital examination on arrival to emergency room reveals a temperature of 101.2 pulse 124 respiration 28 blood pressure 129/74 pulse ox 95% on nonrebreather mask at 15 L her white blood count was 7.1 hemoglobin 10.2 platelet count 338 sodium 128 glucose 187 AST and ALT normal BUN 15 creatinine 0.79 coronavirus PCR was positive. EKG was done in the emergency room and revealed sinus tachycardia with left anterior fascicular block and possible old septal infarct as evidenced by poor R-wave progression in the anterior leads. Chest x-ray revealed mild cardiomegaly with small bilateral pleural effusions, right upper lung and bybasilar acute infiltrates. Patient was admitted to intensive care unit pulmonary consultation was requested. Patient is unable to provide any information for review of system and past medical history. From review of her chart, she has a past medical history of hypertension with hypertensive heart disease, history of hyperlipidemia, history of hypothyroidism, history of pulmonary hypertension, history of COPD, and history of diabetes Mellitus. On 02/15/2021 patient was seen and examined in the ICU she is alert slightly confused in no apparent distress she is complaining of nose congestion she stated that her shortness of breath is better she is still having occasional cough she is complaining of tenderness in the right heel area site of a small open ulcer, otherwise she denies any complaints there is no fever or chills no headache or dizziness no chest pain no nausea or vomiting no abdominal pain no diarrhea no blood in the stools and no urinary symptoms. On 02/16/2021 patient was seen and examined in the ICU she is alert and oriented 3 in no apparent distress she is complaining of abdominal discomfort mostly in the epigastric area she is still complaining of cough and shortness of breath otherwise she denies any complaints there is no fever or chills no headache or dizziness no chest pain no nausea or vomiting no diarrhea no blood in the stools no burning with urination no frequency or urgency and no hematuria. Liver enzymes are significantly elevated today. On 02/17/2021 patient was seen and examined on the medical floor she is alert and oriented in no apparent distress, she is still complaining of cough, shortness of breath, and abdominal discomfort otherwise she denies any complaints there is no fever or chills no headache or dizziness no chest pain no nausea or vomiting, no diarrhea no blood in the stools no burning with urination no frequency or urgency and no hematuria. On 02/18/2021 patient was seen and examined on the medical floor she is alert slightly confused in no apparent distress, she was having episodes of severe elevation in her temperature up to 104.1 today her blood pressure is 98/61 pulse ox 94% on 15 L nasal cannula pulmonary critical care notified and evaluated the patient, at this time I will repeat the blood culture and sputum culture I will notify infectious disease to reevaluate patient in regard to significant elevation in her temperature today otherwise patient is also complaining of shortness of breath she denies any other complaints at this time there is no headache or dizziness no chest pain no nausea or vomiting no abdominal pain no diarrhea no blood in the stools no burning with urination no frequency or urgency no hematuria On 02/19/2021 patient was seen and examined on the medical floor she is alert and oriented in no apparent distress her fever has somewhat subsided this morning temperature is 98.6 and 100.7 it was significantly more elevated yesterday her pulse is 75 respiration 18 blood pressure 117/73 pulse ox 92% on 15 L nonrebreather mask she is complaining of cough and shortness of breath otherwise she denies any complaints there is no headache or dizziness no chest pain no nausea or vomiting no abdominal pain no diarrhea no blood in the stools no burning with urination no frequency or urgency and no hematuria pulmonary critical care, surgery, and infectious disease are following closely On 02/20/2021 patient was seen and examined on the medical floor she is alert and oriented in no apparent she is complaining of cough and shortness of breath, her pulse ox 92% on 15 L nonrebreather mask she is complaining of cough and shortness of breath otherwise she denies any complaints there is no headache or dizziness no chest pain no nausea or vomiting no abdominal pain no diarrhea no blood in the stools no burning with urination no frequency or urgency and no hematuria pulmonary critical care, surgery, and infectious disease are following closely On 02/21/2021 patient was seen and examined on the medical floor she is alert and oriented 3 she is still complaining of shortness of breath with any activity and complaining of cough otherwise she denies any complaints there is no fever or chills no headache or dizziness no chest pain no palpitation no nausea or vomiting no abdominal pain no diarrhea no blood in the stools no burning with urination no frequency or urgency and no hematuria. On 02/22/2021 patient was seen and examined on the medical floor she is more lethargic today her oxygen saturation is low despite being on nonrebreather mask at 15 L she was evaluated by Dr. Sherine walton who approached her family in that regard to switching her CODE STATUS to comfort care and initiating hospice care. At approximately 0145 on 02/23/2021 patient patient was made a no code and comfort care prior. Plan - Discharge Summary Discharge Rx Participant: No New Discharge Prescriptions: No Action Mupirocin 2% Oint [Bactroban 2% Oint] 1 applic TOPICAL TID PRN PRN Reason: SKIN LESIONS/INFECTION Meclizine HCl 25 mg PO BID PRN PRN Reason: DIZZINESS Magnesium Hydroxide [Milk of Magnesia] 2,400 mg PO DAILY PRN PRN Reason: Constipation Ipratropium-Albuterol Nebulize [Duoneb 0.5 mg-3 mg/3 ml Soln] 3 ml INHALATION RT-QID PRN PRN Reason: wheeze/cough Carbamide Peroxide [Debrox Otic] 5 drops BOTH EARS DAILY PRN PRN Reason: earwax buildup Betamethasone Dipropionate [Diprolene AF 0.05% Cream] 1 applic TOPICAL BID PRN PRN Reason: Rash Fluticasone/Umeclidin/Vilanter [Trelegy Ellipta 100-62.5-25] 1 puff INHALATION RT-DAILY@1999 ALPRAZolam [Xanax] 0.25 mg PO TID PRN PRN Reason: Anxiety risperiDONE 1.5 mg PO BID@08,1999 Simvastatin [Zocor] 20 mg PO DAILY@1999 amLODIPine [Norvasc] 5 mg PO DAILY@0800 Gabapentin [Neurontin] 300 mg PO TID@0800,1300,1999 polyethylene glycoL 3350 [Miralax] 17 gm PO DAILY@0800 Levothyroxine Sodium [Synthroid] 50 mcg PO DAILY@0800 metFORMIN HCL ER [Glucophage Xr] 500 mg PO HS@1999 guaiFENesin [guaiFENesin Oral Solution] 200 mg PO BID@08,1999 buPROPion HCL [Wellbutrin SR] 150 mg PO BID@08,1999 Docusate [Colace] 100 mg PO BID@799,1999 Vitamin B Complex 1 tab PO DAILY@0800 Baclofen 10 mg PO BID@0800,1999 Acetaminophen Tab [Tylenol] 500 - 1,000 mg PO Q8H PRN PRN Reason: Pain Or Fever > 100.5 Theraworx Relief 1 pump TOPICAL BID PRN PRN Reason: leg CRAMPS Furosemide [Lasix] 20 mg PO DAILY PRN tab PRN Reason: LEG SWELLING Clopidogrel [Plavix] 75 mg PO DAILY tab Benzonatate [Tessalon Perles] 100 mg PO TID PRN cap PRN Reason: Cough Cholecalciferol [Vitamin D3 (10 Mcg = 400 Iu)] 400 unit PO DAILY tab Vitamin C 1000mg/Zinc 15mg 1 tab PO DAILY@0800 Discharge Medication List ALPRAZolam [Xanax] 0.25 mg PO TID PRN 06/15/20 [History] Baclofen 10 mg PO BID@0800,199906/15/20 [History] Betamethasone Dipropionate [Diprolene AF 0.05% Cream] 1 applic TOPICAL BID PRN 06/15/20 [History] Carbamide Peroxide [Debrox Otic] 5 drops BOTH EARS DAILY PRN 06/15/20 [History] Docusate [Colace] 100 mg PO BID@08,199906/15/20 [History] Fluticasone/Umeclidin/Vilanter [Trelegy Ellipta 100-62.5-25] 1 puff INHALATION RT-DAILY@199906/15/20 [History] Gabapentin [Neurontin] 300 mg PO TID@0800,1300,199906/15/20 [History] Ipratropium-Albuterol Nebulize [Duoneb 0.5 mg-3 mg/3 ml Soln] 3 ml INHALATION RT-QID PRN 06/15/20 [History] Levothyroxine Sodium [Synthroid] 50 mcg PO DAILY@0800 06/15/20 [History] Magnesium Hydroxide [Milk of Magnesia] 2,400 mg PO DAILY PRN 06/15/20 [History] Meclizine HCl 25 mg PO BID PRN 06/15/20 [History] Mupirocin 2% Oint [Bactroban 2% Oint] 1 applic TOPICAL TID PRN 06/15/20 [History] Simvastatin [Zocor] 20 mg PO DAILY@199906/15/20 [History] Vitamin B Complex 1 tab PO DAILY@0800 06/15/20 [History] amLODIPine [Norvasc] 5 mg PO DAILY@0806/15/20 [History] buPROPion HCL [Wellbutrin SR] 150 mg PO BID@0800,199906/15/20 [History] guaiFENesin [guaiFENesin Oral Solution] 200 mg PO BID@0800,199906/15/20 [History] metFORMIN HCL ER [Glucophage Xr] 500 mg PO HS@199906/15/20 [History] polyethylene glycoL 3350 [Miralax] 17 gm PO DAILY@0800 06/15/20 [History] risperiDONE 1.5 mg PO BID@0800,199906/15/20 [History] Acetaminophen Tab [Tylenol] 500 - 1,000 mg PO Q8H PRN 10/21/20 [History] Theraworx Relief 1 pump TOPICAL BID PRN 10/21/20 [History] Benzonatate [Tessalon Perles] 100 mg PO TID PRN cap 11/07/20 [Rx] Cholecalciferol [Vitamin D3 (10 Mcg = 400 Iu)] 400 unit PO DAILY tab 11/07/20 [Rx] Clopidogrel [Plavix] 75 mg PO DAILY tab 11/07/20 [Rx] Furosemide [Lasix] 20 mg PO DAILY PRN tab 11/07/20 [Rx] Vitamin C 1000mg/Zinc 15mg 1 tab PO DAILY@0800 02/14/21 [History] Follow up Appointment(s)/Referral(s): [facility] [NON-STAFF] - 1-2 Days Aby Jacob MD [Primary Care Provider] - 1-2 days Patient Instructions/Handouts: Coronavirus Disease 2019 (COVID-19) Discharge Disposition: - Preliminary Cause of Preliminary Cause of : Acute hypoxic respiratory failure secondary to acute COViD 19 pneumonia
--- NOTE | 2021-02-25 08:29 | CDI ---
Documentation Clarification Form Mortality Review Date: 02/25/2021 08:26:11 AM From: Gloria Parkinson RN, CCDS Admit Date: 02/14/2021 11:32:00 AM Patient Name: Sofía Leslie Visit Number: [id number] Discharge Date: 02/23/2021 05:53:00 AM ATTENTION: The Clinical Documentation Specialists (CDI) and [facility] Coding Staff appreciate your assistance in clarifying documentation. Please respond to the clarification below the line at the bottom and electronically sign. The CDI & [facility] Coding staff will review the response and follow-up if needed. Please note: Queries are made part of the Legal Health Record. If you have any questions, please contact the author of this message via ITS. Dr. Agnieszka Sanchez Hypotension related to underlying sepsis has been documented several times in the medical record in a patient requiring vasopressor support. Please review and provide additional documentation to accurately reflect patient SOI/ROM. Patient history/risk factors: COPD, DM2, HTN, Hypothyroid, Pulmonary HTN, Smoker, Depression, Paranoid Schizophrenia Clinical Indicators: 02/14 H&P: Acute Covid 19 infection with evidence of multifocal pneumonia. She was started on norepinephrine drip." 02/14- 02/16 Pulmonary Consult and progress notes: "The patient was hypoxic requiring non-rebreather and also was hypotensive requiring a pressor support and at one time she did drop to 64/40 blood pressure. Hypotension, which may relate to underlying sepsis. Apparently her son said that she he would agree to resuscitation with fluids, and vasopressors but nothing more aggressive than that. The patient's currently on norepinephrine at 7.3 mcg/m. We'll attempt to wean the patient's norepinephrine." 02/17 -02/22 Pulmonary Progress note: "Hypotension, which may relate to underlying sepsis. She was hypotensive and she was supported with pressors and she was placed on norepinephrine infusion. Recovered and off pressors and the patient required pressors initially at time of admission and currently the patient is off vasopressors." 02/14 915 Vitals: HR 85, RR 28, B/P 69/43, Spo2 100% On 100% NRB Documented infection: Sepsis, Covid 19 pneumonia, aspiration pneumonia, cholecystitis Documented End Organ Damage: Acute hypoxic Respiratory failure Treatment: 02/14 [id number] Levophed gtt titrate for B/P 02/14 3.5L 0.9% NS IVF Bolus followed by 100 cc/hr. In your professional opinion, can you please further specify the hypotension related to sepsis if known? Septic Shock Suspected or known causative organism Any associated organ failure Other, please specify Unable to determine (Last Revision: August 2017) septic shock secondary to COVID-19 pneumonitis MTDD
--- NOTE | 2021-02-25 08:44 | CDI ---
Documentation Clarification Form Mortality Review Date: 02/25/2021 08:31:19 AM From: Gloria Parkinson RN, CCDS Admit Date: 02/14/2021 11:32:00 AM Patient Name: Sofía Leslie Visit Number: [id number] Discharge Date: 02/23/2021 05:53:00 AM ATTENTION: The Clinical Documentation Specialists (CDI) and [facility] Coding Staff appreciate your assistance in clarifying documentation. Please respond to the clarification below the line at the bottom and electronically sign. The CDI & [facility] Coding staff will review the response and follow-up if needed. Please note: Queries are made part of the Legal Health Record. If you have any questions, please contact the author of this message via ITS. Dr. Agnieszka Sanchez This patient has been noted to be on Po and IV Lasix, please review and provide clinical significance to accurately reflect SOI/ROM. History/Risk Factors: COPD, Pulmonary HTN, DM2, HTN, Covid 19 pneumonia with Sepsis, Aspiration pneumonia, acute hypoxic respiratory failure Clinical Indicators: 02/17 0800 VS/Pulse OX: Temp 103.5, HR 98, RR 28 cough, SOB, prefers sitting upright, SPO2 92% on 10L High Flow [place] BNP: not checked this admission 10/22/2020 Echocardiogram Results: EF 55-60%, LA is severely dilated, severe pulmonary HTN, moderate to severe tricuspid regurg 02/17 Chest X Ray: "Patchy infiltrate persists throughout the right lung left lower lobe with slight interval progression suggested." Treatment: 02/17-02/18 Lasix 40 mg IVP QD Home Meds Lasix 20 PO PRN leg swelling 02/14 3.5L 0.9% NS IVF Bolus followed by 100 cc/hr. In your professional opinion, can you please clarify if the patient has a clinically significant condition below if known? Diastolic Heart Failure: Acute Chronic Acute on Chronic Systolic & Diastolic Heart Failure: Acute Chronic Acute on Chronic Heart Failure Unable to Determine Other, please specify (Last Revision: February 2018) MTDD
== END 2021-02-23 05:53 | disposition expired | DRG 871 ==
LOC: EC 07:51 → 2SICU 11:32 → 4SSUR 02-17 11:55
PROVIDERS: ADMIT Internal Medicine; ATTEND Internal Medicine
PROC: 3E033XZ Introduction of Vasopressor into Peripheral Vein, Percutaneous Approach (ICD-10-PCS; principal; 2021-02-14)
PROC: 5A0955A Assistance with Respiratory Ventilation, Greater than 96 Consecutive Hours, High Flow/Velocity Cannula (ICD-10-PCS; principal; 2021-02-14)
DX: A41.89 Other specified sepsis (principal); U07.1 COVID-19; J12.82 Pneumonia due to coronavirus disease 2019; J96.01 Acute respiratory failure with hypoxia; J69.0 Pneumonitis due to inhalation of food and vomit; R65.21 Severe sepsis with septic shock; G93.41 Metabolic encephalopathy; K81.0 Acute cholecystitis; L97.419 Non-pressure chronic ulcer of right heel and midfoot with unspecified severity; E87.0 Hyperosmolality and hypernatremia; J90 Pleural effusion, not elsewhere classified; J44.0 Chronic obstructive pulmonary disease with (acute) lower respiratory infection; F20.0 Paranoid schizophrenia; I27.20 Pulmonary hypertension, unspecified; E11.621 Type 2 diabetes mellitus with foot ulcer; Z66 Do not resuscitate; Z51.5 Encounter for palliative care; K83.8 Other specified diseases of biliary tract; E87.8 Other disorders of electrolyte and fluid balance, not elsewhere classified; I11.9 Hypertensive heart disease without heart failure; R16.0 Hepatomegaly, not elsewhere classified; D72.810 Lymphocytopenia; E78.5 Hyperlipidemia, unspecified; I44.4 Left anterior fascicular block; F32.9 Major depressive disorder, single episode, unspecified; E03.9 Hypothyroidism, unspecified; R32 Unspecified urinary incontinence; I25.2 Old myocardial infarction; Z71.6 Tobacco abuse counseling; F17.200 Nicotine dependence, unspecified, uncomplicated; Z79.02 Long term (current) use of antithrombotics/antiplatelets; Z79.51 Long term (current) use of inhaled steroids; Z79.84 Long term (current) use of oral hypoglycemic drugs; Z79.890 Hormone replacement therapy; Z79.899 Other long term (current) drug therapy; Z87.81 Personal history of (healed) traumatic fracture
CPT/HCPCS: 36415; 71045; 76705; 80048; 80053; 81001; 82550; 82728; 83605; 83615; 84145; 85025; 85379; 85384; 85610; 85730; 86140; 87040; 87635; 93005; 94640; 99285